=== PATIENT | male | born 1955 | race Two or more races ===

== ENCOUNTER 2017-01-31 09:05 | Day surgery (SDC) | payer MEDICARE ==
[~2017-01-31 09:05] MED LIST: Buffered Lidocaine 1% SYR 3ML* 3 ML/SYR SYRINGE INTRADERM ONE; Midazolam* 1 MG/ML 5 ML VIAL (5 MG) ONE; fentaNYL* 50 MCG/ML 2 ML VIAL (100 MCG VIAL) ONE
[2017-01-31] MEDS ORDERED: ceFAZolin 2 GM PREMIX (*) 2 GM/50 ML BAG IVPB ONE (09:26)
[2017-01-31] MEDS ORDERED: Lidocain 1% EPI 1:100,000 * 30 ML MDV ONE ×2 (09:49→10:20)
[2017-01-31 12:22] VITALS: BP 147/73
== END 2017-01-31 12:03 | disposition home or self-care (01) ==
LOC: OREAST 09:05
PROVIDERS: ATTEND Plastic Surgery
DX: C44.399 Other specified malignant neoplasm of skin of other parts of face (principal); I25.10 Atherosclerotic heart disease of native coronary artery without angina pectoris; Z95.1 Presence of aortocoronary bypass graft; Z79.01 Long term (current) use of anticoagulants; I10 Essential (primary) hypertension; G47.33 Obstructive sleep apnea (adult) (pediatric); Q21.1 Atrial septal defect; E78.5 Hyperlipidemia, unspecified
CPT/HCPCS: 88305; J0690; J2250; J3010

== ENCOUNTER 2018-03-10 12:21 | Inpatient (IN) | payer MEDICARE ==
[2018-03-10] MEDS ORDERED: NS 0.9% 1000 ML* 1,000 ML IV SCH (13:00)
[2018-03-10 13:14] LABS: ABS Basophils 0 10^3/ul (0-0.2); ABS Eosinophils 0.2 10^3/ul (0-0.6); ABS Lymphocytes 1.4 10^3/ul (1.0-4.8); ABS Monocytes 0.5 10^3/ul (0-0.8); ABS Neutrophils 5.3 10^3/ul (1.5-7.7); ABS Nucleated RBC 0 10^3/ul; Eosinophil % 2.6 % (0-6); Hematocrit 32 % (42-52); Hemoglobin 10.8 g/dl (14.0-18.0); Lymphocyte % 18.3 % (25-47); Mean Corpuscular HGB Conc 34 g/dl (31-36); Mean Corpuscular Hemoglobin 29 pg (27-31); Mean Corpuscular Volume 85 fL (80-94); Mean Platelet Volume 9.4 um3 (7.4-10.4); Nucleated Red Blood Cells % 0; Platelet Count 173 10^3/ul (150-450); Red Blood Count 3.71 10^6/ul (4.0-5.4); Red Cell Distribution Width 14 % (10.5-15); White Blood Count 7.4 10^3/ul (3.5-10.8)
[2018-03-10 13:22] LABS: INR 0.86 (0.77-1.02)
[2018-03-10 13:32] LABS: EGFR Non-African American 13.5 (>60)
[2018-03-10 13:32] LABS: Urine Appearance Clear; Urine Blood Negative (Negative); Urine Color Yellow; Urine Ketones Negative (Negative); Urine Protein 2+(100 mg/dL) (Negative); Urine Urobilinogen Negative (Negative)
--- NOTE | 2018-03-10 13:38 | RAD ---
INDICATION: Bradycardia COMPARISON: November 11, 2015 TECHNIQUE: An AP portable view obtained at 1317 hours is submitted. FINDINGS: Bones/Soft Tissues: There are no acute bony findings. There is sternotomy Cardiomediastinal: The cardiac silhouette is enlarged, unchanged. Lungs: There are no infiltrates. Pleura: There are no pleural effusions. Other: None IMPRESSION: ENLARGED CARDIAC SILHOUETTE. LUNGS CLEAR
[2018-03-10] MEDS ORDERED: Atropine SYRINGE* 0.1 MG/ML 10 ML SYRINGE (1 MG) ONE (13:41)
[2018-03-10] MEDS ORDERED: Atropine SYRINGE* 0.1 MG/ML 10 ML SYRINGE (1 MG) IV PUSH ONE (13:44)
[2018-03-10] MEDS ORDERED: Midazolam* 1 MG/ML 5 ML VIAL (5 MG) ONE (13:58)
[2018-03-10] MEDS ORDERED: NS 0.9% 1000 ML* 3,000 ML IV ONE (14:41)
[2018-03-10] MEDS ORDERED: Ondansetron INJ* 2 MG/ML VIAL IV PRN (14:46)
[2018-03-10] MEDS ORDERED: Pantoprazole IV* 40 MG IV ONE (14:46)
[2018-03-10] MEDS ORDERED: Calcium Gluconate INJ* 1 GM in NS 0.9% 100 ML* 100 ML IVPB ONE (14:47)
[2018-03-10] MEDS ORDERED: Dextrose 50% Syringe 50 ML* 25 GM/50 ML SYRINGE IV PUSH ONE (14:50)
[2018-03-10] MEDS ORDERED: Insulin REGULAR(*) 1 UNITS UNIT IV PUSH ONE (14:51)
[2018-03-10] MEDS ORDERED: Sodium Polystyrene ORAL.SOL* 15 GM/60 ML BTL PO ONE (14:52)
[2018-03-10 15:53] LABS: Hematocrit 30 % (42-52); Hemoglobin 10.4 g/dl (14.0-18.0)
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
[2018-03-10 16:24] LABS: EGFR Non-African American 13.6 (>60)
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
[2018-03-10] MEDS: Pantoprazole IV* 80 MG in NS 0.9% 100 ML* 100 ML IVPB SCH (17:04)
[2018-03-10] MEDS ORDERED: Calcium Gluconate INJ* 1 GM in NS 0.9% 50 ML* 50 ML IV ONE (17:15)
[2018-03-10] MEDS ORDERED: hydrALAZINE TAB* 25 MG PO PRN (17:25)
[2018-03-10] MEDS ORDERED: hydrALAZINE IV* 20 MG/ML VIAL IV SLOW PU PRN (18:17)
[2018-03-10] MEDS: Insulin REGULAR(*) 1 UNITS UNIT SUBCUT SCH (18:20)
--- NOTE | 2018-03-10 19:10 | HP ---
CC: Dr. Caban; Pedro Ortega [facility]; Dr. Bauman; Dr. Salvador; Dr. Good * HISTORY AND PHYSICAL: DATE OF ADMISSION: 03/10/18 TIME OF EVALUATION: 2:20 p.m. PRIMARY CARE PROVIDER: Dr. Caban. NEUROLOGIST: Pedro Ortega [facility]. CONSULTING MACHINE GUN MECHANIC: Dr. Bauman. CONSULTING ENGINEERING PROFESSOR: Dr. Salvador. CONSULTING CHIEF CHEMIST: Dr. Good. CHIEF COMPLAINT: "I am weak." HISTORY OF PRESENT ILLNESS: Mr. Watson is a 63-year-old male with a complex past medical history including coronary artery disease, status post CABG in 2002 and multiple stents; hyperlipidemia; hypertension; recurrent TIAs, after which the patient underwent experimental left carotid artery bypass and stenting in [place] in 2009; percutaneous closure of PFO; type 2 diabetes; CKD , stage 3 to 4; obstructive sleep apnea; GERD; BPH; possible seizures, who presented to the emergency room with complaints of weakness. On 03/07/18, the patient had a skin lesion removed by his operations assistant and he was taking ibuprofen for pain. He later on switched ibuprofen to Tylenol, but he started to have multiple episodes of black stools associated with weakness, lightheadedness. Today, his symptoms became worse and he went to his primary care provider for evaluation, but when he arrived to the office, he was told he was too sick and needed to come to the emergency room for further evaluation. He denies chest pain, abdominal pain, nausea, vomiting, palpitations, or shortness of breath. His major complaint is that he feels very weak. He states that he is even too weak to talk and he asked that his give more of his history. PAST MEDICAL HISTORY: 1. CAD, status post CABG in 2002. 2. Status post stent, last stents were placed in 2013. 3. Hyperlipidemia. 4. Hypertension. 5. History of recurrent TIAs after which he underwent experimental left carotid artery bypass and stenting in [place] in 2009. 6. Percutaneous closure of PFO. 7. Type 2 diabetes. 8. CKD, stage 3 to 4. 9. Status post appendectomy. 10. Status post left knee tendon repair. 11. GERD. 12. BPH. 13. History of suspected seizures. 14. Obstructive sleep apnea. MEDICATION LIST: 1. Amlodipine 10 mg p.o. in the morning, 5 mg p.o. in the evening. 2. Vitamin C 1000 mg p.o. in the morning. 3. Aspirin 325 mg p.o. b.i.d. 4. BuSpar 10 mg p.o. b.i.d. 5. Cholecalciferol 2000 units p.o. in the morning. 6. Citalopram 40 mg p.o. in the morning. 7. Clopidogrel 75 mg p.o. in the morning. 8. Finasteride 5 mg p.o. in the evening. 9. Furosemide 40 mg p.o. in the morning. 10. Imdur 240 mg p.o. in the morning. 11. Lisinopril 5 mg p.o. in the morning. 12. Magnesium oxide 400 mg p.o. q.a.m. 13. Metformin 500 mg p.o. b.i.d. 14. Metoprolol tartrate 100 mg p.o. b.i.d. 15. Centrum Silver Men 1 tablet p.o. in the morning. 16. Nitroglycerin 0.4 mg sublingual q.5 minutes p.r.n. chest pain. 17. Fish Oil Triple Strength 1 capsule p.o. t.i.d. 18. Omeprazole 40 mg p.o. q.a.m. 19. Rosuvastatin 20 mg p.o. q.a.m. 20. Spironolactone 25 mg p.o. b.i.d. 21. Tamsulosin 0.4 mg p.o. q.p.m. 22. Vitamin B Complex 1 tablet p.o. q.a.m. ALLERGIES: The patient had rash with BACTRIM. FAMILY HISTORY: Father had a history of CAD. Mother, history of CAD and diabetes. A brother and a sister with hypertension and diabetes. SOCIAL HISTORY: No history of tobacco, alcohol, or drug use. Surrogate decision maker is his , Malka Watson, who is present during our conversation, phone number is [phone]. REVIEW OF SYSTEMS: A 14-point review of systems was performed, and all the pertinent negative and positive findings are in the HPI. PHYSICAL EXAMINATION GENERAL: The patient is an elderly male, lying in the ER stretcher, pale. VITAL SIGNS: Temperature 97.7, heart rate is 28, respiratory rate 16, oxygen saturation 97% on room air, blood pressure is 143/80. HEENT: Pupils are equal, pale mucous membranes. CHEST: Breath sounds are present bilaterally with no added no sounds. CVS: Normal S1, and S2. Regular rate and rhythm. Bradycardic. ABDOMEN: Soft, nontender, nondistended. Bowel sounds are present. EXTREMITIES: No edema. NEURO: He is alert and oriented x3. Able to move all 4 extremities, but states that he feels very weak and would prefer that his answer question. SKIN: Pale and clammy. DIAGNOSTIC STUDIES/LAB DATA: The patient had a CBC that showed a WBC of 7.4, hemoglobin of 10.8, hematocrit of 32, platelets of 173 with 71% neutrophils. INR is 0.86. Chemistry showed sodium 132, potassium 5.9, chloride of 103, bicarb was 22, BUN was 65, creatinine of 4.4, glucose of 122, lactic acid of 0.4 , calcium of 9.1, magnesium 2.7. LFTs are normal. Troponin 0.02. BNP is 878. Urinalysis showed 2+ protein. Stool for occult blood was negative. EKG done on 03/10/18 at 12:32 p.m. showed junctional rhythm at 36 beats per minute and a repeat one done on the same day at 13:48, showed still junctional rhythm with 29 beats per minute and that is new when compared to his prior EKG from January 2016. Chest x-ray showed enlarged cardiac silhouette and lungs are clear. ASSESSMENT AND PLAN: Mr. Watson is a 63-year-old male with a complex past medical history that includes coronary artery disease, status post coronary artery bypass graft and stents; hyperlipidemia; hypertension; recurrent transient ischemic attack, status post experimental left carotid artery bypass and stenting; percutaneous closure of patent foramen ovale; type 2 diabetes; chronic kidney disease, stage 3 to 4; gastroesophageal reflux disease; benign prostatic hyperplasia; sleep apnea, who presents to the emergency room with complaints of weakness, found to have a probable upper gastrointestinal bleed and significant bradycardia. 1. Upper gastrointestinal bleed. The patient is on dual-antiplatelet therapy and he also took ibuprofen over the weekend and it is probably the source of his upper gastrointestinal bleed. His BUN is elevated at 65 from a baseline around 30. He describes black stool, but even though his stool is negative for blood at this time, his history is very convincing. He will be admitted to the intensive care unit. He was already started on a Protonix drip and GI consultation was requested. Regarding his antiplatelet therapy, I discussed his case with Cardiology (Dr. Salvador) and considering the possibility of life- threatening bleed and the fact that his last stent was in 2013, he recommend stopping his antiplatelets for now. We will try to resume those medications as soon as it is safe. The patient and his understand that he will be at risk for thrombotic event, but at this point his bleeding may become life threatening and needs to be treated as a priority. 2. Symptomatic bradycardia. The patient's blood pressure is normal at this point, but he is symptomatic especially considering his gastrointestinal bleed. I am going to hold his antihypertensive. The patient will be admitted to intensive care unit and we are going to monitor him closely. His bradycardia is likely secondary to metoprolol and that medication will also be held. At this point, he has pacer pads on his chest, but as he is maintaining well and his blood pressure is in the normal numbers, he is going to monitored in the intensive care unit. Due to the complexity of his past medical history and presentation, Critical Care consultation was requested with Dr. Good. 3. Hyperkalemia. This is secondary to acute on chronic renal failure. As the patient has a junctional rhythm, we are going to treat his hyperkalemia with calcium gluconate, insulin/glucose, and Kayexalate. 4. Type 2 diabetes. The patient will be n.p.o. We are going to check fingersticks every 6 hours and cover with regular insulin as needed. 5. Anemia. This is secondary to gastrointestinal blood loss. His hemoglobin is 10.8 and does not seem to be far from his baseline of 11, but I believe the patient is hemoconcentrated and as we hydrate him, we will probably see this number drop. We are going to monitor his H and H closely and he will be transfused for hemoglobin below 8 considering his comorbidities. 6. Coronary artery disease. Appears to be stable at this time. The patient has no complaints of chest pain. He will be seen in consultation by Cardiology and at this point his aspirin, clopidogrel, and metoprolol will be held. 7. Benign prostatic hyperplasia. Finasteride and tamsulosin will held for now as the patient is n.p.o., but we will try to resume it as soon as possible. 8. DVT prophylaxis. The patient has a score of 2 on the DVT Prophylaxis Risk Assessment Guide, but pharmacological prophylaxis contraindicated in the setting of gastrointestinal bleed. He will have SCDs. 9. Code status is full. TIME SPENT: Approximately 70 minutes of critical care time was spent to complete the admission. [id number]/[facility] #: [id number] KIKI
[2018-03-10] MEDS: hydrALAZINE TAB* 25 MG PO SCH (19:54)
[2018-03-10] MEDS: Isosorbide Mononitrate ER TAB* 60 MG PO SCH (20:24)
[2018-03-10 21:05] LABS: Hematocrit 34 % (42-52); Hemoglobin 11.6 g/dl (14.0-18.0)
[2018-03-10 21:27] LABS: EGFR Non-African American 15.3 (>60)
--- NOTE | 2018-03-10 21:58 | CONS ---
CONSULTATION REPORT: DATE OF CONSULT: 03/10/18 REQUESTING PHYSICIAN: Dr. Bean. INDICATION: Melena. NARRATIVE: Mr. Watson is a very pleasant 63-year-old gentleman, I had seen him last in August of last year for an EGD and colonoscopy. His EGD revealed a hiatal hernia. The patient was brought in to the emergency room. He has been having melena over the past week. He was recently increased from 325 of aspirin once a day to twice a day. He also was taking some Advil on Saturday and Saturday; however, the melena proceeded the Advil. He has been feeling very weak and lethargic and pretty much just worn out, can barely get out of bed. He is having difficult time mentating and speaking, and his finally brought him to the emergency room today. He was found to be profoundly bradycardic with the heart rate around 27. He has been admitted to the intensive care unit. He has been seen by Cardiology additionally. They feel that his heart rate is due to his metoprolol. They are going to let it wear off. His current hemoglobin is 10.8, BUN is 65, but he does have a creatinine of 4.42. He is also on Plavix. PAST MEDICAL HISTORY: Significant for chronic kidney disease, multiple CVAs, peripheral vascular disease, coronary artery disease, patent foramen ovale, diabetes, hypertension, hyperlipidemia, obstructive sleep apnea. PAST SURGICAL HISTORY: Include carotid artery bypass, coronary artery stenting , recent skin biopsy. MEDICATIONS: Include, 1. Aspirin 325 mg twice a day. 2. BuSpar 5 mg twice a day. 3. Celexa 20 mg a day. 4. Trazodone 50 at night. 5. Flomax. 6. Metoprolol 50 twice a day. 7. Amlodipine 10 mg a day. 8. Plavix 75 mg a day. 9. Proscar 5 mg a day. 10. Protonix 40 mg a day. ALLERGIES: To SULFA and TRIMETHOPRIM. FAMILY HISTORY: Noncontributory. REVIEW OF SYSTEMS: Twelve systems were reviewed and other than that mentioned in the HPI were unremarkable. PHYSICAL EXAM: Temperature is 97.7, pulse is 27 to 51, blood pressure is 147/ 73. General: A weak-looking male, in no apparent distress, alert, he is oriented, pleasant, and fluent. HEENT: Mucous membranes are moist without lesions, ulcers or exudate. Neck is supple. Trachea is midline. Head is normocephalic, atraumatic. Heart: Regular rate and rhythm. Bradycardic. Lungs: Clear to auscultation. No wheezes, rales or rhonchi. Abdomen is obese , positive bowel sounds, soft, nontender, and nondistended. No hepatosplenomegaly, masses, rebound or guarding. Skin is pale and cool to the touch. DIAGNOSTIC STUDIES/LAB DATA: Labs of note, hemoglobin is 10.8 down from 11.1, his baseline is around 10 to 11; white count is 7.4; platelets of 173. BUN is 65, creatinine is 4.42. Sodium is 132, potassium is 5.9, BUN was 32 on December 14. He is heme negative. His INR is 0.86. ASSESSMENT AND PLAN: A very pleasant 63-year-old gentleman admitted with symptomatic bradycardia in addition to melena and then chronic anemia all in the setting of twice a day full strength aspirin use, some additional ibuprofen , and Plavix. It does appear that he is having potentially an upper gastrointestinal bleed. His BUN is much higher than it has been in the past. He is on both aspirin and ibuprofen. It does not appear to be a big bleed at this time. He is being placed in the ICU with IV Protonix. I think that this is a good idea. He has multiple IV access. Cardiologists are managing his bradycardia. He likely will need an EGD over the next few days as soon as his bradycardia has improved. We will continue to follow along very closely. [id number]/[facility] #: [id number] [facility]ITALPrakash
[2018-03-10] MEDS ORDERED: hydrALAZINE TAB* 25 MG PO ONE (22:14)
[2018-03-11] MEDS: Pantoprazole IV* 80 MG in NS 0.9% 100 ML* 100 ML IVPB SCH ×2 (00:32→07:33)
[2018-03-11] MEDS: Insulin REGULAR(*) 1 UNITS UNIT SUBCUT SCH ×2 (00:33→07:38)
[2018-03-11] MEDS: amLODIPine TAB* 5 MG PO SCH ×2 (05:45→10:32)
[2018-03-11 06:28] LABS: Hematocrit 35 % (42-52); Hemoglobin 12.1 g/dl (14.0-18.0); Mean Corpuscular HGB Conc 35 g/dl (31-36); Mean Corpuscular Hemoglobin 29 pg (27-31); Mean Corpuscular Volume 85 fL (80-94); Mean Platelet Volume 9.2 um3 (7.4-10.4); Platelet Count 177 10^3/ul (150-450); Red Blood Count 4.11 10^6/ul (4.0-5.4); Red Cell Distribution Width 14 % (10.5-15); White Blood Count 8.2 10^3/ul (3.5-10.8)
[2018-03-11 06:51] LABS: EGFR Non-African American 16.4 (>60)
[2018-03-11] MEDS: NS 0.9% 1000 ML* 1,000 ML IV SCH ×2 (07:10→21:54)
[2018-03-11] MEDS: hydrALAZINE TAB* 100 MG ** ONE HUNDRED PO SCH ×2 (07:41→16:57)
--- NOTE | 2018-03-11 09:13 | PN ---
Progress Note - Progress Note Date of Service: 03/11/17 Note: Progress Note Critical Care 24 hour events: -admitted to ICU yesterday -chauhan placed for obstruction, has 1+ liter in bladder drained -HR improved to 60s now -BP elevated overnight, had to increase hydralazine PO, added norvasc -no vom/nausea; green stool+ overnight x1, some tarry stool but no blood -no abd pain/fever/chills/cp/sob -awake, alert, no distress, hungry, wants to go home for wifes bday tomorrow. -cardiology at bedside this morning -on clear liquids last night only Tele: NSR Vitals: Vital Signs Temp 98.4 F 03/11/18 08:00 Pulse 60 03/11/18 08:00 Resp 21 03/11/18 08:00 BP 179/87 03/11/18 07:00 Pulse Ox 94 03/11/18 08:00 Intake & Output 03/10/18 03/11/18 03/11/18 18:59 06:59 18:59 Intake Total 200 596.8 0 Output Total 1230 4550 375 Balance -1030 -3953.2 -375 Weight 245 lb 9.519 oz 188 lb 0.869 oz Intake: IV Fluids 200 472 NS (0.9%) 472 Medicated IV 104.8 GEN - Pantoprazole/ 104.8 Protonix Oral 0 20 0 Output: Urine 180 0 Chauhan 1050 2500 375 Other: Date of Last Bowel 03/11/18 Movement # Bowel Movements 1 1 Estimated Stool Amount Large O2/Vent: RA Infusions: NS 75cc/hr Current Medications: Amlodipine Besylate (Norvasc Tab*) 5 mg PO DAILY [facility] Last Admin: 03/11/18 05:45 Dose: 5 mg Buspirone HCl (Buspar Tab*) 10 mg PO BID [facility] Citalopram Hydrobromide (Celexa Tab*) 40 mg PO QAM [facility] Clopidogrel Bisulfate (Plavix Tab*) 75 mg PO QAM [facility] Finasteride (Proscar Tab*) 5 mg PO QPM [facility] Hydralazine HCl (Apresoline Iv*) 10 mg IV SLOW PU Q2H PRN PRN Reason: Systolic Bp Greater Than:180 Last Admin: 03/10/18 18:36 Dose: 10 mg Hydralazine HCl (Apresoline Tab*) 100 mg PO Q8H [facility] Last Admin: 03/11/18 07:41 Dose: 100 mg Pantoprazole Sodium 80 mg/ (Sodium Chloride) 100 mls @ 10 mls/hr IVPB Q10H [facility] Last Admin: 03/11/18 07:33 Dose: Not Given Sodium Chloride (Ns 0.9% 1000 Ml*) 1,000 mls @ 75 mls/hr IV PER RATE [facility] Last Admin: 03/11/18 07:10 Dose: 75 mls/hr Insulin Human Regular (Insulin Regular(*)) 0 units SUBCUT Q6HR [facility] PRN Reason: Protocol Last Admin: 03/11/18 07:38 Dose: Not Given Isosorbide Mononitrate (Imdur Er Tab*) 120 mg PO BID [facility] Last Admin: 03/10/18 20:24 Dose: 120 mg Ondansetron HCl (Zofran Inj*) 4 mg IV Q6H PRN PRN Reason: NAUSEA Tamsulosin HCl (Flomax Cap*) 0.4 mg PO QPM [facility] Physical Exam: General: awake, alert, no distress, no diaphoresis Head: normocephalic, atraumatic HEENT: mild pallor, no icterus, moist mucous membranes Neck: soft, supple, no jvd, no stridor CVS: regular, normal rate, no murmur Resp: bilateral air entry, no rhales, no wheeze, no rhonchi, no acc muscle use; old sternotomy scar+ Abdomen: soft, nontender, nondistended, bowel sounds present Ext: pulses+, warm, no edema Skin: intact, no breakdown; right arm biopsy site intact Neuro: awake, alert, orientedx3, moving all extremities, no gross focal deficit Labs: Laboratory Results - last 24 hr 03/10/18 03/10/18 03/10/18 12:52 12:55 12:55 WBC RBC Hgb Hct MCV MCH MCHC RDW Plt Count MPV Neut % (Auto) Lymph % (Auto) [place] % (Auto) Eos % (Auto) Baso % (Auto) Absolute Neuts (auto) Absolute Lymphs (auto) Absolute Monos (auto) Absolute Eos (auto) Absolute Basos (auto) Absolute Nucleated RBC Nucleated RBC % INR (Anticoag Therapy) 0.86 APTT 28.8 Sodium Potassium Chloride Carbon Dioxide Anion Gap BUN Creatinine Est GFR ( Amer) Est GFR (Non-Af Amer) BUN/Creatinine Ratio Glucose POC Glucose (mg/dL) Lactic Acid Calcium Magnesium Total Bilirubin AST ALT Alkaline Phosphatase Ammonia Total Creatine Kinase CK-MB (CK-2) Troponin I C-Reactive Protein B-Natriuretic Peptide Total Protein Albumin Globulin Albumin/Globulin Ratio Lipase TSH Urine Color Yellow Urine Appearance Clear Urine pH 6.0 Ur Specific [place] 1.010 Urine Protein 2+(100 mg/dl) A Urine Ketones Negative Urine Blood Negative Urine Nitrate Negative Urine Bilirubin Negative Urine Urobilinogen Negative Ur Leukocyte Esterase Negative Urine WBC (Auto) Trace(0-5/hpf) Urine RBC (Auto) Trace(0-2/hpf) Ur Squamous Epith Cells Present A Urine Bacteria Absent Urine Glucose Negative Urine Ascorbic Acid * A Blood Type B Positive Antibody Screen Negative 03/10/18 03/10/18 03/10/18 12:55 12:55 12:55 WBC 7.4 RBC 3.71 L Hgb 10.8 L Hct 32 L MCV 85 MCH 29 MCHC 34 RDW 14 Plt Count 173 MPV 9.4 Neut % (Auto) 71.8 Lymph % (Auto) 18.3 L [place] % (Auto) 6.8 Eos % (Auto) 2.6 Baso % (Auto) 0.5 Absolute Neuts (auto) 5.3 Absolute Lymphs (auto) 1.4 Absolute Monos (auto) 0.5 Absolute Eos (auto) 0.2 Absolute Basos (auto) 0 Absolute Nucleated RBC 0 Nucleated RBC % 0 INR (Anticoag Therapy) APTT Sodium 132 L Potassium 5.9 H Chloride 103 Carbon Dioxide 22 Anion Gap 7 BUN 65 H Creatinine 4.42 H Est GFR ( Amer) 17.4 Est GFR (Non-Af Amer) 13.5 BUN/Creatinine Ratio 14.7 Glucose 122 H POC Glucose (mg/dL) Lactic Acid Calcium 9.1 Magnesium 2.7 Total Bilirubin 0.60 AST 18 ALT 32 Alkaline Phosphatase 74 Ammonia 37 Total Creatine Kinase 54 CK-MB (CK-2) 2.3 Troponin I 0.02 C-Reactive Protein 2.00 B-Natriuretic Peptide 878 H Total Protein 6.6 Albumin 3.9 Globulin 2.7 Albumin/Globulin Ratio 1.4 Lipase 75 TSH 3.24 Urine Color Urine Appearance Urine pH Ur Specific [place] Urine Protein Urine Ketones Urine Blood Urine Nitrate Urine Bilirubin Urine Urobilinogen Ur Leukocyte Esterase Urine WBC (Auto) Urine RBC (Auto) Ur Squamous Epith Cells Urine Bacteria Urine Glucose Urine Ascorbic Acid Blood Type Antibody Screen 03/10/18 03/10/18 03/10/18 12:55 15:45 15:45 WBC RBC Hgb 10.4 L Hct 30 L MCV MCH MCHC RDW Plt Count MPV Neut % (Auto) Lymph % (Auto) [place] % (Auto) Eos % (Auto) Baso % (Auto) Absolute Neuts (auto) Absolute Lymphs (auto) Absolute Monos (auto) Absolute Eos (auto) Absolute Basos (auto) Absolute Nucleated RBC Nucleated RBC % INR (Anticoag Therapy) APTT Sodium 134 L Potassium 5.5 H Chloride 106 Carbon Dioxide 21 L Anion Gap 7 BUN 65 H Creatinine 4.38 H Est GFR ( Amer) 17.5 Est GFR (Non-Af Amer) 13.6 BUN/Creatinine Ratio 14.8 Glucose 92 POC Glucose (mg/dL) Lactic Acid 0.4 L Calcium 8.6 Magnesium Total Bilirubin AST ALT Alkaline Phosphatase Ammonia Total Creatine Kinase CK-MB (CK-2) Troponin I C-Reactive Protein B-Natriuretic Peptide Total Protein Albumin Globulin Albumin/Globulin Ratio Lipase TSH Urine Color Urine Appearance Urine pH Ur Specific [place] Urine Protein Urine Ketones Urine Blood Urine Nitrate Urine Bilirubin Urine Urobilinogen Ur Leukocyte Esterase Urine WBC (Auto) Urine RBC (Auto) Ur Squamous Epith Cells Urine Bacteria Urine Glucose Urine Ascorbic Acid Blood Type Antibody Screen 03/10/18 03/10/18 03/10/18 17:49 20:45 20:45 WBC RBC Hgb 11.6 L Hct 34 L MCV MCH MCHC RDW Plt Count MPV Neut % (Auto) Lymph % (Auto) [place] % (Auto) Eos % (Auto) Baso % (Auto) Absolute Neuts (auto) Absolute Lymphs (auto) Absolute Monos (auto) Absolute Eos (auto) Absolute Basos (auto) Absolute Nucleated RBC Nucleated RBC % INR (Anticoag Therapy) APTT Sodium 136 L Potassium 5.5 H Chloride 107 Carbon Dioxide 20 L Anion Gap 9 BUN 64 H Creatinine 3.96 H Est GFR ( Amer) 19.7 Est GFR (Non-Af Amer) 15.3 BUN/Creatinine Ratio 16.2 Glucose 99 POC Glucose (mg/dL) 95 Lactic Acid Calcium 9.5 Magnesium Total Bilirubin AST ALT Alkaline Phosphatase Ammonia Total Creatine Kinase CK-MB (CK-2) Troponin I C-Reactive Protein B-Natriuretic Peptide Total Protein Albumin Globulin Albumin/Globulin Ratio Lipase TSH Urine Color Urine Appearance Urine pH Ur Specific [place] Urine Protein Urine Ketones Urine Blood Urine Nitrate Urine Bilirubin Urine Urobilinogen Ur Leukocyte Esterase Urine WBC (Auto) Urine RBC (Auto) Ur Squamous Epith Cells Urine Bacteria Urine Glucose Urine Ascorbic Acid Blood Type Antibody Screen 03/11/18 03/11/18 03/11/18 00:27 05:55 05:55 WBC 8.2 RBC 4.11 Hgb 12.1 L Hct 35 L MCV 85 MCH 29 MCHC 35 RDW 14 Plt Count 177 MPV 9.2 Neut % (Auto) Lymph % (Auto) [place] % (Auto) Eos % (Auto) Baso % (Auto) Absolute Neuts (auto) Absolute Lymphs (auto) Absolute Monos (auto) Absolute Eos (auto) Absolute Basos (auto) Absolute Nucleated RBC Nucleated RBC % INR (Anticoag Therapy) APTT Sodium 138 L Potassium 5.4 H Chloride 109 Carbon Dioxide 22 Anion Gap 7 BUN 57 H Creatinine 3.73 H Est GFR ( Amer) 21.1 Est GFR (Non-Af Amer) 16.4 BUN/Creatinine Ratio 15.3 Glucose 109 H POC Glucose (mg/dL) 95 Lactic Acid Calcium 9.5 Magnesium 2.4 Total Bilirubin AST ALT Alkaline Phosphatase Ammonia Total Creatine Kinase CK-MB (CK-2) Troponin I C-Reactive Protein B-Natriuretic Peptide Total Protein Albumin Globulin Albumin/Globulin Ratio Lipase TSH Urine Color Urine Appearance Urine pH Ur Specific [place] Urine Protein Urine Ketones Urine Blood Urine Nitrate Urine Bilirubin Urine Urobilinogen Ur Leukocyte Esterase Urine WBC (Auto) Urine RBC (Auto) Ur Squamous Epith Cells Urine Bacteria Urine Glucose Urine Ascorbic Acid Blood Type Antibody Screen 03/11/18 07:37 WBC RBC Hgb Hct MCV MCH MCHC RDW Plt Count MPV Neut % (Auto) Lymph % (Auto) [place] % (Auto) Eos % (Auto) Baso % (Auto) Absolute Neuts (auto) Absolute Lymphs (auto) Absolute Monos (auto) Absolute Eos (auto) Absolute Basos (auto) Absolute Nucleated RBC Nucleated RBC % INR (Anticoag Therapy) APTT Sodium Potassium Chloride Carbon Dioxide Anion Gap BUN Creatinine Est GFR ( Amer) Est GFR (Non-Af Amer) BUN/Creatinine Ratio Glucose POC Glucose (mg/dL) 118 H Lactic Acid Calcium Magnesium Total Bilirubin AST ALT Alkaline Phosphatase Ammonia Total Creatine Kinase CK-MB (CK-2) Troponin I C-Reactive Protein B-Natriuretic Peptide Total Protein Albumin Globulin Albumin/Globulin Ratio Lipase TSH Urine Color Urine Appearance Urine pH Ur Specific [place] Urine Protein Urine Ketones Urine Blood Urine Nitrate Urine Bilirubin Urine Urobilinogen Ur Leukocyte Esterase Urine WBC (Auto) Urine RBC (Auto) Ur Squamous Epith Cells Urine Bacteria Urine Glucose Urine Ascorbic Acid Blood Type Antibody Screen Imaging: cxr 03/10 - no infiltrate/effusion Assessment: 63y M pmhx of CAD s/p CABG, h/o CVA s/p Carotid/cerebral stent 2013 , DM, HLD, HTN, PVD, Perc Closure of PFO, Sleep Apnea, GERD, Skin Ca; States 1 week ago he was becoming more short of breath on exertion, increasing fatigue and weakness. Noticed stools were more black each day. No nausea/vom/abd pain. Stools more loose and black. Mild chest pressure last week and took NTG SL. Dizziness+, lightheaded+, no syncope/LOC. No change in urine outputs. No fever/ chills. Has been compliant with medications. Skin surgery 3 days back with excision, since then has taken motrin Saturday and Saturday, changed to Tylenol Saturday and today. At home normally on ASA 325 bid and Plavix 75mg daily for stents. -Sinus bradycardia, resolved -Hyperkalemia -TREVER likely from pre-renal azotemia/hypoperfusion/anemia/volume depletion -Suspected Upper GI hemorrhage 2/2 to NSAID/Aspirin -anemia Plan: Neuro- stable, awake, alert. h/o stroke with carotid stent in past. fall prec. will restart plavix po. CVS- BP stable, hypertensive. cont hydralazine 100 tid, norvasc 5, finasterid, imdur 120 bid. Sinus bradycardia improved to 60s now, hold off BB today, re- eval tomorrow. Hg stable, no drop noted, no transfusions given. IVF NS 75cc/ hour continued for now. Good urine output. Transfuse to keep Hg >7. no ACEI for now. Resp- RA, no distress ID- afebrile. wbc okay. no abx indicated. GI- No n/v/abd pain. Loose stools+ but once overnight. c.diff neg, culture pending. Minimal black stools, with stable h/h. Suspect gastritis as etiology. Will change PPI infusion to PPI IV bid. Need to discuss with GI regarding plan for EGD. WIll advance to full liquid diet for now. Holding ASA for now, will restart plavix tomorrow for PVD/stents/CAD/TIA history. No further NSAIDS. Renal- TREVER noted, multifactorial from NSAID + volume depletion from diuretics + poor po intake + GI hemorrhage + diarrhea. Cr coming down, K okay, no acidosis. Keep Chauhan today. K 5.4, no tx for now. WIll keep NS 75cc/hr for now. Hold diuretics. Heme- hg 12. Plt okay. Holding aspirin. Plavix restart tomorrow. Endo- fingersticks q6h. hold metformin 2/2 to TREVER. SSI q6h. Musculsk- oob to chair Wounds- none Nutrition- full liquid diet DVT prophylaxis: SCDs GI prophylaxis: PPI Central Line: no Arterial Line: no Chauhan Cathetor: yes 03/11 Disposition: ICU Code Status: full code Total Critical Care time is 35 minutes, excluding procedures/teaching Michael Good MD [employer] (Electronically Signed)
[2018-03-11] MEDS: Isosorbide Mononitrate ER TAB* 60 MG PO SCH ×2 (09:36→22:02)
--- NOTE | 2018-03-11 09:48 | PN ---
Subjective Date of Service: 03/11/18 Interval History: frustrated that he has a chauhan catheter Feels he has difficulty recalling events after CVA and gets frustrated but is actually doing a very good job Denies N/V, LH, CP SOB Had BM overnight but cannot tell me color/consistency Objective Active Medications: Amlodipine Besylate (Norvasc Tab*) 5 mg PO DAILY [facility] Last Admin: 03/11/18 05:45 Dose: 5 mg Buspirone HCl (Buspar Tab*) 10 mg PO BID [facility] Citalopram Hydrobromide (Celexa Tab*) 40 mg PO QAM [facility] Clopidogrel Bisulfate (Plavix Tab*) 75 mg PO QAM [facility] Finasteride (Proscar Tab*) 5 mg PO QPM [facility] Hydralazine HCl (Apresoline Iv*) 10 mg IV SLOW PU Q2H PRN PRN Reason: Systolic Bp Greater Than:180 Last Admin: 03/10/18 18:36 Dose: 10 mg Hydralazine HCl (Apresoline Tab*) 100 mg PO Q8H [facility] Last Admin: 03/11/18 07:41 Dose: 100 mg Sodium Chloride (Ns 0.9% 1000 Ml*) 1,000 mls @ 75 mls/hr IV PER RATE [facility] Last Admin: 03/11/18 07:10 Dose: 75 mls/hr Insulin Human Regular (Insulin Regular(*)) 0 units SUBCUT Q6HR [facility] PRN Reason: Protocol Last Admin: 03/11/18 07:38 Dose: Not Given Isosorbide Mononitrate (Imdur Er Tab*) 120 mg PO BID [facility] Last Admin: 03/11/18 09:36 Dose: 120 mg Ondansetron HCl (Zofran Inj*) 4 mg IV Q6H PRN PRN Reason: NAUSEA Pantoprazole Sodium (Protonix Iv*) 40 mg IV Q12HR [facility] Tamsulosin HCl (Flomax Cap*) 0.4 mg PO QPM [facility] Vital Signs - 8 hr 03/11/18 03/11/18 03/11/18 02:00 03:00 04:00 Temperature 98.1 F 98.1 F 98.1 F Pulse Rate 57 55 56 Respiratory 20 19 17 Rate Blood Pressure 159/90 153/89 151/86 (mmHg) O2 Sat by Pulse 94 94 94 Oximetry 03/11/18 03/11/18 03/11/18 05:00 05:01 06:00 Temperature 98.1 F 98.1 F 98.1 F Pulse Rate 58 58 60 Respiratory 15 13 26 Rate Blood Pressure 162/84 164/94 (mmHg) O2 Sat by Pulse 95 93 95 Oximetry 03/11/18 03/11/18 03/11/18 07:00 07:52 08:00 Temperature 98.2 F 98.4 F Pulse Rate 59 60 Respiratory 20 22 21 Rate Blood Pressure 179/87 (mmHg) O2 Sat by Pulse 94 94 Oximetry 03/11/18 03/11/18 08:08 09:00 Temperature 98.4 F 98.4 F Pulse Rate 60 64 Respiratory 18 21 Rate Blood Pressure 163/83 150/80 (mmHg) O2 Sat by Pulse 96 96 Oximetry Oxygen Devices in Use Now: None Appearance: sitting up, NAD Eyes: No Scleral Icterus, PERRLA Ears/Nose/Mouth/Throat: NL Teeth, Lips, Gums, Clear Oropharnyx Neck: NL Appearance and Movements; NL JVP, Trachea Midline Respiratory: Symmetrical Chest Expansion and Respiratory Effort, Clear to Auscultation Cardiovascular: NL Sounds; No Murmurs; No JVD, RRR Abdominal: NL Sounds; No Tenderness; No Distention, No Hepatosplenomegaly Lymphatic: No Cervical Adenopathy, No Axillary Adenopathy Extremities: No Edema Skin: No Rash or Ulcers Neurological: Alert and Oriented x 3 Lines/Tubes/Other Access: Clean, Dry and Intact Chauhan - murky, pink tinged fluid Result Diagrams: 03/11/18 05:55 03/11/18 05:55 Additional Lab and Data: Lab Results 03/10/18 03/10/18 03/10/18 Range/Units 12:52 12:55 12:55 WBC (3.5-10.8) 10^3/ul RBC (4.0-5.4) 10^6/ul Hgb (14.0-18.0) g/dl Hct (42-52) % MCV (80-94) fL MCH (27-31) pg MCHC (31-36) g/dl RDW (10.5-15) % Plt Count (150-450) 10^3/ul MPV (7.4-10.4) um3 Neut % (Auto) (38-83) % Lymph % (Auto) (25-47) % [place] % (Auto) (0-7) % Eos % (Auto) (0-6) % Baso % (Auto) (0-2) % Absolute Neuts (auto) (1.5-7.7) 10^3/ul Absolute Lymphs (auto) (1.0-4.8) 10^3/ul Absolute Monos (auto) (0-0.8) 10^3/ul Absolute Eos (auto) (0-0.6) 10^3/ul Absolute Basos (auto) (0-0.2) 10^3/ul Absolute Nucleated RBC 10^3/ul Nucleated RBC % INR (Anticoag Therapy) 0.86 (0.77-1.02) APTT 28.8 (26.0-36.3) seconds Sodium (139-145) mmol/L Potassium (3.5-5.0) mmol/L Chloride (101-111) mmol/L Carbon Dioxide (22-32) mmol/L Anion Gap (2-11) mmol/L BUN (6-24) mg/dL Creatinine (0.67-1.17) mg/dL Est GFR ( Amer) (>60) Est GFR (Non-Af Amer) (>60) BUN/Creatinine Ratio (8-20) Glucose (70-100) mg/dL Lactic Acid (0.5-2.0) mmol/L Calcium (8.6-10.3) mg/dL Magnesium (1.9-2.7) mg/dL Total Bilirubin (0.2-1.0) mg/dL AST (13-39) U/L ALT (7-52) U/L Alkaline Phosphatase (34-104) U/L Ammonia (16-53) mcmol/L Total Creatine Kinase (10-223) U/L CK-MB (CK-2) (0.6-6.3) ng/mL Troponin I (<0.04) ng/mL C-Reactive Protein (< 5.00) mg/L B-Natriuretic Peptide ( - 100) pg/mL Total Protein (6.4-8.9) g/dL Albumin (3.2-5.2) g/dL Globulin (2-4) g/dL Albumin/Globulin Ratio (1-3) Lipase (11.0-82.0) U/L TSH (0.34-5.60) mcIU/mL Urine Color Yellow Urine Appearance Clear Urine pH 6.0 (5-9) Ur Specific [place] 1.010 (1.010-1.030) Urine Protein 2+(100 mg/dl) A (Negative) Urine Ketones Negative (Negative) Urine Blood Negative (Negative) Urine Nitrate Negative (Negative) Urine Bilirubin Negative (Negative) Urine Urobilinogen Negative (Negative) Ur Leukocyte Esterase Negative (Negative) Urine WBC (Auto) Trace(0-5/hpf) (Absent) Urine RBC (Auto) Trace(0-2/hpf) (Absent) Ur Squamous Epith Cells Present A (Absent) Urine Bacteria Absent (Absent) Urine Glucose Negative (Negative) Urine Ascorbic Acid * A (Negative) Blood Type B Positive Antibody Screen Negative 03/10/18 03/10/18 03/10/18 Range/Units 12:55 12:55 12:55 WBC 7.4 (3.5-10.8) 10^3/ul RBC 3.71 L (4.0-5.4) 10^6/ul Hgb 10.8 L (14.0-18.0) g/dl Hct 32 L (42-52) % MCV 85 (80-94) fL MCH 29 (27-31) pg MCHC 34 (31-36) g/dl RDW 14 (10.5-15) % Plt Count 173 (150-450) 10^3/ul MPV 9.4 (7.4-10.4) um3 Neut % (Auto) 71.8 (38-83) % Lymph % (Auto) 18.3 L (25-47) % [place] % (Auto) 6.8 (0-7) % Eos % (Auto) 2.6 (0-6) % Baso % (Auto) 0.5 (0-2) % Absolute Neuts (auto) 5.3 (1.5-7.7) 10^3/ul Absolute Lymphs (auto) 1.4 (1.0-4.8) 10^3/ul Absolute Monos (auto) 0.5 (0-0.8) 10^3/ul Absolute Eos (auto) 0.2 (0-0.6) 10^3/ul Absolute Basos (auto) 0 (0-0.2) 10^3/ul Absolute Nucleated RBC 0 10^3/ul Nucleated RBC % 0 INR (Anticoag Therapy) (0.77-1.02) APTT (26.0-36.3) seconds Sodium 132 L (139-145) mmol/L Potassium 5.9 H (3.5-5.0) mmol/L Chloride 103 (101-111) mmol/L Carbon Dioxide 22 (22-32) mmol/L Anion Gap 7 (2-11) mmol/L BUN 65 H (6-24) mg/dL Creatinine 4.42 H (0.67-1.17) mg/dL Est GFR ( Amer) 17.4 (>60) Est GFR (Non-Af Amer) 13.5 (>60) BUN/Creatinine Ratio 14.7 (8-20) Glucose 122 H (70-100) mg/dL Lactic Acid (0.5-2.0) mmol/L Calcium 9.1 (8.6-10.3) mg/dL Magnesium 2.7 (1.9-2.7) mg/dL Total Bilirubin 0.60 (0.2-1.0) mg/dL AST 18 (13-39) U/L ALT 32 (7-52) U/L Alkaline Phosphatase 74 (34-104) U/L Ammonia 37 (16-53) mcmol/L Total Creatine Kinase 54 (10-223) U/L CK-MB (CK-2) 2.3 (0.6-6.3) ng/mL Troponin I 0.02 (<0.04) ng/mL C-Reactive Protein 2.00 (< 5.00) mg/L B-Natriuretic Peptide 878 H ( - 100) pg/mL Total Protein 6.6 (6.4-8.9) g/dL Albumin 3.9 (3.2-5.2) g/dL Globulin 2.7 (2-4) g/dL Albumin/Globulin Ratio 1.4 (1-3) Lipase 75 (11.0-82.0) U/L TSH 3.24 (0.34-5.60) mcIU/mL Urine Color Urine Appearance Urine pH (5-9) Ur Specific [place] (1.010-1.030) Urine Protein (Negative) Urine Ketones (Negative) Urine Blood (Negative) Urine Nitrate (Negative) Urine Bilirubin (Negative) Urine Urobilinogen (Negative) Ur Leukocyte Esterase (Negative) Urine WBC (Auto) (Absent) Urine RBC (Auto) (Absent) Ur Squamous Epith Cells (Absent) Urine Bacteria (Absent) Urine Glucose (Negative) Urine Ascorbic Acid (Negative) Blood Type Antibody Screen 03/10/18 Range/Units 12:55 WBC (3.5-10.8) 10^3/ul RBC (4.0-5.4) 10^6/ul Hgb (14.0-18.0) g/dl Hct (42-52) % MCV (80-94) fL MCH (27-31) pg MCHC (31-36) g/dl RDW (10.5-15) % Plt Count (150-450) 10^3/ul MPV (7.4-10.4) um3 Neut % (Auto) (38-83) % Lymph % (Auto) (25-47) % [place] % (Auto) (0-7) % Eos % (Auto) (0-6) % Baso % (Auto) (0-2) % Absolute Neuts (auto) (1.5-7.7) 10^3/ul Absolute Lymphs (auto) (1.0-4.8) 10^3/ul Absolute Monos (auto) (0-0.8) 10^3/ul Absolute Eos (auto) (0-0.6) 10^3/ul Absolute Basos (auto) (0-0.2) 10^3/ul Absolute Nucleated RBC 10^3/ul Nucleated RBC % INR (Anticoag Therapy) (0.77-1.02) APTT (26.0-36.3) seconds Sodium (139-145) mmol/L Potassium (3.5-5.0) mmol/L Chloride (101-111) mmol/L Carbon Dioxide (22-32) mmol/L Anion Gap (2-11) mmol/L BUN (6-24) mg/dL Creatinine (0.67-1.17) mg/dL Est GFR ( Amer) (>60) Est GFR (Non-Af Amer) (>60) BUN/Creatinine Ratio (8-20) Glucose (70-100) mg/dL Lactic Acid 0.4 L (0.5-2.0) mmol/L Calcium (8.6-10.3) mg/dL Magnesium (1.9-2.7) mg/dL Total Bilirubin (0.2-1.0) mg/dL AST (13-39) U/L ALT (7-52) U/L Alkaline Phosphatase (34-104) U/L Ammonia (16-53) mcmol/L Total Creatine Kinase (10-223) U/L CK-MB (CK-2) (0.6-6.3) ng/mL Troponin I (<0.04) ng/mL C-Reactive Protein (< 5.00) mg/L B-Natriuretic Peptide ( - 100) pg/mL Total Protein (6.4-8.9) g/dL Albumin (3.2-5.2) g/dL Globulin (2-4) g/dL Albumin/Globulin Ratio (1-3) Lipase (11.0-82.0) U/L TSH (0.34-5.60) mcIU/mL Urine Color Urine Appearance Urine pH (5-9) Ur Specific [place] (1.010-1.030) Urine Protein (Negative) Urine Ketones (Negative) Urine Blood (Negative) Urine Nitrate (Negative) Urine Bilirubin (Negative) Urine Urobilinogen (Negative) Ur Leukocyte Esterase (Negative) Urine WBC (Auto) (Absent) Urine RBC (Auto) (Absent) Ur Squamous Epith Cells (Absent) Urine Bacteria (Absent) Urine Glucose (Negative) Urine Ascorbic Acid (Negative) Blood Type Antibody Screen Microbiology and Other Data: Microbiology 03/11/18 01:00 Stool Gross Appearance - Final Stool C. 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 (2) GIB (gastrointestinal bleeding) Comment: stool occult negative No e/o ongoing bleeding and H/H stable transitioned to PPI IV BID advance diet Will discuss with GI if needs EGD at this time (3) Acute kidney failure Comment: [employer] Reports 1 week diarrhea [employer] NSAID use after skin biopsy Poor forward flow in setting of bradycardia c/w IV normal saline (4) Bradycardia Comment: Suspect in setting of beta kedar with AKF holding metoprolol bradycardia resolved (5) Diabetes Comment: Lispro SS (6) HTN (hypertension) Comment: hydralazine imdur (7) S/P coronary artery stent placement Comment: Hold ASA c/w plavix (8) Hyperkalemia Comment: kayexalate x 1 (9) DVT prophylaxis Comment: SCDs
[2018-03-11] MEDS ORDERED: Sodium Polystyrene ORAL.SOL* 15 GM/60 ML BTL PO ONE (09:50)
[2018-03-11] MEDS ORDERED: Dextrose 50% Syringe 50 ML* 25 GM/50 ML SYRINGE IV PUSH PRN (09:51)
[2018-03-11] MEDS: Pantoprazole IV* 40 MG IV SCH ×2 (10:44→21:59)
--- NOTE | 2018-03-11 10:56 | CONS ---
CC: Dr. Bauman; Dr. Hannon; Dr. Caban CARDIOLOGY CONSULTATION DATE OF CONSULT: 03/10/2018. INDICATION FOR CONSULTATION: Bradycardia. HISTORY OF PRESENT ILLNESS: The patient is a 63-year-old gentleman with a history of coronary artery disease, history of coronary bypass surgery and multiple stents in the past, history of renal insuff iciency, hypertension, and TIA's in the past who came to the emergency room because of feeling poorly . The patient states that he has been having dark stools for the past couple of days. He has been t aking slightly more Motrin than he usually does. He also has been having loose bowel movements. The patient denied any chest pain. He denied any lightheadedness, dizziness, or syncope. On arrival to the emergency room, he was noted to be bradycardic, down to 30 beats per minute with occasional junc tional rhythms. Again, the patient had no anginal-type symptoms. The patient was admitted to the [facility] for evaluation for possible GI bleed and his renal insufficiency and bradycardia. The patient denied any nausea or vomiting. He denied any fevers or chills. PAST MEDICAL HISTORY: Significant for coronary artery disease. He had a bypass surgery in 2002. Hi s last stent implantation was 2013. History of TIA's in the past. History of carotid bypass and thiago nting in 2009. History of a PFO closure in the distant past. OUTPATIENT MEDICATIONS: 1. Amlodipine 10 mg in the morning and 5 mg in the evening. 2. Aspirin 325 a day. 3. Calciferol 2,000 units in the morning. 4. Citalopram 40 mg a day. 5. Plavix 75 mg a day. 6. Finasteride 5 mg in the evening. 7. Lasix 40 mg a day. 8. Imdur 240 mg a day. 9. Lisinopril 5 mg a day. 10. Metformin 500 mg b.i.d. 11. Metoprolol Tartrate 100 mg b.i.d. 12. Fish oil tablets. 13. Omeprazole 40 mg a day. 14. Crestor 20 mg a day. 15. Spironolactone 25 mg b.i.d. 16. Flomax 0.4 mg a day. ALLERGIES: BACTRIM. FAMILY HISTORY: Father had a history of coronary artery disease. Mother had a history of diabetes. SOCIAL HISTORY: He is . He denies tobacco or alcohol use. He is retired. PHYSICAL EXAM: Vital Signs: Height 6 feet, weight 188 pounds. Temperature 98, heart rate 40, blood pressure 142/83, respiratory rate 20, oxygen saturation 96 percent on room air. Sclerae anicteric. Oropharynx is pink without erythema. Neck: Carotids 2+ without bruits. JVD is normal. Thyroid is normal. Cardiac: S1, S2 without any murmurs, rubs, or gallops. Lungs: Clear to auscultation bilate rally. There is no dullness to percussion. Abdomen: Soft, nontender, nondistended with normoactive bowel sounds. Extremities: Minimal edema. Neuro: The patient is awake, alert, and oriented. He m oves all four extremities equally. DIAGNOSTIC STUDIES/LAB DATA: White count 7.4, hemoglobin 10, hematocrit 32, platelet count 175. Lona mistries: Potassium 5.9, BUN 65, creatinine 4.4 which is up from his baseline of 1.8. AST normal. A LT within normal limits. Troponin level was normal. TSH 3.2. EKG shows a junctional rhythm at 30 beats per minute. IMPRESSION: This is a 63-year-old gentleman with a history of coronary artery disease who came to [facility] emergency room feeling poorly for the past couple of days with a history of some dark, tarry stools . The question is whether the patient was having a GI bleed. RECOMMENDATIONS: At this time, stop his aspirin and Plavix. The patient's last cardiac event was mo re than three years ago. The patient is bradycardic. My interpretation is that he is bradycardic because of the Metoprolol an d his dehydration. At this point, I do not think any other work- up is necessary. I would stop his Metoprolol. I would see if his heart rate came up with just rehydration. Further recommendations pending his hospital course. [id number]/[facility] #: [id number]
[2018-03-11 11:39] LABS: Urine Appearance Cloudy; Urine Blood 3+ (Negative); Urine Color Red; Urine Ketones Negative (Negative); Urine Protein 3+(>=500 mg/dL) (Negative); Urine Specific Gravity 1.015 (1.010-1.030); Urine Urobilinogen Negative (Negative)
[2018-03-11] MEDS: Insulin LISPRO* 1 UNITS UNIT SUBCUT SCH ×3 (12:03→22:01)
[2018-03-11] MEDS: hydrALAZINE TAB* 25 MG PO SCH (14:24)
[2018-03-11] MEDS: Finasteride TAB* 5 MG PO SCH (17:57)
[2018-03-11] MEDS: Tamsulosin CAP* 0.4 MG PO SCH (17:57)
[2018-03-11] MEDS: busPIRone TAB* 10 MG PO SCH (22:02)
[2018-03-12] MEDS: hydrALAZINE TAB* 100 MG ** ONE HUNDRED PO SCH ×4 (00:48→23:36)
[2018-03-12 05:25] LABS: Hematocrit 32 % (42-52); Hemoglobin 10.9 g/dl (14.0-18.0); Mean Corpuscular HGB Conc 34 g/dl (31-36); Mean Corpuscular Hemoglobin 29 pg (27-31); Mean Corpuscular Volume 85 fL (80-94); Mean Platelet Volume 8.6 um3 (7.4-10.4); Platelet Count 180 10^3/ul (150-450); Red Blood Count 3.72 10^6/ul (4.0-5.4); Red Cell Distribution Width 14 % (10.5-15); White Blood Count 9.1 10^3/ul (3.5-10.8)
[2018-03-12 05:50] LABS: EGFR Non-African American 16.5 (>60)
[2018-03-12] MEDS: Insulin LISPRO* 1 UNITS UNIT SUBCUT SCH ×4 (08:24→21:32)
[2018-03-12] MEDS: Isosorbide Mononitrate ER TAB* 60 MG PO SCH ×2 (08:49→21:08)
[2018-03-12] MEDS: amLODIPine TAB* 5 MG PO SCH (08:50)
[2018-03-12] MEDS: Clopidogrel TAB* 75 MG PO SCH (08:50)
[2018-03-12] MEDS: Pantoprazole IV* 40 MG IV SCH ×2 (08:50→21:04)
[2018-03-12] MEDS: Citalopram TAB* 40 MG PO SCH (08:50)
[2018-03-12] MEDS: busPIRone TAB* 10 MG PO SCH ×2 (08:50→21:07)
[2018-03-12] MEDS: NS 0.9% 1000 ML* 1,000 ML IV SCH ×3 (11:02→22:08)
--- NOTE | 2018-03-12 14:08 | PN ---
Subjective Date of Service: 03/12/18 Interval History: Seen and examined, discussed care with on telephone while at bedside Pt noted several episodes of stool incontinence while passing flatus which is not uncommon for him He also notes a burning sensation that feels like it is located inside his bladder. He has an urge to urinate despite presence of chauhan catheter. Urine is perla colored, less bloody than yesterday and now without any clots. Objective Active Medications: Amlodipine Besylate (Norvasc Tab*) 5 mg PO DAILY [facility] Last Admin: 03/12/18 08:50 Dose: 5 mg Buspirone HCl (Buspar Tab*) 10 mg PO BID [facility] Last Admin: 03/12/18 08:50 Dose: 10 mg Citalopram Hydrobromide (Celexa Tab*) 40 mg PO QAM [facility] Last Admin: 03/12/18 08:50 Dose: 40 mg Clopidogrel Bisulfate (Plavix Tab*) 75 mg PO QAM [facility] Last Admin: 03/12/18 08:50 Dose: 75 mg Dextrose (D50w Syringe 50 Ml*) 12.5 gm IV PUSH .FOR FS < 60 - SS PRN PRN Reason: FS < 60 Finasteride (Proscar Tab*) 5 mg PO QPM [facility] Last Admin: 03/11/18 17:57 Dose: 5 mg Hydralazine HCl (Apresoline Iv*) 10 mg IV SLOW PU Q2H PRN PRN Reason: Systolic Bp Greater Than:180 Last Admin: 03/10/18 18:36 Dose: 10 mg Hydralazine HCl (Apresoline Tab*) 100 mg PO Q8H [facility] Last Admin: 03/12/18 08:49 Dose: 100 mg Sodium Chloride (Ns 0.9% 1000 Ml*) 1,000 mls @ 100 mls/hr IV PER RATE [facility] Stop: 03/13/18 23:23 Last Admin: 03/12/18 13:36 Dose: 100 mls/hr Insulin Human Lispro (Humalog*) 0 units SUBCUT ACHS [facility] PRN Reason: Protocol Last Admin: 03/12/18 13:33 Dose: 1 units Isosorbide Mononitrate (Imdur Er Tab*) 120 mg PO BID [facility] Last Admin: 03/12/18 08:49 Dose: 120 mg Ondansetron HCl (Zofran Inj*) 4 mg IV Q6H PRN PRN Reason: NAUSEA Pantoprazole Sodium (Protonix Iv*) 40 mg IV Q12HR [facility] Last Admin: 03/12/18 08:50 Dose: 40 mg Tamsulosin HCl (Flomax Cap*) 0.4 mg PO QPM [facility] Last Admin: 03/11/18 17:57 Dose: 0.4 mg Vital Signs - 8 hr 03/12/18 03/12/18 07:26 08:00 Temperature 98.4 F Pulse Rate 90 Respiratory 20 20 Rate Blood Pressure 143/75 (mmHg) O2 Sat by Pulse 97 Oximetry Oxygen Devices in Use Now: None Appearance: NAD Eyes: No Scleral Icterus, PERRLA Ears/Nose/Mouth/Throat: NL Teeth, Lips, Gums, Clear Oropharnyx Neck: NL Appearance and Movements; NL JVP, Trachea Midline Respiratory: Symmetrical Chest Expansion and Respiratory Effort, Clear to Auscultation Cardiovascular: NL Sounds; No Murmurs; No JVD, RRR Abdominal: NL Sounds; No Tenderness; No Distention, No Hepatosplenomegaly Lymphatic: No Cervical Adenopathy Extremities: No Edema Neurological: Alert and Oriented x 3, - - occasional word finding difficulties that are frustrating for patient Result Diagrams: 03/12/18 05:17 03/12/18 05:17 Additional Lab and Data: Lab Results 03/10/18 03/10/18 03/10/18 Range/Units 12:52 12:55 12:55 WBC (3.5-10.8) 10^3/ul RBC (4.0-5.4) 10^6/ul Hgb (14.0-18.0) g/dl Hct (42-52) % MCV (80-94) fL MCH (27-31) pg MCHC (31-36) g/dl RDW (10.5-15) % Plt Count (150-450) 10^3/ul MPV (7.4-10.4) um3 Neut % (Auto) (38-83) % Lymph % (Auto) (25-47) % [place] % (Auto) (0-7) % Eos % (Auto) (0-6) % Baso % (Auto) (0-2) % Absolute Neuts (auto) (1.5-7.7) 10^3/ul Absolute Lymphs (auto) (1.0-4.8) 10^3/ul Absolute Monos (auto) (0-0.8) 10^3/ul Absolute Eos (auto) (0-0.6) 10^3/ul Absolute Basos (auto) (0-0.2) 10^3/ul Absolute Nucleated RBC 10^3/ul Nucleated RBC % INR (Anticoag Therapy) 0.86 (0.77-1.02) APTT 28.8 (26.0-36.3) seconds Sodium (139-145) mmol/L Potassium (3.5-5.0) mmol/L Chloride (101-111) mmol/L Carbon Dioxide (22-32) mmol/L Anion Gap (2-11) mmol/L BUN (6-24) mg/dL Creatinine (0.67-1.17) mg/dL Est GFR ( Amer) (>60) Est GFR (Non-Af Amer) (>60) BUN/Creatinine Ratio (8-20) Glucose (70-100) mg/dL Lactic Acid (0.5-2.0) mmol/L Calcium (8.6-10.3) mg/dL Magnesium (1.9-2.7) mg/dL Total Bilirubin (0.2-1.0) mg/dL AST (13-39) U/L ALT (7-52) U/L Alkaline Phosphatase (34-104) U/L Ammonia (16-53) mcmol/L Total Creatine Kinase (10-223) U/L CK-MB (CK-2) (0.6-6.3) ng/mL Troponin I (<0.04) ng/mL C-Reactive Protein (< 5.00) mg/L B-Natriuretic Peptide ( - 100) pg/mL Total Protein (6.4-8.9) g/dL Albumin (3.2-5.2) g/dL Globulin (2-4) g/dL Albumin/Globulin Ratio (1-3) Lipase (11.0-82.0) U/L TSH (0.34-5.60) mcIU/mL Urine Color Yellow Urine Appearance Clear Urine pH 6.0 (5-9) Ur Specific [place] 1.010 (1.010-1.030) Urine Protein 2+(100 mg/dl) A (Negative) Urine Ketones Negative (Negative) Urine Blood Negative (Negative) Urine Nitrate Negative (Negative) Urine Bilirubin Negative (Negative) Urine Urobilinogen Negative (Negative) Ur Leukocyte Esterase Negative (Negative) Urine WBC (Auto) Trace(0-5/hpf) (Absent) Urine RBC (Auto) Trace(0-2/hpf) (Absent) Ur Squamous Epith Cells Present A (Absent) Urine Bacteria Absent (Absent) Urine Glucose Negative (Negative) Urine Ascorbic Acid * A (Negative) Blood Type B Positive Antibody Screen Negative 03/10/18 03/10/18 03/10/18 Range/Units 12:55 12:55 12:55 WBC 7.4 (3.5-10.8) 10^3/ul RBC 3.71 L (4.0-5.4) 10^6/ul Hgb 10.8 L (14.0-18.0) g/dl Hct 32 L (42-52) % MCV 85 (80-94) fL MCH 29 (27-31) pg MCHC 34 (31-36) g/dl RDW 14 (10.5-15) % Plt Count 173 (150-450) 10^3/ul MPV 9.4 (7.4-10.4) um3 Neut % (Auto) 71.8 (38-83) % Lymph % (Auto) 18.3 L (25-47) % Fallon % (Auto) 6.8 (0-7) % Eos % (Auto) 2.6 (0-6) % Baso % (Auto) 0.5 (0-2) % Absolute Neuts (auto) 5.3 (1.5-7.7) 10^3/ul Absolute Lymphs (auto) 1.4 (1.0-4.8) 10^3/ul Absolute Monos (auto) 0.5 (0-0.8) 10^3/ul Absolute Eos (auto) 0.2 (0-0.6) 10^3/ul Absolute Basos (auto) 0 (0-0.2) 10^3/ul Absolute Nucleated RBC 0 10^3/ul Nucleated RBC % 0 INR (Anticoag Therapy) (0.77-1.02) APTT (26.0-36.3) seconds Sodium 132 L (139-145) mmol/L Potassium 5.9 H (3.5-5.0) mmol/L Chloride 103 (101-111) mmol/L Carbon Dioxide 22 (22-32) mmol/L Anion Gap 7 (2-11) mmol/L BUN 65 H (6-24) mg/dL Creatinine 4.42 H (0.67-1.17) mg/dL Est GFR ( Amer) 17.4 (>60) Est GFR (Non-Af Amer) 13.5 (>60) BUN/Creatinine Ratio 14.7 (8-20) Glucose 122 H (70-100) mg/dL Lactic Acid (0.5-2.0) mmol/L Calcium 9.1 (8.6-10.3) mg/dL Magnesium 2.7 (1.9-2.7) mg/dL Total Bilirubin 0.60 (0.2-1.0) mg/dL AST 18 (13-39) U/L ALT 32 (7-52) U/L Alkaline Phosphatase 74 (34-104) U/L Ammonia 37 (16-53) mcmol/L Total Creatine Kinase 54 (10-223) U/L CK-MB (CK-2) 2.3 (0.6-6.3) ng/mL Troponin I 0.02 (<0.04) ng/mL C-Reactive Protein 2.00 (< 5.00) mg/L B-Natriuretic Peptide 878 H ( - 100) pg/mL Total Protein 6.6 (6.4-8.9) g/dL Albumin 3.9 (3.2-5.2) g/dL Globulin 2.7 (2-4) g/dL Albumin/Globulin Ratio 1.4 (1-3) Lipase 75 (11.0-82.0) U/L TSH 3.24 (0.34-5.60) mcIU/mL Urine Color Urine Appearance Urine pH (5-9) Ur Specific [place] (1.010-1.030) Urine Protein (Negative) Urine Ketones (Negative) Urine Blood (Negative) Urine Nitrate (Negative) Urine Bilirubin (Negative) Urine Urobilinogen (Negative) Ur Leukocyte Esterase (Negative) Urine WBC (Auto) (Absent) Urine RBC (Auto) (Absent) Ur Squamous Epith Cells (Absent) Urine Bacteria (Absent) Urine Glucose (Negative) Urine Ascorbic Acid (Negative) Blood Type Antibody Screen 03/10/18 Range/Units 12:55 WBC (3.5-10.8) 10^3/ul RBC (4.0-5.4) 10^6/ul Hgb (14.0-18.0) g/dl Hct (42-52) % MCV (80-94) fL MCH (27-31) pg MCHC (31-36) g/dl RDW (10.5-15) % Plt Count (150-450) 10^3/ul MPV (7.4-10.4) um3 Neut % (Auto) (38-83) % Lymph % (Auto) (25-47) % Fallon % (Auto) (0-7) % Eos % (Auto) (0-6) % Baso % (Auto) (0-2) % Absolute Neuts (auto) (1.5-7.7) 10^3/ul Absolute Lymphs (auto) (1.0-4.8) 10^3/ul Absolute Monos (auto) (0-0.8) 10^3/ul Absolute Eos (auto) (0-0.6) 10^3/ul Absolute Basos (auto) (0-0.2) 10^3/ul Absolute Nucleated RBC 10^3/ul Nucleated RBC % INR (Anticoag Therapy) (0.77-1.02) APTT (26.0-36.3) seconds Sodium (139-145) mmol/L Potassium (3.5-5.0) mmol/L Chloride (101-111) mmol/L Carbon Dioxide (22-32) mmol/L Anion Gap (2-11) mmol/L BUN (6-24) mg/dL Creatinine (0.67-1.17) mg/dL Est GFR ( Amer) (>60) Est GFR (Non-Af Amer) (>60) BUN/Creatinine Ratio (8-20) Glucose (70-100) mg/dL Lactic Acid 0.4 L (0.5-2.0) mmol/L Calcium (8.6-10.3) mg/dL Magnesium (1.9-2.7) mg/dL Total Bilirubin (0.2-1.0) mg/dL AST (13-39) U/L ALT (7-52) U/L Alkaline Phosphatase (34-104) U/L Ammonia (16-53) mcmol/L Total Creatine Kinase (10-223) U/L CK-MB (CK-2) (0.6-6.3) ng/mL Troponin I (<0.04) ng/mL C-Reactive Protein (< 5.00) mg/L B-Natriuretic Peptide ( - 100) pg/mL Total Protein (6.4-8.9) g/dL Albumin (3.2-5.2) g/dL Globulin (2-4) g/dL Albumin/Globulin Ratio (1-3) Lipase (11.0-82.0) U/L TSH (0.34-5.60) mcIU/mL Urine Color Urine Appearance Urine pH (5-9) Ur Specific [place] (1.010-1.030) Urine Protein (Negative) Urine Ketones (Negative) Urine Blood (Negative) Urine Nitrate (Negative) Urine Bilirubin (Negative) Urine Urobilinogen (Negative) Ur Leukocyte Esterase (Negative) Urine WBC (Auto) (Absent) Urine RBC (Auto) (Absent) Ur Squamous Epith Cells (Absent) Urine Bacteria (Absent) Urine Glucose (Negative) Urine Ascorbic Acid (Negative) Blood Type Antibody Screen Microbiology and Other Data: Microbiology 03/11/18 01:00 Stool Gross Appearance - Final Stool C. difficile DNA Amplification - Final 027 Presumptive NEGATIVE Toxigenic C.diff NEGATIVE 03/11/18 01:00 Stool Gross Appearance - Final Stool 03/10/18 15:50 Nasal Screen MRSA (PCR)(ANA) - Final Nasal Mrsa Not Detected Assess/Plan/Problems-Billing Assessment: 63 yo M h/o CVA/recurrent TIAs, CAD PCI 2013, DM2, CKD, potential seizure disorder p/w weakness and reported melena found with bradycardia and acute on chronic renal failure with stay complicated by hematuria - Patient Problems (1) Hematuria Comment: Suspect related to trauma from chauhan insertion. Presenting UA without blood and follow up with evidence of blood Urine color appears to be clearing. He is not retaining on serial bladder scans. I educated patient and that he may need to go home with the chauhan in place if blood does not clear. 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 (3) GIB (gastrointestinal bleeding) Comment: stool occult negative No e/o ongoing bleeding and H/H stable transitioned to PPI IV BID advanced diet to cardiac 03/12 Holding on EGD after discussion with GI Check H/H in AM (4) Acute kidney failure Comment: Multifactor Reports 1 week diarrhea RN CORONARY CARE UNIT NSAID use after skin biopsy Poor forward flow in setting of bradycardia c/w IV normal saline Holding lasix Check BMP 03/12 (5) Bradycardia Comment: Suspect in setting of beta kedar with AKF holding metoprolol bradycardia resolved (6) Diabetes Comment: Lispro SS (7) HTN (hypertension) Comment: hydralazine imdur holding metoprolol (nolvia), lisinopril (AKF), aldactone (AKF) May need another agent depending on pressures tomorrow (8) S/P coronary artery stent placement Comment: Hold ASA c/w plavix holding ACEi, beta kedar, and aldactone (9) Hyperkalemia Comment: kayexalate x 1 03/11 check again 03/12 holding aldactone (10) DVT prophylaxis Comment: SCDs in setting of hematuria
[2018-03-12] MEDS: Finasteride TAB* 5 MG PO SCH (17:49)
[2018-03-12] MEDS: Tamsulosin CAP* 0.4 MG PO SCH (17:49)
[2018-03-13 06:07] LABS: Hematocrit 27 % (42-52); Hemoglobin 9.7 g/dl (14.0-18.0); Mean Corpuscular HGB Conc 35 g/dl (31-36); Mean Corpuscular Hemoglobin 30 pg (27-31); Mean Corpuscular Volume 85 fL (80-94); Mean Platelet Volume 8.3 um3 (7.4-10.4); Platelet Count 148 10^3/ul (150-450); Red Blood Count 3.21 10^6/ul (4.0-5.4); Red Cell Distribution Width 14 % (10.5-15); White Blood Count 6.1 10^3/ul (3.5-10.8)
--- NOTE | 2018-03-13 08:02 | PN ---
Subjective Date of Service: 03/13/18 Interval History: No c/o. Patient relies on his to answer questions at times. Objective Active Medications: Amlodipine Besylate (Norvasc Tab*) 5 mg PO DAILY [facility], [facility] Last Admin: 03/12/18 08:50 Dose: 5 mg Buspirone HCl (Buspar Tab*) 10 mg PO BID [facility] Last Admin: 03/12/18 21:07 Dose: 10 mg Citalopram Hydrobromide (Celexa Tab*) 40 mg PO QAM [facility] Last Admin: 03/12/18 08:50 Dose: 40 mg Clopidogrel Bisulfate (Plavix Tab*) 75 mg PO QAM [facility] Last Admin: 03/12/18 08:50 Dose: 75 mg Dextrose (D50w Syringe 50 Ml*) 12.5 gm IV PUSH .FOR FS < 60 - SS PRN PRN Reason: FS < 60 Finasteride (Proscar Tab*) 5 mg PO QPM [facility] Last Admin: 03/12/18 17:49 Dose: 5 mg Hydralazine HCl (Apresoline Iv*) 10 mg IV SLOW PU Q2H PRN PRN Reason: Systolic Bp Greater Than:180 Last Admin: 03/10/18 18:36 Dose: 10 mg Hydralazine HCl (Apresoline Tab*) 100 mg PO Q8H [facility] Last Admin: 03/12/18 23:36 Dose: 100 mg Sodium Chloride (Ns 0.9% 1000 Ml*) 1,000 mls @ 100 mls/hr IV PER RATE [facility] Stop: 03/13/18 23:23 Last Admin: 03/12/18 22:08 Dose: 100 mls/hr Insulin Human Lispro (Humalog*) 0 units SUBCUT ACHS [facility] PRN Reason: Protocol Last Admin: 03/12/18 21:32 Dose: Not Given Isosorbide Mononitrate (Imdur Er Tab*) 120 mg PO BID [facility] Last Admin: 03/12/18 21:08 Dose: 120 mg Omeprazole (Prilosec Cap*) 40 mg PO QAM [facility] Ondansetron HCl (Zofran Inj*) 4 mg IV Q6H PRN PRN Reason: NAUSEA Tamsulosin HCl (Flomax Cap*) 0.4 mg PO QPM [facility] Last Admin: 03/12/18 17:49 Dose: 0.4 mg Vital Signs - 8 hr 03/13/18 03:21 Temperature 98.4 F Pulse Rate 80 Respiratory 16 Rate Blood Pressure 125/76 (mmHg) O2 Sat by Pulse 98 Oximetry Oxygen Devices in Use Now: None Appearance: Alert, partly up in bed. In good spirits. Looks comfortable. Eyes: No Scleral Icterus Respiratory: Symmetrical Chest Expansion and Respiratory Effort, Clear to Auscultation, Clear to Percussion Cardiovascular: NL Sounds; No Murmurs; No JVD, RRR, No Edema, - Extremities: No Edema, No Clubbing, Cyanosis, - Skin: No Rash or Ulcers, No Nodules or Sclerosis Neurological: Alert and Oriented x 3, NL Sensation - He seems uncertain about many answers, ? impaired memory. Result Diagrams: 03/13/18 05:56 03/13/18 05:56 Additional Lab and Data: Lab Results 03/10/18 03/10/18 03/10/18 Range/Units 12:52 12:55 12:55 WBC (3.5-10.8) 10^3/ul RBC (4.0-5.4) 10^6/ul Hgb (14.0-18.0) g/dl Hct (42-52) % MCV (80-94) fL MCH (27-31) pg MCHC (31-36) g/dl RDW (10.5-15) % Plt Count (150-450) 10^3/ul MPV (7.4-10.4) um3 Neut % (Auto) (38-83) % Lymph % (Auto) (25-47) % [place] % (Auto) (0-7) % Eos % (Auto) (0-6) % Baso % (Auto) (0-2) % Absolute Neuts (auto) (1.5-7.7) 10^3/ul Absolute Lymphs (auto) (1.0-4.8) 10^3/ul Absolute Monos (auto) (0-0.8) 10^3/ul Absolute Eos (auto) (0-0.6) 10^3/ul Absolute Basos (auto) (0-0.2) 10^3/ul Absolute Nucleated RBC 10^3/ul Nucleated RBC % INR (Anticoag Therapy) 0.86 (0.77-1.02) APTT 28.8 (26.0-36.3) seconds Sodium (139-145) mmol/L Potassium (3.5-5.0) mmol/L Chloride (101-111) mmol/L Carbon Dioxide (22-32) mmol/L Anion Gap (2-11) mmol/L BUN (6-24) mg/dL Creatinine (0.67-1.17) mg/dL Est GFR ( Amer) (>60) Est GFR (Non-Af Amer) (>60) BUN/Creatinine Ratio (8-20) Glucose (70-100) mg/dL Lactic Acid (0.5-2.0) mmol/L Calcium (8.6-10.3) mg/dL Magnesium (1.9-2.7) mg/dL Total Bilirubin (0.2-1.0) mg/dL AST (13-39) U/L ALT (7-52) U/L Alkaline Phosphatase (34-104) U/L Ammonia (16-53) mcmol/L Total Creatine Kinase (10-223) U/L CK-MB (CK-2) (0.6-6.3) ng/mL Troponin I (<0.04) ng/mL C-Reactive Protein (< 5.00) mg/L B-Natriuretic Peptide ( - 100) pg/mL Total Protein (6.4-8.9) g/dL Albumin (3.2-5.2) g/dL Globulin (2-4) g/dL Albumin/Globulin Ratio (1-3) Lipase (11.0-82.0) U/L TSH (0.34-5.60) mcIU/mL Urine Color Yellow Urine Appearance Clear Urine pH 6.0 (5-9) Ur Specific [place] 1.010 (1.010-1.030) Urine Protein 2+(100 mg/dl) A (Negative) Urine Ketones Negative (Negative) Urine Blood Negative (Negative) Urine Nitrate Negative (Negative) Urine Bilirubin Negative (Negative) Urine Urobilinogen Negative (Negative) Ur Leukocyte Esterase Negative (Negative) Urine WBC (Auto) Trace(0-5/hpf) (Absent) Urine RBC (Auto) Trace(0-2/hpf) (Absent) Ur Squamous Epith Cells Present A (Absent) Urine Bacteria Absent (Absent) Urine Glucose Negative (Negative) Urine Ascorbic Acid * A (Negative) Blood Type B Positive Antibody Screen Negative 03/10/18 03/10/18 03/10/18 Range/Units 12:55 12:55 12:55 WBC 7.4 (3.5-10.8) 10^3/ul RBC 3.71 L (4.0-5.4) 10^6/ul Hgb 10.8 L (14.0-18.0) g/dl Hct 32 L (42-52) % MCV 85 (80-94) fL MCH 29 (27-31) pg MCHC 34 (31-36) g/dl RDW 14 (10.5-15) % Plt Count 173 (150-450) 10^3/ul MPV 9.4 (7.4-10.4) um3 Neut % (Auto) 71.8 (38-83) % Lymph % (Auto) 18.3 L (25-47) % Jewell % (Auto) 6.8 (0-7) % Eos % (Auto) 2.6 (0-6) % Baso % (Auto) 0.5 (0-2) % Absolute Neuts (auto) 5.3 (1.5-7.7) 10^3/ul Absolute Lymphs (auto) 1.4 (1.0-4.8) 10^3/ul Absolute Monos (auto) 0.5 (0-0.8) 10^3/ul Absolute Eos (auto) 0.2 (0-0.6) 10^3/ul Absolute Basos (auto) 0 (0-0.2) 10^3/ul Absolute Nucleated RBC 0 10^3/ul Nucleated RBC % 0 INR (Anticoag Therapy) (0.77-1.02) APTT (26.0-36.3) seconds Sodium 132 L (139-145) mmol/L Potassium 5.9 H (3.5-5.0) mmol/L Chloride 103 (101-111) mmol/L Carbon Dioxide 22 (22-32) mmol/L Anion Gap 7 (2-11) mmol/L BUN 65 H (6-24) mg/dL Creatinine 4.42 H (0.67-1.17) mg/dL Est GFR ( Amer) 17.4 (>60) Est GFR (Non-Af Amer) 13.5 (>60) BUN/Creatinine Ratio 14.7 (8-20) Glucose 122 H (70-100) mg/dL Lactic Acid (0.5-2.0) mmol/L Calcium 9.1 (8.6-10.3) mg/dL Magnesium 2.7 (1.9-2.7) mg/dL Total Bilirubin 0.60 (0.2-1.0) mg/dL AST 18 (13-39) U/L ALT 32 (7-52) U/L Alkaline Phosphatase 74 (34-104) U/L Ammonia 37 (16-53) mcmol/L Total Creatine Kinase 54 (10-223) U/L CK-MB (CK-2) 2.3 (0.6-6.3) ng/mL Troponin I 0.02 (<0.04) ng/mL C-Reactive Protein 2.00 (< 5.00) mg/L B-Natriuretic Peptide 878 H ( - 100) pg/mL Total Protein 6.6 (6.4-8.9) g/dL Albumin 3.9 (3.2-5.2) g/dL Globulin 2.7 (2-4) g/dL Albumin/Globulin Ratio 1.4 (1-3) Lipase 75 (11.0-82.0) U/L TSH 3.24 (0.34-5.60) mcIU/mL Urine Color Urine Appearance Urine pH (5-9) Ur Specific [place] (1.010-1.030) Urine Protein (Negative) Urine Ketones (Negative) Urine Blood (Negative) Urine Nitrate (Negative) Urine Bilirubin (Negative) Urine Urobilinogen (Negative) Ur Leukocyte Esterase (Negative) Urine WBC (Auto) (Absent) Urine RBC (Auto) (Absent) Ur Squamous Epith Cells (Absent) Urine Bacteria (Absent) Urine Glucose (Negative) Urine Ascorbic Acid (Negative) Blood Type Antibody Screen 03/10/18 Range/Units 12:55 WBC (3.5-10.8) 10^3/ul RBC (4.0-5.4) 10^6/ul Hgb (14.0-18.0) g/dl Hct (42-52) % MCV (80-94) fL MCH (27-31) pg MCHC (31-36) g/dl RDW (10.5-15) % Plt Count (150-450) 10^3/ul MPV (7.4-10.4) um3 Neut % (Auto) (38-83) % Lymph % (Auto) (25-47) % Jewell % (Auto) (0-7) % Eos % (Auto) (0-6) % Baso % (Auto) (0-2) % Absolute Neuts (auto) (1.5-7.7) 10^3/ul Absolute Lymphs (auto) (1.0-4.8) 10^3/ul Absolute Monos (auto) (0-0.8) 10^3/ul Absolute Eos (auto) (0-0.6) 10^3/ul Absolute Basos (auto) (0-0.2) 10^3/ul Absolute Nucleated RBC 10^3/ul Nucleated RBC % INR (Anticoag Therapy) (0.77-1.02) APTT (26.0-36.3) seconds Sodium (139-145) mmol/L Potassium (3.5-5.0) mmol/L Chloride (101-111) mmol/L Carbon Dioxide (22-32) mmol/L Anion Gap (2-11) mmol/L BUN (6-24) mg/dL Creatinine (0.67-1.17) mg/dL Est GFR ( Amer) (>60) Est GFR (Non-Af Amer) (>60) BUN/Creatinine Ratio (8-20) Glucose (70-100) mg/dL Lactic Acid 0.4 L (0.5-2.0) mmol/L Calcium (8.6-10.3) mg/dL Magnesium (1.9-2.7) mg/dL Total Bilirubin (0.2-1.0) mg/dL AST (13-39) U/L ALT (7-52) U/L Alkaline Phosphatase (34-104) U/L Ammonia (16-53) mcmol/L Total Creatine Kinase (10-223) U/L CK-MB (CK-2) (0.6-6.3) ng/mL Troponin I (<0.04) ng/mL C-Reactive Protein (< 5.00) mg/L B-Natriuretic Peptide ( - 100) pg/mL Total Protein (6.4-8.9) g/dL Albumin (3.2-5.2) g/dL Globulin (2-4) g/dL Albumin/Globulin Ratio (1-3) Lipase (11.0-82.0) U/L TSH (0.34-5.60) mcIU/mL Urine Color Urine Appearance Urine pH (5-9) Ur Specific [place] (1.010-1.030) Urine Protein (Negative) Urine Ketones (Negative) Urine Blood (Negative) Urine Nitrate (Negative) Urine Bilirubin (Negative) Urine Urobilinogen (Negative) Ur Leukocyte Esterase (Negative) Urine WBC (Auto) (Absent) Urine RBC (Auto) (Absent) Ur Squamous Epith Cells (Absent) Urine Bacteria (Absent) Urine Glucose (Negative) Urine Ascorbic Acid (Negative) Blood Type Antibody Screen Microbiology and Other Data: Microbiology 03/11/18 01:00 Stool Gross Appearance - Final Stool C. difficile DNA Amplification - Final 027 Presumptive NEGATIVE Toxigenic C.diff NEGATIVE 03/11/18 01:00 Stool Gross Appearance - Final Stool 03/10/18 15:50 Nasal Screen MRSA (PCR)(ANA) - Final Nasal Mrsa Not Detected Assess/Plan/Problems-Billing Assessment: 63 yo M h/o CVA/recurrent TIAs, CAD PCI 2013, DM2, CKD, potential seizure disorder p/w weakness and reported melena found with bradycardia and acute on chronic renal failure with stay complicated by hematuria - Patient Problems (1) Acute kidney failure Current Visit: Yes Status: Acute Onset Date: 02/23/16 Comment: Due to [place] and other factors. 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 Hold metformin (3) Bradycardia Current Visit: Yes Status: Acute Code(s): R00.1 - BRADYCARDIA, UNSPECIFIED SNOMED Code(s): 92330316 Comment: Resolved, suspect in setting of beta kedar with AKF. Re-start metoprolol at lower than home dose. (4) Urinary retention Current Visit: Yes Status: Acute Code(s): R33.9 - RETENTION OF URINE, UNSPECIFIED SNOMED Code(s): 272302015 Comment: Noted on placement of chauhan (1500 cc retained) Likely contributed to AKF started on flomax and finasteride Fup within [address] Fleming. (5) CAD (coronary artery disease) Current Visit: No Status: Chronic Code(s): I25.10 - ATHSCL HEART DISEASE OF [place] CORONARY ARTERY W/O ANG PCTRS SNOMED Code(s): 69403600 Comment: Hold ASA and clopidogrel. (6) Hematuria Current Visit: Yes Status: Acute Code(s): R31.9 - HEMATURIA, UNSPECIFIED SNOMED Code(s): 62772463 Comment: Suspect related to trauma from chauhan insertion. Presenting UA without blood and follow up with evidence of blood Urine color clear AM 03/13. He is not retaining on serial bladder scans. I educated patient and that he may need to go home with the chauhan in place if blood does not clear. Check CBC 03/14 to follow H/H
[2018-03-13] MEDS: Insulin LISPRO* 1 UNITS UNIT SUBCUT SCH ×4 (08:33→21:03)
[2018-03-13] MEDS: Clopidogrel TAB* 75 MG PO SCH (08:35)
[2018-03-13] MEDS: Citalopram TAB* 40 MG PO SCH (08:35)
[2018-03-13] MEDS: Isosorbide Mononitrate ER TAB* 60 MG PO SCH ×2 (08:35→21:02)
[2018-03-13] MEDS: Metoprolol Tartrate TAB* 25 MG PO SCH ×2 (08:35→21:02)
[2018-03-13] MEDS: amLODIPine TAB* 5 MG PO SCH (08:35)
[2018-03-13] MEDS: Pantoprazole TAB (NF) 40 MG TAB PO SCH (08:35)
[2018-03-13] MEDS: hydrALAZINE TAB* 100 MG ** ONE HUNDRED PO SCH ×2 (08:35→15:48)
[2018-03-13] MEDS: busPIRone TAB* 10 MG PO SCH ×2 (08:35→21:03)
[2018-03-13] MEDS ORDERED: Omeprazole CAP* 20 MG PO SCH (09:00)
[2018-03-13] MEDS ORDERED: Aspirin 81 mg CHEW TAB* 81 MG TAB.CHEW PO SCH (09:00)
[2018-03-13] MEDS: Tamsulosin CAP* 0.4 MG PO SCH (18:16)
[2018-03-13] MEDS: Finasteride TAB* 5 MG PO SCH (18:16)
[2018-03-14] MEDS: hydrALAZINE TAB* 100 MG ** ONE HUNDRED PO SCH ×2 (00:15→11:45)
[2018-03-14 06:13] LABS: ABS Basophils 0 10^3/ul (0-0.2); ABS Eosinophils 0.3 10^3/ul (0-0.6); ABS Lymphocytes 1.1 10^3/ul (1.0-4.8); ABS Monocytes 0.5 10^3/ul (0-0.8); ABS Neutrophils 4.9 10^3/ul (1.5-7.7); ABS Nucleated RBC 0 10^3/ul; Eosinophil % 4.6 % (0-6); Hematocrit 30 % (42-52); Hemoglobin 10.4 g/dl (14.0-18.0); Lymphocyte % 16.4 % (25-47); Mean Corpuscular HGB Conc 34 g/dl (31-36); Mean Corpuscular Hemoglobin 29 pg (27-31); Mean Corpuscular Volume 85 fL (80-94); Mean Platelet Volume 8.7 um3 (7.4-10.4); Nucleated Red Blood Cells % 0; Platelet Count 162 10^3/ul (150-450); Red Blood Count 3.57 10^6/ul (4.0-5.4); Red Cell Distribution Width 14 % (10.5-15); White Blood Count 6.9 10^3/ul (3.5-10.8)
--- NOTE | 2018-03-14 09:30 | PN ---
Progress Note - Progress Note Date of Service: 03/14/18 Note: Time spent on discharge 55 minutes.
[2018-03-14] MEDS ORDERED: Aspirin EC TAB* 325 MG PO SCH (10:00)
--- NOTE | 2018-03-14 11:28 | DS ---
CC: Dr. Caban; Dr. Hannon; Dr. Bauman; Dr. Fleming DISCHARGE SUMMARY: DATE OF ADMISSION: DATE OF DISCHARGE: 03/14/18 HISTORY: This 63-year-old man presented with weakness. There was a history of melena; however, the patient is on iron therapy and really did not think his stool color had changed. He had been taking some ibuprofen for a few days and he recently had his aspirin increased in dosage. The patient was found to have acute on chronic renal failure. He also had bladder outlet obstruction . He had 1500 mL of residual urine in his bladder. He is going home with Joe catheter. He was st arted on tamsulosin and finasteride. Because of a possible GI bleeding, he was given pantoprazole. He had been on omeprazole before and he will continue on this, he was advised not to use ibuprofen. He will continue on aspirin and clopidogrel due to his cardiac disease. The patient did not require any transfusions. His creatinine steadily improved in the hospital. It fell from 4.42 to 3.15 on the day of discharge. He will follow up with Dr. Fleming within a week for p ossible voiding trial, he will follow up with his academic hospitalist in [place], he will follow up with Prakash Hannon and Dr. Caban. DISCHARGE DIAGNOSES: 1. Acute on chronic renal failure, improved. 2. Diabetes. 3. Bradycardia. 4. Urinary retention. 5. Coronary artery disease. 6. Hematuria. DISCHARGE MEDICATIONS: 1. Finasteride 5 mg h.s. 2. Clopidogrel 75 mg daily. 3. Tamsulosin 0.4 mg daily. 4. Nitroglycerin 0.4 mg sublingual every 5 minutes p.r.n. 5. Buspirone 10 mg b.i.d. 6. Amlodipine 10 mg daily. 7. Lisinopril 5 mg daily. 8. Isosorbide mononitrate 240 mg daily. 9. Metoprolol tartrate 25 mg b.i.d. 10. Metformin 500 mg b.i.d. 11. Amlodipine 5 mg h.s. 12. Vitamin D 1 tablet daily. 13. Magnesium oxide 400 mg daily. 14. Fish oil 1 capsule t.i.d. 15. Centrum tablet daily. 16. Vitamin D3 2000 units daily. 17. Aspirin as per Dr. Hannon. 18. Omeprazole 40 mg daily. 19. Citalopram 40 mg daily. 20. Rosuvastatin 20 mg daily. 21. Spironolactone 25 mg b.i.d. [id number]/[facility] #: [id number]
[2018-03-14] MEDS: Insulin LISPRO* 1 UNITS UNIT SUBCUT SCH (11:40)
[2018-03-14] MEDS: Isosorbide Mononitrate ER TAB* 60 MG PO SCH (11:45)
[2018-03-14] MEDS: Clopidogrel TAB* 75 MG PO SCH (11:46)
[2018-03-14] MEDS: Pantoprazole TAB (NF) 40 MG TAB PO SCH (11:46)
[2018-03-14] MEDS: amLODIPine TAB* 5 MG PO SCH (11:46)
[2018-03-14] MEDS: Metoprolol Tartrate TAB* 25 MG PO SCH (11:46)
[2018-03-14] MEDS: busPIRone TAB* 10 MG PO SCH (11:46)
[2018-03-14] MEDS: Citalopram TAB* 40 MG PO SCH (11:46)
[2018-03-14 13:08] VITALS: BP 173/71
== END 2018-03-14 13:37 | disposition home or self-care (01) | DRG 309 ==
LOC: ED 12:21 → ICU 14:36 → MEDTELE 03-11 14:18
PROVIDERS: ADMIT Internal Medicine; ATTEND Internal Medicine
DX: R00.1 Bradycardia, unspecified (principal); N17.9 Acute kidney failure, unspecified; K92.1 Melena; T83.83XA Hemorrhage due to genitourinary prosthetic devices, implants and grafts, initial encounter; N18.4 Chronic kidney disease, stage 4 (severe); I13.10 Hypertensive heart and chronic kidney disease without heart failure, with stage 1 through stage 4 chronic kidney disease, or unspecified chronic kidney disease; E87.5 Hyperkalemia; D64.9 Anemia, unspecified; T44.7X5A Adverse effect of beta-adrenoreceptor antagonists, initial encounter; E11.22 Type 2 diabetes mellitus with diabetic chronic kidney disease; E11.51 Type 2 diabetes mellitus with diabetic peripheral angiopathy without gangrene; E78.5 Hyperlipidemia, unspecified; G47.33 Obstructive sleep apnea (adult) (pediatric); N32.0 Bladder-neck obstruction; I25.10 Atherosclerotic heart disease of native coronary artery without angina pectoris; N40.1 Benign prostatic hyperplasia with lower urinary tract symptoms; R33.8 Other retention of urine; E86.0 Dehydration; K21.9 Gastro-esophageal reflux disease without esophagitis; X58.XXXA Exposure to other specified factors, initial encounter; Y92.009 Unspecified place in unspecified non-institutional (private) residence as the place of occurrence of the external cause; Z95.5 Presence of coronary angioplasty implant and graft; Z86.73 Personal history of transient ischemic attack (TIA), and cerebral infarction without residual deficits; Z88.2 Allergy status to sulfonamides; Z88.8 Allergy status to other drugs, medicaments and biological substances; Z95.1 Presence of aortocoronary bypass graft; Z83.3 Family history of diabetes mellitus; Z82.49 Family history of ischemic heart disease and other diseases of the circulatory system; Z79.84 Long term (current) use of oral hypoglycemic drugs; Z79.1 Long term (current) use of non-steroidal anti-inflammatories (NSAID); Z79.02 Long term (current) use of antithrombotics/antiplatelets; Z79.82 Long term (current) use of aspirin; Z79.899 Other long term (current) drug therapy
CPT/HCPCS: 36415; 71045; 80048; 80053; 81003; 81015; 82140; 82270; 82272; 82550; 82553; 83605; 83690; 83735; 83880; 84443; 84484; 85014; 85018; 85025; 85027; 85610; 85730; 86140; 86850; 86900; 86901; 87045; 87046; 87077; 87086; 87186; 87328; 87329; 87493; 87641; 87899; 93005; 99285; A9270-GY; J0360; J0461; J0610; J2250

== ENCOUNTER 2018-04-14 22:32 | Observation (INO) | payer MEDICARE ==
--- OUTSIDE RECORDS SUMMARY | 2018-04-14 22:44 | XMS REPORT ---
:1955 External Reference #:[id number] Author Organization [facility] Address [address] [address] Phone [phone] Care Team Providers Name Role Phone Benjy Caban MD Primary Care Physician Unavailable Payers Type Date Identification Numbers Payment Provider Subscriber Health Maintenance Policy Number: [employer]hc Medicare Scott Feliz [facility] ([facility] [place], [place]) [id number] Solutions Group Number: [id number] [address] [address] PayID: [id number] [place] [address] Medigap Part B Effective: Policy Number: [employer] [place] J 01/23/2014 [id number] [facility] PayID: [id number] [address] [place] [address] Problems Date Description Provider Status Onset: 08/25/2014 Chronic ischemic heart disease Aj Hannon M.D., [facility], Active [facility] Onset: 08/25/2014 Benign essential hypertension Aj Hannon M.D., [facility], Active [facility] Onset: 08/25/2014 Hyperlipidemia Aj Hannon M.D., [facility], Active [facility] Onset: 03/30/2015 Essential hypertension Aj Hannon M.D., [facility], Active [facility] Onset: 12/02/2015 Obstructive sleep apnea syndrome Kelly Guzman DNP, RN, Active [employer]- Note: hypopneas, elevated RDI Onset: 06/01/2016 Hypersomnia Kelly Guzman DNP, RN, Active [employer]BC Onset: 04/02/2018 Atherosclerosis of CABG, unsp, w Aj Hannon M.D., [place], Active oth angina pectoris [facility] Onset: 04/02/2018 Preoperative cardiovascular Aj Hannon M.D., [facility], Active examination [facility] Onset: 04/10/2017 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., [place], Active coronary artery w/o ang pctrs [facility] Family History Date Family Member(s) Problem(s) Comments General non contributory Father Killed in accident Mother Dementia Siblings 6 Siblings 2 brothers w/heart issues Social History Type Date Description Comments Marital Status Lives With 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, [employer]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 Cigarette Use Never Smoked Cigarettes ETOH Use Occasionally consumes alcohol Smoking Patient has never smoked Recreational Drug Use Denies Drug Use Daily Caffeine Does Not Consume Caffeine Exercise Type/Frequency Exercises rarely Allergies, Adverse Reactions, Alerts Date Description Reaction Status Severity Comments 02/16/2014 Bactrim Rash active Medications Medication Date Status Form Strength Qnty SIG Indications Ordering Provider Spironolactone 04/02/ Active Tablets 25mg 90tab 1 by mouth Aj 2018 s twice daily Sebastian Hannon, [facility], [facility] Furosemide 03/31/ Active Tablets 40mg 1 by mouth Aj 2018 every Stefek, day([facility] MJennifer, ed by Dr. LUO, [facility]) [facility] Metoprolol 03/31/ Active Tablets ER 25mg 1 by mouth Aj Succinate ER 2018 24HR twice daily [facility] [place], (changed in M.D., hospital) [facility], [facility] Isosorbide 10/31/ Active Tablets ER 120mg 60tab 1 by mouth Nora Mononitrate ER 2015 24HR s every day Sebastian Verde Amlodipine 10/10/ Active Tablets 10mg 135ta 1 by mouth I25.9 Aj Besylate 2016 bs every Stefek, morning and M.D., 1/2 tab [facility], every [facility] evening Crestor 10/10/ Active Tablets 20mg 30tab 1 by mouth Aj 2016 s every day Sebastian Hannon, [place], [facility] Aspirin 05/31/ Active Tablets DR 325mg 1 by mouth Unknown 2015 daily Cpap 05/31/ Active at night as Unknown 2015 instructed Lisinopril 05/03/ Active Tablets 5mg 90tab 1 by mouth Aj 2015 s every day Sebastian Hannon, [facility], [facility] Nitrostat 09/09/ Active Tablets 0.4mg 30tab 1 tab Aj 2013 Sub s sublingual Stefek, as needed M.D., every 5 [facility], mins x 3 [facility] Finasteride / Active Tablets 5mg 1 tab po Unknown 0000 daily PM Metformin HCL / Active Tablets 1000mg 1/2 tab by Unknown 0000 mouth twice a day Vitamin B / Active Tablets 1 by mouth Unknown Complex 0000 every day Am Centrum Silver / Active Tablets 1 by mouth Unknown 0000 every day Am Vitamin C / Active Tablets 1000mg 1 by mouth Unknown 0000 every day Am Clopidogrel / Active Tablets 75mg 1 tablet po Unknown Bisulfate 0000 daily Am Tamsulosin HCL / Active Capsules 0.4mg 1 by mouth Unknown 0000 every day(forgets sometimes) Oxygen / Active Misc 2 l nc at Unknown 0000 bedtime Buspirone HCL / Active Tablets 10mg 1 tablet po Unknown 0000 twice daily Jackson 3 / Active one cap Unknown 0000 three times daily Pantoprazole / Active Tablets DR 40mg 1 by mouth Unknown Sodium 0000 every day Iron / Active Tablets 325mg 1 by mouth Unknown High-Potency 0000 once daily Sertraline HCL / Active Tablets 50mg 1 by mouth Unknown 0000 every day Vitamin D3 / Active Tablets 2000Unit 1 by mouth Unknown 0000 every day Magnesium Oxide / Active Tablets 400mg 1 by mouth Unknown 0000 every day (pt taking every other day) Norvasc 12/01/ Hx Tablets 5mg 1 by mouth I25.9 Unknown 2016 - every day 2015 Isosorbide 11/30/ Hx Tablets ER 60mg 150ta 1 1/2 pills Aj Mononitrate ER 2015 - 24HR bs by mouth Riddhi, 10/31/ every day M.D., 2015 [facility], [facility] Lisinopril 04/19/ Hx Tablets 10mg 30tab 1 by mouth Aj 2014 - s every day Johnfewillian, 05/03/ M.DBrandon, 2015 [facility], [facility] Isosorbide 04/15/ Hx Tablets ER 60mg 90tab 1 by mouth Aj Mononitrate ER 2015 - 24HR s every day Stefek, M.D., 2015 [facility], [facility] Lisinopril 04/15/ Hx Tablets 20mg 90tab 1 by mouth Aj 2014 - s every day fek, M.D., 2014 [facility], [facility] Topamax 03/09/ Hx Tablets 25mg 1 by mouth Unknown 2014 - every day (takes 2017 rarely) Isosorbide 10/07/ Hx Tablets ER 120mg 90tab 1/2 tab by Aj Mononitrate ER 2013 - 24HR s mouth every Stefek, M.D., 2014 [facility], [facility] Furosemide 09/10/ Hx Tablets 20mg 30tab 1/2 tab by Aj 2013 - s mouth every Stefek, morning M.D., 2017 [facility], [facility] Isosorbide 08/25/ Hx Tablets ER 30mg 90tab 1 by mouth Aj Mononitrate ER 2014 - 24HR s every day fek, M.D., 2013 [facility], [facility] Citalopram 00/00/ Hx Tablets 20mg Unknown Hydrobromide 0000 - 2013 Citalopram /00/ Hx Tablets 20mg 1 tab po Unknown Hydrobromide 0000 - daily Am 2017 Lovastatin 00/ Hx Tablets 20mg 1 tab po Unknown 0000 - daily 2013 Doxazosin 00/ Hx Tablets 4mg 1 tab po Unknown Mesylate 0000 - qpm 2014 Josemanuel 00/ Hx Tablets 10-40mg 1 tab po Unknown 0000 - daily 2013 Toprol XL / Hx Tablets ER 25mg 90tab 2 tabs Unknown 0000 - 24HR s daily 2013 Ecotrin Low /00/ Hx Tablets DR 81mg 1 by mouth Unknown Strength 0000 - every day 2015 Nexium /00/ Hx Capsules 40mg 90cap 1 by mouth Unknown 0000 - DR s every day 2013 Crestor 00/ Hx Tablets 10mg 30tab 1 by mouth Unknown 0000 - s every day 2013 Lisinopril 00/ Hx Tablets 40mg 90tab 1 by mouth Unknown 0000 - s every day 052014 Amlodipine 00/00/ Hx Tablets 10mg 90tab 1 by mouth Unknown Besylate 0000 - s bid 2014 Crestor 00/ Hx Tablets 10mg 1 by mouth Unknown 0000 - every day 2015 Isosorbide 00/ Hx Tablets ER 60mg 90tab 1 by mouth Unknown Mononitrate ER 0000 - 24HR s every day 2013 Metoprolol /00/ Hx Tablets ER 100mg 1 tablet po Unknown Succinate ER 0000 - 24HR daily 2014 Pantoprazole 00/ Hx Tablets DR 40mg 1 tablet po Unknown Sodium 0000 - daily Am 2015 Metoprolol 00/ Hx Tablets 100mg 180ta 1 by mouth Aj Tartrate 0000 - bs twice a day Riddhi 04/02/ Sebastian, 2018 FACC, [facility] Ventolin HFA / Hx Aerosol 108(90Bas 2 puffs by Unknown 0000 - e) mouth four /Act times a day 2017 as needed (does not use) Amlodipine 00/ Hx Tablets 10mg 1 by mouth Unknown Besylate 0000 - every day 2015 Trazodone HCL 00/ Hx Tablets 50mg 1 tablet at Unknown 0000 - bedtime(tri not to 2017 use) Omeprazole 00/ Hx Capsules 40mg 1 by mouth Unknown 0000 - DR every day 2017 Januvia /00/ Hx Tablets 50mg 1 by mouth Unknown 0000 - every day 2017 Immunizations CPT Code Status Date Vaccine Lot # [id number] Given 08/27/2016 Influenza Virus Vaccine, Quadrivalent, Split, Preservative Free [id number] Given 08/27/2016 Influenza Virus Vaccine, Quadrivalent, Split, Preservative Free Vital Signs Date Vital Result Comment 04/02/2018 Height 72 inches 6'0" Weight 243.00 lb w/shoes Heart Rate 62 /min BP Systolic Sitting 142 mmHg lue lg cuff BP Diastolic Sitting 70 mmHg lue lg cuff BP Systolic Standing 134 mmHg lue lg cuff BP Diastolic Standing 70 mmHg lue lg cuff Respiratory Rate 18 /min BMI (Body Mass Index) 33.0 kg/m2 Ejection Fraction 50-55% echo 02/02/15 04/10/2017 Height 72 inches 6'0" Weight 262.00 lb w/ shoes Heart Rate 60 /min BP Systolic Sitting 136 mmHg Rue, reg cuff BP Diastolic Sitting 90 mmHg Rue, reg cuff BP Systolic Standing 144 mmHg Rue BP Diastolic Standing 96 mmHg Rue Respiratory Rate 16 /min BMI (Body Mass Index) 35.5 kg/m2 Ejection Fraction 50-55% as of 01/2015 echo 11/16/2016 Height 72 inches 6'0" Weight 251.00 lb with shoes Heart Rate 52 /min BP Systolic Sitting 122 mmHg Lue large cuff BP Diastolic Sitting 76 mmHg Lue large cuff BP Systolic Standing 140 mmHg Lue large cuff BP Diastolic Standing 80 mmHg Lue large cuff Respiratory Rate 16 /min BMI (Body Mass Index) 34.0 kg/m2 10/29/2016 Height 72 inches 6'0" Heart Rate 60 /min BP Systolic Sitting 156 mmHg R arm , Large cuff BP Diastolic Sitting 90 mmHg R arm , Large cuff BP Systolic Standing 152 mmHg BP Diastolic Standing 90 mmHg Respiratory Rate 18 /min 10/10/2016 Height 72 inches 6'0" Weight 258.00 lb Heart Rate 60 /min 62 BP Systolic Sitting 160 mmHg right arm, large cuff BP Diastolic Sitting 96 mmHg right arm, large cuff BP Systolic Standing 148 mmHg right arm, large cuff BP Diastolic Standing 90 mmHg right arm, large cuff Respiratory Rate 20 /min BMI (Body Mass Index) 35.0 kg/m2 Ejection Fraction 50-55% 02/02/15 09/07/2016 Height 72 inches 6'0" Weight 240.00 lb Heart Rate 51 /min BP Systolic Sitting 136 mmHg BP Diastolic Sitting 82 mmHg Respiratory Rate 16 /min O2 % BldC Oximetry 98 % BMI (Body Mass Index) 32.5 kg/m2 06/04/2016 Height 72 inches 6'0" Weight 239.38 lb with shoes Heart Rate 40 /min BP Systolic Sitting 120 mmHg LA lg cuff BP Diastolic Sitting 76 mmHg LA lg cuff BP Systolic Standing 122 mmHg LA gl cuff BP Diastolic Standing 80 mmHg LA gl cuff Respiratory Rate 15 /min BMI (Body Mass Index) 32.5 kg/m2 Ejection Fraction 50-55% date 02/02/15 ECHO 06/01/2016 Height 72 inches 6'0" Weight 238.12 lb Heart Rate 63 /min BP Systolic Sitting 132 mmHg BP Diastolic Sitting 80 mmHg Respiratory Rate 18 /min O2 % BldC Oximetry 98 % BMI (Body Mass Index) 32.3 kg/m2 12/15/2015 Height 72 inches 6'0" Heart Rate 56 /min 58 BP Systolic Sitting 128 mmHg left arm, reg cuff BP Diastolic Sitting 82 mmHg left arm, reg cuff BP Systolic Standing 124 mmHg left arm, reg cuff BP Diastolic Standing 80 mmHg left arm, reg cuff 12/02/2015 Height 72 inches 6'0" Weight 230.00 lb Heart Rate 52 /min BP Systolic 132 mmHg BP Diastolic 86 mmHg Respiratory Rate 14 /min O2 % BldC Oximetry 97 % BMI (Body Mass Index) 31.2 kg/m2 11/30/2015 Height 72 inches 6'0" Weight 232.00 lb Heart Rate 56 /min 60 BP Systolic Sitting 150 mmHg left arm, reg cuff BP Diastolic Sitting 98 mmHg left arm, reg cuff BP Systolic Standing 150 mmHg left arm, reg cuff BP Diastolic Standing 98 mmHg left arm, reg cuff Respiratory Rate 16 /min BMI (Body Mass Index) 31.5 kg/m2 Ejection Fraction 50-55% 02/02/15 10/05/2015 Height 72 inches 6'0" Weight 225.00 lb Heart Rate 62 /min 62 BP Systolic Sitting 148 mmHg right arm, reg cuff BP Diastolic Sitting 88 mmHg right arm, reg cuff BP Systolic Standing 146 mmHg right arm, reg cuff BP Diastolic Standing 88 mmHg right arm, reg cuff Respiratory Rate 20 /min BMI (Body Mass Index) 30.5 kg/m2 Ejection Fraction 50-55% 02/02/15 07/08/2015 Height 72 inches 6'0" Weight 220.00 lb Heart Rate 67 /min BP Systolic Sitting 122 mmHg BP Diastolic Sitting 54 mmHg Respiratory Rate 20 /min O2 % BldC Oximetry 98 % BMI (Body Mass Index) 29.8 kg/m2 05/18/2015 Height 72 inches 6'0" Weight 218.00 lb Heart Rate 70 /min BP Systolic Sitting 110 mmHg Ra reg cuff BP Diastolic Sitting 60 mmHg Ra reg cuff BP Systolic Standing 104 mmHg Ra reg cuff BP Diastolic Standing 60 mmHg Ra reg cuff Respiratory Rate 17 /min BMI (Body Mass Index) 29.6 kg/m2 05/04/2015 Height 72 inches 6'0" Weight 218.00 lb Heart Rate 68 /min BP Systolic Sitting 120 mmHg BP Diastolic Sitting 62 mmHg Respiratory Rate 20 /min O2 % BldC Oximetry 97 % BMI (Body Mass Index) 29.6 kg/m2 04/26/2015 Heart Rate 66 /min 72 BP Systolic Sitting 114 mmHg left arm, large cuff BP Diastolic Sitting 74 mmHg left arm, large cuff BP Systolic Standing 110 mmHg left arm, large cuff BP Diastolic Standing 74 mmHg left arm, large cuff Respiratory Rate 16 /min 04/19/2015 Heart Rate 66 /min 74 BP Systolic Sitting 118 mmHg left arm, large cuff BP Diastolic Sitting 72 mmHg left arm, large cuff BP Systolic Standing 100 mmHg left arm, large cuff BP Diastolic Standing 68 mmHg left arm, large cuff Respiratory Rate 20 /min 04/14/2015 Heart Rate 64 /min 72 BP Systolic Sitting 112 mmHg left arm, large cuff BP Diastolic Sitting 70 mmHg left arm, large cuff BP Systolic Standing 110 mmHg left arm, large cuff BP Diastolic Standing 70 mmHg left arm, large cuff Respiratory Rate 16 /min 03/30/2015 Height 70 inches 5'10" Weight 215.00 lb Heart Rate 66 /min 72 BP Systolic Sitting 114 mmHg right arm, reg cuff BP Diastolic Sitting 80 mmHg right arm, reg cuff BP Systolic Standing 112 mmHg right arm, reg cuff BP Diastolic Standing 80 mmHg right arm, reg cuff Respiratory Rate 14 /min BMI (Body Mass Index) 30.8 kg/m2 Ejection Fraction 50-55% 02/02/15 03/10/2015 Height 70 inches 5'10" Weight 220.00 lb Heart Rate 64 /min BP Systolic Sitting 142 mmHg BP Diastolic Sitting 76 mmHg Respiratory Rate 20 /min Body Temperature 97.4 F O2 % BldC Oximetry 98 % BMI (Body Mass Index) 31.6 kg/m2 Neck Circumference in inches 16 11/02/2014 Height 71 inches 5'11" Weight 235.00 lb without shoes Heart Rate 76 /min BP Systolic Sitting 122 mmHg La reg cuff BP Diastolic Sitting 80 mmHg La reg cuff BP Systolic Standing 110 mmHg La reg cuff BP Diastolic Standing 80 mmHg La reg cuff Respiratory Rate 17 /min BMI (Body Mass Index) 32.8 kg/m2 10/13/2014 Heart Rate 68 /min 72 BP Systolic Sitting 150 mmHg left arm, large cuff BP Diastolic Sitting 98 mmHg left arm, large cuff BP Systolic Standing 146 mmHg left arm, large cuff BP Diastolic Standing 98 mmHg left arm, large cuff Respiratory Rate 16 /min 10/07/2014 Height 71.5 inches 5'11.50" Weight 246.00 lb Heart Rate 62 /min 64 BP Systolic Sitting 182 mmHg left arm, large cuff BP Diastolic Sitting 96 mmHg left arm, large cuff BP Systolic Standing 152 mmHg left arm, large cuff BP Diastolic Standing 94 mmHg left arm, large cuff Respiratory Rate 20 /min BMI (Body Mass Index) 33.8 kg/m2 09/15/2014 Height 71.5 inches 5'11.50" Weight 244.00 lb Heart Rate 68 /min 70 BP Systolic Sitting 158 mmHg right arm, reg cuff BP Diastolic Sitting 92 mmHg right arm, reg cuff BP Systolic Standing 152 mmHg right arm, reg cuff BP Diastolic Standing 92 mmHg right arm, reg cuff Respiratory Rate 16 /min BMI (Body Mass Index) 33.6 kg/m2 09/09/2014 Height 71.5 inches 5'11.50" Weight 247.00 lb Heart Rate 64 /min 66 BP Systolic Sitting 176 mmHg left arm, large cuff BP Diastolic Sitting 98 mmHg left arm, large cuff BP Systolic Standing 166 mmHg left arm, large cuff BP Diastolic Standing 98 mmHg left arm, large cuff Respiratory Rate 16 /min BMI (Body Mass Index) 34.0 kg/m2 08/25/2014 Height 71.5 inches 5'11.50" Weight 243.00 lb Heart Rate 66 /min 68 BP Systolic 146 mmHg right arm, large cuff BP Diastolic 88 mmHg right arm, large cuff BP Systolic Sitting 144 mmHg left arm, large cuff BP Diastolic Sitting 92 mmHg left arm, large cuff BP Systolic Standing 142 mmHg left arm, large cuff BP Diastolic Standing 90 mmHg left arm, large cuff BP Systolic Recheck 179 mmHg Home BP Cuff, [place] BP Diastolic Recheck 97 mmHg Home BP Cuff, LA Respiratory Rate 20 /min BMI (Body Mass Index) 33.4 kg/m2 02/16/2014 Heart Rate 64 /min Irregular BP Systolic Sitting 164 mmHg BP Diastolic Sitting 82 mmHg Respiratory Rate 16 /min Results Test Date Test Result H/L Range Note Laboratory test 01/31/2017 Surgical Pathology SEE RESULT BELOW 1 finding Laboratory test 06/04/2016 Alt 14 U/L 7-52 finding Ast 17 U/L 13-39 Lipid Profile (Trig/Chol/HDL) 06/04/2016 Triglycerides 452 mg/dL 2 Cholesterol 195 mg/dL 3 HDL Cholesterol 30.0 mg/dL 4 LDL Cholesterol (SEE NOTE) mg/dL 5 Laboratory test finding 06/04/2016 LDL Cholesterol Direct 66 mg/dL 6 CBC Auto Diff 11/11/2015 White Blood Count 6.0 10^3/uL 3.5-10.8 Red Blood Count 3.79 10^6/uL Low 4.0-5.4 Hemoglobin 10.7 g/dL Low 14.0-18.0 Hematocrit 32 % Low 42-52 Mean Corpuscular Volume 85 fL 80-94 Mean Corpuscular Hemoglobin 28 pg 27-31 Mean Corpuscular HGB Conc 33 g/dL 31-36 Red Cell Distribution Width 13 % 10.5-15 Platelet Count 156 10^3/uL 150-450 Mean Platelet Volume 10 um3 7.4-10.4 Abs Neutrophils 3.9 10^3/uL 1.5-7.7 Abs Lymphocytes 1.5 10^3/uL 1.0-4.8 Abs Monocytes 0.4 10^3/uL 0-0.8 Abs Eosinophils 0.1 10^3/uL 0-0.6 Abs Basophils 0 10^3/uL 0-0.2 Abs Nucleated RBC 0 10^3/uL Granulocyte % 65.0 % 38-83 Lymphocyte % 24.8 % Low 25-47 Monocyte % 7.1 % 1-9 Eosinophil % 2.5 % 0-6 Basophil % 0.6 % 0-2 Nucleated Red Blood Cells % 0.1 Inr/Protime 11/11/2015 Inr 0.97 0.89-1.11 Comp Metabolic Panel 11/11/2015 Sodium 138 mmol/L 133-145 Potassium 3.5 mmol/L 3.5-5.0 Chloride 106 mmol/L 101-111 Co2 Carbon Dioxide 25 mmol/L 22-32 Anion Gap 7 mmol/L 2-11 Glucose 118 mg/dL High 70-100 Blood Urea Nitrogen 28 mg/dL High 6-24 Creatinine 1.89 mg/dL High 0.67-1.17 BUN/Creatinine Ratio 14.8 8-20 Calcium 9.2 mg/dL 8.6-10.3 Total Protein 6.7 g/dL 6.4-8.9 Albumin 4.0 g/dL 3.2-5.2 Globulin 2.7 g/dL 2-4 Albumin/Globulin Ratio 1.5 1-3 Total Bilirubin 0.70 mg/dL 0.2-1.0 Alkaline Phosphatase 91 U/L 34-104 Alt 26 U/L 7-52 Ast 21 U/L 13-39 Egfr Non- 36.3 >60 Egfr 46.7 >60 7 Laboratory test finding 11/11/2015 Creatine Kinase(CK) 59 U/L 10-223 Troponin-I (TnI) 0.02 ng/mL <0.03 8 Laboratory test finding 11/11/2015 B-Type Natriuretic 523 pg/mL High 9 Peptide BNP CKMB 11/11/2015 CKMB ng/mL 1.7 ng/mL 0.6-6.3 Basic Metabolic Panel 10/27/2014 Sodium 138 mmol/L 133-145 Potassium 3.9 mmol/L 3.5-5.0 Chloride 102 mmol/L 101-111 Co2 Carbon Dioxide 29 mmol/L 22-32 Anion Gap 7 mmol/L 2-11 Glucose 152 mg/dL High 70-100 Blood Urea Nitrogen 20 mg/dL 6-24 Creatinine 1.14 mg/dL 0.67-1.17 BUN/Creatinine Ratio 17.5 8-20 Calcium 9.3 mg/dL 8.6-10.3 Egfr Non- 65.3 >60 Egfr 84.0 >60 10 CBC Auto Diff 10/25/2014 White Blood Count 6.8 10^3/uL 4.8-10.8 Red Blood Count 4.29 10^6/uL 4.0-5.4 Hemoglobin 12.1 g/dL Low 14.0-18.0 Hematocrit 35 % Low 42-52 Mean Corpuscular Volume 82 fL 80-94 Mean Corpuscular Hemoglobin 28 pg 27-31 Mean Corpuscular HGB Conc 35 g/dL 31-36 Red Cell Distribution Width 14 % 10.5-15 Platelet Count 179 10^3/uL 150-450 Mean Platelet Volume 10 um3 7.4-10.4 Abs Neutrophils 4.5 10^3/uL 1.5-7.7 Abs Lymphocytes 1.5 10^3/uL 1.0-4.8 Abs Monocytes 0.6 10^3/uL 0-0.8 Abs Eosinophils 0.2 10^3/uL 0-0.6 Abs Basophils 0.1 10^3/uL 0-0.2 Abs Nucleated RBC 0 10^3/uL Granulocyte % 66.5 % 38-83 Lymphocyte % 21.9 % Low 25-47 Monocyte % 8.1 % 1-9 Eosinophil % 2.8 % 0-6 Basophil % 0.7 % 0-2 Nucleated Red Blood Cells % 0 Inr/Protime 10/25/2014 Inr 0.93 0.85-1.06 Comp Metabolic Panel 10/25/2014 Sodium 137 mmol/L 133-145 Potassium 3.5 mmol/L 3.5-5.0 11 Chloride 103 mmol/L 101-111 Co2 Carbon Dioxide 26 mmol/L 22-32 Anion Gap 8 mmol/L 2-11 Glucose 160 mg/dL High 70-100 Blood Urea Nitrogen 26 mg/dL High 6-24 Creatinine 1.35 mg/dL High 0.67-1.17 BUN/Creatinine Ratio 19.3 8-20 Calcium 9.2 mg/dL 8.6-10.3 Total Protein 6.8 g/dL 6.4-8.9 Albumin 4.1 g/dL 3.2-5.2 Globulin 2.7 g/dL 2-4 Albumin/Globulin Ratio 1.5 1-3 Total Bilirubin 0.70 mg/dL 0.2-1.0 Alkaline Phosphatase 153 U/L High 34-104 Alt 149 U/L High 7-52 Ast 120 U/L High 13-39 Egfr Non- 53.7 >60 Egfr 69.1 >60 12 Laboratory test finding 09/15/2014 B Type Natriuretic 100 pg/mL 13 Peptide BMP Basic Metabolic Panel 09/15/2014 Sodium 139 mmol/L 133-145 Potassium 3.9 mmol/L 3.7-5.6 Chloride 103 mmol/L 101-111 Co2 Carbon Dioxide 28 mmol/L 22-32 Anion Gap 8 mmol/L 2-11 Glucose 99 mg/dL 70-100 Blood Urea Nitrogen 25 mg/dL High 6-24 Creatinine 1.36 mg/dL High 0.67-1.17 BUN/Creatinine Ratio 18.4 8-20 Calcium 9.5 mg/dL 8.6-10.3 Egfr Non- 53.3 >60 Egfr 68.5 >60 14 1 SEE RESULT BELOW Name: SCOTT FELIZ : [address]: Eric Guzmán MD Acct: [id number] Unit: [id number] AGE: 61 Location: [facility] Re01/31/17 SEX: M [place] [facility] [place]: [id number] KOMAL: 01/31/[address] [facility] [address]: Eric Guzmán MD REQ: [id number] RECD: 01/31/17-1615 STATUS: NATALIE MAR DR: Shukri Hannon MD _ ORDERED: LEVEL IV FINAL DIAGNOSIS Skin, right inferior lateral forehead, wide excision: -- Porocarcinoma (5 mm). -- Deep, margin clear by 4 mm. Tip and lateral margins clear by greater than 10 mm. PRE-OPERATIVE DIAGNOSIS Porocarcinoma right inferior lateral forehead, suture hernandez 12:00 anterior apex margin GROSS DESCRIPTION The specimen is received in formalin labeled, Wide Excision Porocarcinoma Right Inferior Lateral Forehead, Suture Hernandez 12:00 Anterior [place] Margin, and consists of a 6.1 x 2.4 cm meraz-white hairbearing skin ellipse excised to a depth of 0.5 cm with a central 0.5 x 0.4 cm meraz slightly raised and crusted area. There is a suture attached to one long axis, which designates the 12:00 anterior apex margin. The specimen is inked as follows : 9:00 half black, 3:00 half blue and 12:00 tip green, serially sectioned from 12:00 to 6 :00 and entirely submitted in cassettes A through G to include ellipse ends in cassette A. Signed (signature on file) Bruno Randall MD [id number] END OF REPORT * ML=Testing performed at Main Lab DEPARTMENT OF PATHOLOGY, [address] [place] [address] Bruno Randall M.D. Director [facility] # [id number] 2 Desirable <150 Borderline high 150-199 High 200-499 Very High >500 3 Desirable <200 Borderline high 200-239 High >239 4 Low <40 Desirable: 40-60 High: >60 5 Unable to calculate LDL as triglyceride is > 400 6 Desirable: <100 mg/dL Near Optimal: 100-129 mg/dL Borderline High: 130-159 mg/dL High: 160-189 mg/dL Very High: >189 mg/dL 7 Because ethnic data is not always readily available, this report includes an eGFR for both -Americans and non- Americans. The National Kidney Disease Education Program (NKDEP) does not endorse the use of the MDRD equation for patients that are not between the ages of 18 and 70, are , have extremes of body size, muscle mass, or nutritional status, or are non- or non-. According to the National Kidney Foundation, irrespective of diagnosis, the stage of the disease is based on the level of kidney function: Stage Description GFR(mL/min/1.73 m(2)) 1 Kidney damage with normal or decreased GFR 90 2 Kidney damage with mild decrease in GFR 60-89 3 Moderate decrease in GFR 30-59 4 Severe decrease in GFR 15-29 5 Kidney failure <15 (or dialysis) 8 Reference Range and Interpretation: TnI (ng/mL) Interpretation Less Than 0.03 ng/mL Not supportive of diagnosis of ME 0.03 - 0.50 ng/mL Indeterminate: suggest serial studies if clinically indicated. Greater than 0.5 ng/mL Consistent with diagnosis of ME 9 >100 to <200 pg/mL: likely compensated congestive heart failure (CHF) 200 to 400 pg/mL: likely moderate CHF >400 pg/mL: likely moderate to severe CHF 10 Because ethnic data is not always readily available, this report includes an eGFR for both -Americans and non- Americans. The National Kidney Disease Education Program (NKDEP) does not endorse the use of the MDRD equation for patients that are not between the ages of 18 and 70, are , have extremes of body size, muscle mass, or nutritional status, or are non- or non-. According to the National Kidney Foundation, irrespective of diagnosis, the stage of the disease is based on the level of kidney function: Stage Description GFR(mL/min/1.73 m(2)) 1 Kidney damage with normal or decreased GFR 90 2 Kidney damage with mild decrease in GFR 60-89 3 Moderate decrease in GFR 30-59 4 Severe decrease in GFR 15-29 5 Kidney failure <15 (or dialysis) 11 Potassium reference range changed effective 09/26/14 12 Because ethnic data is not always readily available, this report includes an eGFR for both -Americans and non- Americans. The National Kidney Disease Education Program (NKDEP) does not endorse the use of the MDRD equation for patients that are not between the ages of 18 and 70, are , have extremes of body size, muscle mass, or nutritional status, or are non- or non-. According to the National Kidney Foundation, irrespective of diagnosis, the stage of the disease is based on the level of kidney function: Stage Description GFR(mL/min/1.73 m(2)) 1 Kidney damage with normal or decreased GFR 90 2 Kidney damage with mild decrease in GFR 60-89 3 Moderate decrease in GFR 30-59 4 Severe decrease in GFR 15-29 5 Kidney failure <15 (or dialysis) 13 >100 to <200 pg/mL: likely compensated congestive heart failure (CHF) 200 to 400 pg/mL: likely moderate CHF >400 pg/mL: likely moderate to severe CHF [place] [facility] 14 Because ethnic data is not always readily available, this report includes an eGFR for both -Americans and non- Americans. The National Kidney Disease Education Program (NKDEP) does not endorse the use of the MDRD equation for patients that are not between the ages of 18 and 70, are , have extremes of body size, muscle mass, or nutritional status, or are non- or non-. According to the National Kidney Foundation, irrespective of diagnosis, the stage of the disease is based on the level of kidney function: Stage Description GFR(mL/min/1.73 m(2)) 1 Kidney damage with normal or decreased GFR 90 2 Kidney damage with mild decrease in GFR 60-89 3 Moderate decrease in GFR 30-59 4 Severe decrease in GFR 15-29 5 Kidney failure <15 (or dialysis) Procedures Date CPT Code Description Status 04/02/2018 24145 EKG Tracing & Interpretation Completed 04/10/2017 76261 EKG Tracing & Interpretation Completed 10/10/2016 90626 EKG Tracing & Interpretation Completed 06/04/2016 79936 EKG Tracing & Interpretation Completed 11/12/2015 45058 EKG, Interpretation Only Completed 10/05/2015 23413 EKG Tracing & Interpretation Completed 06/12/2015 29717 Polysomnography Sleep Staging 4+ Parameters W/Cpap Completed 04/17/2015 20671 Polysomnography Sleep Staging 4+ Parameters Completed 03/30/2015 97992 EKG Tracing & Interpretation Completed 02/02/2015 36915 EEG Recording Awake & Asleep Completed 02/02/2015 77577 ECHO Transthorasic Realtime 2D W Doppler & Color Completed [facility] 02/01/2015 79168 Holter Monitor Review (24 hr)dr ybarra & antonio Completed only 11/02/2014 32350 EKG Tracing & Interpretation Completed 10/26/2014 20712 EKG, Interpretation Only Completed 10/25/2014 84047 Cardiac Cath,LT Hrtmincl Intraprocedural Ink LT Completed Ventricul Mammary 10/25/2014 03076 EKG, Interpretation Only Completed 10/25/2014 96075 Revascularization Coronary Artery Bypass Graft Completed 08/27/2014 90424 ECHO Transthorasic Realtime 2D W Doppler & Color Completed [facility] 08/27/2014 78286 Treadmill Interp/Report Only Completed 08/27/2014 24807 Stress Test Supervsn W/Out I/R Completed 08/25/2014 22375 EKG Tracing & Interpretation Completed 02/04/2014 14883 Stress Test Completed Encounters Type Date Location Provider CPT E/M Dx Office Visit 04/02/2018 [facility] Denny Hannon M.D., [address] Z01.810 2:20p [facility] AT [facility], [facility] I25.708 Office Visit 03/13/2018 11:17a [facility], Solomon Ortiz, 67316 R00.1 Hospitalists MJennifer N17.9 R19.7 E87.5 Office Visit 03/12/2018 11:16a [facility], Scott Jon, 70654 R00.1 Hospitalists Sebastian N17.9 R19.7 E87.5 Office Visit 03/11/2018 11:15[place] [address] R00.1 N17.9 R19.7 E87.5 Office Visit 03/11/2018 11:14a [facility], Scott Jon, 34420 R00.1 Hospitalists Sebastian N17.9 R19.7 E87.5 Office Visit 03/10/2018 11:13[place] [address] R00.1 K92.2 E87.5 N17.9 Office Visit 03/10/2018 11:12a [facility], Xenia Zapata, 77827 K92.2 Hospitalists MJennifer R00.1 Office Visit 04/10/2017 9:00a [facility] Aj Hannon M.D., 92676 I10 AT [facility], [facility] E78.5 I25.10 Office Visit 11/16/2016 10:00a [facility] [place] [address] [facility] Office Visit 10/29/2016 4:00p [facility] [place] [address] [facility] Office Visit 10/10/2016 9:00a [facility] Denny Hannon M.D., [address] [facility] AT [facility], [facility] E78.5 I10 Office Visit 09/07/2016 9:15a [facility] Kelly Guzman, [address] [facility] CATES[facility] G47.14 Office Visit 06/04/2016 9:20a [facility] Of Aj Hannon M.D., [address] [facility] AT [facility] E78.5 I10 I25.10 Office Visit 06/01/2016 9:15a [facility] Kelly Guzman, [address] [facility] LATONYA CATES, [facility] G47.14 F32.9 Office Visit 02/24/2016 2:31p [facility], Bernadine Melo, 50316 I63.8 Hospitalists MJennifer H53.2 I10 E11.9 Office Visit 02/23/2016 2:31p [facility], Scott Jon, 48797 I63.8 Hospitalists MJennifer H53.2 I10 E11.9 Office Visit 02/23/2016 3:08p [facility] [address] I63.9 Office Visit 02/22/2016 2:30p [facility], Scott Jon, 74603 I63.8 Hospitalists MJennifer H53.2 I10 E11.9 Office Visit 02/22/2016 3:12p [facility] [address] I63.9 Office Visit 12/15/2015 8:45a [facility] [place] [address] I10 AT [facility] Office Visit 12/02/2015 8:30a [facility] Kelly Guzman, [address] [facility] LATONYA CATES, [facility] Office Visit 11/30/2015 3:00p [facility] Aj Hannon, 76315 I10 AT [facility] Sebastian, [facility], [facility] I25.9 E78.5 Office Visit 11/12/2015 10:41a [facility], Bernadine Melo, 63120 R07.9 Hospitalists MJennifer I25.708 N18.3 I10 Office Visit 11/11/2015 10:40a [facility], Bernadine Modihn, 06977 R07.9 Hospitalists Sebastian I25.708 N18.3 I10 Office Visit 10/05/2015 10:00a [facility] Of Aj Hannon M.D., 25782 I25.9 Hospice Consultant AT [facility], [facility] I10 E78.5 Office Visit 07/08/2015 11:30a [facility] Luc Shine M.D. 60535 327.23 Services Of Hospice Consultant 414.9 401.9 Office Visit 05/18/2015 3:30p [facility] [place] [facility] [place] [place] [address] 401.9 AT [facility] Office Visit 05/04/2015 11:15a [facility] Luc Shine M.D. 21730 327.23 Services Of Hospice Consultant 401.9 Office Visit 04/26/2015 1:30p [facility] [place] [facility] [place] [address] 401.9 AT [facility] Office Visit 04/19/2015 1:30p [facility] [place] [facility] [place] [address] 401.9 AT [facility] Office Visit 04/14/2015 9:30a [facility] [place] [facility] [place] [address] 401.9 AT [facility] Office Visit 03/30/2015 8:40a [facility] Of [facility] Aj Hannon M.D., 27434 414.9 AT [facility] 401.9 272.4 Office Visit 03/10/2015 11:00a [facility] Luc Shine M.D. 12504 401.9 Services Of Hospice Consultant 780.79 786.09 Office Visit 02/05/2015 10:52a [facility], Xenia Zapata, 93044 435.9 Hospitalists Sebastian 427.1 272.4 780.57 Office Visit 02/04/2015 1:39p [facility] Carli Bennett, 57321 435.9 M.D. Office Visit 02/04/2015 10:52a [facility], Xenia Zapata, 57264 435.9 Hospitalists Sebastian 272.4 250.00 401.9 Office Visit 02/03/2015 1:38p [facility] Carli Bennett, 54675 435.9 M.D. Office Visit 02/03/2015 10:52a [facility]pc Xenia Zapata, 70816 435.9 Hospitalists M.D. 272.4 250.00 401.9 Office Visit 02/02/2015 1:36p [facility] [address] 435.9 780.97 Office Visit 02/02/2015 10:51a [facility], Xenia Zapata, 66712 435.9 Hospitalists M.D. 272.4 401.9 250.00 Office Visit 02/01/2015 1:33p [facility] Carli Bennett, 26460 435.9 M.D. Office Visit 02/01/2015 10:51a [facility], Yoshi Knight, 82371 435.9 Hospitalists N.P. 272.4 250.00 401.9 Office Visit 11/02/2014 3:00p [facility] Of Aj Hannon M.D., [address] [facility] AT [facility] 401.1 272.4 Office Visit 10/26/2014 1:51p [facility] M.D., 88874 413.9 [facility] Visit 10/13/2014 1:45p [facility] [place] [address] 401.1 AT [facility] Office Visit 10/07/2014 3:20p [facility] Aj H[facility] M.D., 26360 401.1 [facility] 414.9 272.4 Office Visit 09/15/2014 1:45p [facility] [place] [address] 401.1 AT [facility] Office Visit 09/09/2014 3:00p [facility] Aj Hannon M.D., 22353 414.9 AT [facility] 401.1 272.4 Office Visit 08/25/2014 2:40p [facility] Denny Hannon M.D., [address] [facility] AT [facility] 401.1 272.4 Office Visit 02/16/2014 2:00p [facility] Joe Ordoñez, [address] [facility] Sebastian v70.3 Plan of Care Future Appointment(s):04/23/2018 3:20 pm - Aj Hannon M.D., [facility], [facility] at [facility] AT [facility]04/15/2018 10:30 am - Aj Hannon M.D., [facility], [facility] at [facility] AT [facility]04/02/2018 - Aj Hannon M.D., [facility], UEJFEP78.810 Encounter for preprocedural cardiovascular examinationNew Orders: Stress Test, Pharmacologic Nuclear (Lexiscan)Comments:You are noticing anginal episodes at times with exertionFollow up:after testingRecommendations:We will schedule testing to analyze the heart's status to tolerate surgery.I25.708 Atherosclerosis of CABG, unsp, w oth angina pectorisComments:You notice anginal symptoms with exertion for which you have taken nitroglycerinRecommendations:We will get a stress test to analyze the severity of compromised blood flow to your heart.
[2018-04-14 23:15] LABS: Hematocrit 27 % (42-52); Hemoglobin 9.3 g/dl (14.0-18.0); Mean Corpuscular HGB Conc 35 g/dl (31-36); Mean Corpuscular Hemoglobin 30 pg (27-31); Mean Corpuscular Volume 85 fL (80-94); Mean Platelet Volume 8.8 um3 (7.4-10.4); Platelet Count 168 10^3/ul (150-450); Red Blood Count 3.16 10^6/ul (4.0-5.4); Red Cell Distribution Width 14 % (10.5-15); White Blood Count 8.9 10^3/ul (3.5-10.8)
[2018-04-14 23:30] LABS: EGFR Non-African American 14.6 (>60)
[2018-04-14] MEDS ORDERED: Labetalol IV* 5 MG/ML 20 ML VIAL IV PUSH ONE (23:57)
[2018-04-14] MEDS ORDERED: Nitroglycerin 2% OINT* 1 GM PAK TOPICAL ONE (23:57)
[2018-04-14] MEDS ORDERED: Enoxaparin(*) 100 MG/ML SYR SUBCUT ONE (23:57)
[2018-04-15 00:12] LABS: ABS Basophils 0.1 10^3/ul (0-0.2); ABS Eosinophils 0.3 10^3/ul (0-0.6); ABS Monocytes 0.5 10^3/ul (0-0.8); ABS Nucleated RBC 0 10^3/ul; Eosinophil % 3.9 % (0-6); Lymphocyte % 11.5 % (25-47); Nucleated Red Blood Cells % 0
[2018-04-15] MEDS ORDERED: Acetaminophen TAB* 325 MG PO PRN (00:43)
[2018-04-15] MEDS ORDERED: Al Hydrox/Mg Hydrox/Simet LIQ* 30 ML UDC PO PRN (00:43)
[2018-04-15] MEDS ORDERED: Docusate CAP* 100 MG PO PRN (00:43)
[2018-04-15] MEDS ORDERED: Ondansetron 40 MG VIAL* 2 MG/ML 20 ML VIAL IV PRN (00:43)
[2018-04-15] MEDS ORDERED: Senna TAB PO PRN (00:43)
[2018-04-15] MEDS ORDERED: Dextrose 50% Syringe 50 ML* 25 GM/50 ML SYRINGE IV PUSH PRN ×2 (01:07)
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
--- NOTE | 2018-04-15 04:34 | HP ---
Cc: Dr. Caban; Dr. Hannon HISTORY AND PHYSICAL: DATE OF ADMISSION: 04/15/18 TIME OF EVALUATION: 0030 PRIMARY CARE PROVIDER: Dr. Caban. CHIEF PSYCHOLOGY: Dr. Hannon. CHIEF COMPLAINT: Chest pain. HISTORY OF PRESENT ILLNESS: This is a 63-year-old male with past medical history of coronary artery disease, diabetes, hypertension and stroke who presents to the emergency room with chest pain. He is here with is . He states he was out climbing up the incline to check on his chickens. When he came back, watching TV, began developing chest pain. He took 2 nitro and he did have some relief but the chest pain returned. He took another third nitro and was concerned and came to the emergency room for further evaluation. He is currently chest pain free. He states his last admission was a month ago and prior to that he had another episode of chest pain that resolved after 2 nitro. He is still taking his aspirin and Plavix. He did have associated shortness of breath. No nausea or diaphoresis. He denies any changes in his weight. He wears compression stockings to improve his lower extremity swelling. He has had some seasonal allergies versus a mild URI. No fevers. He states he does get black stools off and on. No lightheadedness now. He did have some lightheadedness and dizziness when the chest pain came on. Otherwise review of systems negative. In the emergency room, the patient had labs and imaging. He was given Lovenox a 100 mg subcu, labetalol 20 mg IV and an inch of nitro paste and referred to the hospitalist service for further evaluation. As mentioned, the patient is currently chest pain free. The patient is scheduled to have an outpatient stress test this morning at 8 a.m. PAST MEDICAL HISTORY: 1. History of coronary artery disease, status post bypass followed by Dr. Hannon. 2. History of PCI in 2013. 3. Hyperlipidemia. 4. Hypertension. 5. History of TIA. 6. History of percutaneous closure of PFO. 7. Diabetes. 8. 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 9. History of appendectomy. 10. History of left tendon knee repair. 11. GERD. 12. BPH, now with indwelling Joe catheter, followed by Dr. Fleming. 13. History of suspected seizures. 14. Obstructive sleep apnea. 15. Concern for an upper GI bleed on his last admission in February with Hemoccult negative stool, not requiring transfusion. 16. History of bradycardia. 17. History of hyperkalemia. MEDICATIONS: 1. There was question of his citalopram that was recently changed but has been confirmed here on his med rec which needs to be double checked. 2. Buspirone 10 mg p.o. b.i.d. 3. Amlodipine 10 mg in the morning, 10 mg in the evening. 4. Vitamin B complex p.o. daily. 5. Flomax 0.4 mg in the evening. 6. Rosuvastatin 20 mg daily. 7. Pantoprazole 40 mg daily. 8. Fowler 3 one cap p.o. t.i.d. 9. Nitro sublingual as needed. 10. Multivitamin. 11. Toprol tartrate 50 mg p.o. b.i.d. I suspect this was lowered on his last admission according to that discharge summary but again needs to be confirmed. 12. Also, states he is on metoprolol succinate, this pharmacy needs to be called. 13. Metformin 500 mg p.o. b.i.d. 14. Magnesium oxide 400 mg p.o. daily. 15. Lisinopril 5 mg daily. 16. Isosorbide mononitrate 240 mg p.o. daily. 17. Lasix 40 mg in the morning. 18. Finasteride 5 mg p.o. daily. 19. Plavix 75 mg daily. 20. Vitamin D3 of 2000 units daily. 21. Aspirin 325 mg p.o. daily b.i.d., but the patient states he only takes it once a day, again med rec needs to be reconciled. 22. Vitamin C 1000 mg daily. ALLERGIES: SULFAMETHOXAZOLE, TRIMETHOPRIM, he develops a rash. FAMILY HISTORY: History of coronary artery disease with both his mother and his father. SOCIAL HISTORY: The patient lives at home with his Malka Watson, who is his healthcare proxy. No history of smoking. Occasional alcohol 1 to 2 times a month. He is on disability. Code states full code. REVIEW OF SYSTEMS: A 14-point review of systems as mentioned in the HPI, otherwise negative. PHYSICAL EXAMINATION GENERAL: No acute distress. Resting comfortably with his at the bedside. VITAL SIGNS: Temp is 98.3, pulse rate is 68, respiratory rate is 17, oxygen saturation is 95% on room air, blood pressure 189/85. HEENT: Head, normocephalic. Pupils equal and reactive, anicteric. Oropharynx : Mucous membranes are moist. NECK: Supple, no lymph adenopathy. RESPIRATORY: Clear to auscultation. No wheezes, rhonchi or rales heard. CARDIAC: Regular rate and rhythm. Soft systolic murmur heard throughout. ABDOMEN: Soft, nontender, nondistended. EXTREMITIES: Trace pretibial edema, +1 DPs. NEUROLOGIC: Alert and oriented x3. No focal neurologic deficits. LABORATORY DATA: White count 8.9, hemoglobin 9.3, hematocrit 27, platelets 168. Sodium 134, potassium 5.6, chloride 107, bicarb 18, BUN 68, creatinine 4.13 , glucose 269, troponin 0.02. RADIOGRAPHIC DATA: Some abnormal ST changes. On repeat EKG with chest pain free, shows improvement of the ST changes with a prolonged MT interval and sinus rhythm. Chest x-ray, no significant finding on wet read, improved from his prior chest x - ray. ASSESSMENT: This is a 63-year-old male with multiple comorbidities and cardiac risk factors including known coronary artery disease, status post bypass and stents who presents with typical chest pain. 1. Chest pain. Assessment: This is concerning for unstable angina or N-STEMI. He was scheduled to get a stress test today with Dr. Hannon; however, with his worsening renal function, he may not be a candidate for catheterization with contrast loading. He is currently chest pain free. Plan: He did get a dose of Lovenox depending on what his troponins are, we will start him on a heparin drip in 12 hours from his Lovenox dosing. Continue him on his aspirin and Plavix and nitro paste and metoprolol and we will contact Cardiology in the morning. We will keep him n.p.o. and for possible stress test versus cardiac catheterization. We will also repeat a Hemoccult although his H and H appears stable. 2. Acute on chronic kidney impairment: Assessment: The patient with significant worsening in his renal function over the past year as compared to 2016. I suspect he has been over diuresed with his elevated potassium and BUN. Plan: We will hold his Lasix, which I presume he is on; hold the lisinopril and spironolactone as well. Unclear what is actual medication list is and repeat his labs in the morning. 3. History of a gastrointestinal bleed. Assessment: Last admission, back in February there was concern for this, but there was a thought that may be melena was due to iron supplements as he had 2 Hemoccults that were negative. He states he has melena or black stools off and on. His H and H has not really changed. Plan: I will repeat a Hemoccult, continue him on his aspirin and Plavix and omeprazole. CHRONIC MEDICAL PROBLEMS: 1. Diabetes, we will hold his oral agents, place him on Lispro sliding scale. 2. Hypertension, continue his amlodipine, his metoprolol and as mentioned holding his lisinopril. 3. Benign prostatic hypertrophy with urinary retention. Continue his indwelling Joe catheter, continue his Flomax and finasteride. 4. Continue his buspirone. 5. FEN: Keep the patient n.p.o., hold off on fluids at this time. 6. DVT prophylaxis: The patient scores high risk. He got a dose of Lovenox. This will need to be addressed either with heparin drip at noon or DVT prophylaxis depending on the course that transpired with his troponins and further input from Cardiology. 7. Code status: Full code. This was confirmed. PATIENT TIME: Greater than 50 minutes was spent doing history and physical, more than half time spent in direct patient contact. [id number]/CPS #: [id number] MTDD
[2018-04-15 05:48] LABS: EGFR Non-African American 15.8 (>60)
[2018-04-15] MEDS ORDERED: Sodium Polystyrene ORAL.SOL* 15 GM/60 ML BTL PO ONE ×2 (05:52→19:08)
--- NOTE | 2018-04-15 07:45 | RAD ---
INDICATION: Chest pain COMPARISON: Chest x-ray January 12, 2015 TECHNIQUE: An AP portable view obtained at 2250 hours is submitted. FINDINGS: Bones/Soft Tissues: There are no acute bony findings. There is sternotomy Cardiomediastinal: The cardiomediastinal silhouette is mildly prominent. Lungs: There are no infiltrates. Pleura: There are no pleural effusions. Other: None IMPRESSION: NO ACTIVE CARDIOPULMONARY DISEASE.
[2018-04-15] MEDS ORDERED: amLODIPine TAB* 5 MG PO SCH (09:00)
[2018-04-15] MEDS: Aspirin TAB* 325 MG PO SCH (09:18)
[2018-04-15] MEDS: Metoprolol Tartrate TAB* 25 MG PO SCH ×2 (09:19→20:03)
[2018-04-15] MEDS: Finasteride TAB* 5 MG PO SCH (09:19)
[2018-04-15] MEDS: CMCS:Pantoprazole TAB (NF) 40 MG TAB PO SCH (09:19)
[2018-04-15] MEDS: Isosorbide Mononitrate ER TAB* 60 MG PO SCH (09:19)
[2018-04-15] MEDS: busPIRone TAB* 10 MG PO SCH ×2 (09:19→20:03)
[2018-04-15] MEDS: Clopidogrel TAB* 75 MG PO SCH (09:19)
[2018-04-15] MEDS: Magnesium Oxide TAB* 400 MG PO SCH (09:19)
[2018-04-15] MEDS: Insulin LISPRO* 1 UNITS UNIT SUBCUT SCH ×6 (09:23→18:34)
--- NOTE | 2018-04-15 14:38 | PN ---
Subjective Date of Service: 04/15/18 Interval History: Pt is feeling ok. He denies any chest pain. No SOB at this time. I explain to Mr Watson that we need to decide how to proceed and that Dr. Hannon wants to speak to his . A meeting is set up for 4:15 this afternoon. Objective Active Medications: Acetaminophen (Tylenol Tab*) 650 mg PO Q4H PRN PRN Reason: FEVER/PAIN Al Hydrox/Mg Hydrox/Simethicone (Maalox Plus*) 30 ml PO Q6H PRN PRN Reason: INDIGESTION Amlodipine Besylate (Norvasc Tab*) 10 mg PO DAILY [facility] Last Admin: 04/15/18 09:18 Dose: 10 mg Aspirin (Aspirin Tab*) 325 mg PO DAILY [facility] Last Admin: 04/15/18 09:18 Dose: 325 mg Buspirone HCl (Buspar Tab*) 10 mg PO BID [facility] Last Admin: 04/15/18 09:19 Dose: 10 mg Clopidogrel Bisulfate (Plavix Tab*) 75 mg PO DAILY [facility] Last Admin: 04/15/18 09:19 Dose: 75 mg Dextrose (D50w Syringe 50 Ml*) 12.5 gm IV PUSH .FOR FS < 60 - SS PRN PRN Reason: FS < 60 Docusate Sodium (Colace Cap*) 100 mg PO BID PRN PRN Reason: CONSTIPATION Finasteride (Proscar Tab*) 5 mg PO DAILY [facility] Last Admin: 04/15/18 09:19 Dose: 5 mg Insulin Human Lispro (Humalog*) 0 units SUBCUT AC [facility] PRN Reason: Protocol Last Admin: 04/15/18 13:15 Dose: Not Given Insulin Human Lispro (Humalog*) 0 units SUBCUT AC [facility] PRN Reason: Protocol Last Admin: 04/15/18 13:15 Dose: Not Given Isosorbide Mononitrate (Imdur Er Tab*) 240 mg PO DAILY [facility] Last Admin: 04/15/18 09:19 Dose: 240 mg Magnesium Oxide (Magox 400 Tab*) 400 mg PO DAILY [facility] Last Admin: 04/15/18 09:19 Dose: 400 mg Metoprolol Tartrate (Lopressor Tab*) 25 mg PO BID [facility] Last Admin: 04/15/18 09:19 Dose: 25 mg Ondansetron HCl (Zofran 40 Mg Vial*) 4 mg IV Q4H PRN PRN Reason: NAUSEA/VOMITING Pantoprazole Sodium (Protonix Tab (Nf)) 40 mg PO DAILY [facility] Last Admin: 04/15/18 09:19 Dose: 40 mg Senna (Senokot Tab*) 1 tab PO BID PRN PRN Reason: CONSTIPATION Tamsulosin HCl (Flomax Cap*) 0.4 mg PO BEDTIME [facility] Vital Signs - 8 hr 04/15/18 04/15/18 07:43 11:22 Temperature 98.0 F 97.8 F Pulse Rate 70 63 Respiratory 18 18 Rate Blood Pressure 165/71 140/75 (mmHg) O2 Sat by Pulse 96 95 Oximetry Oxygen Devices in Use Now: None Appearance: Middle aged male sitting up in bed, NAD Eyes: No Scleral Icterus Ears/Nose/Mouth/Throat: Mucous Membranes Moist Respiratory: Symmetrical Chest Expansion and Respiratory Effort, Clear to Auscultation Cardiovascular: NL Sounds; No Murmurs; No JVD, RRR, No Edema Abdominal: NL Sounds; No Tenderness; No Distention Extremities: No Clubbing, Cyanosis Skin: No Rash or Ulcers, No Nodules or Sclerosis Neurological: Alert and Oriented x 3 Result Diagrams: 04/14/18 23:02 04/15/18 05:12 Additional Lab and Data: Lab Results 04/14/18 04/14/18 Range/Units 23:02 23:02 WBC 8.9 (3.5-10.8) 10^3/ul RBC 3.16 L (4.0-5.4) 10^6/ul Hgb 9.3 L (14.0-18.0) g/dl Hct 27 L (42-52) % MCV 85 (80-94) fL MCH 30 (27-31) pg MCHC 35 (31-36) g/dl RDW 14 (10.5-15) % Plt Count 168 (150-450) 10^3/ul MPV 8.8 (7.4-10.4) um3 Neut % (Auto) Pending Lymph % (Auto) Pending [place] % (Auto) Pending Eos % (Auto) Pending Baso % (Auto) Pending Absolute Neuts (auto) Pending Absolute Lymphs (auto) Pending Absolute Monos (auto) Pending Absolute Eos (auto) Pending Absolute Basos (auto) Pending Absolute Nucleated RBC Pending Nucleated RBC % Pending Sodium 134 L (139-145) mmol/L Potassium 5.6 H (3.5-5.0) mmol/L Chloride 107 (101-111) mmol/L Carbon Dioxide 18 L (22-32) mmol/L Anion Gap 9 (2-11) mmol/L BUN 68 H (6-24) mg/dL Creatinine 4.13 H (0.67-1.17) mg/dL Est GFR ( Amer) 18.8 (>60) Est GFR (Non-Af Amer) 14.6 (>60) BUN/Creatinine Ratio 16.5 (8-20) Glucose 269 H (70-100) mg/dL Calcium 9.1 (8.6-10.3) mg/dL Total Bilirubin 0.30 (0.2-1.0) mg/dL AST 12 L (13-39) U/L ALT 19 (7-52) U/L Alkaline Phosphatase 81 (34-104) U/L Troponin I 0.02 (<0.04) ng/mL Total Protein 6.2 L (6.4-8.9) g/dL Albumin 3.5 (3.2-5.2) g/dL Globulin 2.7 (2-4) g/dL Albumin/Globulin Ratio 1.3 (1-3) Microbiology and Other Data: Microbiology 04/15/18 08:10 Stool Occult Blood (ANA) - Final Stool Assess/Plan/Problems-Billing Mr Watson is a 63yo M who has a h/o significant CAD, past CVA, HTN, HLD, type II DM and stage IV CKD who presented to the ER with c/o chest pain. - Patient Problems (1) Chest pain Current Visit: Yes Status: Acute Code(s): R07.9 - CHEST PAIN, UNSPECIFIED SNOMED Code(s): 62558523 Comment: Troponin mildly elevated. Dr. Hannon to meet with pt and his later this afternoon. ? stress test vs catheterization. No further episodes of chest pain at this time. (2) Type II diabetes mellitus Current Visit: Yes Status: Acute Comment: Blood sugars are under good control. Continue lispro sliding scale. He should not be on metformin any further given his renal function. (3) Chronic kidney disease, stage IV (severe) Current Visit: Yes Status: Acute Code(s): N18.4 - CHRONIC KIDNEY DISEASE, STAGE 4 (SEVERE) SNOMED Code(s): 085996604 Comment: Creatinine continues to worsen from his baseline. Will follow very closely especially if he needs catheterization. (4) HTN (hypertension) Current Visit: Yes Status: Acute Code(s): I10 - ESSENTIAL (PRIMARY) HYPERTENSION SNOMED Code(s): 36635909 Comment: BP moderately elevated on amlodipine, metoprolol and imdur but given his h/o CVAs his BP can not be lowered. (5) BPH (benign prostatic hyperplasia) Current Visit: Yes Status: Acute Code(s): N40.0 - BENIGN PROSTATIC HYPERPLASIA WITHOUT LOWER URINRY TRACT SYMP SNOMED Code(s): 499256063 Comment: Continue chauhan drainage and flomax. (6) Dyslipidemia Current Visit: Yes Status: Chronic Code(s): E78.5 - HYPERLIPIDEMIA, UNSPECIFIED SNOMED Code(s): 577266758 Comment: Resume statin. (7) DVT prophylaxis Current Visit: Yes Status: Acute Onset Date: 02/01/15 Code(s): HYZ1932 - SNOMED Code(s): 181511059 Comment: SQ heparin (8) Full code status Current Visit: Yes Status: Acute Onset Date: 02/01/15 Code(s): Z78.9 - OTHER SPECIFIED HEALTH STATUS SNOMED Code(s): 196438376
--- NOTE | 2018-04-15 14:45 | ECHO ---
Patient: SCOTT FELIZ Rec#: [id number] : 1955 Date: 04/15/2018 Age: 63y Height: 182.88 cm / 72.0 in Weight: 112.49 kg / 247.9 lbs Sex: M BSA: 2.33 Room#: [facility] Admit Date#: 04/15/2018 Type: Inpatient Referring: Aj Hannon MD Reading: Aj Hannon MD Biometrics Technician: Annia RodríguezSCOTTY CC: Benjy Caban MD Transthoracic Echocardiogram Indication: Chest pain BP: 165/71 HR: 57 Rhythm: Bradycardia Findings History: CAD s/p CABG, s/p PCI, HTN, HLD, DM, obesity, HOWARD, TIA, s/p PFO closure, CKD III-IV. Technical Comments: The study quality is fair. Completed at 1245. Left Ventricle: The left ventricular chamber size is normal. Moderate concentric left ventricular hypertrophy is observed. There is normal left ventricular systolic function. The estimated ejection fraction is 55-60%. Ventricular septal wall motion has a post-operative appearance. Paradoxical septal motion is seen. Abnormal left ventricular diastolic function is observed. Abnormal left ventricular diastolic filling is observed, consistent with impaired relaxation. Left Atrium: The left atrium is mildly dilated. Right Ventricle: Moderator Band present. The right ventricle is mildly dilated. The right ventricular global systolic function is normal. Right Atrium: The right atrium is mildly dilated. Aortic Valve: The aortic valve is trileaflet. The aortic valve leaflets are mildly thickened. There is a trace of aortic regurgitation. There is no evidence of aortic stenosis. Mitral Valve: The mitral valve leaflets are mildly thickened. There is mild mitral regurgitation. There is no evidence of mitral stenosis. Tricuspid Valve: The tricuspid valve leaflets are normal. There is trace to mild tricuspid regurgitation. The right ventricular systolic pressure is estimated at 27 mmHg. There is evidence that pulmonary hypertension may be underestimated. There is no tricuspid stenosis. Pulmonic Valve: The pulmonic valve appears normal. There is mild to moderate pulmonic regurgitation. There is no pulmonic stenosis. Pericardium: There is no significant pericardial effusion. A pericardial fat pad is visualized. Aorta: There is mild dilatation of the ascending aorta. There is no dilatation of the aortic arch. There is mild dilatation of the aortic root. Pulmonary Artery: The main pulmonary artery appears normal. Venous: The inferior vena cava is dilated. There is a greater than 50% respiratory change in the inferior vena cava dimension. Conclusions Moderate concentric left ventricular hypertrophy is observed. There is normal left ventricular systolic function. The estimated ejection fraction is 55-60%. Ventricular septal wall motion has a post-operative appearance. Paradoxical septal motion is seen. Abnormal left ventricular diastolic filling is observed, consistent with impaired relaxation. The left atrium is mildly dilated. The right atrium is mildly dilated. There is a trace of aortic regurgitation. There is mild mitral regurgitation. There is trace to mild tricuspid regurgitation. There is mild to moderate pulmonic regurgitation. There is mild dilatation of the ascending aorta. There is mild dilatation of the aortic root.Compared to report of study from 02/02/2015 , if anything the LV systolic function is slightly better (was 50%), the degree of mitral regurgitation is slightly increased,(was trace to mild) , the pulmonic regurgitation is increased (was trace to mild). Measurements Name Value Normal Range RVIDd (AP) 2D 4 cm (0.9 - 2.6) RVDdMajor (2D) 4.2 cm (2.2 - 4.4) RAd ISD 4CH 5.5 cm (3.4 - 4.9) RA (A4C)W 4.2 cm (2.9 - 4.6) IVSd (2D) 1.7 cm (0.6 - 1) LVPWd (2D) 1.6 cm (0.6 - 1) LVIDd (2D) 4.7 cm (3.6 - 5.4) LVIDs (2D) 3.2 cm - LV FS (2D) 31 % (25 - 45) Aortic Annulus 2.4 cm (1.4 - 2.6) Ao root diameter (2D) 3.9 cm (2.1 - 3.5) Ascending Ao 3.7 cm (2.1 - 3.4) Aortic arch 3 cm (1.8 - 3.4) LA dimension (AP) 2D 4.7 cm (2.3 - 3.8) LAd ISD 4CH 5.7 cm (2.9 - 5.3) LA ISD 4CH W 4.9 cm (2.5 - 4.5) Name Value Normal Range LA ESV SP 4CH (A/L) 88 ml - LA ESV SP 2CH (A/L) 69 ml - LA ESV BP (A/L) 83 ml - LA ESV BP (A/L) index 36 ml/m2 - LA ESV SP 4CH (MOD) 82 ml - LA ESV SP 2CH (MOD) 64 ml - Name Value Normal Range MV E-wave Vmax 0.42 m/sec - MV deceleration time 371 msec - MV A-wave Vmax 0.64 m/sec - MV E:A ratio 0.66 ratio - LV septal e' Vmax 0.06 m/sec - LV lateral e' Vmax 0.08 m/sec - LV E:e' septal ratio 7 ratio - LV E:e' lateral ratio 5.25 ratio - Name Value Normal Range AV Vmax 1.24 m/sec - AV VTI 22.82 cm - AV peak gradient 6.19 mmHg - AV mean gradient 2.85 mmHg - LVOT Vmax 0.95 m/sec - LVOT VTI 17.65 cm - LVOT peak gradient 3.67 mmHg - LVOT mean gradient 2 mmHg - LEOBARDO Vmax 0.89 m/sec - Name Value Normal Range TR Vmax 2.2 m/sec - TR peak gradient 19 mmHg - RAP 8 mmHg - RVSP 27 mmHg - IVC diameter 2.1 cm - Name Value Normal Range PV Vmax 0.96 m/sec - PV peak gradient 3.76 mmHg - WV end-diastolic Vmax 1.22 m/sec -
--- NOTE | 2018-04-15 20:58 | CONS ---
CC: Dr. Benjy Caban; Dr. Fleming of [facility] * CARDIOLOGY CONSULT: DATE OF CONSULT: 04/15/18 REASON FOR CONSULT: The patient with abnormal cardiac enzymes with chest discomfort and a history of coronary artery disease, assessed for acute coronary syndrome. HISTORY OF PRESENT ILLNESS: The patient is a 63-year-old gentleman known to me for his coronary artery disease in the past. He now states that he went to feed the chickens at his house in the evening and went up a hill and on the way back down, started developing chest discomfort. He took 2 nitroglycerin and his found his blood pressure was as high as in the 200 range. The 2 nitroglycerin seemed to take it away. He then laid down in bed and developed recurrent chest discomfort that occurred 20 minutes later, he took one nitroglycerin and then summoned an ambulance because of the recurrent chest discomfort. In the emergency room, he originally related his discomfort as a 2/10. He was given nitro paste and the discomfort subsided. Interestingly, he does feed the chickens periodically and he has not had any angina since back prior to my office visit when I saw him on 04/02/18. He does have a history of coronary artery disease dating back to a bypass surgery in 2002 with a MARTINEZ graft to the LAD, left radial graft to the PDA of the right coronary artery. The posterior left ventricular branch and the ramus branch were felt to be too small for bypass by a surgeon. At that point in time , his catheterization on 07/01/03 showed a 90% proximal LAD and 80% mid LAD, a 50% mid circumflex, a 70% proximal stenosis and the ramus intermedius. The right coronary artery with 30% proximal, 50% mid, 80% distal lesion involving the ostium of the PDA and the ostium of the posterior LV branch. LV function was normal with trace MR at that time. He subsequently had a repeat cardiac catheterization in October 2014 for continued angina despite attempts at aggressive medical management. With stress test in August 2010 demonstrating [id number] induced ischemia with an EF of 43%, felt to be an intermediate risk. The cardiac catheterization in 2013 demonstrated a 40% to 45 % distal left main lesion. There was a critical 90% lesion in the left anterior descending artery near to ostium. Past this point, there was some lucency suggesting a possible thrombus. The vessel then tapered with competitive flow that were a very thin first high diagonal branch to caliber, which was not amenable to intervention, it had a significant disease in that as well as the first diagonal branch. The circumflex had a high trifurcation marginal branch, which had a 75% to 80% proximal obstruction which was too small of a vessel for attempted intervention. Past the first trifurcation marginal branch, the circumflex had 45% to 50% followed by 60% mid narrowing in the proximal portion of bifurcating obtuse marginal branch. The right coronary artery with a dominant vessel totally occluded proximally. There was collateral blood flow seen to the distal right via the distal circumflex as well as the MARTINEZ graft to the LAD through septal perforators. The MARTINEZ graft to the LAD was widely patent with good anastomosis and diffuse disease seen in the deering LAD distal to the insertion point as much as 70% in a small caliber vessel. Retrograde filling more proximally provide a blood flow to the posteriorly directed diagonal branch that had as much as the 75% to 80% obstruction. The proximal portion diagonal branch had a 65% obstruction as well. The 3-pedicled radial artery graft to the posterior descending artery had a 65% to 70% proximal lesion followed by a 99% mid lesion. That vessel underwent intervention with balloon angioplasty and placement of a 2.25 x 24 mm long Promus PREMIER drug-eluting stent in the mid segment and a 2.5 x 16 mm long Promus PREMIER drug-eluting stent in the proximal portion post dilated to 2.85 mm. The patient's last echocardiogram was from 02/02/15 showing an EF of approximately 50% with paradoxical septal motion from postop state. There was abnormal diastolic filling consistent with impaired relaxation and the left atrium was mildly dilated. A patent foramen ovale was not demonstrated with color or agitated contrast. There was trace aortic regurgitation and trace-to- mild mitral regurgitation, trace-to- mild tricuspid regurgitation, trace-to- mild pulmonic regurgitation. Compared to the prior study of 08/27/14, the mitral regurgitation was less. The aortic root and ascending aorta dilatation, which were mild, was new. Of note, the patient had been hospitalized for slow heart rates back in February as well as with melena. GI did see him in consultation and recommended him having upper endoscopy performed once the bradycardia improved. It does not appear that he underwent that test. He actually was given pantoprazole and remained on his aspirin and clopidogrel given his history of multiple strokes and being that he was on that medication from his neurologist up at [facility] in [place]. PAST MEDICAL HISTORY: Includes also chronic renal insufficiency. Initially it was felt that this is due to his prostate issue, but he has had an indwelling Joe catheter and with the indwelling Joe catheter looking at all of his kidney function since February, it has all been in the range of a low of 3.1 up to a high of 4.4. Clearly, he has some degree of chronic renal insufficiency with an estimated GFR today of 15.8. Other medical problems include hypertension, hyperlipidemia. The history of peripheral vascular disease involving his head with brain stent placed in 2009. He has a history of a patent foramen ovale that reportedly was closed percutaneously, although I do not have the report of that. He has sleep apnea as well. He has a history of diabetes and history of gastroesophageal reflux. He also has a history of benign prostatic hypertrophy and also has a history of suspected seizures. PAST SURGICAL HISTORY: Includes appendectomy, left tendon knee repair. MEDICATIONS: Include: 1. Buspirone 10 mg twice a day. 2. Amlodipine 10 mg twice a day. 3. Vitamin B complex daily. 4. Flomax 0.4 mg in the evening. 5. Rosuvastatin 20 mg a day. 6. Pantoprazole 40 a day. 7. [place]-3 one capsule 3 times a day. 8. Sublingual nitroglycerin. 9. Metoprolol tartrate 25 mg twice a day when I last saw him in the office. At that time, I had not increased him to 50 mg a day but the hospitalist H and P suggests that he is on 50 now. 10. Metformin 500 twice a day. 11. Mag ox 400 mg daily. 12. Lisinopril 5 mg a day. 13. Isosorbide mononitrate. They have it listed on the hospitalist note of 240 mg a day. I have him listed as 120 mg a day. 14. Lasix 40 mg a day. 15. Finasteride 5 mg a day. 16. Plavix 75 mg a day. 17. Aspirin 325 mg once a day. ALLERGIES: SULFAMETHOXAZOLE/TRIMETHOPRIM, for which he develops a rash. FAMILY HISTORY: Includes coronary artery disease with both mother and his father. SOCIAL HISTORY: He lives with his , Malka who is his healthcare proxy. He currently does not smoke. He occasionally drinks alcohol. He is on disability. REVIEW OF SYSTEMS: As per the H and P with no change. PHYSICAL EXAM: When I see him reveals a pleasant, albeit slightly confused gentleman and that he states he feels confused, in no acute distress. Vital Signs: Reveal blood pressure 165/71, pulse is 70 and regular, respirations 18, O2 saturation 96% on room air, temperature is 98.0. Neck is supple. I do not appreciate bruits on the right. There is questionable slight bruits on the left. Conjunctivae are slightly pale. Sclerae are clear. Lungs reveal no accessory muscle usage. There is no active rales, rhonchi, or wheezes. Heart reveals no visible heaves, no palpable heaves or thrills noted. Normal S1, S2. Question of an S4 gallop is appreciated. I cannot appreciate a significant systolic or diastolic murmur. Question of a soft systolic murmur at the left lower sternal border is raised. Abdomen is obese, soft, nontender. Extremities have no significant clubbing, cyanosis, or steven pitting edema. Pulses are intact. Neuro: The patient seems alert and oriented but states he feels confused at times and has difficult pinning down the questions. Musculoskeletal: He moves all extremities appropriate. Psychological: The patient appears to be slightly distant in nature. DIAGNOSTIC STUDIES/LAB DATA: Laboratory results to date reveal from this morning a sodium 135, potassium 6.2, chloride 111, bicarb 19, BUN and creatinine is 68 and 3.85, sugar is 119. Looking at his cardiac enzymes, he presented with a troponin of 0.06 asking for the total CPK and MB, they were 55 and 2.5 on that sample. Repeat troponin is 0.09 with a total CPK of 55 and MB of 2.7 and the troponin third one was 0.09 with a total CPK of 52 and MB of 3.1. Triglycerides are 457, total cholesterol 176, LDL 67, HDL 33. Hemoglobin and hematocrit were 9.3 and 27 with a platelet count of 168,000 and white count 8900. Electrocardiogram on admission revealed sinus rhythm, heart rate 82, ND interval 0.20, first-degree AV block, QRS is 0.10, QT 0.36, axis is +59 degrees. There was mild ST segment depression in I and slight T-wave inversion in aVL with upsloping ST segments that were minimally depressed in V5 and V6. Repeat EKG done on 04/15/18 at 12:[address] the mild ST segment depression in I noted with the T-wave inversion in aVL noted and there was less scooping in V5 and V6. Repeat EKG from this morning at 5:[address] segment depression in lead I and T-wave is now inverted in aVL and there is slight downsloping in V6. Chest x-ray report showed no active disease. OVERALL ASSESSMENT: Rahul presents now with an episode of angina pectoris that occurred initially after walking, but then came back 20 minutes later at rest. His troponin is mildly abnormal and his CPKs have not risen significantly at all. The MB showed a minimal rise, but not getting out of the normal range. He is known to have severe multivessel disease, small caliber in nature and clearly the risk of proceeding with cardiac catheterization given his renal insufficiency at this point would clearly potentially lead to dialysis. He is too confused to even approach that discussion. We will discuss this with his and in the meantime, we will get an echocardiogram. If his LV function is fairly well preserved, consideration could be made towards trying a Lexiscan stress test to define the amount of myocardial in jeopardy and see if it would warrant proceeding with this. We will discuss more of this with his when she presents. For now, we will continue with medical management as we are doing. Thank you very much for asking us to see him. We will follow him along with you. All of this was discussed with Dr. Perez, the patient's hospitalist. [id number]/[facility] #: [id number] [facility] HOSPITALPrakash
[2018-04-15] MEDS ORDERED: Tamsulosin CAP* 0.4 MG PO SCH (21:00)
[2018-04-15] MEDS: Heparin VIAL(*) 5000 UNITS/ML VIAL (FIVE THOUSAND) SUBCUT SCH (22:14)
[2018-04-16] MEDS: Heparin VIAL(*) 5000 UNITS/ML VIAL (FIVE THOUSAND) SUBCUT SCH ×2 (06:27→14:04)
[2018-04-16 07:09] LABS: EGFR Non-African American 17.8 (>60)
[2018-04-16] MEDS ORDERED: Regadenoson* 0.4 MG/5 ML SYRINGE ONE (07:59)
[2018-04-16] MEDS ORDERED: Aminophylline IV* 25 MG/ML 10 ML VIAL ONE (07:59)
[2018-04-16] MEDS ORDERED: LORazepam INJ* 2 MG/ML 1 ML VIAL ONE (08:22)
[2018-04-16] MEDS: Aspirin TAB* 325 MG PO SCH (08:55)
[2018-04-16] MEDS: CMCS:Pantoprazole TAB (NF) 40 MG TAB PO SCH (08:55)
[2018-04-16] MEDS: Magnesium Oxide TAB* 400 MG PO SCH (08:55)
[2018-04-16] MEDS: Metoprolol Tartrate TAB* 25 MG PO SCH (08:55)
[2018-04-16] MEDS: Isosorbide Mononitrate ER TAB* 60 MG PO SCH (08:55)
[2018-04-16] MEDS: Finasteride TAB* 5 MG PO SCH (08:56)
[2018-04-16] MEDS: Clopidogrel TAB* 75 MG PO SCH (08:56)
[2018-04-16] MEDS: busPIRone TAB* 10 MG PO SCH (08:56)
[2018-04-16] MEDS ORDERED: Atorvastatin* 40 MG TAB PO SCH (09:00)
[2018-04-16] MEDS ORDERED: amLODIPine TAB* 5 MG PO SCH ×3 (09:00→21:00)
[2018-04-16] MEDS: Insulin LISPRO* 1 UNITS UNIT SUBCUT SCH ×6 (09:03→18:19)
--- NOTE | 2018-04-16 10:43 | RAD ---
HISTORY: Chest pain, shortness of breath, hypertension and hyperlipidemia, obesity, diabetes, COMPARISONS: August 27, 2014 TECHNIQUE: A 1 day stress/rest myocardial perfusion study was performed, with pharmacologic stress. The stress portion was monitored by Dr. Hannon. Gated SPECT imaging was performed, with CT-based attenuation correction DOSE: Stress: Technetium 99m tetrofosmin, 25.8 millicuries, injected at 8:29 AM on April 16, 2018 Rest: Technetium 99m tetrofosmin, 10.1 millicuries, injected at 6:55 AM on April 16, 2018 Pharmacologic agent: Lexiscan FINDINGS: CARDIAC MONITORING: Baseline EKG abnormalities preclude accurate assessment for ischemia. EF: 45% TID: 0.87 MOTION: There is septal dyskinesia. PERFUSION: On the polar maps, there is a small fixed defect of the lateral wall. There are no definite reversible defects to suggest ischemia. OTHER: None IMPRESSION: DECREASED EJECTION FRACTION WITH SEPTAL DYSKINESIA. ASSESSMENT: INTERMEDIATE RISK. Based on imaging criteria from ACC/AHA 2002. Guideline Update for the Management of Patient's with Chronic Stable Angina, table 23. Noninvasive Risk Stratification. CPT II Codes: 3570F
[2018-04-16 17:18] VITALS: BP 146/77
--- NOTE | 2018-04-17 11:31 | DS ---
CC: Dr. Caban; Dr. Antelmo Hodgson, [facility] Nephrology Department , phone [phone]; Dr. Hannon * DISCHARGE SUMMARY: DATE OF ADMISSION: 04/15/18 DATE OF DISCHARGE: 04/16/18 PRIMARY CARE PROVIDER: Dr. Caban. DISCHARGE DIAGNOSIS: Chest pain with mild indeterminate troponin at 0.09 at its peak in a patient whose cardiac stress test did not show any reversible ischemia. SECONDARY DIAGNOSES: 1. History of hyperkalemia. 2. History of chronic kidney disease, stage 3, with worsening noted this hospital stay. 3. History of diabetes. 4. History of coronary artery disease, status post bypass followed by stenting into one of the radial artery grafts in 2013. 5. Hyperlipidemia. 6. Hypertension. 7. History of cerebrovascular accidents. The patient has difficulty word finding and that is chronic due to his ischemic strokes in the past. 8. History of percutaneous closure of patent foramen ovale. 9. Appendectomy. 10. Left tendon knee repair. 11. Gastroesophageal reflux disease. 12. Benign prostatic hypertrophy, now with indwelling Joe catheter, followed by Dr. Fleming. In the process of being cleared for TURP. 13. History of suspected seizures. 14. Obstructive sleep apnea. 15. History of bradycardia. MEDICATIONS AT DISCHARGE: Changes in the medications include followin. Lisinopril was discontinued. 2. Norvasc increased from 10 mg in the morning and 5 mg at night to 10 mg b.i.d. 3. The patient's metformin was held due the patient's renal failure. 4. The patient also was started on a new medication patiromer 8.4 g daily. The remaining medications are unchanged and include: 1. Vitamin C 1000 mg daily. 2. Aspirin 325 mg daily. 3. BuSpar 10 mg b.i.d. 4. Vitamin D3 2000 units daily. 5. Celexa 40 mg daily. 6. Plavix 75 mg daily. 7. Proscar 5 mg daily. 8. Lasix 40 mg daily. 9. Imdur 240 mg daily. 10. Mag-Ox 400 mg daily. 11. Metoprolol succinate 25 mg b.i.d. 12. Multivitamin 1 tablet daily. 13. Nitroglycerin 0.4 mg every 5 minutes for chest pain. 14. [place]-3 fatty acids fish oil 1 capsule 3 times a day. 15. Protonix 40 mg daily. 16. Crestor 20 mg daily. 17. Flomax 0.4 mg daily. 18. Vitamin B complex 1 tablet daily. FOLLOWUP LABS: At discharge, the patient recommended to follow up with basic metabolic panel in approximately 3 to 4 days. DISCHARGE FOLLOWUP: The patient is recommended to follow up with Dr. Caban within 4 to 7 days. The patient has a scheduled appointment with Dr. Hodgson at [facility], who is the patient's pilot control operator, on 04/18/18 at 11 a.m. LABORATORY DATA AND STUDIES PERFORMED DURING THE HOSPITAL STAY: Included on , sodium of 136, potassium 5.2, chloride 108, carbon dioxide 21, BUN 65, creatinine 3.47. At admission on 04/15/18, the patient's sodium was 135, potassium was 6.2, chloride 111, carbon dioxide 19, BUN 68, creatinine 3.85. The patient's troponin ranged from 0.06 to 0.09. Nuclear medicine cardiac stress test documented on 04/16/18, impression: "Decreased ejection fraction with septal dyskinesia. On the polar maps, there is a small fixed defect of the lateral wall. There are no definitive reversible defects to suggest ischemia. EF was 45%." The patient's last echocardiogram obtained on 04/15/18 showed EF of 55% to 60% with ventricular septal wall motion with postoperative appearance. Paradoxical septal motion was seen. There was abnormal left ventricular diastolic filling observed consistent with impaired relaxation. There was trace aortic regurgitation and mild mitral regurgitation. There was moderate pulmonic regurgitation and mild dilatation of the ascending aorta. If anything, the LV systolic function is slightly better, was 50% in the past. The degree of mitral regurgitation is slightly increased. It was trace, now mild. The pulmonic regurgitation is increased, it was trace, now mild. CONSULTATIONS DURING THE HOSPITAL STAY: Included Dr. Hannon from Cardiology. HOSPITALIZATION COURSE: Siva Watson is a 63-year-old male with history of chronic kidney disease, diabetic, problems with expressive aphasia due to strokes in the past, who presented to the hospital complaining of chest pain. The patient stated that he was walking on the incline to check on his chickens and he developed a chest pain on the way back. He had prior episodes of chest pain for which he had been followed with Dr. Hannon and had been taking nitro in the past. Dr. Hannon saw the patient in consultation and stated that although the patient's troponin is at 0.09, the patient does have significant increase in creatinine. Cardiac catheterization would likely cause acute renal failure. At this point, Dr. Hannon recommended cardiac stress test, which was obtained on 04/16/18 and showed no new reversible ischemia. The patient's EF was noted to be slightly low at 45%, although according to the echocardiogram, the patient's EF was noted to be 50% to 55%. Please note that the patient was hyperkalemic at admission and at this point he was still on JULIANA inhibitor, which was held as well as metformin that was held. At discharge, I spoke with Dr. Hodgson, the patient's pilot control operator, who will see the patient in a couple of days for followup. Dr. Hodgson recommended for the patient to be prescribed potassium binder patiromer. His lisinopril was also held. The patient is to follow up with Dr. Hodgson as above mentioned on Saturday, . I believe that the patient likely will be able to get lab work at [facility] where he is going to be seen. Otherwise, he does have a requisition for basic metabolic panel to be followed up in 3 to 4 days. At the time of discharge, the patient was ambulating freely without episodes of chest pain when ambulating. He is going to be discharged home and also was requested to follow up with his primary care provider in 4 to 7 days. PHYSICAL EXAMINATION: At the time of discharge, blood pressure of 145/84, heart rate of 54 and regular, respiratory rate 17, oxygen saturation 97% on room air, temperature 97.5. General: The patient is a very pleasant 63-year- old male, who is in no acute distress. The patient is alert and oriented x3. The patient has expressive aphasia occasionally, but is able to make his needs known. HEENT: Head atraumatic, normocephalic. Eyes: Pupils are equal, reactive to light and accommodation. Oropharynx is clear. Mucosa moist. Neck : Supple. No JVD. No bruits bilaterally. Cardiovascular: Regular rate and rhythm. No murmur. Respiratory: Clear to auscultation bilaterally. Abdomen: Soft, nontender. Bowel sounds are present in all 4 quadrants. Extremities: There is no edema. Pulses are 2+ bilaterally. No clubbing or cyanosis. Neuro Evaluation: Speech is clear. Cranial nerves II through XII are grossly intact. Motor strength is 5/5 bilaterally. The patient occasionally has difficulty word finding, which is chronic. Please also note that the patient's Norvasc was increased from previous dose to 10 mg b.i.d. as per Dr. Hannon's recommendation. Please also note that the patient's stool occult blood documented on 03/12/18 and 04/15/18, both of them were negative, despite that the patient complained of melanotic stools prior. This is a short summary of the patient's hospitalization. Please refer to further medical records for details. TIME SPENT: Approximately 45 minutes was spent on the patient's discharge. [id number]/[facility] #: [id number] MTDD
== END 2018-04-16 18:49 | disposition home or self-care (01) ==
LOC: ED 22:32 → MEDTELE 04-15 00:43
PROVIDERS: ADMIT Pediatrics; ATTEND Internal Medicine
DX: R07.9 Chest pain, unspecified (principal); M25.519 Pain in unspecified shoulder; E87.5 Hyperkalemia; I12.9 Hypertensive chronic kidney disease with stage 1 through stage 4 chronic kidney disease, or unspecified chronic kidney disease; E11.22 Type 2 diabetes mellitus with diabetic chronic kidney disease; N18.3 Chronic kidney disease, stage 3 (moderate); I25.10 Atherosclerotic heart disease of native coronary artery without angina pectoris; Z95.5 Presence of coronary angioplasty implant and graft; E78.5 Hyperlipidemia, unspecified; Z86.73 Personal history of transient ischemic attack (TIA), and cerebral infarction without residual deficits; Z87.74 Personal history of (corrected) congenital malformations of heart and circulatory system; K35.2 Acute appendicitis with generalized peritonitis; N40.0 Benign prostatic hyperplasia without lower urinary tract symptoms; G47.33 Obstructive sleep apnea (adult) (pediatric); Z86.79 Personal history of other diseases of the circulatory system; Z79.82 Long term (current) use of aspirin; E66.9 Obesity, unspecified
CPT/HCPCS: 36415; 71045; 78452; 80048; 80051; 80053; 80061; 82272; 82550; 82553; 83036; 83721; 84484; 85025; 93005; 93017; 93306; 96374; 96375; 99282; A9270-GY; A9502; G0378; J0280; J1644; J1650; J2060; J2785

== ENCOUNTER 2018-12-16 12:33 | Emergency (ER) | payer MEDICARE ==
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
[2018-12-16 12:48] VITALS: BP 144/75
== END 2018-12-16 13:08 | disposition home health service (06) ==
LOC: UCEAST 12:33
DX: R04.0 Epistaxis (principal); Z79.01 Long term (current) use of anticoagulants; I25.10 Atherosclerotic heart disease of native coronary artery without angina pectoris; Z95.5 Presence of coronary angioplasty implant and graft; Z95.1 Presence of aortocoronary bypass graft; Z88.2 Allergy status to sulfonamides
CPT/HCPCS: 99212; G0463

== ENCOUNTER 2018-12-16 13:38 | Emergency (ER) | payer MEDICARE ==
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
[2018-12-16 15:06] LABS: ABS Basophils 0 10^3/ul (0-0.2); ABS Eosinophils 0.2 10^3/ul (0-0.6); ABS Lymphocytes 1.2 10^3/ul (1.0-4.8); ABS Monocytes 0.4 10^3/ul (0-0.8); ABS Neutrophils 5.3 10^3/ul (1.5-7.7); ABS Nucleated RBC 0 10^3/ul; Eosinophil % 2.3 %; Hematocrit 29 % (42-52); Hemoglobin 9.8 g/dl (14.0-18.0); Lymphocyte % 16.5 %; Mean Corpuscular HGB Conc 34 g/dl (31-36); Mean Corpuscular Hemoglobin 27 pg (27-31); Mean Corpuscular Volume 81 fL (80-94); Mean Platelet Volume 9.1 fL (7.4-10.4); Nucleated Red Blood Cells % 0; Platelet Count 189 10^3/ul (150-450); Red Blood Count 3.61 10^6/ul (4.00-5.40); Red Cell Distribution Width 16 % (10.5-15); White Blood Count 7.1 10^3/ul (3.5-10.8)
[2018-12-16 15:16] LABS: INR 0.93 (0.77-1.02)
[2018-12-16 15:42] VITALS: BP 148/71
== END 2018-12-16 15:41 | disposition home or self-care (01) ==
LOC: ED 13:38
DX: R04.0 Epistaxis (principal); N18.9 Chronic kidney disease, unspecified; D64.9 Anemia, unspecified; K21.9 Gastro-esophageal reflux disease without esophagitis; G47.30 Sleep apnea, unspecified; F41.9 Anxiety disorder, unspecified; F32.9 Major depressive disorder, single episode, unspecified; Z86.73 Personal history of transient ischemic attack (TIA), and cerebral infarction without residual deficits; Z85.828 Personal history of other malignant neoplasm of skin
CPT/HCPCS: 36415; 85025; 85610; 85730; 86850; 86900; 86901; 99282

== ENCOUNTER 2019-01-27 05:05 | Inpatient (IN) | payer MEDICARE ==
[2019-01-27] MEDS ORDERED: Furosemide IV* 10 MG/ML VIAL (40 MG) IV SLOW PU ONE (05:31)
[2019-01-27] MEDS ORDERED: Albuterol/Ipratropium NEB.SOL* Albuterol 2.5 MG/Ipratropium 0.5 MG 3 ML INH ONE (05:32)
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
[2019-01-27] MEDS ORDERED: Albuterol 2.5 MG/3 ML NEB.SOL* (0.083%) INH ONE (05:57)
[2019-01-27] MEDS: Albuterol 2.5 MG/3 ML NEB.SOL* (0.083%) INH SCH ×3 (06:03→10:20)
[2019-01-27 06:06] LABS: ABS Basophils 0 10^3/ul (0-0.2); ABS Eosinophils 0.2 10^3/ul (0-0.6); ABS Monocytes 0.4 10^3/ul (0-0.8); ABS Neutrophils 6.2 10^3/ul (1.5-7.7); ABS Nucleated RBC 0 10^3/ul; Eosinophil % 3.2 %; Hematocrit 29 % (42-52); Hemoglobin 9.5 g/dl (14.0-18.0); Lymphocyte % 12.4 %; Mean Corpuscular HGB Conc 33 g/dl (31-36); Mean Corpuscular Hemoglobin 27 pg (27-31); Mean Corpuscular Volume 81 fL (80-94); Mean Platelet Volume 8.9 fL (7.4-10.4); Nucleated Red Blood Cells % 0; Platelet Count 165 10^3/ul (150-450); Red Blood Count 3.53 10^6/ul (4.00-5.40); Red Cell Distribution Width 15 % (10.5-15); White Blood Count 7.8 10^3/ul (3.5-10.8)
[2019-01-27 06:16] LABS: Activated Partial Thrombo Time 30.6 seconds (26.0-36.3); INR 0.94 (0.77-1.02)
[2019-01-27 06:24] LABS: ALT 36 U/L (7-52); AST 26 U/L (13-39); Albumin 3.5 g/dL (3.2-5.2); Albumin/Globulin Ratio 1.2 (1-3); Alkaline Phosphatase 163 U/L (34-104); Anion Gap 10 mmol/L (2-11); BUN/Creatinine Ratio 13.1 (8-20); Blood Urea Nitrogen 79 mg/dL (6-24); C Reactive Protein 24.18 mg/L (<8.01); CO2 Carbon Dioxide 19 mmol/L (22-32); Calcium 8.2 mg/dL (8.6-10.3); Chloride 109 mmol/L (101-111); EGFR African American 11.4 (>60); EGFR Non-African American 9.4 (>60); Globulin 2.9 g/dL (2-4); Glucose 128 mg/dL (70-100); Potassium 4.3 mmol/L (3.5-5.0); Sodium 138 mmol/L (135-145); Total Protein 6.4 g/dL (6.4-8.9)
[2019-01-27 06:31] LABS: Troponin I 0.19 ng/mL (<0.04)
[2019-01-27] MEDS ORDERED: Ondansetron INJ* 2 MG/ML VIAL IV ONE (06:32)
[2019-01-27] MEDS ORDERED: Morphine VIAL* 10 MG/ML 1 ML VIAL IV ONE ×2 (06:32→08:26)
[2019-01-27] MEDS ORDERED: Nitro 2% OINT* (Nitroglycerin) 1 INCH/PAK PAK TOPICAL ONE (06:33)
[2019-01-27] MEDS ORDERED: Furosemide IV* 10 MG/ML VIAL (40 MG) IV ONE (06:34)
[2019-01-27] MEDS ORDERED: Aspirin 81 mg CHEW TAB* 81 MG TAB.CHEW PO ONE (08:54)
[2019-01-27] MEDS ORDERED: Nitroglycerin TAB 0.4 MG* 0.4 MG TAB SL PRN (08:56)
[2019-01-27] MEDS ORDERED: cloNIDine 0.3 MG PATCH* 0.3 MG/24 HR 7 DAY PATCH TRANSDERM SCH (09:00)
[2019-01-27] MEDS ORDERED: Heparin VIAL(*) 5000 UNITS/ML VIAL (FIVE THOUSAND) ONE (09:13)
[2019-01-27] MEDS ORDERED: Heparin DRIP 25,000 UNITS(*) 25,000 UNITS/500 ML BAG ONE (09:13)
[2019-01-27] MEDS: Heparin DRIP 25,000 UNITS(*) 25,000 UNITS/500 ML BAG IV SCH (09:19)
[2019-01-27 09:21] LABS: Troponin I 0.16 ng/mL (<0.04)
[2019-01-27] MEDS: Atorvastatin* 40 MG TAB PO SCH (10:23)
[2019-01-27] MEDS: busPIRone TAB* 5 MG PO SCH ×2 (10:23→20:17)
[2019-01-27] MEDS: Magnesium Oxide TAB* 400 MG PO SCH (10:23)
[2019-01-27] MEDS: Metoprolol Succinate XL TAB* 25 MG PO SCH ×2 (10:23→20:17)
[2019-01-27] MEDS: Sertraline* 50 MG TAB PO SCH (10:24)
[2019-01-27] MEDS: Clopidogrel TAB* 75 MG PO SCH (10:24)
[2019-01-27] MEDS: Isosorbide Mononitrate ER TAB* 60 MG PO SCH (10:24)
[2019-01-27] MEDS: amLODIPine TAB* 5 MG PO SCH ×2 (10:24→20:17)
[2019-01-27] MEDS: MinoXIDil TAB* 2.5 MG TAB PO SCH ×2 (10:25→20:57)
[2019-01-27 12:28] LABS: Troponin I 0.22 ng/mL (<0.04)
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
[2019-01-27 16:02] LABS: Troponin I 0.66 ng/mL (<0.04)
[2019-01-27] MEDS: Finasteride TAB* 5 MG PO SCH (17:48)
[2019-01-27] MEDS: Tamsulosin CAP* 0.4 MG PO SCH (17:48)
[2019-01-27 19:07] LABS: Troponin I 1.17 ng/mL (<0.04)
[2019-01-27] MEDS: Terazosin CAP* 5 MG PO SCH (20:17)
--- NOTE | 2019-01-27 21:52 | CONS ---
CC: Dr. Caban; Dr. Lg Beltre; Dr. Byers * INTERVENTIONAL CARDIOLOGY CONSULT NOTE: DATE OF CONSULT: 01/27/19 PRIMARY CARE PHYSICIAN: Dr. Caban. PARTITION SETTER: Dr. Lg Beltre. FOCUS PULLER: Dr. Byers. HISTORY OF PRESENT ILLNESS: A 63-year-old male with CKD stage 5 and known coronary artery disease, admitted with acute onset of shortness of breath and chest pain. He has an extensive past cardiac history. In 2002, he underwent bypass surgery in [place] with MARTINEZ to the LAD and a free left radial artery graft to the RPDA. At that time, apparently the posterolateral and ramus were thought to be too small to graft even though they were diseased. In 2013, he had angina class 3 and inferior ischemia, cath by Dr. Hannon revealed patent MARTINEZ to the LAD, 40% distal left main stenosis, 90% proximal LAD stenosis, 80% stenosis of the not grafted ramus, 40% proximal circumflex stenosis, and occlusion of the RCA. The MARTINEZ supplied the LAD, the left free radial artery bypass graft supplied the RPDA, but had a moderate proximal stenosis with a high -grade mid stenosis which was stented with a 2.25 x 24 drug-eluting stent in the mid portion and a 2.5 x 16 drug-eluting stent proximally. RCA distal to PDA was occluded and filled by L to R collaterals from Cx. LV function was low limit of normal. In retrospect, he has had episodes of class 2 angina since some time in the fall. He was admitted here on 01/20/19 with a non-ST elevation infarct with a peak troponin of 5.65 with a typical rise and fall. His creatinine was 5.49 with GFR of 10.5. He has chronic hypertriglyceridemia precluding measurement of LDL. On 01/20/19, his hemoglobin was 9.7 with hematocrit 29. He has had intermittent thrombocytopenia with platelet counts as low as 121,000 on . He was considered to be a very high risk for contrast-induced nephropathy requiring dialysis, an attempt was made to risk stratify with imaging which revealed by report a moderate inferoapical zone of ischemia, but my review of the images, I think this is a small zone. In reviewing his coronary angiograms , it is consistent with his RPDA distribution which is quite small. He was discharged on 01/24/19 with a weight of 239 pounds. The machine weight had been 243 pounds. 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 Last night, he developed fairly acute onset of shortness of breath with wheezing which he estimates lasted about 2 hours before he started to get precordial chest discomfort with some radiation into his arm. He ultimately presented in the ER and became pain-free. His admission weight today is 236 pounds 9.6 ounces. He has noted some edema lately. PAST MEDICAL HISTORY: 1. Anemia, apparently of chronic disease with history of thrombocytopenia, unknown etiology. 2. Obstructive sleep apnea. 3. Prior CVA with memory impairment. 4. CKD stage 5. 5. Prior PFO closure. 6. Diabetes type 2. 7. Hyperlipidemia. 8. According to the record, GI bleed in February 2018, although he reports that this was due to hemoptysis from chronic recurring nosebleeds. At that time, he also had bladder outlet obstruction with 1500 cc of residual urine and was discharged with a catheter as well as tamsulosin and finasteride. He was started on pantoprazole for possible GI bleeding. PREHOSPITAL MEDICATIONS: Per the MAR: 1. Clonidine 0.3 mg weekly. 2. BuSpar 10 mg b.i.d. 3. Norvasc 10 b.i.d. 4. Hytrin 5 mg at bedtime. 5. Flomax 0.4 q.p.m. 6. Zoloft 50 mg daily. 7. Crestor 20 mg daily. 8. Nitroglycerin 0.4 sublingual p.r.n. 9. Minoxidil 2.5 b.i.d. 10. Toprol-XL 37.5 b.i.d. 11. Magnesium oxide. 12. Imdur 240 mg daily. 13. Proscar 5 mg daily. 14. Pepcid 20 mg every other day. 15. Plavix 75 mg daily. 16. Aspirin 325 daily. 17. Albuterol inhaler. ALLERGIES: TRIMETHOPRIM/SULFA. SOCIAL HISTORY: He is . He is a nonsmoker. REVIEW OF SYSTEMS: General: He is fairly frail, has limited exercise tolerance because of dyspnea and occasional exertional chest pain. 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 GI: No documented GI bleed with an episode of possible melena in the setting of iron therapy at the time when patient describes severe nosebleeds. Malignancy negative. Circulatory: No claudication. Remainder all negative. PHYSICAL EXAM: His BP in the ER was 181/91 and 179/92 with a heart rate in the 60 to 70s. Currently, he is comfortable in bed, has a Ryan-Santana respiration , he is sitting with his bed at about 40 degrees. His lungs revealed decreased breath sounds at both bases with rales. His JVP is elevated at 16 without a clear Kussmaul sign. Carotids are palpable and normal. Cardiac Exam: I cannot feel the apical impulse, he has a stable sternum. Rhythm is regular. He does have a systolic murmur which is difficult to characterize. I do not hear a clear gallop. Abdomen is obese, nontender with bowel sounds, I cannot feel the aorta or the liver edge. Femoral pulses are palpable. Extremities: His left radial is absent post radial artery harvest, right radial is 2+. His pedals are palpable. He has 1+ pitting edema bilaterally. DIAGNOSTIC STUDIES/LAB DATA: His admission BMP, BUN is 79 with a creatinine of 6.03. GFR 9.4. Blood sugar 128. His troponin 0.19 and 0.16, but then re- elevated to 0.22 and 0.66. BNP is high at 816. EKG now shows more inferolateral ST- depression than was present last admission. On the last tracing, this has improved. Chest x-ray from this morning, per my review, shows cardiomegaly, previous bypass wires, and congestive heart failure with vascular redistribution. IMPRESSION: Non-ST elevation infarct. This maybe a type 2 infarct in the setting of decompensated heart failure as evidenced by high BNP, physical exam, and chest x- ray documenting CHF. Per history, he has likely had volume gain for the past 2 months as his renal function has decreased, presumably he has lost muscle mass as his weight has not risen. He is currently not compensated. He has a fairly small zone of ischemia in the PDA distribution, which is supplied by a free radial artery graft which is small, was stented in 2013 with a 2.25 and 2.5 drug- eluting stent. Invasive evaluation would mandate contrast even if limited with significant risk of his progressing to need for dialysis more quickly. Currently, he is apparently still ambivalent about dialysis and is still in conversation with Dr. Byers. In addition, his coronary anatomy showed significant stenosis of a ramus branch which was too small to bypass and is too small for intervention, that is not amenable to revascularization. In addition, his distal left main disease may have progressed, though not suggested by MPI, which obviously would be a high-risk scenario. Until the decision is made regarding dialysis, we will continue to treat medically, he needs to have preload reduced, he does make urine. I will order Lasix. He is at increased risk for PCI with dual antiplatelet therapy by virtue his renal insufficiency, his pre-existing anemia and thrombocytopenia and history of prior possible GI bleed versus hemoptysis. Thanks for the consultation. I will follow with you as needed. [id number]/[facility] #: [id number] KIKI
[2019-01-27 23:01] LABS: Troponin I 1.94 ng/mL (<0.04)
[2019-01-27] MEDS: Heparin VIAL(*) 5000 UNITS/ML VIAL (FIVE THOUSAND) IV SCH (23:07)
--- NOTE | 2019-01-27 23:42 | PN ---
Progress Note - Progress Note Date of Service: 01/27/19 Note: Patient having 2 second pauses and bradycardia. Asymptomatic. Will d/c amlodipine.
[2019-01-28] MEDS: Heparin VIAL(*) 5000 UNITS/ML VIAL (FIVE THOUSAND) IV SCH ×3 (06:35→22:06)
[2019-01-28 08:18] LABS: Troponin I 2.11 ng/mL (<0.04)
[2019-01-28] MEDS ORDERED: Furosemide TAB* 40 MG PO SCH (09:00)
[2019-01-28] MEDS ORDERED: Aspirin EC TAB* 325 MG PO SCH (09:00)
[2019-01-28] MEDS: Isosorbide Mononitrate ER TAB* 60 MG PO SCH (09:14)
[2019-01-28] MEDS: Clopidogrel TAB* 75 MG PO SCH (09:15)
[2019-01-28] MEDS: Aspirin EC TAB* 81 MG TAB.EC PO SCH (09:15)
[2019-01-28] MEDS: Metoprolol Succinate XL TAB* 25 MG PO SCH ×2 (09:15→20:48)
[2019-01-28] MEDS: Furosemide IV* 10 MG/ML 10 ML VIAL (100 MG) IV SCH (09:15)
[2019-01-28] MEDS: busPIRone TAB* 5 MG PO SCH ×2 (09:15→20:48)
[2019-01-28] MEDS: Atorvastatin* 40 MG TAB PO SCH (09:15)
[2019-01-28] MEDS: Sertraline* 50 MG TAB PO SCH (09:15)
[2019-01-28] MEDS: Magnesium Oxide TAB* 400 MG PO SCH (09:15)
[2019-01-28] MEDS: MinoXIDil TAB* 2.5 MG TAB PO SCH ×2 (09:16→20:48)
[2019-01-28 12:20] LABS: BUN/Creatinine Ratio 14.3 (8-20); Calcium 7.9 mg/dL (8.6-10.3); EGFR Non-African American 10.7 (>60); Magnesium 2.3 mg/dL (1.9-2.7); Potassium 4.2 mmol/L (3.5-5.0)
[2019-01-28] MEDS ORDERED: EPOETIN ALFA-EPBX * 10,000 UNIT/ML VIAL SUBCUT ONE (13:26)
[2019-01-28 15:22] LABS: Troponin I 2.02 ng/mL (<0.04)
[2019-01-28] MEDS: Finasteride TAB* 5 MG PO SCH (16:58)
[2019-01-28] MEDS: Tamsulosin CAP* 0.4 MG PO SCH (16:58)
--- NOTE | 2019-01-28 19:27 | PN ---
Subjective Date of Service: 01/28/19 Interval History: Patient seen and examined. Denies chest pain, no SOB but does appear winded and remains on O2. No n/v, no fevers or chills. Objective Active Medications: Aspirin (Aspirin Ec Tab*) 81 mg PO DAILY [facility] Last Admin: 01/28/19 09:15 Dose: 81 mg Atorvastatin Calcium (Lipitor*) 40 mg PO DAILY [facility] Last Admin: 01/28/19 09:15 Dose: 40 mg Buspirone HCl (Buspar Tab*) 10 mg PO BID [facility] Last Admin: 01/28/19 09:15 Dose: 10 mg Clonidine HCl (Nmrlwrfe-Rwc-1 0.3 Mg Patch*) 0.3 mg TRANSDERM WEEKLY [facility] Clopidogrel Bisulfate (Plavix Tab*) 75 mg PO QAM [facility] Last Admin: 01/28/19 09:15 Dose: 75 mg Finasteride (Proscar Tab*) 5 mg PO QPM [facility] Last Admin: 01/28/19 16:58 Dose: 5 mg Furosemide (Lasix Iv*) 60 mg IV DAILY [facility] Last Admin: 01/28/19 09:15 Dose: 60 mg Heparin Sodium (Porcine) (Heparin Vial(*)) 0 units IV .PER PROTOCOL [facility] Last Admin: 01/28/19 13:28 Dose: 2,000 units Heparin Sodium/Dextrose (Heparin Drip 25,000 Units(*)) 25,000 units in 500 mls @ 0 mls/hr IV PER RATE [facility]; Protocol Last Admin: 01/27/19 09:19 Dose: 20 mls/hr Isosorbide Mononitrate (Imdur Er Tab*) 240 mg PO DAILY [facility] Last Admin: 01/28/19 09:14 Dose: 240 mg Magnesium Oxide (Magox 400 Tab*) 400 mg PO QAM [facility] Last Admin: 01/28/19 09:15 Dose: 400 mg Metoprolol Succinate (Toprol Xl Tab*) 25 mg PO BID [facility] Minoxidil (Loniten Tab*) 2.5 mg PO BID [facility] Last Admin: 01/28/19 09:16 Dose: 2.5 mg Nitroglycerin (Nitroglycerin Tab 0.4 Mg*) 0.4 mg SL Q5M PRN PRN Reason: ANGINA Sertraline HCl (Zoloft*) 50 mg PO DAILY [facility] Last Admin: 01/28/19 09:15 Dose: 50 mg Tamsulosin HCl (Flomax Cap*) 0.4 mg PO QPM [facility] Last Admin: 01/28/19 16:58 Dose: 0.4 mg Terazosin HCl (Hytrin Cap*) 5 mg PO BEDTIME [facility] Last Admin: 01/27/19 20:17 Dose: 5 mg Vital Signs - 8 hr 01/28/19 01/28/19 11:25 15:13 Temperature 98.9 F 98.9 F Pulse Rate 64 66 Respiratory 20 18 Rate Blood Pressure 143/71 141/63 (mmHg) O2 Sat by Pulse 96 95 Oximetry Oxygen Devices in Use Now: Nasal Cannula Appearance: alert, fatigued, NAD Eyes: No Scleral Icterus, PERRLA Ears/Nose/Mouth/Throat: NL Teeth, Lips, Gums, Mucous Membranes Moist Neck: NL Appearance and Movements; NL JVP, Trachea Midline Respiratory: Clear to Auscultation Cardiovascular: NL Sounds; No Murmurs; No JVD, RRR Abdominal: NL Sounds; No Tenderness; No Distention Extremities: No Edema, No Clubbing, Cyanosis Skin: No Rash or Ulcers Neurological: Alert and Oriented x 3 Nutrition: Taking PO's Result Diagrams: 01/27/19 05:58 01/28/19 11:49 Microbiology and Other Data: Microbiology 01/27/19 05:58 Aerobic Blood Culture - Preliminary Blood Venous No Growth Day 1 Anaerobic Blood Culture - Preliminary No Growth Day 1 01/27/19 05:58 Aerobic Blood Culture - Preliminary Blood Venous No Growth Day 1 Anaerobic Blood Culture - Preliminary No Growth Day 1 Assess/Plan/Problems-Billing Assessment: This is a 63 year old male with history of CKD, CAD that was just discharged from [facility] that presented with SOB, wheezing and chest tightness, admitted with NSTEMI and worsening volume overload. - Patient Problems (1) Volume overload Code(s): E87.70 - FLUID OVERLOAD, UNSPECIFIED SNOMED Code(s): 82857432 Comment: - Continue lasix IV, daily weights, I&Os and supplemental O2 - Should start dialysis in presence of reinfarction/NSTEMI (2) Anemia Code(s): D64.9 - ANEMIA, UNSPECIFIED SNOMED Code(s): 179355464 Comment: - Chronic 2/2 CKD (3) Chest pain Code(s): R07.9 - CHEST PAIN, UNSPECIFIED SNOMED Code(s): 88616779 Comment: - Recent NSTEMI and with rising trops again - Consult with Dr. Patel given elevated trops again - High risk to cath given renal dysfunction, will need dialysis, will consult Dr. Byers who knows the patient well (4) Chronic kidney disease, stage IV (severe) Code(s): N18.4 - CHRONIC KIDNEY DISEASE, STAGE 4 (SEVERE) SNOMED Code(s): 080258518 Comment: - Accelerated ESRD that will likely require dialysis during this admission - Will defer to recs by Dr. Byers, consider CVC cath insertion for HD (5) HTN (hypertension) Code(s): I10 - ESSENTIAL (PRIMARY) HYPERTENSION SNOMED Code(s): 19157650 Comment: - Mionoxidil, metoprolol and clonidine patch (6) Non-ST elevation UT (NSTEMI) Code(s): I21.4 - NON-ST ELEVATION (NSTEMI) MYOCARDIAL INFARCTION SNOMED Code(s ): 61220632 Comment: - Nuclear stress at last admission revealed decreased EF ~45% and Mild ischemia at inferior wall - High risk for complete renal failure 2/2 contrast induced nephropathy if he elects to have cardiac cath - Continue plavix - Continue Toprol XL 37.5 mg bid, Imdur 240 mg Daily, Lipitor 40 mg HS - Appreciate cardiology recs (7) Type II diabetes mellitus Comment: - Lispro SS with accuchecks ACHS (8) CAD (coronary artery disease) Code(s): I25.10 - ATHSCL HEART DISEASE OF [place] CORONARY ARTERY W/O ANG PCTRS SNOMED Code(s): 23318258 Comment: - Extensive hx of CABG and stents - Cardiology following - Continue home meds and tele, supportive O2 (9) Full code status Code(s): Z78.9 - OTHER SPECIFIED HEALTH STATUS SNOMED Code(s): 859481309 Status and Disposition: Inpatient, critical. Dispo TBD.
[2019-01-28 20:27] LABS: Troponin I 1.76 ng/mL (<0.04)
[2019-01-28] MEDS: Terazosin CAP* 5 MG PO SCH (20:48)
--- NOTE | 2019-01-28 22:59 | PN ---
PROGRESS NOTE: DATE OF SERVICE: 01/28/19 HISTORY: I was asked to come and speak to Mr. Watson again about the issue of dialysis. He was readmitted because of another non-ST segment elevation myocardial infarction. I spent a long time discussing the case with Dr. Patel. Apparently, he has volume dependent episodes of angina pectoris and one of these precipitated another myocardial infarction. There was the question of proceeding on with cardiac catheterization. Of course, there is the issue of contrast-induced nephrotoxicity worsening his renal function, which is already quite impaired. I discussed these issues with Mr. Watson and his . Mr. Watson was concerned about the issue of quality of life after dialysis. I discussed with him and his the issue of hemodialysis and peritoneal dialysis and the role in the quality of life of each. I discussed with him also the volume and management benefit of peritoneal dialysis as compared to hemodialysis. He reiterated his concern about his living arrangement including his pets as well as the fact that he lives in a trailer. I pointed out the problem of high output cardiac failure that will be attended with the fistula for hemodialysis. I discussed the dietary interventions that would be necessary with each different modality. In all, I spent about 45 minutes between the patient and Dr. Patel in discussing the varying options that we had available. I made a recommendation that we proceed along with peritoneal dialysis after an intermittent course of hemodialysis while we got him ready for peritoneal surgery. He is still not able to make a decision. He is going to discuss this with his again and I will revisit the issue again tomorrow. [id number]/[facility] #: [id number] MTDD
[2019-01-29] MEDS: Heparin DRIP 25,000 UNITS(*) 25,000 UNITS/500 ML BAG IV SCH (02:47)
[2019-01-29] MEDS: Heparin VIAL(*) 5000 UNITS/ML VIAL (FIVE THOUSAND) IV SCH (04:51)
[2019-01-29] MEDS: Isosorbide Mononitrate ER TAB* 60 MG PO SCH (08:47)
[2019-01-29] MEDS: Clopidogrel TAB* 75 MG PO SCH (08:48)
[2019-01-29] MEDS: Atorvastatin* 40 MG TAB PO SCH (08:48)
[2019-01-29] MEDS: busPIRone TAB* 5 MG PO SCH ×2 (08:48→21:41)
[2019-01-29] MEDS: Metoprolol Succinate XL TAB* 25 MG PO SCH ×2 (08:48→21:41)
[2019-01-29] MEDS: Magnesium Oxide TAB* 400 MG PO SCH (08:48)
[2019-01-29] MEDS: Aspirin EC TAB* 81 MG TAB.EC PO SCH (08:49)
[2019-01-29] MEDS: Sertraline* 50 MG TAB PO SCH (08:49)
[2019-01-29] MEDS: Furosemide IV* 10 MG/ML 10 ML VIAL (100 MG) IV SCH (08:50)
[2019-01-29] MEDS ORDERED: Furosemide IV* 10 MG/ML 2 ML VIAL (20 MG) IV ONE (11:02)
[2019-01-29] MEDS: MinoXIDil TAB* 2.5 MG TAB PO SCH ×2 (11:56→21:43)
[2019-01-29] MEDS ORDERED: Iron Sucrose* 20 MG/ML 5 ML VIAL IV PUSH ONE (15:00)
[2019-01-29] MEDS: Finasteride TAB* 5 MG PO SCH (16:14)
[2019-01-29] MEDS: Tamsulosin CAP* 0.4 MG PO SCH (16:14)
--- NOTE | 2019-01-29 17:19 | PN ---
Subjective Date of Service: 01/29/19 Interval History: Patient seen and examined. Appears solemn, not very talkative. Does not want to discuss dialysis as an option. We talked about cardiac optimization and volume status. Denies chest pain, no acute SOB at present, diuresing. Objective Active Medications: Aspirin (Aspirin Ec Tab*) 81 mg PO DAILY [facility] Last Admin: 01/29/19 08:49 Dose: 81 mg Atorvastatin Calcium (Lipitor*) 40 mg PO DAILY [facility] Last Admin: 01/29/19 08:48 Dose: 40 mg Buspirone HCl (Buspar Tab*) 10 mg PO BID [facility] Last Admin: 01/29/19 08:48 Dose: 10 mg Clonidine HCl (Qjknagdc-Xqb-3 0.3 Mg Patch*) 0.3 mg TRANSDERM WEEKLY [facility] Clopidogrel Bisulfate (Plavix Tab*) 75 mg PO QAM [facility] Last Admin: 01/29/19 08:48 Dose: 75 mg Finasteride (Proscar Tab*) 5 mg PO QPM [facility] Last Admin: 01/29/19 16:14 Dose: 5 mg Furosemide (Lasix Iv*) 80 mg IV DAILY [facility] Heparin Sodium (Porcine) (Heparin Vial(*)) 0 units IV .PER PROTOCOL [facility] Last Admin: 01/29/19 04:51 Dose: 2,000 units Isosorbide Mononitrate (Imdur Er Tab*) 240 mg PO DAILY [facility] Last Admin: 01/29/19 08:47 Dose: 240 mg Magnesium Oxide (Magox 400 Tab*) 400 mg PO QAM [facility] Last Admin: 01/29/19 08:48 Dose: 400 mg Metoprolol Succinate (Toprol Xl Tab*) 12.5 mg PO BID [facility] Minoxidil (Loniten Tab*) 2.5 mg PO BID [facility] Last Admin: 01/29/19 11:56 Dose: 2.5 mg Nitroglycerin (Nitroglycerin Tab 0.4 Mg*) 0.4 mg SL Q5M PRN PRN Reason: ANGINA Sertraline HCl (Zoloft*) 50 mg PO DAILY [facility] Last Admin: 01/29/19 08:49 Dose: 50 mg Tamsulosin HCl (Flomax Cap*) 0.4 mg PO QPM [facility] Last Admin: 01/29/19 16:14 Dose: 0.4 mg Terazosin HCl (Hytrin Cap*) 5 mg PO BEDTIME [facility] Last Admin: 01/28/19 20:48 Dose: 5 mg Vital Signs - 8 hr 01/29/19 01/29/19 12:15 15:04 Temperature 97.8 F 98.0 F Pulse Rate 61 63 Respiratory 18 16 Rate Blood Pressure 149/71 142/66 (mmHg) O2 Sat by Pulse 98 96 Oximetry Oxygen Devices in Use Now: Nasal Cannula Appearance: alert, flat affect, NAD Eyes: No Scleral Icterus, PERRLA Ears/Nose/Mouth/Throat: NL Teeth, Lips, Gums, Mucous Membranes Moist Neck: NL Appearance and Movements; NL JVP, Trachea Midline Respiratory: Symmetrical Chest Expansion and Respiratory Effort, - - clear apices, rales improved at bases Cardiovascular: NL Sounds; No Murmurs; No JVD, RRR, No Edema Extremities: No Edema, No Clubbing, Cyanosis Skin: No Rash or Ulcers Neurological: Alert and Oriented x 3 Nutrition: Taking PO's Result Diagrams: 01/27/19 05:58 01/28/19 11:49 Microbiology and Other Data: Microbiology 01/27/19 05:58 Aerobic Blood Culture - Preliminary Blood Venous No Growth Day 1 Anaerobic Blood Culture - Preliminary No Growth Day 1 01/27/19 05:58 Aerobic Blood Culture - Preliminary Blood Venous No Growth Day 1 Anaerobic Blood Culture - Preliminary No Growth Day 1 Assess/Plan/Problems-Billing Assessment: This is a 63 year old male with history of CKD, CAD that was just discharged from [facility] that presented with SOB, wheezing and chest tightness, admitted with NSTEMI and worsening volume overload. - Patient Problems (1) Volume overload Code(s): E87.70 - FLUID OVERLOAD, UNSPECIFIED SNOMED Code(s): 06304226 Comment: - Dr. Byers and Dr. Patel following - Appears to be responding ti IV lasix, daily weights, strict I&Os and supplemental O2 - Patient wishes to decline dialysis at this time, please refer to notes by Dr. Byers for follow up - Transition to lasix PO tomorrow (2) Anemia Code(s): D64.9 - ANEMIA, UNSPECIFIED SNOMED Code(s): 094701545 Comment: - Chronic 2/2 CKD - IV venofer - continue epogen (3) Chest pain Code(s): R07.9 - CHEST PAIN, UNSPECIFIED SNOMED Code(s): 14571666 Comment: - Recent NSTEMI and with rising trops again 2/2 persistent volume overload and ESRD - Consult with Dr. Patel appreciated - High risk to cath given renal dysfunction, please see cardiology note and utility of performing cardiac cath at this time - continue medical management (4) Chronic kidney disease, stage IV (severe) Code(s): N18.4 - CHRONIC KIDNEY DISEASE, STAGE 4 (SEVERE) SNOMED Code(s): 928503724 Comment: - Accelerated ESRD, patient declines dialysis - Will need close outpatient follow up with Dr. Byers (5) HTN (hypertension) Code(s): I10 - ESSENTIAL (PRIMARY) HYPERTENSION SNOMED Code(s): 79528053 Comment: - Mionoxidil, metoprolol and clonidine patch (6) Non-ST elevation NC (NSTEMI) Code(s): I21.4 - NON-ST ELEVATION (NSTEMI) MYOCARDIAL INFARCTION SNOMED Code(s ): 70062692 Comment: - Nuclear stress at last admission revealed decreased EF ~45% and Mild ischemia at inferior wall - High risk for complete renal failure 2/2 contrast induced nephropathy - Continue plavix - Continue Toprol XL 37.5 mg bid, Imdur 240 mg Daily, Lipitor 40 mg HS - Transition to lasix PO tomorrow (7) Type II diabetes mellitus Comment: - Lispro SS with accuchecks ACHS (8) CAD (coronary artery disease) Code(s): I25.10 - ATHSCL HEART DISEASE OF [place] CORONARY ARTERY W/O ANG PCTRS SNOMED Code(s): 92335634 Comment: - Extensive hx of CABG and stents - Cardiology following - Continue home meds and tele, supportive O2 (9) Full code status Code(s): Z78.9 - OTHER SPECIFIED HEALTH STATUS SNOMED Code(s): 547013865 Status and Disposition: Inpatient, guarded. May be able to DC on diuretics tomorrow and follow up outpatient with Dr. Byers.
[2019-01-29] MEDS ORDERED: cloNIDine 0.3 MG PATCH* 0.3 MG/24 HR 7 DAY PATCH TRANSDERM SCH (21:00)
[2019-01-29] MEDS: Terazosin CAP* 5 MG PO SCH (21:41)
[2019-01-29] MEDS ORDERED: Acetaminophen TAB* 325 MG PO PRN (23:17)
[2019-01-30] MEDS: busPIRone TAB* 5 MG PO SCH (08:24)
[2019-01-30] MEDS: Aspirin EC TAB* 81 MG TAB.EC PO SCH (08:24)
[2019-01-30] MEDS: Atorvastatin* 40 MG TAB PO SCH (08:24)
[2019-01-30] MEDS: Isosorbide Mononitrate ER TAB* 60 MG PO SCH (08:25)
[2019-01-30] MEDS: Sertraline* 50 MG TAB PO SCH (08:26)
[2019-01-30] MEDS: MinoXIDil TAB* 2.5 MG TAB PO SCH (08:26)
[2019-01-30] MEDS: Clopidogrel TAB* 75 MG PO SCH (08:26)
[2019-01-30] MEDS: Magnesium Oxide TAB* 400 MG PO SCH (08:26)
[2019-01-30] MEDS: Metoprolol Succinate XL TAB* 25 MG PO SCH ×2 (08:29→18:37)
[2019-01-30] MEDS ORDERED: Furosemide IV* 10 MG/ML 10 ML VIAL (100 MG) IV SCH (09:00)
[2019-01-30 16:04] VITALS: BP 149/71
[2019-01-30] MEDS: Finasteride TAB* 5 MG PO SCH (17:36)
[2019-01-30] MEDS: Tamsulosin CAP* 0.4 MG PO SCH (17:36)
[2019-01-30] MEDS ORDERED: Furosemide TAB* 40 MG PO ONE (18:19)
[2019-01-30 19:01] LABS: Calcium 8.5 mg/dL (8.6-10.3); EGFR African American 11.7 (>60); EGFR Non-African American 9.6 (>60)
[2019-01-30 19:02] LABS: Potassium 5.6 mmol/L (3.5-5.0)
--- NOTE | 2019-02-01 07:26 | DS ---
CC: Dr. Caban; Dr. Beltre; Dr. Karen Patel; Dr. Byers of Nephrology * DISCHARGE SUMMARY: DATE OF ADMISSION: 01/28/19 DATE OF DISCHARGE: Evening of 01/30/19 PRIMARY CARE PROVIDER: Dr. Caban. MY ATTENDING PHYSICIAN: Dr. Alexander.* (DICTATED BY MCKENNA HENRY NP) BALLISTICIAN: Dr. Beltre. HOSPITAL COURSE: Please refer to admitting H and P dated 01/27/19, but in short , this is a 63-year-old male patient who was recently admitted and discharged on 01/24/19 after having an acute coronary syndrome and NSTEMI. The patient had a nuclear stress test at that time, which was read as intermediate risk. However, he does have significant chronic kidney disease as well. The patient had declined having cardiac catheterization at that time secondary to his renal function. He was treated medically and discharged and 2 days later, he returned back to the emergency department with a complaint of worsening shortness of breath, also had some diffuse chest pressure radiating into the lateral neck and up into his hindu and some accompanying chest tightness. He had some changes in his labs. He did still have an elevated troponin; however, the troponin did begin to rise after he was admitted and he ruled in for his second NSTEMI in 2 weeks. He was seen by Cardiology as well as by Dr. Byers. Again, the problem with his presentation is because of his severe kidney disease in order to obtain cardiac catheterization, which surely put him into endstage renal disease, requiring hemodialysis secondary to contrast. The patient discussed at length with Dr. Byers and also with Dr. Patel the utility of undergoing a cardiac cath versus initiating hemodialysis during this admission. The patient was very reluctant to initiate hemodialysis. He and his agreed to aggressive IV diuresis for his continued volume overload while he was acutely hospitalized. Cardiology titrated his medications, reducing his beta-kedar. He was having some pauses on telemetry. As such, his beta- kedar was reduced. He responded well to 80 mg of Lasix IV daily, was at a negative fluid balance on the day of discharge. The patient was also having some hypertensive crisis while he was here. Blood pressure medications again were titrated. Blood pressure began to stabilize over the course of that 48 hours, likely in response to the aggressive diuresis he was receiving. I had many discussions with Dr. Patel and Dr. Byers about how to proceed on this patient's case. The patient wished to proceed only with medical management and then meet with Dr. Byers in the office regarding initiation of hemodialysis in the outpatient setting. The patient was ambulating unassisted on room air, did not require oxygen and was feeling back to his baseline. He was cleared by Dr. Patel and Dr. Byesr for discharge to home and was discharged on the evening of 01/30/19. DISCHARGE DIAGNOSES: Includes: 1. Volume overload secondary to endstage kidney disease. 2. Chronic anemia secondary to chronic kidney disease, on IV Venofer and Epogen. 3. Chest pain secondary to acute coronary syndrome, ifk-RX-khyteyjvb myocardial infarction and preexisting coronary heart disease. 4. Chronic kidney disease stage 5, which has accelerated over the course of 2 weeks. 5. Hypertensive urgency, now resolved. 6. Recurrent gfb-OB-vwiivodny myocardial infarction. 7. Coronary artery disease. 8. Diabetes mellitus type 2. DISCHARGE MEDICATIONS: Include: 1. Amlodipine 10 mg p.o. b.i.d. 2. Clonidine patch 0.3 mg weekly. 3. BuSpar 10 mg p.o. b.i.d. 4. B-complex 1 tablet daily. 5. Hytrin 5 mg at bedtime. 6. Flomax 0.4 mg at bedtime. 7. Sertraline 50 mg daily. 8. Crestor 20 mg daily. 9. Nitroglycerin 0.4 mg as needed. 10. Multivitamin 1 tablet daily. 11. Minoxidil 2.5 mg p.o. b.i.d. 12. Mag-Ox 400 mg p.o. daily. 13. Imdur extended release tablet 240 mg p.o. daily. 14. Proscar 5 mg in the evening. 15. Pepcid 20 mg every other day. 16. Plavix 75 mg daily. 17. Vitamin D3 2000 units daily. 18. Aspirin 325 mg p.o. daily. 19. Lac-Hydrin topical 12% externally daily. 20. Alogliptin 12.5 mg p.o. daily. 21. Albuterol 1 puff inhaled q.4 hours as needed. 22. Metoprolol succinate 12.5 mg p.o. b.i.d. 23. Lasix 40 mg p.o. b.i.d. Please note on medications above 2 changes to his medication regimen are the Lasix which is new 40 mg 2 times a day and the adjustment in his metoprolol. REVIEW OF SYSTEMS ON DAY OF DISCHARGE: The patient denies any fever, fatigue, or chills. No acute shortness of breath. No chest pain or other anginal equivalence. No abdominal pain, no nausea, no vomiting, no urinary complaints, no arthralgias or myalgias, and no further constitutional complaints. PHYSICAL EXAMINATION: He is well appearing and in no acute distress. Blood pressure is 149/71, heart rate 58, respiratory rate 18, O2 saturation 93% to 94 % on room air, temperature 97.6. HEENT: The patient is atraumatic, normocephalic. PERRLA. Anicteric sclerae. Oral mucosa is moist. Tongue is midline. Neck is supple. No JVD. No carotid bruit auscultated. Cardiovascular: S1, S2 present. No murmurs, gallops, or rubs noted. Rate and rhythm are currently regular. Lungs are clear at the apices bilaterally, diminished at the bases with good air entry. No wheezing, rhonchi, or rales noted. Abdomen is soft, nontender, and nondistended. Positive bowel sounds in all 4 quadrants. : Deferred. Musculoskeletal: There is no clubbing, no cyanosis. He has bilateral pedal edema, 1+ at the lower extremities which is improved. He has +2 distal pulses palpable. Full range of motion and steady gait. Gross motor and sensation are intact. Neurologic: Grossly intact with no focality. Psychiatric: He is cooperative and appropriate, although he does have a flat affect at times. DIAGNOSTIC STUDIES/LAB DATA: Laboratories: WBCs 7.8, RBCs 3.53, hemoglobin 9.5 , hematocrit 29, platelets 165. Sodium 134, potassium 5.6, chloride 104, CO2 of 20, BUN 89, creatinine 5.92, GFR 9.6, glucose ranged 105 to 158, calcium 8.5. Troponins at admission 0.19, max was 2.11, at discharge was 1.76. Imaging: The patient's chest x-ray dated 01/27/19 reveals chest x-ray findings are most consistent with cardiogenic pulmonary edema with potentially overlying multifocal infiltrate. DISPOSITION: The patient was discharged to home in the care of his in stable condition. All questions were answered. The patient stated his understanding of his followups, medications at time of discharge. FOLLOWUPS: This patient was instructed to follow up with Dr. Byers. He was told to call the office on Saturday after 10 a.m. to arrange an additional family meeting and discuss initiation of dialysis. He was also instructed to follow up with his primary care provider within the next 1 to 2 weeks. DIET: The patient should have a low-sodium, low-potassium diet as tolerated. ACTIVITY: Progress as tolerated. Again, the patient was discharged in stable condition. TIME SPENT: Approximately 45 minutes interfacing with the patient and his , developing discharge plan of care. MCKENNA HENRY NP [id number]/[facility] #: [id number] KIKI
[2019-02-02 10:51] LABS: Albumin 2.5 g/dL (3.4-4.7); Albumin/Globulin Ratio 0.92; Gamma Globulin 0.7 g/dL (0.6-1.6); Total Protein(PEP) 5.2 g/dL (6.3 - 7.9)
== END 2019-01-30 18:30 | disposition home or self-care (01) | DRG 280 ==
LOC: ED 05:05 → MEDTELE 08:46 → OBSVTOIN 01-28 10:00
PROVIDERS: ADMIT Internal Medicine; ATTEND Internal Medicine
DX: I21.A1 Myocardial infarction type 2 (principal); N18.6 End stage renal disease; I13.2 Hypertensive heart and chronic kidney disease with heart failure and with stage 5 chronic kidney disease, or end stage renal disease; N17.9 Acute kidney failure, unspecified; I21.4 Non-ST elevation (NSTEMI) myocardial infarction; I24.9 Acute ischemic heart disease, unspecified; E78.00 Pure hypercholesterolemia, unspecified; K21.9 Gastro-esophageal reflux disease without esophagitis; M19.042 Primary osteoarthritis, left hand; M19.041 Primary osteoarthritis, right hand; M19.012 Primary osteoarthritis, left shoulder; M19.011 Primary osteoarthritis, right shoulder; F41.9 Anxiety disorder, unspecified; F32.9 Major depressive disorder, single episode, unspecified; I44.0 Atrioventricular block, first degree; G47.33 Obstructive sleep apnea (adult) (pediatric); N40.0 Benign prostatic hyperplasia without lower urinary tract symptoms; E11.22 Type 2 diabetes mellitus with diabetic chronic kidney disease; E11.51 Type 2 diabetes mellitus with diabetic peripheral angiopathy without gangrene; D50.9 Iron deficiency anemia, unspecified; D63.1 Anemia in chronic kidney disease; I16.0 Hypertensive urgency; I25.119 Atherosclerotic heart disease of native coronary artery with unspecified angina pectoris; I50.9 Heart failure, unspecified; E78.1 Pure hyperglyceridemia; Z86.73 Personal history of transient ischemic attack (TIA), and cerebral infarction without residual deficits; I25.2 Old myocardial infarction; Z88.1 Allergy status to other antibiotic agents; Z79.82 Long term (current) use of aspirin; Z82.49 Family history of ischemic heart disease and other diseases of the circulatory system; Z85.828 Personal history of other malignant neoplasm of skin; Z95.5 Presence of coronary angioplasty implant and graft; Z95.1 Presence of aortocoronary bypass graft; Z79.02 Long term (current) use of antithrombotics/antiplatelets; Z83.3 Family history of diabetes mellitus; R00.1 Bradycardia, unspecified
CPT/HCPCS: 36415; 71045; 80048; 80053; 82803; 83036; 83605; 83735; 83880; 84155; 84165; 84484; 85025; 85610; 85730; 86140; 87040; 93005; 99285; A9270-GY; G0378; J1644; J1756; J1940; J2270; J2405; Q5106

== ENCOUNTER 2019-02-12 23:47 | Inpatient (IN) | payer MEDICARE ==
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
[2019-02-13] MEDS ORDERED: Metoprolol Tartrate IV* 1 MG/ML 5 ML VIAL IV ONE (01:21)
[2019-02-13] MEDS ORDERED: hydrALAZINE IV* 20 MG/ML VIAL IV SLOW PU ONE (01:21)
[2019-02-13 01:32] LABS: ABS Basophils 0 10^3/ul (0-0.2); ABS Eosinophils 0.2 10^3/ul (0-0.6); ABS Lymphocytes 1.1 10^3/ul (1.0-4.8); ABS Monocytes 0.4 10^3/ul (0-0.8); ABS Nucleated RBC 0 10^3/ul; Eosinophil % 3.5 %; Hematocrit 29 % (36-46); Hemoglobin 9.7 g/dL (14.0-18.0); Lymphocyte % 16.5 %; Mean Corpuscular HGB Conc 34 g/dL (31-36); Mean Corpuscular Hemoglobin 28 pg (27-31); Mean Corpuscular Volume 82 fL (80-94); Mean Platelet Volume 9.2 fL (7.4-10.4); Nucleated Red Blood Cells % 0; Platelet Count 167 10^3/uL (150-450); Red Blood Count 3.51 10^6 /uL (4.18-5.48); Red Cell Distribution Width 14 % (10.5-15); White Blood Count 6.8 10^3/uL (3.5-10.8)
[2019-02-13 01:42] LABS: Activated Partial Thrombo Time 28.3 seconds (26.0-36.3); INR 0.89 (0.77-1.02)
[2019-02-13 01:50] LABS: ALT 14 U/L (7-52); Albumin/Globulin Ratio 1.6 (1-3); Alkaline Phosphatase 86 U/L (34-104); BUN/Creatinine Ratio 16.4 (8-20); Blood Urea Nitrogen 84 mg/dL (6-24); CO2 Carbon Dioxide 22 mmol/L (22-32); Calcium 8.8 mg/dL (8.6-10.3); Chloride 111 mmol/L (101-111); EGFR African American 13.8 (>60); EGFR Non-African American 11.4 (>60); Globulin 2.5 g/dL (2-4); Glucose 136 mg/dL (70-100); Magnesium 2.4 mg/dL (1.9-2.7); Sodium 138 mmol/L (135-145); Total Protein 6.5 g/dL (6.4-8.9)
[2019-02-13 01:54] LABS: Anion Gap 5 mmol/L (2-11); Troponin I 0.04 ng/mL (<0.04)
[2019-02-13] MEDS ORDERED: Furosemide IV* 10 MG/ML VIAL (40 MG) IV ONE (02:17)
[2019-02-13] MEDS ORDERED: Nitro 2% OINT* (Nitroglycerin) 1 INCH/PAK PAK TOPICAL ONE (02:18)
[2019-02-13] MEDS ORDERED: Docusate CAP* 100 MG PO PRN (04:00)
[2019-02-13] MEDS ORDERED: Al Hydrox/Mg Hydrox/Simet LIQ* 30 ML UDC PO PRN (04:00)
[2019-02-13] MEDS ORDERED: Acetaminophen TAB* 325 MG PO PRN (04:00)
[2019-02-13] MEDS ORDERED: Senna TAB PO PRN (04:00)
[2019-02-13] MEDS ORDERED: Ondansetron INJ* 2 MG/ML VIAL IV PRN (04:00)
[2019-02-13] MEDS ORDERED: Albuterol HFA INHALER* 8 gm MDI INH PRN (04:06)
[2019-02-13] MEDS ORDERED: Dextrose 50% Syringe 50 ML* 25 GM/50 ML SYRINGE IV PUSH PRN (04:09)
[2019-02-13] MEDS ORDERED: cloNIDine 0.3 MG PATCH* 0.3 MG/24 HR 7 DAY PATCH TRANSDERM SCH (05:00)
[2019-02-13 05:07] LABS: Potassium Redraw 4.1 mmol/L (3.5-5.0)
[2019-02-13 05:19] LABS: Troponin I 0.05 ng/mL (<0.04)
[2019-02-13] MEDS: Heparin VIAL(*) 5000 UNITS/ML VIAL (FIVE THOUSAND) SUBCUT SCH ×3 (05:22→21:19)
[2019-02-13] MEDS: hydrALAZINE IV* 20 MG/ML VIAL IV SLOW PU PRN (05:23)
--- NOTE | 2019-02-13 07:13 | HP ---
CC: Dr. Benjy Caban; Lg Beltre DO.* HISTORY AND PHYSICAL: DATE OF ADMISSION: 02/13/19 TIME OF EVALUATION: 0400. PRIMARY CARE PHYSICIAN: Dr. Benjy Caban. RESOURCE PROGRAM TEACHER: Lg Beltre DO. CHIEF COMPLAINT: Chest pain. HISTORY OF PRESENT ILLNESS: This is a 63-year-old male with a past medical history of known coronary artery disease who was recently admitted earlier this month for an NSTEMI who presents to the emergency room with chest pain. The patient states around 10:30 this evening as he was walking to his bedroom, he developed substernal chest pa;in radiating down his right arm. He took 2 nitro with no relief and decided because of his history, he came to the emergency room for further evaluation. On his way to the emergency room, his symptoms resolved. He did have some associated shortness of breath. No nausea, no diaphoresis. He was often burping more. For dinner last evening, he had hotdog and cheese sandwiches. He states that his blood pressure has been high for the past few days, yesterday was as high as 195 systolic. He has been having issues with lightheadedness and dizziness and he fell yesterday and he also fell 2 days ago in the bathroom. He states he turned too quick going up very dizzy. He denies any lower extremity swelling. No changes in his weight. His weight ranged around 230. No recent changes in medications since he was recently admitted. He denies any black or bloody stools. Otherwise, review of systems negative. In the emergency room, the patient had labs and imaging. He was given 2 inches of nitro paste, 2.5 mg of Lopressor, 5 mg of hydralazine, Lasix 40 mg and referred to the hospitalist services for further evaluation. PAST MEDICAL HISTORY: 1. Coronary artery disease, status post coronary artery bypass graft in 2003 and he subsequently has had several stents placed. 2. Admission in January 2019 for an NSTEMI. The patient is medically managed. 3. CKD stage 5, followed by Dr. Byers. 4. Anemia of chronic disease. 5. Obstructive sleep apnea. 6. History of stroke with memory impairment. 7. History of PFO closure. 8. Diabetes. 9. Hyperlipidemia. 10. Hypertension. 11. History of GI bleed in 2018. 12. History of bladder outlet obstruction. 13. GERD. MEDICATIONS: 1. Amlodipine 10 mg p.o. b.i.d. 2. Clonidine patch 0.3 mg weekly. 3. BuSpar 10 mg p.o. b.i.d. 4. Vitamin B-complex 1 tab daily. 5. Hytrin 5 mg at bedtime. 6. Flomax 0.4 mg at bedtime. 7. Sertraline 50 mg daily. 8. Crestor 20 mg daily. 9. Nitro as needed. 10. Multivitamin daily. 11. Minoxidil 2.5 mg p.o. b.i.d. 12. Magnesium oxide 400 mg daily. 13. Imdur extended release 240 mg daily. 14. Proscar 5 mg daily. 15. Pepcid 20 mg every other day. 16. Plavix 75 mg daily. 17. Vitamin D3 2000 units daily. 18. Aspirin 325 mg daily. 19. Lac-Hydrin topical 12% external daily. 20. Alogliptin 12.5 mg p.o. daily. 21. Albuterol inhale every 6 hours as needed. 22. Metoprolol succinate 12.5 mg p.o. b.i.d. 23. Lasix 40 mg p.o. b.i.d. ALLERGIES: SULFA and TRIMETHOPRIM. SOCIAL HISTORY: The patient lives at home with his who is his healthcare proxy. He is on disability. No history of tobacco use. Occasional alcohol use. 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 CODE STATUS: Full code. REVIEW OF SYSTEMS: A 14-point review of systems as mentioned in the HPI, otherwise negative. In addition to the patient sleeps with 3 pillows, he has had dyspnea on exertion. FAMILY HISTORY: Mother at age 87 from hypertension, diabetes. Biological father young, unclear of the cause. PHYSICAL EXAMINATION GENERAL: In no acute distress, pale appearing. at the bedside. VITAL SIGNS : Temp 99.4, pulse rate 61, respiratory rate 14, oxygen saturation 93% on room air, and blood pressure 180/90. HEENT: Head: Normocephalic. Pupils equal and reactive. Anicteric. Oropharynx: Mucous membranes moist. NECK: Supple. No lymphadenopathy. CARDIAC: Bradycardic. Systolic murmur heard throughout. RESPIRATORY: Clear to auscultation. No wheezes, rhonchi, or rales. ABDOMEN: Soft, nontender, nondistended. EXTREMITIES: No clubbing, cyanosis, or edema. +1 DPs. Compression socks are in place. NEUROLOGIC: Alert and oriented x3. No gross focal neurologic deficits. DIAGNOSTIC STUDIES/LAB DATA: White count 6.8, hemoglobin 9.7, hematocrit 29, platelets 167. INR 0.89. Sodium 138, potassium is pending, chloride 111, bicarb 22, BUN 84, creatinine 5.13, troponin 0.04. BNP is 521. EKG shows normal sinus rhythm with some flattening of the T waves, nonspecific ST changes. Chest x-ray, some mild prominent interstitial markings. ASSESSMENT: This is a 63-year-old male with past medical history of known coronary artery disease, status post bypass and stents, with chronic kidney disease stage 5 presents to the emergency room with chest pain. 1. Chest pain. The patient's troponin is down since he was here earlier this month when he had his ftk-JI-bwqyhnsrj myocardial infarction. His chest pain could be related to his poorly controlled high blood pressure. He does have known coronary artery disease and there was plans for doing a cardiac cath, though the patient was unsure about initiating dialysis at this time because of his chronic kidney disease stage 5. He has since then met with Dr. Byers and is being worked up and getting initiated for dialysis. Plan: We will [facility]. We will continue to trend his troponin, continue on his medications at home. He appears to be clearly medically optimized with dual-antiplatelet therapy, beta-kedar and Lasix b.i.d. I think he has compensated congestive heart failure and he does not appear to be volume overloaded at this time. In fact, he may be slightly overdiuresed in the setting of his dizziness and lightheadedness. We will check orthostatic vital signs. 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 2. Hypertension. The patient with poorly controlled blood pressure. He clearly does not adhere to a low-salt diet. He is on multiple antihypertensives and he is having episodes of bradycardia during my encounter down to the 30s, would not titrate his beta-kedar any higher. In fact, he may need to be discontinued off of that if he continues to have problems on telemetry. We will get a Doppler of his renal arteries in the setting of multiple antihypertensives and still poorly controlled blood pressure. We will also consult Nutrition to discuss low-salt diet. 3. Chronic medical problems. Diabetes. We will hold his alogliptin and place him on Lispro sliding scale and diabetic diet. If he does resume this, he needs to be on the lower dose for renally dosed for his creatinine clearance. 4. Resume all home medications as prescribed. 5. Dizziness. As mentioned above, could be overdiuresis. He is also on several benign prostate hypertrophy medications, which may be contributing to it as well. Consider eliminated one of them if this does not improve and he is not orthostatic. 6. DVT prophylaxis. The patient scores high risk. We will place him on heparin subcu t.i.d. 7. Code status. Full code. 8. Fluids, electrolytes, nutrition. Diabetic diet. PATIENT TIME: Greater than 45 minutes was spent doing the history and physical , more than half the time spent in direct patient contact. [id number]/[facility] #: [id number] KIKI
[2019-02-13] MEDS: Isosorbide Mononitrate ER TAB* 60 MG PO SCH (08:43)
[2019-02-13] MEDS: Famotidine TAB* 20 MG PO SCH (08:43)
[2019-02-13] MEDS: Clopidogrel TAB* 75 MG PO SCH (08:43)
[2019-02-13] MEDS: Vitamin B Complex TAB PO SCH (08:43)
[2019-02-13] MEDS: MinoXIDil TAB* 2.5 MG TAB PO SCH ×2 (08:43→20:39)
[2019-02-13] MEDS: Atorvastatin* 40 MG TAB PO SCH (08:43)
[2019-02-13] MEDS: amLODIPine TAB* 5 MG PO SCH ×2 (08:43→20:39)
[2019-02-13] MEDS: Furosemide TAB* 40 MG PO SCH ×2 (08:44→20:39)
[2019-02-13] MEDS: Metoprolol Succinate XL TAB* 25 MG PO SCH ×2 (08:44→20:38)
[2019-02-13] MEDS: Sertraline* 50 MG TAB PO SCH (08:44)
[2019-02-13] MEDS: Magnesium Oxide TAB* 400 MG PO SCH (08:44)
[2019-02-13] MEDS: busPIRone TAB* 10 MG PO SCH ×2 (08:44→20:38)
[2019-02-13] MEDS: Aspirin 81 mg CHEW TAB* 81 MG TAB.CHEW PO SCH (08:49)
[2019-02-13] MEDS ORDERED: Aspirin EC TAB* 325 MG PO SCH (09:00)
--- NOTE | 2019-02-13 09:18 | CONS ---
NICHOLE HOFFMAN NP [id number]/[facility] #: [id number]
[2019-02-13 09:20] LABS: Troponin I 0.06 ng/mL (<0.04)
[2019-02-13] MEDS: Insulin LISPRO* 1 UNITS UNIT SUBCUT SCH ×3 (10:07→19:36)
[2019-02-13 10:41] LABS: Troponin I 0.05 ng/mL (<0.04)
--- NOTE | 2019-02-13 11:58 | CONS ---
CONSULTATION REPORT: DATE OF CONSULT: 02/13/19 ATTENDING PHYSICIAN: Dr. Karen Patel. PRIMARY CARE AUTOMOBILE BODY CUSTOMIZER: Dr. Lg Beltre. PRIMARY BRUSH HOLDER ASSEMBLER: Dr. Byers. REASON FOR CONSULT: CCS class III angina with minimal troponin elevation. CHIEF COMPLAINT: Exertional chest pain despite nitroglycerin use. HISTORY OF PRESENT ILLNESS: This is a pleasant 63-year-old male patient who follows with Dr. Lg Beltre of our practice due to known history of coronary artery disease with a bypass in 2002 where he underwent MARTINEZ to LAD, free left radial artery graft to right PDA. Apparently at that time the posterolateral ramus were thought to be too small to graft even though they were diseased. He also has notable history of stage V chronic kidney disease. In the past, he has been offered initiation of dialysis; however, he has been hesitant to initiate dialysis. In 2013, due to CCS class III angina and inferior ischemia, he underwent left heart catheterization by Dr. Aj Hannon, which revealed patent MARTINEZ to LAD, 40% distal left main stenosis, 90% proximal LAD stenosis, 80 % stenosis of the noted grafted ramus, and 40% proximal circumflex and occluded RCA. The MARTINEZ supplied the LAD and the left free radial artery bypass graft supplied the right PDA, but had a moderate proximal stenosis with a high-grade mid stenosis, which was stented with a 2.25 x 24 drug-eluting stent in the mid portion and a 2.5 x 16 drug-eluting stent in the proximal portion. RCA distal to PDA was occluded and filled by left to right collaterals from circumflex. LV function was lower limit of normal. The patient has presented on 3 separate occasions due to CCS class III angina in the past 2 months. He was actually admitted on 01/20/19 with NSTEMI with a peak troponin of 5.65 with typical rise and fall. His renal function at that time was 5.49 with GFR of 10.5. He was volume overloaded and underwent diuresis. Dr. Byers has seen the patient and offered dialysis; however, the patient has been trying to put off dialysis as long as possible. There is a complication involving starting peritoneal dialysis due to the patient's cats that reside with him. The patient reports positional lightheadedness. Denies syncope, palpitation, sensation of heart racing, or increased edema. Does report dyspnea on exertion and exertional chest pain described as an ache. Apparently, he has been doing well since being discharged home. He has not had any recent adjustment of Lasix therapy since being discharged from [facility]. He reports good urinary output. Last evening around 10:30 p.m., while ambulating, he developed exertional chest pain. He states that he took 1 nitroglycerin with minimal relief. After ambulating again to the bathroom, pain intensified and was not relieved with second nitroglycerin. Thus he had his Malka drive him to [facility]. While being evaluated in the emergency department, basic blood work was obtained. Troponin was 0.04. Chest x-ray demonstrated mild pulmonary vascular congestion. ECG revealed normal sinus rhythm, rate 64 with known lateral T wave abnormalities. The patient was admitted to telemetry and we were asked to see the patient in consultation. PAST MEDICAL HISTORY: Includes: 1. Coronary artery disease. 2. Intermittent thrombocytopenia. 3. Chronic kidney disease stage 5. 4. Ojwe-ws-bglibqkm mitral regurgitation. 5. Hypertriglyceridemia. 6. Hypertension. 7. Diastolic heart failure. 8. Moderate pulmonary hypertension. 9. Prior CVA with memory impairment. 10. Prior PFO closure. 11. Type 2 diabetes. 12. Obstructive sleep apnea. 13. Anemia likely of chronic disease. 14. GI bleed, February 2018. PAST SURGICAL HISTORY: Includes: 1. Prior PFO closure. 2. Bypass in 2002 as mentioned above. 3. Stent in brain. 4. Prior left heart catheterization. HOME MEDICATIONS: Includes: 1. Clonidine 0.3 mg transdermal patch applied once a week. 2. BuSpar 10 mg p.o. b.i.d. 3. Norvasc 10 mg b.i.d. 4. Hytrin 5 mg p.o. q.h.s. 5. Flomax 0.4 mg p.o. q.h.s. 6. Zoloft 50 mg p.o. daily. 7. Crestor 20 mg p.o. daily. 8. As needed sublingual nitroglycerin. 9. Multivitamin taken daily. 10. Loniten 2.5 mg p.o. b.i.d. 11. Metoprolol 12.5 mg p.o. b.i.d. 12. Mag-Ox 400 mg p.o. daily. 13. Imdur 240 mg a day. 14. Lasix 40 mg p.o. b.i.d. 15. Proscar 5 mg p.o. daily. 16. Pepcid 20 mg every other day. 17. Plavix 75 mg a day. 18. Aspirin 81 mg p.o. daily. ALLERGIES: Include BACTRIM which causes a rash. Denies allergy to contrast dye or shellfish. FAMILY HISTORY: Noncontributory. SOCIAL HISTORY: The patient is to his , Malka. He is a nonsmoker. Denies tobacco use or drug abuse. He is on disability. He is a full code. REVIEW OF SYSTEMS: All systems have been reviewed and otherwise negative except as mentioned in the HPI. PHYSICAL EXAMINATION: Temperature is 97.8, pulse 63, respirations 17, blood pressure is 158/78. General: The patient was resting in bed upon entering the room, cooperative with exam, does not appear in any distress. He is alert and oriented x3. HEENT: Head is atraumatic, normocephalic. Oral mucosa is moist. Tongue is midline. Neck: Supple. Trachea midline. Positive JVD. No thyromegaly noted. Cardiac: Howard, S1 and S2, regular rate and rhythm. There is a 3/5 holosystolic murmur noted at the left axilla, otherwise no gallop or rub. Lungs: Auscultated posteriorly. Clear throughout. Respirations nonlabored. /GI: Abdomen is soft, nontender, nondistended. Normoactive bowel sounds x4. Extremities: Trace pretibial edema noted bilaterally, slightly worse in left pretibial surface versus right. Skin: Intact. No evidence of jaundice versus ecchymosis appreciated. Psych: Appropriate affect , A and O x3. DIAGNOSTIC STUDIES/LAB DATA: Blood Work: Sodium 138, potassium 4.1, chloride 101, carbon dioxide 22, BUN 5, creatinine 5.13, glucose 136. Troponin #2 was 0.05. INR 0.89. White count 6.8, hemoglobin 9.7, hematocrit 29, platelets 167. ECG from 02/13/19 demonstrates sinus bradycardia rate 64 with known lateral T- wave abnormalities. No ST elevation or depression appreciated. Chest x-ray from 02/13/19, per radiology report, mild pulmonary vascular congestion. Last echocardiogram was 01/20/19. At that time, LVEF was 55% to 60% with moderate LVH. Left atrium was severely dilated. There was no aortic stenosis, trace aortic insufficiency, vcdb-al-jgejebte mitral regurgitation. No mitral stenosis. Moderate pulmonary hypertension. Mild transthoracic ascending aorta dilatation at 3.9 cm. ASSESSMENT AND PLAN: 1. Known CCS class III angina in the setting of recent Non-ST elevation myocardial infarction, 01/20/19. The patient re-presented with exertional chest pain with minimal troponin elevation. We will continue to cycle isoenzymes. No EKG changes to suggest acute coronary syndrome. The patient has been pain free since presenting to the emergency department early this morning at 0100. We will reduce aspirin to 81 mg a day. Continue Plavix, statin, beta-blockade, and Imdur therapy. The patient has been offered left heart catheterization in the past; however, has declined doing so likely due to it accelerating the need for dialysis. Given this is his third presentation with angina and recent non-ST elevation myocardial infarction on 01/20/19, I spoke to his Malka who is advocating for left heart catheterization with initiation of hemodialysis afterwards. Due to need for coordination of care, I spoke to Dr. Byers who is agreeable to initiating dialysis after left heart catheterization. The patient may eat today. Tentative plan is left heart catheterization on Saturday followed by dialysis. Dr. Patel and Dr. Byers will speak with both the patient and his Malka today at noon. 2. History of hypertension. We will continue current medical therapy. Blood pressure currently is 158/78. 3. History of chronic kidney disease stage 5. Dr. Byers is to see the patient today. He appears compensated on physical examination. Renal function is reflective of his baseline. 4. History of xfen-cx-ayoodstx mitral regurgitation. He actually appears compensated on physical examination. We will continue current diuretic regimen. 5. Disposition pending course. The patient is full code. Further recommendations to be made after today's meeting with Dr. Byers and the patient. Dr. Karen Patel has seen and examined the patient and agrees with the above assessment and plan. Thank you for this kind consultation. Please do not hesitate to contact our service with any questions or concerns. NICHOLE HOFFMAN, SALES AGENT [id number]/[facility] #: [id number] KIKI
[2019-02-13] MEDS ORDERED: Iodixanol 320 (CONTRAST) 100 ML SDV IV ONE (13:06)
[2019-02-13] MEDS ORDERED: fentaNYL* 50 MCG/ML 2 ML VIAL (100 MCG VIAL) ONE (13:47)
[2019-02-13] MEDS ORDERED: ceFAZolin 1 GM in Dextrose (*) 1 GM/50 ML BAG IVPB ONE (15:00)
[2019-02-13] MEDS: Finasteride TAB* 5 MG PO SCH (17:14)
[2019-02-13] MEDS: Tamsulosin CAP* 0.4 MG PO SCH (17:14)
--- NOTE | 2019-02-13 17:15 | PN ---
Subjective Date of Service: 02/13/19 Interval History: Seen after tunnel cath placed No pain at the moment Understands plan at the moment CP free no SOB, N/V, LH Objective Active Medications: Acetaminophen (Tylenol Tab*) 650 mg PO Q4H PRN PRN Reason: FEVER/PAIN Acetylcysteine (Acetylcysteine Inh Yarelis*) 600 mg INH BID [facility] Stop: 02/22/19 09:01 Al Hydrox/Mg Hydrox/Simethicone (Maalox Plus*) 30 ml PO Q6H PRN PRN Reason: INDIGESTION Albuterol (Ventolin Hfa Inhaler*) 1 puff INH Q4H PRN PRN Reason: WHEEZING Amlodipine Besylate (Norvasc Tab*) 10 mg PO BID [facility] Last Admin: 02/13/19 08:43 Dose: 10 mg Aspirin (Aspirin 81 Mg Chew Tab*) 81 mg PO DAILY [facility] Last Admin: 02/13/19 08:49 Dose: Not Given Atorvastatin Calcium (Lipitor*) 40 mg PO DAILY [facility] Last Admin: 02/13/19 08:43 Dose: 40 mg Buspirone HCl (Buspar Tab*) 10 mg PO BID [facility] Last Admin: 02/13/19 08:44 Dose: 10 mg Clonidine HCl (Xrqqujzy-Dgj-9 0.3 Mg Patch*) 0.3 mg TRANSDERM WEEKLY [facility] Clopidogrel Bisulfate (Plavix Tab*) 75 mg PO QAM [facility] Last Admin: 02/13/19 08:43 Dose: 75 mg Dextrose (D50w Syringe 50 Ml*) 12.5 gm IV PUSH .FOR FS < 60 - SS PRN PRN Reason: FS < 60 Docusate Sodium (Colace Cap*) 100 mg PO BID PRN PRN Reason: CONSTIPATION Famotidine (Pepcid Tab*) 20 mg PO EVERY OTHER DAY [facility] Last Admin: 02/13/19 08:43 Dose: 20 mg Finasteride (Proscar Tab*) 5 mg PO QPM [facility] Furosemide (Lasix Tab*) 40 mg PO BID [facility] Last Admin: 02/13/19 08:44 Dose: 40 mg Heparin Sodium (Porcine) (Heparin Vial(*)) 5,000 units SUBCUT Q8HR [facility] Stop: 02/15/19 23:59 Last Admin: 02/13/19 05:22 Dose: 5,000 units Hydralazine HCl (Apresoline Iv*) 5 mg IV SLOW PU Q6H PRN PRN Reason: BLOOD PRESSURE Last Admin: 02/13/19 05:23 Dose: 5 mg Sodium Chloride (Ns 0.9% 1000 Ml) 1,000 mls @ 25 mls/hr IV PER RATE [facility] Insulin Human Lispro (Humalog*) 0 units SUBCUT AC [facility]; Protocol Last Admin: 02/13/19 14:53 Dose: Not Given Isosorbide Mononitrate (Imdur Er Tab*) 240 mg PO DAILY [facility] Last Admin: 02/13/19 08:43 Dose: 240 mg Magnesium Oxide (Magox 400 Tab*) 400 mg PO QAM [facility] Last Admin: 02/13/19 08:44 Dose: 400 mg Metoprolol Succinate (Toprol Xl Tab*) 12.5 mg PO BID [facility] Last Admin: 02/13/19 08:44 Dose: 12.5 mg Minoxidil (Loniten Tab*) 2.5 mg PO BID [facility] Last Admin: 02/13/19 08:43 Dose: 2.5 mg Ondansetron HCl (Zofran Inj*) 4 mg IV Q4H PRN PRN Reason: NAUSEA/VOMITING Senna (Senokot Tab*) 1 tab PO BID PRN PRN Reason: CONSTIPATION Sertraline HCl (Zoloft*) 50 mg PO DAILY [facility] Last Admin: 02/13/19 08:44 Dose: 50 mg Tamsulosin HCl (Flomax Cap*) 0.4 mg PO QPM [facility] Terazosin HCl (Hytrin Cap*) 5 mg PO BEDTIME [facility] Vitamin B Complex/Vitamin E (B Complex-50*) 1 tab PO QAM [facility] Last Admin: 02/13/19 08:43 Dose: 1 tab Vital Signs - 8 hr 02/13/19 11:49 Temperature 97.2 F Pulse Rate 55 Respiratory 18 Rate Blood Pressure 154/63 (mmHg) O2 Sat by Pulse 98 Oximetry Oxygen Devices in Use Now: None Appearance: sitting up, NAD Eyes: No Scleral Icterus, PERRLA Ears/Nose/Mouth/Throat: NL Teeth, Lips, Gums, Clear Oropharnyx Neck: NL Appearance and Movements; NL JVP Respiratory: Symmetrical Chest Expansion and Respiratory Effort, Clear to Auscultation Cardiovascular: RRR Abdominal: NL Sounds; No Tenderness; No Distention, No Hepatosplenomegaly Lymphatic: No Cervical Adenopathy Extremities: No Edema Skin: No Rash or Ulcers Neurological: Alert and Oriented x 3 Lines/Tubes/Other Access: Clean, Dry and Intact Other Access - right chest wall tunnel cath Result Diagrams: 02/13/19 01:23 02/13/19 04:15 Assess/Plan/Problems-Billing Assessment: 63 yo M h/o CAD/CABG with recent NSTEMI this month, CKD stage 5, dCHF, DM2, HOWARD pw chest pain - Patient Problems (1) Unstable angina Comment: plan for LHC on Saturday with Dr. Wasserman Tunnel cath placed 02/13 for HD if needed post procedure ASA, plavix, imdur, statin, norvasc tele monitoring (2) CKD (chronic kidney disease) stage 5, GFR less than 15 ml/min Comment: dose med acordingly tunnel cath in place 02/13 no acute need for HD (3) Diabetes Comment: Lispro SS. (4) Hypertension Comment: hydralazine PRN metoprolol, norvasc, imdur, clonidine, lasix (5) DVT prophylaxis Comment: HSQ
[2019-02-13 17:56] LABS: Troponin I 0.04 ng/mL (<0.04)
[2019-02-13] MEDS: oxyCODONE/Acetamin 5/325 MG* TAB PO PRN (20:37)
[2019-02-13] MEDS: Terazosin CAP* 5 MG PO SCH (20:39)
--- NOTE | 2019-02-13 22:25 | PN ---
PROGRESS NOTE: DATE OF SERVICE: 02/13/19 HISTORY OF PRESENT ILLNESS: Mr. Watson is a gentleman I know from previous consultation and outpat ient management. He had recently been in the office for us to discuss the issue of hemodialysis vers us peritoneal dialysis. At that point, he was leaning towards hemodialysis, but had not made a decis ion to go with dialysis at all. He was readmitted with another episode of significant angina. There is the need to proceed onto cardiac catheterization. I was asked to come over and discuss this with him together with Dr. Patel who was present during our discussion. We discussed the fact that the dye load from cardiac catheterization may precipitate the need for initiation of dialysis. We discus sed potential nephroprotection from Mucomyst. We discussed the need for vascular access, including a tunneled hemodialysis catheter. We discussed the bleeding risk considering that he is on Plavix. Shelley ratliff was quite concerned about the financial aspects of dialysis. He does have Medicare and a secondary coinsurance, so that should not be a problem. He was interested in the potential for travel on hemo dialysis, which I assured him is something that we arrange on a regular basis. I discussed the case w ith Dr. Patel at length in addition to discussing the case with Dr. Jon and Dr. Carter. I feel t hat his situation is urgent enough that we should sustain the risk of proceeding along with his sari ter placement even in the face of continuing Plavix. Dr. Patel was in accord with this and will be speaking himself to Dr. Carter in that regard. In all, we spent about 45 minutes in discussion. [id number]/[facility] #: [id number]
[2019-02-14] MEDS: oxyCODONE/Acetamin 5/325 MG* TAB PO PRN ×3 (05:21→19:29)
[2019-02-14] MEDS: Heparin VIAL(*) 5000 UNITS/ML VIAL (FIVE THOUSAND) SUBCUT SCH ×3 (05:22→22:11)
[2019-02-14 06:53] LABS: BUN/Creatinine Ratio 16.9 (8-20); Calcium 8.3 mg/dL (8.6-10.3); EGFR African American 13.6 (>60); EGFR Non-African American 11.3 (>60)
[2019-02-14] MEDS ORDERED: Dextrose 50% Syringe 50 ML* 25 GM/50 ML SYRINGE IV PUSH PRN (08:54)
[2019-02-14] MEDS: Aspirin 81 mg CHEW TAB* 81 MG TAB.CHEW PO SCH (09:18)
[2019-02-14] MEDS: Isosorbide Mononitrate ER TAB* 60 MG PO SCH (09:18)
[2019-02-14] MEDS: busPIRone TAB* 10 MG PO SCH ×2 (09:18→22:09)
[2019-02-14] MEDS: Vitamin B Complex TAB PO SCH (09:18)
[2019-02-14] MEDS: Clopidogrel TAB* 75 MG PO SCH (09:18)
[2019-02-14] MEDS: amLODIPine TAB* 5 MG PO SCH ×2 (09:19→22:09)
[2019-02-14] MEDS: Sertraline* 50 MG TAB PO SCH (09:19)
[2019-02-14] MEDS: Magnesium Oxide TAB* 400 MG PO SCH (09:19)
[2019-02-14] MEDS: Metoprolol Succinate XL TAB* 25 MG PO SCH (09:19)
[2019-02-14] MEDS: Furosemide TAB* 40 MG PO SCH ×2 (09:19→22:10)
[2019-02-14] MEDS: Atorvastatin* 40 MG TAB PO SCH (09:19)
[2019-02-14] MEDS: MinoXIDil TAB* 2.5 MG TAB PO SCH ×2 (09:19→22:11)
[2019-02-14] MEDS: Insulin LISPRO* 1 UNITS UNIT SUBCUT SCH ×6 (09:20→22:12)
[2019-02-14] MEDS: ACETYLCYSTEINE 200 MG/ML INH SCH ×2 (11:24→22:48)
--- NOTE | 2019-02-14 15:49 | PN ---
Subjective Date of Service: 02/14/19 Interval History: Was angered by delay between asking for and receiving medication overnight we discussed and his pain is better controlled now We also discussed the added stress/anxiety inherent in being hospitalized especially with this major intervention and possibility of HD Today is his birthday and his has brought him cheese cake Objective Active Medications: Acetaminophen (Tylenol Tab*) 650 mg PO Q4H PRN PRN Reason: FEVER/PAIN Last Admin: 02/14/19 09:19 Dose: 650 mg Acetylcysteine (Acetylcysteine Inh Yarelis*) 600 mg INH BID [facility] Stop: 02/22/19 09:01 Last Admin: 02/14/19 11:24 Dose: 600 mg Al Hydrox/Mg Hydrox/Simethicone (Maalox Plus*) 30 ml PO Q6H PRN PRN Reason: INDIGESTION Albuterol (Ventolin Hfa Inhaler*) 1 puff INH Q4H PRN PRN Reason: WHEEZING Amlodipine Besylate (Norvasc Tab*) 10 mg PO BID [facility] Last Admin: 02/14/19 09:19 Dose: 10 mg Aspirin (Aspirin 81 Mg Chew Tab*) 81 mg PO DAILY [facility] Last Admin: 02/14/19 09:18 Dose: 81 mg Atorvastatin Calcium (Lipitor*) 40 mg PO DAILY [facility] Last Admin: 02/14/19 09:19 Dose: 40 mg Buspirone HCl (Buspar Tab*) 10 mg PO BID [facility] Last Admin: 02/14/19 09:18 Dose: 10 mg Clonidine HCl (Mlybzaiw-Srq-5 0.3 Mg Patch*) 0.3 mg TRANSDERM WEEKLY [facility] Clopidogrel Bisulfate (Plavix Tab*) 75 mg PO QAM [facility] Last Admin: 02/14/19 09:18 Dose: 75 mg Dextrose (D50w Syringe 50 Ml*) 12.5 gm IV PUSH .FOR FS < 60 - SS PRN PRN Reason: FS < 60 Dextrose (D50w Syringe 50 Ml*) 12.5 gm IV PUSH .FOR FS < 60 - SS PRN PRN Reason: FS < 60 Docusate Sodium (Colace Cap*) 100 mg PO BID PRN PRN Reason: CONSTIPATION Famotidine (Pepcid Tab*) 20 mg PO EVERY OTHER DAY [facility] Last Admin: 02/13/19 08:43 Dose: 20 mg Finasteride (Proscar Tab*) 5 mg PO QPM [facility] Last Admin: 02/13/19 17:14 Dose: 5 mg Furosemide (Lasix Tab*) 40 mg PO BID [facility] Last Admin: 02/14/19 09:19 Dose: 40 mg Heparin Sodium (Porcine) (Heparin Vial(*)) 5,000 units SUBCUT Q8HR [facility] Stop: 02/15/19 23:59 Last Admin: 02/14/19 14:32 Dose: 5,000 units Hydralazine HCl (Apresoline Iv*) 5 mg IV SLOW PU Q6H PRN PRN Reason: BLOOD PRESSURE Last Admin: 02/13/19 05:23 Dose: 5 mg Sodium Chloride (Ns 0.9% 1000 Ml) 1,000 mls @ 25 mls/hr IV PER RATE [facility] Insulin Human Lispro (Humalog*) 0 units SUBCUT AC [facility]; Protocol Last Admin: 02/14/19 14:26 Dose: Not Given Insulin Human Lispro (Humalog*) 0 units SUBCUT ACHS [facility]; Protocol Last Admin: 02/14/19 14:31 Dose: 4 units Isosorbide Mononitrate (Imdur Er Tab*) 240 mg PO DAILY [facility] Last Admin: 02/14/19 09:18 Dose: 240 mg Magnesium Oxide (Magox 400 Tab*) 400 mg PO QAM [facility] Last Admin: 02/14/19 09:19 Dose: 400 mg Metoprolol Succinate (Toprol Xl Tab*) 12.5 mg PO BID [facility] Last Admin: 02/14/19 09:19 Dose: Not Given Minoxidil (Loniten Tab*) 2.5 mg PO BID [facility] Last Admin: 02/14/19 09:19 Dose: 2.5 mg Ondansetron HCl (Zofran Inj*) 4 mg IV Q4H PRN PRN Reason: NAUSEA/VOMITING Oxycodone/Acetaminophen (Percocet 5/325 Tab*) 1 tab PO Q6H PRN PRN Reason: PAIN Last Admin: 02/14/19 11:25 Dose: 1 tab Senna (Senokot Tab*) 1 tab PO BID PRN PRN Reason: CONSTIPATION Sertraline HCl (Zoloft*) 50 mg PO DAILY [facility] Last Admin: 02/14/19 09:19 Dose: 50 mg Tamsulosin HCl (Flomax Cap*) 0.4 mg PO QPM [facility] Last Admin: 02/13/19 17:14 Dose: 0.4 mg Terazosin HCl (Hytrin Cap*) 5 mg PO BEDTIME [facility] Last Admin: 02/13/19 20:39 Dose: 5 mg Vitamin B Complex/Vitamin E (B Complex-50*) 1 tab PO QAM [facility] Last Admin: 02/14/19 09:18 Dose: 1 tab Vital Signs - 8 hr 02/14/19 02/14/19 02/14/19 08:00 08:39 09:21 Temperature 97.9 F Pulse Rate 64 Respiratory 16 16 16 Rate Blood Pressure 175/83 (mmHg) O2 Sat by Pulse 95 Oximetry 02/14/19 02/14/19 02/14/19 11:10 11:25 13:23 Temperature 97.8 F Pulse Rate 62 Respiratory 16 18 16 Rate Blood Pressure 144/75 (mmHg) O2 Sat by Pulse 94 Oximetry Oxygen Devices in Use Now: None Appearance: NAD Eyes: No Scleral Icterus, PERRLA Ears/Nose/Mouth/Throat: NL Teeth, Lips, Gums, Clear Oropharnyx Neck: NL Appearance and Movements; NL JVP, Trachea Midline Respiratory: Symmetrical Chest Expansion and Respiratory Effort, Clear to Auscultation Cardiovascular: RRR Abdominal: NL Sounds; No Tenderness; No Distention, No Hepatosplenomegaly Lymphatic: No Cervical Adenopathy Extremities: No Edema Skin: No Rash or Ulcers Neurological: Alert and Oriented x 3 Result Diagrams: 02/13/19 01:23 02/14/19 05:54 Assess/Plan/Problems-Billing Assessment: 63 yo M h/o CAD/CABG with recent NSTEMI this month, CKD stage 5, dCHF, DM2, HOWARD pw chest pain - Patient Problems (1) Sinus pause Comment: Multiple <2 sec pauses today Will decrease metoprolol to daily Had issues with bradycardia previously (2) Unstable angina Comment: plan for LHC on Saturday with Dr. Wasserman Tunnel cath placed 02/13 for HD if needed post procedure ASA, plavix, imdur, statin, norvasc tele monitoring (3) CKD (chronic kidney disease) stage 5, GFR less than 15 ml/min Comment: dose med accordingly tunnel cath in place 02/13 no acute need for HD (4) Diabetes Comment: Lispro SS. (5) Hypertension Comment: hydralazine PRN metoprolol, norvasc, imdur, clonidine, lasix agree with Dr. Menchaca a renal artery US may be of use to evaluate his HTN Volume may be contributing with CKF and will monitor for improvement after initiation (6) DVT prophylaxis Comment: HSQ
[2019-02-14] MEDS: Tamsulosin CAP* 0.4 MG PO SCH (18:00)
[2019-02-14] MEDS: Finasteride TAB* 5 MG PO SCH (18:00)
[2019-02-14] MEDS: Terazosin CAP* 5 MG PO SCH (22:10)
[2019-02-14] MEDS: Acetylcysteine CAP (RENAL)* 600 MG PO SCH (22:17)
[2019-02-15] MEDS: oxyCODONE/Acetamin 5/325 MG* TAB PO PRN ×3 (02:50→18:06)
[2019-02-15] MEDS: Heparin VIAL(*) 5000 UNITS/ML VIAL (FIVE THOUSAND) SUBCUT SCH ×3 (07:09→21:38)
[2019-02-15] MEDS: Insulin LISPRO* 1 UNITS UNIT SUBCUT SCH ×7 (07:57→21:42)
[2019-02-15] MEDS ORDERED: Metoprolol Succinate XL TAB* 25 MG PO SCH (09:00)
[2019-02-15] MEDS: busPIRone TAB* 10 MG PO SCH ×2 (09:34→21:38)
[2019-02-15] MEDS: Aspirin 81 mg CHEW TAB* 81 MG TAB.CHEW PO SCH (09:34)
[2019-02-15] MEDS: amLODIPine TAB* 5 MG PO SCH ×2 (09:34→21:38)
[2019-02-15] MEDS: Magnesium Oxide TAB* 400 MG PO SCH (09:34)
[2019-02-15] MEDS: Furosemide TAB* 40 MG PO SCH ×2 (09:34→21:37)
[2019-02-15] MEDS: Isosorbide Mononitrate ER TAB* 60 MG PO SCH (09:35)
[2019-02-15] MEDS: Famotidine TAB* 20 MG PO SCH (09:35)
[2019-02-15] MEDS: Atorvastatin* 40 MG TAB PO SCH (09:35)
[2019-02-15] MEDS: Sertraline* 50 MG TAB PO SCH (09:35)
[2019-02-15] MEDS: Vitamin B Complex TAB PO SCH (09:35)
[2019-02-15] MEDS: Clopidogrel TAB* 75 MG PO SCH (09:35)
[2019-02-15] MEDS: Acetylcysteine CAP (RENAL)* 600 MG PO SCH ×2 (09:36→21:38)
[2019-02-15] MEDS: MinoXIDil TAB* 2.5 MG TAB PO SCH ×2 (09:40→21:38)
--- NOTE | 2019-02-15 17:11 | PN ---
Subjective Date of Service: 02/15/19 Interval History: No chest pain Howard overnight to 40s with idioventricular rhythm (wenkebach?) Objective Active Medications: Acetaminophen (Tylenol Tab*) 650 mg PO Q4H PRN PRN Reason: FEVER/PAIN Last Admin: 02/14/19 09:19 Dose: 650 mg Acetylcysteine (Acetylcysteine Cap (Renal)*) 600 mg PO BID [facility] Stop: 02/22/19 09:01 Last Admin: 02/15/19 09:36 Dose: 600 mg Al Hydrox/Mg Hydrox/Simethicone (Maalox Plus*) 30 ml PO Q6H PRN PRN Reason: INDIGESTION Albuterol (Ventolin Hfa Inhaler*) 1 puff INH Q4H PRN PRN Reason: WHEEZING Amlodipine Besylate (Norvasc Tab*) 10 mg PO BID [facility] Last Admin: 02/15/19 09:34 Dose: 10 mg Aspirin (Aspirin 81 Mg Chew Tab*) 81 mg PO DAILY [facility] Last Admin: 02/15/19 09:34 Dose: 81 mg Atorvastatin Calcium (Lipitor*) 40 mg PO DAILY [facility] Last Admin: 02/15/19 09:35 Dose: 40 mg Buspirone HCl (Buspar Tab*) 10 mg PO BID [facility] Last Admin: 02/15/19 09:34 Dose: 10 mg Clonidine HCl (Aqvqwlyf-Wtv-6 0.3 Mg Patch*) 0.3 mg TRANSDERM WEEKLY [facility] Clopidogrel Bisulfate (Plavix Tab*) 75 mg PO QAM [facility] Last Admin: 02/15/19 09:35 Dose: 75 mg Dextrose (D50w Syringe 50 Ml*) 12.5 gm IV PUSH .FOR FS < 60 - SS PRN PRN Reason: FS < 60 Dextrose (D50w Syringe 50 Ml*) 12.5 gm IV PUSH .FOR FS < 60 - SS PRN PRN Reason: FS < 60 Docusate Sodium (Colace Cap*) 100 mg PO BID PRN PRN Reason: CONSTIPATION Famotidine (Pepcid Tab*) 20 mg PO EVERY OTHER DAY [facility] Last Admin: 02/15/19 09:35 Dose: 20 mg Finasteride (Proscar Tab*) 5 mg PO QPM [facility] Last Admin: 02/14/19 18:00 Dose: 5 mg Furosemide (Lasix Tab*) 40 mg PO BID [facility] Last Admin: 02/15/19 09:34 Dose: 40 mg Heparin Sodium (Porcine) (Heparin Vial(*)) 5,000 units SUBCUT Q8HR [facility] Stop: 02/15/19 23:59 Last Admin: 02/15/19 13:32 Dose: 5,000 units Hydralazine HCl (Apresoline Iv*) 5 mg IV SLOW PU Q6H PRN PRN Reason: BLOOD PRESSURE Last Admin: 02/13/19 05:23 Dose: 5 mg Sodium Chloride (Ns 0.9% 1000 Ml) 1,000 mls @ 100 mls/hr IV PER RATE [facility] Insulin Human Lispro (Humalog*) 0 units SUBCUT AC [facility]; Protocol Last Admin: 02/15/19 13:32 Dose: 4 unit Insulin Human Lispro (Humalog*) 0 units SUBCUT ACHS [facility]; Protocol Last Admin: 02/15/19 11:57 Dose: Not Given Isosorbide Mononitrate (Imdur Er Tab*) 240 mg PO DAILY [facility] Last Admin: 02/15/19 09:35 Dose: 240 mg Magnesium Oxide (Magox 400 Tab*) 400 mg PO QAM [facility] Last Admin: 02/15/19 09:34 Dose: 400 mg Minoxidil (Loniten Tab*) 2.5 mg PO BID [facility] Last Admin: 02/15/19 09:40 Dose: 2.5 mg Ondansetron HCl (Zofran Inj*) 4 mg IV Q4H PRN PRN Reason: NAUSEA/VOMITING Oxycodone/Acetaminophen (Percocet 5/325 Tab*) 1 tab PO Q6H PRN PRN Reason: PAIN Last Admin: 02/15/19 11:57 Dose: 1 tab Senna (Senokot Tab*) 1 tab PO BID PRN PRN Reason: CONSTIPATION Sertraline HCl (Zoloft*) 50 mg PO DAILY [facility] Last Admin: 02/15/19 09:35 Dose: 50 mg Tamsulosin HCl (Flomax Cap*) 0.4 mg PO QPM [facility] Last Admin: 02/14/19 18:00 Dose: 0.4 mg Terazosin HCl (Hytrin Cap*) 5 mg PO BEDTIME [facility] Last Admin: 02/14/19 22:10 Dose: 5 mg Vitamin B Complex/Vitamin E (B Complex-50*) 1 tab PO QAM [facility] Last Admin: 02/15/19 09:35 Dose: 1 tab Vital Signs - 8 hr 02/15/19 02/15/19 02/15/19 10:59 11:57 13:34 Temperature 97.4 F Pulse Rate 63 Respiratory 16 16 16 Rate Blood Pressure 159/72 (mmHg) O2 Sat by Pulse 95 Oximetry 02/15/19 15:53 Temperature 97.9 F Pulse Rate 48 Respiratory 16 Rate Blood Pressure 155/59 (mmHg) O2 Sat by Pulse 96 Oximetry Oxygen Devices in Use Now: None Appearance: sitting in chair, NAD Eyes: No Scleral Icterus, PERRLA Ears/Nose/Mouth/Throat: NL Teeth, Lips, Gums, Clear Oropharnyx Neck: NL Appearance and Movements; NL JVP, Trachea Midline Respiratory: Symmetrical Chest Expansion and Respiratory Effort, Clear to Auscultation Cardiovascular: RRR Abdominal: NL Sounds; No Tenderness; No Distention, No Hepatosplenomegaly Lymphatic: No Cervical Adenopathy Extremities: No Edema Skin: No Rash or Ulcers Neurological: Alert and Oriented x 3 Result Diagrams: 02/13/19 01:23 02/14/19 05:54 Assess/Plan/Problems-Billing Assessment: 63 yo M h/o CAD/CABG with recent NSTEMI this month, CKD stage 5, dCHF, DM2, HOWARD pw chest pain - Patient Problems (1) Sinus pause Comment: now bradycardia decreased torpol now stop metoprolol Had issues with bradycardia previously (2) Unstable angina Comment: plan for LHC on Saturday with Dr. Wasserman Tunnel cath placed 02/13 for HD if needed post procedure ASA, plavix, imdur, statin, norvasc metoprolol discontinuned for bradycardia tele monitoring (3) CKD (chronic kidney disease) stage 5, GFR less than 15 ml/min Comment: dose med accordingly tunnel cath in place 02/13 no acute need for HD (4) Diabetes Comment: Lispro SS. (5) Hypertension Comment: hydralazine PRN norvasc, imdur, clonidine, lasix agree with Dr. Menchaca a renal artery US may be of use to evaluate his HTN Volume may be contributing with CKF and will monitor for improvement after initiation (6) DVT prophylaxis Comment: HSQ
[2019-02-15] MEDS: Finasteride TAB* 5 MG PO SCH (18:06)
[2019-02-15] MEDS: Tamsulosin CAP* 0.4 MG PO SCH (18:06)
[2019-02-15] MEDS: Terazosin CAP* 5 MG PO SCH (21:37)
[2019-02-16] MEDS: oxyCODONE/Acetamin 5/325 MG* TAB PO PRN ×2 (00:05→20:56)
[2019-02-16 06:04] LABS: BUN/Creatinine Ratio 15.4 (8-20); Calcium 8.4 mg/dL (8.6-10.3); EGFR African American 12.5 (>60); EGFR Non-African American 10.3 (>60); Potassium 4.4 mmol/L (3.5-5.0)
[2019-02-16] MEDS: Insulin LISPRO* 1 UNITS UNIT SUBCUT SCH ×7 (07:26→20:49)
[2019-02-16] MEDS ORDERED: NS 0.9% 1000 ML** 1,000 ML IV SCH ×2 (08:00)
[2019-02-16] MEDS: MinoXIDil TAB* 2.5 MG TAB PO SCH ×2 (09:42→20:50)
[2019-02-16] MEDS: Furosemide TAB* 40 MG PO SCH ×2 (09:42→19:28)
[2019-02-16] MEDS: busPIRone TAB* 10 MG PO SCH ×2 (09:42→19:27)
[2019-02-16] MEDS: Acetylcysteine CAP (RENAL)* 600 MG PO SCH ×2 (09:42→20:50)
[2019-02-16] MEDS: Atorvastatin* 40 MG TAB PO SCH (09:43)
[2019-02-16] MEDS: Sertraline* 50 MG TAB PO SCH (09:44)
[2019-02-16] MEDS: Clopidogrel TAB* 75 MG PO SCH (09:44)
[2019-02-16] MEDS: amLODIPine TAB* 5 MG PO SCH ×2 (09:44→19:27)
[2019-02-16] MEDS: Magnesium Oxide TAB* 400 MG PO SCH (09:45)
[2019-02-16] MEDS: Isosorbide Mononitrate ER TAB* 60 MG PO SCH (09:45)
[2019-02-16] MEDS: Aspirin 81 mg CHEW TAB* 81 MG TAB.CHEW PO SCH (09:45)
[2019-02-16] MEDS: Vitamin B Complex TAB PO SCH (09:46)
--- NOTE | 2019-02-16 10:35 | PN ---
Subjective Date of Service: 02/16/19 Interval History: Mr. Watson feels "whatever." He denies feeling upset about starting HD today , but is clearly listless and says he feels like a guinea pig. He has had no further chest pain. He denies change in urine output. He has no other complaints. Objective Active Medications: Acetaminophen (Tylenol Tab*) 650 mg PO Q4H PRN PRN Reason: FEVER/PAIN Last Admin: 02/14/19 09:19 Dose: 650 mg Acetylcysteine (Acetylcysteine Cap (Renal)*) 600 mg PO BID [facility] Stop: 02/22/19 09:01 Last Admin: 02/16/19 09:42 Dose: 600 mg Al Hydrox/Mg Hydrox/Simethicone (Maalox Plus*) 30 ml PO Q6H PRN PRN Reason: INDIGESTION Albuterol (Ventolin Hfa Inhaler*) 1 puff INH Q4H PRN PRN Reason: WHEEZING Amlodipine Besylate (Norvasc Tab*) 10 mg PO BID [facility] Last Admin: 02/16/19 09:44 Dose: 10 mg Aspirin (Aspirin 81 Mg Chew Tab*) 81 mg PO DAILY [facility] Last Admin: 02/16/19 09:45 Dose: 81 mg Atorvastatin Calcium (Lipitor*) 40 mg PO DAILY [facility] Last Admin: 02/16/19 09:43 Dose: 40 mg Buspirone HCl (Buspar Tab*) 10 mg PO BID [facility] Last Admin: 02/16/19 09:42 Dose: 10 mg Clonidine HCl (Hnsiwasr-Bmh-3 0.3 Mg Patch*) 0.3 mg TRANSDERM WEEKLY [facility] Clopidogrel Bisulfate (Plavix Tab*) 75 mg PO QAM [facility] Last Admin: 02/16/19 09:44 Dose: 75 mg Dextrose (D50w Syringe 50 Ml*) 12.5 gm IV PUSH .FOR FS < 60 - SS PRN PRN Reason: FS < 60 Dextrose (D50w Syringe 50 Ml*) 12.5 gm IV PUSH .FOR FS < 60 - SS PRN PRN Reason: FS < 60 Docusate Sodium (Colace Cap*) 100 mg PO BID PRN PRN Reason: CONSTIPATION Famotidine (Pepcid Tab*) 20 mg PO EVERY OTHER DAY [facility] Last Admin: 02/15/19 09:35 Dose: 20 mg Finasteride (Proscar Tab*) 5 mg PO QPM [facility] Last Admin: 02/15/19 18:06 Dose: 5 mg Furosemide (Lasix Tab*) 40 mg PO BID [facility] Last Admin: 02/16/19 09:42 Dose: 40 mg Hydralazine HCl (Apresoline Iv*) 5 mg IV SLOW PU Q6H PRN PRN Reason: BLOOD PRESSURE Last Admin: 02/13/19 05:23 Dose: 5 mg Sodium Chloride (Ns 0.9% 1000 Ml) 1,000 mls @ 100 mls/hr IV PER RATE [facility] Insulin Human Lispro (Humalog*) 0 units SUBCUT AC [facility]; Protocol Last Admin: 02/16/19 07:26 Dose: Not Given Insulin Human Lispro (Humalog*) 0 units SUBCUT ACHS [facility]; Protocol Last Admin: 02/16/19 07:28 Dose: Not Given Isosorbide Mononitrate (Imdur Er Tab*) 240 mg PO DAILY [facility] Last Admin: 02/16/19 09:45 Dose: 240 mg Magnesium Oxide (Magox 400 Tab*) 400 mg PO QAM [facility] Last Admin: 02/16/19 09:45 Dose: 400 mg Minoxidil (Loniten Tab*) 2.5 mg PO BID [facility] Last Admin: 02/16/19 09:42 Dose: 2.5 mg Ondansetron HCl (Zofran Inj*) 4 mg IV Q4H PRN PRN Reason: NAUSEA/VOMITING Oxycodone/Acetaminophen (Percocet 5/325 Tab*) 1 tab PO Q6H PRN PRN Reason: PAIN Last Admin: 02/16/19 00:05 Dose: 1 tab Senna (Senokot Tab*) 1 tab PO BID PRN PRN Reason: CONSTIPATION Sertraline HCl (Zoloft*) 50 mg PO DAILY [facility] Last Admin: 02/16/19 09:44 Dose: 50 mg Tamsulosin HCl (Flomax Cap*) 0.4 mg PO QPM [facility] Last Admin: 02/15/19 18:06 Dose: 0.4 mg Terazosin HCl (Hytrin Cap*) 5 mg PO BEDTIME [facility] Last Admin: 02/15/19 21:37 Dose: 5 mg Vitamin B Complex/Vitamin E (B Complex-50*) 1 tab PO QAM [facility] Last Admin: 02/16/19 09:46 Dose: 1 tab Vital Signs - 8 hr 02/16/19 02/16/19 02/16/19 03:33 07:20 07:38 Temperature 97.6 F 97.9 F Pulse Rate 50 54 Respiratory 16 16 20 Rate Blood Pressure 160/72 167/69 (mmHg) O2 Sat by Pulse 93 95 Oximetry Oxygen Devices in Use Now: None Appearance: depressed appearing, comfortable resting in recliner Eyes: No Scleral Icterus Ears/Nose/Mouth/Throat: NL Teeth, Lips, Gums Neck: - - R chest wall permcath Respiratory: Symmetrical Chest Expansion and Respiratory Effort Cardiovascular: NL Sounds; No Murmurs; No JVD, RRR Abdominal: NL Sounds; No Tenderness; No Distention Lymphatic: No Cervical Adenopathy Extremities: - - 1+ edema b/l legs to knees Neurological: Alert and Oriented x 3 Result Diagrams: 02/13/19 01:23 02/16/19 05:15 Assess/Plan/Problems-Billing Assessment: 63 yo M h/o CAD/CABG with recent NSTEMI this month, CKD stage 5, dCHF, DM2, HOWARD pw chest pain - Patient Problems (1) CKD (chronic kidney disease) stage 5, GFR less than 15 ml/min Current Visit: Yes Status: Acute Code(s): N18.5 - CHRONIC KIDNEY DISEASE, STAGE 5 SNOMED Code(s): 747904456 Comment: 1st session of HD planned for today n-acetylcysteine pre-C volume and lytes okay (2) Unstable angina Current Visit: Yes Status: Acute Code(s): I20.0 - UNSTABLE ANGINA SNOMED Code(s): 3103423 Comment: [facility] today ASA, plavix, imdur, statin, norvasc metoprolol discontinuned for bradycardia tele monitoring (3) Diabetes Current Visit: Yes Status: Acute Code(s): E11.9 - TYPE 2 DIABETES MELLITUS WITHOUT COMPLICATIONS SNOMED Code(s): 70215170 Comment: Lispro SS. (4) Hypertension Current Visit: Yes Status: Acute Code(s): I10 - ESSENTIAL (PRIMARY) HYPERTENSION SNOMED Code(s): 76929375 Comment: hydralazine PRN norvasc, imdur, clonidine, lasix Volume may be contributing with CKF and will monitor for improvement after initiation (5) Sinus pause Current Visit: Yes Status: Acute Code(s): I45.5 - OTHER SPECIFIED HEART BLOCK SNOMED Code(s): 35125210 Comment: now bradycardia Had issues with bradycardia previously on BB; now all discontinued
[2019-02-16 12:08] LABS: Hepatitis B Surface Antigen Nonreactive (Nonreactive)
[2019-02-16 12:34] LABS: Hepatitis C Antibody Nonreactive (Nonreactive)
[2019-02-16 12:53] LABS: Hepatitis B Surface AB Not Immune (Immune)
[2019-02-16] MEDS ORDERED: fentaNYL* 50 MCG/ML 2 ML VIAL (100 MCG VIAL) ONE (13:58)
[2019-02-16] MEDS ORDERED: Lidocaine 1% INJ* 10 MG/ML 30 ML SDV ONE (13:58)
[2019-02-16] MEDS ORDERED: Midazolam* 1 MG/ML 5 ML VIAL (5 MG) ONE (13:58)
[2019-02-16] MEDS ORDERED: Iohexol 350 (CONTRAST) 200 ML MDV IV ONE (13:59)
[2019-02-16] MEDS ORDERED: Heparin 2 UNITS/ML IVPREMIX* 2,000 UNIT/1,000 ML BAG IV ONE (14:00)
[2019-02-16] MEDS ORDERED: Ticagrelor* 90 MG TAB PO ONE (14:47)
[2019-02-16] MEDS ORDERED: Iodixanol 320 (CONTRAST) 100 ML SDV ONE (14:47)
[2019-02-16] MEDS ORDERED: Adenosine* 3 MG/ML VIAL ONE (14:48)
[2019-02-16] MEDS ORDERED: Heparin(*) 1000 UNIT/ML 10 ML VIAL CATH LAB IV ONE ×2 (14:49→15:15)
[2019-02-16] MEDS ORDERED: nitroGLYCERIN DRIP* 25,000 MCG/250 ML BTL ONE ×2 (14:51→14:59)
[2019-02-16] MEDS ORDERED: NitroPRUSSide* 25 MG/ML 2 ML VIAL IVPB ONE (14:53)
[2019-02-16] MEDS ORDERED: Bivalirudin(*) 250 MG VIAL ONE (15:59)
[2019-02-16] MEDS ORDERED: Nitroglycerin TAB 0.4 MG* 0.4 MG TAB SL PRN (17:15)
[2019-02-16 18:06] LABS: Creatine Kinase 31 U/L (10-223)
[2019-02-16 18:11] LABS: CKMB ng/mL 1.5 ng/mL (0.6-6.3)
[2019-02-16 18:13] LABS: Troponin I 0.04 ng/mL (<0.04)
[2019-02-16] MEDS: hydrALAZINE IV* 20 MG/ML VIAL IV SLOW PU PRN (19:19)
[2019-02-16] MEDS: Finasteride TAB* 5 MG PO SCH (19:28)
[2019-02-16] MEDS: Terazosin CAP* 5 MG PO SCH (19:28)
[2019-02-16] MEDS: Tamsulosin CAP* 0.4 MG PO SCH (19:28)
[2019-02-16] MEDS ORDERED: nitroGLYCERIN DRIP* 25,000 MCG/250 ML BTL IV SCH (19:30)
--- NOTE | 2019-02-16 21:09 | PN ---
PROGRESS NOTE: DATE OF VISIT: 02/16/19 Hemodialysis Visit The patient was seen and examined at bedside. Discussed dialysis with the patient, participation with Dr. Byers. Dr. Byers has had a detailed discussion about dialysis with the patient before. The patient was a little upset that he is starting dialysis today, but he understands that he needs it. The patient is scheduled for a heart cath later today. The patient was examined at bedside. Please note this will be the patient's first dialysis session. The patient had a catheter placed on Saturday. As this is his first session, we will start off with blood flow rate of 250, dialysate rate of 500 mL per minute, 2.5 calcium, 38 bicarb. We will avoid using heparin during dialysis in light of his scheduled cardiac catheterization. Also, we will not take any fluid off in his first treatment, can tackle fluid removal more aggressively with further treatments. The patient is scheduled for cardiac catheterization for unstable angina symptoms later. [id number]/[facility] #: [id number]
[2019-02-17 00:01] LABS: CKMB ng/mL 4.2 ng/mL (0.6-6.3)
[2019-02-17 00:05] LABS: Troponin I 0.25 ng/mL (<0.04)
[2019-02-17] MEDS: Ticagrelor* 90 MG TAB PO SCH ×2 (05:51→20:54)
[2019-02-17 06:02] LABS: ABS Basophils 0 10^3/ul (0-0.2); ABS Eosinophils 0.2 10^3/ul (0-0.6); ABS Lymphocytes 0.8 10^3/ul (1.0-4.8); ABS Monocytes 0.5 10^3/ul (0-0.8); ABS Neutrophils 3.8 10^3/ul (1.5-7.7); ABS Nucleated RBC 0 10^3/ul; Eosinophil % 3.7 %; Hematocrit 29 % (36-46); Hemoglobin 9.6 g/dL (14.0-18.0); Lymphocyte % 15.5 %; Mean Corpuscular HGB Conc 34 g/dL (31-36); Mean Corpuscular Hemoglobin 27 pg (27-31); Mean Corpuscular Volume 81 fL (80-94); Nucleated Red Blood Cells % 0.1; Platelet Count 146 10^3/uL (150-450); Red Blood Count 3.52 10^6 /uL (4.18-5.48); Red Cell Distribution Width 14 % (10.5-15); White Blood Count 5.3 10^3/uL (3.5-10.8)
[2019-02-17 06:24] LABS: Albumin 3.4 g/dL (3.2-5.2); Albumin/Globulin Ratio 1.5 (1-3); BUN/Creatinine Ratio 12.5 (8-20); Calcium 8.2 mg/dL (8.6-10.3); EGFR African American 17.1 (>60); EGFR Non-African American 14.1 (>60); Globulin 2.3 g/dL (2-4); HDL Cholesterol 35.9 mg/dL; Magnesium 2.1 mg/dL (1.9-2.7); Phosphorus 5.3 mg/dL (2.5-5.0); Potassium 4.1 mmol/L (3.5-5.0); Total Bilirubin 0.8 mg/dL (0.2-1.0); Total Protein 5.7 g/dL (6.4-8.9)
[2019-02-17] MEDS: hydrALAZINE IV* 20 MG/ML VIAL IV SLOW PU PRN (06:41)
[2019-02-17] MEDS: Insulin LISPRO* 1 UNITS UNIT SUBCUT SCH ×7 (07:47→20:56)
[2019-02-17] MEDS: Atorvastatin* 40 MG TAB PO SCH (08:07)
[2019-02-17] MEDS: Famotidine TAB* 20 MG PO SCH (08:07)
[2019-02-17] MEDS: Vitamin B Complex TAB PO SCH (08:07)
[2019-02-17] MEDS: Aspirin 81 mg CHEW TAB* 81 MG TAB.CHEW PO SCH (08:07)
[2019-02-17] MEDS: busPIRone TAB* 10 MG PO SCH ×2 (08:07→20:55)
[2019-02-17] MEDS: Magnesium Oxide TAB* 400 MG PO SCH (08:07)
[2019-02-17] MEDS: Sertraline* 50 MG TAB PO SCH (08:08)
[2019-02-17] MEDS: amLODIPine TAB* 5 MG PO SCH ×2 (08:08→20:54)
[2019-02-17] MEDS: Isosorbide Mononitrate ER TAB* 60 MG PO SCH (08:08)
[2019-02-17] MEDS: Furosemide TAB* 40 MG PO SCH ×2 (08:08→20:55)
[2019-02-17] MEDS: Acetylcysteine CAP (RENAL)* 600 MG PO SCH (08:08)
[2019-02-17] MEDS: MinoXIDil TAB* 2.5 MG TAB PO SCH ×2 (08:09→20:55)
[2019-02-17] MEDS: oxyCODONE/Acetamin 5/325 MG* TAB PO PRN ×2 (08:17→21:43)
--- NOTE | 2019-02-17 08:47 | PN ---
<ZhouAmy - Last Filed: 02/17/19 08:42> Subjective Date of Service: 02/17/19 - s/p DESx2 to free left radial graft to PDA on 2018 Interval History: No events last night. Patient lying in bed upon entering room. States he started to develop dyspnea this morning. denies chest pain, dizziness, palpitations, sensation of heart racing. He has consumed a small portion of coffee that was given to him, he was encouraged to finish it. He is aware Brilinta can cause dyspnea. He has not been OOB to chair since PCI. Medications Active Medications: Acetaminophen (Tylenol Tab*) 650 mg PO Q4H PRN PRN Reason: FEVER/PAIN Last Admin: 02/14/19 09:19 Dose: 650 mg Acetylcysteine (Acetylcysteine Cap (Renal)*) 600 mg PO BID [facility] Stop: 02/22/19 09:01 Last Admin: 02/17/19 08:08 Dose: 600 mg Al Hydrox/Mg Hydrox/Simethicone (Maalox Plus*) 30 ml PO Q6H PRN PRN Reason: INDIGESTION Albuterol (Ventolin Hfa Inhaler*) 1 puff INH Q4H PRN PRN Reason: WHEEZING Amlodipine Besylate (Norvasc Tab*) 10 mg PO BID [facility] Last Admin: 02/17/19 08:08 Dose: 10 mg Aspirin (Aspirin 81 Mg Chew Tab*) 81 mg PO DAILY [facility] Last Admin: 02/17/19 08:07 Dose: 81 mg Atorvastatin Calcium (Lipitor*) 40 mg PO DAILY [facility] Last Admin: 02/17/19 08:07 Dose: 40 mg Buspirone HCl (Buspar Tab*) 10 mg PO BID [facility] Last Admin: 02/17/19 08:07 Dose: 10 mg Clonidine HCl ([id number]-Sod-0 0.3 Mg Patch*) 0.3 mg TRANSDERM WEEKLY [facility] Dextrose (D50w Syringe 50 Ml*) 12.5 gm IV PUSH .FOR FS < 60 - SS PRN PRN Reason: FS < 60 Dextrose (D50w Syringe 50 Ml*) 12.5 gm IV PUSH .FOR FS < 60 - SS PRN PRN Reason: FS < 60 Docusate Sodium (Colace Cap*) 100 mg PO BID PRN PRN Reason: CONSTIPATION Famotidine (Pepcid Tab*) 20 mg PO EVERY OTHER DAY [facility] Last Admin: 02/17/19 08:07 Dose: 20 mg Finasteride (Proscar Tab*) 5 mg PO QPM [facility] Last Admin: 02/16/19 19:28 Dose: 5 mg Furosemide (Lasix Tab*) 40 mg PO BID [facility] Last Admin: 02/17/19 08:08 Dose: 40 mg Hydralazine HCl (Apresoline Iv*) 5 mg IV SLOW PU Q6H PRN PRN Reason: BLOOD PRESSURE Last Admin: 02/17/19 06:41 Dose: 5 mg Sodium Chloride (Ns 0.9% 1000 Ml) 1,000 mls @ 100 mls/hr IV PER RATE [facility] Last Admin: 02/16/19 19:19 Dose: 100 mls/hr Nitroglycerin/Dextrose (Nitroglycerin Drip*) 25,000 mcg in 250 mls @ 3 mls/hr IV .(Initial Rate) [facility]; Protocol Insulin Human Lispro (Humalog*) 0 units SUBCUT AC [facility]; Protocol Last Admin: 02/16/19 18:32 Dose: Not Given Insulin Human Lispro (Humalog*) 0 units SUBCUT ACHS [facility]; Protocol Last Admin: 02/17/19 07:47 Dose: Not Given Isosorbide Mononitrate (Imdur Er Tab*) 240 mg PO DAILY [facility] Last Admin: 02/17/19 08:08 Dose: 240 mg Magnesium Oxide (Magox 400 Tab*) 400 mg PO QAM [facility] Last Admin: 02/17/19 08:07 Dose: 400 mg Metoprolol Tartrate (Lopressor Tab*) 12.5 mg PO Q12HR [facility] Minoxidil (Loniten Tab*) 2.5 mg PO BID [facility] Last Admin: 02/17/19 08:09 Dose: 2.5 mg Ondansetron HCl (Zofran Inj*) 4 mg IV Q4H PRN PRN Reason: NAUSEA/VOMITING Last Admin: 02/16/19 20:56 Dose: 4 mg Oxycodone/Acetaminophen (Percocet 5/325 Tab*) 1 tab PO Q6H PRN PRN Reason: PAIN Last Admin: 02/17/19 08:17 Dose: 1 tab Senna (Senokot Tab*) 1 tab PO BID PRN PRN Reason: CONSTIPATION Sertraline HCl (Zoloft*) 50 mg PO DAILY [facility] Last Admin: 02/17/19 08:08 Dose: 50 mg Tamsulosin HCl (Flomax Cap*) 0.4 mg PO QPM [facility] Last Admin: 02/16/19 19:28 Dose: 0.4 mg Terazosin HCl (Hytrin Cap*) 5 mg PO BEDTIME [facility] Last Admin: 02/16/19 19:28 Dose: 5 mg Ticagrelor (Brilinta*) 90 mg PO BID [facility] Last Admin: 02/17/19 05:51 Dose: 90 mg Vitamin B Complex/Vitamin E (B Complex-50*) 1 tab PO QAM [facility] Last Admin: 02/17/19 08:07 Dose: 1 tab Objective Vital Signs: Temp Pulse Resp BP Pulse Ox 98.6 F 65 16 160/81 93 02/16/19 23:00 02/17/19 08:01 02/17/19 08:18 02/17/19 08:01 02/17/19 08:01 Oxygen Devices in Use Now: None Appearance: well nourished, A+O x3, cooperative with exam , NAD Ears/Nose/Mouth/Throat: NL Teeth, Lips, Gums, Mucous Membranes Moist Neck: NL Appearance and Movements; NL JVP, Trachea Midline, No Thyroid Enlargement, Masses Respiratory: Symmetrical Chest Expansion and Respiratory Effort, Clear to Auscultation Cardiovascular: No Edema, - - Normal S1, S2 RRR, + holosystolic mitral murmur noted under left axilla. no gallop or rub. Abdominal: NL Sounds; No Tenderness; No Distention, No Hepatosplenomegaly Extremities: No Edema Skin: - - Right groin access site is intact, non tender to palpation, no evidence of hematoma with strong distal pulses noted Neurological: Alert and Oriented x 3 Lines/Tubes/Other Access: Clean, Dry and Intact Peripheral IV Laboratory Results: 02/17/19 05:43 02/17/19 05:43 INR (Anticoag Therapy) 0.89 (0.77-1.02) 02/13/19 01:23 APTT 28.3 seconds (26.0-36.3) 02/13/19 01:23 Total Bilirubin 0.80 mg/dL (0.2-1.0) 02/17/19 05:43 AST 17 U/L (13-39) 02/17/19 05:43 ALT 7 U/L (7-52) 02/17/19 05:43 Alkaline Phosphatase 75 U/L (34-104) 02/17/19 05:43 CK-MB (CK-2) 4.2 ng/mL (0.6-6.3) 02/16/19 23:10 B-Natriuretic Peptide 521 pg/mL (<=100) H 02/13/19 01:23 Total Protein 5.7 g/dL (6.4-8.9) L 02/17/19 05:43 Albumin 3.4 g/dL (3.2-5.2) 02/17/19 05:43 Globulin 2.3 g/dL (2-4) 02/17/19 05:43 Albumin/Globulin Ratio 1.5 (1-3) 02/17/19 05:43 Triglycerides 116 mg/dL 02/17/19 05:43 Cholesterol 126 mg/dL 02/17/19 05:43 LDL Cholesterol 67 mg/dL 02/17/19 05:43 HDL Cholesterol 35.9 mg/dL 02/17/19 05:43 02/13/19 02/13/19 02/13/19 01:23 04:15 08:27 Troponin I 0.04 H* 0.05 H* 0.06 H* 02/13/19 02/13/19 02/16/19 09:57 17:18 17:27 Troponin I 0.05 H* 0.04 H* 0.04 H* 02/16/19 23:10 Troponin I 0.25 H* Laboratory Results - last 24 hr 02/16/19 02/16/19 02/16/19 10:04 15:53 17:27 WBC RBC Hgb Hct MCV MCH MCHC RDW Plt Count MPV Neut % (Auto) Lymph % (Auto) [place] % (Auto) Eos % (Auto) Baso % (Auto) Absolute Neuts (auto) Absolute Lymphs (auto) Absolute Monos (auto) Absolute Eos (auto) Absolute Basos (auto) Absolute Nucleated RBC Nucleated RBC % POC Activ Clotting Time 209 Sodium Potassium Chloride Carbon Dioxide Anion Gap BUN Creatinine Est GFR ( Amer) Est GFR (Non-Af Amer) BUN/Creatinine Ratio Glucose POC Glucose (mg/dL) Calcium Phosphorus Magnesium Total Bilirubin AST ALT Alkaline Phosphatase Total Creatine Kinase 31 CK-MB (CK-2) 1.5 Troponin I 0.04 H* Total Protein Albumin Globulin Albumin/Globulin Ratio Triglycerides Cholesterol LDL Cholesterol HDL Cholesterol Hepatitis B Antibody Not immune A Hep Bs Antigen Nonreactive Hep Bs Antibody, Quant < 3.10 Hepatitis C Antibody Nonreactive Hepatitis C Ab Index < 0.0 02/16/19 02/16/19 02/16/19 17:58 18:31 19:44 WBC RBC Hgb Hct MCV MCH MCHC RDW Plt Count MPV Neut % (Auto) Lymph % (Auto) [place] % (Auto) Eos % (Auto) Baso % (Auto) Absolute Neuts (auto) Absolute Lymphs (auto) Absolute Monos (auto) Absolute Eos (auto) Absolute Basos (auto) Absolute Nucleated RBC Nucleated RBC % POC Activ Clotting Time Cancelled 176 Sodium Potassium Chloride Carbon Dioxide Anion Gap BUN Creatinine Est GFR ( Amer) Est GFR (Non-Af Amer) BUN/Creatinine Ratio Glucose POC Glucose (mg/dL) 122 H Calcium Phosphorus Magnesium Total Bilirubin AST ALT Alkaline Phosphatase Total Creatine Kinase CK-MB (CK-2) Troponin I Total Protein Albumin Globulin Albumin/Globulin Ratio Triglycerides Cholesterol LDL Cholesterol HDL Cholesterol Hepatitis B Antibody Hep Bs Antigen Hep Bs Antibody, Quant Hepatitis C Antibody Hepatitis C Ab Index 02/16/19 02/16/19 02/16/19 20:13 20:27 23:10 WBC RBC Hgb Hct MCV MCH MCHC RDW Plt Count MPV Neut % (Auto) Lymph % (Auto) [place] % (Auto) Eos % (Auto) Baso % (Auto) Absolute Neuts (auto) Absolute Lymphs (auto) Absolute Monos (auto) Absolute Eos (auto) Absolute Basos (auto) Absolute Nucleated RBC Nucleated RBC % POC Activ Clotting Time 164 Sodium Potassium Chloride Carbon Dioxide Anion Gap BUN Creatinine Est GFR ( Amer) Est GFR (Non-Af Amer) BUN/Creatinine Ratio Glucose POC Glucose (mg/dL) 135 H Calcium Phosphorus Magnesium Total Bilirubin AST ALT Alkaline Phosphatase Total Creatine Kinase CK-MB (CK-2) 4.2 Troponin I 0.25 H* Total Protein Albumin Globulin Albumin/Globulin Ratio Triglycerides Cholesterol LDL Cholesterol HDL Cholesterol Hepatitis B Antibody Hep Bs Antigen Hep Bs Antibody, Quant Hepatitis C Antibody Hepatitis C Ab Index 02/17/19 02/17/19 05:43 05:43 WBC 5.3 RBC 3.52 L Hgb 9.6 L Hct 29 L MCV 81 MCH 27 MCHC 34 RDW 14 Plt Count 146 L MPV 9.0 Neut % (Auto) 71.4 Lymph % (Auto) 15.5 [place] % (Auto) 8.9 Eos % (Auto) 3.7 Baso % (Auto) 0.5 Absolute Neuts (auto) 3.8 Absolute Lymphs (auto) 0.8 L Absolute Monos (auto) 0.5 Absolute Eos (auto) 0.2 Absolute Basos (auto) 0 Absolute Nucleated RBC 0 Nucleated RBC % 0.1 POC Activ Clotting Time Sodium 136 Potassium 4.1 Chloride 103 Carbon Dioxide 24 Anion Gap 9 BUN 53 H Creatinine 4.24 H Est GFR ( Amer) 17.1 Est GFR (Non-Af Amer) 14.1 BUN/Creatinine Ratio 12.5 Glucose 118 H POC Glucose (mg/dL) Calcium 8.2 L Phosphorus 5.3 H Magnesium 2.1 Total Bilirubin 0.80 AST 17 ALT 7 Alkaline Phosphatase 75 Total Creatine Kinase CK-MB (CK-2) Troponin I Total Protein 5.7 L Albumin 3.4 Globulin 2.3 Albumin/Globulin Ratio 1.5 Triglycerides 116 Cholesterol 126 LDL Cholesterol 67 HDL Cholesterol 35.9 Hepatitis B Antibody Hep Bs Antigen Hep Bs Antibody, Quant Hepatitis C Antibody Hepatitis C Ab Index Diagnostic Imaging: [facility] report has yet to be transcribed please refer to chart EKG Data: 02/17/2019; NSR rate 74 with known lateral TW abnormalities. Telemetry was reviewed. Sinus rhythm rates 55-70. No VT. Assessment/Plan #1 CCS class 3 angina with minimal troponin elevation. S/p C 02/16/2019 which resulted in MARGARET x2 to left free radial graft to PDA. He denies chest pain, does report dyspnea which appears to be consistent with Brilinta. He was given caffeine and we will re address. He historically tolerated Plavix. Will restart Lopressor at 12.5mg Po BID and monitor closely given known h/o sinus arrhythmias with < 3 second pauses last admission. Continue statin, ASA 81/day and Imdur therapy. Will update Troponin and re evaluate. ECG illustrates known lateral TW abnormalities. Will D/C NTG gtt. Right groin access site is intact no evidence of hematoma noted on exam. #2 ESRD on HD; Dr. Byers following and managing. Will speak to him about starting ACEI given uncontrolled HTN. #3 Uncontrolled HTN; SBP 160's. Will restart Lopressor 12.5mg Po BID and monitor closely. Continue imdur 240mg /day, Clonidine 0.3mg transdermal weekly, Norvasc 10mg PO BID. He is on Loniten, however given he is now on HD we would perfer ACEI if okay with nephrology. #4 h/o Mild to moderate MR; Compensated on exam. Goal is to start ACEI. #5 Disposition pending course. Patient full code. I spoke with RN and he is aware that patient may get out of bed to chair with assistance. From cardiac standpoint okay to advance diet. I called Dr. Byers and I am waiting from him to contact me back about discontinuing Loniten and starting Lisinopril therapy. <Aj Hannon - Last Filed: 02/17/19 11:45> Medications Active Medications: Acetaminophen (Tylenol Tab*) 650 mg PO Q4H PRN PRN Reason: FEVER/PAIN Last Admin: 02/14/19 09:19 Dose: 650 mg Acetylcysteine (Mucomyst Oral Yarelis*) 600 mg PO BID [facility] Stop: 02/22/19 09:01 Al Hydrox/Mg Hydrox/Simethicone (Maalox Plus*) 30 ml PO Q6H PRN PRN Reason: INDIGESTION Albuterol (Ventolin Hfa Inhaler*) 1 puff INH Q4H PRN PRN Reason: WHEEZING Amlodipine Besylate (Norvasc Tab*) 10 mg PO BID [facility] Last Admin: 02/17/19 08:08 Dose: 10 mg Aspirin (Aspirin 81 Mg Chew Tab*) 81 mg PO DAILY [facility] Last Admin: 02/17/19 08:07 Dose: 81 mg Atorvastatin Calcium (Lipitor*) 40 mg PO DAILY [facility] Last Admin: 02/17/19 08:07 Dose: 40 mg Buspirone HCl (Buspar Tab*) 10 mg PO BID [facility] Last Admin: 02/17/19 08:07 Dose: 10 mg Clonidine HCl (Puokjrdt-Kji-5 0.3 Mg Patch*) 0.3 mg TRANSDERM WEEKLY [facility] Dextrose (D50w Syringe 50 Ml*) 12.5 gm IV PUSH .FOR FS < 60 - SS PRN PRN Reason: FS < 60 Dextrose (D50w Syringe 50 Ml*) 12.5 gm IV PUSH .FOR FS < 60 - SS PRN PRN Reason: FS < 60 Docusate Sodium (Colace Cap*) 100 mg PO BID PRN PRN Reason: CONSTIPATION Famotidine (Pepcid Tab*) 20 mg PO EVERY OTHER DAY [facility] Last Admin: 02/17/19 08:07 Dose: 20 mg Finasteride (Proscar Tab*) 5 mg PO QPM [facility] Last Admin: 02/16/19 19:28 Dose: 5 mg Furosemide (Lasix Tab*) 40 mg PO BID [facility] Last Admin: 02/17/19 08:08 Dose: 40 mg Hydralazine HCl (Apresoline Iv*) 5 mg IV SLOW PU Q6H PRN PRN Reason: BLOOD PRESSURE Last Admin: 02/17/19 06:41 Dose: 5 mg Sodium Chloride (Ns 0.9% 1000 Ml) 1,000 mls @ 100 mls/hr IV PER RATE [facility] Last Admin: 02/16/19 19:19 Dose: 100 mls/hr Insulin Human Lispro (Humalog*) 0 units SUBCUT AC [facility]; Protocol Last Admin: 02/17/19 09:20 Dose: 3 unit Insulin Human Lispro (Humalog*) 0 units SUBCUT ACHS [facility]; Protocol Last Admin: 02/17/19 07:47 Dose: Not Given Isosorbide Mononitrate (Imdur Er Tab*) 240 mg PO DAILY [facility] Last Admin: 02/17/19 08:08 Dose: 240 mg Magnesium Oxide (Magox 400 Tab*) 400 mg PO QAM [facility] Last Admin: 02/17/19 08:07 Dose: 400 mg Metoprolol Tartrate (Lopressor Tab*) 12.5 mg PO Q12HR [facility] Last Admin: 02/17/19 09:14 Dose: 12.5 mg Minoxidil (Loniten Tab*) 2.5 mg PO BID [facility] Last Admin: 02/17/19 08:09 Dose: 2.5 mg Ondansetron HCl (Zofran Inj*) 4 mg IV Q4H PRN PRN Reason: NAUSEA/VOMITING Last Admin: 02/16/19 20:56 Dose: 4 mg Oxycodone/Acetaminophen (Percocet 5/325 Tab*) 1 tab PO Q6H PRN PRN Reason: PAIN Last Admin: 02/17/19 08:17 Dose: 1 tab Senna (Senokot Tab*) 1 tab PO BID PRN PRN Reason: CONSTIPATION Sertraline HCl (Zoloft*) 50 mg PO DAILY [facility] Last Admin: 02/17/19 08:08 Dose: 50 mg Tamsulosin HCl (Flomax Cap*) 0.4 mg PO QPM [facility] Last Admin: 02/16/19 19:28 Dose: 0.4 mg Terazosin HCl (Hytrin Cap*) 5 mg PO BEDTIME [facility] Last Admin: 02/16/19 19:28 Dose: 5 mg Ticagrelor (Brilinta*) 90 mg PO BID [facility] Last Admin: 02/17/19 05:51 Dose: 90 mg Vitamin B Complex/Vitamin E (B Complex-50*) 1 tab PO QAM [facility] Last Admin: 02/17/19 08:07 Dose: 1 tab Objective Vital Signs: Temp Pulse Resp BP Pulse Ox 97.5 F 50 18 149/73 97 02/17/19 10:36 02/17/19 10:36 02/17/19 10:36 02/17/19 10:36 02/17/19 10:36 Laboratory Results: 02/17/19 05:43 02/17/19 05:43 INR (Anticoag Therapy) 0.89 (0.77-1.02) 02/13/19 01:23 APTT 28.3 seconds (26.0-36.3) 02/13/19 01:23 Total Bilirubin 0.80 mg/dL (0.2-1.0) 02/17/19 05:43 AST 17 U/L (13-39) 02/17/19 05:43 ALT 7 U/L (7-52) 02/17/19 05:43 Alkaline Phosphatase 75 U/L (34-104) 02/17/19 05:43 CK-MB (CK-2) 4.2 ng/mL (0.6-6.3) 02/16/19 23:10 B-Natriuretic Peptide 521 pg/mL (<=100) H 02/13/19 01:23 Total Protein 5.7 g/dL (6.4-8.9) L 02/17/19 05:43 Albumin 3.4 g/dL (3.2-5.2) 02/17/19 05:43 Globulin 2.3 g/dL (2-4) 02/17/19 05:43 Albumin/Globulin Ratio 1.5 (1-3) 02/17/19 05:43 Triglycerides 116 mg/dL 02/17/19 05:43 Cholesterol 126 mg/dL 02/17/19 05:43 LDL Cholesterol 67 mg/dL 02/17/19 05:43 HDL Cholesterol 35.9 mg/dL 02/17/19 05:43 02/13/19 02/13/19 02/13/19 01:23 04:15 08:27 Troponin I 0.04 H* 0.05 H* 0.06 H* 02/13/19 02/13/19 02/16/19 09:57 17:18 17:27 Troponin I 0.05 H* 0.04 H* 0.04 H* 02/16/19 02/17/19 23:10 09:14 Troponin I 0.25 H* 0.78 H* Assessment/Plan I have seen and examined the patient and discussed with WONG Epperson the above and agree. For now we will watch BP and consider increasing meds as needed.
--- NOTE | 2019-02-17 09:08 | ECHO ---
Patient: SCOTT FELIZ Rec#: [id number] : 1955 Date: 02/17/2019 Age: 64y Height: 183 cm / 72.0 in Weight: 105 kg / 231.4 lbs Sex: M BSA: 2.27 Room#: ICU-2 Admit Date#: 02/13/2019 Type: Inpatient Referring: Aj Hannon MD Reading: Micheal Salvador MD Anchorer: Annia Rodríguez RDCS CC: Benjy Caban MD Transthoracic Echocardiogram Indication: Shortness of breath, s/p PCI BP: 166/86 HR: 75 Rhythm: NSR with PACs Findings History: CAD, s/p CABG, s/p PCI, s/p PFO closure, HOWARD, DM, HLD. Technical Comments: The study quality is good. Completed at 0815. Left Ventricle: The left ventricular chamber size is normal. Mild concentric left ventricular hypertrophy is observed. There is normal left ventricular systolic function. The estimated ejection fraction is 55-60%. Post surgical hypokinesis of the interventricular septum is observed consistent with coronary artery bypass. Abnormal left ventricular diastolic function is observed. Abnormal left ventricular diastolic filling is observed, consistent with impaired relaxation. Left Atrium: The left atrium is severely dilated. Right Ventricle: Moderator Band present. The right ventricle is mildly dilated. The right ventricular global systolic function is mildly reduced. Right Atrium: The right atrium is moderately dilated. Septal occlusion device noted Aortic Valve: The aortic valve is trileaflet. The aortic valve leaflets are mildly thickened. There is a trace of aortic regurgitation. There is no evidence of aortic stenosis. Mitral Valve: The mitral valve leaflets are mildly thickened. There is mild to moderate mitral regurgitation. There is no evidence of mitral stenosis. Tricuspid Valve: The tricuspid valve leaflets are normal. There is mild tricuspid regurgitation. The right ventricular systolic pressure is estimated at 35 mmHg. No pulmonary hypertension is noted. There is no tricuspid stenosis. Pulmonic Valve: The pulmonic valve appears normal. There is trace to mild pulmonic regurgitation. There is no pulmonic stenosis. Pericardium: There is no significant pericardial effusion. A pericardial fat pad is visualized. Aorta: There is mild dilatation of the ascending aorta. There is no dilatation of the aortic arch. There is mild dilatation of the aortic root. Pulmonary Artery: The main pulmonary artery appears normal. Venous: The inferior vena cava is dilated. There is a greater than 50% respiratory change in the inferior vena cava dimension. Summary: There are no significant changes when compared to the previous study done on 01/20/19 Conclusions There is normal left ventricular systolic function. The estimated ejection fraction is 55-60%. Post surgical hypokinesis of the interventricular septum is observed consistent with coronary artery bypass. Mild concentric left ventricular hypertrophy is observed. The left atrium is severely dilated. The right atrium is moderately dilated. Septal occlusion device noted There is a trace of aortic regurgitation. There is mild to moderate mitral regurgitation. There is mild tricuspid regurgitation. No pulmonary hypertension is noted. There is no significant pericardial effusion. Measurements Name Value Normal Range RVIDd (AP) 2D 3.9 cm (0.9 - 2.6) RVDdMajor (2D) 4.9 cm (2.2 - 4.4) RAd ISD 4CH 6.5 cm (3.4 - 4.9) RA (A4C)W 5.1 cm (2.9 - 4.6) IVSd (2D) 1.1 cm (0.6 - 1) LVPWd (2D) 1.1 cm (0.6 - 1) LVIDd (2D) 5.2 cm (3.6 - 5.4) LVIDs (2D) 4.1 cm - LV FS (2D) 21 % (25 - 45) Aortic Annulus 2.3 cm (1.4 - 2.6) Ao root diameter (2D) 3.7 cm (2.1 - 3.5) Ascending Ao 4 cm (2.1 - 3.4) Aortic arch 3.1 cm (1.8 - 3.4) LA dimension (AP) 2D 5 cm (2.3 - 3.8) LAd ISD 4CH 6.6 cm (2.9 - 5.3) LA ISD 4CH W 4.7 cm (2.5 - 4.5) Name Value Normal Range LA ESV BP (A/L) index 52 ml/m2 - Name Value Normal Range MV E-wave Vmax 0.7 m/sec - MV deceleration time 246 msec - MV A-wave Vmax 1 m/sec - MV E:A ratio 0.7 ratio - LV septal e' Vmax 0.04 m/sec - LV lateral e' Vmax 0.1 m/sec - LV E:e' septal ratio 17.5 ratio - LV E:e' lateral ratio 7 ratio - Name Value Normal Range AV Vmax 1.4 m/sec - AV VTI 27 cm - AV peak gradient 8 mmHg - AV mean gradient 5 mmHg - LVOT Vmax 1.1 m/sec - LVOT VTI 21 cm - LVOT peak gradient 5 mmHg - LVOT mean gradient 2 mmHg - LEOBARDO Vmax 0.7 m/sec - Name Value Normal Range TR Vmax 2.6 m/sec - TR peak gradient 27 mmHg - RAP 8 mmHg - RVSP 35 mmHg - IVC diameter 2.3 cm - Name Value Normal Range PV Vmax 1 m/sec - PV peak gradient 4 mmHg -
[2019-02-17] MEDS: Metoprolol Tartrate TAB* 25 MG PO SCH ×2 (09:14→20:55)
[2019-02-17 09:43] LABS: Troponin I 0.78 ng/mL (<0.04)
--- NOTE | 2019-02-17 11:09 | PN ---
Subjective Date of Service: 02/17/19 Interval History: Uneventful night in ICU s/p C. Transferred back to . He continues to appear depressed but denies it. He has no pain at the groin, no chest pain. Says appetite is good but hasn't eaten yet. Doesn't notice any difference in his energy since first session of HD yesterday. Objective Active Medications: Acetaminophen (Tylenol Tab*) 650 mg PO Q4H PRN PRN Reason: FEVER/PAIN Last Admin: 02/14/19 09:19 Dose: 650 mg Acetylcysteine (Mucomyst Oral Yarelis*) 600 mg PO BID [facility] Stop: 02/22/19 09:01 Al Hydrox/Mg Hydrox/Simethicone (Maalox Plus*) 30 ml PO Q6H PRN PRN Reason: INDIGESTION Albuterol (Ventolin Hfa Inhaler*) 1 puff INH Q4H PRN PRN Reason: WHEEZING Amlodipine Besylate (Norvasc Tab*) 10 mg PO BID [facility] Last Admin: 02/17/19 08:08 Dose: 10 mg Aspirin (Aspirin 81 Mg Chew Tab*) 81 mg PO DAILY [facility] Last Admin: 02/17/19 08:07 Dose: 81 mg Atorvastatin Calcium (Lipitor*) 40 mg PO DAILY [facility] Last Admin: 02/17/19 08:07 Dose: 40 mg Buspirone HCl (Buspar Tab*) 10 mg PO BID [facility] Last Admin: 02/17/19 08:07 Dose: 10 mg Clonidine HCl (Bnplosxr-Dpd-1 0.3 Mg Patch*) 0.3 mg TRANSDERM WEEKLY [facility] Dextrose (D50w Syringe 50 Ml*) 12.5 gm IV PUSH .FOR FS < 60 - SS PRN PRN Reason: FS < 60 Dextrose (D50w Syringe 50 Ml*) 12.5 gm IV PUSH .FOR FS < 60 - SS PRN PRN Reason: FS < 60 Docusate Sodium (Colace Cap*) 100 mg PO BID PRN PRN Reason: CONSTIPATION Famotidine (Pepcid Tab*) 20 mg PO EVERY OTHER DAY [facility] Last Admin: 02/17/19 08:07 Dose: 20 mg Finasteride (Proscar Tab*) 5 mg PO QPM [facility] Last Admin: 02/16/19 19:28 Dose: 5 mg Furosemide (Lasix Tab*) 40 mg PO BID [facility] Last Admin: 02/17/19 08:08 Dose: 40 mg Hydralazine HCl (Apresoline Iv*) 5 mg IV SLOW PU Q6H PRN PRN Reason: BLOOD PRESSURE Last Admin: 02/17/19 06:41 Dose: 5 mg Sodium Chloride (Ns 0.9% 1000 Ml) 1,000 mls @ 100 mls/hr IV PER RATE [facility] Last Admin: 02/16/19 19:19 Dose: 100 mls/hr Insulin Human Lispro (Humalog*) 0 units SUBCUT AC [facility]; Protocol Last Admin: 02/17/19 09:20 Dose: 3 unit Insulin Human Lispro (Humalog*) 0 units SUBCUT ACHS [facility]; Protocol Last Admin: 02/17/19 07:47 Dose: Not Given Isosorbide Mononitrate (Imdur Er Tab*) 240 mg PO DAILY [facility] Last Admin: 02/17/19 08:08 Dose: 240 mg Magnesium Oxide (Magox 400 Tab*) 400 mg PO QAM [facility] Last Admin: 02/17/19 08:07 Dose: 400 mg Metoprolol Tartrate (Lopressor Tab*) 12.5 mg PO Q12HR [facility] Last Admin: 02/17/19 09:14 Dose: 12.5 mg Minoxidil (Loniten Tab*) 2.5 mg PO BID [facility] Last Admin: 02/17/19 08:09 Dose: 2.5 mg Ondansetron HCl (Zofran Inj*) 4 mg IV Q4H PRN PRN Reason: NAUSEA/VOMITING Last Admin: 02/16/19 20:56 Dose: 4 mg Oxycodone/Acetaminophen (Percocet 5/325 Tab*) 1 tab PO Q6H PRN PRN Reason: PAIN Last Admin: 02/17/19 08:17 Dose: 1 tab Senna (Senokot Tab*) 1 tab PO BID PRN PRN Reason: CONSTIPATION Sertraline HCl (Zoloft*) 50 mg PO DAILY [facility] Last Admin: 02/17/19 08:08 Dose: 50 mg Tamsulosin HCl (Flomax Cap*) 0.4 mg PO QPM [facility] Last Admin: 02/16/19 19:28 Dose: 0.4 mg Terazosin HCl (Hytrin Cap*) 5 mg PO BEDTIME [facility] Last Admin: 02/16/19 19:28 Dose: 5 mg Ticagrelor (Brilinta*) 90 mg PO BID [facility] Last Admin: 02/17/19 05:51 Dose: 90 mg Vitamin B Complex/Vitamin E (B Complex-50*) 1 tab PO QAM [facility] Last Admin: 02/17/19 08:07 Dose: 1 tab Vital Signs - 8 hr 02/17/19 02/17/19 02/17/19 03:15 03:30 03:45 Temperature Pulse Rate 63 59 57 Respiratory 13 14 8 Rate Blood Pressure 142/80 138/70 138/68 (mmHg) O2 Sat by Pulse 96 95 94 Oximetry 02/17/19 02/17/19 02/17/19 04:00 04:15 04:30 Temperature Pulse Rate 55 63 71 Respiratory 12 18 8 Rate Blood Pressure 145/75 135/71 138/79 (mmHg) O2 Sat by Pulse 95 91 93 Oximetry 02/17/19 02/17/19 02/17/19 04:45 05:00 05:15 Temperature Pulse Rate 67 57 58 Respiratory 12 17 18 Rate Blood Pressure 125/74 139/71 147/70 (mmHg) O2 Sat by Pulse 90 92 92 Oximetry 02/17/19 02/17/19 02/17/19 06:00 06:01 07:00 Temperature Pulse Rate 61 63 64 Respiratory 14 16 9 Rate Blood Pressure 166/86 157/91 (mmHg) O2 Sat by Pulse 94 95 95 Oximetry 02/17/19 02/17/19 02/17/19 07:01 08:01 08:17 Temperature Pulse Rate 66 65 Respiratory 10 11 14 Rate Blood Pressure 160/81 (mmHg) O2 Sat by Pulse 96 93 Oximetry 02/17/19 02/17/19 02/17/19 08:18 09:00 09:01 Temperature Pulse Rate 62 59 Respiratory 16 17 19 Rate Blood Pressure 170/82 (mmHg) O2 Sat by Pulse 96 95 Oximetry 02/17/19 02/17/19 02/17/19 09:10 09:11 09:50 Temperature 98.1 F Pulse Rate 76 Respiratory 12 17 Rate Blood Pressure 128/62 (mmHg) O2 Sat by Pulse 96 Oximetry 02/17/19 02/17/19 10:00 10:01 Temperature Pulse Rate 53 54 Respiratory 15 12 Rate Blood Pressure 136/71 (mmHg) O2 Sat by Pulse 96 94 Oximetry Oxygen Devices in Use Now: None Appearance: alert, walking around room, no distress but depressed Eyes: No Scleral Icterus Ears/Nose/Mouth/Throat: NL Teeth, Lips, Gums Neck: NL Appearance and Movements; NL JVP, - - right chest wall permcath, site clean Respiratory: Symmetrical Chest Expansion and Respiratory Effort, Clear to Auscultation Cardiovascular: NL Sounds; No Murmurs; No JVD, No Edema Abdominal: NL Sounds; No Tenderness; No Distention Lymphatic: No Cervical Adenopathy Extremities: - - right groin site clean, no hematoma Skin: No Rash or Ulcers Neurological: Alert and Oriented x 3 Result Diagrams: 02/17/19 05:43 02/17/19 05:43 Assess/Plan/Problems-Billing Assessment: 63 yo M h/o CAD/CABG with recent NSTEMI this month, CKD stage 5, dCHF, DM2, HOWARD pw chest pain - Patient Problems (1) CKD (chronic kidney disease) stage 5, GFR less than 15 ml/min Current Visit: Yes Status: Acute Code(s): N18.5 - CHRONIC KIDNEY DISEASE, STAGE 5 SNOMED Code(s): 296128508 Comment: now ESRD 1st session of HD completed yesterday uneventfully volume and lytes okay (2) Unstable angina Current Visit: Yes Status: Acute Code(s): I20.0 - UNSTABLE ANGINA SNOMED Code(s): 0201807 Comment: [facility] yesterday--2 stents to PDA graft ASA, plavix, imdur, statin, norvasc metoprolol re-introduced this morning by cardiology tele monitoring (3) Diabetes Current Visit: Yes Status: Acute Code(s): E11.9 - TYPE 2 DIABETES MELLITUS WITHOUT COMPLICATIONS SNOMED Code(s): 31493725 Comment: Lispro SS. (4) Hypertension Current Visit: Yes Status: Acute Code(s): I10 - ESSENTIAL (PRIMARY) HYPERTENSION SNOMED Code(s): 86274939 Comment: hydralazine PRN norvasc, imdur, clonidine, lasix (5) Sinus pause Current Visit: Yes Status: Acute Code(s): I45.5 - OTHER SPECIFIED HEART BLOCK SNOMED Code(s): 84453091 Comment: now bradycardia monitor on tele with initiaion of BB
[2019-02-17] MEDS: Tamsulosin CAP* 0.4 MG PO SCH (18:15)
[2019-02-17] MEDS: Finasteride TAB* 5 MG PO SCH (18:15)
--- NOTE | 2019-02-17 18:53 | CATH ---
CC: Dr. Benjy Caban; Dr. Lg Beltre, [facility]; Dr. Aly Byers, Nephrology CARDIAC CATHETERIZATION REPORT AND INTERVENTION REPORT: DATE OF PROCEDURE: 02/16/19 INDICATION FOR PROCEDURE: The patient presents with severe angina pectoris, Miller Heart Class IV with history of bypass surgery and prior stents placed in the free pedicle radial artery graft to the right coronary artery with an abnormal nuclear stress test raising question of ischemia to the inferior low interventricular septal area. PROCEDURES: Coronary arteriography, MARTINEZ graft arteriography, intervention into the free pedicle radial artery graft to the right coronary artery with placement of a 2.75 x 38 mm Synergy drug-eluting stent in the distal portion of the free pedicle radial artery graft to the right coronary artery and placement of a 2.75 x 24 mm long Synergy drug- eluting stent in the proximal portion of the free pedicle radial artery graft to the right coronary artery. CONSENT: The patient was interviewed and examined on the floor of the hospital , where the risks and benefits were explained. He understood them and wished to proceed. PRE-CARDIAC CATHETERIZATION LABORATORY RESULTS: Hemoglobin and hematocrit of 9.7 and 29 with a platelet count of 167,000. BUN and creatinine of 86 and 5.57. Sodium 138, potassium 4.4, chloride 107, bicarb 21. EQUIPMENT UTILIZED: 1. Right femoral artery sheath with initially an 11 cm 5-Pakistani Jennifer sheath. 2. Diagnostic left coronary catheter - a 5-Pakistani FL4 curved left coronary catheter. 3. Free pedicle radial artery arteriography catheter - a 5-Pakistani multipurpose 1 catheter. 4. MARTINEZ graft catheter - a 5-Pakistani IM diagnostic catheter. 5. Right femoral artery sheath for intervention - a 6.5-Pakistani Merit Prelude sheath. 6. Guiding catheter utilized was a 6-Pakistani multipurpose guide catheter. The interventional wire was initially a 300 length 2.25 to 3.5 mm FilterWire EZ as well as a 2.5 x 3.5 mm regular length Filter EZ wire (the wire tip became significantly bent in, as such this catheter cannot be utilized). 7. The distal stent in free pedicle radial artery graft - a 2.75 x 38 mm long Synergy drug-eluting stent. 8. The proximal stent in the free pedicle radial artery graft to the PDA - was a 2.75 x 24 mm long Synergy drug-eluting stent. 9. A guidewire utilized at the end of the case after stents placed for post- stent deployment balloon inflation to proximal stent was a BMW 190 cm length wire. 10. The post-deployment balloon inflation catheter - is a 2.75 x 20 mm long NC Emerge balloon. MEDICATIONS GIVEN: The patient had received aspirin and was on daily Plavix prior to coming to the catheterization laboratory. In the catheterization laboratory, the patient received 180 mg of Brilinta. Heparin boluses were given with a total of 10,500 units of heparin with an ACT that was still subtherapeutic at 205 and as such Angiomax bolus and a renal-adjusted Angiomax drip for hemodialysis patient was utilized. A nitroglycerin drip was also started for hypertension. DESCRIPTION OF PROCEDURE: The patient was brought to the cardiovascular laboratory, where a formal time-out was performed. He was prepped and draped in a sterile fashion. The right groin area was anesthetized with 1% lidocaine, the right femoral artery was cannulated and a 5-Pakistani sheath introducer was placed. Left coronary arteriography was performed utilizing the diagnostic catheter followed by the free pedicle radial arteriography to the posterior descending artery. The MARTINEZ graft was then visualized with MARTINEZ catheter. Following this, decision was made to intervene into the free pedicle radial artery graft to the right coronary artery. The assisting 5-Pakistani was changed for a 6-Pakistani sheath. Guiding views were obtained utilizing the 6-Pakistani multipurpose catheter. Of note, the patient received multiple boluses of heparin therapy with multiple ACTs performed. Of note, despite 10,000 units of heparin, his ACT was not in a therapeutic range to proceed for an intervention, especially in a graft. As such, Angiomax bolus and an Angiomax rate-adjusted drip was started for hemodialysis patient. Following this, the FilterWire was advanced down the bypass graft. Primary stenting was performed to both the distal and proximal areas. Following this, the FilterWire was removed. Of note , high pressure inflations were then made utilizing a BMW wire only advanced to the proximal area of the graft and only into the mid portion of the graft, none to the distal portion, and balloon angioplasty with a noncompliant balloon was carried out. At the end of the case, the result was assessed. Of note, the decision was made to have the sheath manually pulled in the intensive care unit after an appropriate amount of time to allow all of the anticoagulation effect to be reversed and as such, sheath was sutured in place and placed on a pressure bag for hemodynamic monitoring until sheath removal. The portal contrast used was 145 cc of Omnipaque dye. The radiation exposure included 19 minutes of fluoro time. The air kerma radiation was 2181 mGy. The DAP radiation was 19,511 microgray/m2. RESULTS: CORONARY ARTERIOGRAPHY: A. Left coronary artery: 1. Left main - the left main had minimal narrowing with calcification seen in its distal portion. 2. Left anterior descending artery - the left anterior descending artery was totally occluded at its origin. Of note, retrograde filling to a thin diagonal branch was seen. 3. Circumflex artery - a trifurcation marginal branch was noted diffusely diseased in its proximal segment and small in caliber. The continuation of circumflex revealed a proximal to ostial narrowing of 50% and a proximal to mid narrowing of 55% to 60%. Past this point, the circumflex artery bifurcated into 2 low-lying posterior left ventricular branches. Of note , collateral blood flow was seen to the distal portion of the right coronary artery from the circumflex just prior to the 55% to 60% lesion. B. Right coronary artery - not injected as it was already known to be totally occluded from prior studies. FREE PEDICLE RADIAL ARTERY GRAFT TO THE POSTERIOR DESCENDING ARTERY: There is a critical 85% to 90% stenosis in the proximal portion of the vein graft appearing just after the prior stent placement. Past this point, there is in- stent restenosis in the mid to distal vein graft with tapering of the vessels and a significant 75 to 80% obstruction seen at the distal end of the stent. The insertion point into the PDA showed no significant obstruction. Of note, the PDA does not fill well back into the [place] right coronary artery. The PDA was a bifurcating vessel. MARTINEZ GRAFT ARTERIOGRAPHY TO THE LEFT ANTERIOR DESCENDING ARTERY: Widely patent with good anastomosis. The left anterior descending artery was a small-caliber vessel, in general barely 1.7 to 2 mm in diameter. There was retrograde filling up the LAD to a more proximal diagonal branch and back up to multiple septal perforators. Just prior to the uppermost first septal building tech, there was a narrowing of 80%. INTERVENTION INTO FREE PEDICLE RADIAL ARTERY GRAFT TO RIGHT CORONARY ARTERY POSTERIOR DESCENDING ARTERY: A. Proximal vein graft lesion - successful reduction of a 85% to 90% proximal lesion with primary stenting utilizing a 2.75 x 24 mm long Synergy drug -eluting stent postdilated to 2.85 mm with 0% stenosis JAE-3 flow, no dissection seen. B. Distal lesion - successful reduction of diffusely diseased area treated with primary stenting to high pressures with a 2.75 x 38 mm long Synergy drug- eluting stent obtaining 2.8 mm with JAE-3 flow, 10% narrowing noted, no dissection seen. OVERALL ASSESSMENT: Significant coronary artery disease as described above with totally occluded right coronary artery with distal portion being filled by collateral from the circumflex as well as with the free pedicle radial artery graft to the PDA. New findings are the totally occluded LAD proximally with retrograde filling of the small diagonal branch and the progressive disease in the free pedicle radial artery graft to the RPDA. Successful intervention into this vessel as this seemed to be the area that was documented with ischemia on the prior nuclear study. The patient will be switched to Brilinta from clopidogrel and be maintained on aggressive blood pressure management, diabetes management, and hyperlipidemic management. Dr. Lg Beltre will be managing his primary cardiac issues and will be seeing him in followup in the near future. [id number]/[facility] #: [id number] [facility]
[2019-02-17] MEDS: Terazosin CAP* 5 MG PO SCH (21:44)
[2019-02-17] MEDS: Acetylcysteine ORAL SOL* 200 MG/ML VIAL PO SCH (21:47)
[2019-02-18] MEDS: Insulin LISPRO* 1 UNITS UNIT SUBCUT SCH ×6 (07:07→18:20)
[2019-02-18] MEDS ORDERED: Lisinopril TAB* 5 MG PO SCH (09:00)
[2019-02-18] MEDS: Furosemide TAB* 40 MG PO SCH ×2 (09:24→20:21)
[2019-02-18] MEDS: Ticagrelor* 90 MG TAB PO SCH ×2 (09:24→20:21)
[2019-02-18] MEDS: Metoprolol Tartrate TAB* 25 MG PO SCH ×2 (09:24→20:21)
[2019-02-18] MEDS: busPIRone TAB* 10 MG PO SCH ×2 (09:24→20:21)
[2019-02-18] MEDS: Magnesium Oxide TAB* 400 MG PO SCH (09:25)
[2019-02-18] MEDS: Atorvastatin* 40 MG TAB PO SCH (09:25)
[2019-02-18] MEDS: amLODIPine TAB* 5 MG PO SCH ×2 (09:25→20:21)
[2019-02-18] MEDS: Aspirin 81 mg CHEW TAB* 81 MG TAB.CHEW PO SCH (09:26)
[2019-02-18] MEDS: MinoXIDil TAB* 2.5 MG TAB PO SCH ×2 (09:26→20:22)
[2019-02-18] MEDS: Isosorbide Mononitrate ER TAB* 60 MG PO SCH (09:26)
[2019-02-18] MEDS: Sertraline* 50 MG TAB PO SCH (09:26)
[2019-02-18 09:34] LABS: Calcium 8.5 mg/dL (8.6-10.3); Potassium 4.6 mmol/L (3.5-5.0)
[2019-02-18 09:39] LABS: BUN/Creatinine Ratio 12.2 (8-20); EGFR African American 12.9 (>60); EGFR Non-African American 10.7 (>60)
[2019-02-18] MEDS: Acetylcysteine ORAL SOL* 200 MG/ML VIAL PO SCH (10:14)
[2019-02-18] MEDS: Vitamin B Complex TAB PO SCH (10:16)
[2019-02-18] MEDS ORDERED: Heparin DIALYSIS ONLY(*) 1,000 UNITS/ML VIAL DIALYSIS ONE (18:00)
[2019-02-18] MEDS: Tamsulosin CAP* 0.4 MG PO SCH (18:21)
[2019-02-18] MEDS: Finasteride TAB* 5 MG PO SCH (18:21)
[2019-02-18 20:05] VITALS: BP 150/66
[2019-02-18 20:05] LABS: TB Nil Result 0.04 IU/mL; TB1 Ag minus Nil Result -0.01 IU/mL; TB2 Ag minus Nil Result 0 IU/mL
[2019-02-18] MEDS: Terazosin CAP* 5 MG PO SCH (20:22)
--- NOTE | 2019-02-18 22:55 | DS ---
CC: Dr. Pereira; Dr. Lg Beltre; Dr. Caban* DISCHARGE SUMMARY: DATE OF ADMISSION: 02/13/19 DATE OF DISCHARGE: 02/18/19 PRINCIPAL DISCHARGE DIAGNOSES: 1. Acute coronary syndrome. 2. End-stage renal disease. 3. Hypertension. SECONDARY DISCHARGE DIAGNOSES: 1. Type 2 diabetes. 2. Sinus bradycardia. MEDICATIONS AT DISCHARGE: Include: 1. Finasteride 5 mg daily. 2. Flomax 0.4 mg daily. 3. Nitroglycerin 0.4 mg sublingual q.5 minutes p.r.n. chest pain. 4. BuSpar 10 mg b.i.d. 5. Norvasc 10 mg b.i.d. 6. Imdur 240 mg daily. 7. Vitamin B complex 1 tab daily. 8. Magnesium oxide 400 mg daily. 9. Centrum silver 1 tab daily. 10. Vitamin D3 of 2000 units daily. 11. Rosuvastatin 20 mg daily. 12. Ventolin 1 puff q.4 p.r.n. wheezing. 13. Terazosin 5 mg q.h.s. 14. Clonidine 0.3 mg patch weekly. 15. Sertraline 50 mg daily. 16. Alogliptin 12.5 mg daily. 17. Pepcid 20 mg every other day. 18. Minoxidil 2.5 mg b.i.d. 19. Metoprolol succinate 12.5 mg daily. 20. Lasix 40 mg b.i.d. 21. Aspirin 81 mg daily. 22. Lisinopril 5 mg daily. 23. Brilinta 90 mg b.i.d. PHYSICAL EXAMINATION AT THE TIME OF DISCHARGE: Vital Signs: Temperature 98.4, heart rate 48, respiratory rate 14, pulse ox 96% on room air, blood pressure 132 /70. General: Alert, well-appearing man, in no distress. He is depressed. HEENT: Pupils equal, round, and reactive to light. Oral mucosa is moist. Neck : No JVP. No cervical adenopathy. Chest: He has a PermCath on his right chest wall. He is bradycardic. His lungs are clear bilaterally. Abdomen is soft, nontender, nondistended. The right groin cath site is clean and dry with no hematoma. Extremities: No edema. Pulses are 1+ bilaterally. Neurologic: Strength is 5/5 and gait is normal. HOSPITAL COURSE BY PROBLEM: 1. Acute coronary syndrome. He presented to the hospital with unstable angina. This was the third presentation of chest pain and elevated troponins; however, in prior episodes, a left heart cath had been deferred due to the risk of requiring hemodialysis after dye. However, since the chest pain has recurred , both Interventional Cardiology and Nephrology agreed to pursue a left heart catheterization with the plan to start hemodialysis concurrently, so on 02/16/19 , he underwent his first session of hemodialysis and after that underwent a left heart catheterization with Dr. Hannon, during which 2 drug-eluting stents were placed radial artery graft to the RPDA. His course was uncomplicated and his groin site is clean. He was switched from Plavix to Brilinta, which he will continue along with aspirin. He was also continued on atorvastatin and metoprolol was added back. 2. End-stage renal disease. Mr. Watson has a long history of chronic kidney disease and has been following with Dr. Byers for some time with the consideration for dialysis down the road; however, given his recurrent chest pain, the decision to proceed with dye was made and hemodialysis was started on this admission. He has had 2 sessions of hemodialysis during this admission and has tolerated them quite well. He has a PermCath in place currently and more permanent access will be discussed as an outpatient with Nephrology. Lisinopril was added on this admission. 3. Hypertension. His blood pressure was better controlled since he started hemodialysis. He was continued on his home doses of antihypertensive with the addition of lisinopril. 4. Disposition. Mr. Watson is being discharged to home on 02/18/19 with his . He is to report to dialysis early Saturday morning and he and his know of this. He was instructed on the strict nature of his current medications , especially Brilinta and aspirin, and he is to follow up with Dr. Beltre as well as his primary care provider. CONDITION AT THE TIME OF DISCHARGE: Stable. TIME SPENT: Forty five minutes were spent on this discharge. [id number]/[facility] #: [id number] MTDPrakash
--- NOTE | 2019-02-18 23:55 | PN ---
DIALYSIS NOTE: DATE OF DIALYSIS: 02/18/19 The patient was seen and examined at bedside during dialysis. The patient is tolerating the procedure well. Dialysis orders discussed with HD nurse. This is his second dialysis session. We will attempt UF today of 1.5 liters as tolerated. The patient has a hemodialysis chair at the outpatient [facility] for Saturday, Saturday and Saturday. The patient when discharged can follow up as an outpatient on Saturday morning. This has been discussed with the patient. Please contact the renal service if there are any questions. [id number]/[facility] #: [id number] MTDD
== END 2019-02-18 20:40 | disposition home or self-care (01) | DRG 246 ==
LOC: ED 23:47 → MEDTELE 02-13 04:00 → ICU 02-16 16:56 → MEDTELE 02-17 09:33
PROVIDERS: ADMIT Pediatrics; ATTEND Internal Medicine
PROC: 0JH63XZ Insertion of Tunneled Vascular Access Device into Chest Subcutaneous Tissue and Fascia, Percutaneous Approach (ICD-10-PCS; principal; 2019-02-13)
PROC: 02HV33Z Insertion of Infusion Device into Superior Vena Cava, Percutaneous Approach (ICD-10-PCS; 2019-02-13)
PROC: 027035Z Dilation of Coronary Artery, One Artery with Two Drug-eluting Intraluminal Devices, Percutaneous Approach (ICD-10-PCS; 2019-02-16)
PROC: B2111ZZ Fluoroscopy of Multiple Coronary Arteries using Low Osmolar Contrast (ICD-10-PCS; 2019-02-16)
PROC: 5A1D70Z Performance of Urinary Filtration, Intermittent, Less than 6 Hours Per Day (ICD-10-PCS; 2019-02-16)
PROC: B2181ZZ Fluoroscopy of Left Internal Mammary Bypass Graft using Low Osmolar Contrast (ICD-10-PCS; 2019-02-16)
PROC: B2121ZZ Fluoroscopy of Single Coronary Artery Bypass Graft using Low Osmolar Contrast (ICD-10-PCS; 2019-02-16)
DX: I25.110 Atherosclerotic heart disease of native coronary artery with unstable angina pectoris (principal); N18.6 End stage renal disease; I13.2 Hypertensive heart and chronic kidney disease with heart failure and with stage 5 chronic kidney disease, or end stage renal disease; I50.32 Chronic diastolic (congestive) heart failure; T82.855A Stenosis of coronary artery stent, initial encounter; N40.0 Benign prostatic hyperplasia without lower urinary tract symptoms; I45.5 Other specified heart block; E11.22 Type 2 diabetes mellitus with diabetic chronic kidney disease; R00.1 Bradycardia, unspecified; J44.9 Chronic obstructive pulmonary disease, unspecified; F41.9 Anxiety disorder, unspecified; F32.9 Major depressive disorder, single episode, unspecified; I27.20 Pulmonary hypertension, unspecified; D63.1 Anemia in chronic kidney disease; I08.0 Rheumatic disorders of both mitral and aortic valves; E78.00 Pure hypercholesterolemia, unspecified; E11.51 Type 2 diabetes mellitus with diabetic peripheral angiopathy without gangrene; K21.9 Gastro-esophageal reflux disease without esophagitis; I44.0 Atrioventricular block, first degree; G47.33 Obstructive sleep apnea (adult) (pediatric); I25.82 Chronic total occlusion of coronary artery; M19.042 Primary osteoarthritis, left hand; M19.041 Primary osteoarthritis, right hand; M19.012 Primary osteoarthritis, left shoulder; M19.011 Primary osteoarthritis, right shoulder; E78.5 Hyperlipidemia, unspecified; I69.311 Memory deficit following cerebral infarction; Z95.5 Presence of coronary angioplasty implant and graft; I25.2 Old myocardial infarction; Z88.1 Allergy status to other antibiotic agents; Z88.2 Allergy status to sulfonamides; Z86.74 Personal history of sudden cardiac arrest; Z95.828 Presence of other vascular implants and grafts; Z95.810 Presence of automatic (implantable) cardiac defibrillator; Z86.718 Personal history of other venous thrombosis and embolism; Z85.118 Personal history of other malignant neoplasm of bronchus and lung; Z87.01 Personal history of pneumonia (recurrent); Z86.711 Personal history of pulmonary embolism; Z87.19 Personal history of other diseases of the digestive system; Z85.828 Personal history of other malignant neoplasm of skin; Z72.89 Other problems related to lifestyle; Z95.1 Presence of aortocoronary bypass graft; Z82.49 Family history of ischemic heart disease and other diseases of the circulatory system; Z83.3 Family history of diabetes mellitus; Z79.82 Long term (current) use of aspirin; Z79.84 Long term (current) use of oral hypoglycemic drugs; Z79.02 Long term (current) use of antithrombotics/antiplatelets; Y92.9 Unspecified place or not applicable; Y71.3 Surgical instruments, materials and cardiovascular devices (including sutures) associated with adverse incidents
CPT/HCPCS: 36415; 36558; 71045; 76937; 77001; 80048; 80053; 80061; 82550; 82553; 82947; 83735; 83880; 84100; 84484; 85025; 85347; 85610; 85730; 86480; 86706; 86803; 87340; 90935; 93005; 93306; 93455; 93970; 94660; 99156; 99157; 99284; A9270-GY; C1725; C1769; C1876; C1884; C1887; C9604-RC; G0257; J0153; J0360; J0583; J0690; J1642; J1644; J1940; J2250; J2405; J3010; J3490; J7608

== ENCOUNTER 2019-06-18 01:58 | Inpatient (IN) | payer BC, MEDICARE ==
[2019-06-18] MEDS ORDERED: Morphine 4 MG/ML VIAL (1 ml) 4 MG/ML VIAL IV ONE (02:40)
[2019-06-18] MEDS ORDERED: Ondansetron INJ* 2 MG/ML VIAL IV ONE (02:40)
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
[2019-06-18 03:06] LABS: ABS Eosinophils 0.2 10^3/ul (0-0.6); ABS Lymphocytes 0.9 10^3/ul (1.0-4.8); ABS Monocytes 0.6 10^3/ul (0-0.8); ABS Neutrophils 5.6 10^3/ul (1.5-7.7); Eosinophil % 2.2 %; Hematocrit 27 % (42-52); Hemoglobin 9.7 g/dL (14.0-18.0); Lymphocyte % 12.5 %; Mean Corpuscular HGB Conc 35 g/dL (31-36); Mean Corpuscular Hemoglobin 30 pg (27-31); Mean Corpuscular Volume 85 fL (80-94); Mean Platelet Volume 8.1 fL (7.4-10.4); Platelet Count 159 10^3/uL (150-450); Red Blood Count 3.22 10^6 /uL (4.18-5.48); Red Cell Distribution Width 15 % (10-15); White Blood Count 7.3 10^3/uL (3.5-10.8)
[2019-06-18 03:21] LABS: Activated Partial Thrombo Time 32.6 seconds (26.0-38.0); INR 0.91 (0.82-1.09)
[2019-06-18 03:22] LABS: ALT 12 U/L (7-52); AST 16 U/L (13-39); Albumin/Globulin Ratio 1.7 (1-3); Alkaline Phosphatase 67 U/L (34-104); Anion Gap 11 mmol/L (2-11); BUN/Creatinine Ratio 10.7 (8-20); Blood Urea Nitrogen 46 mg/dL (6-24); CO2 Carbon Dioxide 26 mmol/L (22-32); Calcium 8.5 mg/dL (8.6-10.3); Chloride 100 mmol/L (101-111); EGFR African American 16.9 (>60); Globulin 2.4 g/dL (2-4); Glucose 228 mg/dL (70-100); Potassium 3.5 mmol/L (3.5-5.0); Sodium 137 mmol/L (135-145); Total Protein 6.4 g/dL (6.4-8.9)
[2019-06-18 03:29] LABS: Troponin I 0.09 ng/mL (<0.04)
[2019-06-18] MEDS ORDERED: Iodixanol* (CONTRAST) 320 MG/ML 100 ML SDV IV ONE (04:25)
[2019-06-18] MEDS ORDERED: Acetaminophen TAB* 325 MG PO PRN (06:28)
[2019-06-18] MEDS ORDERED: Aspirin TAB* 325 MG PO SCH (09:00)
[2019-06-18] MEDS ORDERED: Metoprolol Succinate XL TAB* 25 MG PO SCH ×2 (09:30→21:00)
--- NOTE | 2019-06-18 09:52 | HP ---
CC: Dr. Caban; Dr. Byers; Dr. Perez; Dr. Beltre from Cardiology * HISTORY AND PHYSICAL: DATE OF ADMISSION: 06/18/19 PRIMARY CARE PROVIDER: Dr. Caban. CHIEF COMPLAINT: Right-sided arm pain and chest pain. HISTORY OF PRESENT ILLNESS: Siva Watson is a 64-year-old male with a history of ESRD and CAD presents with chest pain and right shoulder pain.Patient stated that he had his R arm dialysis fistula placed in February 2019 and ever since than he had been having right shoulder pain that is worse every day. Today in addition to right shoulder pain he had substernal chest pain PAST MEDICAL HISTORY: 1. 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 2. History of coronary artery disease, status post two stents placed during cardiac catheterization and admission for [id number] in January of 2019. 3. Status post right-sided dialysis fistula placed by Dr. Perez in February of 2019. 4. History of anemia of chronic disease. 5. Obstructive sleep apnea. 6. History of stroke with memory impairment. 7. History of PFO, status post closure. 8. Diabetes. MEDICATIONS: The patient does not remember what medications he takes. Unfortunately, his is now en route to home, the pharmacy is closed and the patient's primary care provider's office is closed. That will be reconciled later on today. ALLERGIES: BACTRIM. FAMILY HISTORY: Mother with history of hypertension and diabetes. SOCIAL HISTORY: The patient lives at home with his , who his healthcare proxy. He is on disability. He has no history of tobacco use. He uses alcohol rarely. 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 REVIEW OF SYSTEMS: Please see history of present illness. The patient stated that his right shoulder pain developed postoperatively in February 2019 after his right- sided fistula placement. He complains of shoulder pain when he moves the shoulder, especially when he tries to rise it above his head or abduct. The pain is getting gradually worse for the past 3 months, and yesterday the pain radiated to the middle of his chest from the right shoulder and he was concerned because of his history of heart disease. All the remaining 12 systems were reviewed with the patient and were otherwise negative. PHYSICAL EXAMINATION GENERAL: The patient is a pleasant 64-year-old male who is in no acute distress. The patient is alert and oriented x2. He is rather forgetful. VITAL SIGNS: Blood pressure of 156/60, heart rate of 81 and regular, respiratory rate 20, oxygen saturation 98% on room air, temperature 98.8. HEENT: Head: Atraumatic, normocephalic. Eyes: Pupils equal and reactive to light and accommodation. Oropharynx is clear. Mucosa moist. NECK: Supple. No JVD. No bruits bilaterally. RESPIRATORY: Clear to auscultation bilaterally. CARDIOVASCULAR: Regular rate and rhythm. No murmur. ABDOMEN: Soft, nontender. Bowel sounds present in all 4 quadrants. EXTREMITIES: There is no edema. +2 pulses bilaterally. No clubbing or cyanosis. MUSCULOSKELETAL: Evaluation of the right shoulder and right arm, the patient has problems with mobility of the right shoulder with abduction and straight arm raise. His shoulder is tender to palpation, especially anteriorly. He also has a dialysis fistula present in the right forearm that had been accessed for dialysis. There is positive thrill. There is no evidence of skin abnormality. He has a couple of stitches from his right-sided chest port that was removed recently. There is no evidence of dehiscence in the area on his right upper chest and no skin infection. NEURO EVALUATION: Cranial nerves II through XII are grossly intact. Motor strength is 5/5 bilaterally. DIAGNOSTIC STUDIES/LAB DATA: Laboratory data showed white blood cell count of 7.3, hemoglobin of 9.7, hematocrit of 27, and platelets of 159. Sodium 137, potassium 3.5, chloride 100, carbon dioxide 26, BUN 46, creatinine 4.28. Liver function tests are basically unremarkable. The patient's brain natriuretic peptide was 413. The patient's EKG showed old changes which are minimal ST depressions in inferior leads and ST depressions in V4 and V6. The patient otherwise was in normal sinus rhythm with a heart rate of 71. The patient had a CT angiogram of the chest performed which showed "no acute findings and no filling defects suspicious for pulmonary emboli seen. No CT evidence of aortic dissection or leakage. No aortic aneurysm appreciated." ASSESSMENT AND PLAN: 1. In regards to the patient's right shoulder pain. It appears to may be related to tendonitis that could have started perioperatively around the time when the patient's right-sided dialysis fistula was operated on . Patient stated that the pain had been ongoing ever since, but getting worse. At this point, x-rays of the shoulders were obtained and the patient is going to be seen by Dr. Cano's service from orthopedics for further management. 2. In regards to the patient's right-sided chest pain. His CTA was negative, but his troponin continues to climb. He does have end-stage renal disease which may explain the elevated troponins somewhat. His EKG is so far unchanged from prior. At this point, we will continue observing, but the patient does have 2 cardiac stents placed in January of 2019 and he may require further cardiac evaluation if his troponins continue to climb. 3. In regards to the patient's end-stage renal disease and dialysis need. I spoke with Dr. Byers in regards to need of dialysis in the patient who just had a CT angiogram of the chest obtained today. Dr. Byers reassured that it is okay for the patient to have dialysis at his scheduled time tomorrow. 4. In regards to the patient's chronic medications; once again, I was unable address it due to not being able to have the patient's medication list. That will be addressed later on during the daytime. 5. The patient's code status is full and his surrogate is his . TIME SPENT: Approximately 72 minutes was spent on the admission of this patient , more than half the time was spent [id number] with the patient during the interview and physical exam. [id number]/CPS #: [id number] MTDD
[2019-06-18] MEDS: Ticagrelor* 90 MG TAB PO SCH ×2 (11:04→22:10)
[2019-06-18] MEDS: Aspirin EC TAB* 81 MG TAB.EC PO SCH (11:04)
--- NOTE | 2019-06-18 13:44 | PN ---
Progress Note - Progress Note Date of Service: 06/18/19 Note: Brief f/u note Patient seen and examined. RT shoulder pain is positional. No chest pain at this time. Selected Entries 06/18/19 06/18/19 06/18/19 08:30 09:22 11:15 Pulse Rate 58 59 57 Blood Pressure 178/72 164/68 159/69 (mmHg) Exam: Alert, eating lunch Lungs: clear Heart; RRR Suture present RT subclavian area fistula w/ thrill RT wrist Laboratory Tests 06/18/19 06/18/19 06/18/19 02:59 06:10 12:36 Troponin I 0.09 H* 0.30 H* 0.90 H* A/P: Shoulder pain: under evaluation w/ Dr. Cano, discussed rotator cuff injury non-Q wave VA, recurrent: Dr. Oshea to see patient Will increase metoprolol and add Norvasc or nitrates to lower BP further.
[2019-06-18] MEDS ORDERED: Metoprolol Succinate XL TAB* 25 MG PO ONE (14:00)
--- NOTE | 2019-06-18 14:26 | CONS ---
CONSULTATION REPORT: DATE OF CONSULT: 06/18/19 LOCATION: Seen in room 416. HISTORY OF PRESENT ILLNESS: Siva is a 64-year-old pleasant male who has had some complicated medical history including stents, sternotomy, chronic renal failure, an emergency port and then now a shunt in his right arm. The port was placed in his right clavicular area in late January, and according to the and Siva, somewhere thereabouts, he began to have increasing right shoulder pain. 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 As the pain increased and actually migrated more into the chest area, he was admitted within the last 24 hours for workup of possible pulmonary embolism, cardiac sources for this pain. He had a little bit of morphine sometime during the admission and his pain is much improved and the shoulder currently is not particularly painful to Siva. He does notice some weakness and pinching feeling when he ranges, particularly abduction and elevation. His medical issues and medications are outlined in the chart and well described. PHYSICAL EXAM: On examination, he is sitting up in bed comfortably, eating his lunch. He is conversant but does have some short-term memory loss from a TIA, which he claims did not leave him with any peripheral weakness or loss of function, only mainly short-term memory. The right shoulder itself is non- erythematous, non- puffy. He has free nonpainful passive range of motion of the shoulder including abduction, forward flexion, internal and external rotation. When I have him abduct to 90 degrees, he is able to resist downward pressure from my hand without pain. He is also able to externally rotate against my hand without pain. He has a bit of tenderness subacromial which suggests some impingement. There is no trace of biceps tendinitis. The port access site which is now healed is 5 to 6 cm more medial than the shoulder girdle itself. DIAGNOSTIC STUDIES/LAB DATA: Siva has plain radiographs of the shoulder which are non-remarkable. No significant elevation or depression of the head. No significant end-stage arthritic changes. No erosive changes. He does have some cuts to the shoulder girdle as well on his CTA and these also are unremarkable. IMPRESSION AND PLAN: My suspicion is that he has some rotator cuff tendinopathy and this may have been exacerbated during the procedure for the port, possibly by some passive positioning or manipulation of the shoulder during the procedure, but going forward I would recommend some outpatient physiotherapy for the shoulder, which is usually very helpful for rotator cuff problems. I also suspect that the chest problem is separate issue and is only temporarily related to the shoulder. We are happy to follow this problem if he stays in house or should there be increasing shoulder pain. [id number]/CPS #: [id number] KIKI
[2019-06-18] MEDS: amLODIPine TAB* 5 MG PO SCH (14:35)
[2019-06-18] MEDS ORDERED: Potassium Chlor TAB* 10 MEQ TAB.ER PO ONE (15:04)
--- NOTE | 2019-06-18 15:06 | PN ---
Progress Note - Progress Note Date of Service: 06/18/19 Note: Dr. Perez's office called, sutures ready to be removed RT subclavian area, port had been removed. Removed 2 sutures w/o incident. No bleeding, no dehiscence.
[2019-06-18 15:31] LABS: ABS Eosinophils 0.2 10^3/ul (0-0.6); ABS Lymphocytes 0.7 10^3/ul (1.0-4.8); ABS Monocytes 0.7 10^3/ul (0-0.8); ABS Neutrophils 5.3 10^3/ul (1.5-7.7); Eosinophil % 3.5 %; Hematocrit 29 % (42-52); Lymphocyte % 10.3 %; Mean Corpuscular HGB Conc 35 g/dL (31-36); Mean Corpuscular Hemoglobin 30 pg (27-31); Mean Corpuscular Volume 84 fL (80-94); Mean Platelet Volume 8.2 fL (7.4-10.4); Platelet Count 153 10^3/uL (150-450); Red Blood Count 3.38 10^6 /uL (4.18-5.48); Red Cell Distribution Width 15 % (10-15)
[2019-06-18 15:42] LABS: Anion Gap 10 mmol/L (2-11); BUN/Creatinine Ratio 10.6 (8-20); Blood Urea Nitrogen 52 mg/dL (6-24); CO2 Carbon Dioxide 27 mmol/L (22-32); Calcium 8.6 mg/dL (8.6-10.3); Chloride 101 mmol/L (101-111); EGFR African American 14.5 (>60); EGFR Non-African American 11.9 (>60); Glucose 141 mg/dL (70-100); Magnesium 2.1 mg/dL (1.9-2.7); Potassium 3.9 mmol/L (3.5-5.0); Sodium 138 mmol/L (135-145)
[2019-06-18 15:54] LABS: Troponin I 0.95 ng/mL (<0.04)
[2019-06-18] MEDS: Finasteride TAB* 5 MG PO SCH (17:57)
--- NOTE | 2019-06-18 21:41 | CONS ---
CC: Dr. Caban; Dr. Beltre; Dr. Byers.* INTERVENTIONAL CARDIOLOGY CONSULT NOTE: DATE OF CONSULTATION: 06/18/19 PRIMARY CARE PHYSICIAN: Dr. Caban. BARREL LEVELER: Dr. Beltre. IMPORT SPECIALIST: Dr. Byers. HISTORY OF PRESENT ILLNESS: A 64-year-old male well known to me from prior evaluations earlier this year admitted with right shoulder and chest pain. Interventional cardiology consulted because of abnormal troponin. He has a complex past medical history with bypass grafting in 2002 with MARTINEZ to the LAD, a free left radial artery graft to the RPDA. At the time of surgery, apparently the distal right posterolateral and ramus were too small for grafting. In 2013, he had inferior wall ischemia on imaging, cath by Dr. Hannon demonstrated a patent MARTINEZ to the LAD, 80% ramus stenosis, the left radial artery free graft to the RPDA had 2 stenoses which were stented with a 2.5 x 16 mm drug-eluting stent proximally, 2.5 x 24 drug-eluting stent in the mid portion. The distal RCA at that time filled by left to right collaterals. Nuclear imaging in December of this year showed inferior wall and inferior septal ischemia. On 02/17/19, echo showed EF of 55% to 60% with mild to moderate MR. He had several admissions with non ST elevation infarct versus type 2 infarcts; some in the setting of volume overload as he was developing progressively worsening renal failure, but was not yet being dialyzed. He underwent catheterization on 02/17/[address] Hannon with a finding of restenosis in two areas of the free left radial artery graft to the RPDA, which were stented with 2.75 x 38 drug-eluting stent distally and a 2.75 x 24 drug- eluting stent more proximally. On this cath his LAD was now occluded at the ostium isolating a bifurcated diagonal branch as an additional zone of potential ischemia in addition to the ramus as well as the distal RPL, which fills by left to right collaterals. He subsequently has been on hemodialysis , and has had generally good experience with good quality of life especially on his dialysis days. I cannot elicit any fluid gain or retention recently, he tells me blood pressure at dialysis has been excellent. He has not had any recent illnesses. He, however, has been bothered by progressively worsening right shoulder rotator cuff pain for the past 4 months to the point where he has had great difficulty using his right arm. Last night, for the first time, he had associated precordial chest pain similar to what he had a week or so ago in terms of quality, although that episode was much briefer and apparently resolved with nitroglycerin. He has not had any effort related chest discomfort or dyspnea. Previously, dyspnea was a major component of his ischemic presentations. Last night, he had this chest discomfort with severe arm pain for many hours, it improved partially before he got to the ER and resolved after medical treatment. His chest pain has not recurred. One atypical feature to his chest pain is that it hurt along the right side of his chest all the way down to his waist, which of course is an atypical distribution. He had no radiation of pain to his jaw, teeth, shoulders or back. There was no pleuritic component, his chest wall was tender somewhat , but not exquisitely so, and his chest pain was not worsened by any movement or turning involved in getting from his bed to their car to the ER. PAST MEDICAL HISTORY: 1. Intermittent thrombocytopenia. 2. Endstage renal disease, on hemodialysis. 3. Mild to moderate MR with preserved ejection fraction. 4. Hyperlipidemia. 5. Hypertension. 6. Diastolic heart failure. 7. Moderate pulmonary hypertension. 8. Prior CVA with some memory impairment. 9. Remote PFO closure. 10. Type 2 diabetes. 11. Obstructive sleep apnea. 12. Anemia of chronic disease. 13. Prior GI bleed February 2018 without recurrence. PREHOSPITAL MEDICATIONS: Detailed in the MAR. PHYSICAL EXAM: Currently he has discomfort with certain motions of his right arm, but his chest does not hurt. His blood pressure here has been elevated ranging from 152/79 to 178/72. He is not tachypneic or dyspneic, he is frustrated by his limitation from his left shoulder pain. His lungs are entirely clear to auscultation and percussion. JVP is upper limits of normal at 8 to 10 cm of water. His carotids are palpable without bruits. HEENT: Is unremarkable without xanthelasma, scleral injection, or jaundice. EOMs are grossly normal. Cranial nerves intact. Cardiac Exam: I can't feel the apical impulse or RV. He has an early to mid systolic mitral regurge and a murmur grade 2 over the apex radiating to the left axilla, I don't hear any diastolic murmur. He has no audible rub or gallop. The abdomen is soft, nontender, normal bowel sounds. No bruits. Radial pulses normal, he has no cyanosis, clubbing or edema. Pedal pulses are palpable. DIAGNOSTIC STUDIES/LAB DATA: Hemoglobin 10, hematocrit 29, BUN 52, creatinine 4.9, his troponin 0.09, 0.3, 0.9, 0.95. BNP is elevated at 413. Chest x-ray shows somewhat globular heart on a portable film without overt heart failure. EKG shows inferolateral nonspecific ST-T wave changes, more noticeable since his last EKG of 02/18/19, but similar to other EKGs from earlier in January. His last LDL in our records was 67 on 04/15/18. IMPRESSION: 1. Chest pain with rising troponin. I cannot elicit any clinical event causing a type 2 infarct, although that does not rule that out. It does raise the possibility of ACS with plaque rupture. He does have at least 3 zones of potential ischemia that are not revascularized, namely the high diagonal, the ramus, and the distal right. Only the ramus would be amenable to revascularization and he has not had ramus distribution ischemia on imaging as recent as December of this year. Another possibility is very early restenosis of the stents placed 4 months ago in his free radial artery graft; however, that would be very early and unusual. His previous graft stenosis adjacent to his prior stents developed after 3 years. After discussion of options including proceeding directly to cath, repeating nuclear imaging, which will be especially helpful if the inferior wall area is now normal versus just empirical continued medical management, we have decided to pursue a Lexiscan study tomorrow. 2. Hypertension. He tells me his blood pressures have been excellent in dialysis. He is certainly hypertensive here, which could pose increased afterload, cause supply demand mismatch and cause a troponin leak, although that would not explain his presentation. Thanks for the consult. I will follow with you. [id number]/[facility] #: [id number] IKKI
[2019-06-18] MEDS ORDERED: Morphine INJ* 2 MG/ML 1 ML SYRINGE (TWO MG - NEW SYRINGE VERSION) IV PRN (21:56)
[2019-06-18] MEDS: oxyCODONE/Acetamin 5/325 MG* TAB PO PRN (22:10)
[2019-06-18] MEDS: Metoprolol Succinate XL TAB* 25 MG PO SCH (22:11)
[2019-06-19] MEDS ORDERED: Ondansetron INJ* 2 MG/ML VIAL IV PRN (00:21)
[2019-06-19] MEDS: Morphine INJ* 2 MG/ML 1 ML SYRINGE (TWO MG - NEW SYRINGE VERSION) IV PRN ×3 (00:31→18:10)
[2019-06-19] MEDS: oxyCODONE/Acetamin 5/325 MG* TAB PO PRN (01:51)
[2019-06-19 06:57] LABS: Anion Gap 11 mmol/L (2-11); BUN/Creatinine Ratio 10.9 (8-20); Blood Urea Nitrogen 60 mg/dL (6-24); CO2 Carbon Dioxide 26 mmol/L (22-32); Calcium 8.9 mg/dL (8.6-10.3); Chloride 100 mmol/L (101-111); EGFR African American 12.6 (>60); EGFR Non-African American 10.4 (>60); Glucose 127 mg/dL (70-100); Potassium 4.1 mmol/L (3.5-5.0); Sodium 137 mmol/L (135-145)
[2019-06-19] MEDS: Metoprolol Succinate XL TAB* 25 MG PO SCH (08:11)
[2019-06-19] MEDS: amLODIPine TAB* 5 MG PO SCH ×2 (08:11→21:15)
[2019-06-19 08:20] LABS: Troponin I 0.79 ng/mL (<0.04)
[2019-06-19] MEDS ORDERED: EPOETIN ALFA-EPBX * 3,000 UNIT/ML VIAL IV ONE (10:00)
[2019-06-19] MEDS ORDERED: Heparin DIALYSIS ONLY(*) 1,000 UNITS/ML VIAL DIALYSIS ONE (10:00)
[2019-06-19] MEDS ORDERED: EPOETIN ALFA-EPBX * 2,000 UNIT/ML VIAL IV ONE (10:00)
--- NOTE | 2019-06-19 12:14 | PN ---
Subjective Date of Service: 06/19/19 Interval History: No chest pain currently just finished dialysis Objective Active Medications: Acetaminophen (Tylenol Tab*) 650 mg PO Q4H PRN PRN Reason: FEVER/PAIN Amlodipine Besylate (Norvasc Tab*) 5 mg PO DAILY [facility] Last Admin: 06/19/19 08:11 Dose: 5 mg Aspirin (Aspirin Ec Tab*) 81 mg PO DAILY [facility] Last Admin: 06/18/19 11:04 Dose: 81 mg Finasteride (Proscar Tab*) 5 mg PO QPM [facility] Last Admin: 06/18/19 17:57 Dose: 5 mg Metoprolol Succinate (Toprol Xl Tab*) 12.5 mg PO Q12H [facility] Last Admin: 06/19/19 08:11 Dose: 12.5 mg Morphine Sulfate (Morphine Inj (Syringe))*) 2 mg IV Q1H PRN PRN Reason: PAIN Last Admin: 06/19/19 08:11 Dose: 2 mg Ondansetron HCl (Zofran Inj*) 4 mg IV Q6H PRN PRN Reason: NAUSEA Oxycodone/Acetaminophen (Percocet 5/325 Tab*) 1 tab PO Q4H PRN PRN Reason: PAIN Last Admin: 06/19/19 01:51 Dose: 1 tab Ticagrelor (Brilinta*) 90 mg PO BID [facility] Last Admin: 06/18/19 22:10 Dose: 90 mg Vital Signs - 8 hr 06/19/19 06/19/19 06/19/19 07:22 08:11 09:15 Temperature 98.0 F Pulse Rate 63 Respiratory 22 18 18 Rate Blood Pressure 170/70 (mmHg) O2 Sat by Pulse 98 Oximetry Oxygen Devices in Use Now: None Appearance: sitting on chair, not in distress Respiratory: Clear to Auscultation Cardiovascular: RRR Abdominal: NL Sounds; No Tenderness; No Distention Extremities: No Edema Neurological: Alert and Oriented x 3 Result Diagrams: 06/18/19 15:12 06/19/19 06:12 Assess/Plan/Problems-Billing Assessment: - Patient Problems (1) NSTEMI (non-ST elevated myocardial infarction) Current Visit: Yes Status: Acute Code(s): I21.4 - NON-ST ELEVATION (NSTEMI) MYOCARDIAL INFARCTION SNOMED Code(s): 67222760 Comment: for stress test cardio consulted hx of CAD- on brilinta (2) ESRD (end stage renal disease) Current Visit: Yes Status: Acute Code(s): N18.6 - END STAGE RENAL DISEASE SNOMED Code(s): 42564786 Comment: on HD- MWF (3) Shoulder pain Current Visit: Yes Status: Acute Code(s): M25.519 - PAIN IN UNSPECIFIED SHOULDER SNOMED Code(s): 03475784 Comment: seen by ortho- likely tendon issue, recommend PT
[2019-06-19] MEDS ORDERED: hydrALAZINE IV* 20 MG/ML VIAL IV SLOW PU ONE (12:51)
[2019-06-19] MEDS: Aspirin EC TAB* 81 MG TAB.EC PO SCH (12:51)
[2019-06-19] MEDS: Ticagrelor* 90 MG TAB PO SCH ×2 (12:51→21:15)
[2019-06-19] MEDS ORDERED: hydrALAZINE IV* 20 MG/ML VIAL ONE (12:53)
[2019-06-19 13:10] LABS: Hepatitis B Surface Ab Not Immune (Immune)
[2019-06-19] MEDS ORDERED: Aminophylline IV* 25 MG/ML 10 ML VIAL ONE (13:22)
[2019-06-19] MEDS ORDERED: Regadenoson* 0.4 MG/5 ML SYRINGE ONE (13:22)
[2019-06-19 14:43] LABS: Hepatitis B Surface Antigen Negative (Negative)
[2019-06-19] MEDS ORDERED: cloNIDine 0.2 MG PATCH* 0.2 MG/24 HR 7 DAY PATCH TRANSDERM SCH (16:00)
[2019-06-19] MEDS ORDERED: Morphine INJ* 2 MG/ML 1 ML SYRINGE (TWO MG - NEW SYRINGE VERSION) IV PRN (16:41)
[2019-06-19] MEDS: Finasteride TAB* 5 MG PO SCH (18:03)
[2019-06-19] MEDS ORDERED: Metoprolol Succinate XL TAB* 25 MG PO SCH (18:16)
--- NOTE | 2019-06-19 18:17 | PN ---
Hospitalist Progress Note Date of Service: 06/19/19 Patient's home medications were not restarted. Restarted statin, nitrate, clonidine patch. Additionally reports that patient takes amlodipine 10mg BID, and metoprolol 37.5mg daily- I have updated the medication list.
[2019-06-19] MEDS ORDERED: Terazosin CAP* 5 MG PO SCH (18:29)
[2019-06-19] MEDS: Furosemide TAB* 40 MG PO SCH (21:15)
[2019-06-19] MEDS: Isosorbide Mononitrate ER TAB* 60 MG PO SCH (21:15)
[2019-06-19] MEDS: MinoXIDil TAB* 2.5 MG TAB PO SCH (21:16)
[2019-06-19] MEDS: Terazosin CAP* 5 MG PO SCH (21:16)
[2019-06-19] MEDS: Acetaminophen / Codeine* #3 (300 MG/30 MG) TAB PO PRN (21:37)
[2019-06-20] MEDS: Metoprolol Succinate XL TAB* 25 MG PO SCH (08:43)
[2019-06-20] MEDS: Sertraline* 50 MG TAB PO SCH (08:45)
[2019-06-20] MEDS: Atorvastatin* 40 MG TAB PO SCH (08:45)
[2019-06-20] MEDS: MinoXIDil TAB* 2.5 MG TAB PO SCH ×2 (08:45→21:59)
[2019-06-20] MEDS: Magnesium Oxide TAB* 400 MG PO SCH (08:46)
[2019-06-20] MEDS: Pantoprazole TAB * 40 MG TAB PO SCH (08:46)
[2019-06-20] MEDS: Vitamin B Complex TAB PO SCH (08:46)
[2019-06-20] MEDS: Lisinopril TAB* 5 MG PO SCH (08:46)
[2019-06-20] MEDS: Isosorbide Mononitrate ER TAB* 60 MG PO SCH ×2 (08:46→22:00)
[2019-06-20] MEDS: Aspirin EC TAB* 81 MG TAB.EC PO SCH (08:46)
[2019-06-20] MEDS: amLODIPine TAB* 5 MG PO SCH ×2 (08:46→22:01)
[2019-06-20] MEDS: Ticagrelor* 90 MG TAB PO SCH ×2 (08:46→22:00)
[2019-06-20] MEDS: Furosemide TAB* 40 MG PO SCH ×2 (08:46→22:02)
[2019-06-20] MEDS ORDERED: Terazosin CAP* 5 MG PO SCH (09:00)
[2019-06-20] MEDS: RENA VITE PO SCH (11:30)
--- NOTE | 2019-06-20 11:46 | PN ---
Subjective Date of Service: 06/20/19 Interval History: Patient reports feeling better, had a shower. His right shoulder pain is improved after shower. Objective Active Medications: Acetaminophen (Tylenol Tab*) 650 mg PO Q4H PRN PRN Reason: FEVER/PAIN Acetaminophen/Codeine Phosphate (Tylenol/Codeine 30 Mg Tab*) 1 tab PO Q4H PRN PRN Reason: PAIN - MODERATE Last Admin: 06/19/19 21:37 Dose: 1 tab Amlodipine Besylate (Norvasc Tab*) 10 mg PO BID [facility] Last Admin: 06/20/19 08:46 Dose: 10 mg Aspirin (Aspirin Ec Tab*) 81 mg PO DAILY [facility] Last Admin: 06/20/19 08:46 Dose: 81 mg Atorvastatin Calcium (Lipitor*) 40 mg PO QAM [facility] Last Admin: 06/20/19 08:45 Dose: 40 mg Clonidine HCl (Lqetwejl-Why-3 0.2 Mg Patch*) 0.2 mg TRANSDERM WEEKLY [facility] Finasteride (Proscar Tab*) 5 mg PO QPM [facility] Last Admin: 06/19/19 18:03 Dose: 5 mg Furosemide (Lasix Tab*) 40 mg PO BID [facility] Last Admin: 06/20/19 08:46 Dose: 40 mg Sodium Chloride (Ns 0.9% 1000 Ml) 1,000 mls @ 75 mls/hr IV .per rate [facility] Isosorbide Mononitrate (Imdur Er Tab*) 120 mg PO BID [facility] Last Admin: 06/20/19 08:46 Dose: 120 mg Lisinopril (Prinivil Tab*) 5 mg PO QAM [facility] Last Admin: 06/20/19 08:46 Dose: 5 mg Magnesium Oxide (Magox 400 Tab*) 400 mg PO QAM [facility] Last Admin: 06/20/19 08:46 Dose: 400 mg Metoprolol Succinate (Toprol Xl Tab*) 37.5 mg PO DAILY [facility] Last Admin: 06/20/19 08:43 Dose: 37.5 mg Minoxidil (Loniten Tab*) 2.5 mg PO BID [facility] Last Admin: 06/20/19 08:45 Dose: 2.5 mg Pto:Denisha-Jenny 1 dose PO DAILY [facility] Ondansetron HCl (Zofran Inj*) 4 mg IV Q6H PRN PRN Reason: NAUSEA Pantoprazole Sodium (Protonix Tab*) 40 mg PO DAILY [facility] Last Admin: 06/20/19 08:46 Dose: 40 mg Sertraline HCl (Zoloft*) 50 mg PO QAM [facility] Last Admin: 06/20/19 08:45 Dose: 50 mg Terazosin HCl (Hytrin Cap*) 5 mg PO 2100 [facility] Last Admin: 06/19/19 21:16 Dose: 5 mg Ticagrelor (Brilinta*) 90 mg PO BID [facility] Last Admin: 06/20/19 08:46 Dose: 90 mg Vitamin B Complex/Vitamin E (B Complex-50*) 1 tab PO QAM [facility] Last Admin: 06/20/19 08:46 Dose: 1 tab Vital Signs - 8 hr 06/20/19 06/20/19 07:26 08:00 Temperature 98.0 F Pulse Rate 69 Respiratory 20 20 Rate Blood Pressure 142/64 (mmHg) O2 Sat by Pulse 97 Oximetry Oxygen Devices in Use Now: None Appearance: Sitting on bed, not in distress Eyes: PERRLA Respiratory: Symmetrical Chest Expansion and Respiratory Effort, Clear to Auscultation Cardiovascular: RRR, No Edema Abdominal: NL Sounds; No Tenderness; No Distention, No Hepatosplenomegaly Extremities: No Edema Neurological: Alert and Oriented x 3 Result Diagrams: 06/18/19 15:12 06/19/19 06:12 Assess/Plan/Problems-Billing Assessment: - Patient Problems (1) NSTEMI (non-ST elevated myocardial infarction) Current Visit: Yes Status: Acute Code(s): I21.4 - NON-ST ELEVATION (NSTEMI) MYOCARDIAL INFARCTION SNOMED Code(s): 63175487 Comment: hx of CAD: on brilinta, lipitor, aspirin, BB, Raymundo. Abnormal stress test, now pending CATH on 06/22 (2) ESRD (end stage renal disease) Current Visit: Yes Status: Acute Code(s): N18.6 - END STAGE RENAL DISEASE SNOMED Code(s): 40759594 Comment: on HD- MWF (3) Shoulder pain Current Visit: Yes Status: Acute Code(s): M25.519 - PAIN IN UNSPECIFIED SHOULDER SNOMED Code(s): 59771075 Comment: seen by ortho- likely tendon issue, recommend PT hot shower seemed to help, ordered hot compress and one dose of flexeril (4) DVT prophylaxis Current Visit: No Status: Acute Code(s): QDT8192 - SNOMED Code(s): 935567519 Comment: ambulate. (5) HTN (hypertension) Current Visit: No Status: Acute Code(s): I10 - ESSENTIAL (PRIMARY) HYPERTENSION SNOMED Code(s): 19579352 Comment: - Mionoxidil, metoprolol, nitrate, lisinopril, and clonidine patch
[2019-06-20] MEDS ORDERED: oxyCODONE/Acetamin 5/325 MG* TAB PO ONE (12:37)
[2019-06-20] MEDS: Finasteride TAB* 5 MG PO SCH (17:03)
[2019-06-20] MEDS ORDERED: Cyclobenzaprine TAB* 10 MG PO ONE (21:00)
[2019-06-20] MEDS: Terazosin CAP* 5 MG PO SCH (21:59)
[2019-06-21] MEDS: Metoprolol Succinate XL TAB* 25 MG PO SCH (09:44)
[2019-06-21] MEDS: Isosorbide Mononitrate ER TAB* 60 MG PO SCH ×2 (09:45→22:17)
[2019-06-21] MEDS: Aspirin EC TAB* 81 MG TAB.EC PO SCH (09:45)
[2019-06-21] MEDS: MinoXIDil TAB* 2.5 MG TAB PO SCH ×2 (09:45→22:18)
[2019-06-21] MEDS: Ticagrelor* 90 MG TAB PO SCH ×2 (09:45→22:19)
[2019-06-21] MEDS: Furosemide TAB* 40 MG PO SCH ×2 (09:45→22:19)
[2019-06-21] MEDS: Pantoprazole TAB * 40 MG TAB PO SCH (09:45)
[2019-06-21] MEDS: Atorvastatin* 40 MG TAB PO SCH (09:45)
[2019-06-21] MEDS: amLODIPine TAB* 5 MG PO SCH ×2 (09:46→22:19)
[2019-06-21] MEDS: Magnesium Oxide TAB* 400 MG PO SCH (09:46)
[2019-06-21] MEDS: Lisinopril TAB* 5 MG PO SCH (09:46)
[2019-06-21] MEDS: Sertraline* 50 MG TAB PO SCH (09:47)
--- NOTE | 2019-06-21 10:44 | PN ---
Subjective Date of Service: 06/21/19 Interval History: Reports he slept nicely last night. This morning- states his shoulder is not hurting as it was last few days. No chest pain, no shortness of breath, no palpitations. Objective Active Medications: Acetaminophen (Tylenol Tab*) 650 mg PO Q4H PRN PRN Reason: FEVER/PAIN Acetaminophen/Codeine Phosphate (Tylenol/Codeine 30 Mg Tab*) 1 tab PO Q4H PRN PRN Reason: PAIN - MODERATE Last Admin: 06/19/19 21:37 Dose: 1 tab Amlodipine Besylate (Norvasc Tab*) 10 mg PO BID [facility] Last Admin: 06/21/19 09:46 Dose: 10 mg Aspirin (Aspirin Ec Tab*) 81 mg PO DAILY [facility] Last Admin: 06/21/19 09:45 Dose: 81 mg Atorvastatin Calcium (Lipitor*) 40 mg PO QAM [facility] Last Admin: 06/21/19 09:45 Dose: 40 mg Clonidine HCl (Meotxwvz-Cog-7 0.2 Mg Patch*) 0.2 mg TRANSDERM WEEKLY [facility] Finasteride (Proscar Tab*) 5 mg PO QPM [facility] Last Admin: 06/20/19 17:03 Dose: 5 mg Furosemide (Lasix Tab*) 40 mg PO BID [facility] Last Admin: 06/21/19 09:45 Dose: 40 mg Sodium Chloride (Ns 0.9% 1000 Ml) 1,000 mls @ 75 mls/hr IV .per rate [facility] Isosorbide Mononitrate (Imdur Er Tab*) 120 mg PO BID [facility] Last Admin: 06/21/19 09:45 Dose: 120 mg Lisinopril (Prinivil Tab*) 10 mg PO QAM [facility] Magnesium Oxide (Magox 400 Tab*) 400 mg PO QAM [facility] Last Admin: 06/21/19 09:46 Dose: 400 mg Metoprolol Succinate (Toprol Xl Tab*) 37.5 mg PO DAILY [facility] Last Admin: 06/21/19 09:44 Dose: 37.5 mg Minoxidil (Loniten Tab*) 2.5 mg PO BID [facility] Last Admin: 06/21/19 09:45 Dose: 2.5 mg Pto:Denisha-Jenny 1 dose PO DAILY [facility] Last Admin: 06/20/19 11:30 Dose: 1 dose Ondansetron HCl (Zofran Inj*) 4 mg IV Q6H PRN PRN Reason: NAUSEA Pantoprazole Sodium (Protonix Tab*) 40 mg PO DAILY [facility] Last Admin: 06/21/19 09:45 Dose: 40 mg Sertraline HCl (Zoloft*) 50 mg PO QAM [facility] Last Admin: 06/21/19 09:47 Dose: 50 mg Terazosin HCl (Hytrin Cap*) 5 mg PO 2100 [facility] Last Admin: 06/20/19 21:59 Dose: 5 mg Ticagrelor (Brilinta*) 90 mg PO BID [facility] Last Admin: 06/21/19 09:45 Dose: 90 mg Vitamin B Complex/Vitamin E (B Complex-50*) [facility] Last Admin: 06/20/19 08:46 Dose: 1 tab Vital Signs - 8 hr 06/21/19 03:15 Temperature 97.6 F Pulse Rate 67 Respiratory 16 Rate Blood Pressure 155/79 (mmHg) O2 Sat by Pulse 96 Oximetry Oxygen Devices in Use Now: None Appearance: Sitting on bed, not in distress Eyes: PERRLA Respiratory: Symmetrical Chest Expansion and Respiratory Effort, Clear to Auscultation Cardiovascular: NL Sounds; No Murmurs; No JVD, RRR Extremities: No Edema Neurological: Alert and Oriented x 3 Result Diagrams: 06/18/19 15:12 06/19/19 06:12 Assess/Plan/Problems-Billing Assessment: - Patient Problems (1) NSTEMI (non-ST elevated myocardial infarction) Current Visit: Yes Status: Acute Code(s): I21.4 - NON-ST ELEVATION (NSTEMI) MYOCARDIAL INFARCTION SNOMED Code(s): 39825055 Comment: hx of CAD: on brilinta, lipitor, aspirin, BB, Raymundo. Abnormal stress test, now pending CATH on 06/22 (2) ESRD (end stage renal disease) Current Visit: Yes Status: Acute Code(s): N18.6 - END STAGE RENAL DISEASE SNOMED Code(s): 24249118 Comment: on HD- MWF (3) Shoulder pain Current Visit: Yes Status: Acute Code(s): M25.519 - PAIN IN UNSPECIFIED SHOULDER SNOMED Code(s): 45171006 Comment: seen by ortho- likely tendon issue, recommend PT hot shower seemed to help, ordered hot compress and one dose of flexeril-seemed to help, currently is not in pain. will monitor. (4) DVT prophylaxis Current Visit: No Status: Acute Code(s): WNY9567 - SNOMED Code(s): 789084767 Comment: ambulate. (5) HTN (hypertension) Current Visit: No Status: Acute Code(s): I10 - ESSENTIAL (PRIMARY) HYPERTENSION SNOMED Code(s): 51914854 Comment: - Mionoxidil, metoprolol, nitrate, lisinopril dose increased to 10mg , and clonidine patch
[2019-06-21] MEDS: RENA VITE PO SCH (14:21)
[2019-06-21] MEDS: Vitamin B Complex TAB PO SCH (15:28)
[2019-06-21] MEDS: Finasteride TAB* 5 MG PO SCH (17:40)
[2019-06-21] MEDS ORDERED: Cyclobenzaprine TAB* 10 MG PO ONE (20:18)
[2019-06-21] MEDS: Terazosin CAP* 5 MG PO SCH (22:18)
[2019-06-22 06:30] LABS: ABS Eosinophils 0.3 10^3/ul (0-0.6); ABS Lymphocytes 1.2 10^3/ul (1.0-4.8); ABS Monocytes 0.7 10^3/ul (0-0.8); ABS Neutrophils 4.8 10^3/ul (1.5-7.7); Eosinophil % 3.7 %; Hematocrit 27 % (42-52); Hemoglobin 9.3 g/dL (14.0-18.0); Lymphocyte % 16.8 %; Mean Corpuscular HGB Conc 35 g/dL (31-36); Mean Corpuscular Hemoglobin 29 pg (27-31); Mean Corpuscular Volume 84 fL (80-94); Mean Platelet Volume 8.6 fL (7.4-10.4); Platelet Count 172 10^3/uL (150-450); Red Blood Count 3.15 10^6 /uL (4.18-5.48); Red Cell Distribution Width 15 % (10-15)
[2019-06-22 06:48] LABS: BUN/Creatinine Ratio 12.5 (8-20); Calcium 8.6 mg/dL (8.6-10.3); EGFR African American 10.1 (>60); EGFR Non-African American 8.3 (>60); Potassium 4.2 mmol/L (3.5-5.0)
[2019-06-22] MEDS ORDERED: NS 0.9% 1000 ML** 1,000 ML IV SCH (08:00)
[2019-06-22] MEDS: Magnesium Oxide TAB* 400 MG PO SCH (08:29)
[2019-06-22] MEDS: amLODIPine TAB* 5 MG PO SCH ×2 (08:29→20:08)
[2019-06-22] MEDS: Lisinopril TAB* 5 MG PO SCH (08:29)
[2019-06-22] MEDS: MinoXIDil TAB* 2.5 MG TAB PO SCH ×2 (08:29→22:08)
[2019-06-22] MEDS: Pantoprazole TAB * 40 MG TAB PO SCH (08:29)
[2019-06-22] MEDS: Isosorbide Mononitrate ER TAB* 60 MG PO SCH ×2 (08:29→20:09)
[2019-06-22] MEDS: Metoprolol Succinate XL TAB* 25 MG PO SCH (08:29)
[2019-06-22] MEDS: Atorvastatin* 40 MG TAB PO SCH (08:29)
[2019-06-22] MEDS: Aspirin EC TAB* 81 MG TAB.EC PO SCH (08:30)
[2019-06-22] MEDS: Furosemide TAB* 40 MG PO SCH ×2 (08:30→20:09)
[2019-06-22] MEDS: Ticagrelor* 90 MG TAB PO SCH ×2 (08:30→20:09)
[2019-06-22] MEDS: Sertraline* 50 MG TAB PO SCH (08:30)
[2019-06-22] MEDS: RENA VITE PO SCH (08:30)
[2019-06-22] MEDS ORDERED: Lidocaine 1% INJ* 10 MG/ML 30 ML SDV ONE (09:04)
[2019-06-22] MEDS ORDERED: Heparin 2 UNITS/ML IVPREMIX* 2,000 UNIT/1,000 ML BAG IV ONE (09:04)
[2019-06-22] MEDS ORDERED: Iodixanol 320 (CONTRAST) 100 ML SDV ONE ×2 (09:04→09:45)
[2019-06-22] MEDS ORDERED: fentaNYL* 50 MCG/ML 2 ML VIAL (100 MCG VIAL) ONE (09:13)
[2019-06-22] MEDS ORDERED: Midazolam* 1 MG/ML 5 ML VIAL (5 MG) ONE (09:14)
[2019-06-22] MEDS ORDERED: Bivalirudin(*) 250 MG VIAL ONE (09:42)
[2019-06-22] MEDS ORDERED: nitroGLYCERIN DRIP* 25,000 MCG/250 ML BTL ONE (09:51)
[2019-06-22] MEDS ORDERED: Nitroglycerin TAB 0.4 MG* 0.4 MG TAB SL PRN (10:49)
[2019-06-22] MEDS: Vitamin B Complex TAB PO SCH (11:20)
--- NOTE | 2019-06-22 12:05 | PN ---
Subjective Date of Service: 06/22/19 Interval History: status post CATH today Pending dialysis No acute issues overnight. at bedside in the ICU, currently no chest pain, no palpitations, no shortness of breath. Objective Active Medications: Acetaminophen (Tylenol Tab*) 650 mg PO Q4H PRN PRN Reason: FEVER/PAIN Acetaminophen/Codeine Phosphate (Tylenol/Codeine 30 Mg Tab*) 1 tab PO Q4H PRN PRN Reason: PAIN - MODERATE Last Admin: 06/19/19 21:37 Dose: 1 tab Amlodipine Besylate (Norvasc Tab*) 10 mg PO BID [facility] Last Admin: 06/22/19 08:29 Dose: 10 mg Aspirin (Aspirin Ec Tab*) 81 mg PO DAILY [facility] Last Admin: 06/22/19 08:30 Dose: 81 mg Clonidine HCl (Znidyncq-Pko-4 0.2 Mg Patch*) 0.2 mg TRANSDERM WEEKLY [facility] Finasteride (Proscar Tab*) 5 mg PO QPM [facility] Last Admin: 06/21/19 17:40 Dose: 5 mg Furosemide (Lasix Tab*) 40 mg PO BID [facility] Last Admin: 06/22/19 08:30 Dose: 40 mg Sodium Chloride (Ns 0.9% 1000 Ml) 1,000 mls @ 75 mls/hr IV .per rate [facility] Stop: 06/22/19 12:59 Isosorbide Mononitrate (Imdur Er Tab*) 120 mg PO BID [facility] Last Admin: 06/22/19 08:29 Dose: 120 mg Lisinopril (Prinivil Tab*) 10 mg PO QAM [facility] Last Admin: 06/22/19 08:29 Dose: 10 mg Magnesium Oxide (Magox 400 Tab*) 400 mg PO QAM [facility] Last Admin: 06/22/19 08:29 Dose: 400 mg Metoprolol Succinate (Toprol Xl Tab*) 37.5 mg PO DAILY [facility] Last Admin: 06/22/19 08:29 Dose: 37.5 mg Minoxidil (Loniten Tab*) 2.5 mg PO BID [facility] Last Admin: 06/22/19 08:29 Dose: 2.5 mg Nitroglycerin (Nitroglycerin Tab 0.4 Mg*) 0.4 mg SL Q5M PRN PRN Reason: ANGINA Pto:Denisha-Jenny 1 dose PO DAILY [facility] Last Admin: 06/22/19 08:30 Dose: Not Given Ondansetron HCl (Zofran Inj*) 4 mg IV Q6H PRN PRN Reason: NAUSEA Pantoprazole Sodium (Protonix Tab*) 40 mg PO DAILY [facility] Last Admin: 06/22/19 08:29 Dose: 40 mg Rosuvastatin Calcium (Crestor (Nf)) 40 mg PO 1700 [facility] Sertraline HCl (Zoloft*) 50 mg PO QAM [facility] Last Admin: 06/22/19 08:30 Dose: 50 mg Terazosin HCl (Hytrin Cap*) 5 mg PO 2100 [facility] Last Admin: 06/21/19 22:18 Dose: 5 mg Ticagrelor (Brilinta*) 90 mg PO BID [facility] Last Admin: 06/22/19 08:30 Dose: 90 mg Vitamin B Complex/Vitamin E (B Complex-50*) 1 tab PO QAM [facility] Last Admin: 06/22/19 11:20 Dose: Not Given Vital Signs - 8 hr 06/22/19 06/22/19 07:44 07:50 Temperature 97.9 F Pulse Rate 67 Respiratory 20 20 Rate Blood Pressure 138/65 (mmHg) O2 Sat by Pulse 97 Oximetry Oxygen Devices in Use Now: None Appearance: Lying in bed, not in distress Eyes: PERRLA Ears/Nose/Mouth/Throat: Mucous Membranes Moist Respiratory: Symmetrical Chest Expansion and Respiratory Effort, Clear to Auscultation Cardiovascular: NL Sounds; No Murmurs; No JVD, RRR Abdominal: NL Sounds; No Tenderness; No Distention, No Hepatosplenomegaly Skin: - - cath site: right groin- dressing intact, non tender, no swelling. Neurological: Alert and Oriented x 3 Result Diagrams: 06/22/19 05:47 06/22/19 05:47 Assess/Plan/Problems-Billing Assessment: - Patient Problems (1) NSTEMI (non-ST elevated myocardial infarction) Current Visit: Yes Status: Acute Code(s): I21.4 - NON-ST ELEVATION (NSTEMI) MYOCARDIAL INFARCTION SNOMED Code(s): 95729646 Comment: hx of CAD: on brilinta, aspirin, BB, Raymundo. Abnormal stress test, CATH: in stent stenosis: s/p stent- full CATH report pending- d/w pathology laboratory aide post cath. at home takes crestor 20mg here we gave him lipitor, Dr. Lakhani recommends increasing crestor 40mg ( to bring the bottle here) (2) ESRD (end stage renal disease) Current Visit: Yes Status: Acute Code(s): N18.6 - END STAGE RENAL DISEASE SNOMED Code(s): 91987460 Comment: on HD- MWF (3) Shoulder pain Current Visit: Yes Status: Acute Code(s): M25.519 - PAIN IN UNSPECIFIED SHOULDER SNOMED Code(s): 41804546 Comment: seen by ortho- likely tendon issue, recommend PT hot shower seemed to help, ordered hot compress and one dose of flexeril-seemed to help, currently is not in pain. will monitor. (4) DVT prophylaxis Current Visit: No Status: Acute Code(s): RCS8404 - SNOMED Code(s): 704025575 Comment: ambulate. (5) HTN (hypertension) Current Visit: No Status: Acute Code(s): I10 - ESSENTIAL (PRIMARY) HYPERTENSION SNOMED Code(s): 63530870 Comment: - Mionoxidil, metoprolol, nitrate, lisinopril dose increased to 10mg , and clonidine patch
[2019-06-22] MEDS ORDERED: EPOETIN ALFA-EPBX * 2,000 UNIT/ML VIAL IV ONE (16:30)
[2019-06-22] MEDS ORDERED: EPOETIN ALFA-EPBX * 3,000 UNIT/ML VIAL IV ONE (16:30)
[2019-06-22] MEDS ORDERED: Cyclobenzaprine TAB* 10 MG PO ONE (17:49)
[2019-06-22] MEDS: Finasteride TAB* 5 MG PO SCH (17:59)
[2019-06-22] MEDS: CMCS: Rosuvastatin (NF) 20 MG TAB PO SCH (18:02)
[2019-06-22] MEDS: Terazosin CAP* 5 MG PO SCH (20:09)
--- NOTE | 2019-06-22 21:01 | PN ---
DIALYSIS NOTE: DATE OF DIALYSIS: 06/22/19 SUBJECTIVE: The patient seen and examined during dialysis. The patient tolerating the procedure well. The patient is status post heart cath. Vitals and labs have been reviewed. PHYSICAL EXAMINATION: HEENT: NC/AT. Heart: S1, S2 present, regular at the time of exam. Lungs: Clear to auscultation. Abdomen: Soft. Extremities: No edema. Neuro: Alert, oriented. ASSESSMENT AND PLAN: 1. End-stage renal disease, on hemodialysis, Saturday, Saturday, and Saturday. We will continue his routine hemodialysis treatment. Today, the patient has not gained weight compared to his dry weight and we will dialyze him to his dry weight with minimal volume removal. 2. We will follow with the medical team. [id number]/[facility] #: [id number] KIKI
[2019-06-23 05:45] LABS: Albumin 3.9 g/dL (3.2-5.2); Albumin/Globulin Ratio 1.7 (1-3); BUN/Creatinine Ratio 10.4 (8-20); Calcium 8.9 mg/dL (8.6-10.3); EGFR African American 13.8 (>60); EGFR Non-African American 11.4 (>60); Globulin 2.3 g/dL (2-4); Potassium 4.1 mmol/L (3.5-5.0); Total Bilirubin 0.9 mg/dL (0.2-1.0); Total Protein 6.2 g/dL (6.4-8.9)
[2019-06-23] MEDS: Aspirin EC TAB* 81 MG TAB.EC PO SCH (08:44)
[2019-06-23] MEDS: amLODIPine TAB* 5 MG PO SCH ×2 (08:44→21:11)
[2019-06-23] MEDS: Lisinopril TAB* 5 MG PO SCH (08:45)
[2019-06-23] MEDS: Metoprolol Succinate XL TAB* 25 MG PO SCH (08:45)
[2019-06-23] MEDS: Magnesium Oxide TAB* 400 MG PO SCH (08:45)
[2019-06-23] MEDS: Furosemide TAB* 40 MG PO SCH ×2 (08:45→21:11)
[2019-06-23] MEDS: Isosorbide Mononitrate ER TAB* 60 MG PO SCH ×2 (08:45→21:11)
[2019-06-23] MEDS: RENA VITE PO SCH (08:47)
[2019-06-23] MEDS: MinoXIDil TAB* 2.5 MG TAB PO SCH ×2 (08:47→21:11)
[2019-06-23] MEDS: Sertraline* 50 MG TAB PO SCH (08:48)
[2019-06-23] MEDS: Ticagrelor* 90 MG TAB PO SCH ×2 (08:48→21:11)
[2019-06-23] MEDS: Pantoprazole TAB * 40 MG TAB PO SCH (08:48)
[2019-06-23] MEDS: Vitamin B Complex TAB PO SCH (08:49)
--- NOTE | 2019-06-23 09:06 | CATH ---
CC: Dr. Benjy Caban; Dr. Lg Beltre, [facility] * CARDIAC CATHETERIZATION REPORT: DATE OF PROCEDURE: 06/22/19 INDICATION FOR PROCEDURE: The patient with recurrent chest discomfort, abnormal cardiac enzymes suggesting acute coronary syndrome with abnormal nuclear stress test suggesting reversible ischemia to the inferior wall of the right coronary artery raising the question of possible compromise of free pedicle radial artery graft to the posterior descending artery of the right coronary artery, which was stented in the past. Now for reassessment and possible intervention. The procedure was coronary arteriography, MARTINEZ graft arteriography, free pedicle radial artery graft to posterior descending artery, balloon angioplasty, and placement of a 3.0 x 20 mm long Synergy drug-eluting stent in the proximal portion of the free pedicle radial artery graft to the posterior descending artery. CONSENT: The patient was interviewed and examined on the floor of the hospital where the risks and benefits were explained. He understood them and wished to proceed. PRECARDIAC CATHETERIZATION LABORATORY RESULTS: Hemoglobin and hematocrit of 9.3 and 27 with a BUN and creatinine of 84 and 67 (the patient on hemodialysis) . Sodium 135, potassium 4.2, chloride 100, bicarb 20. APPROACH UTILIZED: In light of the patient having a MARTINEZ graft, the right femoral artery approach was utilized. EQUIPMENT UTILIZED: 1. Right femoral artery sheath was initially a 5 Indian 11-cm Jennifer sheath followed by a 6.5 Indian Merit Prelude sheath for the intervention. 2. Diagnostic catheters were a 5 Indian FL4 curved guide catheter for the left coronary artery, a 5 Indian LUIS catheter for the MARTINEZ graft catheter to the LAD , and a 5 Indian multipurpose 1 catheter for the radial artery graft to the posterior descending artery. The right coronary artery was not injected as it was known to be totally occluded from prior cardiac catheterizations. 3. Balloon angioplasty catheters 3.25 x 8 mm long NC Emerge balloon, a 2.75 x 12 mm long NC Emerge balloon, and a 3.0 x 8 mm long NC Emerge balloon. 4. Protection device utilized was a 300 length FilterWire EZ by [employer]. 5. Diagnostic guidewire was a regular length J-tipped curved guidewire. 6. The closure device utilized was a Mynx closure device 6/7 Indian. MEDICATIONS GIVEN: 1% lidocaine as well as an Angiomax bolus and Angiomax drip. Of note, the patient had already received his 81 mg of aspirin and 90 mg of Brilinta prior to coming to the cardiovascular laboratory. DESCRIPTION OF PROCEDURE: The patient was brought to the cardiovascular laboratory where formal time-out was performed. He was prepped and draped in sterile fashion. The right groin area was anesthetized with 1% lidocaine. The right femoral artery was cannulated and a 5-Indian sheath was placed and diagnostic coronary arteriography as well as MARTINEZ graft arteriography and free pedicle radial artery graft arteriography were performed. Following this, the decision was made to intervene into the free pedicle radial artery graft. The existing 5-Indian sheath was changed for a 6-Indian sheath. The patient received a bolus of Angiomax and an Angiomax drip was started. The guide catheter (a 6-Indian multipurpose guide catheter) was placed and the FilterWire EZ was deployed. Balloon angioplasty was carried out starting with a 2.75 x 12 mm long NC Emerge balloon followed then by a 3.0 x 8 mm long NC Emerge balloon. Following this, the 3.0 x 20 mm long Synergy drug-eluting stent was deployed with post deployment balloon inflations made with both the 3.0 x 8 mm long NC Emerge balloon and a 3.25 x 8 mm long NC Emerge balloon. Following this, the result was assessed and the FilterWire was recaptured and the diagnostic catheter was removed. Hemostasis was obtained with the Mynx closure device. The total contrast used was 135 cc of Visipaque dye. The radiation exposure included 19.7 minutes of fluoro time. The air kerma radiation was 2613 mGy. The DAP radiation was 16,178 microgray/m2. RESULTS: CORONARY ARTERIOGRAPHY: A. Left coronary artery: 1. Left main - widely patent. 2. Left anterior descending artery - totally occluded for a short distance from its ostium. There was a posteriorly directed first diagonal branch, small in caliber, with diffuse disease with an area of 80% in the proximal portion of the diagonal branch and a 75% to 80% ostial narrowing. 3. Circumflex artery - a nondominant vessel supplying a thin first obtuse marginal branch followed by a second thin obtuse marginal branch. The artery then had a third obtuse marginal branch, which bifurcated. There was diffuse disease noted in the proximal portion with a stenosis of 65% seen followed by an area of 65% to 70%. Of note, there was collateralization seen to the distal right coronary artery, posterior left ventricular branches and body of the right coronary artery. B. Right coronary artery - known to be totally occluded from prior cardiac catheterizations. MARTINEZ GRAFT ARTERIOGRAPHY: - the MARTINEZ graft was widely patent with good anastomosis to a very thin left anterior descending artery with retrograde filling to a more proximal posteriorly directed diagonal branch. In general, the ak chin vessels were extremely small in caliber. FREE PEDICLE RADIAL ARTERIOGRAPHY TO POSTERIOR DESCENDING ARTERY: The bypass was noted to have significant in-stent restenosis in the proximal portion with a stenosis as much as 85% to 90% seen in the main body of the prior stented area. Of note, there were 2 stents within this area already placed. More proximally, there was a narrowing of 65% within the stent area. The rest of the bypass showed no significant in-stent restenosis into the area of prior stent placement in the mid- to-distal portion. It attached to the posterior descending artery, which bifurcated. There was a 50% lesion seen within the posterior descending artery in its [id number] portion. INTERVENTION INTO PROXIMAL PORTION OF FREE PEDICLE RADIAL ARTERY GRAFT TO POSTERIOR DESCENDING ARTERY: Successful reduction of critical 90% to 95% stenosis and 65% stenosis using balloon angioplasty and placement of a 3.0 x 20 mm long Synergy drug- eluting stent post dilated to its highest 3.25 mm with JAE-3 flow and 10% residual stenosis. OVERALL ASSESSMENT: Successful intervention to critically stenosed proximal portion of free pedicle radial artery graft to posterior descending artery, which had been stented multiple times in the past. Aggressive risk factor management and dual antiplatelet therapy for a minimum of 1 year's time should be pursued. We will increase his Crestor to 40 mg a day and continue his other medications. Aggressive risk factor management needs to be maintained given the presence of his progressive coronary artery disease. [id number]/[facility] #: [id number] [facility] CENTERPrakash
[2019-06-23 09:43] LABS: ABS Eosinophils 0.1 10^3/ul (0-0.6); ABS Lymphocytes 0.6 10^3/ul (1.0-4.8); ABS Monocytes 0.5 10^3/ul (0-0.8); ABS Neutrophils 5.3 10^3/ul (1.5-7.7); Hematocrit 27 % (42-52); Hemoglobin 9.5 g/dL (14.0-18.0); Lymphocyte % 9.3 %; Mean Corpuscular HGB Conc 35 g/dL (31-36); Mean Corpuscular Hemoglobin 30 pg (27-31); Mean Corpuscular Volume 85 fL (80-94); Mean Platelet Volume 7.7 fL (7.4-10.4); Platelet Count 179 10^3/uL (150-450); Red Blood Count 3.22 10^6 /uL (4.18-5.48); Red Cell Distribution Width 15 % (10-15); White Blood Count 6.6 10^3/uL (3.5-10.8)
--- NOTE | 2019-06-23 13:10 | PN ---
Subjective Date of Service: 06/23/19 Interval History: Patient seen this morning, post cardiac cath yesterday 06/22/19. no acute events earlier this morning. However, around 11:40 am he did develop sinus pause of 3 secs few times at least 4 times with 1 degree AV block. I explained to patient that I would like him to stay and continue tele monitor. He was not pleased but agreed reluctantly. Discussed the above with Dr. Hannon and recommended to hold on his am Toprol-XL (He received his 37.5 mg this morning) and decrease his catapress to 0.1 mg weekly. Patient only complains now is still his right shoulder pain. Past Medical History: Unchanged from Admission Objective Active Medications: Acetaminophen (Tylenol Tab*) 650 mg PO Q4H PRN PRN Reason: FEVER/PAIN Acetaminophen/Codeine Phosphate (Tylenol/Codeine 30 Mg Tab*) 1 tab PO Q4H PRN PRN Reason: PAIN - MODERATE Last Admin: 06/19/19 21:37 Dose: 1 tab Amlodipine Besylate (Norvasc Tab*) 10 mg PO BID [facility] Last Admin: 06/23/19 08:44 Dose: 10 mg Aspirin (Aspirin Ec Tab*) 81 mg PO DAILY [facility] Last Admin: 06/23/19 08:44 Dose: 81 mg Clonidine HCl (Bqazxzkn-Rvr-0 0.2 Mg Patch*) 0.1 mg TRANSDERM WEEKLY [facility] Finasteride (Proscar Tab*) 5 mg PO QPM [facility] Last Admin: 06/22/19 17:59 Dose: 5 mg Furosemide (Lasix Tab*) 40 mg PO BID [facility] Last Admin: 06/23/19 08:45 Dose: 40 mg Isosorbide Mononitrate (Imdur Er Tab*) 120 mg PO BID [facility] Last Admin: 06/23/19 08:45 Dose: 120 mg Lisinopril (Prinivil Tab*) 10 mg PO QAM [facility] Last Admin: 06/23/19 08:45 Dose: 10 mg Magnesium Oxide (Magox 400 Tab*) 400 mg PO QAM [facility] Last Admin: 06/23/19 08:45 Dose: 400 mg Minoxidil (Loniten Tab*) 2.5 mg PO BID [facility] Last Admin: 06/23/19 08:47 Dose: 2.5 mg Nitroglycerin (Nitroglycerin Tab 0.4 Mg*) 0.4 mg SL Q5M PRN PRN Reason: ANGINA Pto:Denisha-Jenny 1 dose PO DAILY [facility] Last Admin: 06/23/19 08:47 Dose: 1 dose Ondansetron HCl (Zofran Inj*) 4 mg IV Q6H PRN PRN Reason: NAUSEA Pantoprazole Sodium (Protonix Tab*) 40 mg PO DAILY [facility] Last Admin: 06/23/19 08:48 Dose: 40 mg Rosuvastatin Calcium (Crestor (Nf)) 40 mg PO 1700 [facility] Last Admin: 06/22/19 18:02 Dose: 40 mg Sertraline HCl (Zoloft*) 50 mg PO QAM [facility] Last Admin: 06/23/19 08:48 Dose: 50 mg Terazosin HCl (Hytrin Cap*) 5 mg PO 2100 [facility] Last Admin: 06/22/19 20:09 Dose: 5 mg Ticagrelor (Brilinta*) 90 mg PO BID [facility] Last Admin: 06/23/19 08:48 Dose: 90 mg Vitamin B Complex/Vitamin E (B Complex-50*) 1 tab PO QAM [facility] Last Admin: 06/23/19 08:49 Dose: 1 tab Vital Signs - 8 hr 06/23/19 06/23/19 06/23/19 06:00 06:02 07:00 Pulse Rate 75 61 72 Respiratory 20 22 20 Rate Blood Pressure 133/67 133/64 (mmHg) O2 Sat by Pulse 92 92 94 Oximetry 06/23/19 06/23/19 06/23/19 07:01 08:00 08:01 Pulse Rate 56 67 Respiratory 22 21 9 Rate Blood Pressure 115/68 (mmHg) O2 Sat by Pulse 92 92 Oximetry 06/23/19 06/23/19 06/23/19 08:54 09:00 10:00 Pulse Rate 89 86 58 Respiratory 21 20 23 Rate Blood Pressure 134/69 139/76 123/55 (mmHg) O2 Sat by Pulse 94 95 94 Oximetry Oxygen Devices in Use Now: None Appearance: Awake, Alert. no distress Eyes: No Scleral Icterus Ears/Nose/Mouth/Throat: NL Teeth, Lips, Gums, Mucous Membranes Moist Neck: NL Appearance and Movements; NL JVP, Trachea Midline Respiratory: Symmetrical Chest Expansion and Respiratory Effort, Clear to Auscultation Cardiovascular: - - bradycardia Abdominal: NL Sounds; No Tenderness; No Distention Result Diagrams: 06/23/19 09:33 06/23/19 05:21 Assess/Plan/Problems-Billing Assessment: - Patient Problems (1) Bradycardia Current Visit: No Status: Acute Code(s): R00.1 - BRADYCARDIA, UNSPECIFIED SNOMED Code(s): 44997832 Comment: - Reccurent now with sinus pauses. - Will hold his am toprol (he recieved it today). Decrease catapress to 0.1 mg. - Discssed with Dr. Hannon and will readress his beta blokcer in am - Patient agreed to stay and monitor on tele. Recheck electrolytes in am and TSH (2) NSTEMI (non-ST elevated myocardial infarction) Current Visit: Yes Status: Acute Code(s): I21.4 - NON-ST ELEVATION (NSTEMI) MYOCARDIAL INFARCTION SNOMED Code(s): 71926010 Comment: - hx of CAD: on brilinta, aspirin, BB, Raymundo. - Abnormal stress test, s/p CATH: in stent stenosis: s/p stent- - at home takes crestor 20mg Dr. Lakhani recommends increasing crestor 40mg (3) ESRD (end stage renal disease) Current Visit: Yes Status: Acute Code(s): N18.6 - END STAGE RENAL DISEASE SNOMED Code(s): 61146905 Comment: on HD- MWF (4) Shoulder pain Current Visit: Yes Status: Acute Code(s): M25.519 - PAIN IN UNSPECIFIED SHOULDER SNOMED Code(s): 99372260 Comment: - seen by ortho- likely tendon issue, recommend PT - hot shower seemed to help, ordered hot compress - s/p one dose of flexeril previoulsy seemed to have help, currently is still in pain. Will need ortho referral outpatient and continue PT (5) DVT prophylaxis Current Visit: No Status: Acute Onset Date: 02/01/15 Code(s): JPA9948 - SNOMED Code(s): 961419468 Comment: heparin drip for now
[2019-06-23] MEDS ORDERED: cloNIDine 0.1 MG PATCH* 0.1 MG/24 HR 7 DAY PATCH TRANSDERM SCH (13:30)
[2019-06-23] MEDS ORDERED: Cyclobenzaprine TAB* 10 MG PO ONE (16:11)
[2019-06-23] MEDS: Finasteride TAB* 5 MG PO SCH (17:37)
[2019-06-23] MEDS: Docusate CAP* 100 MG PO PRN ×2 (17:37→21:11)
[2019-06-23] MEDS: CMCS: Rosuvastatin (NF) 20 MG TAB PO SCH (17:37)
[2019-06-23] MEDS: Terazosin CAP* 5 MG PO SCH (21:12)
[2019-06-24 06:14] LABS: ABS Eosinophils 0.3 10^3/ul (0-0.6); ABS Lymphocytes 1.1 10^3/ul (1.0-4.8); ABS Monocytes 0.7 10^3/ul (0-0.8); ABS Neutrophils 4.9 10^3/ul (1.5-7.7); Eosinophil % 3.9 %; Hematocrit 25 % (42-52); Hemoglobin 8.7 g/dL (14.0-18.0); Mean Corpuscular HGB Conc 35 g/dL (31-36); Mean Corpuscular Hemoglobin 30 pg (27-31); Mean Corpuscular Volume 84 fL (80-94); Mean Platelet Volume 8.3 fL (7.4-10.4); Platelet Count 174 10^3/uL (150-450); Red Blood Count 2.97 10^6 /uL (4.18-5.48); Red Cell Distribution Width 15 % (10-15); White Blood Count 7.1 10^3/uL (3.5-10.8)
[2019-06-24] MEDS: Acetaminophen / Codeine* #3 (300 MG/30 MG) TAB PO PRN (06:14)
[2019-06-24 06:30] LABS: Anion Gap 12 mmol/L (2-11); BUN/Creatinine Ratio 10.6 (8-20); Blood Urea Nitrogen 71 mg/dL (6-24); CO2 Carbon Dioxide 23 mmol/L (22-32); Calcium 8.7 mg/dL (8.6-10.3); Chloride 99 mmol/L (101-111); Cholesterol 124 mg/dL; EGFR African American 10.1 (>60); EGFR Non-African American 8.3 (>60); Glucose 132 mg/dL (70-100); HDL Cholesterol 34.5 mg/dL; LDL Cholesterol 72 mg/dL; Magnesium 2.1 mg/dL (1.9-2.7); Phosphorus 4.9 mg/dL (2.5-5.0); Potassium 4.2 mmol/L (3.5-5.0); Sodium 134 mmol/L (135-145); Triglycerides 90 mg/dL
[2019-06-24 06:54] LABS: TSH (Thyroid Stimulating Horm) 3.01 mcIU/mL (0.34-5.60)
[2019-06-24] MEDS ORDERED: Heparin DIALYSIS ONLY(*) 1,000 UNITS/ML VIAL ONE (11:00)
[2019-06-24] MEDS ORDERED: EPOETIN ALFA-EPBX * 2,000 UNIT/ML VIAL IV ONE (11:00)
[2019-06-24] MEDS ORDERED: EPOETIN ALFA-EPBX * 3,000 UNIT/ML VIAL IV ONE (11:00)
[2019-06-24] MEDS ORDERED: Clopidogrel TAB* 300 MG PO ONE (12:15)
[2019-06-24] MEDS: Lisinopril TAB* 5 MG PO SCH (13:49)
[2019-06-24] MEDS: Sertraline* 50 MG TAB PO SCH (13:49)
[2019-06-24] MEDS: Pantoprazole TAB * 40 MG TAB PO SCH (13:49)
[2019-06-24] MEDS: Magnesium Oxide TAB* 400 MG PO SCH (13:49)
[2019-06-24] MEDS: Aspirin EC TAB* 81 MG TAB.EC PO SCH (13:49)
[2019-06-24] MEDS: Vitamin B Complex TAB PO SCH (13:50)
[2019-06-24] MEDS: MinoXIDil TAB* 2.5 MG TAB PO SCH ×2 (13:50→20:24)
[2019-06-24] MEDS: RENA VITE PO SCH (13:50)
[2019-06-24] MEDS: Furosemide TAB* 40 MG PO SCH ×2 (13:54→20:25)
[2019-06-24] MEDS: Isosorbide Mononitrate ER TAB* 60 MG PO SCH ×2 (13:54→20:25)
[2019-06-24] MEDS: amLODIPine TAB* 5 MG PO SCH ×2 (13:55→20:25)
[2019-06-24] MEDS: Ticagrelor* 90 MG TAB PO SCH (13:56)
--- NOTE | 2019-06-24 16:37 | PN ---
Subjective Date of Service: 06/24/19 Interval History: Patient seen today during dialysis and later on in his room. He was noted to have frequent sinus pause on tele today, majority were while he was in dialysis , and at times while attempting to urinate. I reviewed the course of his sinus pause with Dr. Hannon and his Brilinta was changed to Plavix. We kept him off his metoprolol. I reassess him this afternoon again before I resume low dose beta kedar he was still having sinuses pause. He refused chauhan catheter ( thinking it is causing vasovagal and bradycardia). I will hold off on lopressor and will discontinue his catapress patch and will treat his BP for now with hydralazine Past Medical History: Unchanged from Admission Objective Active Medications: Acetaminophen (Tylenol Tab*) 650 mg PO Q4H PRN PRN Reason: FEVER/PAIN Acetaminophen/Codeine Phosphate (Tylenol/Codeine 30 Mg Tab*) 1 tab PO Q4H PRN PRN Reason: PAIN - MODERATE Last Admin: 06/24/19 06:14 Dose: 1 tab Amlodipine Besylate (Norvasc Tab*) 10 mg PO BID [facility] Last Admin: 06/24/19 13:55 Dose: 10 mg Aspirin (Aspirin Ec Tab*) 81 mg PO DAILY [facility] Last Admin: 06/24/19 13:49 Dose: 81 mg Clonidine HCl (Djubwmoi-Qpf-7 0.1 Mg Patch*) 0.1 mg TRANSDERM WEEKLY [facility] Clopidogrel Bisulfate (Plavix Tab*) 75 mg PO DAILY [facility] Docusate Sodium (Colace Cap*) 100 mg PO BID PRN PRN Reason: CONSTIPATION Last Admin: 06/23/19 21:11 Dose: 100 mg Finasteride (Proscar Tab*) 5 mg PO QPM [facility] Last Admin: 06/23/19 17:37 Dose: 5 mg Furosemide (Lasix Tab*) 40 mg PO BID [facility] Last Admin: 06/24/19 13:54 Dose: 40 mg Isosorbide Mononitrate (Imdur Er Tab*) 120 mg PO BID [facility] Last Admin: 06/24/19 13:54 Dose: 120 mg Lisinopril (Prinivil Tab*) 10 mg PO QAM [facility] Last Admin: 06/24/19 13:49 Dose: 10 mg Magnesium Oxide (Magox 400 Tab*) 400 mg PO QAM [facility] Last Admin: 06/24/19 13:49 Dose: 400 mg Minoxidil (Loniten Tab*) 2.5 mg PO BID [facility] Last Admin: 06/24/19 13:50 Dose: 2.5 mg Nitroglycerin (Nitroglycerin Tab 0.4 Mg*) 0.4 mg SL Q5M PRN PRN Reason: ANGINA Pto:Denisha-Jenny 1 dose PO DAILY [facility] Last Admin: 06/24/19 13:50 Dose: 1 dose Ondansetron HCl (Zofran Inj*) 4 mg IV Q6H PRN PRN Reason: NAUSEA Pantoprazole Sodium (Protonix Tab*) 40 mg PO DAILY [facility] Last Admin: 06/24/19 13:49 Dose: 40 mg Rosuvastatin Calcium (Crestor (Nf)) 40 mg PO 1700 [facility] Last Admin: 06/23/19 17:37 Dose: 40 mg Sertraline HCl (Zoloft*) 50 mg PO QAM [facility] Last Admin: 06/24/19 13:49 Dose: 50 mg Terazosin HCl (Hytrin Cap*) 5 mg PO 2100 [facility] Last Admin: 06/23/19 21:12 Dose: 5 mg Vitamin B Complex/Vitamin E (B Complex-50*) 1 tab PO QAM [facility] Last Admin: 06/24/19 13:50 Dose: 1 tab Vital Signs - 8 hr 06/24/19 06/24/19 06/24/19 13:53 15:47 16:02 Temperature 97.2 F 98.1 F Pulse Rate 66 56 Respiratory 19 16 14 Rate Blood Pressure 156/64 142/68 (mmHg) O2 Sat by Pulse 100 98 Oximetry Oxygen Devices in Use Now: None Appearance: awake, alert. no distress Ears/Nose/Mouth/Throat: NL Teeth, Lips, Gums Neck: NL Appearance and Movements; NL JVP, Trachea Midline Respiratory: Symmetrical Chest Expansion and Respiratory Effort, Clear to Auscultation Cardiovascular: - - regularly regular, bracycardic Abdominal: NL Sounds; No Tenderness; No Distention Neurological: Alert and Oriented x 3 Result Diagrams: 06/24/19 05:48 06/24/19 05:48 Assess/Plan/Problems-Billing Assessment: 64 y/o male admitted for atypical chest pain and right shoulder pain found to have elevated troponin peaked at 0.95 went for cardiac cath on 06/22/19 with stent placement of critical 90-95% stenosis of his proximal portion of free pedicle radial artery graft to his posterior descending artery (which was previously stented)! now he has been develloping sinuses pause and bradyacardia up to 3 seconds pause. - Patient Problems (1) Bradycardia Current Visit: No Status: Acute Code(s): R00.1 - BRADYCARDIA, UNSPECIFIED SNOMED Code(s): 95829914 Comment: - Reccurent now with sinus pauses. - He has been off toprol today. I will stop his catapress to 0.1 mg ( previoulsy was on 0.2 mg) - Patient agreed to stay and monitor on tele. Recheck electrolytes in am. Add troponin to his labs from this morning. - Brilinta switched to Plavix as it was shown to cause bradycardia (I appreciate Dr. Hannon's input) (2) NSTEMI (non-ST elevated myocardial infarction) Current Visit: Yes Status: Acute Code(s): I21.4 - NON-ST ELEVATION (NSTEMI) MYOCARDIAL INFARCTION SNOMED Code(s): 69466834 Comment: - hx of CAD: switch brilinta to plavix due to bradycardia, aspirin, BB, Raymundo. - Abnormal stress test, s/p CATH: in stent stenosis: s/p stent- placement of critical 90-95% stenosis of his proximal portion of free pedicle radial artery graft to his posterior descending artery - at home takes crestor 20mg Dr. Lakhani recommends increasing crestor 40mg (3) ESRD (end stage renal disease) Current Visit: Yes Status: Acute Code(s): N18.6 - END STAGE RENAL DISEASE SNOMED Code(s): 24290654 Comment: on HD- MWF (4) Shoulder pain Current Visit: Yes Status: Acute Code(s): M25.519 - PAIN IN UNSPECIFIED SHOULDER SNOMED Code(s): 44640423 Comment: - seen by ortho- likely tendon issue, recommend PT - hot shower seemed to help, ordered hot compress - s/p one dose of flexeril previoulsy seemed to have help, currently is still in pain. Will need ortho referral outpatient and continue PT - Flexeril given (5) BPH (benign prostatic hyperplasia) Current Visit: No Status: Acute Code(s): N40.0 - BENIGN PROSTATIC HYPERPLASIA WITHOUT LOWER URINRY TRACT SYMP SNOMED Code(s): 242044113 Comment: - Continue terazosin 5 mg, finasteride 5 mg daily - Given his urinary retention on 06/23/19 and bradycardia everytime he tried to void. he was offered chauhan catheter but he declined (6) Hypertension Current Visit: No Status: Acute Code(s): I10 - ESSENTIAL (PRIMARY) HYPERTENSION SNOMED Code(s): 44372915 Comment: - hydralazine 10 mg tid added. Continue norvasc, imdur, - clonidine, and lopressor stopped due to bradycardia (7) Urinary retention Current Visit: No Status: Acute Code(s): R33.9 - RETENTION OF URINE, UNSPECIFIED SNOMED Code(s): 836937605 Comment: - refused chauhan catheter (8) DVT prophylaxis Current Visit: No Status: Acute Code(s): EVB1250 - SNOMED Code(s): 227858640 Comment: ambulate.
[2019-06-24 17:02] LABS: Creatine Kinase 58 U/L (10-223)
[2019-06-24 17:07] LABS: CKMB ng/mL 1.8 ng/mL (0.6-6.3)
[2019-06-24] MEDS: Finasteride TAB* 5 MG PO SCH (17:09)
[2019-06-24] MEDS: hydrALAZINE TAB* 10 MG PO SCH ×2 (17:09→20:25)
[2019-06-24] MEDS: CMCS: Rosuvastatin (NF) 20 MG TAB PO SCH (17:09)
[2019-06-24 17:11] LABS: Troponin I 0.15 ng/mL (<0.04)
[2019-06-24 19:15] LABS: Urine Appearance Turbid; Urine Bacteria 2+ (Absent); Urine Bilirubin Negative (Negative); Urine Blood 1+ (Negative); Urine Color Yellow; Urine Glucose Negative (Negative); Urine Ketones Negative (Negative); Urine Nitrite Positive (Negative); Urine Protein 2+(100 mg/dL) (Negative); Urine Red Blood Cell 3+(>10/hpf) (Absent); Urine Specific Gravity 1.006 (1.010-1.030); Urine Squamous Epithelial Cell Present (Absent); Urine Transitional Epithelial Present (Absent); Urine Urobilinogen Negative (Negative); Urine White Blood Cell 3+(>20/hpf) (Absent)
[2019-06-24] MEDS: Terazosin CAP* 5 MG PO SCH (20:24)
[2019-06-24] MEDS ORDERED: Magnesium Hydroxide LIQ* 30 ML UDC PO PRN (21:54)
[2019-06-24] MEDS ORDERED: Polyethylene Glycol 3350* 17 GM PACKET PO SCH (22:00)
--- NOTE | 2019-06-24 23:42 | PN ---
DIALYSIS NOTE: DATE OF DIALYSIS: 06/24/19 SUBJECTIVE: The patient was seen and examined during dialysis, tolerating the procedure well. Vitals and labs have been reviewed. PHYSICAL EXAMINATION: HEENT: NC/AT. Heart: S1 and S2 present. Regular at the time of exam. Lungs: Decreased breath sounds bilaterally. Abdomen: Soft. Extremities: No edema. Neuro: Alert and oriented. ASSESSMENT AND PLAN: 1. End-stage renal disease, on hemodialysis on Saturday, Saturday, and Saturday. The patient is being dialyzed on his usual prescription. Dialysis orders discussed with the nurse. 2. Ultrafiltration to the patient's dry weight. 3. The patient is tolerating the procedure well. [id number]/[facility] #: [id number] MTDPrakash
[2019-06-25] MEDS: RENA VITE PO SCH (08:54)
[2019-06-25] MEDS: MinoXIDil TAB* 2.5 MG TAB PO SCH (08:55)
[2019-06-25] MEDS: amLODIPine TAB* 5 MG PO SCH (08:55)
[2019-06-25] MEDS: Magnesium Oxide TAB* 400 MG PO SCH (08:57)
[2019-06-25] MEDS: Furosemide TAB* 40 MG PO SCH (08:57)
[2019-06-25] MEDS: Isosorbide Mononitrate ER TAB* 60 MG PO SCH (08:57)
[2019-06-25] MEDS: hydrALAZINE TAB* 10 MG PO SCH (08:58)
[2019-06-25] MEDS: Vitamin B Complex TAB PO SCH (08:59)
[2019-06-25] MEDS: Pantoprazole TAB * 40 MG TAB PO SCH (08:59)
[2019-06-25] MEDS: Sertraline* 50 MG TAB PO SCH (09:00)
[2019-06-25] MEDS ORDERED: Clopidogrel TAB* 75 MG PO SCH (09:00)
[2019-06-25] MEDS: Lisinopril TAB* 5 MG PO SCH (09:00)
[2019-06-25] MEDS: Aspirin EC TAB* 81 MG TAB.EC PO SCH (09:00)
[2019-06-25] MEDS ORDERED: Metoprolol Tartrate TAB* 25 MG PO ONE (10:33)
--- NOTE | 2019-06-25 13:07 | PN ---
Subjective Date of Service: 06/25/19 Interval History: f/u NSTEMI/PCI paitent denies any cp or dyspnea no lightheadedness 12.5 mg po metoprolol tartrate received today tolerating well nsvt last pm no further asymptomatic sinus pauses Medications Active Medications: Acetaminophen (Tylenol Tab*) 650 mg PO Q4H PRN PRN Reason: FEVER/PAIN Acetaminophen/Codeine Phosphate (Tylenol/Codeine 30 Mg Tab*) 1 tab PO Q4H PRN PRN Reason: PAIN - MODERATE Last Admin: 06/24/19 06:14 Dose: 1 tab Amlodipine Besylate (Norvasc Tab*) 10 mg PO BID [facility] Last Admin: 06/25/19 08:55 Dose: 10 mg Aspirin (Aspirin Ec Tab*) 81 mg PO DAILY [facility] Last Admin: 06/25/19 09:00 Dose: 81 mg Clopidogrel Bisulfate (Plavix Tab*) 75 mg PO DAILY [facility] Last Admin: 06/25/19 08:56 Dose: 75 mg Docusate Sodium (Colace Cap*) 100 mg PO BID PRN PRN Reason: CONSTIPATION Last Admin: 06/23/19 21:11 Dose: 100 mg Finasteride (Proscar Tab*) 5 mg PO QPM [facility] Last Admin: 06/24/19 17:09 Dose: 5 mg Furosemide (Lasix Tab*) 40 mg PO BID [facility] Last Admin: 06/25/19 08:57 Dose: 40 mg Hydralazine HCl (Apresoline Tab*) 25 mg PO TID [facility] Isosorbide Mononitrate (Imdur Er Tab*) 120 mg PO BID [facility] Last Admin: 06/25/19 08:57 Dose: 120 mg Lisinopril (Prinivil Tab*) 10 mg PO QAM [facility] Last Admin: 06/25/19 09:00 Dose: 10 mg Magnesium Hydroxide (Milk Of Magnesia Liq*) 30 ml PO Q4H PRN PRN Reason: CONSTIPATION Magnesium Oxide (Magox 400 Tab*) 400 mg PO QAM [facility] Last Admin: 06/25/19 08:57 Dose: 400 mg Metoprolol Succinate (Toprol Xl Tab*) 25 mg PO DAILY [facility] Minoxidil (Loniten Tab*) 2.5 mg PO BID [facility] Last Admin: 06/25/19 08:55 Dose: 2.5 mg Nitroglycerin (Nitroglycerin Tab 0.4 Mg*) 0.4 mg SL Q5M PRN PRN Reason: ANGINA Pto:Denisha-Jenny 1 dose PO DAILY [facility] Last Admin: 06/25/19 08:54 Dose: 1 dose Ondansetron HCl (Zofran Inj*) 4 mg IV Q6H PRN PRN Reason: NAUSEA Pantoprazole Sodium (Protonix Tab*) 40 mg PO DAILY [facility] Last Admin: 06/25/19 08:59 Dose: 40 mg Polyethylene Glycol/Electrolytes (Miralax*) 17 gm PO BEDTIME [facility] Last Admin: 06/24/19 22:28 Dose: 17 gm Rosuvastatin Calcium (Crestor (Nf)) 40 mg PO 1700 [facility] Last Admin: 06/24/19 17:09 Dose: 40 mg Sertraline HCl (Zoloft*) 50 mg PO QAM [facility] Last Admin: 06/25/19 09:00 Dose: 50 mg Terazosin HCl (Hytrin Cap*) 5 mg PO 2100 [facility] Last Admin: 06/24/19 20:24 Dose: 5 mg Vitamin B Complex/Vitamin E (B Complex-50*) 1 tab PO QAM [facility] Last Admin: 06/25/19 08:59 Dose: 1 tab Objective Vital Signs: Temp Pulse Resp BP Pulse Ox 98.4 F 78 16 156/64 94 06/25/19 07:30 06/25/19 07:30 06/25/19 08:00 06/25/19 07:30 06/25/19 07:30 Oxygen Devices in Use Now: None Appearance: chronically ill, not toxic appearing Ears/Nose/Mouth/Throat: Clear Oropharnyx, Mucous Membranes Moist Neck: Trachea Midline Respiratory: Symmetrical Chest Expansion and Respiratory Effort, Clear to Auscultation Cardiovascular: RRR, - - 1/6 systolic murmur Extremities: No Clubbing, Cyanosis Skin: No Rash or Ulcers Neurological: Alert and Oriented x 3 Laboratory Results: 06/24/19 05:48 06/24/19 05:48 INR (Anticoag Therapy) 0.91 (0.82-1.09) 06/18/19 03:00 APTT 32.6 seconds (26.0-38.0) 06/18/19 03:00 Total Bilirubin 0.90 mg/dL (0.2-1.0) 06/23/19 05:21 AST 10 U/L (13-39) L 06/23/19 05:21 ALT 9 U/L (7-52) 06/23/19 05:21 Alkaline Phosphatase 66 U/L (34-104) 06/23/19 05:21 CK-MB (CK-2) 1.8 ng/mL (0.6-6.3) 06/24/19 05:48 B-Natriuretic Peptide 413 pg/mL (<=100) H 06/18/19 03:00 Total Protein 6.2 g/dL (6.4-8.9) L 06/23/19 05:21 Albumin 3.9 g/dL (3.2-5.2) 06/23/19 05:21 Globulin 2.3 g/dL (2-4) 06/23/19 05:21 Albumin/Globulin Ratio 1.7 (1-3) 06/23/19 05:21 Triglycerides 90 mg/dL 06/24/19 05:48 Cholesterol 124 mg/dL 06/24/19 05:48 LDL Cholesterol 72 mg/dL 06/24/19 05:48 HDL Cholesterol 34.5 mg/dL 06/24/19 05:48 TSH 3.01 mcIU/mL (0.34-5.60) 06/24/19 05:48 06/18/19 06/18/19 06/18/19 02:59 06:10 12:36 Troponin I 0.09 H* 0.30 H* 0.90 H* 06/18/19 06/19/19 06/24/19 15:12 06:12 05:48 Troponin I 0.95 H* 0.79 H* 0.15 H* Assessment/Plan Patient known to me, also have discussed with Dr. Hannon. If graft restenosis again ? brachytherapy. Has asymptomatic sinus node disease now resolved since stopped clonidine (? also vagal contribution from ongong bladder issues as well) . He has no syncope/presyncope prior to admission. Given NSVT last PM 14 beats will restart beta-kedar at toprol 25 mg po daily (he received roughly equivalent of tartrate 12.5 mg po this AM and will monitor today). BP elevated will also increase hydralazine. Both ordered.
[2019-06-25] MEDS: Acetaminophen / Codeine* #3 (300 MG/30 MG) TAB PO PRN (13:51)
[2019-06-25] MEDS ORDERED: hydrALAZINE TAB* 25 MG PO SCH (14:00)
--- NOTE | 2019-06-25 14:02 | PN ---
Subjective Date of Service: 06/25/19 Interval History: patient seen this morning. he has no complains. NO chest pain or shortness of breath. He had 16 beats of NSVT last pm. He also did have urinary retention again last night at least 500 cc required straight cath. again he refused his chauhan catheter and he wants to discuss with his urologist before deciding. His UA is positive. Possible UTI / cystitis from his urinary retention will start him on cefazolin Past Medical History: Unchanged from Admission Objective Active Medications: Acetaminophen (Tylenol Tab*) 650 mg PO Q4H PRN PRN Reason: FEVER/PAIN Acetaminophen/Codeine Phosphate (Tylenol/Codeine 30 Mg Tab*) 1 tab PO Q4H PRN PRN Reason: PAIN - MODERATE Last Admin: 06/25/19 13:51 Dose: 1 tab Amlodipine Besylate (Norvasc Tab*) 10 mg PO BID [facility] Last Admin: 06/25/19 08:55 Dose: 10 mg Aspirin (Aspirin Ec Tab*) 81 mg PO DAILY [facility] Last Admin: 06/25/19 09:00 Dose: 81 mg Clopidogrel Bisulfate (Plavix Tab*) 75 mg PO DAILY [facility] Last Admin: 06/25/19 08:56 Dose: 75 mg Docusate Sodium (Colace Cap*) 100 mg PO BID PRN PRN Reason: CONSTIPATION Last Admin: 06/23/19 21:11 Dose: 100 mg Finasteride (Proscar Tab*) 5 mg PO QPM [facility] Last Admin: 06/24/19 17:09 Dose: 5 mg Furosemide (Lasix Tab*) 40 mg PO BID [facility] Last Admin: 06/25/19 08:57 Dose: 40 mg Hydralazine HCl (Apresoline Tab*) 25 mg PO TID [facility] Last Admin: 06/25/19 13:43 Dose: 25 mg Isosorbide Mononitrate (Imdur Er Tab*) 120 mg PO BID [facility] Last Admin: 06/25/19 08:57 Dose: 120 mg Lisinopril (Prinivil Tab*) 10 mg PO QAM [facility] Last Admin: 06/25/19 09:00 Dose: 10 mg Magnesium Hydroxide (Milk Of Magnesia Liq*) 30 ml PO Q4H PRN PRN Reason: CONSTIPATION Magnesium Oxide (Magox 400 Tab*) 400 mg PO QAM [facility] Last Admin: 06/25/19 08:57 Dose: 400 mg Metoprolol Succinate (Toprol Xl Tab*) 25 mg PO DAILY [facility] Minoxidil (Loniten Tab*) 2.5 mg PO BID [facility] Last Admin: 06/25/19 08:55 Dose: 2.5 mg Nitroglycerin (Nitroglycerin Tab 0.4 Mg*) 0.4 mg SL Q5M PRN PRN Reason: ANGINA Pto:Denisha-Jenny 1 dose PO DAILY [facility] Last Admin: 06/25/19 08:54 Dose: 1 dose Ondansetron HCl (Zofran Inj*) 4 mg IV Q6H PRN PRN Reason: NAUSEA Pantoprazole Sodium (Protonix Tab*) 40 mg PO DAILY [facility] Last Admin: 06/25/19 08:59 Dose: 40 mg Polyethylene Glycol/Electrolytes (Miralax*) 17 gm PO BEDTIME [facility] Last Admin: 06/24/19 22:28 Dose: 17 gm Rosuvastatin Calcium (Crestor (Nf)) 40 mg PO 1700 [facility] Last Admin: 06/24/19 17:09 Dose: 40 mg Sertraline HCl (Zoloft*) 50 mg PO QAM [facility] Last Admin: 06/25/19 09:00 Dose: 50 mg Terazosin HCl (Hytrin Cap*) 5 mg PO 2100 [facility] Last Admin: 06/24/19 20:24 Dose: 5 mg Vitamin B Complex/Vitamin E (B Complex-50*) 1 tab PO QAM [facility] Last Admin: 06/25/19 08:59 Dose: 1 tab Vital Signs - 8 hr 06/25/19 06/25/19 06/25/19 07:30 08:00 10:59 Temperature 98.4 F 97.9 F Pulse Rate 78 65 Respiratory 16 16 16 Rate Blood Pressure 156/64 127/60 (mmHg) O2 Sat by Pulse 94 96 Oximetry 06/25/19 13:51 Temperature Pulse Rate Respiratory 16 Rate Blood Pressure (mmHg) O2 Sat by Pulse Oximetry Oxygen Devices in Use Now: None Appearance: awake, flat affect. no distress Eyes: No Scleral Icterus Ears/Nose/Mouth/Throat: NL Teeth, Lips, Gums, Mucous Membranes Moist Neck: Trachea Midline Respiratory: Symmetrical Chest Expansion and Respiratory Effort, Clear to Auscultation Cardiovascular: NL Sounds; No Murmurs; No JVD, No Edema Abdominal: NL Sounds; No Tenderness; No Distention Neurological: Alert and Oriented x 3, NL Gait Result Diagrams: 06/24/19 05:48 06/24/19 05:48 Assess/Plan/Problems-Billing Assessment: 64 y/o male admitted for atypical chest pain and right shoulder pain found to have elevated troponin peaked at 0.95 went for cardiac cath on 06/22/19 with stent placement of critical 90-95% stenosis of his proximal portion of free pedicle radial artery graft to his posterior descending artery (which was previously stented)! now he has been develloping sinuses pause and bradyacardia up to 3 seconds pause. - Patient Problems (1) Bradycardia Current Visit: No Status: Acute Code(s): R00.1 - BRADYCARDIA, UNSPECIFIED SNOMED Code(s): 51032762 Comment: - Reccurent now with sinus pauses. - He has been off toprol today. I did stop his catapress to 0.1 mg (previoulsy was on 0.2 mg) - Brilinta switched to Plavix as it was shown to cause bradycardia (I appreciate Dr. Hannon's input) - I spoke to Dr. Beltre and recommended resuming his toprol XL 25 mg daily and follow up oupatient. No further recommendaitons. - I did recommend to patient to follow up with Urology to discuss his Urinary retention discuss chronic chauhan catheter. (2) NSTEMI (non-ST elevated myocardial infarction) Current Visit: Yes Status: Acute Code(s): I21.4 - NON-ST ELEVATION (NSTEMI) MYOCARDIAL INFARCTION SNOMED Code(s): 52507543 Comment: - hx of CAD: switch brilinta to plavix due to bradycardia, aspirin, BB, Raymundo. - Abnormal stress test, s/p CATH: in stent stenosis: s/p stent- placement of critical 90-95% stenosis of his proximal portion of free pedicle radial artery graft to his posterior descending artery - at home takes crestor 20mg Dr. Lakhani recommends increasing crestor 40mg (3) ESRD (end stage renal disease) Current Visit: Yes Status: Acute Code(s): N18.6 - END STAGE RENAL DISEASE SNOMED Code(s): 00990246 Comment: on HD- MWF (4) Shoulder pain Current Visit: Yes Status: Acute Code(s): M25.519 - PAIN IN UNSPECIFIED SHOULDER SNOMED Code(s): 78938952 Comment: - seen by ortho- likely tendon issue, recommend PT - hot shower seemed to help, ordered hot compress - s/p one dose of flexeril previoulsy seemed to have help, currently is still in pain. Will need ortho referral outpatient and continue PT - Flexeril given (5) BPH (benign prostatic hyperplasia) Current Visit: No Status: Acute Code(s): N40.0 - BENIGN PROSTATIC HYPERPLASIA WITHOUT LOWER URINRY TRACT SYMP SNOMED Code(s): 656746853 Comment: - Continue terazosin 5 mg, finasteride 5 mg daily - Given his urinary retention on 06/23/19 and bradycardia everytime he tried to void. he was offered chauhan catheter but he declined - Recommernded to follow up with Dr. Fleming (6) Hypertension Current Visit: No Status: Acute Code(s): I10 - ESSENTIAL (PRIMARY) HYPERTENSION SNOMED Code(s): 96133349 Comment: - hydralazine incrased to 25 mg tid added. Continue norvasc, imdur , - clonidine, and lopressor stopped due to bradycardia, but recommended to resume given his SVT off lopressor (7) Urinary retention Current Visit: No Status: Acute Code(s): R33.9 - RETENTION OF URINE, UNSPECIFIED SNOMED Code(s): 749954311 Comment: - refused chauhan catheter (8) UTI (urinary tract infection) Current Visit: No Status: Acute Priority: Medium Onset Date: 02/01/15 Comment: - UA positive. Given his ESRD could be colonizations - however, due to urinary retention it also could be true UTI. I will place him on keflex and will defer to PCP to follow final urine culture (9) DVT prophylaxis Current Visit: No Status: Acute Code(s): XKT3816 - SNOMED Code(s): 171620060 Comment: ambulate.
[2019-06-25] MEDS ORDERED: Cephalexin CAP* 500 MG PO SCH (15:00)
[2019-06-25 16:38] VITALS: BP 136/62
--- NOTE | 2019-06-25 16:59 | PN ---
Cardiology Progress Note Date of Service: 06/25/19 Patient continues with what appears to be atrial bradycardia at rest occasionally rates briefly high 30's then to 40's and back to normal. He is watching television and entirely asymptomatic Will decrease toprol to 12.5 mg po daily (ordered) We discussed atrial lead pacemaker for indication of restarting clonidine and increasing beta-kedar dose Given infection risk with hemodialysis, lack of symptoms and lack of any significant AV node dysfunction, lack of conclusive mortality benefit with pacing for sinus node disease, will continue to monitor although a pacemaker may eventually be required. Patient can be discharged from a cardiac standpoint
[2019-06-25] MEDS: Finasteride TAB* 5 MG PO SCH (17:07)
[2019-06-25] MEDS: CMCS: Rosuvastatin (NF) 20 MG TAB PO SCH (17:07)
--- NOTE | 2019-06-25 21:48 | DS ---
DISCHARGE SUMMARY: DATE OF ADMISSION: 06/18/19 DATE OF DISCHARGE: 06/25/19 FINAL DISCHARGE DIAGNOSES: 1. Sinus bradycardia with sinus pause, etiology multifactorial, probably sick sinus disease, iatrogenic due to metoprolol and Catapres versus autonomic dysfunction due to urinary retention. 2. Non-ST elevation status post cardiac cath with stent placement to his proximal of his free pedicle radial artery graft status post stenting of 90-95% stenosis. 3. End-stage renal disease, on dialysis. 4. Right shoulder pain, most likely rotator cuff and tendinitis. 5. Benign prostate hypertrophy with urinary retention. 6. Hypertension. 7. Urinary tract infection, final cultures pending. 8. History of diabetes. 9. Obstructive sleep apnea. HOSPITAL COURSE: The patient was seen on 06/19/19 in the emergency room and was admitted to the medical service after he presented for the right-sided arm pain and chest pain. The chest pain was described as substernal. In the emergency room, his EKG showed some minimal ST depression in the inferior leads V4 to V6 and he had a CT angiogram, which was negative for PE or dissection. No aortic aneurysm was noted. He was admitted to the medical service, and given his shoulder pain he was seen by Dr. Cano from Orthopedics who recommended physical therapy and was treated empirically with some Flexeril p.r.n. and some Tylenol with Codeine. During also his hospital course and his initial diagnostic workup, he did have troponin. When he presented, it was 0.09 and this has trended upwards and it peaked up to 0.95 on 06/18/19. He underwent cardiology evaluation. He was seen by Dr. Karen Patel on 06/18/19 and recommended to proceed with further cardiac workup with nuclear stress testing. He had a nuclear stress test on 06/19/19, which revealed a small area of ischemia in the inferior wall. This was followed by a cardiac cath on and he was found to have a stenosis 90-95% of his free pedicle of the radial artery graft by Dr. Hannon. However, during the hospital stay and he was seen by me as initial visit on 06/23/19, it was brought to my attention that he has been having sinus pause ranging from 2 to 3 seconds very frequently and this was correlated with his attempt to urinate. He had a bladder scan and was noted to have urinary retention greater than 500 cc and he was straight cath'd. Discussed the case with Dr. Hannon and reviewed his medication and it was determined to adjust his medication as follows: Switching his Brilinta to Plavix as it is known to cause some bradycardia; his metoprolol 37.5 mg at that time was held and his Catapres patch was tapered from 0.2 down to 0.1 and then finally discontinued because of persistent bradycardia. He remained additional 2 days on the tele floor with telemetry strip, and on 06/24/19, he finally had minimal to no sinus pauses off his cardiac meds, which included the metoprolol and Catapres, but he did develop SVT about 16 beats on the night of 06/24/19. When he was seen today by me, I did discuss the case with Cardiology, Dr. Beltre and in light of his SVT he recommended to resume his Toprol XL 25 mg daily, which I would do. I reviewed that with the patient. Again, I attempted to discuss with him the potential of having the Joe catheter until he sees his urologist; he declined. He opted to wait and to see Dr. Fleming because he consented for the Joe and the reasoning that he has been having urinary retention given his end-stage renal disease and on Lasix already, he still makes urine and he is retaining more than 500 cc documented twice that was resolved with a straight cath. Therefore, he again declined the chronic Joe catheter and his UA was tested. It came back positive for pyuria on his urine. His urine culture is pending. I elected to start him on cefazolin once a day given renal disease and final culture to be followed as an outpatient. With above findings at this time, I deemed the patient stable from my point of view until he is further risk stratified by Cardiology in regard to his tachybrady and whether or not he requires any further intervention. I will proceed with the recommendation from Cardiology and initiate his Toprol-XL 25. Titrate his blood pressure medication for tighter blood pressure control and will be released back home with the outpatient followup as outlined below. PHYSICAL EXAM: Vital Signs: Temperature 97.9, his pulse is ranging between 78 and 39, blood pressure 127/60, saturating 90%, respiratory rate 16. General: He is awake, alert, flat affect, no distress. Head and Neck: Normocephalic, atraumatic. Lungs: Good air flow bilaterally with no rhonchi and no rales. Extremities: He does have slight diminished abduction on the right shoulder below 90 degrees, no tenderness. No pedal edema. INPATIENT DIAGNOSTIC STUDIES/LAB DATA: Multiple CBC and chemistry, significant for chronic anemia. Chemistry: Troponin peaked at 0.95. It is 0.15 on . Urinalysis: 3+ leuk esterase, 3+ wbc's, multiple squamous and transitional epithelial cells along with 2+ bacteria. Imaging: CTA of the thorax on 06/18/19. Impression: No acute finding. No filling defect to suggest pulmonary embolism and no aortic aneurysm appreciated. Chest x-ray 06/18/19, no evidence of acute cardiopulmonary disease. Shoulder x-ray 06/18/19, osteoarthritic change of the glenohumeral and the acromioclavicular joint. Nuclear medicine on 06/19/19 shows small area of ischemia in the inferior wall, the left ventricular ejection fraction is calculated at 37%. Cardiovascular: Cardiac catheterization on 06/23/19, which revealed in-stent stenosis of the free pedicle radial artery graft posterior descending artery, which was stented. Microbiology: UA positive. Urine culture is pending, revealed Enterococcus faecalis. Sensitivity is pending as of 06/25/19 at 3 p.m. DISCHARGE MEDICATIONS: 1. Tylenol p.r.n. for pain. 2. Keflex 500 mg daily. 3. Amlodipine 10 mg in the morning and 5 mg at night as per home regimen. 4. Plavix 75 mg daily. 5. Colace 100 mg b.i.d. 6. Resume Proscar 5 mg at bedtime. 7. Lasix 40 mg b.i.d. 8. Hydralazine 25 mg t.i.d., continue. 9. Isosorbide 120 mg daily, continue. 10. Lisinopril 5 mg daily. 11. Magnesium 400 mg daily. 12. Minoxidil 2.5 b.i.d. 13. Pantoprazole 40 mg daily. 14. Zoloft 50 mg daily, continue. 15. Vitamin B complex daily. 16. Aspirin 81 mg daily. 17. Cephalexin 500 mg daily for 7 more days. 18. Vitamin D 2000 units daily. 19. Toprol-XL 25 mg daily. 20. Nitroglycerin p.r.n. 21. Crestor 40 mg at bedtime. 22. Terazosin 5 mg at bedtime. DISCHARGE INSTRUCTIONS: 1. Follow up with primary care Dr. Benjy Caban in 1 to 2 weeks. 2. Follow up with Dr. Karen Patel as scheduled on 06/30/19 at 2:40 p.m. 3. Follow up with Dr. Lg Beltre in 1 to 2 weeks. 4. Follow up with his urologist Dr. Jax Fleming in 1 to 2 weeks. 5. Referral for outpatient physical therapy was provided in his discharge for slight shoulder pain. Take all medications as prescribed. DISCHARGE CONDITION: Stable. DISCHARGE DISPOSITION: Home. [id number]/[facility] #: [id number]
[2019-06-26] MEDS ORDERED: Cephalexin CAP* 500 MG PO SCH (09:00)
[2019-06-26] MEDS ORDERED: Metoprolol Succinate XL TAB* 25 MG PO SCH ×2 (09:00)
== END 2019-06-25 20:00 | disposition home or self-care (01) | DRG 246 ==
LOC: ED 01:58 → MED 09:09 → OBSVTOIN 06-19 11:00 → MEDTELE 06-20 11:58 → ICU 06-22 10:49 → MEDTELE 06-23 13:50
PROVIDERS: ADMIT Internal Medicine; ATTEND Internal Medicine
PROC: 5A1D70Z Performance of Urinary Filtration, Intermittent, Less than 6 Hours Per Day (ICD-10-PCS; 2019-06-19)
PROC: B211YZZ Fluoroscopy of Multiple Coronary Arteries using Other Contrast (ICD-10-PCS; 2019-06-22)
PROC: B213YZZ Fluoroscopy of Multiple Coronary Artery Bypass Grafts using Other Contrast (ICD-10-PCS; 2019-06-22)
PROC: B218YZZ Fluoroscopy of Left Internal Mammary Bypass Graft using Other Contrast (ICD-10-PCS; 2019-06-22)
PROC: 027034Z Dilation of Coronary Artery, One Artery with Drug-eluting Intraluminal Device, Percutaneous Approach (ICD-10-PCS; principal; 2019-06-22 09:00)
DX: I21.4 Non-ST elevation (NSTEMI) myocardial infarction (principal); N18.6 End stage renal disease; I13.2 Hypertensive heart and chronic kidney disease with heart failure and with stage 5 chronic kidney disease, or end stage renal disease; N39.0 Urinary tract infection, site not specified; I47.1 Supraventricular tachycardia; I49.5 Sick sinus syndrome; I25.10 Atherosclerotic heart disease of native coronary artery without angina pectoris; N14.1 Nephropathy induced by other drugs, medicaments and biological substances; T50.8X5A Adverse effect of diagnostic agents, initial encounter; D63.1 Anemia in chronic kidney disease; G47.33 Obstructive sleep apnea (adult) (pediatric); E11.22 Type 2 diabetes mellitus with diabetic chronic kidney disease; I50.9 Heart failure, unspecified; E78.00 Pure hypercholesterolemia, unspecified; E11.51 Type 2 diabetes mellitus with diabetic peripheral angiopathy without gangrene; K21.9 Gastro-esophageal reflux disease without esophagitis; M19.042 Primary osteoarthritis, left hand; M19.041 Primary osteoarthritis, right hand; M19.012 Primary osteoarthritis, left shoulder; M19.011 Primary osteoarthritis, right shoulder; F41.9 Anxiety disorder, unspecified; F32.9 Major depressive disorder, single episode, unspecified; R94.39 Abnormal result of other cardiovascular function study; I44.0 Atrioventricular block, first degree; M75.101 Unspecified rotator cuff tear or rupture of right shoulder, not specified as traumatic; N40.1 Benign prostatic hyperplasia with lower urinary tract symptoms; R33.9 Retention of urine, unspecified; Y92.9 Unspecified place or not applicable; Z99.2 Dependence on renal dialysis; Z95.5 Presence of coronary angioplasty implant and graft; I25.2 Old myocardial infarction; I69.311 Memory deficit following cerebral infarction; Z88.1 Allergy status to other antibiotic agents; Z82.49 Family history of ischemic heart disease and other diseases of the circulatory system; Z83.3 Family history of diabetes mellitus; Z86.73 Personal history of transient ischemic attack (TIA), and cerebral infarction without residual deficits; Z85.828 Personal history of other malignant neoplasm of skin; Z72.89 Other problems related to lifestyle; Z95.1 Presence of aortocoronary bypass graft; Z79.02 Long term (current) use of antithrombotics/antiplatelets; Z79.82 Long term (current) use of aspirin
CPT/HCPCS: 36415; 71045; 71275; 78452; 80048; 80053; 80061; 81003; 81015; 82550; 82553; 83735; 83880; 84100; 84443; 84484; 85025; 85610; 85730; 86706; 87077; 87086; 87186; 87340; 90935; 93005; 93017; 93455; 99283; A9270-GY; A9502; C1725; C1760; C1876; C1884; C1887; C9600-RC; G0257; G0378; G8978-GP-CH; G8979-GP-CH; G8980-GP-CH; J0280; J0360; J0583; J1644; J2250; J2270; J2405; J2785; J3010; Q5106; Q9967

== ENCOUNTER 2019-06-28 23:18 | Inpatient (IN) | payer MEDICARE ==
[~2019-06-28 23:18] MED LIST changes: -Buffered Lidocaine 1% SYR 3ML* 3 ML/SYR SYRINGE INTRADERM ONE; +Heparin VIAL(*) 5000 UNITS/ML VIAL (FIVE THOUSAND) IV SCH; -Midazolam* 1 MG/ML 5 ML VIAL (5 MG) ONE; -fentaNYL* 50 MCG/ML 2 ML VIAL (100 MCG VIAL) ONE
[2019-06-28] MEDS ORDERED: Heparin DRIP 25,000 UNITS(*) 25,000 UNITS/500 ML BAG IV SCH (23:45)
[2019-06-28] MEDS ORDERED: Nitro 2% OINT* (Nitroglycerin) 1 INCH/PAK PAK TOPICAL ONE (23:46)
[2019-06-29] MEDS ORDERED: Ondansetron INJ* 2 MG/ML VIAL ONE (00:20)
[2019-06-29] MEDS: Morphine 4 MG/ML VIAL (1 ml) 4 MG/ML VIAL IV PRN ×2 (00:22→22:14)
[2019-06-29 00:26] LABS: ABS Basophils 0.1 10^3/ul (0-0.2); ABS Eosinophils 0.2 10^3/ul (0-0.6); ABS Monocytes 0.6 10^3/ul (0-0.8); ABS Neutrophils 7.2 10^3/ul (1.5-7.7); Eosinophil % 2.6 %; Hematocrit 29 % (42-52); Hemoglobin 10.1 g/dL (14.0-18.0); INR 0.95 (0.82-1.09); Lymphocyte % 11.4 %; Mean Corpuscular HGB Conc 34 g/dL (31-36); Mean Corpuscular Hemoglobin 29 pg (27-31); Mean Corpuscular Volume 85 fL (80-94); Mean Platelet Volume 7.5 fL (7.4-10.4); Nucleated Red Blood Cells % 0.1; Platelet Count 233 10^3/uL (150-450); Red Blood Count 3.48 10^6 /uL (4.18-5.48); Red Cell Distribution Width 15 % (10-15); White Blood Count 9.2 10^3/uL (3.5-10.8)
[2019-06-29 00:37] LABS: ALT 21 U/L (7-52); AST 19 U/L (13-39); Albumin 4.4 g/dL (3.2-5.2); Albumin/Globulin Ratio 1.5 (1-3); Alkaline Phosphatase 101 U/L (34-104); Anion Gap 14 mmol/L (2-11); BUN/Creatinine Ratio 9.1 (8-20); Blood Urea Nitrogen 55 mg/dL (6-24); CO2 Carbon Dioxide 22 mmol/L (22-32); Calcium 9.3 mg/dL (8.6-10.3); Chloride 98 mmol/L (101-111); EGFR African American 11.3 (>60); EGFR Non-African American 9.3 (>60); Globulin 2.9 g/dL (2-4); Glucose 143 mg/dL (70-100); Sodium 134 mmol/L (135-145); Total Protein 7.3 g/dL (6.4-8.9)
[2019-06-29 00:40] LABS: Troponin I 0.06 ng/mL (<0.04)
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
[2019-06-29 03:09] LABS: Troponin I 0.39 ng/mL (<0.04)
[2019-06-29] MEDS ORDERED: Nitroglycerin TAB 0.4 MG* 0.4 MG TAB SL PRN (05:39)
[2019-06-29] MEDS ORDERED: Albuterol HFA INHALER* 8 gm MDI INH PRN (05:39)
--- NOTE | 2019-06-29 07:49 | CONSULT ---
Subjective Date of Service: 06/29/19 Interval History: date of admission and consult 06/29/[address] Caban Service: Hospitalist CC: R sided chest, shoulder and arm pain Reason for consult: Acute [place] HPI "Harris" Walter is a 64 year old man with a Pmhx has below. He recently presented with a NSTEMI and had recurrent PCI to radial-graft PDA recurrent restenosis that was felt to be the culprit at the time. Due to asymptomatic bradycardia, brilinta was changed to plavix, was weaned off clonidine and beta- kedar dose was decreased. When he left the hospital Tuesday 06/26 he was feeling well and ambulating without symptoms. Patient tells me last night he had severe right sided chest discomfort like he was trying to "burp a baby" associated with right upper arm pain. This was in addition to his chronic musculoskeletal right shoulder pain. He ruled in for ACS with EKG changes and a rise in troponin. He has received medical therapy which included IV morphine and is currently asymptomatic. He is clearly under the effect of narcotics but is otherwise close to his baseline cognitive status. Pmhx/pshx - Urinary retention, chauhan currently in place. 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 Byers through AV fistula - GIB 02/2018 while taking NSAIDS, plavix and asa 325 mg po bid.. No transfusion , no endoscopy. Had significant bradycardia in setting of K 6.2" - HTN - Dyslipidemia - sleep apnea - CAD s/p CABG 2002, [place], PCI - Patent foramen Ovale noted and closed percutaneously - Carotid Disease - Carotid stent 2009 Allergies: Bactrim 02/16/14 Latex 08/11/18 allergy list reviewed on 03/04/2019 FH: non contributory. Father: Killed in accident. Mother: Dementia. Siblings:6, 2 brothers w/heart issues. SH: Marital: .Lives With: .Occupation: Smoking: Patient has never smoked.Cigarette Use: Never Smoked Cigarettes.Alcohol: Occasionally consumes alcohol.Drug Use: Denies Drug Use. Medications Active Medications: Albuterol (Ventolin Hfa Inhaler*) 1 puff INH BID PRN PRN Reason: WHEEZING Amlodipine Besylate (Norvasc Tab*) 5 mg PO BID CHON Aspirin (Aspirin Tab*) 81 mg PO DAILY [facility] Atorvastatin Calcium (Lipitor*) 80 mg PO BEDTIME [facility] Buspirone HCl (Buspar Tab*) 10 mg PO BID [facility] Cholecalciferol (Vitamin D Tab*) 2,000 units PO QAM [facility] Clopidogrel Bisulfate (Plavix Tab*) 75 mg PO DAILY [facility] Docusate Sodium (Colace Cap*) 100 mg PO BID PRN PRN Reason: CONSTIPATION Famotidine (Pepcid Tab*) 20 mg PO EVERY OTHER DAY [facility] Finasteride (Proscar Tab*) 5 mg PO QPM [facility] Fish Oil (Fish Oil (Nf)) 1,000 mg PO TID [facility] Furosemide (Lasix Tab*) 40 mg PO BID [facility] Heparin Sodium (Porcine) (Heparin Vial(*)) 0 units IV .PER PROTOCOL [facility] Last Admin: 06/29/19 05:22 Dose: 5,000 units Hydralazine HCl (Apresoline Tab*) 25 mg PO TID [facility] Heparin Sodium/Dextrose (Heparin Drip 25,000 Units(*)) 25,000 units in 500 mls @ 0 mls/hr IV PER RATE [facility]; Protocol Last Admin: 06/29/19 05:23 Dose: 1,000 mls/hr Isosorbide Mononitrate (Imdur Er Tab*) 120 mg PO BID [facility] Lisinopril (Prinivil Tab*) 5 mg PO QAM [facility] Magnesium Oxide (Magox 400 Tab*) 400 mg PO QAM [facility] Metoprolol Succinate (Toprol Xl Tab*) 12.5 mg PO DAILY [facility] Minoxidil (Loniten Tab*) 2.5 mg PO BID [facility] Morphine Sulfate (Morphine 4 Mg/Ml Vial (1 Ml)) 4 mg IV Q1H PRN PRN Reason: PAIN Stop: 06/30/19 00:10 Last Admin: 06/29/19 00:22 Dose: 4 mg Nitroglycerin (Nitroglycerin Tab 0.4 Mg*) 0.4 mg SL Q5M PRN PRN Reason: ANGINA Non-Formulary Medication (Vit B Complx C/Folic Acid/Zinc [Dialyvite 800-Zinc 50 Mg Tab]) 1 tab PO QAM [facility] Non-Formulary Medication (Vitamin C Tab*) 1,000 mg PO DAILY [facility] Sertraline HCl (Zoloft*) 50 mg PO QAM [facility] Terazosin HCl (Hytrin Cap*) 5 mg PO BEDTIME [facility] Vitamin B Complex/Vitamin E (B Complex-50*) [facility] [place] Medications: Finasteride TAB* [Proscar TAB*] 5 mg PO QPM 08/26/14 [History Confirmed 06/29/19 ] Nitroglycerin TAB 0.4 MG* 0.4 mg SL Q5M PRN 11/11/15 [History Confirmed 06/29/19 ] amLODIPine TAB* [Norvasc 5 mg TAB*] 5 mg PO BID 02/22/16 [History Confirmed 04/12] Isosorbide Mononitrate ER TAB* [Imdur ER TAB*] 120 mg PO BID 01/25/17 [History Confirmed 06/29/19] Vitamin B Complex TAB* [B Complex-50*] 1 tab PO QAM 09/02/17 [History Confirmed 06/29/19] Cholecalciferol (Vitamin D3) [Vitamin D3] 2,000 unit PO QAM 03/10/18 [History Confirmed 06/29/19] Magnesium Oxide TAB* [MagOx 400 TAB*] 400 mg PO QAM 03/10/18 [History Confirmed 06/29/19] Sertraline HCl [Zoloft] 50 mg PO QAM 12/16/18 [History Confirmed 06/29/19] Terazosin CAP* [Hytrin CAP 5 MG*] 5 mg PO BEDTIME 12/16/18 [History Confirmed ] MinoXIDil TAB* [Loniten TAB*] 2.5 mg PO BID 30 Days #60 tab 01/24/19 [Rx Confirmed 06/29/19] Furosemide TAB* [Lasix TAB*] 40 mg PO BID 30 Days #60 tab 01/30/19 [Rx Confirmed 06/29/19] Lisinopril TAB* [Prinivil TAB 5 MG*] 5 mg PO QAM 02/27/19 [History Confirmed 04/12] Vit B Complx C/Folic Acid/Zinc [Dialyvite 800-Zinc 50 mg Tab] 1 tab PO QAM 02/27 [History Confirmed 06/29/19] Acetaminophen TAB* [Tylenol TAB*] 650 mg PO Q4H PRN tab 06/25/19 [Rx Confirmed 06/29/19] Clopidogrel TAB* [Plavix TAB*] 75 mg PO DAILY 30 Days #30 tab 06/25/19 [Rx Confirmed 06/29/19] Docusate CAP* [Colace Cap*] 100 mg PO BID PRN cap 06/25/19 [Rx Confirmed ] Rosuvastatin Calcium [Crestor] 40 mg PO BEDTIME 30 Days #30 tablet 06/25/19 [Rx Confirmed 06/29/19] hydrALAZINE TAB* [Apresoline TAB*] 25 mg PO TID 30 Days #90 tab 06/25/19 [Rx Confirmed 06/29/19] Ammonium Lactate 12% 12 % TRANSDERM DAILY PRN 06/29/19 [History Confirmed ] Buspirone HCl 10 mg PO BID 06/29/19 [History Confirmed 06/29/19] Metoprolol Succinate 12.5 mg PO DAILY 06/29/19 [History Confirmed 06/29/19] P[place]bury 3 1,000 mg Softgel 1,080 mg PO TID 06/29/19 [History Confirmed 06/29/19] Pepcid 20 MG TAB* 20 mg PO EVERY OTHER DAY 06/29/19 [History Confirmed 06/29/19] Ventolin HFA Inhaler* 90 - 108 mcg INH BID PRN 06/29/19 [History Confirmed 06/29] Vitamin C TAB* 1,000 mg PO DAILY 06/29/19 [History Confirmed 06/29/19] aspirin Review of Systems - Measurements Intake and Output: Intake and Output Last 24 Hours 06/27/19 06/28/19 06/29/19 06/30/19 06:59 06:59 06:59 06:59 Weight 221 lb - Review of Systems Constitutional Symptoms: Positive: Weakness, Fatigue Negative: Weight Gain, Weight Loss, Fever, Night Sweats Dermatology: Negative: Rash, Skin Lesions HEENT: Negative: Change in Hearing, Vertigo Eyes: Negative: Change in Vision, Double Vision Thyroid: Negative: Weight Loss, Weight Gain Pulmonary: Positive: Exercise Intolerance Negative: Respiratory Distress Cardiology: Positive: Chest Pain Negative: Faintness, Syncope, Paroxysmal Nocturnal Dyspnea, Orthopnea Gastroenterology: Negative: Blood in Stools, Change in Bowel Habits, Haematemesis Genital - Urinary: Negative: Dysuria, Hematuria Musculoskeletal: Positive: Joint Pain Negative: Joint Stiffness Endocrinology: Positive: Obesity Negative: Polydipsia, Polyuria Hematologic/Lymphatic: Positive: Use of Antiplatelet Drugs Negative: Use of Anticoagulant Neurology: Negative: Hx of Stroke\\TIA, Hx Seizures Psychiatry: Negative: Unusual Anxiety, Suicidal Ideation Allergic/Immunologic: Negative: Hx HIV, Immunocompromise Review of Systems Statement: All other review of systems negative, unless stated above. Objective Vital Signs: Temp Pulse Resp BP Pulse Ox 98 F 71 18 176/78 93 06/28/19 23:40 06/29/19 07:05 06/29/19 07:05 06/29/19 07:05 06/29/19 07:05 Appearance: chronically ill appearing but not toxic Ears/Nose/Mouth/Throat: Clear Oropharnyx, Mucous Membranes Moist Neck: NL Appearance and Movements; NL JVP, Trachea Midline Respiratory: Symmetrical Chest Expansion and Respiratory Effort, Clear to Auscultation Cardiovascular: RRR, - - no significant muirmur Abdominal: NL Sounds; No Tenderness; No Distention Extremities: No Clubbing, Cyanosis, - - right AV fistula Skin: No Rash or Ulcers Neurological: Alert and Oriented x 3 Laboratory Results: 06/29/19 00:14 06/29/19 00:14 INR (Anticoag Therapy) 0.95 (0.82-1.09) 06/29/19 00:14 Total Bilirubin 0.50 mg/dL (0.2-1.0) 06/29/19 00:14 AST 19 U/L (13-39) 06/29/19 00:14 ALT 21 U/L (7-52) 06/29/19 00:14 Alkaline Phosphatase 101 U/L (34-104) 06/29/19 00:14 Total Protein 7.3 g/dL (6.4-8.9) 06/29/19 00:14 Albumin 4.4 g/dL (3.2-5.2) 06/29/19 00:14 Globulin 2.9 g/dL (2-4) 06/29/19 00:14 Albumin/Globulin Ratio 1.5 (1-3) 06/29/19 00:14 06/29/19 06/29/19 06/29/19 00:14 02:39 05:45 Troponin I 0.06 H* 0.39 H* 1.60 H* Diagnostic Imaging: CTA head and neck 01/2016: Chronic occlusion of L vertebral artery Moderate to high grade R MCA stenosis Patent stents in L common and internal carotid arteries and within L MCA Moderate proximal R TRAPEZE ARTIST stenosis Mild-moderate distal basilar artery narrowing MRI brain 01/2016: Small areas of acute ischemia within R lentiform nucleus and R periventricular white maller Acute small area of posterior lilia 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 Septal occlusion device noted. Mild/mod mitral regurgitation.Mild tricuspid regurgitation. No pulmonary hypertension. Holter Monitor - (02/01/2015) Underlying rhythm NSR with average HR 58bpm, min HR 43bpm, max HR 100bpm. Ventricular ectopic activity mild to moderate, PVC' s with bigeminal rhythm noted, no V-Tach. Supraventricular ectopic activity mild to moderate. Dc - (03/31/2010) Transesophageal - LV function normal EF- 65%. PFO + ASA with predominantly right to left flow Atheroma noted in ascending and descending aorta. Cardiac Procedures: Cardiac Catheterization - (02/16/2019) TANKMAN of pLAD with regrograde filling of patent martinez to a small diagonal and obstructive LAD proximal, Lcx lesion up to 60% and collaterals to RCA. RCA known occluded from prior angiogram, free pedicle radial artery graft to PDA critical 90% lesion prior to previous stent placement and also 80% ISR of prior graft stent s/p PCI/MARGARET x 2 to both graft lesions Cardiac Catheterization - (10/25/2014) 40-45% distal left main lesion. 90% ostial LAD pass this point, there was some lucency suggesting possible thrombus. The vessel then tapered with competitive flow seen. Thin D1 to small for intervention. The MARTINEZ graft to the left anterior descending artery was widely patent with a good anastomosis with diffuse disease seen in the [place] LAD distal to the insertion point with narrowing as much as 70%. Retrograde filling back to a more proximal posteriorly directed diagonal branch was noted with as much as a 75-80% obstruction seen Lcx high trifurcation marginal branch which had 75-80% proximal obstruction too small for intervention. Past the first trifurcation marginal branch, the circumflex had an area of narrowing that appeared to be 45-50% followed by a 60% mid lesion in the proximal portion of a bifurcating obtuse marginal branch. TANKMAN of pRCA collateralized via Lcx and septal perforators. Radial artery graft to the posterior descending artery had a proximal 65-70% lesion followed by a 99% lesion seen in the mid-portion. This vessel underwent intervention with balloon angioplasty and placement of a 2.25 x 24 millimeter long Promus Premier drug eluting stent in the midportion and the placement of a 2.5 x 16 millimeter long Promus Premier drug eluting stent in the proximal portion post-dilated to 2.85 millimeters in the proximal portion. Coronary Bypass Grafting - (07/05/2003) MARTINEZ to LAD, Left radial to PDA of RCA. The PLVB and Ramus was felt to be too small for bypass by the surgeon. Cardiac Catheterization - (07/01/2003) 90%proximal LAD, 80 % mid LAD, 50 % mid circ, 70% proximal stenosis in moderate sized Ramus Intermedius. RCA with 30 % proximal, 50 % mid, and 80% distal invovling ostium of PDA and ostium of PLVB. LVEF 66 % with trace MR on Vgram. 06/29/[address] Hannon RFA RESULTS: CORONARY ARTERIOGRAPHY: A. Left coronary artery: 1. Left main - widely patent. 2. Left anterior descending artery - totally occluded for a short distance from its ostium. There was a posteriorly directed first diagonal branch, small in caliber, with diffuse disease with an area of 80% in the proximal portion of the diagonal branch and a 75% to 80% ostial narrowing. 3. Circumflex artery - a nondominant vessel supplying a thin first obtuse marginal branch followed by a second thin obtuse marginal branch. The artery then had a third obtuse marginal branch, which bifurcated. There was diffuse disease noted in the proximal portion with a stenosis of 65% seen followed by an area of 65% to 70%. Of note, there was collateralization seen to the distal right coronary artery, posterior left ventricular branches and body of the right coronary artery. B. Right coronary artery - known to be totally occluded from prior cardiac catheterizations. MARTINEZ GRAFT ARTERIOGRAPHY: - the MARTINEZ graft was widely patent with good anastomosis to a very thin left anterior descending artery with retrograde filling to a more proximal posteriorly directed diagonal branch. In general, the [place] vessels were extremely small in caliber. FREE PEDICLE RADIAL ARTERIOGRAPHY TO POSTERIOR DESCENDING ARTERY: The bypass was noted to have significant in-stent restenosis in the proximal portion with a stenosis as much as 85% to 90% seen in the main body of the prior stented area. Of note, there were 2 stents within this area already placed. More proximally, there was a narrowing of 65% within the stent area. The rest of the bypass showed no significant in-stent restenosis into the area of prior stent placement in the mid- to-distal portion. It attached to the posterior descending artery, which bifurcated. There was a 50% lesion seen within the posterior descending artery in its [id number] portion. INTERVENTION INTO PROXIMAL PORTION OF FREE PEDICLE RADIAL ARTERY GRAFT TO POSTERIOR DESCENDING ARTERY:Successful reduction of critical 90% to 95% stenosis and 65% stenosis using balloon angioplasty and placement of a 3.0 x 20 mm long Synergy drug- eluting stent post dilated to its highest 3.25 mm with JAE-3 flow and 10% residual stenosis. EKG Data: ekg 06/28/2019 1: NSR, ivcd, ischemic ST depression inferior and leads v4-v6 ekg 2: similar except ST cahnges are more downsloping and prominent ekg 3 06/29/2019: NSR, improvement of ST depression but has not returned to baseline from 06/25/2019 Assessment/Plan Patient admitted with NTEMI, now pain free after IV narcotics - continue medical management as ordered except increase norvasc to 10 mg po bid which he had been on previously without issue. - given prior asymptomatic sinus node disease would not increase beta-kedar for now - Ok for HD today as long as asymptomatic - Discussed with Dr. Patel and tentative plan for cardiac catheterization at some point this admission, leave NPO after breakfast today
--- NOTE | 2019-06-29 08:35 | HP ---
CC: Dr. Caban; Dr. Aly Byers; Dr. Jovanny Perez; Dr. Lg Beltre from Cardiology; Dr. Janette goetz, Urology HISTORY AND PHYSICAL: DATE OF ADMISSION: 06/29/19 PROVIDER: Liu Meraz MD CHIEF COMPLAINT: Right arm pain and chest pain. HISTORY OF PRESENT ILLNESS: This is 64-year-old male with past medical history of end-stage renal di sease; coronary artery disease, status post bypass grafting and 2 stens placed this January of 2019 and another stent placed last week, was discharged home, came back in with right-sided chest pain with s imilar in nature to about a week ago, which triggered him to come to the ER. He also had some minima l shortness of breath accompanying by his chest pain and initially he thought it was just gas pain an d he needed to burp, but given the fact that it did not improve and was worsening, he decided to come to the ER for further evaluation. He again denies any other nausea, vomiting, or any abdominal pain . PAST MEDICAL HISTORY: 1. End-stage renal disease related to a contrast nephropathy, on dialysis, Saturday, Saturday, Saturday , but he does generate urine and had urinary retention, for which he has a chronic Joe catheter fawn racquel during last admission about a week ago. 2. Coronary disease, status post coronary artery bypass graft and 2 stents in January 2019 with in-thiago nt stenosis with another stent placed last week. 3. History of hypertension. 4. History of stroke with some memory impairment, states that his short-term memory is very bad. 5. History of PFO, status post closure. 6. History of diabetes. 7. History of dyslipidemia. 8. History of hypertension with multiple medications. PAST SURGICAL HISTORY: 1. AV fistula placement on the right arm for dialysis. 2. Coronary artery bypass grafting, multiple stents. 3. PFO closure. ALLERGIES: The patient is documented allergic to BACTRIM. FAMILY HISTORY: Mother with a history of hypertension and diabetes. SOCIAL HISTORY: He lives at home with his , who is his healthcare proxy. He is on disability. He has no history of smoking, rarely uses alcohol. Denies any drug use. 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 REVIEW OF SYSTEMS: A 14-point review of systems did not reveal any new information other than what i s stated in the HPI. PHYSICAL EXAMINATION GENERAL: The patient is alert and oriented x3, did not appear to be in any acute respiratory distres s. VITAL SIGNS: In the ER, temperature was 98 degree Fahrenheit, BP was noted to be 157/77, heart rate 73, respirations 17, saturating 97% on 2 L nasal cannula. HEAD AND NECK: Atraumatic, normocephalic. Pupils bilaterally reactive to light and accommodation. Neck supple. No jugular venous distention. HEART: S1 and S2. Regular rate and rhythm. LUNGS: Clear to auscultation bilaterally. No wheezes, rhonchi, or rales. ABDOMEN: Soft, nontender, nondistended. EXTREMITIES: The patient had fistula noted on the right forearm, but otherwise no cyanosis or clubbi ng. A Joe was present on him with over a liter of clear yellow urine. DIAGNOSTIC STUDIES/LAB DATA: CBC was unremarkable except for mild anemia with hemoglobin of 10.1, h ematocrit of 29. Coagulation profile unremarkable. Comprehensive metabolic panel was showing mild hy ponatremia. Creatinine elevated from his baseline at 6.04, troponin initially was elevated at 0.06, which further increased to 0.39. EKG did not reveal any ST elevation. There was some ST segment depression in V5 and V6. IMPRESSION: This is a 64-year-old male with coronary artery disease with multiple interventions in t he past and most recent stent placed about a week ago comes in again with chest pain and noted to hav e minimally elevated troponin. ASSESSMENT AND PLAN: 1. Chest pain likely secondary to a [id number] myocardial infarction. We will start the patie nt on the home dose of aspirin and Plavix along with statin and the patient is already started on hep mouna, which we will continue and monitor the patient on telemetry. We will consult Cardiology to david suttonate the patient and manage the patient further. 2. End-stage renal disease, on hemodialysis. We will consult Dr. Byers regarding dialysis during h ospital stay. 3. History of urinary retention with chronic Joe. We will consult Dr. Fleming as the patient codi kraft was requesting that he had an appointment with him and he wanted to see him and thinks that the Joe he currently has is the wrong Joe.. 4. History of hypertension, restart home medications. 5. History of dyslipidemia, restart home statins. 6. DVT prophylaxis. The patient already on heparin drip. [id number]/[facility] [place] #: [id number]
[2019-06-29] MEDS: amLODIPine TAB* 5 MG PO SCH ×2 (08:58→21:10)
[2019-06-29] MEDS: CMC: OMEGA-3 FATTY ACIDS (NF) 1,000 MG CAP PO SCH ×3 (08:58→21:11)
[2019-06-29] MEDS: Aspirin 81 mg CHEW TAB* 81 MG TAB.CHEW PO SCH (08:59)
[2019-06-29] MEDS: Ascorbic Acid TAB* 500 MG PO SCH (08:59)
[2019-06-29] MEDS: Vitamin B Complex TAB PO SCH (08:59)
[2019-06-29] MEDS ORDERED: Aspirin TAB* 325 MG PO SCH (09:00)
[2019-06-29] MEDS: Metoprolol Succinate XL TAB* 25 MG PO SCH (09:00)
[2019-06-29] MEDS ORDERED: [UNRECOGNIZED DRUG - OTHER] PO SCH (09:00)
[2019-06-29] MEDS ORDERED: FOLIC ACID PO SCH (09:00)
[2019-06-29] MEDS ORDERED: ZINC PO SCH (09:00)
[2019-06-29] MEDS ORDERED: VIT B COMPLX C PO SCH (09:00)
[2019-06-29] MEDS ORDERED: amLODIPine TAB* 5 MG PO SCH (09:00)
[2019-06-29] MEDS: Clopidogrel TAB* 75 MG PO SCH (09:00)
[2019-06-29] MEDS ORDERED: Lisinopril TAB* 5 MG PO SCH (09:00)
[2019-06-29] MEDS: Docusate CAP* 100 MG PO PRN (09:00)
[2019-06-29] MEDS: Cholecalciferol TAB* 1000 UNITS PO SCH (09:00)
[2019-06-29] MEDS: busPIRone TAB* 10 MG PO SCH ×2 (09:01→21:10)
[2019-06-29] MEDS: Magnesium Oxide TAB* 400 MG PO SCH (09:01)
[2019-06-29] MEDS: Isosorbide Mononitrate ER TAB* 60 MG PO SCH ×2 (09:01→21:10)
[2019-06-29] MEDS: Famotidine TAB* 20 MG PO SCH (09:02)
[2019-06-29] MEDS: Furosemide TAB* 40 MG PO SCH ×2 (09:02→21:11)
[2019-06-29] MEDS: hydrALAZINE TAB* 25 MG PO SCH ×3 (09:02→21:10)
[2019-06-29] MEDS: Sertraline* 50 MG TAB PO SCH (09:02)
[2019-06-29] MEDS: MinoXIDil TAB* 2.5 MG TAB PO SCH ×2 (09:03→21:11)
[2019-06-29 10:13] LABS: Calcium 9.2 mg/dL (8.6-10.3); EGFR African American 10.9 (>60); Potassium 4.2 mmol/L (3.5-5.0)
[2019-06-29 10:17] LABS: Troponin I 2.23 ng/mL (<0.04)
[2019-06-29] MEDS ORDERED: NS 0.9% 1000 ML** 1,000 ML IV SCH ×2 (11:45→15:30)
[2019-06-29 11:47] LABS: ABS Basophils 0.1 10^3/ul (0-0.2); ABS Eosinophils 0.2 10^3/ul (0-0.6); ABS Lymphocytes 1.4 10^3/ul (1.0-4.8); ABS Monocytes 0.6 10^3/ul (0-0.8); ABS Neutrophils 6.2 10^3/ul (1.5-7.7); Eosinophil % 2.7 %; Hematocrit 30 % (42-52); Hemoglobin 10.1 g/dL (14.0-18.0); Lymphocyte % 16.6 %; Mean Corpuscular HGB Conc 34 g/dL (31-36); Mean Corpuscular Hemoglobin 29 pg (27-31); Mean Corpuscular Volume 86 fL (80-94); Mean Platelet Volume 7.2 fL (7.4-10.4); Nucleated Red Blood Cells % 0.1; Platelet Count 227 10^3/uL (150-450); Red Blood Count 3.45 10^6 /uL (4.18-5.48); Red Cell Distribution Width 15 % (10-15); White Blood Count 8.4 10^3/uL (3.5-10.8)
[2019-06-29 12:03] LABS: Troponin I 2.92 ng/mL (<0.04)
[2019-06-29] MEDS ORDERED: Lidocaine 1% INJ* 10 MG/ML 30 ML SDV ONE (12:30)
[2019-06-29] MEDS ORDERED: Heparin 2 UNITS/ML IVPREMIX* 3,000 UNIT/1,500 ML BAG IV ONE (12:30)
[2019-06-29] MEDS ORDERED: Iodixanol 320 (CONTRAST) 100 ML SDV ONE ×3 (12:30→13:53)
[2019-06-29] MEDS ORDERED: Midazolam* 1 MG/ML 5 ML VIAL (5 MG) ONE (12:32)
[2019-06-29] MEDS ORDERED: fentaNYL* 50 MCG/ML 2 ML VIAL (100 MCG VIAL) ONE ×2 (12:32→14:52)
[2019-06-29] MEDS ORDERED: Heparin(*) 1000 UNIT/ML 10 ML VIAL CATH LAB IV ONE ×2 (12:56→13:24)
[2019-06-29] MEDS ORDERED: nitroGLYCERIN DRIP* 25,000 MCG/250 ML BTL ONE (12:59)
[2019-06-29] MEDS ORDERED: niCARdipine 0.1MG/ML 200 ML IVPREMIX IV ONE (13:33)
--- NOTE | 2019-06-29 15:31 | PN ---
<Lilly Sheriff - Last Filed: 06/29/19 15:25> Subjective Date of Service: 06/29/19 Interval History: Patient transferred up from ED this morning. He had no more chest pain. Noted Lab trop uptrending 0.39->1.60->2.92, ECG ST 06/29/2019 ST depression in V4- 6 improving Objective Active Medications: Albuterol (Ventolin Hfa Inhaler*) 1 puff INH BID PRN PRN Reason: WHEEZING Amlodipine Besylate (Norvasc Tab*) 10 mg PO BID [facility] Last Admin: 06/29/19 08:58 Dose: 10 mg Ascorbic Acid (Vitamin C Tab*) 1,000 mg PO DAILY [facility] Last Admin: 06/29/19 08:59 Dose: 1,000 mg Aspirin (Aspirin 81 Mg Chew Tab*) 81 mg PO DAILY [facility] Last Admin: 06/29/19 08:59 Dose: 81 mg Atorvastatin Calcium (Lipitor*) 80 mg PO BEDTIME [facility] Buspirone HCl (Buspar Tab*) 10 mg PO BID [facility] Last Admin: 06/29/19 09:01 Dose: 10 mg Cholecalciferol (Vitamin D Tab*) 2,000 units PO QAM [facility] Last Admin: 06/29/19 09:00 Dose: 2,000 units Clopidogrel Bisulfate (Plavix Tab*) 75 mg PO DAILY [facility] Last Admin: 06/29/19 09:00 Dose: 75 mg Docusate Sodium (Colace Cap*) 100 mg PO BID PRN PRN Reason: CONSTIPATION Last Admin: 06/29/19 09:00 Dose: 100 mg Famotidine (Pepcid Tab*) 20 mg PO EVERY OTHER DAY [facility] Last Admin: 06/29/19 09:02 Dose: 20 mg Finasteride (Proscar Tab*) 5 mg PO QPM [facility] Fish Oil (Fish Oil (Nf)) 1,000 mg PO TID [facility] Last Admin: 06/29/19 08:58 Dose: 1,000 mg Furosemide (Lasix Tab*) 40 mg PO BID [facility] Last Admin: 06/29/19 09:02 Dose: 40 mg Heparin Sodium (Porcine) (Heparin Vial(*)) 0 units IV .PER PROTOCOL [facility] Last Admin: 06/29/19 05:22 Dose: 4,000 units Hydralazine HCl (Apresoline Tab*) 25 mg PO TID [facility] Last Admin: 06/29/19 09:02 Dose: 25 mg Sodium Chloride (Ns 0.9% 1000 Ml) 1,000 mls @ 25 mls/hr IV PER RATE [facility] Sodium Chloride (Ns 0.9% 1000 Ml) 1,000 mls @ 25 mls/hr IV .per rate [facility] Stop: 06/29/19 19:29 Nicardipine/Sodium Chloride (Cardene 0.1mg/Ml Ivpremix*) 20 mg in 200 mls @ 80 mls/hr IV .(as Initial Rate) [facility] Isosorbide Mononitrate (Imdur Er Tab*) 120 mg PO BID [facility] Last Admin: 06/29/19 09:01 Dose: 120 mg Lisinopril (Prinivil Tab*) 10 mg PO QAM [facility] Magnesium Oxide (Magox 400 Tab*) 400 mg PO QAM [facility] Last Admin: 06/29/19 09:01 Dose: 400 mg Metoprolol Succinate (Toprol Xl Tab*) 12.5 mg PO DAILY [facility] Last Admin: 06/29/19 09:00 Dose: 12.5 mg Minoxidil (Loniten Tab*) 2.5 mg PO BID [facility] Last Admin: 06/29/19 09:03 Dose: 2.5 mg Morphine Sulfate (Morphine 4 Mg/Ml Vial (1 Ml)) 4 mg IV Q1H PRN PRN Reason: PAIN Stop: 06/30/19 00:10 Last Admin: 06/29/19 00:22 Dose: 4 mg Nitroglycerin (Nitroglycerin Tab 0.4 Mg*) 0.4 mg SL Q5M PRN PRN Reason: ANGINA Sertraline HCl (Zoloft*) 50 mg PO QAM [facility] Last Admin: 06/29/19 09:02 Dose: 50 mg Terazosin HCl (Hytrin Cap*) 5 mg PO BEDTIME [facility] Vitamin B Complex/Vitamin E (B Complex-50*) 1 tab PO QAM [facility] Last Admin: 06/29/19 08:59 Dose: 1 tab Vital Signs - 8 hr 06/29/19 06/29/19 08:07 11:15 Temperature 98.2 F 97.4 F Pulse Rate 94 62 Respiratory 16 16 Rate Blood Pressure 176/101 157/62 (mmHg) O2 Sat by Pulse 95 90 Oximetry Oxygen Devices in Use Now: None Exam: Sleeping soundly Unable to perform physical exam Result Diagrams: 06/29/19 11:28 06/29/19 08:54 Additional Lab and Data: Lab Results 06/29/19 06/29/19 06/29/19 Range/Units 00:14 00:14 00:14 WBC 9.2 (3.5-10.8) 10^3/uL RBC 3.48 L (4.18-5.48) 10^6 /uL Hgb 10.1 L (14.0-18.0) g/dL Hct 29 L (42-52) % MCV 85 (80-94) fL MCH 29 (27-31) pg MCHC 34 (31-36) g/dL RDW 15 (10-15) % Plt Count 233 (150-450) 10^3/uL MPV 7.5 (7.4-10.4) fL Neut % (Auto) 78.6 % Lymph % (Auto) 11.4 % Cocke % (Auto) 6.7 % Eos % (Auto) 2.6 % Baso % (Auto) 0.7 % Absolute Neuts (auto) 7.2 (1.5-7.7) 10^3/ul Absolute Lymphs (auto) 1.0 (1.0-4.8) 10^3/ul Absolute Monos (auto) 0.6 (0-0.8) 10^3/ul Absolute Eos (auto) 0.2 (0-0.6) 10^3/ul Absolute Basos (auto) 0.1 (0-0.2) 10^3/ul Absolute Nucleated RBC 0.0 10^3/ul Nucleated RBC % 0.1 INR (Anticoag Therapy) 0.95 (0.82-1.09) Sodium 134 L (135-145) mmol/L Potassium 4.0 (3.5-5.0) mmol/L Chloride 98 L (101-111) mmol/L Carbon Dioxide 22 (22-32) mmol/L Anion Gap 14 H (2-11) mmol/L BUN 55 H (6-24) mg/dL Creatinine 6.06 H (0.67-1.17) mg/dL Est GFR ( Amer) 11.3 (>60) Est GFR (Non-Af Amer) 9.3 (>60) BUN/Creatinine Ratio 9.1 (8-20) Glucose 143 H (70-100) mg/dL Calcium 9.3 (8.6-10.3) mg/dL Total Bilirubin 0.50 (0.2-1.0) mg/dL AST 19 (13-39) U/L ALT 21 (7-52) U/L Alkaline Phosphatase 101 (34-104) U/L Troponin I 0.06 H* (<0.04) ng/mL Total Protein 7.3 (6.4-8.9) g/dL Albumin 4.4 (3.2-5.2) g/dL Globulin 2.9 (2-4) g/dL Albumin/Globulin Ratio 1.5 (1-3) Assess/Plan/Problems-Billing Assessment: - Patient Problems (1) ACS (acute coronary syndrome) Current Visit: Yes Status: Acute Code(s): I24.9 - ACUTE ISCHEMIC HEART DISEASE, UNSPECIFIED SNOMED Code(s): 450690545 Comment: concern of ACS in view of elevating Trop and ECG ST-T changes cardiology consulted, waiting 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 swim coach opinion continue aspirin and palvix (2) Diabetes Current Visit: No Status: Acute Code(s): E11.9 - TYPE 2 DIABETES MELLITUS WITHOUT COMPLICATIONS SNOMED Code(s): 29730519 Comment: Lispro started (3) ESRD (end stage renal disease) Current Visit: No Status: Acute Code(s): N18.6 - END STAGE RENAL DISEASE SNOMED Code(s): 55481798 Comment: on HD- MWF dialysis today after cath (4) Full code status Current Visit: No Status: Acute Onset Date: 02/01/15 Code(s): Z78.9 - OTHER SPECIFIED HEALTH STATUS SNOMED Code(s): 598543116 (5) HTN (hypertension) Current Visit: No Status: Acute Code(s): I10 - ESSENTIAL (PRIMARY) HYPERTENSION SNOMED Code(s): 06353775 Comment: - Mionoxidil, metoprolol, nitrate, lisinopril dose increased to 10mg , and clonidine patch (6) Dyslipidemia Current Visit: No Status: Chronic Code(s): E78.5 - HYPERLIPIDEMIA, UNSPECIFIED SNOMED Code(s): 866332580 Comment: - Continue lipitor 40 mg HS (7) PFO (patent foramen ovale) Current Visit: No Status: Chronic Code(s): Q21.1 - ATRIAL SEPTAL DEFECT SNOMED Code(s): 917303175 (8) DVT prophylaxis Current Visit: Yes Status: Acute Onset Date: 02/01/15 Code(s): TQL3800 - SNOMED Code(s): 838542570 Comment: heparin drip for now Status and Disposition: Still inpatient. trace intervential caridologist. Attestation Documenting Resident: Lilly Sheriff Supervising Physician: Ashley Bunn Attestation: This service has been performed in part by a resident under the direction of a teaching physician.I, Ashley Bunn, performed the service, or was physically present during the critical, or cameron portions of the service, furnished by the resident. I participated in the management of the patient. <Ashley Bunn - Last Filed: 06/29/19 17:42> Objective Active Medications: Albuterol (Ventolin Hfa Inhaler*) 1 puff INH BID PRN PRN Reason: WHEEZING Amlodipine Besylate (Norvasc Tab*) 10 mg PO BID [facility] Last Admin: 06/29/19 08:58 Dose: 10 mg Ascorbic Acid (Vitamin C Tab*) 1,000 mg PO DAILY [facility] Last Admin: 06/29/19 08:59 Dose: 1,000 mg Aspirin (Aspirin 81 Mg Chew Tab*) 81 mg PO DAILY [facility] Last Admin: 06/29/19 08:59 Dose: 81 mg Atorvastatin Calcium (Lipitor*) 80 mg PO BEDTIME [facility] Buspirone HCl (Buspar Tab*) 10 mg PO BID [facility] Last Admin: 06/29/19 09:01 Dose: 10 mg Cholecalciferol (Vitamin D Tab*) 2,000 units PO QAM [facility] Last Admin: 06/29/19 09:00 Dose: 2,000 units Clopidogrel Bisulfate (Plavix Tab*) 75 mg PO DAILY [facility] Last Admin: 06/29/19 09:00 Dose: 75 mg Docusate Sodium (Colace Cap*) 100 mg PO BID PRN PRN Reason: CONSTIPATION Last Admin: 06/29/19 09:00 Dose: 100 mg Famotidine (Pepcid Tab*) 20 mg PO EVERY OTHER DAY [facility] Last Admin: 06/29/19 09:02 Dose: 20 mg Finasteride (Proscar Tab*) 5 mg PO QPM [facility] Fish Oil (Fish Oil (Nf)) 1,000 mg PO TID [facility] Last Admin: 06/29/19 08:58 Dose: 1,000 mg Furosemide (Lasix Tab*) 40 mg PO BID [facility] Last Admin: 06/29/19 09:02 Dose: 40 mg Heparin Sodium (Porcine) (Heparin Vial(*)) 0 units IV .PER PROTOCOL [facility] Last Admin: 06/29/19 05:22 Dose: 4,000 units Hydralazine HCl (Apresoline Tab*) 50 mg PO TID [facility] Sodium Chloride (Ns 0.9% 1000 Ml) 1,000 mls @ 25 mls/hr IV PER RATE [facility] Sodium Chloride (Ns 0.9% 1000 Ml) 1,000 mls @ 25 mls/hr IV .per rate [facility] Stop: 06/29/19 19:29 Nicardipine/Sodium Chloride (Cardene 0.1mg/Ml Ivpremix*) 20 mg in 200 mls @ 80 mls/hr IV .(as Initial Rate) [facility] Isosorbide Mononitrate (Imdur Er Tab*) 120 mg PO BID [facility] Last Admin: 06/29/19 09:01 Dose: 120 mg Lisinopril (Prinivil Tab*) 10 mg PO QAM [facility] Magnesium Oxide (Magox 400 Tab*) 400 mg PO QAM [facility] Last Admin: 06/29/19 09:01 Dose: 400 mg Metoprolol Succinate (Toprol Xl Tab*) 12.5 mg PO DAILY [facility] Last Admin: 06/29/19 09:00 Dose: 12.5 mg Minoxidil (Loniten Tab*) 2.5 mg PO BID [facility] Last Admin: 06/29/19 09:03 Dose: 2.5 mg Morphine Sulfate (Morphine 4 Mg/Ml Vial (1 Ml)) 4 mg IV Q1H PRN PRN Reason: PAIN Stop: 06/30/19 00:10 Last Admin: 06/29/19 00:22 Dose: 4 mg Nitroglycerin (Nitroglycerin Tab 0.4 Mg*) 0.4 mg SL Q5M PRN PRN Reason: ANGINA Sertraline HCl (Zoloft*) 50 mg PO QAM [facility] Last Admin: 06/29/19 09:02 Dose: 50 mg Terazosin HCl (Hytrin Cap*) 5 mg PO BEDTIME [facility] Vitamin B Complex/Vitamin E (B Complex-50*) 1 tab PO QAM [facility] Last Admin: 06/29/19 08:59 Dose: 1 tab Vital Signs - 8 hr 06/29/19 06/29/19 06/29/19 11:15 15:25 15:26 Temperature 97.4 F 97.5 F Pulse Rate 62 72 Respiratory 16 16 16 Rate Blood Pressure 157/62 148/68 (mmHg) O2 Sat by Pulse 90 97 Oximetry 06/29/19 06/29/19 06/29/19 15:27 15:30 15:45 Temperature Pulse Rate 73 73 Respiratory 17 9 18 Rate Blood Pressure 147/71 148/68 156/69 (mmHg) O2 Sat by Pulse 92 96 Oximetry 06/29/19 06/29/19 06/29/19 16:00 16:15 16:30 Temperature Pulse Rate 74 72 79 Respiratory 14 19 18 Rate Blood Pressure 149/66 153/70 153/67 (mmHg) O2 Sat by Pulse 95 96 96 Oximetry 06/29/19 06/29/19 06/29/19 16:45 17:00 17:15 Temperature Pulse Rate 78 70 70 Respiratory 19 11 20 Rate Blood Pressure 143/73 151/68 151/66 (mmHg) O2 Sat by Pulse 98 96 94 Oximetry 06/29/19 17:30 Temperature Pulse Rate 71 Respiratory 21 Rate Blood Pressure 159/66 (mmHg) O2 Sat by Pulse 95 Oximetry Result Diagrams: 06/29/19 11:28 06/29/19 08:54 Assess/Plan/Problems-Billing Assessment: Attestation Attending/Supervising Physician Comment: Mr. Watson is a 64 year old man well known to me who has extensive history of coronary disease who was admitted early this morning with recurrent chest pain and elevated troponin. He was started on a heparin drip and evaluated by Dr. Patel, who took him to the laborer laboratory and stented a ramus artery this afternoon. I saw him afterwards in the ICU, and he is resting comfortably in no distress. His groin site is clean and without hematoma. He is chest pain free. Will continue medical management with dual antiplatelet therapy, metoprolol, statin, lisinopril, imdur. ESRD on HD. was at the bedside and she was updated.
[2019-06-29] MEDS ORDERED: niCARdipine 0.1MG/ML IVPREMIX* 20 MG/200 ML BAG IV SCH (16:00)
[2019-06-29 16:46] LABS: Troponin I 2.91 ng/mL (<0.04)
[2019-06-29] MEDS: Finasteride TAB* 5 MG PO SCH (17:39)
[2019-06-29] MEDS: Atorvastatin* 80 MG TAB PO SCH (21:11)
[2019-06-29] MEDS: Terazosin CAP* 5 MG PO SCH (21:11)
[2019-06-29 22:20] LABS: Troponin I 3.62 ng/mL (<0.04)
[2019-06-30 06:08] LABS: ABS Eosinophils 0.2 10^3/ul (0-0.6); ABS Lymphocytes 1.1 10^3/ul (1.0-4.8); ABS Monocytes 0.6 10^3/ul (0-0.8); ABS Neutrophils 6.6 10^3/ul (1.5-7.7); Eosinophil % 2.9 %; Hematocrit 26 % (42-52); Hemoglobin 9.2 g/dL (14.0-18.0); Lymphocyte % 12.3 %; Mean Corpuscular HGB Conc 35 g/dL (31-36); Mean Corpuscular Hemoglobin 30 pg (27-31); Mean Corpuscular Volume 85 fL (80-94); Mean Platelet Volume 7.5 fL (7.4-10.4); Platelet Count 217 10^3/uL (150-450); Red Blood Count 3.11 10^6 /uL (4.18-5.48); Red Cell Distribution Width 15 % (10-15); White Blood Count 8.6 10^3/uL (3.5-10.8)
[2019-06-30 06:26] LABS: BUN/Creatinine Ratio 10.4 (8-20); Calcium 8.5 mg/dL (8.6-10.3); EGFR African American 10.9 (>60)
[2019-06-30] MEDS: Metoprolol Succinate XL TAB* 25 MG PO SCH (08:02)
[2019-06-30] MEDS: CMC: OMEGA-3 FATTY ACIDS (NF) 1,000 MG CAP PO SCH ×3 (08:02→21:16)
[2019-06-30] MEDS: Cholecalciferol TAB* 1000 UNITS PO SCH (08:03)
[2019-06-30] MEDS: Ascorbic Acid TAB* 500 MG PO SCH (08:03)
[2019-06-30] MEDS: MinoXIDil TAB* 2.5 MG TAB PO SCH ×2 (08:03→21:16)
[2019-06-30] MEDS: Clopidogrel TAB* 75 MG PO SCH (08:04)
[2019-06-30] MEDS: Vitamin B Complex TAB PO SCH (08:04)
[2019-06-30] MEDS: hydrALAZINE TAB* 25 MG PO SCH ×3 (08:04→21:15)
[2019-06-30] MEDS: Isosorbide Mononitrate ER TAB* 60 MG PO SCH ×2 (08:04→21:15)
[2019-06-30] MEDS: Famotidine TAB* 20 MG PO SCH (08:04)
[2019-06-30] MEDS: Magnesium Oxide TAB* 400 MG PO SCH (08:04)
[2019-06-30] MEDS: Aspirin 81 mg CHEW TAB* 81 MG TAB.CHEW PO SCH (08:04)
[2019-06-30] MEDS: Sertraline* 50 MG TAB PO SCH (08:04)
[2019-06-30] MEDS: Docusate CAP* 100 MG PO PRN ×2 (08:04→21:16)
[2019-06-30] MEDS: busPIRone TAB* 10 MG PO SCH ×2 (08:04→21:14)
[2019-06-30] MEDS: Lisinopril TAB* 5 MG PO SCH (08:04)
[2019-06-30] MEDS: Furosemide TAB* 40 MG PO SCH ×2 (08:05→21:15)
[2019-06-30] MEDS: amLODIPine TAB* 5 MG PO SCH ×2 (08:05→21:14)
--- NOTE | 2019-06-30 08:09 | PN ---
Subjective Date of Service: 06/30/19 Interval History: Mr. Watson had an uneventful night. When asked how he is feeling this morning , he replies "I'm alive." He is depressed to be back in the hospital. He has had no further chest pain. His only complaint is pain at the chauhan catheter insertion. No tele events reported. He was out of bed to chair last night. He does note some shortness of breath on review of systems. Objective Active Medications: Albuterol (Ventolin Hfa Inhaler*) 1 puff INH BID PRN PRN Reason: WHEEZING Amlodipine Besylate (Norvasc Tab*) 10 mg PO BID [facility] Last Admin: 06/29/19 21:10 Dose: 10 mg Ascorbic Acid (Vitamin C Tab*) 1,000 mg PO DAILY [facility] Last Admin: 06/29/19 08:59 Dose: 1,000 mg Aspirin (Aspirin 81 Mg Chew Tab*) 81 mg PO DAILY [facility] Last Admin: 06/29/19 08:59 Dose: 81 mg Atorvastatin Calcium (Lipitor*) 80 mg PO BEDTIME [facility] Last Admin: 06/29/19 21:11 Dose: 80 mg Buspirone HCl (Buspar Tab*) 10 mg PO BID [facility] Last Admin: 06/29/19 21:10 Dose: 10 mg Cholecalciferol (Vitamin D Tab*) 2,000 units PO QAM [facility] Last Admin: 06/29/19 09:00 Dose: 2,000 units Clopidogrel Bisulfate (Plavix Tab*) 75 mg PO DAILY [facility] Last Admin: 06/29/19 09:00 Dose: 75 mg Docusate Sodium (Colace Cap*) 100 mg PO BID PRN PRN Reason: CONSTIPATION Last Admin: 06/29/19 09:00 Dose: 100 mg Famotidine (Pepcid Tab*) 20 mg PO EVERY OTHER DAY [facility] Last Admin: 06/29/19 09:02 Dose: 20 mg Finasteride (Proscar Tab*) 5 mg PO QPM [facility] Last Admin: 06/29/19 17:39 Dose: 5 mg Fish Oil (Fish Oil (Nf)) 1,000 mg PO TID [facility] Last Admin: 06/29/19 21:11 Dose: 1,000 mg Furosemide (Lasix Tab*) 40 mg PO BID [facility] Last Admin: 06/29/19 21:11 Dose: 40 mg Heparin Sodium (Porcine) (Heparin Vial(*)) 0 units IV .PER PROTOCOL [facility] Last Admin: 06/29/19 05:22 Dose: 4,000 units Hydralazine HCl (Apresoline Tab*) 50 mg PO TID [facility] Last Admin: 06/29/19 21:10 Dose: 50 mg Sodium Chloride (Ns 0.9% 1000 Ml) 1,000 mls @ 25 mls/hr IV PER RATE [facility] Nicardipine/Sodium Chloride (Cardene 0.1mg/Ml Ivpremix*) 20 mg in 200 mls @ 80 mls/hr IV .(as Initial Rate) [facility] Isosorbide Mononitrate (Imdur Er Tab*) 120 mg PO BID [facility] Last Admin: 06/29/19 21:10 Dose: 120 mg Lisinopril (Prinivil Tab*) 10 mg PO QAM [facility] Magnesium Oxide (Magox 400 Tab*) 400 mg PO QAM [facility] Last Admin: 06/29/19 09:01 Dose: 400 mg Metoprolol Succinate (Toprol Xl Tab*) 12.5 mg PO DAILY [facility] Last Admin: 06/29/19 09:00 Dose: 12.5 mg Minoxidil (Loniten Tab*) 2.5 mg PO BID [facility] Last Admin: 06/29/19 21:11 Dose: 2.5 mg Nitroglycerin (Nitroglycerin Tab 0.4 Mg*) 0.4 mg SL Q5M PRN PRN Reason: ANGINA Sertraline HCl (Zoloft*) 50 mg PO QAM [facility] Last Admin: 06/29/19 09:02 Dose: 50 mg Terazosin HCl (Hytrin Cap*) 5 mg PO BEDTIME [facility] Last Admin: 06/29/19 21:11 Dose: 5 mg Vitamin B Complex/Vitamin E (B Complex-50*) 1 tab PO QAM [facility] Last Admin: 06/29/19 08:59 Dose: 1 tab Vital Signs - 8 hr 06/30/19 06/30/19 06/30/19 00:15 00:30 00:45 Temperature Pulse Rate 85 86 82 Respiratory 20 29 19 Rate Blood Pressure 116/61 124/61 129/63 (mmHg) O2 Sat by Pulse 93 93 93 Oximetry 06/30/19 06/30/19 06/30/19 01:00 01:15 01:30 Temperature Pulse Rate 79 85 88 Respiratory 20 12 35 Rate Blood Pressure 128/66 111/53 110/66 (mmHg) O2 Sat by Pulse 93 92 93 Oximetry 06/30/19 06/30/19 06/30/19 01:45 02:00 02:02 Temperature Pulse Rate 86 87 92 Respiratory 16 19 20 Rate Blood Pressure 99/58 114/55 (mmHg) O2 Sat by Pulse 92 93 93 Oximetry 06/30/19 06/30/19 06/30/19 02:15 02:30 02:45 Temperature Pulse Rate 86 84 83 Respiratory 15 27 19 Rate Blood Pressure 134/61 126/61 125/61 (mmHg) O2 Sat by Pulse 94 92 92 Oximetry 06/30/19 06/30/19 06/30/19 03:00 03:01 03:15 Temperature Pulse Rate 84 87 83 Respiratory 18 20 20 Rate Blood Pressure 120/62 136/66 (mmHg) O2 Sat by Pulse 89 91 94 Oximetry 06/30/19 06/30/19 06/30/19 03:30 03:37 03:45 Temperature 98.3 F Pulse Rate 85 88 Respiratory 23 14 Rate Blood Pressure 124/66 127/62 (mmHg) O2 Sat by Pulse 90 93 Oximetry 06/30/19 06/30/19 06/30/19 04:00 04:01 04:15 Temperature Pulse Rate 84 85 85 Respiratory 16 16 16 Rate Blood Pressure 125/64 119/56 (mmHg) O2 Sat by Pulse 91 92 92 Oximetry 06/30/19 06/30/19 06/30/19 04:30 04:45 05:00 Temperature Pulse Rate 85 85 91 Respiratory 17 19 22 Rate Blood Pressure 126/58 118/62 151/71 (mmHg) O2 Sat by Pulse 91 92 94 Oximetry 06/30/19 06/30/19 06/30/19 05:15 05:30 05:45 Temperature Pulse Rate 84 86 88 Respiratory 15 19 20 Rate Blood Pressure 113/59 133/64 121/60 (mmHg) O2 Sat by Pulse 96 91 95 Oximetry 06/30/19 06/30/19 06/30/19 06:00 06:15 06:30 Temperature Pulse Rate 86 80 82 Respiratory 15 8 18 Rate Blood Pressure 117/56 126/55 132/59 (mmHg) O2 Sat by Pulse 94 95 92 Oximetry 06/30/19 06/30/19 06/30/19 06:45 07:00 07:46 Temperature 98.2 F Pulse Rate 84 83 Respiratory 31 12 Rate Blood Pressure 114/60 123/59 (mmHg) O2 Sat by Pulse 92 91 Oximetry 06/30/19 07:49 Temperature Pulse Rate Respiratory 21 Rate Blood Pressure (mmHg) O2 Sat by Pulse Oximetry Oxygen Devices in Use Now: None Appearance: alert, depressed, comfortable Eyes: No Scleral Icterus Ears/Nose/Mouth/Throat: NL Teeth, Lips, Gums Neck: - - JVP 16cm Respiratory: Symmetrical Chest Expansion and Respiratory Effort Cardiovascular: RRR, - - hyperdynamic PMI Abdominal: NL Sounds; No Tenderness; No Distention, - - left groin site clean and dry, no hematoma, no bruit Lymphatic: No Cervical Adenopathy Extremities: No Edema, - - RUE fistula Neurological: Alert and Oriented x 3 Result Diagrams: 06/30/19 05:43 06/30/19 05:43 Additional Lab and Data: Lab Results 06/29/19 06/29/19 06/29/19 Range/Units 00:14 00:14 00:14 WBC 9.2 (3.5-10.8) 10^3/uL RBC 3.48 L (4.18-5.48) 10^6 /uL Hgb 10.1 L (14.0-18.0) g/dL Hct 29 L (42-52) % MCV 85 (80-94) fL MCH 29 (27-31) pg MCHC 34 (31-36) g/dL RDW 15 (10-15) % Plt Count 233 (150-450) 10^3/uL MPV 7.5 (7.4-10.4) fL Neut % (Auto) 78.6 % Lymph % (Auto) 11.4 % [place] % (Auto) 6.7 % Eos % (Auto) 2.6 % Baso % (Auto) 0.7 % Absolute Neuts (auto) 7.2 (1.5-7.7) 10^3/ul Absolute Lymphs (auto) 1.0 (1.0-4.8) 10^3/ul Absolute Monos (auto) 0.6 (0-0.8) 10^3/ul Absolute Eos (auto) 0.2 (0-0.6) 10^3/ul Absolute Basos (auto) 0.1 (0-0.2) 10^3/ul Absolute Nucleated RBC 0.0 10^3/ul Nucleated RBC % 0.1 INR (Anticoag Therapy) 0.95 (0.82-1.09) Sodium 134 L (135-145) mmol/L Potassium 4.0 (3.5-5.0) mmol/L Chloride 98 L (101-111) mmol/L Carbon Dioxide 22 (22-32) mmol/L Anion Gap 14 H (2-11) mmol/L BUN 55 H (6-24) mg/dL Creatinine 6.06 H (0.67-1.17) mg/dL Est GFR ( Amer) 11.3 (>60) Est GFR (Non-Af Amer) 9.3 (>60) BUN/Creatinine Ratio 9.1 (8-20) Glucose 143 H (70-100) mg/dL Calcium 9.3 (8.6-10.3) mg/dL Total Bilirubin 0.50 (0.2-1.0) mg/dL AST 19 (13-39) U/L ALT 21 (7-52) U/L Alkaline Phosphatase 101 (34-104) U/L Troponin I 0.06 H* (<0.04) ng/mL Total Protein 7.3 (6.4-8.9) g/dL Albumin 4.4 (3.2-5.2) g/dL Globulin 2.9 (2-4) g/dL Albumin/Globulin Ratio 1.5 (1-3) Microbiology and Other Data: Microbiology 06/29/19 16:07 Nasal Screen MRSA (PCR) - Final Nasal Mrsa Not Detected Assess/Plan/Problems-Billing Assessment: This is a 64 year old man with history of extensive CAD and ESRD who presented on 06/29 with chest pain and was found have elevated troponin and was taken to the labor contractor with Dr. Patel where a stent was placed to the ramus artery - Patient Problems (1) ACS (acute coronary syndrome) Current Visit: Yes Status: Acute Code(s): I24.9 - ACUTE ISCHEMIC HEART DISEASE, UNSPECIFIED SNOMED Code(s): 621992939 Comment: NSTEMI PCI 06/29 now chest pain free continue dual antiplatelet, metoprolol, statin, imdur, lisinopril (2) BPH (benign prostatic hyperplasia) Current Visit: No Status: Acute Code(s): N40.0 - BENIGN PROSTATIC HYPERPLASIA WITHOUT LOWER URINRY TRACT SYMP SNOMED Code(s): 910461337 Comment: With chauhan catheter as of last week; now with pain Was due to have chauhan changed in urology office yesterday; Dr. Fleming consulted this morning Continue terazosin 5 mg, finasteride 5 mg daily (3) ESRD (end stage renal disease) Current Visit: No Status: Acute Code(s): N18.6 - END STAGE RENAL DISEASE SNOMED Code(s): 65231775 Comment: on HD- MWF needs HD today (4) HTN (hypertension) Current Visit: No Status: Acute Code(s): I10 - ESSENTIAL (PRIMARY) HYPERTENSION SNOMED Code(s): 81556909 Comment: continue minoxidil, metoprolol, nitrate, lisinopril (5) Volume overload Current Visit: No Status: Acute Code(s): E87.70 - FLUID OVERLOAD, UNSPECIFIED SNOMED Code(s): 65751356 Comment: missed a session of HD yesterday; will arrange for today stable, no O2 requirement (6) DVT prophylaxis Current Visit: Yes Status: Acute Onset Date: 02/01/15 Code(s): TSC9073 - SNOMED Code(s): 767071567 Comment: add SC heparin now that drip is off Status and Disposition: .
--- NOTE | 2019-06-30 08:52 | PN ---
<Amy Epperson - Last Filed: 06/30/19 08:46> Subjective Date of Service: 06/30/19 - NSTEMI s/p PCI/Ramus Interval History: HPI "Harris" Walter is a 64 year old man with a Pmhx has below. He recently presented with a NSTEMI and had recurrent PCI to radial-graft PDA recurrent restenosis that was felt to be the culprit at the time. Due to asymptomatic bradycardia, brilinta was changed to plavix, was weaned off clonidine and beta- lalito dose was decreased. When he left the hospital Tuesday 06/26 he was feeling well and ambulating without symptoms. 06/29/2019 he had severe right sided chest discomfort like he was trying to "burp a baby" associated with right upper arm pain. This was in addition to his chronic musculoskeletal right shoulder pain. He ruled in for ACS with EKG changes and a rise in troponin. He underwent PCI to ramus 06/29/2019. No events last night. He offers no complaints except for some mild SOB. Medications Active Medications: Albuterol (Ventolin Hfa Inhaler*) 1 puff INH BID PRN PRN Reason: WHEEZING Amlodipine Besylate (Norvasc Tab*) 10 mg PO BID PENDING SALE TO [facility] Last Admin: 06/30/19 08:05 Dose: 10 mg Ascorbic Acid (Vitamin C Tab*) 1,000 mg PO DAILY PENDING SALE TO [facility] Last Admin: 06/30/19 08:03 Dose: 1,000 mg Aspirin (Aspirin 81 Mg Chew Tab*) 81 mg PO DAILY PENDING SALE TO [facility] Last Admin: 06/30/19 08:04 Dose: 81 mg Atorvastatin Calcium (Lipitor*) 80 mg PO BEDTIME PENDING SALE TO [facility] Last Admin: 06/29/19 21:11 Dose: 80 mg Buspirone HCl (Buspar Tab*) 10 mg PO BID PENDING SALE TO [facility] Last Admin: 06/30/19 08:04 Dose: 10 mg Cholecalciferol (Vitamin D Tab*) 2,000 units PO QAM PENDING SALE TO [facility] Last Admin: 06/30/19 08:03 Dose: 2,000 units Clopidogrel Bisulfate (Plavix Tab*) 75 mg PO DAILY PENDING SALE TO [facility] Last Admin: 06/30/19 08:04 Dose: 75 mg Docusate Sodium (Colace Cap*) 100 mg PO BID PRN PRN Reason: CONSTIPATION Last Admin: 06/30/19 08:04 Dose: 100 mg Famotidine (Pepcid Tab*) 20 mg PO EVERY OTHER DAY PENDING SALE TO [facility] Last Admin: 06/30/19 08:04 Dose: 20 mg Finasteride (Proscar Tab*) 5 mg PO QPM PENDING SALE TO [facility] Last Admin: 06/29/19 17:39 Dose: 5 mg Fish Oil (Fish Oil (Nf)) 1,000 mg PO TID PENDING SALE TO [facility] Last Admin: 06/30/19 08:02 Dose: 1,000 mg Furosemide (Lasix Tab*) 40 mg PO BID PENDING SALE TO [facility] Last Admin: 06/30/19 08:05 Dose: 40 mg Heparin Sodium (Porcine) (Heparin Vial(*)) 0 units IV .PER PROTOCOL PENDING SALE TO [facility] Last Admin: 06/29/19 05:22 Dose: 4,000 units Hydralazine HCl (Apresoline Tab*) 50 mg PO TID PENDING SALE TO [facility] Last Admin: 06/30/19 08:04 Dose: 50 mg Sodium Chloride (Ns 0.9% 1000 Ml) 1,000 mls @ 25 mls/hr IV PER RATE PENDING SALE TO [facility] Nicardipine/Sodium Chloride (Cardene 0.1mg/Ml Ivpremix*) 20 mg in 200 mls @ 80 mls/hr IV .(as Initial Rate) PENDING SALE TO [facility] Isosorbide Mononitrate (Imdur Er Tab*) 120 mg PO BID PENDING SALE TO [facility] Last Admin: 06/30/19 08:04 Dose: 120 mg Lisinopril (Prinivil Tab*) 10 mg PO QAM PENDING SALE TO [facility] Last Admin: 06/30/19 08:04 Dose: 10 mg Magnesium Oxide (Magox 400 Tab*) 400 mg PO QAM PENDING SALE TO [facility] Last Admin: 06/30/19 08:04 Dose: 400 mg Metoprolol Succinate (Toprol Xl Tab*) 12.5 mg PO DAILY PENDING SALE TO [facility] Last Admin: 06/30/19 08:02 Dose: 12.5 mg Minoxidil (Loniten Tab*) 2.5 mg PO BID PENDING SALE TO [facility] Last Admin: 06/30/19 08:03 Dose: 2.5 mg Nitroglycerin (Nitroglycerin Tab 0.4 Mg*) 0.4 mg SL Q5M PRN PRN Reason: ANGINA Sertraline HCl (Zoloft*) 50 mg PO QAM PENDING SALE TO [facility] Last Admin: 06/30/19 08:04 Dose: 50 mg Terazosin HCl (Hytrin Cap*) 5 mg PO BEDTIME PENDING SALE TO [facility] Last Admin: 06/29/19 21:11 Dose: 5 mg Vitamin B Complex/Vitamin E (B Complex-50*) 1 tab PO QAM PENDING SALE TO [facility] Last Admin: 06/30/19 08:04 Dose: 1 tab Objective Vital Signs: Temp Pulse Resp BP Pulse Ox 98.2 F 83 19 139/64 95 06/30/19 07:46 06/30/19 07:00 06/30/19 08:15 06/30/19 08:15 06/30/19 08:15 Oxygen Devices in Use Now: None Appearance: chronically ill appearing but not toxic Ears/Nose/Mouth/Throat: Clear Oropharnyx, Mucous Membranes Moist Neck: NL Appearance and Movements; NL JVP, Trachea Midline Respiratory: Symmetrical Chest Expansion and Respiratory Effort, Clear to Auscultation Cardiovascular: RRR, - - + diastolic murmur. Left and right femoral access sites are intact, no hematoma. strong dorsalis pedis pulses palpated bilaterally and symmetrically. Abdominal: NL Sounds; No Tenderness; No Distention Extremities: No Clubbing, Cyanosis, - - right AV fistula Skin: No Rash or Ulcers Neurological: Alert and Oriented x 3 Lines/Tubes/Other Access: Clean, Dry and Intact Peripheral IV Laboratory Results: 06/30/19 05:43 06/30/19 05:43 INR (Anticoag Therapy) 0.95 (0.82-1.09) 06/29/19 00:14 APTT 42.9 seconds (26.0-38.0) H 06/29/19 11:28 Total Bilirubin 0.50 mg/dL (0.2-1.0) 06/29/19 00:14 AST 19 U/L (13-39) 06/29/19 00:14 ALT 21 U/L (7-52) 06/29/19 00:14 Alkaline Phosphatase 101 U/L (34-104) 06/29/19 00:14 Total Protein 7.3 g/dL (6.4-8.9) 06/29/19 00:14 Albumin 4.4 g/dL (3.2-5.2) 06/29/19 00:14 Globulin 2.9 g/dL (2-4) 06/29/19 00:14 Albumin/Globulin Ratio 1.5 (1-3) 06/29/19 00:14 06/29/19 06/29/19 06/29/19 00:14 02:39 05:45 Troponin I 0.06 H* 0.39 H* 1.60 H* 06/29/19 06/29/19 06/29/19 08:54 11:28 16:07 Troponin I 2.23 H* 2.92 H* 2.91 H* 06/29/19 21:50 Troponin I 3.62 H* Laboratory Results - last 24 hr 06/29/19 06/29/19 06/29/19 08:54 08:54 11:28 WBC RBC Hgb Hct MCV MCH MCHC RDW Plt Count MPV Neut % (Auto) Lymph % (Auto) [place] % (Auto) Eos % (Auto) Baso % (Auto) Absolute Neuts (auto) Absolute Lymphs (auto) Absolute Monos (auto) Absolute Eos (auto) Absolute Basos (auto) Absolute Nucleated RBC Nucleated RBC % APTT 54.4 H 42.9 H POC Activ Clotting Time Sodium 139 Potassium 4.2 Chloride 104 Carbon Dioxide 23 Anion Gap 12 H BUN 56 H Creatinine 6.24 H Est GFR ( Amer) 10.9 Est GFR (Non-Af Amer) 9.0 BUN/Creatinine Ratio 9.0 Glucose 123 H Calcium 9.2 Troponin I 2.23 H* 06/29/19 06/29/19 06/29/19 11:28 11:28 11:28 WBC 8.4 RBC 3.45 L Hgb 10.1 L Hct 30 L MCV 86 MCH 29 MCHC 34 RDW 15 Plt Count 227 MPV 7.2 L Neut % (Auto) 73.3 Lymph % (Auto) 16.6 [place] % (Auto) 6.7 Eos % (Auto) 2.7 Baso % (Auto) 0.7 Absolute Neuts (auto) 6.2 Absolute Lymphs (auto) 1.4 Absolute Monos (auto) 0.6 Absolute Eos (auto) 0.2 Absolute Basos (auto) 0.1 Absolute Nucleated RBC 0.0 Nucleated RBC % 0.1 APTT 41.7 H POC Activ Clotting Time Sodium Potassium Chloride Carbon Dioxide Anion Gap BUN Creatinine Est GFR ( Amer) Est GFR (Non-Af Amer) BUN/Creatinine Ratio Glucose Calcium Troponin I 2.92 H* 06/29/19 06/29/19 06/29/19 12:53 13:08 13:20 WBC RBC Hgb Hct MCV MCH MCHC RDW Plt Count MPV Neut % (Auto) Lymph % (Auto) [place] % (Auto) Eos % (Auto) Baso % (Auto) Absolute Neuts (auto) Absolute Lymphs (auto) Absolute Monos (auto) Absolute Eos (auto) Absolute Basos (auto) Absolute Nucleated RBC Nucleated RBC % APTT POC Activ Clotting Time 150 191 207 Sodium Potassium Chloride Carbon Dioxide Anion Gap BUN Creatinine Est GFR ( Amer) Est GFR (Non-Af Amer) BUN/Creatinine Ratio Glucose Calcium Troponin I 06/29/19 06/29/19 06/29/19 13:35 13:48 14:10 WBC RBC Hgb Hct MCV MCH MCHC RDW Plt Count MPV Neut % (Auto) Lymph % (Auto) [place] % (Auto) Eos % (Auto) Baso % (Auto) Absolute Neuts (auto) Absolute Lymphs (auto) Absolute Monos (auto) Absolute Eos (auto) Absolute Basos (auto) Absolute Nucleated RBC Nucleated RBC % APTT POC Activ Clotting Time 227 219 231 Sodium Potassium Chloride Carbon Dioxide Anion Gap BUN Creatinine Est GFR ( Amer) Est GFR (Non-Af Amer) BUN/Creatinine Ratio Glucose Calcium Troponin I 06/29/19 06/29/19 06/29/19 14:31 16:07 21:50 WBC RBC Hgb Hct MCV MCH MCHC RDW Plt Count MPV Neut % (Auto) Lymph % (Auto) [place] % (Auto) Eos % (Auto) Baso % (Auto) Absolute Neuts (auto) Absolute Lymphs (auto) Absolute Monos (auto) Absolute Eos (auto) Absolute Basos (auto) Absolute Nucleated RBC Nucleated RBC % APTT POC Activ Clotting Time 263 Sodium Potassium Chloride Carbon Dioxide Anion Gap BUN Creatinine Est GFR ( Amer) Est GFR (Non-Af Amer) BUN/Creatinine Ratio Glucose Calcium Troponin I 2.91 H* 3.62 H* 06/30/19 06/30/19 05:43 05:43 WBC 8.6 RBC 3.11 L Hgb 9.2 L Hct 26 L MCV 85 MCH 30 MCHC 35 RDW 15 Plt Count 217 MPV 7.5 Neut % (Auto) 77.1 Lymph % (Auto) 12.3 [place] % (Auto) 7.2 Eos % (Auto) 2.9 Baso % (Auto) 0.5 Absolute Neuts (auto) 6.6 Absolute Lymphs (auto) 1.1 Absolute Monos (auto) 0.6 Absolute Eos (auto) 0.2 Absolute Basos (auto) 0.0 Absolute Nucleated RBC 0.0 Nucleated RBC % 0.0 APTT POC Activ Clotting Time Sodium 135 Potassium 4.0 Chloride 104 Carbon Dioxide 21 L Anion Gap 10 BUN 65 H Creatinine 6.25 H Est GFR ( Amer) 10.9 Est GFR (Non-Af Amer) 9.0 BUN/Creatinine Ratio 10.4 Glucose 117 H Calcium 8.5 L Troponin I Diagnostic Imaging: CTA head and neck 01/2016: Chronic occlusion of L vertebral artery Moderate to high grade R MCA stenosis Patent stents in L common and internal carotid arteries and within L MCA Moderate proximal R [employer]ING [employer]IST stenosis Mild-moderate distal basilar artery narrowing MRI brain 01/2016: Small areas of acute ischemia within R lentiform nucleus and R periventricular white maller Acute small area of posterior lilia 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 Septal occlusion device noted. Mild/mod mitral regurgitation.Mild tricuspid regurgitation. No pulmonary hypertension. Holter Monitor - (02/01/2015) Underlying rhythm NSR with average HR 58bpm, min HR 43bpm, max HR 100bpm. Ventricular ectopic activity mild to moderate, PVC' s with bigeminal rhythm noted, no V-Tach. Supraventricular ectopic activity mild to moderate. Dc - (03/31/2010) Transesophageal - LV function normal EF- 65%. PFO + ASA with predominantly right to left flow Atheroma noted in ascending and descending aorta. Cardiac Procedures: Cardiac Catheterization - (02/16/2019) FIELD SALES TRAINER of pLAD with regrograde filling of patent martinez to a small diagonal and obstructive LAD proximal, Lcx lesion up to 60% and collaterals to RCA. RCA known occluded from prior angiogram, free pedicle radial artery graft to PDA critical 90% lesion prior to previous stent placement and also 80% ISR of prior graft stent s/p PCI/MARGARET x 2 to both graft lesions Cardiac Catheterization - (10/25/2014) 40-45% distal left main lesion. 90% ostial LAD pass this point, there was some lucency suggesting possible thrombus. The vessel then tapered with competitive flow seen. Thin D1 to small for intervention. The MARTINEZ graft to the left anterior descending artery was widely patent with a good anastomosis with diffuse disease seen in the modoc LAD distal to the insertion point with narrowing as much as 70%. Retrograde filling back to a more proximal posteriorly directed diagonal branch was noted with as much as a 75-80% obstruction seen Lcx high trifurcation marginal branch which had 75-80% proximal obstruction too small for intervention. Past the first trifurcation marginal branch, the circumflex had an area of narrowing that appeared to be 45-50% followed by a 60% mid lesion in the proximal portion of a bifurcating obtuse marginal branch. FIELD SALES TRAINER of pRCA collateralized via Lcx and septal perforators. Radial artery graft to the posterior descending artery had a proximal 65-70% lesion followed by a 99% lesion seen in the mid-portion. This vessel underwent intervention with balloon angioplasty and placement of a 2.25 x 24 millimeter long Promus Premier drug eluting stent in the midportion and the placement of a 2.5 x 16 millimeter long Promus Premier drug eluting stent in the proximal portion post-dilated to 2.85 millimeters in the proximal portion. Coronary Bypass Grafting - (07/05/2003) MARTINEZ to LAD, Left radial to PDA of RCA. The PLVB and Ramus was felt to be too small for bypass by the surgeon. Cardiac Catheterization - (07/01/2003) 90%proximal LAD, 80 % mid LAD, 50 % mid circ, 70% proximal stenosis in moderate sized Ramus Intermedius. RCA with 30 % proximal, 50 % mid, and 80% distal invovling ostium of PDA and ostium of PLVB. LVEF 66 % with trace MR on Vgram. 06/29/[address] Hannon RFA RESULTS: CORONARY ARTERIOGRAPHY: A. Left coronary artery: 1. Left main - widely patent. 2. Left anterior descending artery - totally occluded for a short distance from its ostium. There was a posteriorly directed first diagonal branch, small in caliber, with diffuse disease with an area of 80% in the proximal portion of the diagonal branch and a 75% to 80% ostial narrowing. 3. Circumflex artery - a nondominant vessel supplying a thin first obtuse marginal branch followed by a second thin obtuse marginal branch. The artery then had a third obtuse marginal branch, which bifurcated. There was diffuse disease noted in the proximal portion with a stenosis of 65% seen followed by an area of 65% to 70%. Of note, there was collateralization seen to the distal right coronary artery, posterior left ventricular branches and body of the right coronary artery. B. Right coronary artery - known to be totally occluded from prior cardiac catheterizations. MARTINEZ GRAFT ARTERIOGRAPHY: - the MARTINEZ graft was widely patent with good anastomosis to a very thin left anterior descending artery with retrograde filling to a more proximal posteriorly directed diagonal branch. In general, the modoc vessels were extremely small in caliber. FREE PEDICLE RADIAL ARTERIOGRAPHY TO POSTERIOR DESCENDING ARTERY: The bypass was noted to have significant in-stent restenosis in the proximal portion with a stenosis as much as 85% to 90% seen in the main body of the prior stented area. Of note, there were 2 stents within this area already placed. More proximally, there was a narrowing of 65% within the stent area. The rest of the bypass showed no significant in-stent restenosis into the area of prior stent placement in the mid- to-distal portion. It attached to the posterior descending artery, which bifurcated. There was a 50% lesion seen within the posterior descending artery in its [id number] portion. INTERVENTION INTO PROXIMAL PORTION OF FREE PEDICLE RADIAL ARTERY GRAFT TO POSTERIOR DESCENDING ARTERY:Successful reduction of critical 90% to 95% stenosis and 65% stenosis using balloon angioplasty and placement of a 3.0 x 20 mm long Synergy drug- eluting stent post dilated to its highest 3.25 mm with JAE-3 flow and 10% residual stenosis. EKG Data: ekg 06/28/2019 1: NSR, ivcd, ischemic ST depression inferior and leads v4-v6 ekg 2: similar except ST cahnges are more downsloping and prominent ekg 3 06/29/2019: NSR, improvement of ST depression but has not returned to baseline from 06/25/2019 06/29/2019 ECG; Sinus rhythm rate [address] minor [address] depression in lateral leads. Assessment/Plan #1 NSTEMI; Patient is s/p PCI/Ramus 06/29/2019. No recurrent c/o chest pain, indigestion. No events last night. left and right femoral access sites are intact, no hematoma. strong femoral and dorsalis pedis pulses palpated bilaterally and symmetrically. On ASA 81/day, Lipitor 80 QHS, Plavix 75/day, Imdur 120 BID, Toprol 12.5/day and Norvasc therapy. #2 ESRD on HD followed by Dr. Byers. Due for dialysis today. #3 h/o HLD; goal LDL < 70 due to h/o CAD. On Lipitor 80QHS #4 H/o HTN; BP at goal on current therapy. #5 Disposition pending course. Continue current therapy. No medication changes at this time. bilateral femoral access sites are intact. will d/w Dr. Patel. Attending: Karen Patel <Karen Patel - Last Filed: 06/30/19 18:03> Medications Active Medications: Acetaminophen (Tylenol Tab*) 650 mg PO Q4H PRN PRN Reason: PAIN - MILD Last Admin: 06/30/19 14:44 Dose: 650 mg Albuterol (Ventolin Hfa Inhaler*) 1 puff INH BID PRN PRN Reason: WHEEZING Amlodipine Besylate (Norvasc Tab*) 10 mg PO BID PENDING SALE TO [facility] Last Admin: 06/30/19 08:05 Dose: 10 mg Ascorbic Acid (Vitamin C Tab*) 1,000 mg PO DAILY PENDING SALE TO [facility] Last Admin: 06/30/19 08:03 Dose: 1,000 mg Aspirin (Aspirin 81 Mg Chew Tab*) 81 mg PO DAILY PENDING SALE TO [facility] Last Admin: 06/30/19 08:04 Dose: 81 mg Atorvastatin Calcium (Lipitor*) 80 mg PO BEDTIME PENDING SALE TO [facility] Last Admin: 06/29/19 21:11 Dose: 80 mg Buspirone HCl (Buspar Tab*) 10 mg PO BID PENDING SALE TO [facility] Last Admin: 06/30/19 08:04 Dose: 10 mg Cholecalciferol (Vitamin D Tab*) 2,000 units PO QAM PENDING SALE TO [facility] Last Admin: 06/30/19 08:03 Dose: 2,000 units Clopidogrel Bisulfate (Plavix Tab*) 75 mg PO DAILY PENDING SALE TO [facility] Last Admin: 06/30/19 08:04 Dose: 75 mg Docusate Sodium (Colace Cap*) 100 mg PO BID PRN PRN Reason: CONSTIPATION Last Admin: 06/30/19 08:04 Dose: 100 mg Famotidine (Pepcid Tab*) 20 mg PO EVERY OTHER DAY PENDING SALE TO [facility] Last Admin: 06/30/19 08:04 Dose: 20 mg Finasteride (Proscar Tab*) 5 mg PO QPM PENDING SALE TO [facility] Last Admin: 06/30/19 16:52 Dose: 5 mg Fish Oil (Fish Oil (Nf)) 1,000 mg PO TID PENDING SALE TO [facility] Last Admin: 06/30/19 14:37 Dose: 1,000 mg Furosemide (Lasix Tab*) 40 mg PO BID PENDING SALE TO [facility] Last Admin: 06/30/19 08:05 Dose: 40 mg Hydralazine HCl (Apresoline Tab*) 50 mg PO TID PENDING SALE TO [facility] Last Admin: 06/30/19 14:37 Dose: 50 mg Isosorbide Mononitrate (Imdur Er Tab*) 120 mg PO BID PENDING SALE TO [facility] Last Admin: 06/30/19 08:04 Dose: 120 mg Lisinopril (Prinivil Tab*) 10 mg PO QAM PENDING SALE TO [facility] Last Admin: 06/30/19 08:04 Dose: 10 mg Magnesium Oxide (Magox 400 Tab*) 400 mg PO QAM PENDING SALE TO [facility] Last Admin: 06/30/19 08:04 Dose: 400 mg Metoprolol Succinate (Toprol Xl Tab*) 12.5 mg PO DAILY PENDING SALE TO [facility] Last Admin: 06/30/19 08:02 Dose: 12.5 mg Minoxidil (Loniten Tab*) 2.5 mg PO BID PENDING SALE TO [facility] Last Admin: 06/30/19 08:03 Dose: 2.5 mg Nitroglycerin (Nitroglycerin Tab 0.4 Mg*) 0.4 mg SL Q5M PRN PRN Reason: ANGINA Sertraline HCl (Zoloft*) 50 mg PO QAM PENDING SALE TO [facility] Last Admin: 06/30/19 08:04 Dose: 50 mg Terazosin HCl (Hytrin Cap*) 5 mg PO BEDTIME PENDING SALE TO [facility] Last Admin: 06/29/19 21:11 Dose: 5 mg Vitamin B Complex/Vitamin E (B Complex-50*) 1 tab PO QAM PENDING SALE TO [facility] Last Admin: 06/30/19 08:04 Dose: 1 tab Objective Vital Signs: Temp Pulse Resp BP Pulse Ox 97.4 F 57 20 113/57 97 06/30/19 15:26 06/30/19 15:26 06/30/19 15:26 06/30/19 15:26 06/30/19 15:26 Laboratory Results: 06/30/19 05:43 06/30/19 05:43 INR (Anticoag Therapy) 0.95 (0.82-1.09) 06/29/19 00:14 APTT 42.9 seconds (26.0-38.0) H 06/29/19 11:28 Total Bilirubin 0.50 mg/dL (0.2-1.0) 06/29/19 00:14 AST 19 U/L (13-39) 06/29/19 00:14 ALT 21 U/L (7-52) 06/29/19 00:14 Alkaline Phosphatase 101 U/L (34-104) 06/29/19 00:14 Total Protein 7.3 g/dL (6.4-8.9) 06/29/19 00:14 Albumin 4.4 g/dL (3.2-5.2) 06/29/19 00:14 Globulin 2.9 g/dL (2-4) 06/29/19 00:14 Albumin/Globulin Ratio 1.5 (1-3) 06/29/19 00:14 06/29/19 06/29/19 06/29/19 00:14 02:39 05:45 Troponin I 0.06 H* 0.39 H* 1.60 H* 06/29/19 06/29/19 06/29/19 08:54 11:28 16:07 Troponin I 2.23 H* 2.92 H* 2.91 H* 06/29/19 06/30/19 21:50 09:31 Troponin I 3.62 H* 5.76 H* Assessment/Plan Seen and reviewed; I agree w above. R groin as well as l groin sites normal wo hematoma, bruit. Bp improved w raised ACEI and Hydralazine. Avoiding Brilinta , higher dose B Lalito due to prior nolvia.
[2019-06-30 10:30] LABS: Troponin I 5.76 ng/mL (<0.04)
[2019-06-30] MEDS ORDERED: Heparin DIALYSIS ONLY(*) 1,000 UNITS/ML VIAL DIALYSIS ONE (11:00)
[2019-06-30] MEDS ORDERED: EPOETIN ALFA-EPBX * 2,000 UNIT/ML VIAL IV ONE (11:00)
[2019-06-30] MEDS ORDERED: EPOETIN ALFA-EPBX * 3,000 UNIT/ML VIAL IV ONE (11:00)
[2019-06-30] MEDS ORDERED: Acetaminophen TAB* 325 MG PO PRN (12:34)
[2019-06-30] MEDS: Finasteride TAB* 5 MG PO SCH (16:52)
[2019-06-30 18:06] LABS: Troponin I 6.07 ng/mL (<0.04)
[2019-06-30 20:29] LABS: Troponin I 6.22 ng/mL (<0.04)
[2019-06-30] MEDS ORDERED: Lidocaine 2% JELLY* 6 ML JELLY TOPICAL ONE (20:29)
[2019-06-30] MEDS: Atorvastatin* 80 MG TAB PO SCH (21:14)
[2019-06-30] MEDS: Terazosin CAP* 5 MG PO SCH (21:16)
[2019-06-30] MEDS ORDERED: Morphine INJ* 2 MG/ML 1 ML SYRINGE (TWO MG - NEW SYRINGE VERSION) IV ONE (23:00)
[2019-07-01 07:28] LABS: Calcium 8.6 mg/dL (8.6-10.3); Magnesium 2.1 mg/dL (1.9-2.7); Potassium 4.1 mmol/L (3.5-5.0)
[2019-07-01 07:33] LABS: BUN/Creatinine Ratio 7.9 (8-20); EGFR African American 13.1 (>60); EGFR Non-African American 10.8 (>60)
[2019-07-01 07:46] LABS: Troponin I 6.35 ng/mL (<0.04)
--- NOTE | 2019-07-01 08:25 | PN ---
<Amy Eppersno - Last Filed: 07/01/19 08:31> Subjective Date of Service: 07/01/19 - NSTEMI s/p PCI/Ramus Interval History: "Harris" Walter is a 64 year old man with a Pmhx has below. He recently presented with a NSTEMI and had recurrent PCI to radial-graft PDA recurrent restenosis that was felt to be the culprit at the time. Due to asymptomatic bradycardia, brilinta was changed to plavix, was weaned off clonidine and beta- kedar dose was decreased. When he left the hospital Tuesday 06/26 he was feeling well and ambulating without symptoms. 06/29/2019 he had severe right sided chest discomfort like he was trying to "burp a baby" associated with right upper arm pain. This was in addition to his chronic musculoskeletal right shoulder pain. He ruled in for ACS with EKG changes and a rise in troponin. He underwent PCI to ramus 06/29/2019. No events last night. He offers no complaints except for some mild SOB he is to have have dialysis again this morning. He has been ambulating the halls without difficulty. Medications Active Medications: Acetaminophen (Tylenol Tab*) 650 mg PO Q4H PRN PRN Reason: PAIN - MILD Last Admin: 06/30/19 14:44 Dose: 650 mg Albuterol (Ventolin Hfa Inhaler*) 1 puff INH BID PRN PRN Reason: WHEEZING Amlodipine Besylate (Norvasc Tab*) 10 mg PO BID [facility] Last Admin: 06/30/19 21:14 Dose: 10 mg Ascorbic Acid (Vitamin C Tab*) 1,000 mg PO DAILY [facility] Last Admin: 06/30/19 08:03 Dose: 1,000 mg Aspirin (Aspirin 81 Mg Chew Tab*) 81 mg PO DAILY [facility] Last Admin: 06/30/19 08:04 Dose: 81 mg Atorvastatin Calcium (Lipitor*) 80 mg PO BEDTIME [facility] Last Admin: 06/30/19 21:14 Dose: 80 mg Buspirone HCl (Buspar Tab*) 10 mg PO BID [facility] Last Admin: 06/30/19 21:14 Dose: 10 mg Cholecalciferol (Vitamin D Tab*) 2,000 units PO QAM [facility] Last Admin: 06/30/19 08:03 Dose: 2,000 units Clopidogrel Bisulfate (Plavix Tab*) 75 mg PO DAILY [facility] Last Admin: 06/30/19 08:04 Dose: 75 mg Docusate Sodium (Colace Cap*) 100 mg PO BID PRN PRN Reason: CONSTIPATION Last Admin: 06/30/19 21:16 Dose: 100 mg Famotidine (Pepcid Tab*) 20 mg PO EVERY OTHER DAY [facility] Last Admin: 06/30/19 08:04 Dose: 20 mg Finasteride (Proscar Tab*) 5 mg PO QPM [facility] Last Admin: 06/30/19 16:52 Dose: 5 mg Fish Oil (Fish Oil (Nf)) 1,000 mg PO TID [facility] Last Admin: 06/30/19 21:16 Dose: 1,000 mg Furosemide (Lasix Tab*) 40 mg PO BID [facility] Last Admin: 06/30/19 21:15 Dose: 40 mg Hydralazine HCl (Apresoline Tab*) 50 mg PO TID [facility] Last Admin: 06/30/19 21:15 Dose: 50 mg Isosorbide Mononitrate (Imdur Er Tab*) 120 mg PO BID [facility] Last Admin: 06/30/19 21:15 Dose: 120 mg Lidocaine HCl (Lidocaine 2% Jelly*) 1 applic TOPICAL TID [facility] Lisinopril (Prinivil Tab*) 10 mg PO QAM [facility] Last Admin: 06/30/19 08:04 Dose: 10 mg Magnesium Oxide (Magox 400 Tab*) 400 mg PO QAM [facility] Last Admin: 06/30/19 08:04 Dose: 400 mg Metoprolol Succinate (Toprol Xl Tab*) 12.5 mg PO DAILY [facility] Last Admin: 06/30/19 08:02 Dose: 12.5 mg Minoxidil (Loniten Tab*) 2.5 mg PO BID [facility] Last Admin: 06/30/19 21:16 Dose: 2.5 mg Nitroglycerin (Nitroglycerin Tab 0.4 Mg*) 0.4 mg SL Q5M PRN PRN Reason: ANGINA Sertraline HCl (Zoloft*) 50 mg PO QAM [facility] Last Admin: 06/30/19 08:04 Dose: 50 mg Terazosin HCl (Hytrin Cap*) 5 mg PO BEDTIME [facility] Last Admin: 06/30/19 21:16 Dose: 5 mg Vitamin B Complex/Vitamin E (B Complex-50*) 1 tab PO QAM CHON Last Admin: 06/30/19 08:04 Dose: 1 tab Objective Vital Signs: Temp Pulse Resp BP Pulse Ox 97.2 F 90 19 120/64 95 07/01/19 07:22 07/01/19 07:22 07/01/19 07:22 07/01/19 07:22 07/01/19 07:22 Oxygen Devices in Use Now: None Appearance: chronically ill appearing but not toxic Ears/Nose/Mouth/Throat: Clear Oropharnyx, Mucous Membranes Moist Neck: NL Appearance and Movements; NL JVP, Trachea Midline Respiratory: Symmetrical Chest Expansion and Respiratory Effort, Clear to Auscultation Cardiovascular: RRR, - - + diastolic murmur. Left and right femoral access sites are intact, no hematoma. strong dorsalis pedis pulses palpated bilaterally and symmetrically. Abdominal: NL Sounds; No Tenderness; No Distention Extremities: No Clubbing, Cyanosis, - - right AV fistula Skin: No Rash or Ulcers Neurological: Alert and Oriented x 3 Lines/Tubes/Other Access: Clean, Dry and Intact Peripheral IV Laboratory Results: 06/30/19 05:43 07/01/19 06:18 INR (Anticoag Therapy) 0.95 (0.82-1.09) 06/29/19 00:14 APTT 42.9 seconds (26.0-38.0) H 06/29/19 11:28 Total Bilirubin 0.50 mg/dL (0.2-1.0) 06/29/19 00:14 AST 19 U/L (13-39) 06/29/19 00:14 ALT 21 U/L (7-52) 06/29/19 00:14 Alkaline Phosphatase 101 U/L (34-104) 06/29/19 00:14 Total Protein 7.3 g/dL (6.4-8.9) 06/29/19 00:14 Albumin 4.4 g/dL (3.2-5.2) 06/29/19 00:14 Globulin 2.9 g/dL (2-4) 06/29/19 00:14 Albumin/Globulin Ratio 1.5 (1-3) 06/29/19 00:14 06/29/19 06/29/19 06/29/19 00:14 02:39 05:45 Troponin I 0.06 H* 0.39 H* 1.60 H* 06/29/19 06/29/19 06/29/19 08:54 11:28 16:07 Troponin I 2.23 H* 2.92 H* 2.91 H* 06/29/19 06/30/19 06/30/19 21:50 09:31 17:30 Troponin I 3.62 H* 5.76 H* 6.07 H* 06/30/19 07/01/19 19:55 06:18 Troponin I 6.22 H* 6.35 H* Laboratory Results - last 24 hr 06/30/19 06/30/19 06/30/19 09:31 17:30 19:55 Sodium Potassium Chloride Carbon Dioxide Anion Gap BUN Creatinine Est GFR ( Amer) Est GFR (Non-Af Amer) BUN/Creatinine Ratio Glucose Calcium Magnesium Troponin I 5.76 H* 6.07 H* 6.22 H* 07/01/19 06:18 Sodium 135 Potassium 4.1 Chloride 100 L Carbon Dioxide 25 Anion Gap 10 BUN 42 H Creatinine 5.34 H Est GFR ( Amer) 13.1 Est GFR (Non-Af Amer) 10.8 BUN/Creatinine Ratio 7.9 L Glucose 123 H Calcium 8.6 Magnesium 2.1 Troponin I 6.35 H* Diagnostic Imaging: CTA head and neck 01/2016: Chronic occlusion of L vertebral artery Moderate to high grade R MCA stenosis Patent stents in L common and internal carotid arteries and within L MCA Moderate proximal R COVERAGE ANALYST stenosis Mild-moderate distal basilar artery narrowing MRI brain 01/2016: Small areas of acute ischemia within R lentiform nucleus and R periventricular white maller Acute small area of posterior lilia 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 Septal occlusion device noted. Mild/mod mitral regurgitation.Mild tricuspid regurgitation. No pulmonary hypertension. Holter Monitor - (02/01/2015) Underlying rhythm NSR with average HR 58bpm, min HR 43bpm, max HR 100bpm. Ventricular ectopic activity mild to moderate, PVC' s with bigeminal rhythm noted, no V-Tach. Supraventricular ectopic activity mild to moderate. Dc - (03/31/2010) Transesophageal - LV function normal EF- 65%. PFO + ASA with predominantly right to left flow Atheroma noted in ascending and descending aorta. Cardiac Procedures: Cardiac Catheterization - (02/16/2019) TEST DEVELOPER of pLAD with regrograde filling of patent martinez to a small diagonal and obstructive LAD proximal, Lcx lesion up to 60% and collaterals to RCA. RCA known occluded from prior angiogram, free pedicle radial artery graft to PDA critical 90% lesion prior to previous stent placement and also 80% ISR of prior graft stent s/p PCI/MARGARET x 2 to both graft lesions Cardiac Catheterization - (10/25/2014) 40-45% distal left main lesion. 90% ostial LAD pass this point, there was some lucency suggesting possible thrombus. The vessel then tapered with competitive flow seen. Thin D1 to small for intervention. The MARTINEZ graft to the left anterior descending artery was widely patent with a good anastomosis with diffuse disease seen in the [place] LAD distal to the insertion point with narrowing as much as 70%. Retrograde filling back to a more proximal posteriorly directed diagonal branch was noted with as much as a 75-80% obstruction seen Lcx high trifurcation marginal branch which had 75-80% proximal obstruction too small for intervention. Past the first trifurcation marginal branch, the circumflex had an area of narrowing that appeared to be 45-50% followed by a 60% mid lesion in the proximal portion of a bifurcating obtuse marginal branch. TEST DEVELOPER of pRCA collateralized via Lcx and septal perforators. Radial artery graft to the posterior descending artery had a proximal 65-70% lesion followed by a 99% lesion seen in the mid-portion. This vessel underwent intervention with balloon angioplasty and placement of a 2.25 x 24 millimeter long Promus Premier drug eluting stent in the midportion and the placement of a 2.5 x 16 millimeter long Promus Premier drug eluting stent in the proximal portion post-dilated to 2.85 millimeters in the proximal portion. Coronary Bypass Grafting - (07/05/2003) MARTINEZ to LAD, Left radial to PDA of RCA. The PLVB and Ramus was felt to be too small for bypass by the surgeon. Cardiac Catheterization - (07/01/2003) 90%proximal LAD, 80 % mid LAD, 50 % mid circ, 70% proximal stenosis in moderate sized Ramus Intermedius. RCA with 30 % proximal, 50 % mid, and 80% distal invovling ostium of PDA and ostium of PLVB. LVEF 66 % with trace MR on Vgram. 06/29/[address] Hannon RFA RESULTS: CORONARY ARTERIOGRAPHY: A. Left coronary artery: 1. Left main - widely patent. 2. Left anterior descending artery - totally occluded for a short distance from its ostium. There was a posteriorly directed first diagonal branch, small in caliber, with diffuse disease with an area of 80% in the proximal portion of the diagonal branch and a 75% to 80% ostial narrowing. 3. Circumflex artery - a nondominant vessel supplying a thin first obtuse marginal branch followed by a second thin obtuse marginal branch. The artery then had a third obtuse marginal branch, which bifurcated. There was diffuse disease noted in the proximal portion with a stenosis of 65% seen followed by an area of 65% to 70%. Of note, there was collateralization seen to the distal right coronary artery, posterior left ventricular branches and body of the right coronary artery. B. Right coronary artery - known to be totally occluded from prior cardiac catheterizations. MARTINEZ GRAFT ARTERIOGRAPHY: - the MARTINEZ graft was widely patent with good anastomosis to a very thin left anterior descending artery with retrograde filling to a more proximal posteriorly directed diagonal branch. In general, the [place] vessels were extremely small in caliber. FREE PEDICLE RADIAL ARTERIOGRAPHY TO POSTERIOR DESCENDING ARTERY: The bypass was noted to have significant in-stent restenosis in the proximal portion with a stenosis as much as 85% to 90% seen in the main body of the prior stented area. Of note, there were 2 stents within this area already placed. More proximally, there was a narrowing of 65% within the stent area. The rest of the bypass showed no significant in-stent restenosis into the area of prior stent placement in the mid- to-distal portion. It attached to the posterior descending artery, which bifurcated. There was a 50% lesion seen within the posterior descending artery in its [id number] portion. INTERVENTION INTO PROXIMAL PORTION OF FREE PEDICLE RADIAL ARTERY GRAFT TO POSTERIOR DESCENDING ARTERY:Successful reduction of critical 90% to 95% stenosis and 65% stenosis using balloon angioplasty and placement of a 3.0 x 20 mm long Synergy drug- eluting stent post dilated to its highest 3.25 mm with JAE-3 flow and 10% residual stenosis. EKG Data: ekg 06/28/2019 1: NSR, ivcd, ischemic ST depression inferior and leads v4-v6 ekg 2: similar except ST cahnges are more downsloping and prominent ekg 3 06/29/2019: NSR, improvement of ST depression but has not returned to baseline from 06/25/2019 06/29/2019 ECG; Sinus rhythm rate [address] depression in lateral leads. ekg 07/01/2019; Sinus rhythm rate [address] depression comparable to prior ECG. Assessment/Plan #1 NSTEMI 06/29/2019 s/p PCI/Ramus. On 06/23/2019he underwent PTCA//MARGARET to radial artery graft to PDA. Troponin appears to be plateauing will repeat at noon today. Bilateral femoral access sites are intact, no hematoma. no thrill. Will continue medical therapy ASA 81/day, Plavix 75/day in addition to BBlocker, statin and imdur therapy. He is to follow up as previously directed on [address] Hannon. #2 h/o ESRD on H. he is to get dialysis this morning. He follows Dr. Byers #3 h/o HTN; now normotensive after medication changes. In the future avoid optimizing AV luc agents due to h/o relative bradycardia #4 h/o HLD; Goal LDL < 70 due to above #1. On statin therapy #5 Dispositon pending course. Will repeat troponin however, I clinically suspect it will start to trend down. Will follow however, I anticipate signing off case later today. Will d/w Dr. Patel. Attending: Karen Patel <Karen Patel - Last Filed: 07/01/19 10:12> Medications Active Medications: Acetaminophen (Tylenol Tab*) 650 mg PO Q4H PRN PRN Reason: PAIN - MILD Last Admin: 06/30/19 14:44 Dose: 650 mg Albuterol (Ventolin Hfa Inhaler*) 1 puff INH BID PRN PRN Reason: WHEEZING Amlodipine Besylate (Norvasc Tab*) 10 mg PO BID [facility] Last Admin: 07/01/19 09:11 Dose: 10 mg Ascorbic Acid (Vitamin C Tab*) 1,000 mg PO DAILY [facility] Last Admin: 07/01/19 09:09 Dose: 1,000 mg Aspirin (Aspirin 81 Mg Chew Tab*) 81 mg PO DAILY [facility] Last Admin: 07/01/19 09:09 Dose: 81 mg Atorvastatin Calcium (Lipitor*) 80 mg PO BEDTIME [facility] Last Admin: 06/30/19 21:14 Dose: 80 mg Buspirone HCl (Buspar Tab*) 10 mg PO BID [facility] Last Admin: 07/01/19 09:09 Dose: 10 mg Cholecalciferol (Vitamin D Tab*) 2,000 units PO QAM [facility] Last Admin: 07/01/19 09:10 Dose: 2,000 units Clopidogrel Bisulfate (Plavix Tab*) 75 mg PO DAILY [facility] Last Admin: 07/01/19 09:09 Dose: 75 mg Docusate Sodium (Colace Cap*) 100 mg PO BID PRN PRN Reason: CONSTIPATION Last Admin: 06/30/19 21:16 Dose: 100 mg Famotidine (Pepcid Tab*) 20 mg PO EVERY OTHER DAY [facility] Last Admin: 07/01/19 09:09 Dose: 20 mg Finasteride (Proscar Tab*) 5 mg PO QPM [facility] Last Admin: 06/30/19 16:52 Dose: 5 mg Fish Oil (Fish Oil (Nf)) 1,000 mg PO TID [facility] Last Admin: 07/01/19 09:11 Dose: 1,000 mg Furosemide (Lasix Tab*) 40 mg PO BID [facility] Last Admin: 07/01/19 09:09 Dose: 40 mg Hydralazine HCl (Apresoline Tab*) 50 mg PO TID [facility] Last Admin: 07/01/19 09:10 Dose: 50 mg Isosorbide Mononitrate (Imdur Er Tab*) 120 mg PO BID [facility] Last Admin: 07/01/19 09:08 Dose: 120 mg Lidocaine HCl (Lidocaine 2% Jelly*) 1 applic TOPICAL TID [facility] Last Admin: 07/01/19 09:08 Dose: 1 applic Lisinopril (Prinivil Tab*) 10 mg PO QAM [facility] Last Admin: 07/01/19 09:10 Dose: 10 mg Magnesium Oxide (Magox 400 Tab*) 400 mg PO QAM [facility] Last Admin: 07/01/19 09:09 Dose: 400 mg Metoprolol Succinate (Toprol Xl Tab*) 12.5 mg PO DAILY [facility] Last Admin: 07/01/19 09:12 Dose: 12.5 mg Minoxidil (Loniten Tab*) 2.5 mg PO BID [facility] Last Admin: 07/01/19 09:09 Dose: 2.5 mg Nitroglycerin (Nitroglycerin Tab 0.4 Mg*) 0.4 mg SL Q5M PRN PRN Reason: ANGINA Sertraline HCl (Zoloft*) 50 mg PO QAM [facility] Last Admin: 07/01/19 09:09 Dose: 50 mg Terazosin HCl (Hytrin Cap*) 5 mg PO BEDTIME [facility] Last Admin: 06/30/19 21:16 Dose: 5 mg Vitamin B Complex/Vitamin E (B Complex-50*) 1 tab PO QAM [facility] Last Admin: 07/01/19 09:11 Dose: 1 tab Objective Vital Signs: Temp Pulse Resp BP Pulse Ox 97.2 F 90 19 120/64 95 07/01/19 07:22 07/01/19 07:22 07/01/19 07:22 07/01/19 07:22 07/01/19 07:22 Laboratory Results: 06/30/19 05:43 07/01/19 06:18 INR (Anticoag Therapy) 0.95 (0.82-1.09) 06/29/19 00:14 APTT 42.9 seconds (26.0-38.0) H 06/29/19 11:28 Total Bilirubin 0.50 mg/dL (0.2-1.0) 06/29/19 00:14 AST 19 U/L (13-39) 06/29/19 00:14 ALT 21 U/L (7-52) 06/29/19 00:14 Alkaline Phosphatase 101 U/L (34-104) 06/29/19 00:14 Total Protein 7.3 g/dL (6.4-8.9) 06/29/19 00:14 Albumin 4.4 g/dL (3.2-5.2) 06/29/19 00:14 Globulin 2.9 g/dL (2-4) 06/29/19 00:14 Albumin/Globulin Ratio 1.5 (1-3) 06/29/19 00:14 06/29/19 06/29/19 06/29/19 00:14 02:39 05:45 Troponin I 0.06 H* 0.39 H* 1.60 H* 06/29/19 06/29/19 06/29/19 08:54 11:28 16:07 Troponin I 2.23 H* 2.92 H* 2.91 H* 06/29/19 06/30/19 06/30/19 21:50 09:31 17:30 Troponin I 3.62 H* 5.76 H* 6.07 H* 06/30/19 07/01/19 19:55 06:18 Troponin I 6.22 H* 6.35 H* Assessment/Plan Agree with above assessment and plan.
[2019-07-01] MEDS: Lidocaine 2% JELLY* 6 ML JELLY TOPICAL SCH ×2 (09:08→15:40)
[2019-07-01] MEDS: Isosorbide Mononitrate ER TAB* 60 MG PO SCH (09:08)
[2019-07-01] MEDS: Furosemide TAB* 40 MG PO SCH (09:09)
[2019-07-01] MEDS: Clopidogrel TAB* 75 MG PO SCH (09:09)
[2019-07-01] MEDS: MinoXIDil TAB* 2.5 MG TAB PO SCH (09:09)
[2019-07-01] MEDS: Ascorbic Acid TAB* 500 MG PO SCH (09:09)
[2019-07-01] MEDS: Sertraline* 50 MG TAB PO SCH (09:09)
[2019-07-01] MEDS: busPIRone TAB* 10 MG PO SCH (09:09)
[2019-07-01] MEDS: Famotidine TAB* 20 MG PO SCH (09:09)
[2019-07-01] MEDS: Magnesium Oxide TAB* 400 MG PO SCH (09:09)
[2019-07-01] MEDS: Aspirin 81 mg CHEW TAB* 81 MG TAB.CHEW PO SCH (09:09)
[2019-07-01] MEDS: Cholecalciferol TAB* 1000 UNITS PO SCH (09:10)
[2019-07-01] MEDS: Lisinopril TAB* 5 MG PO SCH (09:10)
[2019-07-01] MEDS: hydrALAZINE TAB* 25 MG PO SCH ×2 (09:10→15:40)
[2019-07-01] MEDS: CMC: OMEGA-3 FATTY ACIDS (NF) 1,000 MG CAP PO SCH ×2 (09:11→15:40)
[2019-07-01] MEDS: Vitamin B Complex TAB PO SCH (09:11)
[2019-07-01] MEDS: amLODIPine TAB* 5 MG PO SCH (09:11)
[2019-07-01] MEDS: Metoprolol Succinate XL TAB* 25 MG PO SCH (09:12)
[2019-07-01 12:59] LABS: Troponin I 5.87 ng/mL (<0.04)
[2019-07-01] MEDS ORDERED: Heparin DIALYSIS ONLY(*) 1,000 UNITS/ML VIAL DIALYSIS ONE (13:00)
[2019-07-01] MEDS ORDERED: EPOETIN ALFA-EPBX * 2,000 UNIT/ML VIAL IV ONE (13:00)
[2019-07-01] MEDS ORDERED: EPOETIN ALFA-EPBX * 3,000 UNIT/ML VIAL IV ONE (13:00)
[2019-07-01 15:47] VITALS: BP 110/60
--- NOTE | 2019-07-01 21:11 | DS ---
CC: Dr. Caban * DISCHARGE SUMMARY: DATE OF ADMISSION: 06/29/19 DATE OF DISCHARGE: 07/01/19 PRINCIPAL DISCHARGE DIAGNOSES: 1. Acute coronary syndrome. 2. Diffuse coronary artery disease. 3. Recent radial graft posterior descending artery restenosis percutaneous coronary intervention. SECONDARY DISCHARGE DIAGNOSES: 1. End-stage renal disease. 2. Hypertension. 3. Depression. 4. Chronic urinary retention. 5. History of stroke with some memory impairment. 6. History of patent foramen ovale closure. PHYSICAL EXAM AT THE TIME OF DISCHARGE: Temperature 98.5, heart rate 102, respiratory rate 12, pulse ox 97% on room air, blood pressure 110/60. General: Alert, well-appearing man who is comfortably ambulating in the hallways, in no distress. HEENT: Pupils equal, round, and reactive to light. Oral mucosa is moist. Neck: JVP to 10 cm. Chest: He is in a regular rate and rhythm. He has an old sternotomy incision. His lungs are clear bilaterally. Abdomen: Soft, nontender, nondistended. He has a Joe catheter in place. Extremities: His left groin site is clean with no hematoma. His distal pulses are 2+ bilaterally. He has a fistula in his right upper extremity. HOSPITAL COURSE BY PROBLEM: 1. Acute coronary syndrome with an NSTEMI. Mr. Watson was started on a heparin drip at the time of admission and went back to the clinical laboratory medical director on 06/29/[address] Patel. A drug-eluting stent was placed to the ramus via a left groin site. He tolerated the procedure well and was transferred to the ICU where his postop course was uneventful. He had no arrhythmias or further chest pain. His troponin peaked at 6.35. He was continued on his optimal medical management including dual antiplatelet therapy with aspirin and Plavix, metoprolol, rosuvastatin, Imdur, and lisinopril. He will follow up with Cardiology. 2. End-stage renal disease. He was continued on his Saturday, Saturday, Saturday schedule. He is euvolemic at the time of discharge and underwent his last session of hemodialysis this morning. 3. Hypertension. His home antihypertensives were not adjusted on this admission. 4. Chronic urinary retention. He presented with a Joe catheter in place. He was having pain at the insertion site. Dr. Fleming was consulted and recommended not discontinuing the Joe catheter, but keeping it in for another 3 weeks and applying lidocaine jelly to the insertion site. This provided some relief. He will follow up with Dr. Fleming at the time of discharge and he knows to call his office. CONDITION AT THE TIME OF DISCHARGE: Stable. DISPOSITION: He is being discharged to home in the care of his . MEDICATIONS AT DISCHARGE: 1. Finasteride 5 mg q.h.s. 2. Nitroglycerin 0.4 mg sublingual q.5 minutes p.r.n. chest pain. 3. Amlodipine 5 mg b.i.d. 4. Imdur 120 mg b.i.d. 5. Vitamin B 1 tab daily. 6. Mag-Ox 400 mg daily. 7. Cholecalciferol 2000 units daily. 8. Terazosin 5 mg q.h.s. 9. Sertraline 50 mg daily. 10. Minoxidil 2.5 mg b.i.d. 11. Furosemide 40 mg b.i.d. 12. Vitamin B, folic acid, and zinc daily. 13. Lisinopril 5 mg daily. 14. Plavix 75 mg daily. 15. Docusate 100 mg b.i.d. p.r.n. constipation. 16. Hydralazine 25 mg t.i.d. 17. Rosuvastatin 40 mg q.h.s. 18. Metoprolol 12.5 mg daily. 19. Vitamin C 1000 mg daily. 20. Ventolin 1 puff inhaled b.i.d. p.r.n. wheezing. 21. Pepcid 20 mg every other day. 22. [place]-3 1080 mg t.i.d. 23. BuSpar 10 mg b.i.d. 24. Tylenol with Codeine 1 tab q.8 p.r.n. pain. 25. Lidocaine gel 4% to the penis tip t.i.d. p.r.n. pain. 26. Aspirin 81mg daily [id number] #: [id number] [facility]
--- NOTE | 2019-07-02 15:00 | CATH ---
CC: Dr. Caban; Dr. Beltre; Dr. Byers STENT REPORT: DATE OF PROCEDURE: 06/29/19 PRIMARY CARE PHYSICIAN: Dr. Caban. WINDOWS ADMIN: Dr. Beltre. FOOD AND NUTRITION SUPERVISOR: Dr. Byers. PROCEDURES: Left common femoral artery access; free radial graft to RPDA angiogram; stent placement ramus, 2.75 x 30 drug-eluting stent; stent placement proximal circumflex, 3 x 12 Synergy drug-eluting stent; Angio-Seal left common femoral artery. HISTORY: A 64-year-old male with end-stage renal disease, remote bypass grafting. He has had recurri ng restenosis of stents in the free radial graft to the RPDA, most recently a week prior to the [facility] admission. He was readmitted with troponin-positive ACS. He underwent repeat angiography to rule out thrombotic occlusion of the recently placed stent, and if absent, for revascularization of the r amus as by exclusion this is the only other re-vascularizable territory. Recent nuclear imaging did not show ramus distribution ischemia but may be false negative. PROCEDURE ACCESS: Left common femoral artery sheath 6.5 [place]. DIAGNOSTIC CATHETERS: 6F MP for radial graft, 6F VL 3.5 guide for ramus intervention. The ramus was crossed with a PT Graphix wire, stented with an Orsiro 2.75 x 30 drug- eluting stent af ter predilatation with a 2.5 mm balloon. This stent was postdilated with 2.75 x 30 NC balloon to 18 atmospheres 44 seconds. There was plaque shift into the circumflex just beyond the ramus, which requ ired stenting using a second wire to deploy a 3 x 12 Synergy drug-eluting stent, followed by kissing balloon inflations in the ramus and circumflex stents. Because of incomplete expansion of the ramus stent, a 2.75 x 8 NC balloon inflated to 20 atmospheres for 30 seconds. PROCEDURAL MEDICATIONS: 1. IC nitroglycerin total 700 mcg. 2. Subcu lidocaine. 3. IV Versed. 4. IV fentanyl. 5. Cardene 100 mcg IV followed by an IV Cardene drip for hypertension. 6. Heparin total 17,000 units. HEMODYNAMICS: FA 180/66, final AO 134/72. ANGIOGRAPHY: Left common femoral sheath entry is in segment 2, there is no stenosis. Free radial graft to RPDA: It was injected selectively, the recently placed proximal stent is widely patent without any evidence of thrombus or stenosis, flow is JAE 3, the PDA is graft dependent. Di stal RCA is known to be occluded and fills by [id number] collaterals. Left main: The left main has distal mild irregularity, but no significant stenosis. LAD: The LAD is occluded proximally as before, there is collateral filling of a diagonal. Circumflex: The circumflex is large, not dominant with a moderate-sized ramus which has heavy calcif ication, proximal tubular 90% stenosis followed by a relatively long less severe stenosis before michael nstitution. The circumflex just beyond the ramus has a 40% stenosis, reconstitutes, supplies a large bifurcated marginal as well as a distal transatrial collateral to the distal RCA. After stent deployment in ramus, proximal circumflex just beyond the ramus, kissing balloon inflation and followed by high pressure postdilatation of the ramus stent, flow is JAE 3 in the ramus and cir cumflex, the origin of the ramus has mild irregularity but has no significant stenosis. The circumfl ex continuation has 20% stenosis with normal flow. CONCLUSION: 1. Successful complex bifurcation revascularization of ramus and proximal circumflex. 2. No angiographic evidence for mechanical or thrombotic issue, recently placed stent, free radial g raft to RPDA. 3. Successful Angio-Seal, left common femoral artery. 4. Hypertension, controlled with IV Cardene. [id number]/[facility] #: [id number]
== END 2019-07-01 17:28 | disposition home or self-care (01) | DRG 246 ==
LOC: ED 23:18 → MEDTELE 06-29 05:32 → ICU 06-29 15:38 → MEDTELE 06-30 09:19
PROVIDERS: ADMIT Internal Medicine; ATTEND Internal Medicine
PROC: B2111ZZ Fluoroscopy of Multiple Coronary Arteries using Low Osmolar Contrast (ICD-10-PCS; 2019-06-29)
PROC: B2131ZZ Fluoroscopy of Multiple Coronary Artery Bypass Grafts using Low Osmolar Contrast (ICD-10-PCS; 2019-06-29)
PROC: 027135Z Dilation of Coronary Artery, Two Arteries with Two Drug-eluting Intraluminal Devices, Percutaneous Approach (ICD-10-PCS; principal; 2019-06-29 12:15)
PROC: 5A1D70Z Performance of Urinary Filtration, Intermittent, Less than 6 Hours Per Day (ICD-10-PCS; 2019-06-30)
DX: I21.4 Non-ST elevation (NSTEMI) myocardial infarction (principal); N18.6 End stage renal disease; T82.858A Stenosis of other vascular prosthetic devices, implants and grafts, initial encounter; I12.0 Hypertensive chronic kidney disease with stage 5 chronic kidney disease or end stage renal disease; I13.2 Hypertensive heart and chronic kidney disease with heart failure and with stage 5 chronic kidney disease, or end stage renal disease; I10 Essential (primary) hypertension; R33.9 Retention of urine, unspecified; E78.5 Hyperlipidemia, unspecified; G47.30 Sleep apnea, unspecified; I25.10 Atherosclerotic heart disease of native coronary artery without angina pectoris; E11.22 Type 2 diabetes mellitus with diabetic chronic kidney disease; F32.9 Major depressive disorder, single episode, unspecified; N40.1 Benign prostatic hyperplasia with lower urinary tract symptoms; E87.70 Fluid overload, unspecified; E78.00 Pure hypercholesterolemia, unspecified; F41.9 Anxiety disorder, unspecified; M19.042 Primary osteoarthritis, left hand; M19.041 Primary osteoarthritis, right hand; M19.012 Primary osteoarthritis, left shoulder; M19.011 Primary osteoarthritis, right shoulder; K21.9 Gastro-esophageal reflux disease without esophagitis; J42 Unspecified chronic bronchitis; Z95.5 Presence of coronary angioplasty implant and graft; I69.311 Memory deficit following cerebral infarction; Z99.2 Dependence on renal dialysis; Z88.1 Allergy status to other antibiotic agents; Z91.040 Latex allergy status; Z82.49 Family history of ischemic heart disease and other diseases of the circulatory system; Z82.0 Family history of epilepsy and other diseases of the nervous system; Z72.89 Other problems related to lifestyle; Z88.2 Allergy status to sulfonamides; I25.2 Old myocardial infarction; Z86.73 Personal history of transient ischemic attack (TIA), and cerebral infarction without residual deficits; Z85.828 Personal history of other malignant neoplasm of skin; Z83.3 Family history of diabetes mellitus; Z79.02 Long term (current) use of antithrombotics/antiplatelets
CPT/HCPCS: 36415; 80048; 80053; 83735; 84484; 85025; 85347; 85610; 85730; 87641; 90935; 93005; 93455; 99156; 99157; 99285; A9270-GY; C1725; C1760; C1769; C1874; C1876; C1887; C9600-RI; C9601-LC; G0257; J1644; J2250; J2270; J2405; J3010; Q5106

== ENCOUNTER 2019-08-09 23:38 | Emergency (ER) | payer MEDICARE ==
--- OUTSIDE RECORDS SUMMARY | 2019-08-09 23:48 | XMS REPORT | Continuity of Care Document ---
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 Medicine Problems Active Problems Provider Date Chronic ischemic heart disease Aj Hannon M.D., [facility] Onset: 2013 Benign essential hypertension Aj Hannon M.D., [facility] Onset: 2013 Hyperlipidemia Aj Hannon M.D., [facility] Onset: 08/25/2014 Essential hypertension Aj Hannon M.D., [facility] Onset: 03/30/2015 Obstructive sleep apnea syndrome Kelly Guzman DNP, RN, [facility] Onset: 06/2016 Note: hypopneas, elevated RDI Hypersomnia Kelly Guzman DNP, RN, Onset: 06/01/2016 [facility] Atherosclerotic heart disease of Aj Hannon M.D., FAC [facility] Onset: 2016 ute coronary artery without angina pectoris Preoperative cardiovascular Aj Hannon M.D., PUJA [facility] Onset: 04/02/2018 examination Atherosclerosis of coronary artery Aj Hannon M.D., [facility] Onset: 07/2018 bypass graft(s), unspecified, with other forms of angina pectoris 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.D., [facility]A, FSCAI Onset: coronary artery bypass graft(s) with unspecified angina pectoris Social History Type Date Description Comments Sex Unknown Tobacco Use Start: Unknown Never Smoked Cigarettes Smoking Status Reviewed: 07/20/19 Never Smoked Cigarettes ETOH Use Occasionally consumes alcohol Tobacco Use Start: Unknown Patient has never smoked Recreational Drug Use Denies Drug Use Exercise Type/Frequency Exercises rarely Allergies, Adverse Reactions, Alerts Active Allergies Reaction Severity Comments Date Bactrim Rash 02/16/2014 Latex Urticaria 08/11/2018 Medications Active Medications SIG Qnty Indications Ordering Date Provider Rosuvastatin Calcium 1 by mouth every 90tabs Lg S. 07/20/2019 day Beltre, DO FACC 40mg Tablets Clopidogrel Bisulfate 1 by mouth every 90tabs Lg S. 07/20/2019 day Beltre, DO FACC 75mg Tablets Metoprolol Succinate 1 by mouth every 90tabs Lg S. 07/20/2019 ER day Beltre, DO FACC 25mg Tablets ER 24HR Hydralazine HCL Take one tablet by 270tabs I25.2 Lg SBrandon 07/20/2019 50mg mouth three times Beltre, DO FACC Tablets Minoxidil Take one by mouth Lg S. 07/13/2019 2.5mg Tablets twice daily Beltre, DO FACC Amlodipine Besylate 1 by mouth every Lg S. 07/13/2019 Am and 1/2 in the [facility], DO FACC 10mg Tablets evening Furosemide 1 by mouth every Aj Riddhi, 03/31/2018 40mg Tablets day Am /PM M.D., FACC, FSCAI Isosorbide 2 by mouth every 180tabs Lg SBrandon 10/31/2016 Mononitrate ER day ( taken in the [facility], DO FACC 120mg am) Tablets ER 24HR Nitrostat 1 tab sublingual 30tabs Aj Hannon, 09/09/2014 0.4mg Tablets as needed every 5 M.D., FACC, Sub mins x 3 FSCAI Lidocaine applied to poly Unknown Hydrochloride catheter as needed Gel Fish Oil 1 cap po three Unknown 1080mg times daily Eq Aspirin Adult Low Unknown Dose 81mg Tablets DR Lisinopril take 1 tablet by 90tabs Lg SBrandon 5mg Tablets mouth once daily Beltre, DO FACC Terazosin HCL 1 by mouth every Unknown 5mg day Capsules Famotidine 1 tab by mouth Unknown 20mg Tablets every other day Dialyvite 800-Zinc 15 1 by mouth every Unknown day 0.8mg Tablets Proair HFA as needed Narendra, 108(90Base) Grant N.P. mcg/Act Aerosol Ammonium Lactate apply once daily Unknown 12% Lotion Magnesium Oxide 1 by mouth every Unknown 400mg day Am Tablets Vitamin D3 1 by mouth every Unknown 2000Unit day Am Tablets Sertraline HCL 1 by mouth evening 90tabs Lg Michael 50mg with meal Alexsander, DO DANUTAC Tablets Pantoprazole Sodium 1 by mouth every Unknown day Am 40mg Tablets DR Buspirone HCL 1 tablet po twice Unknown 10mg daily Tablets Oxygen 2 l nc at bedtime Unknown Misc Vitamin C With Tabby 1 by mouth every Unknown Hips day Am 1000mg Tablets Super Vitamin B 1 by mouth every Unknown Complex day Am Tablets Finasteride 1 tab po daily PM Unknown 5mg Tablets History Medications Atorvastatin Calcium 1 by mouth every day 90tabs Lg Michael 07/20/2019 - Alexsander DO FACC 07/19/2019 40mg Tablets Colace 1 tab every 12 hours 90caps Lg Michael 07/20/2019 - 100mg Capsules as needed for Alexsander DO FACC 07/19/2019 constipation Amlodipine Besylate 1 by mouth am 1 by 30tabs Lg Michael 07/13/2019 - mouth pm Alexsander DO FACC 07/13/2019 5mg Tablets Hydralazine HCL 1 by mouth three I25.2 Lg Michael 07/13/2019 - 25mg times a day DO Alexsander FACC 07/20/2019 Tablets Immunizations CPT Code Status Date Vaccine Lot # [id number] Given 08/27/2016 Influenza Virus Vaccine, Quadrivalent, Split, Preservative Free 53756 Given 08/27/2016 Influenza Virus Vaccine, Quadrivalent, Split, Preservative Free Vital Signs Date Vital Result Comment 07/20/2019 4:06pm Height 72 inches 6'0" Weight 218.00 lb without shoes Heart Rate 84 /min left radial BP Systolic Sitting 170 mmHg Lue reg cuff BP Diastolic Sitting 72 mmHg Lue reg cuff BP Systolic Standing 162 mmHg Lue reg cuff asymptomatic BP Diastolic Standing 70 mmHg Lue reg cuff asymptomatic BMI (Body Mass Index) 29.6 kg/m2 Ejection Fraction 55-60% ECHO 02/17/19 03/04/2019 4:10pm Height 72 inches 6'0" Weight 229.50 lb w/o shoes Heart Rate 70 /min BP Systolic Sitting 160 mmHg Lue lg cuff BP Diastolic Sitting 70 mmHg Lue lg cuff Respiratory Rate 18 /min BMI (Body Mass Index) 31.1 kg/m2 Ejection Fraction 55-60% 02/17/19 echo [facility] Results Test Date Facility Test Result H/L Range Note Laboratory test 01/27/2019 [facility] Troponin-I 0.22 ng/mL Critical high <0.04 [address] (TnI) [place] [address] [phone] Laboratory test 01/27/2019 [facility] Troponin-I 0.16 ng/mL Critical high <0.04 [address] (TnI) [place] [address] [phone] 1 Result TnIDx:0.22 Called to [id number] at: 12:24:42 by:[id number] Read back by: [id number] Troponin-I testing on Plasma Separator Tubes (PST) has a known false positive rate of 0.20-0.40%. All positive troponins reflex immediate secondary confirmatory testing. 2 Result TnIDx:0.16 Called to [id number] at: 09:17:36 by:[id number] Read back by: [id number] Troponin-I testing on Plasma Separator Tubes (PST) has a known false positive rate of 0.20-0.40%. All positive troponins reflex immediate secondary confirmatory testing. Procedures Date Code Description Status 07/20/2019 50699 EKG Tracing & Interpretation Completed 06/29/2019 51159 Coronary Angiography With Catheter Placement In [facility] Completed Grafts 06/29/2019 78104 Revascularization Acute Total/Subtotal Occlusion Completed 06/29/2019 78074 Percutaneous Transcatheter Placement Of Intracoronary Completed Stent 06/22/2019 53854 Coronary Angiography With Catheter Placement In [place] Completed Grafts 06/22/2019 66817 Revascularization Coronary Artery Bypass Graft Completed 06/19/2019 91021 Treadmill Interp/Report Only Completed 06/19/2019 31263 Stress Test Supervsn W/Out I/R Completed 03/04/2019 56004 EKG Tracing & Interpretation Completed 02/18/2019 83811 EKG, Interpretation Only Completed 02/18/2019 08815 Hemodialysis, Repeated Evaluation Completed 02/17/2019 27119 EKG, Interpretation Only Completed 02/17/2019 68837 ECHO Transthorasic Realtime 2D W Doppler & Color Flow Hosp Completed 02/16/2019 08279 Coronary Angiography With Catheter Placement In [place] Completed Grafts 02/16/2019 46267 EKG, Interpretation Only Completed 02/16/2019 74931 Revascularization Coronary Artery Bypass Graft Completed 02/16/2019 40960 Hemodialysis, One Evaluation Completed 02/13/2019 70218 Fluoroscopic Guidance For Cent Completed 02/13/2019 45593 Ultrasound Guidance For Vascular Access Completed 02/13/2019 81497 Insertion Tunneled Cent Venous Cathr W/O Subcut Port/Pump Completed 5Yrs> 01/28/2019 63884 EKG, Interpretation Only Completed 01/27/2019 12445 EKG, Interpretation Only Completed 01/21/2019 34220 Treadmill Interp/Report Only Completed 01/21/2019 81902 Stress Test Supervsn W/Out I/R Completed Medical Devices Description No Information Available Encounters Type Date Location Provider Dx Diagnosis Office Visit 07/01/2019 [facility] Amy Epperson, I21.4 Non-St elevation 4:58p [place] [facility] [place] (Nstemi) myocardial infarction I12.0 Hyp chr kidney disease w stage 5 chr kidney disease or Esrd N18.6 End stage renal disease E78.5 Hyperlipidemia, unspecified Office Visit 06/30/2019 4:56p [facility] Amy Epperson, I21.4 Non- St elevation Of Handle Turner [place] [facility] [place] [place] (Nstemi) myocardial infarction I12.0 Hyp chr kidney disease w stage 5 chr kidney disease or Esrd N18.6 End stage renal disease E78.5 Hyperlipidemia, unspecified Office Visit 06/30/2019 2:37p [facility] Ashley I24.9 Acute ischemic Assoc,jere Bunn, DO heart disease, Hospitalists unspecified N40.0 Benign prostatic hyperplasia without lower urinry tract symp N18.6 End stage renal disease I10 Essential (primary) hypertension E87.70 Fluid overload, unspecified Office Visit 06/29/2019 [facility] Lg Michael I21.4 Non-St elevation 4:54p Of Handle Turner Alexsander, DO FACC (Nstemi) myocardial infarction Office Visit 06/29/2019 [facility] Bernadine Melo, R07.9 Chest pain, 2:37p Assocjere M.D. unspecified Hospitalists N18.6 End stage renal disease Z87.448 Personal history of other diseases of urinary system Z86.79 Personal history of other diseases of the circulatory system Office Visit 06/25/2019 4:52p [facility] Lg Michael R00.1 Bradycardia, Of Charley Beltre, DO unspecified FACC Office Visit 06/25/2019 11:07a [facility] R00.1 Bradycardia, Assoc,melani Palaciosified Hospitalists Sebastian I21.4 Non-St elevation (Nstemi) myocardial infarction N18.6 End stage renal disease M25.511 Pain in right shoulder N40.1 Benign prostatic hyperplasia with lower urinary tract symp R33.9 Retention of urine, unspecified I10 Essential (primary) hypertension Z86.31 Personal history of diabetic foot ulcer G47.33 Obstructive sleep apnea (adult) (pediatric) Office Visit 06/24/2019 [facility] R00.1 Bradycardia, 11:07a Assjere gurrola M.D. 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 unspecified Hospitalists I21.4 Non-St elevation (Nstemi) myocardial infarction N18.6 End stage renal disease M25.519 Pain in unspecified shoulder Office Visit 06/22/2019 11:06a [facility] I21.4 Non-St elevation Assjere gurrola MD (Nstemi) Hospitalists myocardial infarction N18.6 End stage renal disease M25.519 Pain in unspecified shoulder I10 Essential (primary) hypertension Office Visit 06/21/2019 11:06a [facility] I21.4 Non-St elevation jere Wood MD (Nstemi) Hospitalists myocardial infarction N18.6 End stage renal disease M25.519 Pain in unspecified shoulder I10 Essential (primary) hypertension Office Visit 06/20/2019 11:05a [facility] I21.4 Non-St elevation jere Wood MD (Nstemi) Hospitalists myocardial infarction N18.6 End stage renal disease M25.519 Pain in unspecified shoulder I10 Essential (primary) hypertension Office Visit 06/19/2019 11:05a [facility] I21.4 Non-St elevation jere Wood MD (Nstemi) Hospitalists myocardial infarction N18.6 End stage renal disease M25.519 Pain in unspecified shoulder Office Visit 06/18/2019 1:49p [facility] Karen Dc R07.9 Chest pain, Of Handle [place] [facility] [place] Jorge, unspecified FACC, FSCAI R79.89 Other specified abnormal findings of blood chemistry I12.9 Hypertensive chronic kidney disease w stg 1-4/unsp chr kdny N18.9 Chronic kidney disease, unspecified Office Visit 06/18/2019 1:31p Orthopedic Siva Cano M25.511 Pain in right Services Of Chintan Cortes shoulder Office Visit 06/18/2019 11:04a [facility] Bernadine Melo, M25.511 Pain in right Assoc,jere Cortes shoulder Hospitalists R07.9 Chest pain, unspecified N18.6 End stage renal disease Office Visit 03/04/2019 4:20p [facility] Lg Michael I25.2 Old myocardial Of [facility] Beltre, DO infarction [facility] I25.119 Athscl heart disease of ute cor art w unsp ang pctrs Z95.1 Presence of aortocoronary bypass graft N18.6 End stage renal disease E11.69 Type 2 diabetes mellitus with other specified complication E78.5 Hyperlipidemia, unspecified I10 Essential (primary) hypertension Office Visit 02/18/2019 9:45a [facility] Ashley I24.9 Acute ischemic Assoc,pc Oni, DO heart disease, Hospitalists unspecified N18.6 End stage renal disease I10 Essential (primary) hypertension E11.69 Type 2 diabetes mellitus with other specified complication R00.1 Bradycardia, unspecified Office Visit 02/18/2019 [facility] Aj Hannon, I25.700 Atherosclerosis of 4:00p Cardiology Sebastian, FAC, CABG, unsp, w Handle Turner [place] [facility] [place] [place] FSCAI unstable angina pectoris Z95.1 Presence of aortocoronary bypass graft N28.9 Disorder of kidney and ureter, unspecified Office Visit 02/17/2019 9:44a [facility] Ashley N18.5 Chronic kidney Assoc,jere Bunn, disease, stage Hospitalists 5 I20.0 Unstable angina E11.22 Type 2 diabetes mellitus w diabetic chronic kidney disease I10 Essential (primary) hypertension I45.5 Other specified heart block [facility] of 1:10p Cardiology Of Zhou, PACKING CHECKER CABG, unsp, w Handle [place] [facility] unstable angina pectoris I34.0 Nonrheumatic mitral (valve) insufficiency Z95.1 Presence of aortocoronary bypass graft I12.0 Hyp chr kidney disease w stage 5 chr kidney disease or Esrd N18.6 End stage renal disease Office Visit 02/16/2019 9:44a [facility] Ashley N18.5 Chronic kidney Assoc,pc Oni, DO disease, stage Hospitalists 5 I20.0 Unstable angina E11.22 Type 2 diabetes mellitus w diabetic chronic kidney disease I10 Essential (primary) hypertension I45.5 Other specified heart block Office Visit 02/16/2019 4:02p [facility] Aj Hannon, I21.4 Non- St elevation Of Handle [place] [facility] [place] Sebastian, FAC, (Nstemi) [facility] myocardial infarction Office Visit 02/15/2019 9:44a [facility] Siva I49.5 Sick sinus Assoc,jere Jon M.D. syndrome Hospitalists I20.0 Unstable angina N18.5 Chronic kidney disease, stage 5 E11.22 Type 2 diabetes mellitus w diabetic chronic kidney disease I10 Essential (primary) hypertension Office Visit 02/15/2019 3:57p [facility] Karen Dc I21.4 Non-St elevation Of Handle Turner [place] [facility] [place] Jorge, (Nstemi) [facility], [facility] myocardial infarction Office Visit 2019 9:43a [facility] Siva I49.5 Sick sinus Assoc,pc Sebastian Jon syndrome Hospitalists I20.0 Unstable angina N18.5 Chronic kidney disease, stage 5 E11.22 Type 2 diabetes mellitus w diabetic chronic kidney disease I10 Essential (primary) hypertension Office Visit 02/13/2019 9:43a [facility] Joann R07.9 Chest pain, Assoc,pc [facility], DO unspecified Hospitalists I10 Essential (primary) hypertension E11.9 Type 2 diabetes mellitus without complications R42 Dizziness and giddiness Office Visit 01/30/2019 11:14a [facility] Karen Dc I21.4 Non-St elevation Of Handle Turner [place] [facility] [place] Jorge, (Nstemi) [facility], [facility] myocardial infarction I50.9 Heart failure, unspecified Office Visit 01/30/2019 10:07a [facility] Danielle N18.6 End stage Assoc,pc Radha Pérez, renal disease Hospitalists [employer]ING CHECKER E87.70 Fluid overload, unspecified N18.4 Chronic kidney disease, stage 4 (severe) G89.4 Chronic pain syndrome I21.4 Non-St elevation (Nstemi) myocardial infarction R07.9 Chest pain, unspecified I25.10 Athscl heart disease of ute coronary artery w/o ang pctrs E11.22 Type 2 diabetes mellitus w diabetic chronic kidney disease Office Visit 01/29/2019 11:13a [facility] Karen Dc I21.4 Non-St elevation Of Handle Turner [place] [facility] [place] Jorge, (Nstemi) [facility] myocardial infarction I50.9 Heart failure, unspecified Office Visit 01/29/2019 [facility] E87.70 Fluid overload, 10:07a Assoc,jere Pérez, unspecified Hospitalists PACKING CHECKER D64.9 Anemia, unspecified R07.9 Chest pain, unspecified N18.4 Chronic kidney disease, stage 4 (severe) I10 Essential (primary) hypertension I21.4 Non-St elevation (Nstemi) myocardial infarction E11.22 Type 2 diabetes mellitus w diabetic chronic kidney disease I25.10 Athscl heart disease of ute coronary artery w/o ang pctrs Office Visit 01/28/2019 11:12a [facility] Karen Dc I21.4 Non-St elevation Of Handle Turner [place] [facility] [place] Jorge, (Nstemi) FACC, FSCAI myocardial infarction I50.9 Heart failure, unspecified Office Visit 01/28/2019 [facility] E87.70 Fluid overload, 10:06a Assoc,jere Pérez, unspecified Hospitalists PACKING CHECKER D64.9 Anemia, unspecified R07.9 Chest pain, unspecified N18.4 Chronic kidney disease, stage 4 (severe) I10 Essential (primary) hypertension I21.4 Non-St elevation (Nstemi) myocardial infarction E11.22 Type 2 diabetes mellitus w diabetic chronic kidney disease I25.10 Athscl heart disease of ute coronary artery w/o ang pctrs Office Visit 01/27/2019 2:38p [facility] Karen Dc I21.4 Non-St elevation Of Handle Turner [place] [facility] [place] [place] Jorge, (Nstemi) FAC, FSCAI myocardial infarction I50.9 Heart failure, unspecified Office Visit 01/27/2019 10:05a [facility] Toñito Palafox MD N18.6 End stage renal Assoc,pc disease Hospitalists I25.10 Athscl heart disease of ute coronary artery w/o ang pctrs I21.4 Non-St elevation (Nstemi) myocardial infarction R79.89 Other specified abnormal findings of blood chemistry Office Visit 01/24/2019 3:20p [facility] Aj Hannon, I21.4 Non- St elevation Of Handle [place] [facility] [place] M.Sg, FAC, (Nstemi) FSCAI myocardial infarction Office Visit 01/24/2019 10:31a [facility] Gab I21.4 Non-St elevation Assoc,jere Holder, (Nstemi) Hospitalists MJennifer myocardial infarction D64.9 Anemia, unspecified N40.0 Benign prostatic hyperplasia without lower urinry tract symp N18.4 Chronic kidney disease, stage 4 (severe) E11.22 Type 2 diabetes mellitus w diabetic chronic kidney disease I10 Essential (primary) hypertension I25.10 Athscl heart disease of ute coronary artery w/o ang pctrs E78.5 Hyperlipidemia, unspecified Office Visit 01/23/2019 3:06p [facility] Aj Hannon, I21.4 Non- St elevation Of Handle Turner AT [facility].D, [facility], (Nstemi) [facility] myocardial infarction Office Visit 01/23/2019 10:31a [facility] D64.9 Anemia, Assjere gurrola unspecified Hospitalists MJennifer I21.4 Non-St elevation (Nstemi) myocardial infarction N18.4 Chronic kidney disease, stage 4 (severe) I10 Essential (primary) hypertension E11.22 Type 2 diabetes mellitus w diabetic chronic kidney disease N40.0 Benign prostatic hyperplasia without lower urinry tract symp I63.9 Cerebral infarction, unspecified E78.5 Hyperlipidemia, unspecified Office Visit 01/22/2019 [facility] I21.4 Non-St elevation 10:30a jere Wood M.D. (Nstemi) Hospitalists myocardial infarction N18.4 Chronic kidney disease, stage 4 (severe) I10 Essential (primary) hypertension E11.22 Type 2 diabetes mellitus w diabetic chronic kidney disease N40.0 Benign prostatic hyperplasia without lower urinry tract symp I63.9 Cerebral infarction, unspecified E78.5 Hyperlipidemia, unspecified Office Visit 01/22/2019 4:42p [facility] Aj Hannon, I21.4 Non- St elevation Of Handle Turner AT [facility].D, [facility], (Nstemi) [facility] Office Visit 01/21/2019 10:30a [facility] I21.4 Non-St elevation Assjere gurrola (Nstemi) Hospitalists MJennifer myocardial infarction N18.4 Chronic kidney disease, stage 4 (severe) I10 Essential (primary) hypertension E11.9 Type 2 diabetes mellitus without complications Office Visit 01/21/2019 2:17p [facility] Aj Hannon, R07.9 Chest pain, Of Handle Turner [place] [facility] [place] Sebastian, FACC, unspecified FSCAI I21.4 Non-St elevation (Nstemi) myocardial infarction Assessments Date Code Description Provider 07/20/2019 I25.2 Old myocardial infarction Lg Beltre, DO FACC 07/01/2019 I21.4 Non-St elevation (Nstemi) myocardial Amy Thuman, PACKING CHECKER infarction 07/01/2019 I12.0 Hypertensive chronic kidney disease Amy Thuman, PACKING CHECKER with stage 5 chronic kidney disease or end stage renal disease 07/01/2019 N18.6 End stage renal disease Amy Thuman, PACKING CHECKER 07/01/2019 E78.5 Hyperlipidemia, unspecified Amy Thuman, PACKING CHECKER 06/30/2019 I21.4 Non-St elevation (Nstemi) myocardial Amy Thuman, PACKING CHECKER infarction 06/30/2019 I12.0 Hypertensive chronic kidney disease Amy Thuman, PACKING CHECKER with stage 5 chronic kidney disease or end stage renal disease 06/30/2019 N18.6 End stage renal disease Amy Thuman, PACKING CHECKER 06/30/2019 E78.5 Hyperlipidemia, unspecified Amy Thuman, PACKING CHECKER 06/30/2019 I24.9 Acute ischemic heart disease, Ashley Bunn, DO unspecified 06/30/2019 N40.0 Benign prostatic hyperplasia without Ashley Oni, DO lower urinary tract symptoms 06/30/2019 N18.6 End stage renal disease Ashley Bunn, DO 06/30/2019 I10 Essential (primary) hypertension Ashley Bunn, DO 06/30/2019 E87.70 Fluid overload, unspecified Ashley Senner, DO 06/29/2019 I25.10 Atherosclerotic heart disease of Karen Patel MD, PUJA, ute coronary artery without angina FSCAI pectoris 06/29/2019 I21.4 Non-St elevation (Nstemi) myocardial Karen Patel MD, PUJA, infarction FSCAI 06/29/2019 Z95.1 Presence of aortocoronary bypass Karen Patel MD, PUJA , graft FSCAI 06/29/2019 I21.4 Non-St elevation (Nstemi) myocardial Lg Beltre, DO FACC infarction 06/29/2019 R07.9 Chest pain, unspecified Bernadine Melo M.D. 06/29/2019 N18.6 End stage renal disease Bernadine Melo M.D. 06/29/2019 Z87.448 Personal history of other diseases of Bernadine Melo M.D. urinary system 06/29/2019 Z86.79 Personal history of other diseases of Bernadine Melo M.D. the circulatory system 06/25/2019 R00.1 Bradycardia, unspecified Lg Beltre, DO [facility] 06/25/2019 R00.1 Bradycardia, unspecified Gab Holder M.D. 06/25/2019 I21.4 Non-St elevation (Nstemi) myocardial Gab Holder M.D. infarction 06/25/2019 N18.6 End stage renal disease Gab Holder M.D. 06/25/2019 M25.511 Pain in right shoulder Gab Holder M.D. 06/25/2019 N40.1 Benign prostatic hyperplasia with Gab Holder M.D. lower urinary tract symptoms 06/25/2019 R33.9 Retention of urine, unspecmalini Holder M.D. 06/25/2019 I10 Essential (primary) hypertension Gab Holder M.D. 06/25/2019 Z86.31 Personal history of diabetic foot Gab Holder M.D. ulcer 06/25/2019 G47.33 Obstructive sleep apnea (adult) Gab Holder M.D. (pediatric) 06/24/2019 R00.1 Bradycardia, unspecified Gab Holder M.D. 06/24/2019 I21.4 Non-St elevation (Nstemi) myocardial Gab Holder M.D. infarction 06/24/2019 N18.6 End stage renal disease Gab Holder M.D. 06/24/2019 M25.519 Pain in unspecified shoulder Gab Holder M.D. 06/24/2019 N40.0 Benign prostatic hyperplasia without Gab Moussallem, M.D. lower urinary tract symptoms 06/24/2019 I10 Essential (primary) hypertension Gab Holder M.D. 06/24/2019 R33.9 Retention of urine, unspecified Gab Holder M.D. 06/23/2019 I21.4 Non-St elevation (Nstemi) myocardial Aj Hannon M.D., [facility], infarction [facility] 06/23/2019 I25.810 Atherosclerosis of coronary artery Aj Hannon M.D., [facility], bypass graft(s) without angina [facility] pectoris 06/23/2019 Z95.1 Presence of aortocoronary bypass [facility] 06/23/2019 R00.1 Bradycardia, unspecified Gab Holder M.D. 06/23/2019 I21.4 Non-St elevation (Nstemi) myocardial Gab Holder M.D. infarction 06/23/2019 N18.6 End stage renal disease Gab Holder M.D. 06/23/2019 M25.519 Pain in unspecified shoulder Gab Holder M.D. 06/22/2019 I25.810 Atherosclerosis of coronary artery [facility]., [facility] graft(s) without angina [facility] pectoris 06/22/2019 Z95.1 Presence of aortocoronary bypass Aj Hannon M.D., [facility], graft [facility] 06/22/2019 I21.4 Non-St elevation (Nstemi) myocardial Dominique Meraz MD infarction 06/22/2019 N18.6 End stage renal disease Dominique Meraz MD 06/22/2019 M25.519 Pain in unspecified shoulder Dominique Meraz MD 06/22/2019 I10 Essential (primary) hypertension Dominique Meraz MD 06/21/2019 I21.4 Non-St elevation (Nstemi) myocardial Dominique Meraz MD infarction 06/21/2019 N18.6 End stage renal disease Dominique Meraz MD 06/21/2019 M25.519 Pain in unspecified shoulder Dominique Meraz MD 06/21/2019 I10 Essential (primary) hypertension Dominique Meraz MD 06/20/2019 I21.4 Non-St elevation (Nstemi) myocardial Dominique Meraz MD infarction 06/20/2019 N18.6 End stage renal disease Dominique Meraz MD 06/20/2019 M25.519 Pain in unspecified shoulder Dominique Meraz MD 06/20/2019 I10 Essential (primary) hypertension Dominique Meraz MD 06/19/2019 R07.9 Chest pain, unspecified Karen Patel MD, [facility], [facility] 06/19/2019 I21.4 Non-St elevation (Nstemi) myocardial Dominique Meraz MD infarction 06/19/2019 N18.6 End stage renal disease Dominique Meraz MD 06/19/2019 M25.519 Pain in unspecified shoulder Dominique Meraz MD 06/18/2019 M25.511 Pain in right shoulder Siva Cano M.D. 06/18/2019 R07.9 Chest pain, unspecified Karen Patel MD, [facility], [facility] 06/18/2019 R79.89 Other specified abnormal findings of Karen Patel MD , FAC, blood chemistry [facility] 06/18/2019 I12.9 Hypertensive chronic kidney disease Karen Patel MD, [facility], with stage 1 through stage 4 chronic [facility] kidney disease, or unspecified chronic kidney disease 06/18/2019 N18.9 Chronic kidney disease, unspecified Karen Patel MD, [facility], [facility] 06/18/2019 M25.511 Pain in right shoulder Bernadine Melo M.D. 06/18/2019 R07.9 Chest pain, unspecified Bernadine Melo M.D. 06/18/2019 N18.6 End stage renal disease Bernadine Melo M.D. 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, unsp, w Aj Hannon M.D., [facility], unstable angina pectoris [facility] 02/18/2019 I10 Essential (primary) hypertension Ashley Senner, DO 02/18/2019 Z95.1 Presence of aortocoronary bypass Aj Hannon M.D., [facility], graft [facility] 02/18/2019 E11.69 Type 2 diabetes mellitus with other Ashley Senpeterson, DO specified complication 02/18/2019 N28.9 Disorder of kidney and ureter, Aj Hannon M.D., [facility], unspecified [facility] 02/18/2019 R00.1 Bradycardia, unspecified Ashley Senner, DO 02/17/2019 R94.31 Abnormal electrocardiogram [ECG] Golden Oshea M.D. 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 02/15/2019 I21.4 Non-St elevation (Nstemi) myocardial Karen Patel MD, [facility], infarction [facility] 02/15/2019 I20.0 Unstable angina Siva Jon M.D. 02/15/2019 N18.5 Chronic kidney disease, stage 5 Siva Jon M.D. 02/15/2019 E11.22 Type 2 diabetes mellitus w diabetic Siva Jon M.D. chronic kidney disease 02/15/2019 I10 Essential (primary) hypertension Siva Jon M.D. 2019 I49.5 Sick sinus syndrome Siva Jon M.D. 2019 I20.0 Unstable angina Siva Jon M.D. 2019 N18.5 Chronic kidney disease, stage 5 Siva Jon M.D. 2019 E11.22 Type 2 diabetes mellitus w diabetic Siva Jon M.D. chronic kidney disease 2019 I10 Essential (primary) hypertension Siva Jon M.D. 02/13/2019 R07.9 Chest pain, unspecified Joann Menchaca, DO 02/13/2019 N17.8 Other acute kidney failure Rd Carter M.D. 02/13/2019 I10 Essential (primary) hypertension Joann Menchaca, DO 02/13/2019 E11.9 Type 2 diabetes mellitus without Joann Menchaca, DO complications 02/13/2019 R42 Dizziness and giddiness Joann Menchaca, DO 01/30/2019 N18.6 End stage renal disease Danielle Pérez, [employer] 01/30/2019 I21.4 Non-St elevation (Nstemi) myocardial Karen Patel MD, [facility], infarction [facility] 01/30/2019 E87.70 Fluid overload, unspecified Danielle Pérez, [employer] 01/30/2019 I50.9 Heart failure, unspecified Karen Patel MD, FACC, [facility] 01/30/2019 N18.4 Chronic kidney disease, stage 4 Danielle Pérez NP (severe) 01/30/2019 G89.4 Chronic pain syndrome Danielle Pérez, [employer] 01/30/2019 I21.4 Non-St elevation (Nstemi) myocardial Danielle Pérez NP infarction 01/30/2019 R07.9 Chest pain, unspecified Danielle Pérez, [employer] 01/30/2019 I25.10 Athscl heart disease of ute Danielle Pérez NP coronary artery w/o ang pctrs 01/30/2019 E11.22 Type 2 diabetes mellitus w diabetic Danielle Pérez , [employer] chronic kidney disease 01/29/2019 I21.4 Non-St elevation (Nstemi) myocardial Karen Patel MD, [facility], infarction [facility] 01/29/2019 I50.9 Heart failure, unspecified Karen Patel MD, PUJA, [facility] 01/29/2019 E87.70 Fluid overload, unspecified Danielle Wuo, [employer] 01/29/2019 D64.9 Anemia, unspecified Danielle Wuo, [employer] 01/29/2019 R07.9 Chest pain, unspecified Danielle Wuo, [employer] 01/29/2019 N18.4 Chronic kidney disease, stage 4 Danielle Pérez, [employer] (severe) 01/29/2019 I10 Essential (primary) hypertension Danielle Wuo, [employer] 01/29/2019 I21.4 Non-St elevation (Nstemi) myocardial Danielle Pérez , [employer] infarction 01/29/2019 E11.22 Type 2 diabetes mellitus w diabetic Danielle Pérez , [employer] chronic kidney disease 01/29/2019 I25.10 Athscl heart disease of ute Danielle Pérez, [employer] coronary artery w/o ang pctrs 01/28/2019 R94.31 Abnormal electrocardiogram [ECG] Micheal Salvador M.D. [EKG] 01/28/2019 I21.4 Non-St elevation (Nstemi) myocardial Karen Patel MD, [facility], infarction [facility] 01/28/2019 I50.9 Heart failure, unspecified Karen Patel MD, FACC, [facility] 01/28/2019 E87.70 Fluid overload, unspecified Danielle Wuo, [employer] 01/28/2019 D64.9 Anemia, unspecified Danielle Garcia Doto, [employer] 01/28/2019 R07.9 Chest pain, unspecified Danielle Wuo, [employer] 01/28/2019 N18.4 Chronic kidney disease, stage 4 Danielle Pérez, [employer] (severe) 01/28/2019 I10 Essential (primary) hypertension Danielle Garcia Doto, [employer] 01/28/2019 I21.4 Non-St elevation (Nstemi) myocardial Danielle Pérez NP infarction 01/28/2019 E11.22 Type 2 diabetes mellitus w diabetic Danielle Pérez NP chronic kidney disease 01/28/2019 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 [EKG] 01/27/2019 I21.4 Non-St elevation (Nstemi) myocardial Karen Patel MD, [facility], infarction [facility] 01/27/2019 I50.9 Heart failure, unspecified Karen Patel MD, [facility], [facility] 01/27/2019 N18.6 End stage renal disease Toñito Palafox MD 01/27/2019 I25.10 Athscl heart disease of ute Toñito Palafox MD coronary artery w/o ang pctrs 01/27/2019 I21.4 Non-St elevation (Nstemi) myocardial Toñito Palafox MD infarction 01/27/2019 R79.89 Other specified abnormal findings of Toñito Palafox MD blood chemistry 01/24/2019 I21.4 Non-St elevation (Nstemi) myocardial Aj Hannon M.D., [facility], infarction [facility] 01/24/2019 I21.4 Non-St elevation (Nstemi) myocardial Gab Holder M.D. infarction 01/24/2019 D64.9 Anemia, unspecified Gab Holder M.D. 01/24/2019 N40.0 Benign prostatic hyperplasia without Gab Holder M.D. lower urinry tract symp 01/24/2019 N18.4 Chronic kidney disease, stage 4 Gab Holder M.D. (severe) 01/24/2019 E11.22 Type 2 diabetes mellitus w diabetic Gab Holder M.D. chronic kidney disease 01/24/2019 I10 Essential (primary) hypertension Gab Holder M.D. 01/24/2019 I25.10 Athscl heart disease of ute Gab Holder M.D. coronary artery w/o ang pctrs 01/24/2019 E78.5 Hyperlipidemia, unspecified Gab Holder M.D. 01/23/2019 I21.4 Non-St elevation (Nstemi) myocardial Aj Hannon M.D., [facility], infarction [facility] 01/23/2019 D64.9 Anemia, unspecified Gab Holder M.D. 01/23/2019 I21.4 Non-St elevation (Nstemi) myocardial Gab Holder M.D. infarction 01/23/2019 N18.4 Chronic kidney disease, stage 4 Gab Holder M.D. (severe) 01/23/2019 I10 Essential (primary) hypertension Gab Holder M.D. 01/23/2019 E11.22 Type 2 diabetes mellitus w diabetic Gab Holder M.D. chronic kidney disease 01/23/2019 N40.0 Benign prostatic hyperplasia without Gab Sebastian Holder lower urinry tract symp 01/23/2019 I63.9 Cerebral infarction, unspecified Gab Glory M.DBrandon 01/23/2019 E78.5 Hyperlipidemia, unspecified Gab Holder M.D. 01/22/2019 I21.4 Non-St elevation (Nstemi) myocardial Aj Hannon M.D., [facility], infarction [facility] 01/22/2019 I21.4 Non-St elevation (Nstemi) myocardial Gab Holder M.D. infarction 01/22/2019 N18.4 Chronic kidney disease, stage 4 Gab Holder M.D. (severe) 01/22/2019 I10 Essential (primary) hypertension Gab Holder M.D. 01/22/2019 E11.22 Type 2 diabetes mellitus w diabetic Gab Holder M.D. chronic kidney disease 01/22/2019 N40.0 Benign prostatic hyperplasia without Gab Glory MJennifer lower urinry tract symp 01/22/2019 I63.9 Cerebral infarction, unspecified Gab Holder M.D. 01/22/2019 E78.5 Hyperlipidemia, unspecified Gab Sebastian Holder 01/21/2019 R07.9 Chest pain, unspecified Aj Hannon M.D., [facility], [facility] 01/21/2019 I21.4 Non-St elevation (Nstemi) myocardial Aj Hannon M.D., [facility], infarction [facility] 01/21/2019 I21.4 Non-St elevation (Nstemi) myocardial Gab Holder M.D. infarction 01/21/2019 N18.4 Chronic kidney disease, stage 4 Gab Holder M.D. (severe) 01/21/2019 I10 Essential (primary) hypertension Gab Holder M.D. 01/21/2019 E11.9 Type 2 diabetes mellitus without Gab Holder M.D. complications Plan of Treatment Future Appointment(s):07/23/2019 3:00 pm - Rere Salazar MD at [facility]07/20/2019 - Lg Beltre DO FACCI25.2 Old myocardial infarctionNew Medication:Hydralazine HCL 50 mg - Take one tablet by mouth three timesComments:Blood pressure still remains elevatedIncrease hydralazine from 25 to 50 mg three times a day.Follow up:f/u 6 months Functional Status Description No Information Available Mental Status Description No Information Available Referrals Description No Information Available
--- OUTSIDE RECORDS SUMMARY | 2019-08-09 23:48 | XMS REPORT | Continuity of Care Document ---
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 Medicine Problems Active Problems Provider Date Chronic ischemic heart disease Aj Hannon M.D., PUJA [facility] Onset: 2013 Benign essential hypertension Aj Hannon M.D., DANUTA [facility] Onset: 2013 Hyperlipidemia Aj Hannon M.D., FACGIOVANA Onset: 08/25/2014 Essential hypertension Aj Hannon M.D., [facility] Onset: 03/30/2015 Obstructive sleep apnea syndrome Kelly Guzman DNP, RN, [facility] Onset: 06/2016 Note: hypopneas, elevated RDI Hypersomnia Kelly Guzman DNP RN, Onset: 06/01/2016 [facility] Atherosclerotic heart disease of Aj Hannon M.D., GIOVANA LUO Onset: 2016 [place] coronary artery without angina pectoris Preoperative cardiovascular Aj Hannon M.D., FACC, FSCAI Onset: 04/02/2018 examination Atherosclerosis of coronary artery Aj Hannon M.D., FACC, FSCAI Onset: 07/2018 bypass graft(s), unspecified, with other forms of angina pectoris 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.D., GIOVANA LUO Onset: coronary artery bypass graft(s) with unspecified angina pectoris Social History Type Date Description Comments Sex Unknown Tobacco Use Start: Unknown Never Smoked Cigarettes Smoking Status Reviewed: 07/23/19 Never Smoked Cigarettes ETOH Use Occasionally consumes alcohol Tobacco Use Start: Unknown Patient has never smoked Recreational Drug Use Denies Drug Use Exercise Type/Frequency Exercises rarely Allergies, Adverse Reactions, Alerts Active Allergies Reaction Severity Comments Date Bactrim Rash 02/16/2014 Latex Urticaria 08/11/2018 Medications Active Medications SIG Qnty Indications Ordering Date Provider Diclofenac Sodium apply 1 gram 3-4 200gm M75.41 Rere Salazar, 07/23/2019 1% times a day to MD Leyva painful area Rosuvastatin Calcium 1 by mouth every 90tabs Lg S. 07/20/2019 day Beltre, DO FACC 40mg Tablets Clopidogrel Bisulfate 1 by mouth every 90tabs Lg S. 07/20/2019 day Beltre, DO FACC 75mg Tablets Metoprolol Succinate 1 by mouth every 90tabs Lg S. 07/20/2019 ER day Beltre, DO FACC 25mg Tablets ER 24HR Hydralazine HCL Take one tablet by 270tabs I25.2 Lg S. 07/20/2019 50mg mouth three times Beltre, DO FACC Tablets Minoxidil Take one by mouth Lg S. 07/13/2019 2.5mg Tablets twice daily [facility], DO FACC Amlodipine Besylate 1 by mouth every Lg S. 07/13/2019 Am and 1/2 in the [facility], DO FACC 10mg Tablets evening Furosemide 1 by mouth every Aj Hannon, 03/31/2018 40mg Tablets day Am /PM M.D., FACC, FSCAI Isosorbide 2 by mouth every 180tabs Lg S. 10/31/2016 Mononitrate ER day ( taken in the [facility], DO FACC 120mg am) Tablets ER 24HR Nitrostat 1 tab sublingual 30tabs Aj Hannon, 09/09/2014 0.4mg Tablets as needed every 5 M.D., FACC, Sub mins x 3 FSCAI Ammonium Lactate apply once daily Unknown 12% Lotion Proair HFA as needed Narendra, 108(90Base) Malachi Burns.Sandra. mcg/Act Aerosol Dialyvite 800-Zinc 15 1 by mouth every Unknown day 0.8mg Tablets Famotidine 1 tab by mouth Unknown 20mg Tablets every other day Terazosin HCL 1 by mouth every Unknown 5mg day Capsules Lisinopril take 1 tablet by 90tabs Lg SBrandon 5mg Tablets mouth once daily Alexsander DO DANUTAC Eq Aspirin Adult Low Unknown Dose 81mg Tablets DR Fish Oil 1 cap po three Unknown 1080mg times daily Lidocaine applied to poly Unknown Hydrochloride catheter as needed Gel Magnesium Oxide 1 by mouth every Unknown 400mg day Am Tablets Vitamin D3 1 by mouth every Unknown 2000Unit day Am Tablets Sertraline HCL 1 by mouth evening 90tabs Lg SBrandon 50mg with meal Alexsander DO DANUTAC Tablets Pantoprazole Sodium 1 by mouth every Unknown day Am 40mg Tablets Buspirone HCL 1 tablet po twice Unknown 10mg daily Tablets Oxygen 2 l nc at bedtime Unknown Mis Vitamin C With Tabby 1 by mouth every Unknown Hips day Am 1000mg Tablets Super Vitamin B 1 by mouth every Unknown Complex day Am Tablets Finasteride 1 tab po daily PM Unknown 5mg Tablets History Medications Atorvastatin Calcium 1 by mouth every day 90tabs Lg SBrandon 07/20/2019 - Alexsander DO [facility] 07/19/2019 40mg Tablets Colace 1 tab every 12 hours 90caps Lg SBrandon 07/20/2019 - 100mg Capsules as needed for Alexsander DO FAC 07/19/2019 constipation Amlodipine Besylate 1 by mouth am 1 by 30tabs Lg S. 07/13/2019 - mouth pm Alexsander DO FAC 07/13/2019 5mg Tablets Hydralazine HCL 1 by mouth three I25.2 Lg SBrandon 07/13/2019 - 25mg times a day Alexsander DO FAC 07/20/2019 Tablets Immunizations CPT Code Status Date Vaccine Lot # [id number] Given 08/27/2016 Influenza Virus Vaccine, Quadrivalent, Split, Preservative Free 19457 Given 08/27/2016 Influenza Virus Vaccine, Quadrivalent, Split, Preservative Free Vital Signs Date Vital Result Comment 07/23/2019 3:30pm Height 72 inches 6'0" Weight 218.00 lb Heart Rate 74 /min BP Systolic 138 mmHg BP Diastolic 70 mmHg Body Temperature 98.6 F Pain Level 8 BMI (Body Mass Index) 29.6 kg/m2 07/20/2019 4:06pm Height 72 inches 6'0" Weight 218.00 lb without shoes Heart Rate 84 /min left radial BP Systolic Sitting 170 mmHg Lue reg cuff BP Diastolic Sitting 72 mmHg Lue reg cuff BP Systolic Standing 162 mmHg Lue reg cuff asymptomatic BP Diastolic Standing 70 mmHg Lue reg cuff asymptomatic BMI (Body Mass Index) 29.6 kg/m2 Ejection Fraction 55-60% ECHO 02/17/19 Results Test Date Facility Test Result H/L Range Note Laboratory test 01/27/2019 [facility] Troponin-I 0.22 ng/mL Critical high <0.04 [address] (TnI) [place] [address] [phone] Laboratory test 01/27/2019 [facility] Troponin-I 0.16 ng/mL Critical high <0.[address] (TnI) [place] [address] [phone] 1 Result TnIDx:0.22 Called to [id number] at: 12:24:42 by:[id number] Read back by: [id number] Troponin-I testing on Plasma Separator Tubes (PST) has a known false positive rate of 0.20-0.40%. All positive troponins reflex immediate secondary confirmatory testing. 2 Result TnIDx:0.16 Called to [id number] at: 09:17:36 by:[id number] Read back by: [id number] Troponin-I testing on Plasma Separator Tubes (PST) has a known false positive rate of 0.20-0.40%. All positive troponins reflex immediate secondary confirmatory testing. Procedures Date Code Description Status 07/23/2019 95839 Inject/Drain Joint/Bursa Major W/O US Completed 07/20/2019 06571 EKG Tracing & Interpretation Completed 06/29/2019 87006 Coronary Angiography With Catheter Placement In [facility] Completed Grafts 06/29/2019 22857 Revascularization Acute Total/Subtotal Occlusion Completed 06/29/2019 87569 Percutaneous Transcatheter Placement Of Intracoronary Completed Stent 06/24/2019 12364 Hemodialysis, One Evaluation Completed 06/22/2019 20142 Hemodialysis, One Evaluation Completed 06/22/2019 33177 Coronary Angiography With Catheter Placement In [facility] Completed Grafts 06/22/2019 78793 Revascularization Coronary Artery Bypass Graft Completed 06/19/2019 77140 Treadmill Interp/Report Only Completed 06/19/2019 39291 Stress Test Supervsn W/Out I/R Completed 03/04/2019 86611 EKG Tracing & Interpretation Completed 02/18/2019 49627 Hemodialysis, Repeated Evaluation Completed 02/18/2019 16639 EKG, Interpretation Only Completed 02/17/2019 88146 ECHO Transthorasic Realtime 2D W Doppler & Color Flow Hosp Completed 02/17/2019 87563 EKG, Interpretation Only Completed 02/16/2019 65549 Coronary Angiography With Catheter Placement In [facility] Completed Grafts 02/16/2019 10397 EKG, Interpretation Only Completed 02/16/2019 26969 Revascularization Coronary Artery Bypass Graft Completed 02/16/2019 93720 Hemodialysis, One Evaluation Completed 02/13/2019 94076 Fluoroscopic Guidance For Cent Completed 02/13/2019 46170 Ultrasound Guidance For Vascular Access Completed 02/13/2019 70814 Insertion Tunneled Cent Venous Cathr W/O Subcut Port/Pump Completed 5Yrs> 01/28/2019 43183 EKG, Interpretation Only Completed 01/27/2019 31353 EKG, Interpretation Only Completed Medical Devices Description No Information Available Encounters Type Date Location Provider Dx Diagnosis Office Visit 07/20/2019 [facility] Lg Beltre, I25.2 Old myocardial 3:40p Of Classification Case Manager DO FACC infarction N18.6 End stage renal disease E78.5 Hyperlipidemia, unspecified I10 Essential (primary) hypertension I25.10 Athscl heart disease of [place] coronary artery w/o ang pctrs Z95.1 Presence of aortocoronary bypass graft G47.33 Obstructive sleep apnea (adult) (pediatric) I63.9 Cerebral infarction, unspecified Office Visit 07/01/2019 4:58p [facility] Amy Epperson, I21.4 Non- St elevation Of Classification Case Manager AT [facility] [employer] (Nstemi) myocardial infarction I12.0 Hyp chr kidney disease w stage 5 chr kidney disease or Esrd N18.6 End stage renal disease E78.5 Hyperlipidemia, unspecified Office Visit 06/30/2019 4:56p [facility] Amy Epperson, I21.4 Non- St elevation Of Classification Case Manager AT [facility] [employer] (Nstemi) myocardial infarction I12.0 Hyp chr kidney disease w stage 5 chr kidney disease or Esrd N18.6 End stage renal disease E78.5 Hyperlipidemia, unspecified Office Visit 06/30/2019 2:37p [facility] Ashley I24.9 Acute ischemic Assocjere DO heart disease, Hospitalists unspecified N40.0 Benign prostatic hyperplasia without lower urinry tract symp N18.6 End stage renal disease I10 Essential (primary) hypertension E87.70 Fluid overload, unspecified Office Visit 06/29/2019 [facility] Lg Michael I21.4 Non-St elevation 4:54p Of [facility] Beltre, DO FACC (Nstemi) myocardial infarction Office Visit 06/29/2019 [facility] Bernadine Melo, R07.9 Chest pain, 2:37p Assjere gurrola M.D. unspecified Hospitalists N18.6 End stage renal disease Z87.448 Personal history of other diseases of urinary system Z86.79 Personal history of other diseases of the circulatory system Office Visit 06/25/2019 [facility] Gab R00.1 Bradycardia, 11:07a jere Wood M.D. unspecified Hospitalists I21.4 Non-St elevation (Nstemi) myocardial infarction N18.6 End stage renal disease M25.511 Pain in right shoulder N40.1 Benign prostatic hyperplasia with lower urinary tract symp R33.9 Retention of urine, unspecified I10 Essential (primary) hypertension Z86.31 Personal history of diabetic foot ulcer G47.33 Obstructive sleep apnea (adult) (pediatric) Office Visit 06/25/2019 4:52p [facility] Lg Michael R00.1 Bradycardia, Of Classification Case Manager Beltre, DO unspecified FACC Office Visit 06/24/2019 11:07a [facility] Gab R00.1 Bradycardia, Assocjere unspecified Hospitalists MJennifer I21.4 Non-St elevation (Nstemi) myocardial infarction N18.6 End stage renal disease M25.519 Pain in unspecified shoulder N40.0 Benign prostatic hyperplasia without lower urinry tract symp I10 Essential (primary) hypertension R33.9 Retention of urine, unspecified Office Visit 06/23/2019 11:49a [facility] Aj Hannon, I21.4 Non- St elevation Of Classification Case Manager AT [facility] M.Sg, FACC, (Nstemi) FSCAI myocardial infarction I25.810 Atherosclerosis of CABG w/o angina pectoris Z95.1 Presence of aortocoronary bypass graft Office Visit 06/23/2019 [facility] R00.1 Bradycardia, 11:06a jere Wood M.D. unspecified Hospitalists I21.4 Non-St elevation (Nstemi) myocardial infarction N18.6 End stage renal disease M25.519 Pain in unspecified shoulder Office Visit 06/22/2019 11:06a [facility] I21.4 Non-St elevation jere Wood MD (Nstemi) Hospitalists myocardial infarction N18.6 End stage renal disease M25.519 Pain in unspecified shoulder I10 Essential (primary) hypertension Office Visit 06/21/2019 11:06a [facility] I21.4 Non-St elevation jere Wood MD (Nstemi) Hospitalists myocardial infarction N18.6 End stage renal disease M25.519 Pain in unspecified shoulder I10 Essential (primary) hypertension Office Visit 06/20/2019 11:05a [facility] I21.4 Non-St elevation jere Wood MD (Nstemi) Hospitalists myocardial infarction N18.6 End stage renal disease M25.519 Pain in unspecified shoulder I10 Essential (primary) hypertension Office Visit 06/19/2019 11:05a [facility] I21.4 Non-St elevation Assjere gurrola MD (Nstemi) Hospitalists myocardial infarction N18.6 End stage renal disease M25.519 Pain in unspecified shoulder Office Visit 06/18/2019 1:31p [facility] M25.511 Pain in right Services Of Sebastian Cano shoulder C.M.A. Office Visit 06/18/2019 1:49p [facility] Karen Dc R07.9 Chest pain, Of Classification Case Manager AT [facility] MD Jorge, unspecified FAC, [facility] R79.89 Other specified abnormal findings of blood chemistry I12.9 Hypertensive chronic kidney disease w stg 1-4/unsp chr kdny N18.9 Chronic kidney disease, unspecified Office Visit 06/18/2019 11:04a [facility] Bernadine Kameron, M25.511 Pain in right Assoc,jere Cortes shoulder Hospitalists R07.9 Chest pain, unspecified N18.6 End stage renal disease Office Visit 03/04/2019 4:20p [facility] Lg Michael I25.2 Old myocardial Of [facility] Beltre, DO infarction FACC I25.119 Athscl heart disease of [place] cor art w unsp ang pctrs Z95.1 Presence of aortocoronary bypass graft N18.6 End stage renal disease E11.69 Type 2 diabetes mellitus with other specified complication E78.5 Hyperlipidemia, unspecified I10 Essential (primary) hypertension Office Visit 02/18/2019 [facility] Aj Hannon I25.700 Atherosclerosis of 4:00p Cardiology Eric Cortes, FACPoncho, CABG, unsp, w [facility] AT [facility] unstable angina pectoris Z95.1 Presence of aortocoronary bypass graft N28.9 Disorder of kidney and ureter, unspecified Office Visit 02/18/2019 9:45a [facility] Ashley I24.9 Acute ischemic Assoc,jere Bunn, DO heart disease, Hospitalists unspecified N18.6 End stage renal disease I10 Essential (primary) hypertension E11.69 Type 2 diabetes mellitus with other specified complication R00.1 Bradycardia, unspecified Office Visit 02/17/2019 9:44a [facility] Ashley N18.5 Chronic kidney Assoc,jere Bunn, DO disease, stage Hospitalists 5 I20.0 Unstable angina E11.22 Type 2 diabetes mellitus w diabetic chronic kidney disease I10 Essential (primary) hypertension I45.5 Other specified heart block Office Visit 02/17/2019 [facility] Amy I25.700 Atherosclerosis of 1:10p Cardiology Of WONG Epperson CABG, unsp, w [facility] AT [facility] unstable angina pectoris I34.0 Nonrheumatic mitral (valve) insufficiency Z95.1 Presence of aortocoronary bypass graft I12.0 Hyp chr kidney disease w stage 5 chr kidney disease or Esrd N18.6 End stage renal disease Office Visit 02/16/2019 9:44a [facility] Ashley N18.5 Chronic kidney Assoc,jere Bunn DO disease, stage Hospitalists 5 I20.0 Unstable angina E11.22 Type 2 diabetes mellitus w diabetic chronic kidney disease I10 Essential (primary) hypertension I45.5 Other specified heart block Office Visit 02/16/2019 4:02p [facility] Aj Hannon I21.4 Non- St elevation Of Classification Case Manager AT [facility] Sebastian, [facility], (Nstemi) [facility] myocardial infarction Office Visit 02/15/2019 9:44a [facility] Siva I49.5 Sick sinus Assoc,jere Jon M.D. syndrome Hospitalists I20.0 Unstable angina N18.5 Chronic kidney disease, stage 5 E11.22 Type 2 diabetes mellitus w diabetic chronic kidney disease I10 Essential (primary) hypertension Office Visit 02/15/2019 3:57p [facility] Karen Dc I21.4 Non-St elevation Of Classification Case Manager AT [facility] MD Jorge, (Nstemi) [facility], [facility] myocardial infarction Office Visit 2019 9:43a [facility] Siva I49.5 Sick sinus Assoc,jere Jon M.D. syndrome Hospitalists I20.0 Unstable angina N18.5 Chronic kidney disease, stage 5 E11.22 Type 2 diabetes mellitus w diabetic chronic kidney disease I10 Essential (primary) hypertension Office Visit 02/13/2019 9:43a [facility] Joann R07.9 Chest pain, Assoc,pc DO Bernarda unspecified Hospitalists I10 Essential (primary) hypertension E11.9 Type 2 diabetes mellitus without complications R42 Dizziness and giddiness Office Visit 01/30/2019 10:07a [facility] Danielle N18.6 End stage Assoc,pc Radha Pérez, renal disease Hospitalists [employer] E87.70 Fluid overload, unspecified N18.4 Chronic kidney disease, stage 4 (severe) G89.4 Chronic pain syndrome I21.4 Non-St elevation (Nstemi) myocardial infarction R07.9 Chest pain, unspecified I25.10 Athscl heart disease of [place] coronary artery w/o ang pctrs E11.22 Type 2 diabetes mellitus w diabetic chronic kidney disease Office Visit 01/30/2019 11:14a [facility] Karen Dc I21.4 Non-St elevation Of Classification Case Manager AT [facility] MD Jorge, (Nstemi) FACC, [facility] myocardial infarction I50.9 Heart failure, unspecified Office Visit 01/29/2019 11:13a [facility] Karen Dc I21.4 Non-St elevation Of Classification Case Manager AT [facility] MD Jorge, (Nstemi) FACC, FSCAI myocardial infarction I50.9 Heart failure, unspecified Office Visit 01/29/2019 [facility] E87.70 Fluid overload, 10:07a Assoc,[facility], unspecified Hospitalists [employer] D64.9 Anemia, unspecified R07.9 Chest pain, unspecified N18.4 Chronic kidney disease, stage 4 (severe) I10 Essential (primary) hypertension I21.4 Non-St elevation (Nstemi) myocardial infarction E11.22 Type 2 diabetes mellitus w diabetic chronic kidney disease I25.10 Athscl heart disease of [place] coronary artery w/o ang pctrs Office Visit 01/28/2019 11:12a [facility] Karen Dc I21.4 Non-St elevation Of Classification Case Manager AT [facility] MD Jorge, (Nstemi) FAC, [facility] myocardial infarction I50.9 Heart failure, unspecified Office Visit 01/28/2019 [facility] E87.70 Fluid overload, 10:06a Assoc,[facility] Beto, unspecified Hospitalists [employer] D64.9 Anemia, unspecified R07.9 Chest pain, unspecified N18.4 Chronic kidney disease, stage 4 (severe) I10 Essential (primary) hypertension I21.4 Non-St elevation (Nstemi) myocardial infarction E11.22 Type 2 diabetes mellitus w diabetic chronic kidney disease I25.10 Athscl heart disease of [place] coronary artery w/o ang pctrs Office Visit 01/27/2019 10:05a [facility] Toñito Palafox MD N18.6 End stage renal Assoc, disease Hospitalists I25.10 Athscl heart disease of [place] coronary artery w/o ang pctrs I21.4 Non-St elevation (Nstemi) myocardial infarction R79.89 Other specified abnormal findings of blood chemistry Office Visit 01/27/2019 2:38p [facility] Karen Dc I21.4 Non-St elevation Of Classification Case Manager AT [facility] MD Jorge, (Nstemi) [facility], [facility] myocardial infarction I50.9 Heart failure, unspecified Office Visit 01/24/2019 3:20p [facility] Aj Hannon, I21.4 Non- St elevation Of Classification Case Manager AT [facility] M.gS, [facility], (Nstemi) [facility] myocardial infarction Office Visit 01/24/2019 10:31a [facility] Gab I21.4 Non-St elevation Assoc,pc Glory, (Nstemi) Hospitalists MJennifer myocardial infarction D64.9 Anemia, unspecified N40.0 Benign prostatic hyperplasia without lower urinry tract symp N18.4 Chronic kidney disease, stage 4 (severe) E11.22 Type 2 diabetes mellitus w diabetic chronic kidney disease I10 Essential (primary) hypertension I25.10 Athscl heart disease of [place] coronary artery w/o ang pctrs E78.5 Hyperlipidemia, unspecified Assessments Date Code Description Provider 07/23/2019 M25.511 Pain in right shoulder Rere Salazar MD 07/23/2019 M75.41 Impingement syndrome of right Rere Salazar MD shoulder 07/20/2019 I25.2 Old myocardial infarction Lg Beltre DO [facility] 07/20/2019 N18.6 End stage renal disease Lg Beltre DO [facility] 07/20/2019 E78.5 Hyperlipidemia, unspecified Lg Beltre DO [facility] 07/20/2019 I10 Essential (primary) hypertension Lg Beltre DO [facility] 07/20/2019 I25.10 Atherosclerotic heart disease of Lg Beltre DO [facility] [place] coronary artery without angina pectoris 07/20/2019 Z95.1 Presence of aortocoronary bypass Lg Beltre DO [facility] graft 07/20/2019 G47.33 Obstructive sleep apnea (adult) Lg Beltre DO [facility] (pediatric) 07/20/2019 I63.9 Cerebral infarction, unspecified Lg Beltre DO FAC 07/01/2019 I21.4 Non-St elevation (Nstemi) myocardial Amy Thuman, [employer] infarction 07/01/2019 I12.0 Hypertensive chronic kidney disease Amy Thuman, [employer] with stage 5 chronic kidney disease or end stage renal disease 07/01/2019 N18.6 End stage renal disease Amy Thuman, [employer] 07/01/2019 E78.5 Hyperlipidemia, unspecified Amy Thuman, [employer] 06/30/2019 I21.4 Non-St elevation (Nstemi) myocardial Amy Epperson, [employer] infarction 06/30/2019 I12.0 Hypertensive chronic kidney disease Amy Amadoruman, [employer] with stage 5 chronic kidney disease or end stage renal disease 06/30/2019 N18.6 End stage renal disease Amy Thuman, [employer] 06/30/2019 E78.5 Hyperlipidemia, unspecified Amy Thuman, [employer] 06/30/2019 I24.9 Acute ischemic heart disease, Ashley Senner, DO unspecified 06/30/2019 N40.0 Benign prostatic hyperplasia without Ashley Senner, DO lower urinary tract symptoms 06/30/2019 N18.6 End stage renal disease Ashley Senner, DO 06/30/2019 I10 Essential (primary) hypertension Ashley Senner, DO 06/30/2019 E87.70 Fluid overload, unspecified Ashley Senner, DO 06/29/2019 I25.10 Atherosclerotic heart disease of Karen Patel MD, [facility], [place] coronary artery without angina FSCAI pectoris 06/29/2019 I21.4 Non-St elevation (Nstemi) myocardial Karen Patel MD, FAC, infarction [facility]SCAI 06/29/2019 Z95.1 Presence of aortocoronary bypass Karen Patel MD, FACC , graft FSCAI 06/29/2019 I21.4 Non-St elevation [...] 06/25/2019 R00.1 Bradycardia, unspecified Lg Beltre, DO [facility] 06/25/2019 R00.1 Bradycardia, unspecified Gab Holder M.D. 06/25/2019 I21.4 Non-St elevation (Nstemi) myocardial Gab Holder M.D. infarction 06/25/2019 N18.6 End stage renal disease Gab Holder M.D. 06/25/2019 M25.511 Pain in right shoulder Gab Holder M.D. 06/25/2019 N40.1 Benign prostatic hyperplasia with Gab Holder M.D. lower urinary tract symptoms 06/25/2019 R33.9 Retention of urine, camille Holder M.D. 06/25/2019 I10 Essential (primary) hypertension Gab Holder M.D. 06/25/2019 Z86.31 Personal history of diabetic foot Gab Holder M.D. ulcer 06/25/2019 G47.33 Obstructive sleep apnea (adult) Gab Holder M.D. (pediatric) 06/24/2019 N18.6 End stage renal disease Jennifer Pereira MD 06/24/2019 R00.1 Bradycardia, unspecified Gab Holder M.D. 06/24/2019 I21.4 Non-St elevation (Nstemi) myocardial Gab Holder M.D. infarction 06/24/2019 N18.6 End stage renal disease Gab Holder M.D. 06/24/2019 M25.519 Pain in unspecified shoulder Gab Holder M.D. 06/24/2019 N40.0 Benign prostatic hyperplasia without Gab Holder M.D. lower urinary tract symptoms 06/24/2019 I10 Essential (primary) hypertension Gab Holder M.D. 06/24/2019 R33.9 Retention of urine, camille Holder M.D. 06/23/2019 I21.4 Non-St elevation (Nstemi) myocardial Aj Hannon M.D., [facility], infarction [facility] 06/23/2019 I25.810 Atherosclerosis of coronary artery Aj Hannon M.D., FAC, bypass graft(s) without angina [facility] pectoris 06/23/2019 Z95.1 Presence of aortocoronary bypass Aj Hannon M.D., [facility], graft [facility] 06/23/2019 R00.1 Bradycardia, unspecified Gab Holder M.D. 06/23/2019 I21.4 Non-St elevation (Nstemi) myocardial Gab Holder M.D. infarction 06/23/2019 N18.6 End stage renal disease Gab Holder M.D. 06/23/2019 M25.519 Pain in unspecified shoulder Gab Holder M.D. 06/22/2019 N18.6 End stage renal disease Jennifer Pereira MD 06/22/2019 I25.810 Atherosclerosis of coronary artery Aj Hannon M.D., [facility], bypass graft(s) without angina [facility] pectoris 06/22/2019 Z95.1 Presence of aortocoronary bypass Aj Hannon M.D., [facility], graft [facility] 06/22/2019 I21.4 Non-St elevation (Nstemi) [...] 06/20/2019 M25.519 Pain in unspecified shoulder Dominique Movva, MD 06/20/2019 I10 Essential (primary) hypertension Dominique Meraz MD 06/19/2019 R07.9 Chest pain, unspecified Karen Patel MD, [facility], [facility] 06/19/2019 I21.4 Non-St elevation (Nstemi) myocardial Dominique Meraz MD infarction 06/19/2019 N18.6 End stage renal disease Dominique Meraz MD 06/19/2019 M25.519 Pain in unspecified shoulder Dominique Meraz MD 06/18/2019 M25.511 Pain in right shoulder Siva Cano M.D. 06/18/2019 R07.9 Chest pain, unspecified Karen Patel MD, [facility], [facility] 06/18/2019 R79.89 Other specified abnormal findings of Karen Patel MD , [facility], blood chemistry [facility] 06/18/2019 I12.9 Hypertensive chronic kidney disease Karen Patel MD, [facility], with stage 1 through stage 4 chronic [facility] kidney disease, or unspecified chronic kidney disease 06/18/2019 N18.9 Chronic kidney disease, unspecified Karen Patel MD, [facility], [facility] 06/18/2019 M25.511 Pain in right shoulder Bernadine Melo M.D. 06/18/2019 R07.9 Chest pain, unspecified Bernadine Melo M.D. 06/18/2019 N18.6 End stage renal disease Bernadine Melo M.D. 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, unsp, w Aj Hannon M.D., [facility], unstable angina pectoris [facility] 02/18/2019 I10 Essential (primary) hypertension Ashley Senpeterson, DO 02/18/2019 Z95.1 Presence of aortocoronary bypass Aj Hannon M.D., [facility], graft [facility] 02/18/2019 E11.69 Type 2 diabetes mellitus with other Ashley Oni, DO specified complication 02/18/2019 N28.9 Disorder of kidney and ureter, Aj Hannon M.D., [facility], unspecified [facility] 02/18/2019 R00.1 Bradycardia, unspecified Ashley Senner, DO [...] kidney disease w stage 5 chr Amy Epperson NP kidney disease or Esrd 02/17/2019 R06.02 Shortness of breath Micheal Salvador M.D. 02/17/2019 E11.22 Type 2 diabetes mellitus w diabetic Ashley Bunn, DO chronic kidney disease 02/17/2019 N18.6 End stage renal disease Amy Zhou, WONG 02/17/2019 I10 Essential (primary) hypertension Ashley Bunn, DO 02/17/2019 I45.5 Other specified heart block Ashley Bunn, DO 02/16/2019 R94.31 Abnormal electrocardiogram [ECG] Golden Oshea M.D. 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 02/15/2019 I21.4 Non-St elevation (Nstemi) myocardial Karen Patel MD, [facility], infarction [facility] 02/15/2019 I20.0 Unstable angina Siva Jon M.D. [...] N18.6 End stage renal disease Danielle Pérez, [employer] 01/30/2019 I21.4 Non-St elevation (Nstemi) myocardial Karen Patel MD, [facility], infarction [facility] 01/30/2019 E87.70 Fluid overload, unspecified Danielle Pérez, [employer] 01/30/2019 I50.9 Heart failure, unspecified Karen Patel MD, FACC, [facility] 01/30/2019 N18.4 Chronic kidney disease, stage 4 Danielle Pérez, [employer] (severe) 01/30/2019 G89.4 Chronic pain syndrome Danielle Pérez, [employer] 01/30/2019 I21.4 Non-St elevation (Nstemi) myocardial Danielle Pérez , [employer] infarction 01/30/2019 R07.9 Chest pain, unspecified Danielle Pérez, [employer] 01/30/2019 I25.10 Athscl heart disease of [place] Danielle PérezWONG coronary artery w/o ang pctrs 01/30/2019 E11.22 Type 2 diabetes mellitus w diabetic Danielle Pérez , [employer] chronic kidney disease 01/29/2019 I21.4 Non-St elevation (Nstemi) myocardial Karen Patel MD, [facility], infarction [facility] 01/29/2019 I50.9 Heart failure, unspecified Karen Patel MD, FACC, [facility] 01/29/2019 E87.70 Fluid overload, unspecified Danielle Garcia Doto, [employer] 01/29/2019 D64.9 Anemia, unspecified Danielle Radha Doto, [employer] 01/29/2019 R07.9 Chest pain, unspecified Danielle Garcia Doto, [employer] 01/29/2019 N18.4 Chronic kidney disease, stage 4 Danielle Wuo, [employer] (severe) 01/29/2019 I10 Essential (primary) hypertension Danielle Wuo, [employer] 01/29/2019 I21.4 Non-St elevation (Nstemi) myocardial Danielle Pérez , [employer] infarction 01/29/2019 E11.22 Type 2 diabetes mellitus w diabetic Danielle Pérez , [employer] chronic kidney disease 01/29/2019 I25.10 Athscl heart disease of [place] Danielle Pérez, [employer] coronary artery w/o ang pctrs 01/28/2019 R94.31 Abnormal electrocardiogram [ECG] Micheal Salvador M.D. [EKG] 01/28/2019 I21.4 Non-St elevation (Nstemi) myocardial Karen Patel MD, [facility], infarction [facility] 01/28/2019 I50.9 Heart failure, unspecified Karen Patel MD, [facility], [facility] 01/28/2019 E87.70 Fluid overload, unspecified Danielle Garcia Doto, [employer] 01/28/2019 D64.9 Anemia, unspecified Danielle Garcia Doto, [employer] 01/28/2019 R07.9 Chest pain, unspecified Danielle Garcia Doto, [employer] 01/28/2019 N18.4 Chronic kidney disease, stage 4 Danielle Wuo, [employer] (severe) 01/28/2019 I10 Essential (primary) hypertension Danielle Wuo, [employer] 01/28/2019 I21.4 Non-St elevation (Nstemi) myocardial Dainelle Pérez , [employer] infarction 01/28/2019 E11.22 Type 2 diabetes mellitus w diabetic Danielle Pérez , [employer] chronic kidney disease 01/28/2019 I25.10 Athscl heart disease of [place] Danielle Radha Doto, [employer] coronary artery w/o ang pctrs 01/27/2019 R94.31 Abnormal electrocardiogram [ECG] Golden Oshea M.D. [EKG] 01/27/2019 I21.4 Non-St elevation (Nstemi) myocardial Karen Patel MD, [facility], infarction [facility] 01/27/2019 I50.9 Heart failure, unspecified Karen Patel MD, [facility], [facility] 01/27/2019 N18.6 End stage renal disease Toñito Palafox MD 01/27/2019 I25.10 Athscl heart disease of [place] Toñito Palafox MD coronary artery w/o ang pctrs 01/27/2019 I21.4 Non-St elevation (Nstemi) myocardial Toñito Palafox MD infarction 01/27/2019 R79.89 Other specified abnormal findings of Toñito Palafox MD blood chemistry 01/24/2019 I21.4 Non-St elevation (Nstemi) myocardial Aj Hannon M.D., [facility], infarction [facility] 01/24/2019 I21.4 Non-St elevation (Nstemi) myocardial Gab [...] M.D. 01/24/2019 I25.10 Athscl heart disease of [place] Gab Holder M.D. coronary artery w/o ang pctrs 01/24/2019 E78.5 Hyperlipidemia, unspecified Gab Holder M.D. Plan of Treatment Future Appointment(s):09/10/2019 3:30 pm - Rere Slaazar MD at [facility]07/23/2019 - Rere Salazar MDM25.511 Pain in right shoulderNew Xrays:Shoulder Right 2+ VWS, Ordered: 07/23/19M75.41 Impingement syndrome of right shoulderNew Medication:Diclofenac Sodium 1 % - apply 1 gram 3- 4 times a day to painful areaNew Therapy:Physical TherapyFollow up:Follow up: 6 weeks Functional Status Description No Information Available Mental Status Description No Information Available Referrals Description No Information Available
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
[2019-08-10 00:23] LABS: ABS Eosinophils 0.2 10^3/ul (0-0.6); ABS Lymphocytes 0.9 10^3/ul (1.0-4.8); ABS Monocytes 0.5 10^3/ul (0-0.8); Eosinophil % 2.3 %; Hematocrit 30 % (42-52); Hemoglobin 10.1 g/dL (14.0-18.0); Lymphocyte % 12.3 %; Mean Corpuscular HGB Conc 34 g/dL (31-36); Mean Corpuscular Hemoglobin 31 pg (27-31); Mean Corpuscular Volume 91 fL (80-94); Mean Platelet Volume 7.7 fL (7.4-10.4); Platelet Count 173 10^3/uL (150-450); Red Blood Count 3.27 10^6 /uL (4.18-5.48); Red Cell Distribution Width 16 % (10-15); White Blood Count 7.7 10^3/uL (3.5-10.8)
[2019-08-10 00:42] LABS: ALT 30 U/L (7-52); AST 26 U/L (13-39); Albumin/Globulin Ratio 1.9 (1-3); Alkaline Phosphatase 65 U/L (34-104); Anion Gap 9 mmol/L (2-11); BUN/Creatinine Ratio 11.9 (8-20); Blood Urea Nitrogen 64 mg/dL (6-24); CO2 Carbon Dioxide 24 mmol/L (22-32); Calcium 8.6 mg/dL (8.6-10.3); Chloride 106 mmol/L (101-111); EGFR Non-African American 10.7 (>60); Globulin 2.1 g/dL (2-4); Glucose 152 mg/dL (70-100); Potassium 4.2 mmol/L (3.5-5.0); Sodium 139 mmol/L (135-145); Total Protein 6.1 g/dL (6.4-8.9)
[2019-08-10 00:45] LABS: Troponin I 0.06 ng/mL (<0.04)
[2019-08-10 04:03] LABS: Troponin I 0.09 ng/mL (<0.04)
[2019-08-10 04:20] VITALS: BP 183/91
== END 2019-08-10 04:04 | disposition home or self-care (01) ==
LOC: ED 23:38
DX: R07.89 Other chest pain (principal); R11.0 Nausea; I13.2 Hypertensive heart and chronic kidney disease with heart failure and with stage 5 chronic kidney disease, or end stage renal disease; N18.6 End stage renal disease; Z99.2 Dependence on renal dialysis; K21.9 Gastro-esophageal reflux disease without esophagitis; Z86.73 Personal history of transient ischemic attack (TIA), and cerebral infarction without residual deficits; E11.22 Type 2 diabetes mellitus with diabetic chronic kidney disease; I25.2 Old myocardial infarction; Z79.01 Long term (current) use of anticoagulants; Z79.82 Long term (current) use of aspirin; Z95.1 Presence of aortocoronary bypass graft; Z95.5 Presence of coronary angioplasty implant and graft; Z88.2 Allergy status to sulfonamides
CPT/HCPCS: 36415; 80053; 84484; 85025; 93005; 99283

== ENCOUNTER 2020-01-26 02:22 | Inpatient (IN) | payer MEDICARE ==
[2020-01-26] MEDS ORDERED: Aspirin 81 mg CHEW TAB* 81 MG TAB.CHEW ONE (02:33)
[2020-01-26] MEDS ORDERED: Nitroglycerin TAB 0.4 MG* 0.4 MG TAB ONE (02:33)
[2020-01-26] MEDS ORDERED: Ticagrelor* 90 MG TAB PO ONE (02:34)
[2020-01-26] MEDS ORDERED: nitroGLYCERIN DRIP* 0 MCG/0 ML BTL ONE (02:34)
[2020-01-26] MEDS ORDERED: Heparin for STEMI(*) 5,000 UNITS/ML 1 ML VIAL IV ONE (02:34)
[2020-01-26] MEDS ORDERED: Aspirin 81 mg CHEW TAB* 81 MG TAB.CHEW PO ONE (02:36)
[2020-01-26 02:40] LABS: ABS Eosinophils 0.2 10^3/ul (0-0.6); ABS Lymphocytes 1.3 10^3/ul (1.0-4.8); ABS Monocytes 0.6 10^3/ul (0-0.8); ABS Neutrophils 3.7 10^3/ul (1.5-7.7); Eosinophil % 3.1 %; Hematocrit 30 % (42-52); Lymphocyte % 22.8 %; Mean Corpuscular HGB Conc 34 g/dL (31-36); Mean Corpuscular Hemoglobin 31 pg (27-31); Mean Corpuscular Volume 92 fL (80-94); Mean Platelet Volume 8.5 fL (7.4-10.4); Platelet Count 192 10^3/uL (150-450); Red Blood Count 3.26 10^6 /uL (4.18-5.48); Red Cell Distribution Width 14 % (10-15); White Blood Count 5.8 10^3/uL (3.5-10.8)
[2020-01-26] MEDS ORDERED: Metoprolol Tartrate IV* 1 MG/ML 5 ML VIAL IV ONE (02:43)
[2020-01-26] MEDS ORDERED: Nitroglycerin TAB 0.4 MG* 0.4 MG TAB SL ONE (02:44)
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
[2020-01-26 02:55] LABS: Activated Partial Thrombo Time 32.9 seconds (26.0-38.0); INR 0.97 (0.82-1.09)
[2020-01-26 02:57] LABS: ALT 36 U/L (7-52); AST 39 U/L (13-39); Albumin 4.2 g/dL (3.2-5.2); Albumin/Globulin Ratio 1.8 (1-3); Alkaline Phosphatase 80 U/L (34-104); Anion Gap 13 mmol/L (2-11); BUN/Creatinine Ratio 7.9 (8-20); Blood Urea Nitrogen 43 mg/dL (6-24); CO2 Carbon Dioxide 27 mmol/L (22-32); Calcium 8.6 mg/dL (8.6-10.3); Chloride 96 mmol/L (101-111); EGFR African American 12.8 (>60); EGFR Non-African American 10.6 (>60); Globulin 2.3 g/dL (2-4); Glucose 132 mg/dL (70-100); Potassium 3.5 mmol/L (3.5-5.0); Sodium 136 mmol/L (135-145); Total Protein 6.5 g/dL (6.4-8.9)
[2020-01-26] MEDS ORDERED: Lidocaine 1% INJ* 10 MG/ML 30 ML SDV ONE (02:57)
[2020-01-26] MEDS ORDERED: Iodixanol 320 (CONTRAST) 100 ML SDV ONE (02:57)
[2020-01-26] MEDS ORDERED: Heparin 2 UNITS/ML IVPREMIX* 1,000 ML IV ONE (02:57)
[2020-01-26] MEDS ORDERED: Heparin(*) 1000 UNIT/ML 10 ML VIAL CATH LAB IV ONE (02:57)
[2020-01-26] MEDS ORDERED: VERAPAMIL 2.5 MG/ML 2 ML VIAL ** 5 mg/2 ml ONE (02:57)
[2020-01-26] MEDS ORDERED: nitroGLYCERIN DRIP* 25,000 MCG/250 ML BTL ONE (02:57)
[2020-01-26 03:04] LABS: Troponin I 0.76 ng/mL (<0.03)
[2020-01-26 03:11] LABS: Cholesterol 125 mg/dL; Creatine Kinase 165 U/L (10-223); HDL Cholesterol 37.4 mg/dL; LDL Cholesterol 54 mg/dL; Triglycerides 170 mg/dL
[2020-01-26 03:16] LABS: Myoglobin 236.5 ng/mL (17.4-105.7)
[2020-01-26 03:17] LABS: CKMB ng/mL 3.6 ng/mL (0.6-6.3)
[2020-01-26] MEDS ORDERED: Al Hydrox/Mg Hydrox/Simet LIQ* 30 ML UDC PO PRN (03:43)
[2020-01-26] MEDS: Heparin DRIP 25,000 UNITS(*) 25,000 UNITS/500 ML BAG IV SCH (03:58)
[2020-01-26] MEDS: Heparin VIAL(*) 5000 UNITS/ML VIAL (FIVE THOUSAND) IV PRN ×2 (04:00→23:04)
[2020-01-26] MEDS ORDERED: Acetaminophen / Codeine* #3 (300 MG/30 MG) TAB PO PRN (04:02)
[2020-01-26 05:30] LABS: Influenza A Molecular Negative (Negative); Influenza B Molecular Negative (Negative)
[2020-01-26 05:47] LABS: ABS Eosinophils 0.1 10^3/ul (0-0.6); ABS Lymphocytes 0.9 10^3/ul (1.0-4.8); ABS Monocytes 0.5 10^3/ul (0-0.8); ABS Neutrophils 5.9 10^3/ul (1.5-7.7); Eosinophil % 0.8 %; Hematocrit 29 % (42-52); Hemoglobin 9.9 g/dL (14.0-18.0); Lymphocyte % 12.5 %; Mean Corpuscular HGB Conc 35 g/dL (31-36); Mean Corpuscular Hemoglobin 32 pg (27-31); Mean Corpuscular Volume 92 fL (80-94); Mean Platelet Volume 8.9 fL (7.4-10.4); Platelet Count 176 10^3/uL (150-450); Red Blood Count 3.13 10^6 /uL (4.18-5.48); Red Cell Distribution Width 14 % (10-15); White Blood Count 7.4 10^3/uL (3.5-10.8)
[2020-01-26 07:40] LABS: Blood Urea Nitrogen 46 mg/dL (6-24); EGFR African American 12.6 (>60); EGFR Non-African American 10.4 (>60)
[2020-01-26 07:46] LABS: Troponin I 1.02 ng/mL (<0.03)
--- NOTE | 2020-01-26 08:25 | HP ---
CC: Dr. Caban * HISTORY AND PHYSICAL: DATE OF ADMISSION: 01/26/20 TIME OF ADMISSION: 4:30 a.m. PRIMARY CARE PHYSICIAN: Dr. Caban. CHIEF COMPLAINT: Chest pain. HISTORY OF PRESENT ILLNESS: This is a 64-year-old man with history of coronary artery disease and end-stage renal disease, who presented to the emergency department early this morning with right arm and chest pain that woke him from sleep. He had gone to bed around 8:30 p.m., fell asleep, and woke up at 1 a.m. with sweats and what he described as excruciating right arm pain. The pain then radiated to the right side of his chest. He tried to take nitroglycerin sublingual, but it was and it did not help the pain. He became dizzy and asked his to bring him to the emergency department. On further questioning, he says that since Saturday he has "felt like crap." He has been lethargic and has had poor sleep and poor balance. In the emergency department, STEMI was called and Dr. Patel reviewed his EKG. He felt that this was related to chronic obstruction and likely represented an NSTEMI. He received IV metoprolol and after that the ST depression across the precordium and the ST elevations in aVR nearly resolved. His pain is resolved. Dr. Patel, per the ED provider, recommended admission for an NSTEMI with a heparin drip and did not pursue a catheterization. PAST MEDICAL HISTORY: Coronary artery disease, status post CABG and then PCI to a graft in June of 2019; end-stage renal disease, on hemodialysis; anemia of chronic disease; obstructive sleep apnea; history of CVA with memory impairment; history of PFO closure, diabetes, hyperlipidemia, and hypertension. ALLERGIES: BACTRIM. FAMILY HISTORY: Mom with hypertension and diabetes. SOCIAL HISTORY: He lives at home with his who is also his healthcare proxy. He has no smoking history and uses no drugs. REVIEW OF SYSTEMS: As per the HPI. PHYSICAL EXAMINATION GENERAL: Alert, tired-appearing man, in no distress. VITAL SIGNS: Temperature 98 degrees, heart rate 84, respiratory rate 22, pulse ox 97% on room air, blood pressure 160/88. HEENT: Pupils are equal, round, and reactive to light. Oral mucosa is moist. NECK: No JVP or adenopathy. LUNG: His lungs are clear bilaterally. CHEST: He is in irregularly irregular rhythm with no murmurs. ABDOMEN: Soft, nontender, nondistended with no guarding or rebound. EXTREMITIES: No edema. He has chronic venous stasis changes in both lower extremities. He has a fistula in the right upper extremity. DIAGNOSTIC STUDIES/LAB DATA: EKG initially showed atrial flutter at [address] depressions in V3 through V6 and ST elevation in aVR; ST depressions in II, III, and aVF as well. A subsequent EKG showed atrial flutter with normal axis, normal intervals, no ST or T-wave changes with upright T waves in V1 through V6 and slight ST depression in V4 through V6, T-wave inversions in II, III, and aVF. Chest x-ray shows cardiomegaly, hyperinflated lungs, no effusions or consolidations. ASSESSMENT AND PLAN: This is a 64-year-old man with history of end-stage renal disease, coronary artery disease, who presented to the emergency department with chest and arm pain. STEMI was called in the emergency department but Dr. Patel felt this was more support representative of an non-ST segment elevation myocardial infarction. 1. Acute coronary syndrome with a non-ST segment elevation myocardial infarction. He has received aspirin, a heparin drip, and a beta-kedar in the emergency department. He is currently chest pain free. His troponin is 0.76. We will trend his troponins, admit him to the intensive care unit, place him on a heparin drip, and consult with Cardiology again in the morning. He is already medically optimized at home on aspirin, Plavix, beta-kedar, statin, and Imdur. I will defer further workup and imaging to Cardiology in regards to a stress test versus echo versus repeat catheterization. 2. End-stage renal disease. He underwent his normally scheduled dialysis this morning and it was uneventful. He appears euvolemic at this time. I will continue him on his usual schedule. 3. Hypertension. Continue home antihypertensives. 4. Feeling ill. I suspect his prodrome of not feeling well over the past few days was related to the coronary event; however, I will also check a flu swab given season and his vague symptoms. 5. Dizziness. I will check a CT brain despite a normal neurologic exam since we are starting a heparin drip to rule out a stroke or a bleed. He is a high risk given his vascular history. 6. Anemia of chronic disease. 7. DVT prophylaxis: Contraindicated in heparin. 8. Full code. [id number] #: [id number] MTDD
[2020-01-26 09:07] LABS: Troponin I 2.01 ng/mL (<0.03)
[2020-01-26] MEDS: Magnesium Oxide TAB* 400 MG PO SCH (09:18)
[2020-01-26] MEDS: busPIRone TAB* 10 MG PO SCH ×2 (09:18→20:35)
[2020-01-26] MEDS: Furosemide TAB* 40 MG PO SCH ×2 (09:18→20:35)
[2020-01-26] MEDS: Aspirin EC TAB* 81 MG TAB.EC PO SCH (09:18)
[2020-01-26] MEDS: Sertraline* 50 MG TAB PO SCH (09:18)
[2020-01-26] MEDS: hydrALAZINE TAB* 100 MG ** ONE HUNDRED PO SCH ×3 (09:31→21:02)
[2020-01-26] MEDS: Lisinopril TAB* 5 MG PO SCH (09:32)
[2020-01-26] MEDS: MinoXIDil TAB* 2.5 MG TAB PO SCH ×2 (09:32→21:02)
[2020-01-26] MEDS: Metoprolol Succinate XL TAB* 25 MG PO SCH (09:32)
[2020-01-26] MEDS: Isosorbide Mononitrate ER TAB* 60 MG PO SCH ×2 (09:33→20:35)
[2020-01-26] MEDS ORDERED: Potassium Chlor TAB* 10 MEQ TAB.ER PO ONE (09:33)
[2020-01-26] MEDS: Clopidogrel TAB* 75 MG PO SCH (09:56)
[2020-01-26 10:45] LABS: TSH (Thyroid Stimulating Horm) 1.71 mcIU/mL (0.34-5.60)
[2020-01-26 10:47] LABS: Free T3 2.6 pg/mL (2.5-3.9)
[2020-01-26 10:54] LABS: Free T4 0.87 ng/dL (0.61-1.12)
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
--- NOTE | 2020-01-26 12:56 | CONS ---
CC: Dr. Lg Beltre; Dr. Caban * CONSULTATION REPORT: DATE OF CONSULT: 01/26/20 PRIMARY TABLE WORKER: Dr. Lg Beltre. PRIMARY PHYSICIAN: Dr. Caban. ATTENDING PHYSICIAN: Dr. Micheal Salvador.* (DICTATED BY NICHOLE HOFFMAN NP) REASON FOR CONSULTATION: A-flutter, troponin elevation, EKG changes. CHIEF COMPLAINT: Right shoulder pain radiating into chest with lightheadedness and dyspnea. HISTORY OF PRESENT ILLNESS: This is a pleasant 64-year-old male patient who follows Dr. Lg Beltre of our practice due to a notable history of coronary artery disease with remote bypass in 2002 that resulted in MARTINEZ to LAD, free radial graft to right PDA (with subsequent intervention in May of 2019 that resulted in PTCA/MARGARET to the proximal portion of the free right artery graft to PDA); subsequent complex stenting to ramus and proximal left circumflex in June of 2019; prior CVA, prior left MCA stent; prior PFO closure; prior GI bleed while on NSAID, aspirin 325, and clopidogrel therapy in February 2018; end- stage renal disease, on hemodialysis every Saturday, Saturday, Saturday; carotid artery disease; intermittent thrombocytopenia. The patient presented to [facility] early this morning around 0243 due to complaints of right shoulder discomfort radiating into his right upper extremity and right anterior chest with associated dyspnea. The patient states it woke him up some sleeping around 0100. He took 1 nitroglycerin that he states was with no improvement, thus he opted to be evaluated in the emergency room. He states that since Saturday he has been noticing intermittent dizziness specifically while bending down. Yesterday while at hemodialysis, they discontinued his amlodipine therapy. He denies any other recent medication changes and states he is compliant with medications. Denies syncope, palpitations, sensation of heart racing, irregular heart rate, pedal edema. In the past, he has had a hard time differentiating angina from his known right rotator cuff injury. He offers no other complaints at this time. He states otherwise he has been doing clinically well; denies any recent illness , infection, or recent hospitalization. Last echocardiogram 02/17/19; per report, LVEF 55% to 60% mild LVH, severe left atrial dilatation, moderate right ventricle dilatation, no evidence of aortic stenosis, trace aortic insufficiency, [id number] mitral insufficiency, mild tricuspid regurgitation, mild pulmonary hypertension. Last ischemic evaluation via left heart catheterization 07/02/19 due to NSTEMI; per report, the patient underwent successful complex bifurcation revascularization of the ramus and proximal left circumflex. Drug-eluting stent to ramus was 2.75 x 30 mm drug-eluting stent. Drug-eluting stent to proximal left circumflex was 3 x 12 mm drug-eluting stent. His previously placed stent to proximal free graft of right PDA was patent at that time. His left main had distal mild irregularity, no significant stenosis. LAD was occluded proximally as it was prior, there was collateral filling of the diagonal. The circumflex just beyond the ramus had 40% stenosis. PAST MEDICAL HISTORY: 1. Coronary artery disease. 2. Prior bypass in 2002. 3. Hypertension. 4. Hyperlipidemia. 5. Diastolic heart failure. 6. CVA. 7. PFO closure. 8. End-stage renal disease, on hemodialysis every Saturday, Saturday, Saturday. 9. Known sinus luc disease, intolerant to Brilinta therapy. 10. Intermittent thrombocytopenia. 11. Melanoma. 12. Nxas-qe-kkhytjwv mitral insufficiency. 13. Pulmonary hypertension. 14. Type 2 diabetes. 15. Obstructive sleep apnea. 16. Anemia of chronic disease. 17. Prior GI bleed, February 2018 while on aspirin 325, clopidogrel 75 and NSAID therapy. 18. Carotid artery disease. PAST SURGICAL HISTORY: Includes: 1. Prior PFO closure. 2. Bypass 2002, MARTINEZ to LAD, free radial artery graft to right PDA. 3. Left MCA stent. 4. Prior cardiac catheterization, most recent June 2019. 5. Right fistula graft for dialysis. HOME MEDICATIONS: Per admission med rec includes: 1. Hydralazine 100 mg p.o. t.i.d. 2. Vitamin C 1000 mg p.o. daily. 3. Tylenol with codeine 1 tab q.8h. p.r.n. 4. Aspirin 81 mg a day. 5. Buspirone 10 mg p.o. b.i.d. 6. Vitamin D3 2000 units p.o. daily. 7. Clopidogrel 75 mg a day. 8. Finasteride 5 mg a day. 9. Lasix 40 mg p.o. b.i.d. 10. Imdur 120 mg p.o. b.i.d. 11. Lisinopril 5 mg a day. 12. Mag oxide 400 mg a day. 13. Toprol 12.5 mg a day. 14. Minoxidil 2.5 mg p.o. b.i.d. 15. Nitroglycerin 0.4 mg p.o. q.5-minute p.r.n. 16. Vauxhall-3 1000 mg p.o. t.i.d. 17. Pepcid 20 mg p.o. every other day. 18. Rosuvastatin 40 mg a day. 19. Sertraline 50 mg a day. 20. Hytrin 5 mg a day. 21. Vitamin B complex daily. FAMILY HISTORY: Noncontributory. SOCIAL HISTORY: The patient is disabled, , lives at home with his Malka, is listed as a full code. Former tobacco user, drinks alcohol socially, denies illegal drug use. Lives a fairly sedentary lifestyle. REVIEW OF SYSTEMS: All systems have been reviewed and otherwise negative except as mentioned in the HPI. PHYSICAL EXAMINATION: Pulse 64, respirations 12, oxygenation 95% on room air, blood pressure 154/76. The patient is lying upright in bed talking to his on his phone, appears in no apparent distress. He is cooperative, well nourished, A and O x3. HEENT: Head is atraumatic, normocephalic. Oral mucosa is moist. Tongue is midline. Neck: Supple. Trachea midline. Unable to assess for JVD. No carotid bruit. No thyromegaly. Cardiac: Normal S1, S2. Irregular rate and rhythm. No murmur, gallop, or rub noted. Lungs: Auscultated posteriorly. No evidence of adventitious breath sounds. Respirations are nonlabored. /GI: Abdomen is protuberant, nontender, nondistended. Normoactive bowel sounds x4. No hepatomegaly to palpation. Extremities: No pedal edema, no clubbing, no cyanosis. Positive varicose veins noted in right lower extremity. Peripheral vascular: 3+ radial pulse palpated bilaterally symmetrically. Right fistula positive thrill. Skin: Intact. No evidence of jaundice appreciated. DIAGNOSTIC STUDIES/LAB DATA: Blood work; reviewed. White count is 7.4, hemoglobin 9.9, hematocrit 29, platelets 176. INR 0.97. Sodium 136, potassium 3.5, chloride 96, carbon dioxide 27, BUN 46, creatinine 5.5, glucose 132. Troponin #3 is 2.01. BNP 947. LDL 54. Influenza A and B are negative. ECG 01/26/20 at 0226; reviewed. A-flutter, rate [address]- segment depression appreciated most noticeable in lateral leads up to 2 mm. ECG 01/25/19 at 0731; A-flutter, rate [address]-segment depression in lateral leads, the lowest 1 mm. Echocardiogram pending. Brain CT 01/25/19; no acute intracranial abnormality. Prior vascular stent was noted in the left medial cerebral artery. ASSESSMENT AND PLAN: 1. Non-ST elevation myocardial infarction; likely type 2 given the patient presented with atrial flutter with rapid ventricular response. The patient had rate-related ST-segment depression noted in inferolateral leads that did improve once ventricular rates were controlled. He has not had recurrent right shoulder pain radiating into his chest since presentation. In the past, anginal equivalent was right shoulder pain radiating into the chest although he has a known right rotator cuff injury, which makes it difficult to discern. The patient has a known residual diagonal lesion that was treated medically. He is status post complex bifurcation revascularization of ramus and proximal left circumflex June of 2019 with previously placed drug-eluting stent to free radial artery graft to right PDA May of 2019. Subsequently, we recommend resuming Plavix 75 mg a day in combination with aspirin 81 mg a day. Troponin has not peaked. We would recommend continuing to cycle isoenzymes. The patient has not had recurrent discomfort since presentation early this morning. We will update nuclear stress test tomorrow 01/27/20 and make further recommendations. We will update echocardiogram to rule out focal wall motion abnormality. Continue Imdur and metoprolol therapy. Unfortunately due to previously known sinus node disease, he is intolerant to higher doses of AV luc agents and was intolerant to Brilinta due to bradycardia. We will follow closely. 2. Newly found atrial flutter; presented with rapid ventricular rate response. The patient currently has controlled ventricular rate. Has had lightheadedness and dizziness since Saturday. Duration of time in atrial flutter is unknown given the patient is currently asymptomatic; however, I did personally serially trend his previous ECGs and telemetry and did not see any prior medical documentation of atrial flutter or atrial fibrillation. CHADS-VASc is greater than 7 given history of hypertension, vascular disease, prior cerebrovascular accident, diabetes. Thus, the patient will need to be on Coumadin therapy with a goal INR of 2 to 3. However, currently he is on IV heparin therapy, which we would recommend continuing at this time until ischemic evaluation is completed. The patient had non-ST elevation myocardial infarction in May and June of 2019 with a known history of recurrent in-stent stenosis involving his free right radial PDA graft. As a result, we would recommend clopidogrel 75 mg a day in combination with Coumadin prior to discharge and discontinuing aspirin; however, we will follow isoenzymes and make formal recommendations post ischemic evaluation. Ventricular rates are currently controlled on current metoprolol dose. In the past, he has not tolerated higher doses of metoprolol or Brilinta due to bradycardia. It is possible he may need an eventual permanent pacemaker due to previously known SA luc disease. In addition, he has had intermittent nonsustained ventricular tachycardia that requires metoprolol. Again, we will make final recommendations post ischemic evaluation on 01/27/20. We will update TFTs. 3. Nonsustained ventricular tachycardia; the patient is asymptomatic. We will replace potassium, recommend keeping K greater than 4, mag greater than 2 on metoprolol 12.5 mg a day; in the past, did not tolerate higher doses due to SA luc disease. 4. End-stage renal disease, on hemodialysis every Saturday, Saturday, Saturday. Defer to primary team. Last hemodialysis was 01/25/20. 5. History of coronary artery disease with remote bypass in 2002, MARTINEZ to LAD, free right radial to right PDA with subsequent intervention due to in-stent restenosis to right radial graft to PDA most recent May of 2019 in addition to complex bifurcating stenting to proximal left circumflex and ramus June of 2019. Historically an aspirin and clopidogrel therapy given newly found atrial flutter. The patient will require oral anticoagulation. For this current time, we will continue Plavix, aspirin, and IV heparin; however; prior to discharge, the patient will likely go home on clopidogrel in combination with Coumadin therapy. Continue statin and metoprolol therapy. We will follow post ischemic evaluation 01/27/20. 6. Disposition pending course. The patient is full code. Dr. Micheal Salvador has personally seen and examined the patient and agrees with the above assessment and plan. Any future questions or concerns, please do not hesitate to contact our practice. NICHOLE HOFFMAN NP [id number]/GUANAKITO #: [id number] KIKI
[2020-01-26 14:29] LABS: Troponin I 3.55 ng/mL (<0.03)
--- NOTE | 2020-01-26 15:06 | PN ---
Date of Service: 01/26/20 Critical Care Services: Patient seen and examined. He is currently chest pain free. Denies any SOB, although he is currently on 2L NC oxygen. He denies palpitations, but remians in an aflutter rhythm on telemetry. Rate is controlled. He does not have any further complaints today. He does seem frustrated that he had chest pain again and is concerned about his clinical course. Vital Signs: Temp Pulse Resp BP SpO2 FiO2 98 F 61 19 147/80 93 01/26/20 12:00 01/26/20 14:00 01/26/20 14:00 01/26/20 14:01/26/20 14:00 Physical Exam: General: Alert, NAD HEENT: Normocephalic, atraumatic, non-icteric sclera, moist oral mucosa Neck: soft, supple, no JVD CV: Regular rate and rhythm, no murmurs or rubs Pulm/Chest: Good bilateral air entry, diminished bases with mild rales, no rhonchi, no wheeze Abdomen/GI: soft, nontender, nondistended, +BS noted MSK/Skin: warm, dry, intact, +2 pulses+, no edema or cyanosis Neuro: A&Ox3, no gross focal deficits Psych: Appropriate affect Fluid Balance (Past 24 Hours): Intake & Output 01/24/20 01/25/20 01/26/20 01/27/20 06:59 06:59 06:59 06:59 Intake Total 0 846 Output Total 750 Balance 0 96 Weight 224 lb 13.944 oz 224 lb Intake: Medicated IV 186 heparin 186 Oral 0 660 Output: Chauhan 750 Other: # Bowel Movements 0 Labs: Laboratory Results - last 24 hr 01/26/20 01/26/20 01/26/20 02:29 02:29 02:29 WBC 5.8 RBC 3.26 L Hgb 10.0 L Hct 30 L MCV 92 MCH 31 MCHC 34 RDW 14 Plt Count 192 MPV 8.5 Neut % (Auto) 63.9 Lymph % (Auto) 22.8 Jefferson % (Auto) 9.6 Eos % (Auto) 3.1 Baso % (Auto) 0.6 Absolute Neuts (auto) 3.7 Absolute Lymphs (auto) 1.3 Absolute Monos (auto) 0.6 Absolute Eos (auto) 0.2 Absolute Basos (auto) 0.0 Absolute Nucleated RBC 0.0 Nucleated RBC % 0.0 INR (Anticoag Therapy) 0.97 APTT 32.9 Sodium 136 Potassium 3.5 Chloride 96 L Carbon Dioxide 27 Anion Gap 13 H BUN 43 H Creatinine 5.43 H Est GFR ( Amer) 12.8 Est GFR (Non-Af Amer) 10.6 BUN/Creatinine Ratio 7.9 L Glucose 132 H Calcium 8.6 Total Bilirubin 0.70 AST 39 ALT 36 Alkaline Phosphatase 80 Total Creatine Kinase 165 CK-MB (CK-2) 3.6 Myoglobin 236.5 H Troponin I 0.76 H* B-Natriuretic Peptide Total Protein 6.5 Albumin 4.2 Globulin 2.3 Albumin/Globulin Ratio 1.8 Triglycerides 170 Cholesterol 125 LDL Cholesterol 54 HDL Cholesterol 37.4 TSH Free T4 Free T3 Influenza A (Rapid) Influenza B (Rapid) 01/26/20 01/26/20 01/26/20 02:29 05:05 05:30 WBC RBC Hgb Hct MCV MCH MCHC RDW Plt Count MPV Neut % (Auto) Lymph % (Auto) Jefferson % (Auto) Eos % (Auto) Baso % (Auto) Absolute Neuts (auto) Absolute Lymphs (auto) Absolute Monos (auto) Absolute Eos (auto) Absolute Basos (auto) Absolute Nucleated RBC Nucleated RBC % INR (Anticoag Therapy) APTT 78.5 H Sodium Potassium Chloride Carbon Dioxide Anion Gap BUN Creatinine Est GFR ( Amer) Est GFR (Non-Af Amer) BUN/Creatinine Ratio Glucose Calcium Total Bilirubin AST ALT Alkaline Phosphatase Total Creatine Kinase CK-MB (CK-2) Myoglobin Troponin I B-Natriuretic Peptide 947 H Total Protein Albumin Globulin Albumin/Globulin Ratio Triglycerides Cholesterol LDL Cholesterol HDL Cholesterol TSH Free T4 Free T3 Influenza A (Rapid) Negative Influenza B (Rapid) Negative 01/26/20 01/26/20 01/26/20 05:30 05:30 08:35 WBC 7.4 RBC 3.13 L Hgb 9.9 L Hct 29 L MCV 92 MCH 32 H MCHC 35 RDW 14 Plt Count 176 MPV 8.9 Neut % (Auto) 80.1 Lymph % (Auto) 12.5 Jefferson % (Auto) 6.2 Eos % (Auto) 0.8 Baso % (Auto) 0.4 Absolute Neuts (auto) 5.9 Absolute Lymphs (auto) 0.9 L Absolute Monos (auto) 0.5 Absolute Eos (auto) 0.1 Absolute Basos (auto) 0.0 Absolute Nucleated RBC 0.0 Nucleated RBC % 0.0 INR (Anticoag Therapy) APTT Sodium Potassium Chloride Carbon Dioxide Anion Gap BUN 46 H Creatinine 5.52 H Est GFR ( Amer) 12.6 Est GFR (Non-Af Amer) 10.4 BUN/Creatinine Ratio Glucose Calcium Total Bilirubin AST ALT Alkaline Phosphatase Total Creatine Kinase CK-MB (CK-2) Myoglobin Troponin I 1.02 H* 2.01 H* B-Natriuretic Peptide Total Protein Albumin Globulin Albumin/Globulin Ratio Triglycerides Cholesterol LDL Cholesterol HDL Cholesterol TSH Free T4 Free T3 Influenza A (Rapid) Influenza B (Rapid) 01/26/20 01/26/20 01/26/20 09:40 09:40 13:55 WBC RBC Hgb Hct MCV MCH MCHC RDW Plt Count MPV Neut % (Auto) Lymph % (Auto) Jefferson % (Auto) Eos % (Auto) Baso % (Auto) Absolute Neuts (auto) Absolute Lymphs (auto) Absolute Monos (auto) Absolute Eos (auto) Absolute Basos (auto) Absolute Nucleated RBC Nucleated RBC % INR (Anticoag Therapy) APTT 47.6 H Sodium Potassium Chloride Carbon Dioxide Anion Gap BUN Creatinine Est GFR ( Amer) Est GFR (Non-Af Amer) BUN/Creatinine Ratio Glucose Calcium Total Bilirubin AST ALT Alkaline Phosphatase Total Creatine Kinase CK-MB (CK-2) Myoglobin Troponin I 3.55 H* B-Natriuretic Peptide Total Protein Albumin Globulin Albumin/Globulin Ratio Triglycerides Cholesterol LDL Cholesterol HDL Cholesterol TSH 1.71 Free T4 0.87 Free T3 2.60 Influenza A (Rapid) Influenza B (Rapid) Studies: Patient Name: SCOTT FELIZ Medical Record#: [id number] Ordering Physician: Carie Piedra MD Acct.#: [id number] : 1955 Age: 64 Sex: M Location: [facility] Exam Date: 01/26/20227 ADM Status: ADM IN Order Information: CHEST AP/PORT Accession Number: [id number] CPT: 27752 HISTORY: chest pain COMPARISONS: June 18, 2019 VIEWS: 1: frontal AP view of the chest at 2:33 AM FINDINGS: LINES AND TUBES: None. CARDIOMEDIASTINAL SILHOUETTE: The cardiac silhouette is mildly enlarged. The cardiomediastinal silhouette is otherwise normal for portable technique. PLEURA: The costophrenic angles are sharp. No pleural abnormalities are noted. LUNG PARENCHYMA: There is prominence of the central pulmonary vasculature. ABDOMEN: The upper abdomen is clear. There is no subphrenic gas. BONES AND SOFT TISSUES: The patient is status post median sternotomy. IMPRESSION: MILD CARDIOMEGALY WITH PULMONARY VASCULAR CONGESTION. R2 Preliminary Imaging Read R2 Patient Name: SCOTT FELIZ Medical Record#: [id number] Ordering Physician: Ashley Bunn DO Acct.#: [id number] : 1955 Age: 64 Sex: M Location: [facility] Exam Date: 01/26/20518 ADM Status: ADM IN Order Information: CT BRAIN WO Accession Number: [id number] CPT: 42707 PROCEDURE INFORMATION: Exam: CT Head Without Contrast Exam date and time: 01/26/2020 5:57 AM Age: 64 years old Clinical indication: Weakness, facial TECHNIQUE: Imaging protocol: Computed tomography of the head without contrast. Radiation optimization: All CT scans at this facility use at least one of these dose optimization techniques: automated exposure control; mA and/or kV adjustment per patient size (includes targeted exams where dose is matched to clinical indication); or iterative reconstruction. COMPARISON: BRAIN WO CT BRAIN WO 02/22/2016 12:04 PM FINDINGS: Brain: There is mild diffuse cerebral atrophy present, consistent with this patient's age. No hemorrhage. There is mild diffuse heterogeneity of the white matter attenuation, consistent with chronic white matter ischemic changes. No mass effect. There is a vascular stent noted within the left middle cerebral artery. Ventricles: Normal. No ventriculomegaly. Bones/joints: Unremarkable. No acute fracture. Sinuses: Visualized sinuses are unremarkable. No fluid levels. Mastoid air cells: Visualized mastoid air cells are well aerated. Soft tissues: Unremarkable. IMPRESSION: No acute intracranial abnormality. Dictated and Authenticated by: Dejan Benedict MD 01/26/2020 6:46 AM Eastern Time ([place] and [place]) To contact [facility] with a general question: Operations Center - [phone] For direct physician to physician contact: Physician Hotline - [phone] [facility] ([facility] Facility ID #[id number]) Nutrition: Heart healthy diet Impression: This is a 64 year old male with complex history of CAD, CABG, HTN, diastolic HF , PFO with closure, ESRD on HD, DMII, GIB, HOWARD and anemia that presented to the ED with complaints of shoulder pain, right chest pain and dyspnea. Diagnoses: 1. ACS/NSTEMI 2. New onset aflutter 3. ESRD on HD Plan: Neuro - No active issues, dizziness at admission likely 2/2 arrhythmia and cardiac ischemia - CT head as above with no acute pathology CV - POC as per cardiology - Plan for saira tomorrow - Trops continue to rise, 3.55 at last check, but pain free - Continue asa, plavix and heparin gtt, bridge to coumadin, expect to DC off asa at discharge but will defer to cardiology - May need device given sinus node dysfunction - Cardiology may consider BERRY cardioversion for aflutter, will defer to their plan post lexiscan, currently rate controlled Pulm - Maintain sats >92%, no active issues ID - No active issues GI - HH diet - Will start PPI given DAPT and history of GIB in the past - Daily weights Renal - strict I/O, replete to keep K>4, Mg>2 - Continue HD MWF - Continue chauhan as indicated Heme - Goal H&H >07/21, maintaining Endo - Maintain BG<200, insulin protocol if needed Musculsk/SKIN - pressure ulcer prophylaxis - Bedrest until clear by cardio DVT prophylaxis: heparin gtt GI prophylaxis: PPI Central Line: none Disposition: Patient requires Critical Care/ICU for evolving ACS/NSTEMI with potential intervention Patient clinical status: Fair Code Status: Full code Total Critical Care time is 45 minutes
[2020-01-26] MEDS: Pantoprazole TAB * 40 MG TAB PO SCH (17:25)
--- NOTE | 2020-01-26 17:48 | PN ---
Progress Note - Progress Note Date of Service: 01/26/20 Note: Cc: ESRD Interval history: I saw Mr. Watson today in the ICU. He was in no acute distress at the time of my visit. He was up in the chair pleasant and conversant. He came to the emergency room last night because of sudden onset of severe right shoulder pain which woke him up from sleep. He does have a history of Right rotator cuff syndrome with the chronic pain. He also felt that he had chest pain and he asked his to take him to the emergency room. He ruled in for an NSTEMI. He feels well at the time of my visit. He denies any chest pain. Currently on heparin drip. Plan is for either stress test or cardiac cath tomorrow. I spoke with the [facility] cardiology BUSINESS INTELLIGENCE DEVELOPER. The plan is for possible anticoagulation because of rapid A. flutter on admission. He has paroxysmal A. flutter. Decided that we will add Eliquis 2.5 mg by mouth twice a day. He is already on clopidogrel. Plan is for dialysis probably around noontime after his cardiology investigations will be completed. Patient tells me he got potassium supplement today. Review of systems: No fevers, chills, loss of appetite No chest pain at the time of my exam. No shortness of breath, no cough or sputum production. No abdominal pain nausea vomiting or diarrhea. Todays labs show her hemoglobin to 9.9, however blood cell count of 7.4, platelets 176, sodium of 135, potassium of 3.5. Troponin I was trended and has been continuous increased from 0.76 on admission to 3.55 at 2 PM today. On physical exam: Blood pressure is 154/79, heart rate 60 bpm, respiratory rate 16/min, oxygen saturation 93% on room air. He is in no acute distress at the time of my exam, pleasant and conversant. He has trace to +1 lower extremities edema. He is alert and oriented 3, mood is normal judgment and insight appropriate. He is grossly nonfocal speech is fluent and he has no tremor. meds: Acetaminophen/Codeine Phosphate (Tylenol/Codeine 30 Mg Tab*) 1 tab PO Q8H PRN PRN Reason: PAIN - MODERATE Al Hydrox/Mg Hydrox/Simethicone (Maalox Plus*) 30 ml PO Q6H PRN PRN Reason: INDIGESTION Aspirin (Aspirin Ec Tab*) 81 mg PO DAILY [facility] Last Admin: 01/26/20 09:18 Dose: 81 mg Atorvastatin Calcium (Lipitor*) 80 mg PO BEDTIME [facility] Buspirone HCl (Buspar Tab*) 10 mg PO BID [facility] Last Admin: 01/26/20 09:18 Dose: 10 mg Clopidogrel Bisulfate (Plavix Tab*) 75 mg PO DAILY [facility] Last Admin: 01/26/20 09:56 Dose: 75 mg Finasteride (Proscar Tab*) 5 mg PO BEDTIME [facility] Furosemide (Lasix Tab*) 40 mg PO BID [facility] Last Admin: 01/26/20 09:18 Dose: 40 mg Heparin Sodium (Porcine) (Heparin Vial(*)) 0 units IV .BOLUS PRN PRN Reason: HEPARIN DRIP PROTOCOL Last Admin: 01/26/20 04:00 Dose: 4,000 units Hydralazine HCl (Apresoline Tab*) 100 mg PO TID [facility] Last Admin: 01/26/20 17:26 Dose: 100 mg Heparin Sodium/Dextrose (Heparin Drip 25,000 Units(*)) 25,000 units in 500 mls @ 0 mls/hr IV PER RATE [facility]; Protocol Last Admin: 01/26/20 03:58 Dose: 20 mls/hr Isosorbide Mononitrate (Imdur Er Tab*) 120 mg PO BID [facility] Last Admin: 01/26/20 09:33 Dose: 120 mg Lisinopril (Prinivil Tab*) 5 mg PO QAM [facility] Last Admin: 01/26/20 09:32 Dose: 5 mg Magnesium Oxide (Magox 400 Tab*) 400 mg PO QAM [facility] Last Admin: 01/26/20 09:18 Dose: 400 mg Metoprolol Succinate (Toprol Xl Tab*) 12.5 mg PO DAILY [facility] Last Admin: 01/26/20 09:32 Dose: 12.5 mg Minoxidil (Loniten Tab*) 2.5 mg PO BID [facility] Last Admin: 01/26/20 09:32 Dose: 2.5 mg Nitroglycerin (Nitroglycerin Tab 0.4 Mg*) 0.4 mg SL Q5M PRN PRN Reason: ANGINA Pantoprazole Sodium (Protonix Tab*) 40 mg PO DAILY [facility] Last Admin: 01/26/20 17:25 Dose: 40 mg Sertraline HCl (Zoloft*) 50 mg PO QAM [facility] Last Admin: 01/26/20 09:18 Dose: 50 mg Terazosin HCl (Hytrin Cap*) 5 mg PO BEDTIME [facility] Assessment and plan: 1. End-stage kidney disease on hemodialysis Saturday. We will do hemodialysis tomorrow. Please do not supplement potassium postdialysis. 2. Hypertension seems to be reasonable control. I will leave it up to cardiology if they want to decrease his blood pressure. 3. Non-ST elevation [place]. Probably cardiac cath tomorrow 4. Atrial flutter. Prefer anticoagulation with Eliquis 2.5 mg by mouth twice a day. Brenda Sotelo MD Nephrology
[2020-01-26] MEDS: Terazosin CAP* 5 MG PO SCH (20:35)
[2020-01-26] MEDS: Atorvastatin* 80 MG TAB PO SCH (20:35)
[2020-01-26] MEDS: Finasteride TAB* 5 MG PO SCH (20:35)
[2020-01-26 21:13] LABS: Troponin I 3.33 ng/mL (<0.03)
[2020-01-27] MEDS: Heparin DRIP 25,000 UNITS(*) 25,000 UNITS/500 ML BAG IV SCH ×2 (01:28→17:24)
[2020-01-27 05:15] LABS: ABS Eosinophils 0.2 10^3/ul (0-0.6); ABS Lymphocytes 0.7 10^3/ul (1.0-4.8); ABS Monocytes 0.7 10^3/ul (0-0.8); ABS Neutrophils 7.3 10^3/ul (1.5-7.7); Eosinophil % 1.8 %; Hematocrit 27 % (42-52); Hemoglobin 9.3 g/dL (14.0-18.0); Lymphocyte % 7.7 %; Mean Corpuscular HGB Conc 34 g/dL (31-36); Mean Corpuscular Hemoglobin 31 pg (27-31); Mean Corpuscular Volume 92 fL (80-94); Mean Platelet Volume 8.4 fL (7.4-10.4); Platelet Count 157 10^3/uL (150-450); Red Blood Count 2.98 10^6 /uL (4.18-5.48); Red Cell Distribution Width 14 % (10-15); White Blood Count 8.8 10^3/uL (3.5-10.8)
--- NOTE | 2020-01-27 09:29 | PN ---
Progress Note - Progress Note Date of Service: 01/27/20 Note: Chief Complaint: End-stage kidney disease on hemodialysis Saturday Interval history: Mr. Watson had an uneventful night. He slept well. Denies any chest pain or shoulder pain this morning. No nausea, vomiting, constipation or diarrhea. His troponin levels kept increasing throughout the day yesterday and stabilized around 3. He will get further cardiac investigations today. He is on heparin drip. Today is his regular dialysis day. He is receiving maintenance hemodialysis at the time of my visit. I saw the patient during maintenance hemodialysis today. He started the treatment without any problems. Running well with a blood flow rate of 300 mL/ min. We decrease the blood flow because of his current cardiac status. I discussed the dialysis prescription with his dialysis nurse today. We will try to remove at least 1.5 L of volume. Hopefully he will tolerate this well without hemodynamic instability. Acitve meds : Acetaminophen/Codeine Phosphate (Tylenol/Codeine 30 Mg Tab*) 1 tab PO Q8H PRN PRN Reason: PAIN - MODERATE Al Hydrox/Mg Hydrox/Simethicone (Maalox Plus*) 30 ml PO Q6H PRN PRN Reason: INDIGESTION Aspirin (Aspirin Ec Tab*) 81 mg PO DAILY [facility] Last Admin: 01/26/20 09:18 Dose: 81 mg Atorvastatin Calcium (Lipitor*) 80 mg PO BEDTIME [facility] Last Admin: 01/26/20 20:35 Dose: 80 mg Buspirone HCl (Buspar Tab*) 10 mg PO BID [facility] Last Admin: 01/26/20 20:35 Dose: 10 mg Clopidogrel Bisulfate (Plavix Tab*) 75 mg PO DAILY [facility] Last Admin: 01/26/20 09:56 Dose: 75 mg Finasteride (Proscar Tab*) 5 mg PO BEDTIME [facility] Last Admin: 01/26/20 20:35 Dose: 5 mg Furosemide (Lasix Tab*) 40 mg PO BID [facility] Last Admin: 01/26/20 20:35 Dose: 40 mg Heparin Sodium (Porcine) (Heparin Vial(*)) 0 units IV .BOLUS PRN PRN Reason: HEPARIN DRIP PROTOCOL Last Admin: 01/26/20 23:04 Dose: 4,000 units Hydralazine HCl (Apresoline Tab*) 100 mg PO TID [facility] Last Admin: 01/26/20 21:02 Dose: 100 mg Heparin Sodium/Dextrose (Heparin Drip 25,000 Units(*)) 25,000 units in 500 mls @ 0 mls/hr IV PER RATE [facility]; Protocol Last Admin: 01/27/20 01:28 Dose: 36 mls/hr Isosorbide Mononitrate (Imdur Er Tab*) 120 mg PO BID [facility] Last Admin: 01/26/20 20:35 Dose: 120 mg Lisinopril (Prinivil Tab*) 5 mg PO QAM [facility] Last Admin: 01/26/20 09:32 Dose: 5 mg Magnesium Oxide (Magox 400 Tab*) 400 mg PO QAM [facility] Last Admin: 01/26/20 09:18 Dose: 400 mg Metoprolol Succinate (Toprol Xl Tab*) 12.5 mg PO DAILY [facility] Last Admin: 01/26/20 09:32 Dose: 12.5 mg Minoxidil (Loniten Tab*) 2.5 mg PO BID [facility] Last Admin: 01/26/20 21:02 Dose: 2.5 mg Nitroglycerin (Nitroglycerin Tab 0.4 Mg*) 0.4 mg SL Q5M PRN PRN Reason: ANGINA Pantoprazole Sodium (Protonix Tab*) 40 mg PO DAILY [facility] Last Admin: 01/26/20 17:25 Dose: 40 mg Sertraline HCl (Zoloft*) 50 mg PO QAM [facility] Last Admin: 01/26/20 09:18 Dose: 50 mg Terazosin HCl (Hytrin Cap*) 5 mg PO BEDTIME [facility] Last Admin: 01/26/20 20:35 Dose: 5 mg Labs: Hemoglobin is 9.3 g/dL, white blood cell count 8.8, platelets 157, last troponin from last night at 8 PM was 3.33. Physical exam: Blood pressure 145/72, respiration rate is 20/min, oxygen saturations 96% on room air, temperature 99.8 F No acute distress, pleasant and conversant. He has trace lower extremities edema. Alert and oriented 3, judgment and insight appropriate, mood is normal. Grossly nonfocal. Assessment and plan: 1. End-stage kidney disease on maintenance hemodialysis Saturday was a Saturday - Hemodialysis today. I saw the patient during hemodialysis today. 2. Non-ST elevation WA. No chest pain currently. On Heparin drip. 3. Hypertension: Well controlled. No changes
[2020-01-27] MEDS: Aspirin EC TAB* 81 MG TAB.EC PO SCH (09:46)
[2020-01-27] MEDS: Sertraline* 50 MG TAB PO SCH (09:46)
[2020-01-27] MEDS: Magnesium Oxide TAB* 400 MG PO SCH (09:46)
[2020-01-27] MEDS: Clopidogrel TAB* 75 MG PO SCH (09:46)
[2020-01-27] MEDS: Pantoprazole TAB * 40 MG TAB PO SCH (09:46)
[2020-01-27] MEDS: busPIRone TAB* 10 MG PO SCH ×2 (09:46→20:16)
--- NOTE | 2020-01-27 10:05 | PN ---
Subjective Date of Service: 01/27/20 - CC: right shoulder pain. In afib/flutter Interval History: The patient's right shoulder pain has resolved. Denies SOB, palpitations. He can't remember what his symptoms were pre CABG and stents. Medications Active Medications: Acetaminophen/Codeine Phosphate (Tylenol/Codeine 30 Mg Tab*) 1 tab PO Q8H PRN PRN Reason: PAIN - MODERATE Al Hydrox/Mg Hydrox/Simethicone (Maalox Plus*) 30 ml PO Q6H PRN PRN Reason: INDIGESTION Aspirin (Aspirin Ec Tab*) 81 mg PO DAILY [facility] Last Admin: 01/27/20 09:46 Dose: 81 mg Atorvastatin Calcium (Lipitor*) 80 mg PO BEDTIME [facility] Last Admin: 01/26/20 20:35 Dose: 80 mg Buspirone HCl (Buspar Tab*) 10 mg PO BID [facility] Last Admin: 01/27/20 09:46 Dose: 10 mg Clopidogrel Bisulfate (Plavix Tab*) 75 mg PO DAILY [facility] Last Admin: 01/27/20 09:46 Dose: 75 mg Finasteride (Proscar Tab*) 5 mg PO BEDTIME [facility] Last Admin: 01/26/20 20:35 Dose: 5 mg Furosemide (Lasix Tab*) 40 mg PO BID [facility] Last Admin: 01/26/20 20:35 Dose: 40 mg Heparin Sodium (Porcine) (Heparin Vial(*)) 0 units IV .BOLUS PRN PRN Reason: HEPARIN DRIP PROTOCOL Last Admin: 01/26/20 23:04 Dose: 4,000 units Hydralazine HCl (Apresoline Tab*) 100 mg PO TID [facility] Last Admin: 01/26/20 21:02 Dose: 100 mg Heparin Sodium/Dextrose (Heparin Drip 25,000 Units(*)) 25,000 units in 500 mls @ 0 mls/hr IV PER RATE [facility]; Protocol Last Admin: 01/27/20 01:28 Dose: 36 mls/hr Isosorbide Mononitrate (Imdur Er Tab*) 120 mg PO BID [facility] Last Admin: 01/26/20 20:35 Dose: 120 mg Lisinopril (Prinivil Tab*) 5 mg PO QAM [facility] Last Admin: 01/26/20 09:32 Dose: 5 mg Magnesium Oxide (Magox 400 Tab*) 400 mg PO QAM [facility] Last Admin: 01/27/20 09:46 Dose: 400 mg Metoprolol Succinate (Toprol Xl Tab*) 12.5 mg PO DAILY [facility] Last Admin: 01/26/20 09:32 Dose: 12.5 mg Minoxidil (Loniten Tab*) 2.5 mg PO BID [facility] Last Admin: 01/26/20 21:02 Dose: 2.5 mg Nitroglycerin (Nitroglycerin Tab 0.4 Mg*) 0.4 mg SL Q5M PRN PRN Reason: ANGINA Pantoprazole Sodium (Protonix Tab*) 40 mg PO DAILY [facility] Last Admin: 01/27/20 09:46 Dose: 40 mg Sertraline HCl (Zoloft*) 50 mg PO QAM [facility] Last Admin: 01/27/20 09:46 Dose: 50 mg Terazosin HCl (Hytrin Cap*) 5 mg PO BEDTIME [facility] Last Admin: 01/26/20 20:35 Dose: 5 mg Objective Vital Signs: Temp Pulse Resp BP Pulse Ox 99.8 F 93 20 145/72 96 01/27/20 07:57 01/27/20 06:00 01/27/20 06:00 01/27/20 06:00 01/27/20 06:00 Above vitals on HD, no BP meds today. Vital Signs - 12 hr Temp Pulse Resp BP Pulse Ox 01/27/20 07:57 99.8 F 01/27/20 06:00 93 20 145/72 96 01/27/20 05:01 112 27 121/71 96 01/27/20 05:00 98 21 93 01/27/20 04:01 106 28 129/82 96 01/27/20 04:00 99 23 94 01/27/20 03:34 98.7 F 01/27/20 03:01 93 25 131/82 94 01/27/20 03:00 98 20 94 01/27/20 02:00 102 22 126/79 93 01/27/20 01:00 87 24 129/80 95 01/27/20 00:09 93 24 96 01/27/20 00:01 87 27 157/70 97 01/27/20 00:00 98.5 F 100 22 97 01/26/20 23:52 27 01/26/20 23:01 94 20 131/77 94 01/26/20 23:00 85 15 95 Oxygen Devices in Use Now: Nasal Cannula Appearance: Ill appearing somewhat older gentleman getting dialysis, no acute distress. Eyes: No Scleral Icterus, PERRLA Ears/Nose/Mouth/Throat: Mucous Membranes Moist Neck: Trachea Midline, No Thyroid Enlargement, Masses Respiratory: Symmetrical Chest Expansion and Respiratory Effort, Clear to Auscultation Cardiovascular: NL Sounds; No Murmurs; No JVD - irregularly irregular. Abdominal: NL Sounds; No Tenderness; No Distention Extremities: No Edema - bounding PT pulses. Skin: No Rash or Ulcers Neurological: - - vague historian, states he has memory problems. speech articulate, follows commands in bed. Lines/Tubes/Other Access: Clean, Dry and Intact Peripheral IV, Clean, Dry and Intact Other Access - fistular RUE Laboratory Results: 01/27/20 05:03 01/26/20 05:30 INR (Anticoag Therapy) 0.97 (0.82-1.09) 01/26/20 02:29 APTT 83.4 seconds (26.0-38.0) H 01/27/20 05:03 Total Bilirubin 0.70 mg/dL (0.2-1.0) 01/26/20 02:29 AST 39 U/L (13-39) 01/26/20 02:29 ALT 36 U/L (7-52) 01/26/20 02:29 Alkaline Phosphatase 80 U/L (34-104) 01/26/20 02:29 CK-MB (CK-2) 3.6 ng/mL (0.6-6.3) 01/26/20 02:29 B-Natriuretic Peptide 947 pg/mL (<=100) H 01/26/20 02:29 Total Protein 6.5 g/dL (6.4-8.9) 01/26/20 02:29 Albumin 4.2 g/dL (3.2-5.2) 01/26/20 02:29 Globulin 2.3 g/dL (2-4) 01/26/20 02:29 Albumin/Globulin Ratio 1.8 (1-3) 01/26/20 02:29 Triglycerides 170 mg/dL 01/26/20 02:29 Cholesterol 125 mg/dL 01/26/20 02:29 LDL Cholesterol 54 mg/dL 01/26/20 02:29 HDL Cholesterol 37.4 mg/dL 01/26/20 02:29 TSH 1.71 mcIU/mL (0.34-5.60) 01/26/20 09:40 01/26/20 01/26/20 01/26/20 02:29 05:30 08:35 Troponin I 0.76 H* 1.02 H* 2.01 H* 01/26/20 01/26/20 13:55 20:00 Troponin I 3.55 H* 3.33 H* Diagnostic Imaging: *[facility]* [place] [address] Fax #: [phone] Transthoracic Echocardiogram Patient: Siva Feliz : 1955 Study Date: 01/26/2020 Age: 64 Gender: M HR: 60 bpm Height: 72 in /182.9 cm BSA: 2.24 m^2 Weight: 223.5 lb /101.6 kg BMI: 30.4 kg/m^2 *Baby Doctor: Kirsten Charlton [facility] *Referring Physician: * Amy Epperson *Reading Physician: * Micheal Salvador MD Indications: Myocardial Infarction (new). History: Patent foramen ovale, repaired. Coronary artery disease. Chronic renal disease. Risk factors: Hypertension. Dyslipidemia. Labs, prior tests, procedures, and surgery: Catheterization. There was a stenosis which was treated with a stent. Coronary artery bypass grafting. Conclusions Summary: - Left ventricle: The cavity size is at the upper limits of normal. Wall thickness is mildly to moderately increased. Systolic function is normal. The estimated ejection fraction is 55-60%. Wall motion is normal; there are no regional wall motion abnormalities. - Right ventricle: Systolic function is normal. - Left atrium: The atrium is severely dilated. - Atrial septum: A closure device is present. - Mitral valve: There is mild to moderate regurgitation. - Aortic valve: There is no evidence of stenosis. This report is only to be considered final once signed by the Provider(s) as displayed in the "<Electronically Signed by >" field (s). Absence of a signature indicates the report is in a draft status and still needs to be finalized. In the event this document was created by someone other than the signing Provider, the individual initiating the document will be listed in the "Entered by:" or "Dictated by:" ortiz. Patient Name: SIVA FELIZ Medical Record#: [id number] Ordering Physician: Carie Piedra MD Acct.#: [id number] : 1955 Age: 64 Sex: M Location: [facility] Exam Date: 01/26/20227 ADM Status: ADM IN Order Information: CHEST AP/PORT Accession Number: [id number] CPT: 56781 HISTORY: chest pain COMPARISONS: June 18, 2019 VIEWS: 1: frontal AP view of the chest at 2:33 AM FINDINGS: LINES AND TUBES: None. CARDIOMEDIASTINAL SILHOUETTE: The cardiac silhouette is mildly enlarged. The cardiomediastinal silhouette is otherwise normal for portable technique. PLEURA: The costophrenic angles are sharp. No pleural abnormalities are noted. LUNG PARENCHYMA: There is prominence of the central pulmonary vasculature. ABDOMEN: The upper abdomen is clear. There is no subphrenic gas. BONES AND SOFT TISSUES: The patient is status post median sternotomy. IMPRESSION: MILD CARDIOMEGALY WITH PULMONARY VASCULAR CONGESTION. R2 Preliminary Imaging Read R2 <Electronically signed by Julian Escalante MD in OV> 01/26/20745 Dictated By: Julian Escalante MD Dictated Date/Time: 01/26/20745 Transcribed Date/Time: 01/26/20745 Copy to: CC:Carie Piedra MD; Eric Gibson MD; Ashley Bunn DO; Micheal Salvador MD; Benjy Caban MD Imaging - [facility] Imaging - [facility] [address] [place] [address] ph ([phone]) ph ([phone]) ph ([phone]) This report is only to be considered final once signed by the Provider(s) as displayed in the "<Electronically Signed by >" field (s). Absence of a signature indicates the report is in a draft status and still needs to be finalized. In the event this document was created by someone other than the signing Provider, the individual initiating the document will be listed in the "Entered by:" or "Dictated by:" ortiz. 1 of 2 EKG Data: Addmission ECG 01/26/2020, Aflutter, RVR 115 bpm, LVH and sig. ST depression diffusely ECG 01/27/2020: Atrial flutter, variable block, V rate 103 bpm, LVH and repolarization changes, marked improvement in ST depression. Assessment/Plan Complex 64 yo who presented with R shoulder pain, mild progressive rise in troponins, new A. flutter unknown duration with RVR. Extensive PMHx including ESRD on HD, CAD with CABG,, carotid disease, PFO s/p closure, prior CVA, HTN, HFpEF, MR, DM, CHOL, HOWARD, hx GI bleed. CAD+ elevated troponins: -Back on plavix -LDL 54 on Lipitor. -Rate control is better with low dose Toprol and CP free. BB held this AM, I would increase to 25 mg/day. Determine intervention vs MM based on stress test, this could be demand ischemia from A.flutter with RVR and embolic event in the differential as well -computer terminal operator might be an ablation candidate as it is flutter, there are no good options for antiarrhythmic with RI and SSS combination. A. flutter -Newly heparinized. -I recommend BERRY guided CV as this is his first event and flutter will likely worsen pulmonary edema, but significant risk for recurrence. -Can only CV if can stay on coumodin at least a month after, aware of hx GI bleed in the past and current anemia noted. -Keep KCl 4-4.5, check Mag level post HD, ensure not high or low. Afternoon addendum: Stress test does not show any inducible ischemia, raw images show fixed apical defect, no reversable ischemia, EF 45%. I reviewed with interventional cardiology, looked at cath films, in agreement No cath planned at this point. for Atrial flutter I discussed with the patient's primary teller Dr Beltre who will be in tomorrow. No CV planned at this point, will increase rate control, will need chronic anticoagulation, Coumadin fine or could discuss OAC options with renal (Elibaylee ok?).
[2020-01-27] MEDS: hydrALAZINE TAB* 100 MG ** ONE HUNDRED PO SCH ×3 (11:39→22:51)
[2020-01-27] MEDS: Furosemide TAB* 40 MG PO SCH ×2 (11:39→20:16)
[2020-01-27] MEDS: Isosorbide Mononitrate ER TAB* 60 MG PO SCH ×2 (11:39→20:16)
[2020-01-27] MEDS: Metoprolol Succinate XL TAB* 25 MG PO SCH ×2 (11:39→17:32)
[2020-01-27] MEDS: MinoXIDil TAB* 2.5 MG TAB PO SCH ×2 (12:04→22:51)
[2020-01-27] MEDS: Lisinopril TAB* 5 MG PO SCH (12:04)
[2020-01-27] MEDS ORDERED: Regadenoson* 0.4 MG/5 ML SYRINGE ONE (12:50)
[2020-01-27] MEDS ORDERED: Aminophylline IV* 25 MG/ML 10 ML VIAL ONE (12:51)
--- NOTE | 2020-01-27 14:24 | PN ---
Date of Service: 01/27/20 Critical Care Services: Patient seen and examined. Having hemodialysis this AM without issue. Tolerating treatment well. Denies chest pain, no shoulder pain, denies SOB. No acute overnight events. Feeling at baseline. Pending lexiscan stress part two this afternoon. Vital Signs: Temp Pulse Resp BP SpO2 FiO2 98.3 F 82 19 130/62 94 01/27/20 11:19 01/27/20 12:15 01/27/20 12:15 01/27/20 12:15 01/27/20 12:15 Physical Exam: General: Alert, NAD HEENT: Normocephalic, atraumatic, non-icteric sclera, moist oral mucosa Neck: soft, supple, no JVD CV: Irregular rate and rhythm, flutter on tele, no murmurs or rubs Pulm/Chest: Good bilateral air entry, mild rales, no ronchi Abdomen/GI: soft, nontender, nondistended, +BS noted MSK/Skin: warm, dry, intact, +2 pulses+, no edema or cyanosis Neuro: A&Ox3, no gross focal deficits Fluid Balance (Past 24 Hours): Intake & Output 01/25/20 01/26/20 01/27/20 01/28/20 06:59 06:59 06:59 06:59 Intake Total 0 1782 Output Total 2049 350 Balance 0 -268 -350 Weight 224 lb 13.944 oz 227 lb 8.273 oz Intake: Medicated IV 597 heparin 597 Oral 0 1110 Chauhan Irrigate Amount 75 Output: Chauhan 2049 350 Other: Date of Last Bowel 01/26/2020 Movement # Bowel Movements 0 Labs: Laboratory Results - last 24 hr 01/26/20 01/26/20 01/26/20 13:55 15:34 20:00 WBC RBC Hgb Hct MCV MCH MCHC RDW Plt Count MPV Neut % (Auto) Lymph % (Auto) Kershaw % (Auto) Eos % (Auto) Baso % (Auto) Absolute Neuts (auto) Absolute Lymphs (auto) Absolute Monos (auto) Absolute Eos (auto) Absolute Basos (auto) Absolute Nucleated RBC Nucleated RBC % APTT 45.9 H Troponin I 3.55 H* 3.33 H* 01/26/20 01/27/20 01/27/20 22:06 05:03 05:03 WBC 8.8 RBC 2.98 L Hgb 9.3 L Hct 27 L MCV 92 MCH 31 MCHC 34 RDW 14 Plt Count 157 MPV 8.4 Neut % (Auto) 82.1 Lymph % (Auto) 7.7 Kershaw % (Auto) 8.1 Eos % (Auto) 1.8 Baso % (Auto) 0.3 Absolute Neuts (auto) 7.3 Absolute Lymphs (auto) 0.7 L Absolute Monos (auto) 0.7 Absolute Eos (auto) 0.2 Absolute Basos (auto) 0.0 Absolute Nucleated RBC 0.0 Nucleated RBC % 0.0 APTT 37.4 83.4 H Troponin I 01/27/20 01/27/20 12:10 12:10 WBC RBC Hgb Hct MCV MCH MCHC RDW Plt Count MPV Neut % (Auto) Lymph % (Auto) Kershaw % (Auto) Eos % (Auto) Baso % (Auto) Absolute Neuts (auto) Absolute Lymphs (auto) Absolute Monos (auto) Absolute Eos (auto) Absolute Basos (auto) Absolute Nucleated RBC Nucleated RBC % APTT 68.6 H Troponin I 1.80 H* Studies: Patient Name: SCOTT FELIZ Medical Record#: [id number] Ordering Physician: Carie Piedra MD Acct.#: [id number] : 1955 Age: 64 Sex: M Location: [facility] Exam Date: 01/26/20227 ADM Status: ADM IN Order Information: CHEST AP/PORT Accession Number: [id number] CPT: 41794 HISTORY: chest pain COMPARISONS: June 18, 2019 VIEWS: 1: frontal AP view of the chest at 2:33 AM FINDINGS: LINES AND TUBES: None. CARDIOMEDIASTINAL SILHOUETTE: The cardiac silhouette is mildly enlarged. The cardiomediastinal silhouette is otherwise normal for portable technique. PLEURA: The costophrenic angles are sharp. No pleural abnormalities are noted. LUNG PARENCHYMA: There is prominence of the central pulmonary vasculature. ABDOMEN: The upper abdomen is clear. There is no subphrenic gas. BONES AND SOFT TISSUES: The patient is status post median sternotomy. IMPRESSION: MILD CARDIOMEGALY WITH PULMONARY VASCULAR CONGESTION. R2 Preliminary Imaging Read R2 Patient Name: SCOTT FELIZ Medical Record#: [id number] Ordering Physician: Ashley Bunn DO Acct.#: [id number] : 1955 Age: 64 Sex: M Location: [facility] Exam Date: 01/26/20518 ADM Status: ADM IN Order Information: CT BRAIN WO Accession Number: [id number] CPT: 48598 PROCEDURE INFORMATION: Exam: CT Head Without Contrast Exam date and time: 01/26/2020 5:57 AM Age: 64 years old Clinical indication: Weakness, facial TECHNIQUE: Imaging protocol: Computed tomography of the head without contrast. Radiation optimization: All CT scans at this facility use at least one of these dose optimization techniques: automated exposure control; mA and/or kV adjustment per patient size (includes targeted exams where dose is matched to clinical indication); or iterative reconstruction. COMPARISON: BRAIN WO CT BRAIN WO 02/22/2016 12:04 PM FINDINGS: Brain: There is mild diffuse cerebral atrophy present, consistent with this patient's age. No hemorrhage. There is mild diffuse heterogeneity of the white matter attenuation, consistent with chronic white matter ischemic changes. No mass effect. There is a vascular stent noted within the left middle cerebral artery. Ventricles: Normal. No ventriculomegaly. Bones/joints: Unremarkable. No acute fracture. Sinuses: Visualized sinuses are unremarkable. No fluid levels. Mastoid air cells: Visualized mastoid air cells are well aerated. Soft tissues: Unremarkable. IMPRESSION: No acute intracranial abnormality. Dictated and Authenticated by: Dejan Benedict MD 01/26/2020 6:46 AM Eastern Time ([place] and [place]) To contact [facility] with a general question: [facility] - [phone] For direct physician to physician contact: Physician Hotline - [phone] [facility] ([facility] Facility ID #[id number]) Nutrition: HH diet Impression: This is a 64 year old male with complex history of CAD, CABG, HTN, diastolic HF , PFO with closure, ESRD on HD, DMII, GIB, HOWARD and anemia that presented to the ED with complaints of shoulder pain, right chest pain and dyspnea. Diagnoses: 1. ACS/NSTEMI 2. New onset aflutter 3. ESRD on HD Plan: Neuro - No active issues, dizziness at admission likely 2/2 arrhythmia and cardiac ischemia - CT head as above with no acute pathology CV - POC as per cardiology - Pending completion of lexiscan today - Trops trending down - Continue asa, plavix and heparin gtt, bridge to coumadin, expect to DC off asa at discharge but will defer to cardiology - May need device given sinus node dysfunction - Cardiology may consider BERRY cardioversion for aflutter at some point this week, will defer to their plan post lexiscan, currently rate controlled but high risk for further failure if he stays in [facility] - Maintain sats >92%, no active issues ID - No active issues GI - HH diet - Continue PPI given DAPT and history of GIB in the past - Daily weights Renal - strict I/O, replete to keep K>4, Mg>2 - Continue HD MWF - Continue chauhan as indicated Heme - Goal H&H >07/21, maintaining Endo - Maintain BG<200, insulin protocol if needed Musculsk/SKIN - pressure ulcer prophylaxis - Bedrest until clear by cardio/completion of lexiscan, then OOB to chair with assist DVT prophylaxis: heparin gtt GI prophylaxis: PPI Central Line: none Disposition: Patient requires Critical Care/ICU for evolving ACS/NSTEMI with potential intervention. Plan for downgrade to tele if no intervention planned after lexiscan. Patient clinical status: Fair/Progressing Code Status: Full code Total Critical Care time is 35 minutes
[2020-01-27] MEDS: Heparin VIAL(*) 5000 UNITS/ML VIAL (FIVE THOUSAND) IV PRN (19:10)
[2020-01-27] MEDS: Terazosin CAP* 5 MG PO SCH (20:16)
[2020-01-27] MEDS: Atorvastatin* 80 MG TAB PO SCH (20:16)
[2020-01-27] MEDS: Finasteride TAB* 5 MG PO SCH (20:16)
[2020-01-28 06:53] LABS: ABS Eosinophils 0.2 10^3/ul (0-0.6); ABS Lymphocytes 1.2 10^3/ul (1.0-4.8); ABS Monocytes 0.6 10^3/ul (0-0.8); ABS Neutrophils 3.2 10^3/ul (1.5-7.7); Eosinophil % 3.5 %; Hematocrit 23 % (42-52); Hemoglobin 7.9 g/dL (14.0-18.0); Lymphocyte % 22.5 %; Mean Corpuscular HGB Conc 35 g/dL (31-36); Mean Corpuscular Hemoglobin 32 pg (27-31); Mean Corpuscular Volume 91 fL (80-94); Mean Platelet Volume 8.7 fL (7.4-10.4); Platelet Count 150 10^3/uL (150-450); Red Blood Count 2.51 10^6 /uL (4.18-5.48); Red Cell Distribution Width 14 % (10-15); White Blood Count 5.1 10^3/uL (3.5-10.8)
[2020-01-28 07:08] LABS: Albumin 3.5 g/dL (3.2-5.2); Albumin/Globulin Ratio 1.7 (1-3); BUN/Creatinine Ratio 7.9 (8-20); EGFR African American 13.5 (>60); EGFR Non-African American 11.1 (>60); Globulin 2.1 g/dL (2-4); Total Protein 5.6 g/dL (6.4-8.9)
[2020-01-28] MEDS: Magnesium Oxide TAB* 400 MG PO SCH (08:52)
[2020-01-28] MEDS: Sertraline* 50 MG TAB PO SCH (08:53)
[2020-01-28] MEDS: Metoprolol Succinate XL TAB* 25 MG PO SCH (08:53)
[2020-01-28] MEDS: Pantoprazole TAB * 40 MG TAB PO SCH (08:53)
[2020-01-28] MEDS: Furosemide TAB* 40 MG PO SCH ×2 (08:53→21:01)
[2020-01-28] MEDS: Clopidogrel TAB* 75 MG PO SCH (08:53)
[2020-01-28] MEDS: Isosorbide Mononitrate ER TAB* 60 MG PO SCH ×2 (08:53→21:00)
[2020-01-28] MEDS: Lisinopril TAB* 5 MG PO SCH (08:53)
[2020-01-28] MEDS: busPIRone TAB* 10 MG PO SCH ×2 (08:53→21:01)
--- NOTE | 2020-01-28 09:22 | PN ---
Subjective Date of Service: 01/28/20 Interval History: f/u aflutter, NSTEMI patient has no right shoulder or arm pain (angina symptom) Breathing is ok at rest BP low overnight and hgb lower today tele rate controlled atrial flutter Medications Active Medications: Acetaminophen/Codeine Phosphate (Tylenol/Codeine 30 Mg Tab*) 1 tab PO Q8H PRN PRN Reason: PAIN - MODERATE Al Hydrox/Mg Hydrox/Simethicone (Maalox Plus*) 30 ml PO Q6H PRN PRN Reason: INDIGESTION Atorvastatin Calcium (Lipitor*) 80 mg PO BEDTIME [facility] Last Admin: 01/27/20 20:16 Dose: 80 mg Buspirone HCl (Buspar Tab*) 10 mg PO BID [facility] Last Admin: 01/28/20 08:53 Dose: 10 mg Clopidogrel Bisulfate (Plavix Tab*) 75 mg PO DAILY [facility] Last Admin: 01/28/20 08:53 Dose: 75 mg Finasteride (Proscar Tab*) 5 mg PO BEDTIME [facility] Last Admin: 01/27/20 20:16 Dose: 5 mg Furosemide (Lasix Tab*) 40 mg PO BID [facility] Last Admin: 01/28/20 08:53 Dose: 40 mg Heparin Sodium (Porcine) (Heparin Vial(*)) 0 units IV .BOLUS PRN PRN Reason: HEPARIN DRIP PROTOCOL Last Admin: 01/27/20 19:10 Dose: 2,000 units Heparin Sodium/Dextrose (Heparin Drip 25,000 Units(*)) 25,000 units in 500 mls @ 0 mls/hr IV PER RATE [facility]; Protocol Last Admin: 01/27/20 17:24 Dose: 32 mls/hr Isosorbide Mononitrate (Imdur Er Tab*) 120 mg PO BID [facility] Last Admin: 01/28/20 08:53 Dose: 120 mg Lisinopril (Prinivil Tab*) 5 mg PO QAM [facility] Last Admin: 01/28/20 08:53 Dose: 5 mg Magnesium Oxide (Magox 400 Tab*) 400 mg PO QAM [facility] Last Admin: 01/28/20 08:52 Dose: 400 mg Metoprolol Succinate (Toprol Xl Tab*) 25 mg PO DAILY [facility] Last Admin: 01/28/20 08:53 Dose: 25 mg Minoxidil (Loniten Tab*) 2.5 mg PO BID [facility] Last Admin: 01/27/20 22:51 Dose: 2.5 mg Nitroglycerin (Nitroglycerin Tab 0.4 Mg*) 0.4 mg SL Q5M PRN PRN Reason: ANGINA Pantoprazole Sodium (Protonix Tab*) 40 mg PO DAILY [facility] Last Admin: 01/28/20 08:53 Dose: 40 mg Sertraline HCl (Zoloft*) 50 mg PO QAM [facility] Last Admin: 01/28/20 08:53 Dose: 50 mg Terazosin HCl (Hytrin Cap*) 5 mg PO BEDTIME [facility] Last Admin: 01/27/20 20:16 Dose: 5 mg Objective Vital Signs: Temp Pulse Resp BP Pulse Ox 98.3 F 60 16 111/55 96 01/28/20 03:56 01/28/20 09:00 01/28/20 09:00 01/28/20 08:00 01/28/20 09:00 Oxygen Devices in Use Now: Nasal Cannula Appearance: chronically ill, nad Eyes: No Scleral Icterus, PERRLA Neck: Trachea Midline, No Thyroid Enlargement, Masses Respiratory: Symmetrical Chest Expansion and Respiratory Effort, Clear to Auscultation Cardiovascular: - - cabg scar noted, regular currently with 1/6 systolic murmur Abdominal: NL Sounds; No Tenderness; No Distention Extremities: No Edema - bounding PT pulses. Skin: No Rash or Ulcers Neurological: Alert and Oriented x 3, - Lines/Tubes/Other Access: Clean, Dry and Intact Peripheral IV, Clean, Dry and Intact Other Access - fistular RUE Laboratory Results: 01/28/20 06:44 01/28/20 06:44 INR (Anticoag Therapy) 0.97 (0.82-1.09) 01/26/20 02:29 APTT 87.2 seconds (26.0-38.0) H 01/28/20 07:34 Total Bilirubin 1.00 mg/dL (0.2-1.0) 01/28/20 06:44 AST 14 U/L (13-39) 01/28/20 06:44 ALT 20 U/L (7-52) 01/28/20 06:44 Alkaline Phosphatase 60 U/L (34-104) 01/28/20 06:44 CK-MB (CK-2) 3.6 ng/mL (0.6-6.3) 01/26/20 02:29 B-Natriuretic Peptide 947 pg/mL (<=100) H 01/26/20 02:29 Total Protein 5.6 g/dL (6.4-8.9) L 01/28/20 06:44 Albumin 3.5 g/dL (3.2-5.2) 01/28/20 06:44 Globulin 2.1 g/dL (2-4) 01/28/20 06:44 Albumin/Globulin Ratio 1.7 (1-3) 01/28/20 06:44 Triglycerides 170 mg/dL 01/26/20 02:29 Cholesterol 125 mg/dL 01/26/20 02:29 LDL Cholesterol 54 mg/dL 01/26/20 02:29 HDL Cholesterol 37.4 mg/dL 01/26/20 02: TSH 1.71 mcIU/mL (0.34-5.60) 01/26/20 09:40 01/26/20 01/26/20 01/26/20 02:29 05:30 08:35 Troponin I 0.76 H* 1.02 H* 2.01 H* 01/26/20 01/26/20 01/27/20 13:55 20:00 12:10 Troponin I 3.55 H* 3.33 H* 1.80 H* Diagnostic Imaging: Transthoracic Echocardiogram Study Date: 01/26/2020 Summary: - Left ventricle: The cavity size is at the upper limits of normal. Wall thickness is mildly to moderately increased. Systolic function is normal. The estimated ejection fraction is 55-60%. Wall motion is normal; there are no regional wall motion abnormalities. - Right ventricle: Systolic function is normal. - Left atrium: The atrium is severely dilated. - Atrial septum: A closure device is present. - Mitral valve: There is mild to moderate regurgitation. - Aortic valve: There is no evidence of stenosis. CXR Exam Date: 01/26/20 FINDINGS: LINES AND TUBES: None. CARDIOMEDIASTINAL SILHOUETTE: The cardiac silhouette is mildly enlarged. The cardiomediastinal silhouette is otherwise normal for portable technique. PLEURA: The costophrenic angles are sharp. No pleural abnormalities are noted. LUNG PARENCHYMA: There is prominence of the central pulmonary vasculature. ABDOMEN: The upper abdomen is clear. There is no subphrenic gas. BONES AND SOFT TISSUES: The patient is status post median sternotomy. IMPRESSION: MILD CARDIOMEGALY WITH PULMONARY VASCULAR CONGESTION. EKG Data: Telemetry: rate controlled atrial flutter overnight Assessment/Plan 1. NSTEMI - suspect type 1 given history that is known (can refer to outpatient medent notes or cardiac catheterization reports for details) - Asymptomatic currently - Stress MPI no symptoms reproduced with lexiscan, images reviewed and grossly unremarkable without any medium or severe intensity defects - Continue medical management. 2 Atrial flutter - Rate controlled, currently asymptomatic, LVEF normal - Known asymptomatic sinus node dysfunction - Rhythm control approach in this situation is known to substantially increase the risk of requiring atrial pacing pacemaker which we are trying to avoid given his infection risk with dialysis. 3. ESRD on HD 4. Anemia 5. HTN Plan for today: - Continue rate control. Currently on toprol 25 mg po daily in place of home tartrate 12.5 mg - Stop aspirin (ordered). Continue plavix. If bleeding is excluded would change heparin gtt to eliquis 2.5 mg po bid which was ok'd by his Test Cell Technician from an ESRD standpoint. After 06/2020 at 1 year since last PCI, will change plavix to aspirin. This strategy is based on the NORIS trial - Above discussed extensively with patient and Miryam who was on speaker phone - Hold hydralazine (ordered) given low BP. May need to restart at a lower dose. )
[2020-01-28] MEDS: MinoXIDil TAB* 2.5 MG TAB PO SCH ×2 (10:48→21:01)
[2020-01-28] MEDS ORDERED: Dextrose 50% Syringe 50 ML* 25 GM/50 ML SYRINGE IV PUSH PRN (17:26)
--- NOTE | 2020-01-28 17:28 | PN ---
Subjective Date of Service: 01/28/20 Interval History: Patient denies RT shoulder pain, chest pain. Denies SOB. States he could ambulate to BR, if he needed. Has chauhan cath (chronic.) Denies melena. Family History: Unchanged from Admission Social History: Unchanged from Admission Past Medical History: Unchanged from Admission Objective Active Medications: Acetaminophen/Codeine Phosphate (Tylenol/Codeine 30 Mg Tab*) 1 tab PO Q8H PRN PRN Reason: PAIN - MODERATE Al Hydrox/Mg Hydrox/Simethicone (Maalox Plus*) 30 ml PO Q6H PRN PRN Reason: INDIGESTION Atorvastatin Calcium (Lipitor*) 80 mg PO BEDTIME [facility] Last Admin: 01/27/20 20:16 Dose: 80 mg Buspirone HCl (Buspar Tab*) 10 mg PO BID [facility] Last Admin: 01/28/20 08:53 Dose: 10 mg Clopidogrel Bisulfate (Plavix Tab*) 75 mg PO DAILY [facility] Last Admin: 01/28/20 08:53 Dose: 75 mg Finasteride (Proscar Tab*) 5 mg PO BEDTIME [facility] Last Admin: 01/27/20 20:16 Dose: 5 mg Furosemide (Lasix Tab*) 40 mg PO BID [facility] Last Admin: 01/28/20 08:53 Dose: 40 mg Heparin Sodium (Porcine) (Heparin Vial(*)) 0 units IV .BOLUS PRN PRN Reason: HEPARIN DRIP PROTOCOL Last Admin: 01/27/20 19:10 Dose: 2,000 units Heparin Sodium/Dextrose (Heparin Drip 25,000 Units(*)) 25,000 units in 500 mls @ 0 mls/hr IV PER RATE [facility]; Protocol Last Admin: 01/27/20 17:24 Dose: 32 mls/hr Isosorbide Mononitrate (Imdur Er Tab*) 120 mg PO BID [facility] Last Admin: 01/28/20 08:53 Dose: 120 mg Lisinopril (Prinivil Tab*) 5 mg PO QAM [facility] Last Admin: 01/28/20 08:53 Dose: 5 mg Magnesium Oxide (Magox 400 Tab*) 400 mg PO QAM [facility] Last Admin: 01/28/20 08:52 Dose: 400 mg Metoprolol Succinate (Toprol Xl Tab*) 25 mg PO DAILY [facility] Last Admin: 01/28/20 08:53 Dose: 25 mg Minoxidil (Loniten Tab*) 2.5 mg PO BID [facility] Last Admin: 01/28/20 10:48 Dose: 2.5 mg Nitroglycerin (Nitroglycerin Tab 0.4 Mg*) 0.4 mg SL Q5M PRN PRN Reason: ANGINA Pantoprazole Sodium (Protonix Tab*) 40 mg PO DAILY [facility] Last Admin: 01/28/20 08:53 Dose: 40 mg Sertraline HCl (Zoloft*) 50 mg PO QAM [facility] Last Admin: 01/28/20 08:53 Dose: 50 mg Terazosin HCl (Hytrin Cap*) 5 mg PO BEDTIME [facility] Last Admin: 01/27/20 20:16 Dose: 5 mg Vital Signs - 8 hr 01/28/20 01/28/20 01/28/20 10:00 11:00 12:00 Temperature 36.9 C Pulse Rate 59 Respiratory 15 17 16 Rate Blood Pressure 109/55 (mmHg) O2 Sat by Pulse 93 Oximetry 01/28/20 01/28/20 01/28/20 13:00 14:12 16:00 Temperature 36.4 C 36.7 C Pulse Rate 60 96 Respiratory 20 18 16 Rate Blood Pressure 118/50 116/55 (mmHg) O2 Sat by Pulse 94 95 Oximetry Oxygen Devices in Use Now: None Appearance: alert, no distress Eyes: No Scleral Icterus Ears/Nose/Mouth/Throat: Clear Oropharnyx Neck: NL Appearance and Movements; NL JVP Respiratory: Symmetrical Chest Expansion and Respiratory Effort, Clear to Auscultation Cardiovascular: NL Sounds; No Murmurs; No JVD, RRR Abdominal: NL Sounds; No Tenderness; No Distention Neurological: Alert and Oriented x 3 Lines/Tubes/Other Access: Clean, Dry and Intact Peripheral IV Nutrition: Taking PO's Result Diagrams: 01/28/20 06:44 01/28/20 06:44 Additional Lab and Data: Laboratory Tests 01/27/20 01/28/20 01/28/20 12:10 00:47 06:44 APTT 80.9 H Glucose 232 H Troponin I 1.80 H* 01/28/20 01/28/20 07:34 15:39 APTT 87.2 H 57.2 H Glucose Troponin I Microbiology and Other Data: Microbiology 01/26/20 05:05 Nasal Screen MRSA (PCR) - Final Nasal Mrsa Not Detected EKG Data: telemetry; a-flutter, V-rate 60 Assess/Plan/Problems-Billing Assessment: 64 yo man w/ ESRD, CAD, here with nonSTEMI, new atrial flutter - Patient Problems (1) Atrial flutter with controlled response Current Visit: Yes Status: Acute Priority: High Code(s): I48.92 - UNSPECIFIED ATRIAL FLUTTER SNOMED Code(s): 6627909 Comment: -Rate control is adequate, not pursuing rhythm correction -Discussed w/ Dr. Beltre -Will switch to Eliquis 2.5 BID once bleeding ruled out. (2) Anemia Current Visit: Yes Status: Acute Priority: Medium Code(s): D64.9 - ANEMIA , UNSPECIFIED SNOMED Code(s): 801849190 Comment: - Appears due to ESRD, will check FOBT to r/o GI hemorrhage - nephrology to manage IV venofer, epogen (3) NSTEMI (non-ST elevated myocardial infarction) Current Visit: Yes Status: Acute Priority: High Code(s): I21.4 - NON-ST ELEVATION (NSTEMI) MYOCARDIAL INFARCTION SNOMED Code(s): 40314266 Comment: - Stress test negative for active ischemia, appears to be type 2 LA - Will be on plavix for now, switch to ASA 1 year after stent placed (4) ESRD (end stage renal disease) Current Visit: No Status: Acute Code(s): N18.6 - END STAGE RENAL DISEASE SNOMED Code(s): 35120718 Comment: -on HD- [facility] -needs HD tomorrow (5) DVT prophylaxis Current Visit: No Status: Acute Priority: Low Onset Date: 02/01/15 Code( s): KQS1976 - SNOMED Code(s): 504653598 Comment: - on IV heparin Status and Disposition: inpatient
--- NOTE | 2020-01-28 17:41 | PN ---
Progress Note - Progress Note Date of Service: 01/28/20 Note: Chief complaint: End-stage kidney disease on hemodialysis Saturday History of present illness: Patient is doing well. Stress test did not show any new worrisome findings. It is believed that his symptoms were secondary to a flutter with rapid ventricular response. Rate is well controlled now. He is not short of breath. He feels a lot improved. Denies chest pain or palpitations. Appetite is good. blood pressure is well controlled. There are no acid base or electrolyte abnormalities today. Review of systems Constitutional: No fevers, chills, night sweats, loss of appetite Cardiovascular: No chest pain, shortness of breath, palpitations, or leg swelling : Still makes urine about 3-4 times a day. No dysuria or gross hematuria. Laboratory Last Values WBC 5.1 10^3/uL (3.5-10.8) 01/28/20 06:44 RBC 2.51 10^6 /uL (4.18-5.48) L 01/28/20 06:44 Hgb 7.9 g/dL (14.0-18.0) L 01/28/20 06:44 Hct 23 % (42-52) L 01/28/20 06:44 MCV 91 fL (80-94) 01/28/20 06:44 MCH 32 pg (27-31) H 01/28/20 06:44 MCHC 35 g/dL (31-36) 01/28/20 06:44 RDW 14 % (10-15) 01/28/20 06:44 Plt Count 150 10^3/uL (150-450) 01/28/20 06:44 MPV 8.7 fL (7.4-10.4) 01/28/20 06:44 Neut % (Auto) 62.4 % 01/28/20 06:44 Lymph % (Auto) 22.5 % 01/28/20 06:44 Howell % (Auto) 11.1 % 01/28/20 06:44 Eos % (Auto) 3.5 % 01/28/20 06:44 Baso % (Auto) 0.5 % 01/28/20 06:44 Absolute Neuts (auto) 3.2 10^3/ul (1.5-7.7) 01/28/20 06:44 Absolute Lymphs (auto) 1.2 10^3/ul (1.0-4.8) 01/28/20 06:44 Absolute Monos (auto) 0.6 10^3/ul (0-0.8) 01/28/20 06:44 Absolute Eos (auto) 0.2 10^3/ul (0-0.6) 01/28/20 06:44 Absolute Basos (auto) 0.0 10^3/ul (0-0.2) 01/28/20 06:44 Absolute Nucleated RBC 0.0 10^3/ul 01/28/20 06:44 Nucleated RBC % 0.0 01/28/20 06:44 INR (Anticoag Therapy) 0.97 (0.82-1.09) 01/26/20 02:29 APTT 57.2 seconds (26.0-38.0) H 01/28/20 15:39 Sodium 130 mmol/L (135-145) L 01/28/20 06:44 Potassium 4.0 mmol/L (3.5-5.0) 01/28/20 06:44 Chloride 94 mmol/L (101-111) L 01/28/20 06:44 Carbon Dioxide 27 mmol/L (22-32) 01/28/20 06:44 Anion Gap 9 mmol/L (2-11) 01/28/20 06:44 BUN 41 mg/dL (6-24) H 01/28/20 06:44 Creatinine 5.21 mg/dL (0.67-1.17) H 01/28/20 06:44 Est GFR ( Amer) 13.5 (>60) 01/28/20 06:44 Est GFR (Non-Af Amer) 11.1 (>60) 01/28/20 06:44 BUN/Creatinine Ratio 7.9 (8-20) L 01/28/20 06:44 Glucose 232 mg/dL (70-100) H 01/28/20 06:44 Calcium 8.0 mg/dL (8.6-10.3) L 01/28/20 06:44 Total Bilirubin 1.00 mg/dL (0.2-1.0) 01/28/20 06:44 AST 14 U/L (13-39) 01/28/20 06:44 ALT 20 U/L (7-52) 01/28/20 06:44 Alkaline Phosphatase 60 U/L (34-104) 01/28/20 06:44 Total Creatine Kinase 165 U/L (10-223) 01/26/20 02:29 CK-MB (CK-2) 3.6 ng/mL (0.6-6.3) 01/26/20 02:29 Myoglobin 236.5 ng/mL (17.4-105.7) H 01/26/20 02:29 Troponin I 1.80 ng/mL (<0.03) H* 01/27/20 12:10 B-Natriuretic Peptide 947 pg/mL (<=100) H 01/26/20 02:29 Total Protein 5.6 g/dL (6.4-8.9) L 01/28/20 06:44 Albumin 3.5 g/dL (3.2-5.2) 01/28/20 06:44 Globulin 2.1 g/dL (2-4) 01/28/20 06:44 Albumin/Globulin Ratio 1.7 (1-3) 01/28/20 06:44 Triglycerides 170 mg/dL 01/26/20 02:29 Cholesterol 125 mg/dL 01/26/20 02:29 LDL Cholesterol 54 mg/dL 01/26/20 02:29 HDL Cholesterol 37.4 mg/dL 01/26/20 02:29 TSH 1.71 mcIU/mL (0.34-5.60) 01/26/20 09:40 Free T4 0.87 ng/dL (0.61-1.12) 01/26/20 09:40 Free T3 2.60 pg/mL (2.5-3.9) 01/26/20 09:40 Influenza A (Rapid) Negative (Negative) 01/26/20 05:05 Influenza B (Rapid) Negative (Negative) 01/26/20 05:05 active meds Acetaminophen/Codeine Phosphate (Tylenol/Codeine 30 Mg Tab*) 1 tab PO Q8H PRN PRN Reason: PAIN - MODERATE Al Hydrox/Mg Hydrox/Simethicone (Maalox Plus*) 30 ml PO Q6H PRN PRN Reason: INDIGESTION Atorvastatin Calcium (Lipitor*) 80 mg PO BEDTIME [facility] Last Admin: 01/27/20 20:16 Dose: 80 mg Buspirone HCl (Buspar Tab*) 10 mg PO BID [facility] Last Admin: 01/28/20 08:53 Dose: 10 mg Clopidogrel Bisulfate (Plavix Tab*) 75 mg PO DAILY [facility] Last Admin: 01/28/20 08:53 Dose: 75 mg Dextrose (D50w Syringe 50 Ml*) 12.5 gm IV PUSH .FOR FS < 60 - SS PRN PRN Reason: FS < 60 Finasteride (Proscar Tab*) 5 mg PO BEDTIME [facility] Last Admin: 01/27/20 20:16 Dose: 5 mg Furosemide (Lasix Tab*) 40 mg PO BID [facility] Last Admin: 01/28/20 08:53 Dose: 40 mg Heparin Sodium (Porcine) (Heparin Vial(*)) 0 units IV .BOLUS PRN PRN Reason: HEPARIN DRIP PROTOCOL Last Admin: 01/27/20 19:10 Dose: 2,000 units Heparin Sodium/Dextrose (Heparin Drip 25,000 Units(*)) 25,000 units in 500 mls @ 0 mls/hr IV PER RATE [facility]; Protocol Last Admin: 01/27/20 17:24 Dose: 32 mls/hr Insulin Human Lispro (Humalog*) 0 units SUBCUT ACHS [facility]; Protocol Isosorbide Mononitrate (Imdur Er Tab*) 120 mg PO BID [facility] Last Admin: 01/28/20 08:53 Dose: 120 mg Lisinopril (Prinivil Tab*) 5 mg PO QAM [facility] Last Admin: 01/28/20 08:53 Dose: 5 mg Magnesium Oxide (Magox 400 Tab*) 400 mg PO QAM [facility] Last Admin: 01/28/20 08:52 Dose: 400 mg Metoprolol Succinate (Toprol Xl Tab*) 25 mg PO DAILY [facility] Last Admin: 01/28/20 08:53 Dose: 25 mg Minoxidil (Loniten Tab*) 2.5 mg PO BID [facility] Last Admin: 01/28/20 10:48 Dose: 2.5 mg Nitroglycerin (Nitroglycerin Tab 0.4 Mg*) 0.4 mg SL Q5M PRN PRN Reason: ANGINA Pantoprazole Sodium (Protonix Tab*) 40 mg PO DAILY [facility] Last Admin: 01/28/20 08:53 Dose: 40 mg Sertraline HCl (Zoloft*) 50 mg PO QAM [facility] Last Admin: 01/28/20 08:53 Dose: 50 mg Terazosin HCl (Hytrin Cap*) 5 mg PO BEDTIME [facility] Last Admin: 01/27/20 20:16 Dose: 5 mg Physical exam: Temp Pulse Resp BP SpO2 FiO2 98.1 F 96 16 116/55 95 01/28/20 16:00 01/28/20 16:00 01/28/20 16:00 01/28/20 16:00 01/28/20 16:00 No acute distress, lying almost flat in bed without shortness of breath chest is clear to auscultation bilaterally Heart exam shows S1, S2, regular rate and rhythm, no murmurs rubs or gallops. No significant lower extremities edema. Psychiatric: Alert nsight appropriate, mood normal. Assessment and plan: 1. End-stage kidney disease on hemodialysis Saturday. No need for additional hemodialysis treatment today. He will get tomorrow. 2. Anemia while on heparin. He also has a component of anemia of chronic kidney disease. Will receive erythropoietin with dialysis tomorrow. 3. A flutter. I recommend the agulation with Eliquis 2.5 mg by mouth twice a day. He is already on. Grell and aspirin. 4. Coronary artery disease seems His earlier event was due to increased demand secondary to rapid a flutter. 5. 5. Hypertension well controlled, no changes.
[2020-01-28] MEDS: Insulin LISPRO* 1 UNITS UNIT SUBCUT SCH (20:38)
[2020-01-28] MEDS: Finasteride TAB* 5 MG PO SCH (21:01)
[2020-01-28] MEDS: Terazosin CAP* 5 MG PO SCH (21:01)
[2020-01-28] MEDS: Atorvastatin* 80 MG TAB PO SCH (21:01)
[2020-01-28] MEDS: Heparin DRIP 25,000 UNITS(*) 25,000 UNITS/500 ML BAG IV SCH (23:04)
[2020-01-29 06:15] LABS: ABS Eosinophils 0.2 10^3/ul (0-0.6); ABS Lymphocytes 1.1 10^3/ul (1.0-4.8); ABS Monocytes 0.6 10^3/ul (0-0.8); ABS Neutrophils 3.4 10^3/ul (1.5-7.7); Eosinophil % 4.2 %; Hematocrit 25 % (42-52); Hemoglobin 8.6 g/dL (14.0-18.0); Mean Corpuscular HGB Conc 35 g/dL (31-36); Mean Corpuscular Hemoglobin 32 pg (27-31); Mean Corpuscular Volume 91 fL (80-94); Mean Platelet Volume 8.4 fL (7.4-10.4); Platelet Count 133 10^3/uL (150-450); Red Blood Count 2.69 10^6 /uL (4.18-5.48); Red Cell Distribution Width 15 % (10-15); White Blood Count 5.3 10^3/uL (3.5-10.8)
[2020-01-29 06:37] LABS: BUN/Creatinine Ratio 8.7 (8-20); EGFR Non-African American 9.1 (>60); Potassium 4.1 mmol/L (3.5-5.0)
[2020-01-29 06:38] LABS: Albumin 3.5 g/dL (3.2-5.2); Albumin/Globulin Ratio 1.7 (1-3); Calcium 8.2 mg/dL (8.6-10.3); Globulin 2.1 g/dL (2-4); Total Bilirubin 0.7 mg/dL (0.2-1.0); Total Protein 5.6 g/dL (6.4-8.9)
[2020-01-29] MEDS: Insulin LISPRO* 1 UNITS UNIT SUBCUT SCH ×4 (07:46→21:47)
--- NOTE | 2020-01-29 08:45 | PN ---
Subjective Date of Service: 01/29/20 Interval History: f/u aflutter, NSTEMI patient has no right shoulder or arm pain (angina symptom) feels well no dyspnea wants to go home tele rate controlled atrial flutter Medications Active Medications: Acetaminophen/Codeine Phosphate (Tylenol/Codeine 30 Mg Tab*) 1 tab PO Q8H PRN PRN Reason: PAIN - MODERATE Al Hydrox/Mg Hydrox/Simethicone (Maalox Plus*) 30 ml PO Q6H PRN PRN Reason: INDIGESTION Atorvastatin Calcium (Lipitor*) 80 mg PO BEDTIME [facility] Last Admin: 01/28/20 21:01 Dose: 80 mg Buspirone HCl (Buspar Tab*) 10 mg PO BID [facility] Last Admin: 01/28/20 21:01 Dose: 10 mg Clopidogrel Bisulfate (Plavix Tab*) 75 mg PO DAILY [facility] Last Admin: 01/28/20 08:53 Dose: 75 mg Dextrose (D50w Syringe 50 Ml*) 12.5 gm IV PUSH .FOR FS < 60 - SS PRN PRN Reason: FS < 60 Finasteride (Proscar Tab*) 5 mg PO BEDTIME [facility] Last Admin: 01/28/20 21:01 Dose: 5 mg Furosemide (Lasix Tab*) 40 mg PO BID [facility] Last Admin: 01/28/20 21:01 Dose: 40 mg Heparin Sodium (Porcine) (Heparin Vial(*)) 0 units IV .BOLUS PRN PRN Reason: HEPARIN DRIP PROTOCOL Last Admin: 01/27/20 19:10 Dose: 2,000 units Insulin Human Lispro (Humalog*) 0 units SUBCUT [facility]; Protocol Last Admin: 01/29/20 07:46 Dose: Not Given Isosorbide Mononitrate (Imdur Er Tab*) 120 mg PO BID [facility] Last Admin: 01/28/20 21:00 Dose: 120 mg Lisinopril (Prinivil Tab*) 5 mg PO QAM [facility] Last Admin: 01/28/20 08:53 Dose: 5 mg Magnesium Oxide (Magox 400 Tab*) 400 mg PO QAM [facility] Last Admin: 01/28/20 08:52 Dose: 400 mg Metoprolol Succinate (Toprol Xl Tab*) 25 mg PO DAILY [facility] Last Admin: 01/28/20 08:53 Dose: 25 mg Minoxidil (Loniten Tab*) 2.5 mg PO BID [facility] Last Admin: 01/28/20 21:01 Dose: 2.5 mg Nitroglycerin (Nitroglycerin Tab 0.4 Mg*) 0.4 mg SL Q5M PRN PRN Reason: ANGINA Pantoprazole Sodium (Protonix Tab*) 40 mg PO DAILY [facility] Last Admin: 01/28/20 08:53 Dose: 40 mg Sertraline HCl (Zoloft*) 50 mg PO QAM [facility] Last Admin: 01/28/20 08:53 Dose: 50 mg Terazosin HCl (Hytrin Cap*) 5 mg PO BEDTIME [facility] Last Admin: 01/28/20 21:01 Dose: 5 mg Objective Vital Signs: Temp Pulse Resp BP Pulse Ox 98.2 F 59 18 129/53 97 01/29/20 07:35 01/29/20 07:35 01/29/20 07:35 01/29/20 07:35 01/29/20 07:35 Oxygen Devices in Use Now: None Appearance: chronically ill, nad Eyes: No Scleral Icterus, PERRLA Ears/Nose/Mouth/Throat: Mucous Membranes Moist Neck: Trachea Midline, No Thyroid Enlargement, Masses Respiratory: Symmetrical Chest Expansion and Respiratory Effort, Clear to Auscultation Cardiovascular: - - cabg scar noted, regular currently with 1/6 systolic murmur Abdominal: NL Sounds; No Tenderness; No Distention Extremities: No Edema - bounding PT pulses. Skin: No Rash or Ulcers Neurological: Alert and Oriented x 3, - Lines/Tubes/Other Access: Clean, Dry and Intact Peripheral IV, Clean, Dry and Intact Other Access - fistular RUE Laboratory Results: 01/29/20 06:01 01/29/20 06:01 INR (Anticoag Therapy) 0.97 (0.82-1.09) 01/26/20 02:29 APTT 72.0 seconds (26.0-38.0) H 01/29/20 06:01 Total Bilirubin 0.70 mg/dL (0.2-1.0) 01/29/20 06:01 AST 22 U/L (13-39) 01/29/20 06:01 ALT 27 U/L (7-52) 01/29/20 06:01 Alkaline Phosphatase 78 U/L (34-104) 01/29/20 06:01 CK-MB (CK-2) 3.6 ng/mL (0.6-6.3) 01/26/20 02:29 B-Natriuretic Peptide 947 pg/mL (<=100) H 01/26/20 02:29 Total Protein 5.6 g/dL (6.4-8.9) L 01/29/20 06:01 Albumin 3.5 g/dL (3.2-5.2) 01/29/20 06:01 Globulin 2.1 g/dL (2-4) 01/29/20 06:01 Albumin/Globulin Ratio 1.7 (1-3) 01/29/20 06:01 Triglycerides 170 mg/dL 01/26/20 02:29 Cholesterol 125 mg/dL 01/26/20 02:29 LDL Cholesterol 54 mg/dL 01/26/20 02:29 HDL Cholesterol 37.4 mg/dL 01/26/20 02:29 TSH 1.71 mcIU/mL (0.34-5.60) 01/26/20 09:40 01/26/20 01/26/20 01/26/20 02:29 05:30 08:35 Troponin I 0.76 H* 1.02 H* 2.01 H* 01/26/20 01/26/20 01/27/20 13:55 20:00 12:10 Troponin I 3.55 H* 3.33 H* 1.80 H* Diagnostic Imaging: Transthoracic Echocardiogram Study Date: 01/26/2020 Summary: - Left ventricle: The cavity size is at the upper limits of normal. Wall thickness is mildly to moderately increased. Systolic function is normal. The estimated ejection fraction is 55-60%. Wall motion is normal; there are no regional wall motion abnormalities. - Right ventricle: Systolic function is normal. - Left atrium: The atrium is severely dilated. - Atrial septum: A closure device is present. - Mitral valve: There is mild to moderate regurgitation. - Aortic valve: There is no evidence of stenosis. CXR Exam Date: 01/26/20 FINDINGS: LINES AND TUBES: None. CARDIOMEDIASTINAL SILHOUETTE: The cardiac silhouette is mildly enlarged. The cardiomediastinal silhouette is otherwise normal for portable technique. PLEURA: The costophrenic angles are sharp. No pleural abnormalities are noted. LUNG PARENCHYMA: There is prominence of the central pulmonary vasculature. ABDOMEN: The upper abdomen is clear. There is no subphrenic gas. BONES AND SOFT TISSUES: The patient is status post median sternotomy. IMPRESSION: MILD CARDIOMEGALY WITH PULMONARY VASCULAR CONGESTION. EKG Data: Telemetry: rate controlled atrial flutter overnight Assessment/Plan 1. NSTEMI - suspect type 1 given history that is known (can refer to outpatient medent notes or cardiac catheterization reports for details) - Asymptomatic currently - Stress MPI no symptoms reproduced with lexiscan, images reviewed and grossly unremarkable without any medium or severe intensity defects - Continue medical management. 2 Atrial flutter - Rate controlled, currently asymptomatic, LVEF normal - Known asymptomatic sinus node dysfunction - Rhythm control approach in this situation is known to substantially increase the risk of requiring atrial pacing pacemaker which we are trying to avoid given his infection risk with dialysis. 3. ESRD on HD 4. Anemia 5. HTN 6. 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 - Change heparin gtt to eliquis 2.5 mg po bid (ordered). After 06/2020 at 1 year since last PCI, will change plavix to aspirin. This strategy is based on the NORIS trial - Continue to hold home hydralazine - Can be discharged later today from a cardiac standpoint - Discussed with patient and Miryam (on speaker phone)
[2020-01-29] MEDS ORDERED: Apixaban* 2.5 MG TAB PO SCH (09:00)
--- NOTE | 2020-01-29 09:41 | PN ---
Progress Note - Progress Note Date of Service: 01/29/20 Note: Mr. Watson is a very nice 64-year-old gentleman who we are following in the hospital for the chief complaint of end-stage kidney disease, on maintenance hemodialysis Saturday and Saturday. Interval history: He was admitted for rapid a flutter and and NSTEMI. Cardiac nuclear scan did not show any new areas of reversible ischemia. His a flutter was uncontrolled to begin with but now is rate controlled and he feels a lot better. I saw the patient during maintenance hemodialysis today. His treatment was going well without any complications. I discussed his dialysis prescription with his nurse. Review of systems: No fevers, chills, loss of appetite No chest pain, no palpitations No cough or sputum production. Medications: Acetaminophen/Codeine Phosphate (Tylenol/Codeine 30 Mg Tab*) 1 tab PO Q8H PRN PRN Reason: PAIN - MODERATE Al Hydrox/Mg Hydrox/Simethicone (Maalox Plus*) 30 ml PO Q6H PRN PRN Reason: INDIGESTION Apixaban (Eliquis*) 2.5 mg PO BID [facility] Atorvastatin Calcium (Lipitor*) 80 mg PO BEDTIME [facility] Last Admin: 01/28/20 21:01 Dose: 80 mg Buspirone HCl (Buspar Tab*) 10 mg PO BID [facility] Last Admin: 01/28/20 21:01 Dose: 10 mg Clopidogrel Bisulfate (Plavix Tab*) 75 mg PO DAILY [facility] Last Admin: 01/28/20 08:53 Dose: 75 mg Dextrose (D50w Syringe 50 Ml*) 12.5 gm IV PUSH .FOR FS < 60 - SS PRN PRN Reason: FS < 60 Finasteride (Proscar Tab*) 5 mg PO BEDTIME [facility] Last Admin: 01/28/20 21:01 Dose: 5 mg Furosemide (Lasix Tab*) 40 mg PO BID [facility] Last Admin: 01/28/20 21:01 Dose: 40 mg Insulin Human Lispro (Humalog*) 0 units SUBCUT ACHS [facility]; Protocol Last Admin: 01/29/20 07:46 Dose: Not Given Isosorbide Mononitrate (Imdur Er Tab*) 120 mg PO BID [facility] Last Admin: 01/28/20 21:00 Dose: 120 mg Lisinopril (Prinivil Tab*) 5 mg PO QAM [facility] Last Admin: 01/28/20 08:53 Dose: 5 mg Magnesium Oxide (Magox 400 Tab*) 400 mg PO QAM [facility] Last Admin: 01/28/20 08:52 Dose: 400 mg Metoprolol Succinate (Toprol Xl Tab*) 25 mg PO DAILY [facility] Last Admin: 01/28/20 08:53 Dose: 25 mg Minoxidil (Loniten Tab*) 2.5 mg PO BID [facility] Last Admin: 01/28/20 21:01 Dose: 2.5 mg Nitroglycerin (Nitroglycerin Tab 0.4 Mg*) 0.4 mg SL Q5M PRN PRN Reason: ANGINA Pantoprazole Sodium (Protonix Tab*) 40 mg PO DAILY [facility] Last Admin: 01/28/20 08:53 Dose: 40 mg Sertraline HCl (Zoloft*) 50 mg PO QAM [facility] Last Admin: 01/28/20 08:53 Dose: 50 mg Terazosin HCl (Hytrin Cap*) 5 mg PO BEDTIME [facility] Last Admin: 01/28/20 21:01 Dose: 5 mg Labs: Abnormal Lab Results 01/29/20 01/29/20 01/29/20 06:01 06:01 06:01 WBC 5.3 RBC 2.69 L Hgb 8.6 L Hct 25 L MCV 91 MCH 32 H MCHC 35 RDW 15 Plt Count 133 L MPV 8.4 Neut % (Auto) 63.9 Lymph % (Auto) 21.0 Rains % (Auto) 10.5 Eos % (Auto) 4.2 Baso % (Auto) 0.4 Absolute Neuts (auto) 3.4 Absolute Lymphs (auto) 1.1 Absolute Monos (auto) 0.6 Absolute Eos (auto) 0.2 Absolute Basos (auto) 0.0 Absolute Nucleated RBC 0.0 Nucleated RBC % 0.0 APTT Sodium 129 L Potassium 4.1 Chloride 96 L Carbon Dioxide 24 Anion Gap 9 BUN 54 H Creatinine 6.21 H Est GFR ( Amer) 11.0 Est GFR (Non-Af Amer) 9.1 BUN/Creatinine Ratio 8.7 Glucose 118 H POC Glucose (mg/dL) Hemoglobin A1c 6.0 H Calcium 8.2 L Total Bilirubin 0.70 AST 22 ALT 27 Alkaline Phosphatase 78 Total Protein 5.6 L Albumin 3.5 Globulin 2.1 Albumin/Globulin Ratio 1.7 Physical exam: Temp Pulse Resp BP SpO2 FiO2 98.2 F 59 18 129/53 97 01/29/20 07:35 01/29/20 07:35 01/29/20 07:35 01/29/20 07:35 01/29/20 07:35 No acute distress Chest is Clear to auscultation with good respiratory effort. Heart exam shows S1, S2, regular rate and rhythm, no murmurs rubs or gallops appreciated. Trace lower extremities edema. Abdomen: Soft Psychiatric: Alert and oriented 3. Assessment and plan: 1. End-stage kidney disease on hemodialysis Saturday. Hemodialysis today. I saw the patient during maintenance hemodialysis and he was tolerating treatment well. 2. Anemia of chronic kidney disease. I ordered erythropoietin 10,000 units with dialysis today. 3. Anticoagulation for a flutter. Eliquis 2.5 mg by mouth twice a day: this is a decreased dose because of hemodialysis status. 4. A flutter is rate controlled now. 5. NSTEMI due to a flutter with rapid ventricular rate. Goal is to maintain control of the ventricular rate. 6. Hypertension well controlled, no changes. 7. Hyponatremia, mild , will be corrected with hemodialysis. 8. Hypocalcemia will be corrected with hemodialysis as well.
[2020-01-29] MEDS ORDERED: EPOETIN ALFA-EPBX * 10,000 UNIT/ML VIAL IV ONE (10:00)
[2020-01-29] MEDS: Pantoprazole TAB * 40 MG TAB PO SCH (12:55)
[2020-01-29] MEDS: Metoprolol Succinate XL TAB* 25 MG PO SCH (12:55)
[2020-01-29] MEDS: Magnesium Oxide TAB* 400 MG PO SCH (12:55)
[2020-01-29] MEDS: Clopidogrel TAB* 75 MG PO SCH (12:56)
[2020-01-29] MEDS: Furosemide TAB* 40 MG PO SCH ×2 (12:56→21:46)
[2020-01-29] MEDS: Isosorbide Mononitrate ER TAB* 60 MG PO SCH (12:56)
[2020-01-29] MEDS: Lisinopril TAB* 5 MG PO SCH (12:56)
[2020-01-29] MEDS: MinoXIDil TAB* 2.5 MG TAB PO SCH ×2 (12:56→21:46)
[2020-01-29] MEDS: busPIRone TAB* 10 MG PO SCH ×2 (12:56→21:46)
[2020-01-29] MEDS: Sertraline* 50 MG TAB PO SCH (12:56)
[2020-01-29] MEDS: Nitroglycerin TAB 0.4 MG* 0.4 MG TAB SL PRN ×2 (13:44→13:51)
--- NOTE | 2020-01-29 14:01 | PN ---
Cardiology Progress Note Date of Service: 01/29/20 01/29/2020 Patient had HD today Developed severe angina with anterolateral ischemic ST/T changes after going to bathroom Now pain free after SL NTG x 2 Given recurrent relatively spontaneous angina post-NSTEMI appropriately medically treated, cardiac catheterization with intent for revascularization indicated and recommended. Risks, benefits, alternatives discussed and patient wishes to proceed. Discussed with Miryam Discussed case with Dr. Patel
--- NOTE | 2020-01-29 14:37 | PN ---
Subjective Date of Service: 01/29/20 Interval History: Patient seen earlier in day, while in dialysis. No chest pain, doing well. Plan was for discharge. Later afternoon, had chest pain w/ exertion, radiating to RT arm. Dr. Beltre evaluated, discharge canceled. Family History: Unchanged from Admission Social History: Unchanged from Admission Past Medical History: Unchanged from Admission Objective Active Medications: Acetaminophen/Codeine Phosphate (Tylenol/Codeine 30 Mg Tab*) 1 tab PO Q8H PRN PRN Reason: PAIN - MODERATE Al Hydrox/Mg Hydrox/Simethicone (Maalox Plus*) 30 ml PO Q6H PRN PRN Reason: INDIGESTION Atorvastatin Calcium (Lipitor*) 80 mg PO BEDTIME [facility] Last Admin: 01/28/20 21:01 Dose: 80 mg Buspirone HCl (Buspar Tab*) 10 mg PO BID [facility] Last Admin: 01/29/20 12:56 Dose: 10 mg Clopidogrel Bisulfate (Plavix Tab*) 75 mg PO DAILY [facility] Last Admin: 01/29/20 12:56 Dose: 75 mg Dextrose (D50w Syringe 50 Ml*) 12.5 gm IV PUSH .FOR FS < 60 - SS PRN PRN Reason: FS < 60 Finasteride (Proscar Tab*) 5 mg PO BEDTIME [facility] Last Admin: 01/28/20 21:01 Dose: 5 mg Furosemide (Lasix Tab*) 40 mg PO BID [facility] Last Admin: 01/29/20 12:56 Dose: 40 mg Insulin Human Lispro (Humalog*) [address] [facility]; Protocol Last Admin: 01/29/20 11:53 Dose: Not Given Isosorbide Mononitrate (Imdur Er Tab*) 120 mg PO BID [facility] Last Admin: 01/29/20 12:56 Dose: 120 mg Lisinopril (Prinivil Tab*) 5 mg PO QAM [facility] Last Admin: 01/29/20 12:56 Dose: 5 mg Magnesium Oxide (Magox 400 Tab*) 400 mg PO QAM [facility] Last Admin: 01/29/20 12:55 Dose: 400 mg Metoprolol Succinate (Toprol Xl Tab*) 25 mg PO DAILY [facility] Last Admin: 01/29/20 12:55 Dose: 25 mg Minoxidil (Loniten Tab*) 2.5 mg PO BID [facility] Last Admin: 01/29/20 12:56 Dose: 2.5 mg Nitroglycerin (Nitroglycerin Tab 0.4 Mg*) 0.4 mg SL Q5M PRN PRN Reason: ANGINA Last Admin: 01/29/20 13:51 Dose: 0.4 mg Pantoprazole Sodium (Protonix Tab*) 40 mg PO DAILY [facility] Last Admin: 01/29/20 12:55 Dose: 40 mg Sertraline HCl (Zoloft*) 50 mg PO QAM [facility] Last Admin: 01/29/20 12:56 Dose: 50 mg Terazosin HCl (Hytrin Cap*) 5 mg PO BEDTIME [facility] Last Admin: 01/28/20 21:01 Dose: 5 mg Vital Signs - 8 hr 01/29/20 01/29/20 01/29/20 07:35 08:00 12:59 Temperature 36.8 C 36.6 C Pulse Rate 59 53 Respiratory 18 16 17 Rate Blood Pressure 129/53 157/55 (mmHg) O2 Sat by Pulse 97 95 Oximetry 01/29/20 01/29/20 01/29/20 13:34 13:47 13:51 Temperature 36.6 C Pulse Rate 119 60 60 Respiratory 21 Rate Blood Pressure 156/102 145/56 153/57 (mmHg) O2 Sat by Pulse 98 100 98 Oximetry 01/29/20 14:01 Temperature Pulse Rate 62 Respiratory Rate Blood Pressure 142/61 (mmHg) O2 Sat by Pulse Oximetry Oxygen Devices in Use Now: None Appearance: alert, no distress Ears/Nose/Mouth/Throat: NL Teeth, Lips, Gums Neck: NL Appearance and Movements; NL JVP Respiratory: Symmetrical Chest Expansion and Respiratory Effort, Clear to Auscultation Cardiovascular: NL Sounds; No Murmurs; No JVD, RRR Abdominal: NL Sounds; No Tenderness; No Distention Neurological: Alert and Oriented x 3 Lines/Tubes/Other Access: Clean, Dry and Intact Peripheral IV Nutrition: Taking PO's Result Diagrams: 01/29/20 06:01 01/29/20 06:01 Additional Lab and Data: Laboratory Tests 01/29/20 01/29/20 01/29/20 06:01 06:01 07:31 APTT 72.0 H POC Glucose (mg/dL) 139 H Hemoglobin A1c 6.0 H 01/29/20 11:43 APTT POC Glucose (mg/dL) 110 H Hemoglobin A1c Microbiology and Other Data: FOBT not collected Assess/Plan/Problems-Billing Assessment: 64 yo man w/ ESRD, CAD, here with nonSTEMI, new atrial flutter - Patient Problems (1) Atrial flutter with controlled response Current Visit: Yes Status: Acute Priority: High Code(s): I48.92 - UNSPECIFIED ATRIAL FLUTTER SNOMED Code(s): 0582673 Comment: -Rate control is adequate, not pursuing rhythm correction -This AM switched Eliquis 2.5 BID (2) Anemia Current Visit: Yes Status: Acute Priority: Medium Code(s): D64.9 - ANEMIA , UNSPECIFIED SNOMED Code(s): 770230482 Comment: - Improved - Appears due to ESRD, will check FOBT to r/o GI hemorrhage - nephrology to manage IV venofer, epogen (3) NSTEMI (non-ST elevated myocardial infarction) Current Visit: Yes Status: Acute Priority: High Code(s): I21.4 - NON-ST ELEVATION (NSTEMI) MYOCARDIAL INFARCTION SNOMED Code(s): 34433439 Comment: - Stress test negative for active ischemia, appears to be type 2 IN - Will be on plavix for now, switch to ASA in 07/14, 1 yr after stent placed - Going to label press operator today due to recurrent angina, EKG changes. (4) ESRD (end stage renal disease) Current Visit: Yes Status: Acute Priority: Medium Code(s): N18.6 - END STAGE RENAL DISEASE SNOMED Code(s): 76298761 Comment: -on HD- MWF -tolerated dialysis today (5) DVT prophylaxis Current Visit: Yes Status: Acute Priority: Low Onset Date: 02/01/15 Code (s): [id number] - SNOMED Code(s): 553418129 Comment: - on Eliquis Status and Disposition: inpatient
[2020-01-29] MEDS ORDERED: Midazolam* 1 MG/ML 5 ML VIAL (5 MG) ONE (15:01)
[2020-01-29] MEDS ORDERED: Lidocaine 1% INJ* 10 MG/ML 30 ML SDV ONE (15:01)
[2020-01-29] MEDS ORDERED: Heparin 2 UNITS/ML IVPREMIX* 3,000 ML IV ONE (15:01)
[2020-01-29] MEDS ORDERED: fentaNYL* 50 MCG/ML 2 ML VIAL (100 MCG VIAL) ONE ×2 (15:01→16:43)
[2020-01-29] MEDS ORDERED: Iodixanol 320 (CONTRAST) 100 ML SDV ONE ×2 (15:02→16:48)
[2020-01-29] MEDS ORDERED: Heparin(*) 1000 UNIT/ML 10 ML VIAL CATH LAB IV ONE ×2 (15:06→16:37)
[2020-01-29] MEDS ORDERED: nitroGLYCERIN DRIP* 25,000 MCG/250 ML BTL ONE (15:54)
[2020-01-29] MEDS ORDERED: Nitroglycerin TAB 0.4 MG* 0.4 MG TAB SL PRN (18:33)
[2020-01-29 18:45] LABS: INR 1.14 (0.82-1.09)
[2020-01-29] MEDS ORDERED: NS 0.9% 1000 ML** 1,000 ML IV SCH (18:45)
[2020-01-29 18:57] LABS: Activated Partial Thrombo Time >240.0 seconds (26.0-38.0)
[2020-01-29] MEDS: Atorvastatin* 80 MG TAB PO SCH (21:46)
[2020-01-29] MEDS: Terazosin CAP* 5 MG PO SCH (21:46)
[2020-01-29] MEDS: Finasteride TAB* 5 MG PO SCH (21:46)
[2020-01-29] MEDS ORDERED: traMADol TAB* 50 MG PO ONE (22:00)
[2020-01-30 04:42] LABS: ABS Eosinophils 0.2 10^3/ul (0-0.6); ABS Lymphocytes 0.7 10^3/ul (1.0-4.8); ABS Monocytes 0.5 10^3/ul (0-0.8); ABS Neutrophils 4.1 10^3/ul (1.5-7.7); Eosinophil % 2.8 %; Hematocrit 25 % (42-52); Hemoglobin 8.3 g/dL (14.0-18.0); Lymphocyte % 13.2 %; Mean Corpuscular HGB Conc 34 g/dL (31-36); Mean Corpuscular Hemoglobin 31 pg (27-31); Mean Corpuscular Volume 92 fL (80-94); Mean Platelet Volume 8.4 fL (7.4-10.4); Nucleated Red Blood Cells % 0.1; Platelet Count 148 10^3/uL (150-450); Red Blood Count 2.69 10^6 /uL (4.18-5.48); Red Cell Distribution Width 15 % (10-15); White Blood Count 5.6 10^3/uL (3.5-10.8)
[2020-01-30 05:05] LABS: Anion Gap 7 mmol/L (2-11); BUN/Creatinine Ratio 7.5 (8-20); Blood Urea Nitrogen 34 mg/dL (6-24); CO2 Carbon Dioxide 24 mmol/L (22-32); Calcium 8.4 mg/dL (8.6-10.3); Chloride 103 mmol/L (101-111); EGFR African American 15.9 (>60); EGFR Non-African American 13.1 (>60); Glucose 97 mg/dL (70-100); Potassium 4.3 mmol/L (3.5-5.0); Sodium 134 mmol/L (135-145)
[2020-01-30] MEDS: Insulin LISPRO* 1 UNITS UNIT SUBCUT SCH ×4 (07:28→20:49)
[2020-01-30] MEDS: Sertraline* 50 MG TAB PO SCH (07:50)
[2020-01-30] MEDS: MinoXIDil TAB* 2.5 MG TAB PO SCH ×2 (07:50→20:47)
[2020-01-30] MEDS: Clopidogrel TAB* 75 MG PO SCH (07:50)
[2020-01-30] MEDS: Magnesium Oxide TAB* 400 MG PO SCH (07:50)
[2020-01-30] MEDS: Lisinopril TAB* 5 MG PO SCH (07:50)
[2020-01-30] MEDS: Furosemide TAB* 40 MG PO SCH ×2 (07:50→20:47)
[2020-01-30] MEDS: busPIRone TAB* 10 MG PO SCH ×2 (07:50→20:46)
[2020-01-30] MEDS: Pantoprazole TAB * 40 MG TAB PO SCH (07:50)
[2020-01-30] MEDS: Metoprolol Succinate XL TAB* 25 MG PO SCH (07:50)
--- NOTE | 2020-01-30 11:17 | PN ---
Subjective Date of Service: 01/30/20 Interval History: f/u aflutter, NSTEMI s/p pci Patient feels good this AM no right shoulder or arm pain (angina symptom) No dyspnea No groin pain tele rate controlled atrial flutter, 11 beat nsvt at or less than 150 bpm Medications Active Medications: Acetaminophen/Codeine Phosphate (Tylenol/Codeine 30 Mg Tab*) 1 tab PO Q8H PRN PRN Reason: PAIN - MODERATE Last Admin: 01/29/20 19:42 Dose: 1 tab Al Hydrox/Mg Hydrox/Simethicone (Maalox Plus*) 30 ml PO Q6H PRN PRN Reason: INDIGESTION Apixaban (Eliquis*) 2.5 mg PO BID [facility] Atorvastatin Calcium (Lipitor*) 80 mg PO BEDTIME [facility] Last Admin: 01/29/20 21:46 Dose: 80 mg Buspirone HCl (Buspar Tab*) 10 mg PO BID [facility] Last Admin: 01/30/20 07:50 Dose: 10 mg Clopidogrel Bisulfate (Plavix Tab*) 75 mg PO DAILY [facility] Last Admin: 01/30/20 07:50 Dose: 75 mg Dextrose (D50w Syringe 50 Ml*) 12.5 gm IV PUSH .FOR FS < 60 - SS PRN PRN Reason: FS < 60 Finasteride (Proscar Tab*) 5 mg PO BEDTIME [facility] Last Admin: 01/29/20 21:46 Dose: 5 mg Furosemide (Lasix Tab*) 40 mg PO BID [facility] Last Admin: 01/30/20 07:50 Dose: 40 mg Insulin Human Lispro (Humalog*) 0 units SUBCUT [facility]; Protocol Last Admin: 01/30/20 07:28 Dose: Not Given Lisinopril (Prinivil Tab*) 5 mg PO QAM [facility] Last Admin: 01/30/20 07:50 Dose: 5 mg Magnesium Oxide (Magox 400 Tab*) 400 mg PO QAM [facility] Last Admin: 01/30/20 07:50 Dose: 400 mg Metoprolol Succinate (Toprol Xl Tab*) 25 mg PO DAILY [facility] Last Admin: 01/30/20 07:50 Dose: 25 mg Minoxidil (Loniten Tab*) 2.5 mg PO BID [facility] Last Admin: 01/30/20 07:50 Dose: 2.5 mg Nitroglycerin (Nitroglycerin Tab 0.4 Mg*) 0.4 mg SL Q5M PRN PRN Reason: ANGINA Pantoprazole Sodium (Protonix Tab*) 40 mg PO DAILY [facility] Last Admin: 01/30/20 07:50 Dose: 40 mg Sertraline HCl (Zoloft*) 50 mg PO QAM [facility] Last Admin: 01/30/20 07:50 Dose: 50 mg Terazosin HCl (Hytrin Cap*) 5 mg PO BEDTIME [facility] Last Admin: 01/29/20 21:46 Dose: 5 mg Objective Vital Signs: Temp Pulse Resp BP Pulse Ox 99.8 F 59 23 124/65 97 01/30/20 07:22 01/30/20 10:00 01/30/20 10:00 01/30/20 10:00 01/30/20 10:00 Oxygen Devices in Use Now: Nasal Cannula Appearance: chronically ill, nad Eyes: No Scleral Icterus, PERRLA Ears/Nose/Mouth/Throat: Mucous Membranes Moist Neck: Trachea Midline, No Thyroid Enlargement, Masses Respiratory: Symmetrical Chest Expansion and Respiratory Effort, Clear to Auscultation Cardiovascular: - - cabg scar noted, regular currently with 1/6 systolic murmur Abdominal: NL Sounds; No Tenderness; No Distention Extremities: No Edema - bounding PT pulses., - - right groin intact. no ecchymosis, pain or swelling Skin: No Rash or Ulcers Neurological: Alert and Oriented x 3, - Lines/Tubes/Other Access: Clean, Dry and Intact Peripheral IV, Clean, Dry and Intact Other Access - fistular RUE Laboratory Results: 01/30/20 04:30 01/30/20 04:30 INR (Anticoag Therapy) 1.14 (0.82-1.09) H 01/29/20 18:05 APTT 35.4 seconds (26.0-38.0) 01/30/20 04:30 Total Bilirubin 0.70 mg/dL (0.2-1.0) 01/29/20 06:01 AST 22 U/L (13-39) 01/29/20 06:01 ALT 27 U/L (7-52) 01/29/20 06:01 Alkaline Phosphatase 78 U/L (34-104) 01/29/20 06:01 CK-MB (CK-2) 3.6 ng/mL (0.6-6.3) 01/26/20 02:29 B-Natriuretic Peptide 947 pg/mL (<=100) H 01/26/20 02:29 Total Protein 5.6 g/dL (6.4-8.9) L 01/29/20 06:01 Albumin 3.5 g/dL (3.2-5.2) 01/29/20 06:01 Globulin 2.1 g/dL (2-4) 01/29/20 06:01 Albumin/Globulin Ratio 1.7 (1-3) 01/29/20 06:01 Triglycerides 170 mg/dL 01/26/20 02:29 Cholesterol 125 mg/dL 01/26/20 02:29 LDL Cholesterol 54 mg/dL 01/26/20 02:29 HDL Cholesterol 37.4 mg/dL 01/26/20 02:29 TSH 1.71 mcIU/mL (0.34-5.60) 01/26/20 09:40 01/26/20 01/26/20 01/26/20 02:29 05:30 08:35 Troponin I 0.76 H* 1.02 H* 2.01 H* 01/26/20 01/26/20 01/27/20 13:55 20:00 12:10 Troponin I 3.55 H* 3.33 H* 1.80 H* 01/30/20 04:30 Troponin I 1.30 H* Diagnostic Imaging: Transthoracic Echocardiogram Study Date: 01/26/2020 Summary: - Left ventricle: The cavity size is at the upper limits of normal. Wall thickness is mildly to moderately increased. Systolic function is normal. The estimated ejection fraction is 55-60%. Wall motion is normal; there are no regional wall motion abnormalities. - Right ventricle: Systolic function is normal. - Left atrium: The atrium is severely dilated. - Atrial septum: A closure device is present. - Mitral valve: There is mild to moderate regurgitation. - Aortic valve: There is no evidence of stenosis. CXR Exam Date: 01/26/20 FINDINGS: LINES AND TUBES: None. CARDIOMEDIASTINAL SILHOUETTE: The cardiac silhouette is mildly enlarged. The cardiomediastinal silhouette is otherwise normal for portable technique. PLEURA: The costophrenic angles are sharp. No pleural abnormalities are noted. LUNG PARENCHYMA: There is prominence of the central pulmonary vasculature. ABDOMEN: The upper abdomen is clear. There is no subphrenic gas. BONES AND SOFT TISSUES: The patient is status post median sternotomy. IMPRESSION: MILD CARDIOMEGALY WITH PULMONARY VASCULAR CONGESTION. Assessment/Plan 1. NSTEMI - Recurrent angina s/p medical treatment - Now s/p culprit ramus/Lcx PCI 2 Atrial flutter - Rate controlled, currently asymptomatic, LVEF normal - Known asymptomatic sinus node dysfunction - Rhythm control approach in this situation is known to substantially increase the risk of requiring atrial pacing pacemaker which we are trying to avoid given his infection risk with dialysis. 3. ESRD on HD 4. Anemia 5. HTN 6. 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 - Currently on toprol 25 mg po daily in place of home tartrate 12.5 mg - Continue plavix 75 mg po daily - Restart eliquis 2.5 mg po bid (ordered) - After 1 year, will change plavix to aspirin. This strategy is based on the [facility]IS trial - Patient can be transferred to telemetry - Would not discharge today
--- NOTE | 2020-01-30 11:41 | PN ---
Addendum entered and electronically signed by Radha Greene NP 01/30/20 14: 09: Progress Note - Progress Note Date of Service: 01/30/20 Note: Patient has a history of urinary retention, requiring a chronic chauhan. Original Note: <Radha Greene - Last Filed: 01/30/20 14:08> Progress Note - Progress Note Date of Service: 01/30/20 Note: Progress Note -- Critical Care 24 hour events/significant events: - Patient doing well, denies any further episodes of chest pain - Went to lab technician yesterday and is s/p PCI - Patient offers no complaints ROS: negative except for pertinent positives mentioned above Tele: aflutter, rate controlled Vitals: Vital Signs 01/29/20 01/29/20 01/29/20 12:59 13:34 13:47 Temperature 97.9 F 97.9 F Pulse Rate 53 119 60 Respiratory 17 21 Rate Blood Pressure 157/55 156/102 145/56 (mmHg) O2 Sat by Pulse 95 98 100 Oximetry 01/29/20 01/29/20 01/29/20 13:51 14:01 18:29 Temperature Pulse Rate 60 62 Respiratory 18 Rate Blood Pressure 153/57 142/61 (mmHg) O2 Sat by Pulse 98 Oximetry 01/29/20 01/29/20 01/29/20 18:31 18:45 19:00 Temperature Pulse Rate 87 80 Respiratory 17 28 14 Rate Blood Pressure 153/73 149/90 147/72 (mmHg) O2 Sat by Pulse 84 97 Oximetry 01/29/20 01/29/20 01/29/20 19:09 19:15 19:19 Temperature 99.3 F Pulse Rate Respiratory 14 21 Rate Blood Pressure 147/72 150/81 (mmHg) O2 Sat by Pulse Oximetry 01/29/20 01/29/20 01/29/20 19:27 19:30 19:45 Temperature 99.3 F Pulse Rate 77 80 Respiratory 18 31 Rate Blood Pressure 142/81 149/73 (mmHg) O2 Sat by Pulse 97 97 Oximetry 01/29/20 01/29/20 01/29/20 20:00 20:01 20:16 Temperature Pulse Rate 73 76 83 Respiratory 20 16 24 Rate Blood Pressure 147/72 142/76 (mmHg) O2 Sat by Pulse 97 98 98 Oximetry 01/29/20 01/29/2020 20:30 20:46 21:00 Temperature Pulse Rate 69 74 72 Respiratory 20 17 22 Rate Blood Pressure 154/84 135/73 144/95 (mmHg) O2 Sat by Pulse 99 97 98 Oximetry 01/29/20 01/29/20 01/29/20 22:00 22:22 23:00 Temperature 97.3 F Pulse Rate 66 75 61 Respiratory 22 15 18 Rate Blood Pressure 135/65 153/73 116/57 (mmHg) O2 Sat by Pulse 96 95 95 Oximetry 01/29/20 01/29/20 01/30/20 23:19 23:55 00:00 Temperature 98.9 F 98.9 F Pulse Rate 60 Respiratory 18 17 Rate Blood Pressure 137/65 (mmHg) O2 Sat by Pulse 93 Oximetry 01/30/20 01/30/20 01/30/20 00:22 01:00 02:00 Temperature Pulse Rate 60 60 75 Respiratory 20 19 19 Rate Blood Pressure 128/65 130/67 (mmHg) O2 Sat by Pulse 97 99 97 Oximetry 01/30/20 01/30/20 01/30/20 03:00 03:35 03:57 Temperature 98.7 F Pulse Rate 70 Respiratory 21 17 Rate Blood Pressure 135/73 (mmHg) O2 Sat by Pulse 99 Oximetry 01/30/20 01/30/20 01/30/20 04:00 05:00 06:00 Temperature Pulse Rate 61 61 59 Respiratory 20 21 18 Rate Blood Pressure 120/59 138/64 122/62 (mmHg) O2 Sat by Pulse 98 97 97 Oximetry 01/30/20 01/30/20 01/30/20 07:00 07:22 07:45 Temperature 99.8 F Pulse Rate Respiratory 15 14 Rate Blood Pressure 130/61 (mmHg) O2 Sat by Pulse Oximetry 01/30/20 01/30/20 01/30/20 08:00 09:00 10:00 Temperature Pulse Rate 60 60 59 Respiratory 23 14 23 Rate Blood Pressure 139/65 128/68 124/65 (mmHg) O2 Sat by Pulse 97 96 97 Oximetry Intake and Output Last 24 Hours 01/28/20 01/29/20 01/30/20 01/31/20 06:59 06:59 06:59 07:59 Intake Total 1050 4428 1920 1040 Output Total 730 2050 1100 Balance 320 2378 820 1040 Weight 229 lb 12 oz Intake: IV Fluids 300 Medicated IV 810 heparin 810 Heparin 548 Oral 240 3880 1620 1040 Output: Urine 0 Chauhan 730 2050 1100 Other: Date of Last Bowel 01/26/2020 01/26/2020 Movement O2: 2LNC Infusions: None Medications: Acetaminophen/Codeine Phosphate (Tylenol/Codeine 30 Mg Tab*) 1 tab PO Q8H PRN PRN Reason: PAIN - MODERATE Last Admin: 01/29/20 19:42 Dose: 1 tab Al Hydrox/Mg Hydrox/Simethicone (Maalox Plus*) 30 ml PO Q6H PRN PRN Reason: INDIGESTION Apixaban (Eliquis*) 2.5 mg PO BID [facility] Atorvastatin Calcium (Lipitor*) 80 mg PO BEDTIME [facility] Last Admin: 01/29/20 21:46 Dose: 80 mg Buspirone HCl (Buspar Tab*) 10 mg PO BID [facility] Last Admin: 01/30/20 07:50 Dose: 10 mg Clopidogrel Bisulfate (Plavix Tab*) 75 mg PO DAILY [facility] Last Admin: 01/30/20 07:50 Dose: 75 mg Dextrose (D50w Syringe 50 Ml*) 12.5 gm IV PUSH .FOR FS < 60 - SS PRN PRN Reason: FS < 60 Finasteride (Proscar Tab*) 5 mg PO BEDTIME [facility] Last Admin: 01/29/20 21:46 Dose: 5 mg Furosemide (Lasix Tab*) 40 mg PO BID [facility] Last Admin: 01/30/20 07:50 Dose: 40 mg Insulin Human Lispro (Humalog*) 0 units SUBCUT [facility]; Protocol Last Admin: 01/30/20 07:28 Dose: Not Given Lisinopril (Prinivil Tab*) 5 mg PO QAM [facility] Last Admin: 01/30/20 07:50 Dose: 5 mg Magnesium Oxide (Magox 400 Tab*) 400 mg PO QAM [facility] Last Admin: 01/30/20 07:50 Dose: 400 mg Metoprolol Succinate (Toprol Xl Tab*) 25 mg PO DAILY [facility] Last Admin: 01/30/20 07:50 Dose: 25 mg Minoxidil (Loniten Tab*) 2.5 mg PO BID [facility] Last Admin: 01/30/20 07:50 Dose: 2.5 mg Nitroglycerin (Nitroglycerin Tab 0.4 Mg*) 0.4 mg SL Q5M PRN PRN Reason: ANGINA Pantoprazole Sodium (Protonix Tab*) 40 mg PO DAILY [facility] Last Admin: 01/30/20 07:50 Dose: 40 mg Sertraline HCl (Zoloft*) 50 mg PO QAM [facility] Last Admin: 01/30/20 07:50 Dose: 50 mg Terazosin HCl (Hytrin Cap*) 5 mg PO BEDTIME [facility] Last Admin: 01/29/20 21:46 Dose: 5 mg Physical Exam: Constitutional: awake, alert, no distress, no diaphoresis Head: normocephalic, atraumatic Eyes: no pallor, no icterus ENT: moist mucous membranes Neck: soft, supple CVS: normal rate, regular, no obvious murmur Chest/Resp: bilateral air entry, no rhales, no wheeze, no rhonchi, no acc muscle use Abdomen/GI: soft, nontender, nondistended, BS+ Ext/Msk: warm, pulses+, no edema Skin: intact, warm, right groin puncture site CDI Neuro: awake, alert, orientedx3, moving all extremities, no gross focal deficit. Poor historian however Psych: normal affect Labs: Laboratory Results - last 24 hr 01/29/20 01/29/20 01/29/20 11:43 17:19 17:42 WBC RBC Hgb Hct MCV MCH MCHC RDW Plt Count MPV Neut % (Auto) Lymph % (Auto) [place] % (Auto) Eos % (Auto) Baso % (Auto) Absolute Neuts (auto) Absolute Lymphs (auto) Absolute Monos (auto) Absolute Eos (auto) Absolute Basos (auto) Absolute Nucleated RBC Nucleated RBC % INR (Anticoag Therapy) APTT POC Activ Clotting Time 187 199 Sodium Potassium Chloride Carbon Dioxide Anion Gap BUN Creatinine Est GFR ( Amer) Est GFR (Non-Af Amer) BUN/Creatinine Ratio Glucose POC Glucose (mg/dL) 110 H Calcium Magnesium Troponin I 01/29/20 01/29/20 01/30/20 18:05 21:37 04:30 WBC 5.6 RBC 2.69 L Hgb 8.3 L Hct 25 L MCV 92 MCH 31 MCHC 34 RDW 15 Plt Count 148 L MPV 8.4 Neut % (Auto) 73.6 Lymph % (Auto) 13.2 [place] % (Auto) 9.7 Eos % (Auto) 2.8 Baso % (Auto) 0.7 Absolute Neuts (auto) 4.1 Absolute Lymphs (auto) 0.7 L Absolute Monos (auto) 0.5 Absolute Eos (auto) 0.2 Absolute Basos (auto) 0.0 Absolute Nucleated RBC 0.0 Nucleated RBC % 0.1 INR (Anticoag Therapy) 1.14 H APTT >240.0 H* POC Activ Clotting Time Sodium Potassium Chloride Carbon Dioxide Anion Gap BUN Creatinine Est GFR ( Amer) Est GFR (Non-Af Amer) BUN/Creatinine Ratio Glucose POC Glucose (mg/dL) 190 H Calcium Magnesium Troponin I 01/30/20 01/30/20 04:30 04:30 WBC RBC Hgb Hct MCV MCH MCHC RDW Plt Count MPV Neut % (Auto) Lymph % (Auto) [place] % (Auto) Eos % (Auto) Baso % (Auto) Absolute Neuts (auto) Absolute Lymphs (auto) Absolute Monos (auto) Absolute Eos (auto) Absolute Basos (auto) Absolute Nucleated RBC Nucleated RBC % INR (Anticoag Therapy) APTT 35.4 POC Activ Clotting Time Sodium 134 L Potassium 4.3 Chloride 103 Carbon Dioxide 24 Anion Gap 7 BUN 34 H Creatinine 4.52 H Est GFR ( Amer) 15.9 Est GFR (Non-Af Amer) 13.1 BUN/Creatinine Ratio 7.5 L Glucose 97 POC Glucose (mg/dL) Calcium 8.4 L Magnesium 2.0 Troponin I 1.30 H* Imaging: Echo 01/25: LV wall size moderately increased. EF 55-60%. Left atrium severely dilated, atrial septum has closure device in place, mitral valve mild to moderate regurgitation. 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 Had been feeling unwell for a few days prior. Had persistent chest pain with activity on 01/28 and was taken to lab technician. - NSTEMI - Atrial flutter - HTN Plan: Neuro- - No active issues -Delirium prec; avoid BDZ CVS- - HTN: chronic. Controlled with current regimen -Maintain MAP>65 as long as SBP<160 - Aflutter: chronic. - Continue eliquis 2.5mgBID and metoprolol - NSTEMI: acute, s/p PCI Resp- - No active issues -Wean Fio2 to keep sat>92% -Aspiration prec, Pulmonary Toilet ID- - No active issues - Goal temp<101 GI- -Nutrition: Heart healthy diet -GI prophylaxis: PPI Renal- - ESRD: chronic, on HD. -strict I/O, replete to keep K>4, Mg>2 -Discontinue chauhan Heme- - Anemia: chronic. Appears to be at his baseline Endo- - DM: chronic - Maintain BG<200, insulin protocol Musculsk- pressure ulcer prophylaxis. OOB Wounds- right groin puncture site CDI Nutrition- heart healthy DVT prophylaxis: eliquis GI prophylaxis: PPI Chauhan Catheter: discontinue Disposition: Patient can be transferred to floor. Ok with cardiology. Patient clinical status: stable. Code Status: FULL <Jazmin Akbar - Last Filed: 01/30/20 16:34> Progress Note - Progress Note Note: Attending physician attestation: Pt seen and examined at bedside. Plan of care was discussed with bedside RN and Rupal Greene [employer]. Agree with above assessment and plan. 64 y o m with ESRD on HD, s/p cardiac cath last night. Pt has been doing well this morning. He had short run of V tach in the morning. He was seen by cardiology and was cleared for transfer to telemetry. C/w Eliquis and metoprolol
--- NOTE | 2020-01-30 12:41 | PN ---
Progress Note - Progress Note Date of Service: 01/30/20 Note: Chief complaint: End-stage kidney disease on hemodialysis Saturday. nstemi History of present illness: Mr. Watson had right sided shoulder and chest pain yesterday and he had a cardiac cath with 3 stents placements.no recurrent chest /right arm pain over night. he is resting comfortably in bed at the time of my exam. appetite is great. Review of systems Constitutional: No fevers, chills, night sweats, loss of appetite Cardiovascular: No chest pain, shortness of breath, palpitations, or leg swelling : Still makes urine without LUTS Laboratory Last Values Abnormal Lab Results 01/29/20 01/30/20 01/30/20 21:37 04:30 04:30 WBC 5.6 RBC 2.69 L Hgb 8.3 L Hct 25 L MCV 92 MCH 31 MCHC 34 RDW 15 Plt Count 148 L MPV 8.4 Neut % (Auto) 73.6 Lymph % (Auto) 13.2 [place] % (Auto) 9.7 Eos % (Auto) 2.8 Baso % (Auto) 0.7 Absolute Neuts (auto) 4.1 Absolute Lymphs (auto) 0.7 L Absolute Monos (auto) 0.5 Absolute Eos (auto) 0.2 Absolute Basos (auto) 0.0 Absolute Nucleated RBC 0.0 Nucleated RBC % 0.1 INR (Anticoag Therapy) APTT POC Activ Clotting Time Sodium 134 L Potassium 4.3 Chloride 103 Carbon Dioxide 24 Anion Gap 7 BUN 34 H Creatinine 4.52 H Est GFR ( Amer) 15.9 Est GFR (Non-Af Amer) 13.1 BUN/Creatinine Ratio 7.5 L Glucose 97 POC Glucose (mg/dL) 190 H Calcium 8.4 L Magnesium 2.0 Troponin I 1.30 H* active meds Acetaminophen/Codeine Phosphate (Tylenol/Codeine 30 Mg Tab*) 1 tab PO Q8H PRN PRN Reason: PAIN - MODERATE Last Admin: 01/29/20 19:42 Dose: 1 tab Al Hydrox/Mg Hydrox/Simethicone (Maalox Plus*) 30 ml PO Q6H PRN PRN Reason: INDIGESTION Apixaban (Eliquis*) 2.5 mg PO BID [facility] Atorvastatin Calcium (Lipitor*) 80 mg PO BEDTIME [facility] Last Admin: 01/29/20 21:46 Dose: 80 mg Buspirone HCl (Buspar Tab*) 10 mg PO BID [facility] Last Admin: 01/30/20 07:50 Dose: 10 mg Clopidogrel Bisulfate (Plavix Tab*) 75 mg PO DAILY [facility] Last Admin: 01/30/20 07:50 Dose: 75 mg Dextrose (D50w Syringe 50 Ml*) 12.5 gm IV PUSH .FOR FS < 60 - SS PRN PRN Reason: FS < 60 Finasteride (Proscar Tab*) 5 mg PO BEDTIME [facility] Last Admin: 01/29/20 21:46 Dose: 5 mg Furosemide (Lasix Tab*) 40 mg PO BID [facility] Last Admin: 01/30/20 07:50 Dose: 40 mg Insulin Human Lispro (Humalog*) 0 units SUBCUT [facility]; Protocol Last Admin: 01/30/20 07:28 Dose: Not Given Lisinopril (Prinivil Tab*) 5 mg PO QAM [facility] Last Admin: 01/30/20 07:50 Dose: 5 mg Magnesium Oxide (Magox 400 Tab*) 400 mg PO QAM [facility] Last Admin: 01/30/20 07:50 Dose: 400 mg Metoprolol Succinate (Toprol Xl Tab*) 25 mg PO DAILY [facility] Last Admin: 01/30/20 07:50 Dose: 25 mg Minoxidil (Loniten Tab*) 2.5 mg PO BID [facility] Last Admin: 01/30/20 07:50 Dose: 2.5 mg Nitroglycerin (Nitroglycerin Tab 0.4 Mg*) 0.4 mg SL Q5M PRN PRN Reason: ANGINA Pantoprazole Sodium (Protonix Tab*) 40 mg PO DAILY [facility] Last Admin: 01/30/20 07:50 Dose: 40 mg Sertraline HCl (Zoloft*) 50 mg PO QAM [facility] Last Admin: 01/30/20 07:50 Dose: 50 mg Terazosin HCl (Hytrin Cap*) 5 mg PO BEDTIME [facility] Last Admin: 01/29/20 21:46 Dose: 5 mg Intake & Output 01/28/20 01/29/20 01/30/20 01/31/20 06:59 06:59 06:59 07:59 Intake Total 1050 4428 1920 1040 Output Total 730 2050 1100 Balance 320 2378 820 1040 Weight 104.213 kg Intake: IV Fluids 300 Medicated IV 810 heparin 810 Heparin 548 Oral 240 3880 1620 1040 Output: Urine 0 Joe 730 2049 1100 Other: Date of Last Bowel 01/26/2020 01/26/2020 Movement Physical exam: Temp Pulse Resp BP SpO2 FiO2 99.8 F 59 14 125/62 95 01/30/20 11:37 01/30/20 12:00 01/30/20 12:00 01/30/20 12:00 01/30/20 12:00 No acute distress, lying flat in bed without shortness of breath chest is clear to auscultation bilaterally Heart exam shows S1, S2, regular rate and rhythm, no murmurs rubs or gallops. No significant lower extremities edema. Psychiatric: aao x3 insight appropriate, mood normal. Assessment and plan: 1. End-stage kidney disease on hemodialysis Saturday. No need for additional hemodialysis treatment today. 2. Anemia of esrd . on david with hd. 3. A flutter. rate controlled. 4. Coronary artery disease. s/p PCTA WITH STENTS yest. 5. Hypertension well controlled, no changes.
[2020-01-30] MEDS: Apixaban* 2.5 MG TAB PO SCH ×2 (12:56→20:46)
[2020-01-30] MEDS: Terazosin CAP* 5 MG PO SCH (20:46)
[2020-01-30] MEDS: Atorvastatin* 80 MG TAB PO SCH (20:46)
[2020-01-30] MEDS: Finasteride TAB* 5 MG PO SCH (20:46)
--- NOTE | 2020-01-30 23:47 | CATH ---
CC: Dr. Caban; Dr. Beltre * STENT REPORT: DATE OF PROCEDURE: 01/29/20 - ROOM #431 PRIMARY CARE PHYSICIAN: Dr. Caban. COCONUT CANDY MAKER: Dr. Beltre. PROCEDURES: Right common femoral artery access; MARTINEZ angiography; bilateral selective coronary cineangiography; left heart catheterization; iFR evaluation circumflex and ramus; stent placement, ramus and circumflex, 3.0 x 12 Synergy drug-eluting stents in a kissing fashion. More distal circumflex, 3 x 16 Synergy drug- eluting stent; Angio-Seal, right common femoral artery. HISTORY: A 64-year-old male with prior bypass grafting. Last year, he had re- stenting of the free radial artery pedicle graft to the RPDA for recurring restenosis. Shortly thereafter, he had bifurcation stenting of the ramus as well as proximal circumflex. He now returns with a non-ST elevation infarct, on imaging he has a small inferolateral reversible defect, actually improved from last year. He failed medical management with recurrence of angina with minimal effort, therefore underwent catheterization. PROCEDURE ACCESS: Right common femoral artery sheath 5-Khmer. DIAGNOSTIC CATHETERS: 5F LUIS, 5F MP, subsequently upsized to 6.5-Khmer sheath for left coronary intervention. GUIDING CATHETER: 6FL 3.5. INTERVENTIONAL WIRES: 14 BMW, ChoICE PT Floppy, run through 14 PT Graphix, a 2.5 over the wire balloon was used for wire exchanges. iFR evaluation with Comet pressure wire. STENTS: Synergy drug-eluting stents 3.0 x 12 at the origin of ramus and circumflex extending back into the left main in a kissing fashion, mid circumflex 3.0 x 16 Synergy drug-eluting stent. MEDICATIONS: 1. Subcu lidocaine. 2. IV Versed. 3. IV fentanyl. 4. Heparin 17,000 units total with still persistently relatively low ACT. DESCRIPTION OF PROCEDURE: After diagnostic angiography, iFR of the proximal ramus and the two lesions in the circumflex was performed. An end-hole balloon catheter was used to facilitate access of the circumflex with the iFR wire. He subsequently had percutaneous revascularization of the ramus origin as well as circumflex origin extending back into the left main in the kissing fashion with deployment of 3 x 12 Synergy drug-eluting stent post dilated to 16 atmospheres with simultaneous inflation. The somewhat more distal circumflex stenosis was then stented with a 3 x 16 Synergy drug-eluting stent post dilated with an NC balloon. Blood was sent to lab for independent coag evaluation. There were no thrombotic complications. I was reluctant to give him additional heparin blindly as he had received a NOAC this morning and is already at increased breathing risk by virtue of his renal insufficiency. HEMODYNAMICS: Initial BP 145/82, LV 130/20, no aortic valve gradient on pullback. iFR in the ramus preintervention 0.85, iFR within the circumflex across both lesions 0.62, iFR across the ostium of the circumflex 0.55. ANGIOGRAPHY: Right common femoral entry sheath entry is in segment 2, there is no stenosis. LUIS: The LUIS is large, patent, inserts into the mid LAD, fills at antegrade to the apex as well as retrograde to its proximal occlusion. The LAD is fairly diffusely diseased without any critical stenosis. The retrograde filling portion of the LAD supplies a relatively small caliber diagonal that has moderate stenosis. The proximal LAD is occluded. Free radial graft to RPDA, it arises from the right side of the aorta below circular ring marker. It has numerous proximal stents as well as mid stents, there is no significant stenosis. It supplies to PDA, the robinson RCA fills retrograde from the PDA, it is small and diffusely diseased. Incidentally noted is an ASD closure device. Left main: The left main is calcified, moderate, has no significant stenosis. LAD: The LAD is occluded few millimeters from the origin. Circumflex: The circumflex is moderate, not dominant with a large first marginal or ramus branch which was previously stented, has ostial 50% to 60% stenosis. The circumflex continuation has been stented, has 60% stenosis. Few centimeters more distally, there is a 60% to 70% stenosis. These were all iFR positive and were stented. After bifurcation kissing stent deployment of the ramus and circumflex extending back into the left main and high pressure postdilatation, there is no residual stenosis, JAE-3 flow. There is no dissection. CONCLUSION: 1. Relatively early in-stent restenosis of the ramus and proximal circumflex with progression of mid circumflex stenosis, excellent angiographic result with drug-eluting stent placement with iFR guidance. 2. Patent MARTINEZ to the LAD, patent free radial graft to the RPDA without restenosis. 3. Successful Angio-Seal right common femoral artery. 4. No aortic stenosis, mildly elevated LVDP. [id number]/[facility] #: [id number] KIKI
[2020-01-31] MEDS: Acetaminophen TAB* 325 MG PO PRN ×2 (04:35→19:48)
[2020-01-31] MEDS: Insulin LISPRO* 1 UNITS UNIT SUBCUT SCH ×4 (07:39→19:20)
[2020-01-31] MEDS: Pantoprazole TAB * 40 MG TAB PO SCH (08:10)
[2020-01-31] MEDS: Furosemide TAB* 40 MG PO SCH ×2 (08:10→20:08)
[2020-01-31] MEDS: Metoprolol Succinate XL TAB* 25 MG PO SCH (08:10)
[2020-01-31] MEDS: Clopidogrel TAB* 75 MG PO SCH (08:11)
[2020-01-31] MEDS: Apixaban* 2.5 MG TAB PO SCH ×2 (08:11→20:07)
[2020-01-31] MEDS: MinoXIDil TAB* 2.5 MG TAB PO SCH ×2 (08:11→20:06)
[2020-01-31] MEDS: Sertraline* 50 MG TAB PO SCH (08:11)
[2020-01-31] MEDS: Lisinopril TAB* 5 MG PO SCH (08:11)
[2020-01-31] MEDS: busPIRone TAB* 10 MG PO SCH ×2 (08:11→20:07)
[2020-01-31] MEDS: Magnesium Oxide TAB* 400 MG PO SCH (08:17)
--- NOTE | 2020-01-31 10:14 | PN ---
Subjective Date of Service: 01/31/20 Interval History: Pt felt his r arm "sore" last night. tired today. Has not walked further than to bathroom since his cath. On 02 at night for HOWARD Telem shows frequent PVC-uniform Family History: Unchanged from Admission Social History: Unchanged from Admission Past Medical History: Unchanged from Admission Objective Active Medications: Acetaminophen (Tylenol Tab*) 650 mg PO Q6H PRN PRN Reason: PAIN-MILD/TEMP >/= 100.4 Last Admin: 01/31/20 04:35 Dose: 650 mg Acetaminophen/Codeine Phosphate (Tylenol/Codeine 30 Mg Tab*) 1 tab PO Q8H PRN PRN Reason: PAIN - MODERATE Last Admin: 01/29/20 19:42 Dose: 1 tab Al Hydrox/Mg Hydrox/Simethicone (Maalox Plus*) 30 ml PO Q6H PRN PRN Reason: INDIGESTION Apixaban (Eliquis*) 2.5 mg PO BID [facility] Last Admin: 01/31/20 08:11 Dose: 2.5 mg Atorvastatin Calcium (Lipitor*) 80 mg PO BEDTIME [facility] Last Admin: 01/30/20 20:46 Dose: 80 mg Buspirone HCl (Buspar Tab*) 10 mg PO BID [facility] Last Admin: 01/31/20 08:11 Dose: 10 mg Clopidogrel Bisulfate (Plavix Tab*) 75 mg PO DAILY [facility] Last Admin: 01/31/20 08:11 Dose: 75 mg Dextrose (D50w Syringe 50 Ml*) 12.5 gm IV PUSH .FOR FS < 60 - SS PRN PRN Reason: FS < 60 Finasteride (Proscar Tab*) 5 mg PO BEDTIME [facility] Last Admin: 01/30/20 20:46 Dose: 5 mg Furosemide (Lasix Tab*) 40 mg PO BID [facility] Last Admin: 01/31/20 08:10 Dose: 40 mg Insulin Human Lispro (Humalog*) 0 units SUBCUT [facility]; Protocol Last Admin: 01/31/20 07:39 Dose: Not Given Lisinopril (Prinivil Tab*) 5 mg PO QAM [facility] Last Admin: 01/31/20 08:11 Dose: 5 mg Magnesium Oxide (Magox 400 Tab*) 400 mg PO QAM [facility] Last Admin: 01/31/20 08:17 Dose: 400 mg Metoprolol Succinate (Toprol Xl Tab*) 25 mg PO DAILY [facility] Last Admin: 01/31/20 08:10 Dose: 25 mg Minoxidil (Loniten Tab*) 2.5 mg PO BID [facility] Last Admin: 01/31/20 08:11 Dose: 2.5 mg Nitroglycerin (Nitroglycerin Tab 0.4 Mg*) 0.4 mg SL Q5M PRN PRN Reason: ANGINA Pantoprazole Sodium (Protonix Tab*) 40 mg PO DAILY [facility] Last Admin: 01/31/20 08:10 Dose: 40 mg Sertraline HCl (Zoloft*) 50 mg PO QAM [facility] Last Admin: 01/31/20 08:11 Dose: 50 mg Terazosin HCl (Hytrin Cap*) 5 mg PO BEDTIME [facility] Last Admin: 01/30/20 20:46 Dose: 5 mg Vital Signs - 8 hr 01/31/20 01/31/20 01/31/20 03:15 07:15 08:00 Temperature 99.2 F 97.9 F Pulse Rate 75 86 Respiratory 17 20 201 Rate Blood Pressure 155/70 140/51 (mmHg) O2 Sat by Pulse 95 96 Oximetry Oxygen Devices in Use Now: None Appearance: 64 yo M in nAD, aAOx3 Eyes: No Scleral Icterus, PERRLA Ears/Nose/Mouth/Throat: NL Teeth, Lips, Gums, Mucous Membranes Moist Neck: NL Appearance and Movements; NL JVP, Trachea Midline Respiratory: Symmetrical Chest Expansion and Respiratory Effort, - - fine bibasiliar crackles Cardiovascular: RRR, - - irregular Abdominal: NL Sounds; No Tenderness; No Distention, No Hepatosplenomegaly Lymphatic: No Cervical Adenopathy Extremities: No Edema, - - R forearm fistula with +thrill Skin: No Rash or Ulcers Neurological: Alert and Oriented x 3, NL Muscle Strength and Tone Result Diagrams: 01/30/20 04:30 01/30/20 04:30 Additional Lab and Data: Laboratory Tests 01/29/20 01/29/20 01/29/20 06:01 06:01 07:31 APTT 72.0 H POC Glucose (mg/dL) 139 H Hemoglobin A1c 6.0 H 01/29/20 11:43 APTT POC Glucose (mg/dL) 110 H Hemoglobin A1c Microbiology and Other Data: FOBT not collected EKG Data: telemetry; a-flutter, V-rate 60 Assess/Plan/Problems-Billing Assessment: 64 yo man w/ ESRD, CAD, here with nonSTEMI, new atrial flutter - Patient Problems (1) NSTEMI (non-ST elevated myocardial infarction) Comment: - Recurrent angina s/p medical treatment -pt's angina deonstrated by r arm pain, R arm "sore last night" - Now s/p culprit ramus/Lcx PCI-2 stents on 01/29/20 -cont Plavix -unifocal PVC's noted, NSVT on 01/30/20 at 11 beats (2) HOWARD (obstructive sleep apnea) Comment: on at night will check overnight pulse ox to possibly qualify for at night at home (3) Anemia Comment: - Appears due to ESRD - nephrology to manage IV venofer, epogen (4) Atrial flutter with controlled response Comment: -Rate control is adequate, not pursuing rhythm correction -cont Eliquis 2.5 BID (5) ESRD (end stage renal disease) Comment: -on HD- MWF -still makes urine, has Joe in place (6) CVA (cerebral vascular accident) Comment: - h/o with very mild occasional residual expressive aphasia - On plavix for now and statins (7) Type II diabetes mellitus Comment: - Lispro SS with accuchecks [place] (8) DVT prophylaxis Comment: - on Eliquis Status and Disposition: inpatient
--- NOTE | 2020-01-31 19:06 | PN ---
Progress Note - Progress Note Date of Service: 01/31/20 Note: Pt walked several "loops "around the unit and after last one he had R shoulder pain when getting back to bed. He also c/o of SOB at the end of the last loop. Tx with Nitro SL and pain resolved. Now comfortable, on exam lungs clear. EKG shows no acute changes. Troponin is pending Reassured pt and . Will await troponin.
[2020-01-31 19:23] LABS: Troponin I 0.91 ng/mL (<0.03)
[2020-01-31] MEDS: Finasteride TAB* 5 MG PO SCH (20:07)
[2020-01-31] MEDS: Atorvastatin* 80 MG TAB PO SCH (20:07)
[2020-01-31] MEDS: Terazosin CAP* 5 MG PO SCH (20:07)
--- NOTE | 2020-01-31 21:29 | PN ---
Progress Note - Progress Note Date of Service: 01/31/20 Note: cc: ESRD , cp HPI: Mr. Watson had right shoulder pain last night , relieved by ntg. he was resting in chair at the time of my visit. c/o he had a bad night, being awaken often after c/o CP. he is due to HD tomorrow. has no shou;delvin pain at the time of my visit. ROS: NAD at the time of my exam gi: no abd pain, nausea , vomiting or diarrhea PE:nad, chest cta, heart s1, s2 rrr, no mrg, no le edema , aao x3 Temp Pulse Resp BP SpO2 FiO2 97.6 F 70 18 168/64 94 01/31/20 18:17 01/31/20 18:17 01/31/20 18:30 01/31/20 18:17 01/31/20 18:17 a/p . 1 ESRD - HD tomorrow , no need for it today . 2. recurrent anginal pain... per primary and cards. 3. HTN - overall well controlled. 4. A flutter - rate controlled. Acetaminophen (Tylenol Tab*) 650 mg PO Q6H PRN PRN Reason: PAIN-MILD/TEMP >/= 100.4 Last Admin: 01/31/20 19:48 Dose: 650 mg Al Hydrox/Mg Hydrox/Simethicone (Maalox Plus*) 30 ml PO Q6H PRN PRN Reason: INDIGESTION Apixaban (Eliquis*) 2.5 mg PO BID [facility] Last Admin: 01/31/20 20:07 Dose: 2.5 mg Atorvastatin Calcium (Lipitor*) 80 mg PO BEDTIME [facility] Last Admin: 01/31/20 20:07 Dose: 80 mg Buspirone HCl (Buspar Tab*) 10 mg PO BID [facility] Last Admin: 01/31/20 20:07 Dose: 10 mg Clopidogrel Bisulfate (Plavix Tab*) 75 mg PO DAILY [facility] Last Admin: 01/31/20 08:11 Dose: 75 mg Dextrose (D50w Syringe 50 Ml*) 12.5 gm IV PUSH .FOR FS < 60 - SS PRN PRN Reason: FS < 60 Finasteride (Proscar Tab*) 5 mg PO BEDTIME [facility] Last Admin: 01/31/20 20:07 Dose: 5 mg Furosemide (Lasix Tab*) 40 mg PO BID [facility] Last Admin: 01/31/20 20:08 Dose: 40 mg Insulin Human Lispro (Humalog*) 0 units SUBCUT [facility]; Protocol Last Admin: 01/31/20 19:20 Dose: Not Given Lisinopril (Prinivil Tab*) [facility] [place] Last Admin: 01/31/20 08:11 Dose: 5 mg Magnesium Oxide (Magox 400 Tab*) 400 mg PO [facility] Last Admin: 01/31/20 08:17 Dose: 400 mg Metoprolol Succinate (Toprol Xl Tab*) 25 mg PO DAILY [facility] Last Admin: 01/31/20 08:10 Dose: 25 mg Minoxidil (Loniten Tab*) 2.5 mg PO BID [facility] Last Admin: 01/31/20 20:06 Dose: 2.5 mg Nitroglycerin (Nitroglycerin Tab 0.4 Mg*) 0.4 mg SL Q5M PRN PRN Reason: ANGINA Pantoprazole Sodium (Protonix Tab*) 40 mg PO DAILY [facility] Last Admin: 01/31/20 08:10 Dose: 40 mg Sertraline HCl (Zoloft*) [facility] [place] Last Admin: 01/31/20 08:11 Dose: 50 mg Terazosin HCl (Hytrin Cap*) 5 mg PO BEDTIME [facility] Last Admin: 01/31/20 20:07 Dose: 5 mg Laboratory Results - last 24 hr 01/30/20 01/31/20 01/31/20 20:37 06:19 11:40 POC Glucose (mg/dL) 154 H 121 H 169 H Troponin I 01/31/20 18:56 POC Glucose (mg/dL) Troponin I 0.91 H*
[2020-01-31 23:15] LABS: Troponin I 0.95 ng/mL (<0.03)
[2020-02-01 02:41] LABS: Troponin I 0.88 ng/mL (<0.03)
[2020-02-01 05:59] LABS: ABS Eosinophils 0.1 10^3/ul (0-0.6); ABS Lymphocytes 0.6 10^3/ul (1.0-4.8); ABS Monocytes 0.8 10^3/ul (0-0.8); Eosinophil % 1.3 %; Hematocrit 23 % (42-52); Hemoglobin 8.1 g/dL (14.0-18.0); Lymphocyte % 8.5 %; Mean Corpuscular HGB Conc 35 g/dL (31-36); Mean Corpuscular Hemoglobin 32 pg (27-31); Mean Corpuscular Volume 91 fL (80-94); Mean Platelet Volume 9.8 fL (7.4-10.4); Platelet Count 116 10^3/uL (150-450); Red Blood Count 2.58 10^6 /uL (4.18-5.48); Red Cell Distribution Width 14 % (10-15); White Blood Count 7.6 10^3/uL (3.5-10.8)
[2020-02-01] MEDS: Acetaminophen TAB* 325 MG PO PRN ×2 (06:09→20:18)
[2020-02-01 06:14] LABS: BUN/Creatinine Ratio 9.3 (8-20); Calcium 8.6 mg/dL (8.6-10.3); EGFR African American 9.6 (>60); EGFR Non-African American 7.9 (>60); Potassium 4.4 mmol/L (3.5-5.0)
[2020-02-01] MEDS ORDERED: Ondansetron INJ* 2 MG/ML VIAL IV PRN (08:14)
[2020-02-01] MEDS ORDERED: Lidocaine 1% INJ* 10 MG/ML 30 ML SDV ONE (08:38)
[2020-02-01] MEDS ORDERED: Heparin 2 UNITS/ML IVPREMIX* 2,000 ML IV ONE (08:38)
[2020-02-01] MEDS ORDERED: Iodixanol 320 (CONTRAST) 100 ML SDV ONE ×2 (08:38→09:18)
[2020-02-01] MEDS ORDERED: Aspirin 81 mg CHEW TAB* 81 MG TAB.CHEW ONE (08:42)
[2020-02-01] MEDS ORDERED: nitroGLYCERIN DRIP* 25,000 MCG/250 ML BTL ONE ×2 (08:42→08:50)
[2020-02-01] MEDS ORDERED: Nitroglycerin TAB 0.4 MG* 0.4 MG TAB ONE (08:42)
[2020-02-01] MEDS ORDERED: Ticagrelor* 90 MG TAB PO ONE (08:42)
[2020-02-01] MEDS ORDERED: Heparin for STEMI(*) 5,000 UNITS/ML 1 ML VIAL IV ONE (08:42)
[2020-02-01] MEDS ORDERED: Heparin(*) 1000 UNIT/ML 10 ML VIAL CATH LAB IV ONE (08:47)
[2020-02-01] MEDS ORDERED: fentaNYL* 50 MCG/ML 2 ML VIAL (100 MCG VIAL) ONE (08:49)
[2020-02-01] MEDS ORDERED: Flumazenil* 0.1 MG/ML 5 ML MDV ONE (08:49)
[2020-02-01] MEDS ORDERED: Midazolam* 1 MG/ML 5 ML VIAL (5 MG) ONE (08:49)
[2020-02-01] MEDS ORDERED: Naloxone* 0.4 MG/ML 1 ML VIAL ONE (08:49)
[2020-02-01] MEDS ORDERED: Heparin 2 UNITS/ML IVPREMIX* 1,000 ML IV ONE (08:51)
[2020-02-01] MEDS ORDERED: Bivalirudin(*) 250 MG VIAL ONE (08:54)
--- NOTE | 2020-02-01 09:09 | PN ---
Subjective Date of Service: 02/01/20 Interval History: f/u aflutter, NSTEMI s/p pci Patient with severe right chest, shoulder and arm pain this AM associated with rapid atrial flutter and st depression concerns discussed for stent thrombosis with Dr. Hannon advised stemi activation Medications Active Medications: Acetaminophen (Tylenol Tab*) 650 mg PO Q6H PRN PRN Reason: PAIN-MILD/TEMP >/= 100.4 Last Admin: 02/01/20 06:09 Dose: 650 mg Al Hydrox/Mg Hydrox/Simethicone (Maalox Plus*) 30 ml PO Q6H PRN PRN Reason: INDIGESTION Apixaban (Eliquis*) 2.5 mg PO BID [facility] Last Admin: 01/31/20 20:07 Dose: 2.5 mg Atorvastatin Calcium (Lipitor*) 80 mg PO BEDTIME [facility] Last Admin: 01/31/20 20:07 Dose: 80 mg Buspirone HCl (Buspar Tab*) 10 mg PO BID [facility] Last Admin: 01/31/20 20:07 Dose: 10 mg Clopidogrel Bisulfate (Plavix Tab*) 75 mg PO DAILY [facility] Last Admin: 01/31/20 08:11 Dose: 75 mg Dextrose (D50w Syringe 50 Ml*) 12.5 gm IV PUSH .FOR FS < 60 - SS PRN PRN Reason: FS < 60 Finasteride (Proscar Tab*) 5 mg PO BEDTIME [facility] Last Admin: 01/31/20 20:07 Dose: 5 mg Furosemide (Lasix Tab*) 40 mg PO BID [facility] Last Admin: 01/31/20 20:08 Dose: 40 mg Insulin Human Lispro (Humalog*) 0 units SUBCUT [facility]; Protocol Last Admin: 01/31/20 19:20 Dose: Not Given Lisinopril (Prinivil Tab*) 5 mg PO QAM [facility] Last Admin: 01/31/20 08:11 Dose: 5 mg Magnesium Oxide (Magox 400 Tab*) 400 mg PO QAM [facility] Last Admin: 01/31/20 08:17 Dose: 400 mg Metoprolol Succinate (Toprol Xl Tab*) 25 mg PO DAILY [facility] Last Admin: 01/31/20 08:10 Dose: 25 mg Minoxidil (Loniten Tab*) 2.5 mg PO BID [facility] Last Admin: 01/31/20 20:06 Dose: 2.5 mg Nitroglycerin (Nitroglycerin Tab 0.4 Mg*) 0.4 mg SL Q5M PRN PRN Reason: ANGINA Ondansetron HCl (Zofran Inj*) 4 mg IV ONCE PRN PRN Reason: NAUSEA Pantoprazole Sodium (Protonix Tab*) 40 mg PO DAILY [facility] Last Admin: 01/31/20 08:10 Dose: 40 mg Sertraline HCl (Zoloft*) 50 mg PO QAM [facility] Last Admin: 01/31/20 08:11 Dose: 50 mg Terazosin HCl (Hytrin Cap*) 5 mg PO BEDTIME [facility] Last Admin: 01/31/20 20:07 Dose: 5 mg Objective Vital Signs: Temp Pulse Resp BP Pulse Ox 97.3 F 116 22 183/90 94 02/01/20 07:15 02/01/20 07:15 02/01/20 07:15 02/01/20 07:15 02/01/20 07:15 Oxygen Devices in Use Now: Nasal Cannula Appearance: chronically ill, mildly distressed Eyes: No Scleral Icterus, PERRLA Ears/Nose/Mouth/Throat: Mucous Membranes Moist Neck: Trachea Midline, No Thyroid Enlargement, Masses Respiratory: Symmetrical Chest Expansion and Respiratory Effort, - - rales right ase Cardiovascular: - - cabg scar noted, regular currently with 1/6 systolic murmur Abdominal: NL Sounds; No Tenderness; No Distention Extremities: No Edema - bounding PT pulses., - - right groin intact. no ecchymosis, pain or swelling Skin: No Rash or Ulcers Neurological: Alert and Oriented x 3, - Lines/Tubes/Other Access: Clean, Dry and Intact Peripheral IV, Clean, Dry and Intact Other Access - fistular RUE Laboratory Results: 02/01/20 05:19 02/01/20 05:19 INR (Anticoag Therapy) 1.14 (0.82-1.09) H 01/29/20 18:05 APTT 35.4 seconds (26.0-38.0) 01/30/20 04:30 Total Bilirubin 0.70 mg/dL (0.2-1.0) 01/29/20 06:01 AST 22 U/L (13-39) 01/29/20 06:01 ALT 27 U/L (7-52) 01/29/20 06:01 Alkaline Phosphatase 78 U/L (34-104) 01/29/20 06:01 CK-MB (CK-2) 3.6 ng/mL (0.6-6.3) 01/26/20 02:29 B-Natriuretic Peptide 947 pg/mL (<=100) H 01/26/20 02:29 Total Protein 5.6 g/dL (6.4-8.9) L 01/29/20 06:01 Albumin 3.5 g/dL (3.2-5.2) 01/29/20 06:01 Globulin 2.1 g/dL (2-4) 01/29/20 06:01 Albumin/Globulin Ratio 1.7 (1-3) 01/29/20 06:01 Triglycerides 170 mg/dL 01/26/20 02:29 Cholesterol 125 mg/dL 01/26/20 02:29 LDL Cholesterol 54 mg/dL 01/26/20 02:29 HDL Cholesterol 37.4 mg/dL 01/26/20 02:29 TSH 1.71 mcIU/mL (0.34-5.60) 01/26/20 09:40 01/26/20 01/26/20 01/26/20 02:29 05:30 08:35 Troponin I 0.76 H* 1.02 H* 2.01 H* 01/26/20 01/26/20 01/27/20 13:55 20:00 12:10 Troponin I 3.55 H* 3.33 H* 1.80 H* 01/30/20 01/31/20 01/31/20 04:30 18:56 22:44 Troponin I 1.30 H* 0.91 H* 0.95 H* 02/01/20 02:14 Troponin I 0.88 H* Diagnostic Imaging: Transthoracic Echocardiogram Study Date: 01/26/2020 Summary: - Left ventricle: The cavity size is at the upper limits of normal. Wall thickness is mildly to moderately increased. Systolic function is normal. The estimated ejection fraction is 55-60%. Wall motion is normal; there are no regional wall motion abnormalities. - Right ventricle: Systolic function is normal. - Left atrium: The atrium is severely dilated. - Atrial septum: A closure device is present. - Mitral valve: There is mild to moderate regurgitation. - Aortic valve: There is no evidence of stenosis. CXR Exam Date: 01/26/20 FINDINGS: LINES AND TUBES: None. CARDIOMEDIASTINAL SILHOUETTE: The cardiac silhouette is mildly enlarged. The cardiomediastinal silhouette is otherwise normal for portable technique. PLEURA: The costophrenic angles are sharp. No pleural abnormalities are noted. LUNG PARENCHYMA: There is prominence of the central pulmonary vasculature. ABDOMEN: The upper abdomen is clear. There is no subphrenic gas. BONES AND SOFT TISSUES: The patient is status post median sternotomy. IMPRESSION: MILD CARDIOMEGALY WITH PULMONARY VASCULAR CONGESTION. EKG Data: Telemetry: rate controlled atrial flutter overnight Assessment/Plan 1. NSTEMI - Recurrent angina s/p medical treatment - Now s/p culprit ramus/Lcx PCI 2 Atrial flutter - Rate controlled, currently asymptomatic, LVEF normal - Known asymptomatic sinus node dysfunction - Rhythm control approach in this situation is known to substantially increase the risk of requiring atrial pacing pacemaker which we are trying to avoid given his infection risk with dialysis. 3. ESRD on HD 4. Anemia 5. HTN 6. 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 - Currently on toprol 25 mg po daily in place of home tartrate 12.5 mg - Aspirin 325 mg x 1 now and brillinta 180 mg x 1 now - Cardiac catheterization today
[2020-02-01 09:38] LABS: Troponin I 0.82 ng/mL (<0.03)
--- NOTE | 2020-02-01 09:46 | PN ---
Cardiology Progress Note Date of Service: 02/01/[address] Hannon Lcx/ramus stents open Culprit is distal occluded RPL branch that likely occluded from competitive flow with revascularization Lcx that feeded collaterals to this vessel that had been previously mostly supplied by radial graft. PLan Continue regimen of plavix 75 mg po daily and eliquis 2.5 mg po bid (restart tonight) Needs HD and BP control Restart imdur 120 mg po bid (ordered)
--- NOTE | 2020-02-01 10:04 | PN ---
Subjective Date of Service: 02/01/20 Interval History: Pt c/o SOB and "not feeling well " this AM, DR. Beltre was seeing pt when he developed shoulder pain and EKG showed diffuse ST depression in lateral leads. Pt is being taken emergently to phlebotomist lab assistant now. Family History: Unchanged from Admission Social History: Unchanged from Admission Past Medical History: Unchanged from Admission Objective Active Medications: Acetaminophen (Tylenol Tab*) 650 mg PO Q6H PRN PRN Reason: PAIN-MILD/TEMP >/= 100.4 Last Admin: 02/01/20 06:09 Dose: 650 mg Al Hydrox/Mg Hydrox/Simethicone (Maalox Plus*) 30 ml PO Q6H PRN PRN Reason: INDIGESTION Apixaban (Eliquis*) 2.5 mg PO BID [facility] Atorvastatin Calcium (Lipitor*) 80 mg PO BEDTIME [facility] Last Admin: 01/31/20 20:07 Dose: 80 mg Buspirone HCl (Buspar Tab*) 10 mg PO BID [facility] Last Admin: 01/31/20 20:07 Dose: 10 mg Clopidogrel Bisulfate (Plavix Tab*) 75 mg PO DAILY [facility] Last Admin: 01/31/20 08:11 Dose: 75 mg Dextrose (D50w Syringe 50 Ml*) 12.5 gm IV PUSH .FOR FS < 60 - SS PRN PRN Reason: FS < 60 Finasteride (Proscar Tab*) 5 mg PO BEDTIME [facility] Last Admin: 01/31/20 20:07 Dose: 5 mg Furosemide (Lasix Tab*) 40 mg PO BID [facility] Last Admin: 01/31/20 20:08 Dose: 40 mg Insulin Human Lispro (Humalog*) 0 units [facility]; Protocol Last Admin: 01/31/20 19:20 Dose: Not Given Isosorbide Mononitrate (Imdur Er Tab*) 120 mg PO BID [facility] Lisinopril (Prinivil Tab*) 5 mg PO QAM [facility] Last Admin: 01/31/20 08:11 Dose: 5 mg Magnesium Oxide (Magox 400 Tab*) 400 mg PO QAM [facility] Last Admin: 01/31/20 08:17 Dose: 400 mg Metoprolol Succinate (Toprol Xl Tab*) 25 mg PO DAILY [facility] Last Admin: 01/31/20 08:10 Dose: 25 mg Minoxidil (Loniten Tab*) 2.5 mg PO BID [facility] Last Admin: 01/31/20 20:06 Dose: 2.5 mg Nitroglycerin (Nitroglycerin Tab 0.4 Mg*) 0.4 mg SL Q5M PRN PRN Reason: ANGINA Ondansetron HCl (Zofran Inj*) 4 mg IV ONCE PRN PRN Reason: NAUSEA Pantoprazole Sodium (Protonix Tab*) 40 mg PO DAILY [facility] Last Admin: 01/31/20 08:10 Dose: 40 mg Sertraline HCl (Zoloft*) 50 mg PO QAM [facility] Last Admin: 01/31/20 08:11 Dose: 50 mg Terazosin HCl (Hytrin Cap*) 5 mg PO BEDTIME [facility] Last Admin: 01/31/20 20:07 Dose: 5 mg Vital Signs - 8 hr 02/01/20 02/01/20 02/01/20 03:12 07:15 09:43 Temperature 98.3 F 97.3 F 98.6 F Pulse Rate 59 116 112 Respiratory 18 22 22 Rate Blood Pressure 145/69 183/90 151/85 (mmHg) O2 Sat by Pulse 94 94 93 Oximetry Oxygen Devices in Use Now: Nasal Cannula Appearance: 64 yo M in mild distress, appears uncomfortable, pale and diaphoretic, AAOx3 Eyes: No Scleral Icterus, PERRLA Ears/Nose/Mouth/Throat: NL Teeth, Lips, Gums, Mucous Membranes Moist Neck: NL Appearance and Movements; NL JVP Respiratory: Symmetrical Chest Expansion and Respiratory Effort, - - crackles at b/l lower lungs Cardiovascular: - - irregular Abdominal: NL Sounds; No Tenderness; No Distention, No Hepatosplenomegaly Lymphatic: No Cervical Adenopathy Extremities: No Edema, - - R arm fistula for HD Neurological: Alert and Oriented x 3, NL Muscle Strength and Tone Result Diagrams: 02/01/20 05:19 02/01/20 05:19 Additional Lab and Data: Laboratory Tests 01/29/20 01/29/20 01/29/20 06:01 06:01 07:31 APTT 72.0 H POC Glucose (mg/dL) 139 H Hemoglobin A1c 6.0 H 01/29/20 11:43 APTT POC Glucose (mg/dL) 110 H Hemoglobin A1c Microbiology and Other Data: FOBT not collected EKG Data: telemetry; a-flutter, V-rate 60 Assess/Plan/Problems-Billing Assessment: 64 yo man w/ ESRD, CAD, here with nonSTEMI, new atrial flutter - Patient Problems (1) NSTEMI (non-ST elevated myocardial infarction) Comment: - Recurrent angina s/p cath, now with acute EKG changes -to cath again now. -pt's angina demonstrated by r arm pain, - Now s/p culprit ramus/Lcx PCI-2 stents on 01/29/20 -cont Plavix, getting a dose of brilinta pre cath -unifocal PVC's noted, NSVT on 01/30/20 at 11 beats (2) HOWARD (obstructive sleep apnea) Comment: on at night tried to check overnight pulse ox to possibly qualify for at night at home, but pt refused (3) Anemia Comment: - Appears due to ESRD - nephrology to manage IV venofer, epogen (4) Atrial flutter with controlled response Comment: -Rate control is adequate, not pursuing rhythm correction -cont Eliquis 2.5 BID (5) ESRD (end stage renal disease) Comment: -on HD- MWF -planned for HD after cath today -still makes urine, has Joe in place (6) CVA (cerebral vascular accident) Comment: - h/o with very mild occasional residual expressive aphasia - On plavix for now and statins (7) Type II diabetes mellitus Comment: - Lispro SS with accuchecks ACHS (8) DVT prophylaxis Comment: - on Eliquis Status and Disposition: inpatient. Transfer to ICU post cath
[2020-02-01] MEDS: Clopidogrel TAB* 75 MG PO SCH (10:05)
[2020-02-01] MEDS: Furosemide TAB* 40 MG PO SCH ×2 (10:05→20:19)
[2020-02-01] MEDS: Metoprolol Succinate XL TAB* 25 MG PO SCH (10:06)
[2020-02-01] MEDS: busPIRone TAB* 10 MG PO SCH ×2 (10:06→20:19)
[2020-02-01] MEDS: Isosorbide Mononitrate ER TAB* 60 MG PO SCH ×2 (10:06→20:17)
[2020-02-01] MEDS: Pantoprazole TAB * 40 MG TAB PO SCH (10:06)
[2020-02-01] MEDS: Magnesium Oxide TAB* 400 MG PO SCH (10:06)
[2020-02-01] MEDS: Sertraline* 50 MG TAB PO SCH (10:06)
[2020-02-01] MEDS: Lisinopril TAB* 5 MG PO SCH (10:06)
[2020-02-01] MEDS: Apixaban* 2.5 MG TAB PO SCH (10:23)
[2020-02-01] MEDS: Insulin LISPRO* 1 UNITS UNIT SUBCUT SCH ×4 (10:23→20:52)
[2020-02-01 11:54] LABS: Troponin I 0.73 ng/mL (<0.03)
[2020-02-01] MEDS ORDERED: EPOETIN ALFA-EPBX * 3,000 UNIT/ML VIAL IV ONE (12:00)
[2020-02-01] MEDS ORDERED: EPOETIN ALFA-EPBX * 2,000 UNIT/ML VIAL IV ONE (12:00)
[2020-02-01] MEDS: MinoXIDil TAB* 2.5 MG TAB PO SCH ×2 (12:08→20:16)
--- NOTE | 2020-02-01 12:31 | PN ---
Progress Note - Progress Note Date of Service: 02/01/20 Note: Inpatient Acute Dialysis Note~ESRD Performed by Dr. Willi Cuenca, [facility] Nephrology 02/01/2020 I saw him today on HD for ESRD. HD routine MWF. Earlier today, he c/c of Rt shoulder pain, s/p diffuse ST depression in lateral leads, s/p recurrent Angina, s/p LHC today, s/p recent stent 01/28. Stents open. The culprit is a distal occluded lesion, hemodynamic no intervention, see cardiology notes. He was seen and examined on HD. HD Routine: MWF HD Duration: 3.5 Hr UF Goal: 1 L/Rx Vitals: BP: 140/95 HR: 70 Blood Flow: 400 cc/min Dialysate Flow: 600 cc/min Bath: K: 2K Ca: 2.5Ca Na: 138 Hco3: 32 Temp: 36 C Dialyzer: Revaclear 300 Access: Rt AVF. Excellent access. May need AVF angiogram if Rt Arm pain persists. Tolerates HD well. No Intradialytic Hypotension. I'll avoid destabilizing the BP.
--- NOTE | 2020-02-01 17:27 | CATH ---
cc: Dr. Benjy Caban; Dr. Lg Beltre* CARDIAC CATHETERIZATION REPORT: DATE OF PROCEDURE: 02/01/20 - ROOM #ICU-10 REASON FOR THE STUDY: Asked by key account representative, Dr. Lg Beltre, to perform emergent cardiac catheterization as the patient having chest and arm discomfort with abnormal EKG raising the question of possible thrombosis of recent stents placed in the proximal circumflex and first obtuse marginal branch as well as the mid obtuse marginal branch. PROCEDURE: Coronary arteriography, MARTINEZ graft arteriography, vein graft arteriography to the free pedicle radial artery graft to the right posterior descending artery of the right coronary artery, injection into the left femoral artery to assess for closure device placement, and placement of an Angio-Seal closure device in the left femoral artery. CONSENT: The patient was interviewed and examined on the floor of the hospital where the risks and benefits were explained. He understood them and wished to proceed. PRE-CARDIAC CATHETERIZATION LABORATORY RESULTS: Hemoglobin and hematocrit of 8.1 and 23 with platelet count of 116,000. BUN and creatinine of 65 and 7.0 ( the patient is on hemodialysis), sodium 131, potassium 4.4, chloride 98, bicarb 22. EQUIPMENT UTILIZED: 1. Left femoral artery sheath was a 6.5-British Merit Prelude sheath. 2. Diagnostic guidewire was a 260 length Rodrigues curved exchange guidewire. 3. Diagnostic coronary catheters included a 5-British multipurpose 2 catheter, a 5-British LUIS catheter, and a 6-British VL 3.5 curve guide catheter. 4. The closure device utilized was an Angio-Seal 6-British closure device. MEDICATIONS GIVEN: 1. The patient had received full dose aspirin 324 mg and 180 mg of Brilinta on the floor of the hospital before proceeding to the cardiovascular laboratory. 2. In the cardiovascular laboratory, he received Xylocaine 1% for local anesthesia. DESCRIPTION OF PROCEDURE: The patient was brought to the cardiovascular laboratory where a formal time-out was performed. He was prepped and draped in a sterile fashion. The left groin area was anesthetized with 1% lidocaine. The left femoral artery was cannulated with an anterior wall only stick and the sheath was placed. Coronary arteriography was performed utilizing the VL 3.5 curve 6-British catheter for the left coronary artery. The right coronary artery was already known to be totally occluded from prior cardiac catheterizations in the past. A multipurpose catheter was utilized to cannulate the vein graft to the free pedicle radial artery graft to the right posterior descending artery of the right coronary artery. A MARTINEZ graft catheter was utilized to cannulate the MARTINEZ graft to the left anterior descending artery. Injection was then made into the left femoral artery to assess eligibility to utilize a closure device. It was acceptable for this, and as such, a 6-British Angio-Seal closure device was deployed with good hemostasis. The patient tolerated the procedure well. The total amount of contrast utilized was 75 cc of Visipaque dye. The radiation exposure included 6.2 minutes of fluoro time. The air kerma radiation was 1392 mGy. The DAP radiation was 8845 microgray per meter squared. RESULTS: CORONARY ARTERIOGRAPHY: A. Left coronary artery: 1. Left main - the left main was widely patent. In the distal portion of the left main, the 2 prior stents were noted, 1 into the circumflex and 1 into the first obtuse marginal branch. 2. Left anterior descending artery totally occluded at its ostium. 3. Circumflex artery. It supplied a moderate size high first obtuse marginal branch/trifurcation marginal branch followed by a thin second obtuse marginal branch at a moderate size bifurcating third obtuse marginal branch and ending in a low-lying posterior LV branch. Collateral blood flow was noted to the distal right coronary artery posterior left ventricular branch, a small caliber vessel. The prior stents in both the high first obtuse marginal branch/ trifurcation marginal branch as well as the proximal circumflex both extending in a double-barreled effect back into the left main appeared to be widely patent with no evidence of significant stenosis or more importantly no haze to suggest significant thrombus accumulation. JAE 3 flow was noted down both vessels. B. Right coronary artery - known to be totally occluded from prior cardiac catheterizations. FREE PEDICLE RIGHT RADIAL ARTERY GRAFT TO POSTERIOR DESCENDING ARTERY OF THE RIGHT CORONARY ARTERY: Widely patent through both areas of prior stent placement with no significant obstruction, JAE 3 flow. In several views, the attachment point appeared to be stable with no evidence of significant compromise. The distal part of the vessel supplied 2 branches paralleling along the inferior surface, the more medial of which was unchanged with a 65% to 70% narrowing in that vessel. Of note, there was faint, at best, retrograde flow to the proximal portion of the posterior descending artery and trace filling into the [place] right coronary artery (of note, this was more robust on the prior catheterization done last week on the injections made prior to the intervention into the circumflex artery). MARTINEZ GRAFT TO LEFT ANTERIOR DESCENDING ARTERY: A widely patent MARTINEZ graft with anastomosis to the mid left anterior descending artery with the vessel being extremely small in caliber, less than 1.7 mm. After the point of attachment into the distal vessel, more proximally the vessel was open wider leading back to a more proximal diagonal branch. More proximal to that was a significant narrowing leading to the first septal camera person. There was no significant flow seen past the first septal camera person more proximally. There appeared to be some collateral blood flow seen faintly to the proximal portion of the posterior descending artery of the right coronary artery through septal perforators. The vessel was poorly visualized at best. OVERALL ASSESSMENT: Patent areas of prior stenting to the proximal circumflex back into the left main and the high first obtuse marginal branch/trifurcation marginal branch back in towards the left main in a double-barreled technique. No evidence of significant thrombus present in either vessel with JAE 3 flow. The mid stent in the circumflex appears to be patent as well. Significant disease is noted within the LAD past the point of insertion as well as the new finding of poor blood flow in retrograde fashion in the proximal portion of the posterior descending artery faintly at best filling the the proximal segment of the right posterior descending artery. It appears that most of the blood flow to the distal right coronary artery is currently coming from the collateral from the circumflex artery now that the proximal obstructions have been relieved by prior stent placement. Clearly, given the size of this vessel. I would not attempt to deliver a wire in a retrograde fashion to supply just the posterior left ventricular branch, especially since there is what appears to be a collateral already established to that vessel. We would maximize medical management to this area at best. We will cycle troponins to see whether or not there was an increase as one would anticipate if this was truly an acute event . Given that there is no thrombosis present at the circumflex proximal or mid stent or the stent in the trifurcation marginal branch, we will discuss the issue of continuing clopidogrel with the Eliquis versus switching to Brilinta. Apparently, the patient did not tolerate Brilinta well at all when he was on it last time due to significant side effects. [id number]/[facility] #: [id number] KIKI
[2020-02-01] MEDS: Terazosin CAP* 5 MG PO SCH (20:17)
[2020-02-01] MEDS: Atorvastatin* 80 MG TAB PO SCH (20:19)
[2020-02-01] MEDS: Finasteride TAB* 5 MG PO SCH (20:53)
[2020-02-01] MEDS ORDERED: Apixaban* 2.5 MG TAB PO SCH (21:00)
[2020-02-01 21:28] LABS: Troponin I 4.92 ng/mL (<0.03)
[2020-02-02] MEDS ORDERED: Melatonin 3 MG TAB PO ONE (01:00)
[2020-02-02] MEDS ORDERED: Aspirin 81 mg CHEW TAB* 81 MG TAB.CHEW PO ONE (02:00)
[2020-02-02] MEDS ORDERED: Ticagrelor* 90 MG TAB PO ONE (02:00)
[2020-02-02] MEDS: Apixaban* 2.5 MG TAB PO SCH ×2 (05:04→20:52)
[2020-02-02 05:52] LABS: Albumin 3.3 g/dL (3.2-5.2); Albumin/Globulin Ratio 1.5 (1-3); BUN/Creatinine Ratio 8.5 (8-20); Calcium 7.9 mg/dL (8.6-10.3); EGFR African American 13.3 (>60); Globulin 2.2 g/dL (2-4); Magnesium 1.9 mg/dL (1.9-2.7); Potassium 3.8 mmol/L (3.5-5.0); Total Bilirubin 1.4 mg/dL (0.2-1.0); Total Protein 5.5 g/dL (6.4-8.9)
[2020-02-02 06:10] LABS: Hematocrit 20 % (42-52); Hemoglobin 7.2 g/dL (14.0-18.0); Mean Corpuscular HGB Conc 35 g/dL (31-36); Mean Corpuscular Hemoglobin 32 pg (27-31); Mean Corpuscular Volume 91 fL (80-94); Red Blood Count 2.26 10^6 /uL (4.18-5.48); Red Cell Distribution Width 14 % (10-15); White Blood Count 7.4 10^3/uL (3.5-10.8)
[2020-02-02 07:08] LABS: Platelet Count Platelets clumped. 10^3/uL (150-450)
[2020-02-02 07:58] LABS: Troponin I 4.9 ng/mL (<0.03)
[2020-02-02] MEDS: Insulin LISPRO* 1 UNITS UNIT SUBCUT SCH ×5 (07:58→21:00)
[2020-02-02] MEDS: Pantoprazole TAB * 40 MG TAB PO SCH (08:32)
[2020-02-02] MEDS: Isosorbide Mononitrate ER TAB* 60 MG PO SCH ×2 (08:33→20:52)
[2020-02-02] MEDS: Magnesium Oxide TAB* 400 MG PO SCH (08:33)
[2020-02-02] MEDS: Sertraline* 50 MG TAB PO SCH (08:33)
[2020-02-02] MEDS: Furosemide TAB* 40 MG PO SCH ×2 (08:33→20:52)
[2020-02-02] MEDS: Lisinopril TAB* 5 MG PO SCH (08:33)
[2020-02-02] MEDS: Metoprolol Succinate XL TAB* 25 MG PO SCH (08:33)
[2020-02-02] MEDS: Clopidogrel TAB* 75 MG PO SCH (08:33)
[2020-02-02] MEDS: busPIRone TAB* 10 MG PO SCH ×2 (08:33→20:52)
[2020-02-02] MEDS: MinoXIDil TAB* 2.5 MG TAB PO SCH ×2 (08:33→21:03)
--- NOTE | 2020-02-02 09:15 | PN ---
<ZhouAmy - Last Filed: 02/02/20 09:10> Subjective Date of Service: 02/02/20 - NSTEMI, AFL, ESRD, Anemia Interval History: f/u aflutter, NSTEMI s/p pci Patient reports mild shortness of breath, no c/o chest pain, palpitations, sensation of heart racing or dizziness. States he had a BM yesterday denies melena, hematochezia. Denies bloody emesis. H+H continue to trend down. Denies left groin access site pain/abdominal pain. Medications Active Medications: Acetaminophen (Tylenol Tab*) 650 mg PO Q6H PRN PRN Reason: PAIN-MILD/TEMP >/= 100.4 Last Admin: 02/01/20 20:18 Dose: 650 mg Al Hydrox/Mg Hydrox/Simethicone (Maalox Plus*) 30 ml PO Q6H PRN PRN Reason: INDIGESTION Apixaban (Eliquis*) 2.5 mg PO BID [facility] Last Admin: 02/02/20 05:04 Dose: 2.5 mg Atorvastatin Calcium (Lipitor*) 80 mg PO BEDTIME [facility] Last Admin: 02/01/20 20:19 Dose: 80 mg Buspirone HCl (Buspar Tab*) 10 mg PO BID [facility] Last Admin: 02/02/20 08:33 Dose: 10 mg Clopidogrel Bisulfate (Plavix Tab*) 75 mg PO DAILY [facility] Last Admin: 02/02/20 08:33 Dose: 75 mg Dextrose (D50w Syringe 50 Ml*) 12.5 gm IV PUSH .FOR FS < 60 - SS PRN PRN Reason: FS < 60 Finasteride (Proscar Tab*) 5 mg PO BEDTIME [facility] Last Admin: 02/01/20 20:53 Dose: 5 mg Furosemide (Lasix Tab*) 40 mg PO BID [facility] Last Admin: 02/02/20 08:33 Dose: 40 mg Insulin Human Lispro (Humalog*) 0 units SUBCUT [facility]; Protocol Last Admin: 02/02/20 07:58 Dose: Not Given Isosorbide Mononitrate (Imdur Er Tab*) 120 mg PO BID [facility] Last Admin: 02/02/20 08:33 Dose: 120 mg Lisinopril (Prinivil Tab*) 5 mg PO QAM [facility] Last Admin: 02/02/20 08:33 Dose: 5 mg Magnesium Oxide (Magox 400 Tab*) 400 mg PO QAM [facility] Last Admin: 02/02/20 08:33 Dose: 400 mg Metoprolol Succinate (Toprol Xl Tab*) 25 mg PO DAILY [facility] Last Admin: 02/02/20 08:33 Dose: 25 mg Minoxidil (Loniten Tab*) 2.5 mg PO BID [facility] Last Admin: 02/02/20 08:33 Dose: 2.5 mg Nitroglycerin (Nitroglycerin Tab 0.4 Mg*) 0.4 mg SL Q5M PRN PRN Reason: ANGINA Last Admin: 02/01/20 10:19 Dose: 0.4 mg Ondansetron HCl (Zofran Inj*) 4 mg IV ONCE PRN PRN Reason: NAUSEA Pantoprazole Sodium (Protonix Tab*) 40 mg PO DAILY [facility] Last Admin: 02/02/20 08:32 Dose: 40 mg Sertraline HCl (Zoloft*) 50 mg PO QAM [facility] Last Admin: 02/02/20 08:33 Dose: 50 mg Terazosin HCl (Hytrin Cap*) 5 mg PO BEDTIME [facility] Last Admin: 02/01/20 20:17 Dose: 5 mg Objective Vital Signs: Temp Pulse Resp BP Pulse Ox 98.6 F 87 22 121/88 95 02/02/20 08:00 02/02/20 08:00 02/02/20 08:00 02/02/20 08:00 02/02/20 08:00 Oxygen Devices in Use Now: Nasal Cannula Appearance: chronically ill, mildly distressed Eyes: No Scleral Icterus, PERRLA Ears/Nose/Mouth/Throat: Mucous Membranes Moist Neck: Trachea Midline, No Thyroid Enlargement, Masses Respiratory: Symmetrical Chest Expansion and Respiratory Effort, - - rales right ase Cardiovascular: - - cabg scar noted, regular currently with 1/6 systolic murmur Abdominal: NL Sounds; No Tenderness; No Distention Extremities: No Edema - bounding PT pulses., - - right groin intact. no ecchymosis, pain or swelling. Left groin intact, 3+ left femoral pulse. No thrill, no hematoma. Skin: No Rash or Ulcers Neurological: Alert and Oriented x 3, - Lines/Tubes/Other Access: Clean, Dry and Intact Peripheral IV, Clean, Dry and Intact Other Access - fistular RUE Laboratory Results: 02/02/20 05:10 02/02/20 05:10 INR (Anticoag Therapy) 1.14 (0.82-1.09) H 01/29/20 18:05 APTT 35.4 seconds (26.0-38.0) 01/30/20 04:30 Total Bilirubin 1.40 mg/dL (0.2-1.0) H 02/02/20 05:10 AST 27 U/L (13-39) 02/02/20 05:10 ALT 45 U/L (7-52) 02/02/20 05:10 Alkaline Phosphatase 118 U/L (34-104) H 02/02/20 05:10 CK-MB (CK-2) 3.6 ng/mL (0.6-6.3) 01/26/20 02:29 B-Natriuretic Peptide 947 pg/mL (<=100) H 01/26/20 02:29 Total Protein 5.5 g/dL (6.4-8.9) L 02/02/20 05:10 Albumin 3.3 g/dL (3.2-5.2) 02/02/20 05:10 Globulin 2.2 g/dL (2-4) 02/02/20 05:10 Albumin/Globulin Ratio 1.5 (1-3) 02/02/20 05:10 Triglycerides 170 mg/dL 01/26/20 02:29 Cholesterol 125 mg/dL 01/26/20 02:29 LDL Cholesterol 54 mg/dL 01/26/20 02:29 HDL Cholesterol 37.4 mg/dL 01/26/20 02:29 TSH 1.71 mcIU/mL (0.34-5.60) 01/26/20 09:40 01/26/20 01/26/20 01/26/20 02:29 05:30 08:35 Troponin I 0.76 H* 1.02 H* 2.01 H* 01/26/20 01/26/20 01/27/20 13:55 20:00 12:10 Troponin I 3.55 H* 3.33 H* 1.80 H* 01/30/20 01/31/20 01/31/20 04:30 18:56 22:44 Troponin I 1.30 H* 0.91 H* 0.95 H* 02/01/20 02/01/20 02/01/20 02:14 05:19 11:25 Troponin I 0.88 H* 0.82 H* 0.73 H* 02/01/20 02/02/20 20:40 05:10 Troponin I 4.92 H* 4.90 H* Laboratory Results - last 24 hr 02/01/20 02/01/20 02/01/20 05:19 11:25 11:41 WBC RBC Hgb Hct MCV MCH MCHC RDW Plt Count MPV Sodium 131 L Potassium 4.4 Chloride 98 L Carbon Dioxide 22 Anion Gap 11 BUN 65 H Creatinine 7.00 H Est GFR ( Amer) 9.6 Est GFR (Non-Af Amer) 7.9 BUN/Creatinine Ratio 9.3 Glucose 108 H POC Glucose (mg/dL) 147 H Calcium 8.6 Magnesium Total Bilirubin AST ALT Alkaline Phosphatase Troponin I 0.82 H* 0.73 H* Total Protein Albumin Globulin Albumin/Globulin Ratio Blood Type Antibody Screen Crossmatch 02/01/20 02/01/20 02/01/20 16:41 20:40 20:48 WBC RBC Hgb Hct MCV MCH MCHC RDW Plt Count MPV Sodium Potassium Chloride Carbon Dioxide Anion Gap BUN Creatinine Est GFR ( Amer) Est GFR (Non-Af Amer) BUN/Creatinine Ratio Glucose POC Glucose (mg/dL) 189 H 181 H Calcium Magnesium Total Bilirubin AST ALT Alkaline Phosphatase Troponin I 4.92 H* Total Protein Albumin Globulin Albumin/Globulin Ratio Blood Type Antibody Screen Crossmatch 02/02/20 02/02/20 02/02/20 05:10 05:10 05:10 WBC 7.4 RBC 2.26 L Hgb 7.2 L Hct 20 L MCV 91 MCH 32 H MCHC 35 RDW 14 Plt Count Platelets clumped. H MPV Not Reportable Sodium 132 L Potassium 3.8 Chloride 97 L Carbon Dioxide 25 Anion Gap 10 BUN 45 H Creatinine 5.28 H Est GFR ( Amer) 13.3 Est GFR (Non-Af Amer) 11.0 BUN/Creatinine Ratio 8.5 Glucose 122 H POC Glucose (mg/dL) Calcium 7.9 L Magnesium 1.9 Total Bilirubin 1.40 H AST 27 ALT 45 Alkaline Phosphatase 118 H Troponin I 4.90 H* Total Protein 5.5 L Albumin 3.3 Globulin 2.2 Albumin/Globulin Ratio 1.5 Blood Type B Positive Antibody Screen Negative Crossmatch See Detail 02/02/20 07:48 WBC RBC Hgb Hct MCV MCH MCHC RDW Plt Count MPV Sodium Potassium Chloride Carbon Dioxide Anion Gap BUN Creatinine Est GFR ( Amer) Est GFR (Non-Af Amer) BUN/Creatinine Ratio Glucose POC Glucose (mg/dL) 147 H Calcium Magnesium Total Bilirubin AST ALT Alkaline Phosphatase Troponin I Total Protein Albumin Globulin Albumin/Globulin Ratio Blood Type Antibody Screen Crossmatch Diagnostic Imaging: Transthoracic Echocardiogram Study Date: 01/26/2020 Summary: - Left ventricle: The cavity size is at the upper limits of normal. Wall thickness is mildly to moderately increased. Systolic function is normal. The estimated ejection fraction is 55-60%. Wall motion is normal; there are no regional wall motion abnormalities. - Right ventricle: Systolic function is normal. - Left atrium: The atrium is severely dilated. - Atrial septum: A closure device is present. - Mitral valve: There is mild to moderate regurgitation. - Aortic valve: There is no evidence of stenosis. CXR Exam Date: 01/26/20 FINDINGS: LINES AND TUBES: None. CARDIOMEDIASTINAL SILHOUETTE: The cardiac silhouette is mildly enlarged. The cardiomediastinal silhouette is otherwise normal for portable technique. PLEURA: The costophrenic angles are sharp. No pleural abnormalities are noted. LUNG PARENCHYMA: There is prominence of the central pulmonary vasculature. ABDOMEN: The upper abdomen is clear. There is no subphrenic gas. BONES AND SOFT TISSUES: The patient is status post median sternotomy. IMPRESSION: MILD CARDIOMEGALY WITH PULMONARY VASCULAR CONGESTION. EKG Data: Telemetry: rate controlled atrial flutter overnight, No VT occassional PVCs ECG 02/02/2020; AFL rate [address] depression. Assessment/Plan 1. NSTEMI - Recurrent angina s/p medical treatment - Now s/p culprit ramus/Lcx PCI. relook [facility] 02/03/2020 medical therapy recommended no evidence of instent thrombosis. On Plavix in combination with Eliquis. -Hgb continues to trend down ( 7.2) recommend transfusing to a Hgb of 8. will add on iron studies given h/o ESRD to optimize medical management. Occult stool to be obtained. No identifiable source of bleeding at this time. -Left groin access site intact, no thrill, no hematoma. Denies abdominal pain. -Will trend Isoenzymes x1, plateaued this morning. Denies chest pain/right shoulder pain( anginal equivalent) - in the future may need testing to r/o Plavix non responder. (P2Y12) 2 Atrial flutter - Rate controlled, currently asymptomatic, LVEF normal - Known asymptomatic sinus node dysfunction - Rhythm control approach in this situation is known to substantially increase the risk of requiring atrial pacing pacemaker which we are trying to avoid given his infection risk with dialysis. 3. ESRD on HD 4. Anemia- refer to above #1. 5. HTN 6. 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 Attending: Micheal Salvador <Aj Hannon - Last Filed: 02/02/20 13:10> Medications Active Medications: Acetaminophen (Tylenol Tab*) 650 mg PO Q6H PRN PRN Reason: PAIN-MILD/TEMP >/= 100.4 Last Admin: 02/02/20 10:47 Dose: 650 mg Al Hydrox/Mg Hydrox/Simethicone (Maalox Plus*) 30 ml PO Q6H PRN PRN Reason: INDIGESTION Apixaban (Eliquis*) 2.5 mg PO BID [facility] Last Admin: 02/02/20 05:04 Dose: 2.5 mg Atorvastatin Calcium (Lipitor*) 80 mg PO BEDTIME [facility] Last Admin: 02/01/20 20:19 Dose: 80 mg Buspirone HCl (Buspar Tab*) 10 mg PO BID [facility] Last Admin: 02/02/20 08:33 Dose: 10 mg Clopidogrel Bisulfate (Plavix Tab*) 75 mg PO DAILY [facility] Last Admin: 02/02/20 08:33 Dose: 75 mg Dextrose (D50w Syringe 50 Ml*) 12.5 gm IV PUSH .FOR FS < 60 - SS PRN PRN Reason: FS < 60 Finasteride (Proscar Tab*) 5 mg PO BEDTIME [facility] Last Admin: 02/01/20 20:53 Dose: 5 mg Furosemide (Lasix Tab*) 40 mg PO BID [facility] Last Admin: 02/02/20 08:33 Dose: 40 mg Insulin Human Lispro (Humalog*) 0 units SUBCUT [facility]; Protocol Last Admin: 03/10/20 11:56 Dose: 1 units Isosorbide Mononitrate (Imdur Er Tab*) 120 mg PO BID [facility] Last Admin: 02/02/20 08:33 Dose: 120 mg Lisinopril (Prinivil Tab*) 5 mg PO QAM [facility] Last Admin: 02/02/20 08:33 Dose: 5 mg Magnesium Oxide (Magox 400 Tab*) 400 mg PO QAM [facility] Last Admin: 02/02/20 08:33 Dose: 400 mg Metoprolol Succinate (Toprol Xl Tab*) 25 mg PO DAILY [facility] Last Admin: 02/02/20 08:33 Dose: 25 mg Minoxidil (Loniten Tab*) 2.5 mg PO BID [facility] Last Admin: 02/02/20 08:33 Dose: 2.5 mg Nitroglycerin (Nitroglycerin Tab 0.4 Mg*) 0.4 mg SL Q5M PRN PRN Reason: ANGINA Last Admin: 02/01/20 10:19 Dose: 0.4 mg Ondansetron HCl (Zofran Inj*) 4 mg IV ONCE PRN PRN Reason: NAUSEA Pantoprazole Sodium (Protonix Tab*) 40 mg PO DAILY [facility] Last Admin: 02/02/20 08:32 Dose: 40 mg Sertraline HCl (Zoloft*) 50 mg PO QAM [facility] Last Admin: 02/02/20 08:33 Dose: 50 mg Terazosin HCl (Hytrin Cap*) 5 mg PO BEDTIME [facility] Last Admin: 02/01/20 20:17 Dose: 5 mg Objective Vital Signs: Temp Pulse Resp BP Pulse Ox 99.1 F 61 21 116/62 98 02/02/20 12:00 02/02/20 12:00 02/02/20 12:00 02/02/20 12:00 02/02/20 12:00 Laboratory Results: 02/02/20 05:10 02/02/20 05:10 INR (Anticoag Therapy) 1.14 (0.82-1.09) H 01/29/20 18:05 APTT 35.4 seconds (26.0-38.0) 01/30/20 04:30 Total Bilirubin 1.40 mg/dL (0.2-1.0) H 02/02/20 05:10 AST 27 U/L (13-39) 02/02/20 05:10 ALT 45 U/L (7-52) 02/02/20 05:10 Alkaline Phosphatase 118 U/L (34-104) H 02/02/20 05:10 CK-MB (CK-2) 3.6 ng/mL (0.6-6.3) 01/26/20 02:29 B-Natriuretic Peptide 947 pg/mL (<=100) H 01/26/20 02:29 Total Protein 5.5 g/dL (6.4-8.9) L 02/02/20 05:10 Albumin 3.3 g/dL (3.2-5.2) 02/02/20 05:10 Globulin 2.2 g/dL (2-4) 02/02/20 05:10 Albumin/Globulin Ratio 1.5 (1-3) 02/02/20 05:10 Triglycerides 170 mg/dL 01/26/20 02:29 Cholesterol 125 mg/dL 01/26/20 02:29 LDL Cholesterol 54 mg/dL 01/26/20 02:29 HDL Cholesterol 37.4 mg/dL 01/26/20 02:29 TSH 1.71 mcIU/mL (0.34-5.60) 01/26/20 09:40 01/26/20 01/26/20 01/26/20 02:29 05:30 08:35 Troponin I 0.76 H* 1.02 H* 2.01 H* 01/26/20 01/26/20 01/27/20 13:55 20:00 12:10 Troponin I 3.55 H* 3.33 H* 1.80 H* 01/30/20 01/31/20 01/31/20 04:30 18:56 22:44 Troponin I 1.30 H* 0.91 H* 0.95 H* 02/01/20 02/01/20 02/01/20 02:14 05:19 11:25 Troponin I 0.88 H* 0.82 H* 0.73 H* 02/01/20 02/02/20 02/02/20 20:40 05:10 09:33 Troponin I 4.92 H* 4.90 H* 4.50 H* Assessment/Plan Points of Discussion: Patient seen and examined. Troponins elevated, but echo reports no signficant wall motion abnormalities. H & H low. Agree with my nurse practioner's(Amy Epperson) assessment.
[2020-02-02 09:43] LABS: Platelet Count, Citrated 119 10^3/ul (150-450)
[2020-02-02 10:04] LABS: Total Iron Binding Capacity 196 mcg/dL (250-450); Transferrin 140 mg/dL (203-362)
[2020-02-02 10:06] LABS: % Iron Saturation 10 % (15-55); Iron < 20 ug/dL (50-212)
[2020-02-02 10:25] LABS: Ferritin 706.6 ng/mL (24-336)
[2020-02-02] MEDS: Acetaminophen TAB* 325 MG PO PRN (10:47)
--- NOTE | 2020-02-02 12:00 | ECHO ---
*[facility]* [place] [address] Fax #: [phone] Transthoracic Echocardiogram Patient: Siva Watson : 1955 Study Date: 02/02/2020 Age: 64 Gender: M HR: 70 bpm Height: 72 in /182.9 cm BSA: 2.26 m^2 Weight: 229.5 lb /104.3 kg BMI: 31.2 kg/m^2 *Institutional Research Director: * Annia Rodríguez RD *Referring Physician: * Aj Hannon MD *Reading Physician: * Micheal Salvador MD Indications: Myocardial Infarction (new). History: Coronary artery disease. Repaired patent foramen ovale. Functional status: Renal failure. Risk factors: Hypertension. Dyslipidemia. Labs, prior tests, procedures, and surgery: Catheterization. There was a stenosis which was treated with a stent. Coronary artery bypass grafting. Conclusions Summary: - Left ventricle: Systolic function is normal. The estimated ejection fraction is 55-60%. Wall motion is normal; there are no regional wall motion abnormalities. - Right ventricle: Systolic function is normal. Systolic pressure is moderately increased. - Mitral valve: There is mild to moderate regurgitation. - Aortic valve: There is no evidence of stenosis. - Tricuspid valve: There is moderate regurgitation. - Pulmonary arteries: Systolic pressure is moderately increased. - Compared to study of 01/26/2020, there is little change. Study data: Transthoracic echocardiogram. Procedure: Transthoracic echocardiography was performed. Image quality was fair. Complete 2D, spectral Doppler, and color flow Doppler. Location: ICU Patient status: Inpatient. Patient room number: ICU-10. Rhythm: Atrial fibrillation. Findings Left ventricle: The cavity size is normal. Wall thickness is moderately increased. Systolic function is normal. The estimated ejection fraction is 55-60%. Wall motion is normal; there are no regional wall motion abnormalities. Left ventricular diastolic function parameters are indeterminate. Right ventricle: The cavity size is moderately dilated. Systolic function is normal. Systolic pressure is moderately increased. Left atrium: The atrium is severely dilated. Right atrium: The atrium is moderately dilated. Atrial septum: A closure device is present. Mitral valve: The leaflets are mildly thickened. There is no evidence of stenosis. There is mild to moderate regurgitation. Aortic valve: The valve is trileaflet. The leaflets are mildly thickened. There is no evidence of stenosis. There is trace regurgitation. Tricuspid valve: The leaflets are normal thickness. There is no evidence of stenosis. There is moderate regurgitation. Pulmonic valve: The leaflets are normal thickness. There is no evidence of stenosis. There is trace regurgitation. Aorta: Aortic root: The aortic root is mildly dilated. Ascending aorta: The ascending aorta is mildly dilated. Aortic arch: The aortic arch is appears normal. Pericardium: There is no significant pericardial effusion. Pulmonary arteries: The main pulmonary artery is normal-sized. Systolic pressure is moderately increased. Systemic veins: Inferior vena cava: The vessel is dilated. There is (< 50%) respiratory change in the IVC dimension. Measurements Left ventricle Value Ref Aortic valve Value Ref FLAKITO, LAX 5.3 cm 4.2 - 5.8 Zurdo diam, ED 2.4 cm ----- ESD, LAX 3.9 cm 2.5 - 4.0 Peak v, S 1.39 m/sec ----- FS, LAX 26 % 25 - 43 VTI, S 22.3 cm ----- PW, ED, LAX (H) 1.4 cm 0.6 - 1.0 Mean grad, S 3.0 mm Hg ----- FS 26 % 25 - 43 Peak grad, S 8.0 mm Hg ----- Mid-wall FS 11 % LVOT/AV, VTI ratio 0.85 ----- PW, ED (H) 1.4 cm 0.6 - 1.0 E', lat zurdo, TDI 13.7 cm/sec >=10.0 Mitral valve Value Ref E/e', lat zurdo, 8 Peak E 1.09 m/sec ----- TDI Decel time 210 ms ----- E', med zurdo, TDI (L) 6.9 cm/sec >=7.0 Peak grad, D 4.8 mm Hg --- -- E/e', med zurdo, 16 TDI Pulmonic valve Value Ref E', avg, TDI 10.3 cm/sec Peak v, S 0.96 m/sec ----- E/e', avg, TDI 11 <=14 Peak grad, S 4.0 mm Hg --- -- LVOT Value Ref Tricuspid valve Value Ref Peak marlene, S 1.07 m/sec TR peak v (H) 3 m/sec <=2.8 VTI, S 19.0 cm Peak RV-RA grad, S 36 mm Hg ----- Peak grad, S 5 mm Hg Mean grad, S 2 mm Hg Aortic root Value Ref Root diam 3.6 cm <4.3 Ventricular septum Value Ref IVS, ED (H) 1.5 cm 0.6 - 1.0 Ascending aorta Value Ref AAo AP diam, S 3.8 cm ----- Right ventricle Value Ref FLAKITO, LAX 4.1 cm Aortic arch Value Ref FLAKITO minor ax, A4C (H) 4.4 cm 1.9 - 3.5 Arch diam 2.2 cm ----- mid Pressure, S 51 mm Hg Decending aorta Value Ref Wilfrid peak marlene 0.83 m/sec ----- Left atrium Value Ref AP dim, ES (H) 4.60 cm 3.00 - Pulmonary artery Value Ref 4.00 Pressure, S 47.0 mm Hg ----- ML dim, A4C 5.7 cm SI dim, A4C 6.7 cm Inferior vena cava Value Ref Vol/bsa, ES, 1-p (H) 58 ml/m^2 12 - 37 Diam 3.3 cm ----- A4C Vol/bsa, ES, A/L (H) 63 ml/m^2 16 - 34 Right atrium Value Ref SI dim, ES (H) 6.1 cm 3.4 - 5.3 ML dim, ES, A4C (H) 5.0 cm 2.6 - 4.4 Estimated RAP 15 mm Hg Legend: (L) and (H) sergio values outside specified reference range. Prepared and electronically signed by Micheal Salvador MD 02/02/2020 11:59
--- NOTE | 2020-02-02 16:55 | PN ---
<Radha Greene - Last Filed: 02/02/20 16:34> Progress Note - Progress Note Date of Service: 02/02/20 Note: Progress Note -- Critical Care 24 hour events/significant events: - Hgb has trended down to 7.2. 2UPRBC ordered - Patient states he is slightly short of breath. Otherwise, he offers no complaints ROS: negative except for pertinent positives mentioned above Tele: aflutter Vitals: Vital Signs 02/01/20 02/01/20 02/01/20 16:45 17:00 17:15 Temperature Pulse Rate 93 94 85 Respiratory 30 29 29 Rate Blood Pressure 156/91 150/84 157/91 (mmHg) O2 Sat by Pulse 92 94 96 Oximetry 02/01/20 02/01/20 02/01/20 17:30 17:38 17:45 Temperature Pulse Rate 90 91 Respiratory 28 18 28 Rate Blood Pressure 155/83 157/95 (mmHg) O2 Sat by Pulse 96 93 Oximetry 02/01/20 02/01/20 02/01/20 18:00 18:16 18:30 Temperature Pulse Rate 97 99 76 Respiratory 27 23 35 Rate Blood Pressure 152/91 148/88 148/73 (mmHg) O2 Sat by Pulse 96 97 97 Oximetry 02/01/20 02/01/20 02/01/20 18:45 19:00 19:15 Temperature Pulse Rate 78 77 80 Respiratory 34 27 30 Rate Blood Pressure 151/80 139/71 149/72 (mmHg) O2 Sat by Pulse 94 95 97 Oximetry 02/01/20 02/01/20 02/01/20 19:30 19:45 20:00 Temperature 101.5 F Pulse Rate 76 77 77 Respiratory 29 36 37 Rate Blood Pressure 140/74 148/67 153/71 (mmHg) O2 Sat by Pulse 96 97 97 Oximetry 02/01/20 02/01/20 02/01/20 20:15 20:18 20:30 Temperature Pulse Rate 78 87 76 Respiratory 27 36 33 Rate Blood Pressure 142/73 157/68 137/74 (mmHg) O2 Sat by Pulse 96 96 95 Oximetry 02/01/20 02/01/20 02/01/20 20:45 21:00 21:15 Temperature Pulse Rate 88 84 91 Respiratory 23 34 20 Rate Blood Pressure 132/72 129/64 126/63 (mmHg) O2 Sat by Pulse 91 94 92 Oximetry 02/01/20 02/01/20 02/01/20 21:30 21:45 22:00 Temperature Pulse Rate 105 85 83 Respiratory 29 24 27 Rate Blood Pressure 134/70 117/65 134/64 (mmHg) O2 Sat by Pulse 93 95 94 Oximetry 02/01/20 02/01/20 02/01/20 22:03 23:00 23:44 Temperature 100.5 F 99.6 F Pulse Rate 87 Respiratory 25 Rate Blood Pressure 127/86 (mmHg) O2 Sat by Pulse 95 Oximetry 02/02/20 02/02/20 02/02/20 00:00 00:22 01:00 Temperature Pulse Rate 92 87 Respiratory 24 22 24 Rate Blood Pressure 128/82 130/78 (mmHg) O2 Sat by Pulse 89 94 Oximetry 02/02/20 02/02/20 02/02/20 01:59 02:00 03:00 Temperature Pulse Rate 91 92 Respiratory 22 24 23 Rate Blood Pressure 126/78 133/73 (mmHg) O2 Sat by Pulse 93 91 Oximetry 02/02/20 02/02/20 02/02/20 04:00 04:59 05:00 Temperature 99.1 F Pulse Rate 94 93 Respiratory 37 23 23 Rate Blood Pressure 130/66 129/71 (mmHg) O2 Sat by Pulse 90 88 Oximetry 02/02/20 02/02/20 02/02/20 06:00 07:00 08:00 Temperature 98.6 F Pulse Rate 88 90 90 Respiratory 20 22 24 Rate Blood Pressure 113/78 128/70 121/88 (mmHg) O2 Sat by Pulse 92 94 93 Oximetry 02/02/20 02/02/20 02/02/20 09:00 10:00 10:01 Temperature Pulse Rate 99 Respiratory 24 24 28 Rate Blood Pressure 118/70 111/75 (mmHg) O2 Sat by Pulse 93 Oximetry 02/02/20 02/02/20 02/02/20 11:00 11:03 11:20 Temperature Pulse Rate 62 68 58 Respiratory 24 23 22 Rate Blood Pressure 106/55 108/57 118/60 (mmHg) O2 Sat by Pulse 94 94 98 Oximetry 02/02/20 02/02/20 02/02/20 12:00 13:00 13:19 Temperature 99.1 F Pulse Rate 61 59 59 Respiratory 21 20 23 Rate Blood Pressure 116/62 105/62 97/55 (mmHg) O2 Sat by Pulse 98 96 94 Oximetry 02/02/20 02/02/20 02/02/20 13:20 14:00 14:20 Temperature Pulse Rate 59 87 64 Respiratory 23 22 25 Rate Blood Pressure 99/60 117/57 102/70 (mmHg) O2 Sat by Pulse 96 97 96 Oximetry 02/02/20 02/02/20 02/02/20 14:40 15:00 16:00 Temperature 98.4 F Pulse Rate 56 62 64 Respiratory 21 19 24 Rate Blood Pressure 116/64 111/61 124/68 (mmHg) O2 Sat by Pulse 97 96 95 Oximetry Intake and Output Last 24 Hours 01/31/20 02/01/20 02/02/20 02/03/20 06:59 06:59 06:59 06:59 Intake Total 2520 1950 985 Output Total 1000 1375 900 Balance 1520 575 85 Weight 228 lb 4.8 oz Intake: IV Fluids 60 NS (0.9%) 60 Oral 2520 1950 550 Packed Cells 300 Chauhan Irrigate Amount 75 Output: Urine 100 Chauhan 900 1375 900 Other: Date of Last Bowel 02/02/20 Movement # Bowel Movements 1 Estimated Stool Amount Medium O2: 3L NC Infusions: None Medications: Acetaminophen (Tylenol Tab*) 650 mg PO Q6H PRN PRN Reason: PAIN-MILD/TEMP >/= 100.4 Last Admin: 02/02/20 10:47 Dose: 650 mg Al Hydrox/Mg Hydrox/Simethicone (Maalox Plus*) 30 ml PO Q6H PRN PRN Reason: INDIGESTION Apixaban (Eliquis*) 2.5 mg PO BID [facility] Last Admin: 02/02/20 05:04 Dose: 2.5 mg Atorvastatin Calcium (Lipitor*) 80 mg PO BEDTIME [facility] Last Admin: 02/01/20 20:19 Dose: 80 mg Buspirone HCl (Buspar Tab*) 10 mg PO BID [facility] Last Admin: 02/02/20 08:33 Dose: 10 mg Clopidogrel Bisulfate (Plavix Tab*) 75 mg PO DAILY [facility] Last Admin: 02/02/20 08:33 Dose: 75 mg Dextrose (D50w Syringe 50 Ml*) 12.5 gm IV PUSH .FOR FS < 60 - SS PRN PRN Reason: FS < 60 Finasteride (Proscar Tab*) 5 mg PO BEDTIME [facility] Last Admin: 02/01/20 20:53 Dose: 5 mg Furosemide (Lasix Tab*) 40 mg PO BID [facility] Last Admin: 02/02/20 08:33 Dose: 40 mg Insulin Human Lispro (Humalog*) 0 units SUBCUT ACHS [facility]; Protocol Last Admin: 02/02/20 11:56 Dose: 1 units Isosorbide Mononitrate (Imdur Er Tab*) 120 mg PO BID [facility] Last Admin: 02/02/20 08:33 Dose: 120 mg Lisinopril (Prinivil Tab*) 5 mg PO QAM [facility] Last Admin: 02/02/20 08:33 Dose: 5 mg Magnesium Oxide (Magox 400 Tab*) [facility] [place] Admin: 02/02/20 08:33 Dose: 400 mg Metoprolol Succinate (Toprol Xl Tab*) 25 mg PO DAILY [facility] Last Admin: 02/02/20 08:33 Dose: 25 mg Minoxidil (Loniten Tab*) 2.5 mg PO BID [facility] Last Admin: 02/02/20 08:33 Dose: 2.5 mg Nitroglycerin (Nitroglycerin Tab 0.4 Mg*) 0.4 mg SL Q5M PRN PRN Reason: ANGINA Last Admin: 02/01/20 10:19 Dose: 0.4 mg Ondansetron HCl (Zofran Inj*) 4 mg IV ONCE PRN PRN Reason: NAUSEA Pantoprazole Sodium (Protonix Tab*) 40 mg PO DAILY [facility] Last Admin: 02/02/20 08:32 Dose: 40 mg Sertraline HCl (Zoloft*) 50 mg PO QAM [facility] Last Admin: 02/02/20 08:33 Dose: 50 mg Terazosin HCl (Hytrin Cap*) 5 mg PO BEDTIME [facility] Last Admin: 02/01/20 20:17 Dose: 5 mg Physical Exam: Constitutional: awake, alert, no distress, no diaphoresis Head: normocephalic, atraumatic Eyes: no pallor, no icterus ENT: moist mucous membranes Neck: soft, supple CVS: irreg rate, regular, no murmur Chest/Resp: bilateral air entry, no rhales, no wheeze, no rhonchi, no acc muscle use Abdomen/GI: soft, nontender, nondistended, BS+ Ext/Msk: warm, pulses+, no edema, puncture site intact left groin CDI Skin: intact, warm Neuro: awake, alert, orientedx3, moving all extremities, does have some slowed speech, poor memory Psych: appears withdrawn Labs: Laboratory Results - last 24 hr 02/01/20 02/01/20 02/01/20 16:41 20:40 20:48 WBC RBC Hgb Hct MCV MCH MCHC RDW Plt Count MPV Plt Count ,Citrate Sodium Potassium Chloride Carbon Dioxide Anion Gap BUN Creatinine Est GFR ( Amer) Est GFR (Non-Af Amer) BUN/Creatinine Ratio Glucose POC Glucose (mg/dL) 189 H 181 H Calcium Magnesium Iron TIBC % Saturation Unsat Iron Binding Transferrin Ferritin Total Bilirubin AST ALT Alkaline Phosphatase Troponin I 4.92 H* Total Protein Albumin Globulin Albumin/Globulin Ratio Blood Type Antibody Screen Crossmatch 02/02/20 02/02/20 02/02/20 05:10 05:10 05:10 WBC 7.4 RBC 2.26 L Hgb 7.2 L Hct 20 L MCV 91 MCH 32 H MCHC 35 RDW 14 Plt Count Platelets clumped. H MPV Not Reportable Plt Count ,Citrate Sodium 132 L Potassium 3.8 Chloride 97 L Carbon Dioxide 25 Anion Gap 10 BUN 45 H Creatinine 5.28 H Est GFR ( Amer) 13.3 Est GFR (Non-Af Amer) 11.0 BUN/Creatinine Ratio 8.5 Glucose 122 H POC Glucose (mg/dL) Calcium 7.9 L Magnesium 1.9 Iron TIBC % Saturation Unsat Iron Binding Transferrin Ferritin Total Bilirubin 1.40 H AST 27 ALT 45 Alkaline Phosphatase 118 H Troponin I 4.90 H* Total Protein 5.5 L Albumin 3.3 Globulin 2.2 Albumin/Globulin Ratio 1.5 Blood Type B Positive Antibody Screen Negative Crossmatch See Detail 02/02/20 02/02/20 02/02/20 07:48 09:33 09:33 WBC RBC Hgb Hct MCV MCH MCHC RDW Plt Count MPV Plt Count ,Citrate 119 L Sodium Potassium Chloride Carbon Dioxide Anion Gap BUN Creatinine Est GFR ( Amer) Est GFR (Non-Af Amer) BUN/Creatinine Ratio Glucose POC Glucose (mg/dL) 147 H Calcium Magnesium Iron < 20 L TIBC 196 L % Saturation 10 L Unsat Iron Binding < 181 Transferrin 140 L Ferritin 706.6 H Total Bilirubin AST ALT Alkaline Phosphatase Troponin I 4.50 H* Total Protein Albumin Globulin Albumin/Globulin Ratio Blood Type Antibody Screen Crossmatch 02/02/20 11:26 WBC RBC Hgb Hct MCV MCH MCHC RDW Plt Count MPV Plt Count ,Citrate Sodium Potassium Chloride Carbon Dioxide Anion Gap BUN Creatinine Est GFR ( Amer) Est GFR (Non-Af Amer) BUN/Creatinine Ratio Glucose POC Glucose (mg/dL) 176 H Calcium Magnesium Iron TIBC % Saturation Unsat Iron Binding Transferrin Ferritin Total Bilirubin AST ALT Alkaline Phosphatase Troponin I Total Protein Albumin Globulin Albumin/Globulin Ratio Blood Type Antibody Screen Crossmatch Imaging: Echo 02/01: EF 55-60% Assessment: 64M with extensive medical history, initially presents on 01/26/20 with right sided chest and arm pain. He underwent stent of culprit ramus/Lcx. He recovered and went to floor. Returned to ICU on 01/31 after a STEMI alert and another cardiac cath to which there was no intervention. - Chest pain - STEMI - ESRD on HD Plan: Neuro- - History of ischemic stroke: residual memory loss. No changes. -Delirium prec; avoid BDZ CVS- - HTN: continue all medications -Maintain MAP>65 as long as SBP<160 Resp- -Wean Fio2 to keep sat>92% - Aspiration prec, Pulmonary Toilet ID- - No active issues - Goal temp<101 GI- -Nutrition: heart healthy diet -GI prophylaxis not indicated Renal- - ESRD on HD: Due for HD MWF. Nephrology will f/up on iron studies -strict I/O, replete to keep K>4, Mg>2 - patient has chronic chauhan d/t chronic retention Heme- - Anemia: chronically low but this AM hgb was 7.2. Replaced with 2U PRBC. Recheck CBC @ 1800 Endo-Maintain BG<200, insulin protocol as needed Musculsk- pressure ulcer prophylaxis. Activity per cardiology. Wounds- none Nutrition- heart healthy DVT prophylaxis: eliquis GI prophylaxis: not indicated Chauhan Catheter: chronic Disposition: Patient requires does not require critical care. Is stable and ready for transfer to the floor, pending cardiology approval Patient clinical status: stable Code Status: full <Michael Good - Last Filed: 02/02/20 17:17> Progress Note - Progress Note Note: 64y M w/ CAD/CABG, ESRD on HD; had a repeat cath yesterday for chest pain demonstrating intact coronary stents. suspect that distal PDA branches to RCA ( collaterals) may have been lost due to new competitive claritza via Cx to RCA after previous PCI. No intervention done. noted trops elevated and now downtrending. hemodyn stable. hg has been low and slow decline past few days, today 7.2. for prbc x2 today. for possible HD tomorrow check CBC and BMP after blood to watch for K and new hg level. at this time, can be transferred to monitored bed, continued followup. I have also seen the patient and examined her.
[2020-02-02 18:13] LABS: ABS Eosinophils 0.1 10^3/ul (0-0.6); ABS Lymphocytes 0.6 10^3/ul (1.0-4.8); ABS Monocytes 0.7 10^3/ul (0-0.8); ABS Neutrophils 4.7 10^3/ul (1.5-7.7); Eosinophil % 1.5 %; Hematocrit 21 % (42-52); Hemoglobin 7.4 g/dL (14.0-18.0); Lymphocyte % 9.2 %; Mean Corpuscular HGB Conc 35 g/dL (31-36); Mean Corpuscular Hemoglobin 32 pg (27-31); Mean Corpuscular Volume 91 fL (80-94); Mean Platelet Volume 9.6 fL (7.4-10.4); Platelet Count 105 10^3/uL (150-450); Red Blood Count 2.32 10^6 /uL (4.18-5.48); Red Cell Distribution Width 14 % (10-15); White Blood Count 6.1 10^3/uL (3.5-10.8)
[2020-02-02 18:28] LABS: Calcium 7.5 mg/dL (8.6-10.3); EGFR African American 11.8 (>60); EGFR Non-African American 9.7 (>60)
[2020-02-02 18:51] LABS: Hematocrit 24 % (42-52); Hemoglobin 8.3 g/dL (14.0-18.0); Mean Corpuscular HGB Conc 35 g/dL (31-36); Mean Corpuscular Hemoglobin 32 pg (27-31); Mean Corpuscular Volume 91 fL (80-94); Mean Platelet Volume 9.5 fL (7.4-10.4); Platelet Count 123 10^3/uL (150-450); Red Blood Count 2.59 10^6 /uL (4.18-5.48); Red Cell Distribution Width 14 % (10-15); White Blood Count 6.7 10^3/uL (3.5-10.8)
[2020-02-02] MEDS: Terazosin CAP* 5 MG PO SCH (20:52)
[2020-02-02] MEDS: Finasteride TAB* 5 MG PO SCH (20:52)
[2020-02-02] MEDS: Atorvastatin* 80 MG TAB PO SCH (20:52)
[2020-02-03 00:31] LABS: ABS Eosinophils 0.1 10^3/ul (0-0.6); ABS Lymphocytes 0.6 10^3/ul (1.0-4.8); ABS Monocytes 0.8 10^3/ul (0-0.8); ABS Neutrophils 5.2 10^3/ul (1.5-7.7); Eosinophil % 1.8 %; Hematocrit 23 % (42-52); Hemoglobin 7.7 g/dL (14.0-18.0); Lymphocyte % 9.5 %; Mean Corpuscular HGB Conc 34 g/dL (31-36); Mean Corpuscular Hemoglobin 31 pg (27-31); Mean Corpuscular Volume 90 fL (80-94); Mean Platelet Volume 9.6 fL (7.4-10.4); Platelet Count 117 10^3/uL (150-450); Red Blood Count 2.49 10^6 /uL (4.18-5.48); Red Cell Distribution Width 14 % (10-15); White Blood Count 6.8 10^3/uL (3.5-10.8)
[2020-02-03 06:20] LABS: Hematocrit 23 % (42-52); Hemoglobin 8.1 g/dL (14.0-18.0); Mean Corpuscular HGB Conc 35 g/dL (31-36); Mean Corpuscular Hemoglobin 32 pg (27-31); Mean Corpuscular Volume 90 fL (80-94); Platelet Count 127 10^3/uL (150-450); Red Blood Count 2.58 10^6 /uL (4.18-5.48); Red Cell Distribution Width 14 % (10-15); White Blood Count 6.8 10^3/uL (3.5-10.8)
[2020-02-03 06:35] LABS: BUN/Creatinine Ratio 9.9 (8-20); Calcium 8.2 mg/dL (8.6-10.3); EGFR African American 10.5 (>60); EGFR Non-African American 8.7 (>60); Potassium 3.8 mmol/L (3.5-5.0)
[2020-02-03] MEDS: Insulin LISPRO* 1 UNITS UNIT SUBCUT SCH ×4 (08:03→20:51)
--- NOTE | 2020-02-03 09:16 | PN ---
<Amy Epperson - Last Filed: 02/03/20 09:07> Subjective Date of Service: 02/03/20 - NSTEMI. ESRD, Anemia, AFL Interval History: f/u aflutter, NSTEMI s/p pci Patient reports mild shortness of breath, no c/o chest pain, palpitations, sensation of heart racing or dizziness. States he had a BM yesterday denies melena, hematochezia. Denies bloody emesis. Denies left groin access site pain/ abdominal pain. To have HD today. I spoke with Dr. Cuenca 02/02/20 who agreed to address LACY today with HD. Medications Active Medications: Acetaminophen (Tylenol Tab*) 650 mg PO Q6H PRN PRN Reason: PAIN-MILD/TEMP >/= 100.4 Last Admin: 02/02/20 10:47 Dose: 650 mg Al Hydrox/Mg Hydrox/Simethicone (Maalox Plus*) 30 ml PO Q6H PRN PRN Reason: INDIGESTION Apixaban (Eliquis*) 2.5 mg PO BID [facility] Last Admin: 02/02/20 20:52 Dose: 2.5 mg Atorvastatin Calcium (Lipitor*) 80 mg PO BEDTIME [facility] Last Admin: 02/02/20 20:52 Dose: 80 mg Buspirone HCl (Buspar Tab*) 10 mg PO BID [facility] Last Admin: 02/02/20 20:52 Dose: 10 mg Clopidogrel Bisulfate (Plavix Tab*) 75 mg PO DAILY [facility] Last Admin: 02/02/20 08:33 Dose: 75 mg Dextrose (D50w Syringe 50 Ml*) 12.5 gm IV PUSH .FOR FS < 60 - SS PRN PRN Reason: FS < 60 Finasteride (Proscar Tab*) 5 mg PO BEDTIME [facility] Last Admin: 02/02/20 20:52 Dose: 5 mg Furosemide (Lasix Tab*) 40 mg PO BID [facility] Last Admin: 02/02/20 20:52 Dose: 40 mg Insulin Human Lispro (Humalog*) 0 units SUBCUT [facility]; Protocol Last Admin: 02/03/20 08:03 Dose: Not Given Isosorbide Mononitrate (Imdur Er Tab*) 120 mg PO BID [facility] Last Admin: 02/02/20 20:52 Dose: 120 mg Lisinopril (Prinivil Tab*) 5 mg PO QAM [facility] Last Admin: 02/02/20 08:33 Dose: 5 mg Magnesium Oxide (Magox 400 Tab*) 400 mg PO QAM [facility] Last Admin: 02/02/20 08:33 Dose: 400 mg Metoprolol Succinate (Toprol Xl Tab*) 25 mg PO DAILY [facility] Last Admin: 02/02/20 08:33 Dose: 25 mg Minoxidil (Loniten Tab*) 2.5 mg PO BID [facility] Last Admin: 02/02/20 21:03 Dose: 2.5 mg Nitroglycerin (Nitroglycerin Tab 0.4 Mg*) 0.4 mg SL Q5M PRN PRN Reason: ANGINA Last Admin: 02/01/20 10:19 Dose: 0.4 mg Ondansetron HCl (Zofran Inj*) 4 mg IV ONCE PRN PRN Reason: NAUSEA Pantoprazole Sodium (Protonix Tab*) 40 mg PO DAILY [facility] Last Admin: 02/02/20 08:32 Dose: 40 mg Sertraline [facility] ([facility]oloft*) [facility] Last Admin: 02/02/20 08:33 Dose: 50 mg Terazosin HCl (Hytrin Cap*) 5 mg PO BEDTIME [facility] Last Admin: 02/02/20 20:52 Dose: 5 mg Objective Vital Signs: Temp Pulse Resp BP Pulse Ox 98.7 F 84 20 139/67 92 02/03/20 07:15 02/03/20 07:15 02/03/20 08:00 02/03/20 07:15 02/03/20 07:15 Oxygen Devices in Use Now: Nasal Cannula Appearance: chronically ill, mildly distressed, sitting upright in bed. Eyes: No Scleral Icterus, PERRLA Ears/Nose/Mouth/Throat: Mucous Membranes Moist Neck: Trachea Midline, No Thyroid Enlargement, Masses Respiratory: Symmetrical Chest Expansion and Respiratory Effort, - - rales right ase Cardiovascular: - - cabg scar noted, regular currently with 1/6 systolic murmur Abdominal: NL Sounds; No Tenderness; No Distention Extremities: No Edema - bounding PT pulses., - - right groin intact. no ecchymosis, pain or swelling. Left groin intact, 3+ left femoral pulse. No thrill, no hematoma. Skin: No Rash or Ulcers Neurological: Alert and Oriented x 3, - Lines/Tubes/Other Access: Clean, Dry and Intact Joe, Clean, Dry and Intact Peripheral IV, Clean, Dry and Intact Other Access - fistular RUE Laboratory Results: 02/03/20 05:46 02/03/20 05:46 INR (Anticoag Therapy) 1.14 (0.82-1.09) H 01/29/20 18:05 APTT 35.4 seconds (26.0-38.0) 01/30/20 04:30 Total Bilirubin 1.40 mg/dL (0.2-1.0) H 02/02/20 05:10 AST 27 U/L (13-39) 02/02/20 05:10 ALT 45 U/L (7-52) 02/02/20 05:10 Alkaline Phosphatase 118 U/L (34-104) H 02/02/20 05:10 CK-MB (CK-2) 3.6 ng/mL (0.6-6.3) 01/26/20 02:29 B-Natriuretic Peptide 947 pg/mL (<=100) H 01/26/20 02:29 Total Protein 5.5 g/dL (6.4-8.9) L 02/02/20 05:10 Albumin 3.3 g/dL (3.2-5.2) 02/02/20 05:10 Globulin 2.2 g/dL (2-4) 02/02/20 05:10 Albumin/Globulin Ratio 1.5 (1-3) 02/02/20 05:10 Triglycerides 170 mg/dL 01/26/20 02:29 Cholesterol 125 mg/dL 01/26/20 02:29 LDL Cholesterol 54 mg/dL 01/26/20 02:29 HDL Cholesterol 37.4 mg/dL 01/26/20 02:29 TSH 1.71 mcIU/mL (0.34-5.60) 01/26/20 09:40 01/26/20 01/26/20 01/26/20 02:29 05:30 08:35 Troponin I 0.76 H* 1.02 H* 2.01 H* 01/26/20 01/26/20 01/27/20 13:55 20:00 12:10 Troponin I 3.55 H* 3.33 H* 1.80 H* 01/30/20 01/31/20 01/31/20 04:30 18:56 22:44 Troponin I 1.30 H* 0.91 H* 0.95 H* 02/01/20 02/01/20 02/01/20 02:14 05:19 11:25 Troponin I 0.88 H* 0.82 H* 0.73 H* 02/01/20 02/02/20 02/02/20 20:40 05:10 09:33 Troponin I 4.92 H* 4.90 H* 4.50 H* Laboratory Results - last 24 hr 02/02/20 02/02/20 02/02/20 05:10 09:33 09:33 WBC RBC Hgb Hct MCV MCH MCHC RDW Plt Count MPV Neut % (Auto) Lymph % (Auto) [place] % (Auto) Eos % (Auto) Baso % (Auto) Absolute Neuts (auto) Absolute Lymphs (auto) Absolute Monos (auto) Absolute Eos (auto) Absolute Basos (auto) Absolute Nucleated RBC Nucleated RBC % Plt Count ,Citrate 119 L Sodium Potassium Chloride Carbon Dioxide Anion Gap BUN Creatinine Est GFR ( Amer) Est GFR (Non-Af Amer) BUN/Creatinine Ratio Glucose POC Glucose (mg/dL) Calcium Iron < 20 L TIBC 196 L % Saturation 10 L Unsat Iron Binding < 181 Transferrin 140 L Ferritin 706.6 H Troponin I 4.50 H* Blood Type B Positive Antibody Screen Negative Crossmatch See Detail 02/02/20 02/02/20 02/02/20 11:26 16:41 17:54 WBC RBC Hgb Hct MCV MCH MCHC RDW Plt Count MPV Neut % (Auto) Lymph % (Auto) [place] % (Auto) Eos % (Auto) Baso % (Auto) Absolute Neuts (auto) Absolute Lymphs (auto) Absolute Monos (auto) Absolute Eos (auto) Absolute Basos (auto) Absolute Nucleated RBC Nucleated RBC % Plt Count ,Citrate Sodium 130 L Potassium 4.0 Chloride 96 L Carbon Dioxide 25 Anion Gap 9 BUN 53 H Creatinine 5.86 H Est GFR ( Amer) 11.8 Est GFR (Non-Af Amer) 9.7 BUN/Creatinine Ratio 9.0 Glucose 118 H POC Glucose (mg/dL) 176 H 150 H Calcium 7.5 L Iron TIBC % Saturation Unsat Iron Binding Transferrin Ferritin Troponin I Blood Type Antibody Screen Crossmatch 02/02/20 02/02/20 02/02/20 17:54 18:44 21:00 WBC 6.1 6.7 RBC 2.32 L 2.59 L Hgb 7.4 L 8.3 L Hct 21 L 24 L MCV 91 91 MCH 32 H 32 H MCHC 35 35 RDW 14 14 Plt Count 105 L 123 L MPV 9.6 9.5 Neut % (Auto) 77.1 Lymph % (Auto) 9.2 [place] % (Auto) 11.8 Eos % (Auto) 1.5 Baso % (Auto) 0.4 Absolute Neuts (auto) 4.7 Absolute Lymphs (auto) 0.6 L Absolute Monos (auto) 0.7 Absolute Eos (auto) 0.1 Absolute Basos (auto) 0.0 Absolute Nucleated RBC 0.0 Nucleated RBC % 0.0 Plt Count ,Citrate Sodium Potassium Chloride Carbon Dioxide Anion Gap BUN Creatinine Est GFR ( Amer) Est GFR (Non-Af Amer) BUN/Creatinine Ratio Glucose POC Glucose (mg/dL) 149 H Calcium Iron TIBC % Saturation Unsat Iron Binding Transferrin Ferritin Troponin I Blood Type Antibody Screen Crossmatch 02/03/20 02/03/20 02/03/20 00:21 05:46 05:46 WBC 6.8 6.8 RBC 2.49 L 2.58 L Hgb 7.7 L 8.1 L Hct 23 L 23 L MCV 90 90 MCH 31 32 H MCHC 34 35 RDW 14 14 Plt Count 117 L 127 L MPV 9.6 10.0 Neut % (Auto) 77.2 Lymph % (Auto) 9.5 [place] % (Auto) 11.1 Eos % (Auto) 1.8 Baso % (Auto) 0.4 Absolute Neuts (auto) 5.2 Absolute Lymphs (auto) 0.6 L Absolute Monos (auto) 0.8 Absolute Eos (auto) 0.1 Absolute Basos (auto) 0.0 Absolute Nucleated RBC 0.0 Nucleated RBC % 0.0 Plt Count ,Citrate Sodium 128 L Potassium 3.8 Chloride 93 L Carbon Dioxide 25 Anion Gap 10 BUN 64 H Creatinine 6.45 H Est GFR ( Amer) 10.5 Est GFR (Non-Af Amer) 8.7 BUN/Creatinine Ratio 9.9 Glucose 106 H POC Glucose (mg/dL) Calcium 8.2 L Iron TIBC % Saturation Unsat Iron Binding Transferrin Ferritin Troponin I Blood Type Antibody Screen Crossmatch 02/03/20 07:01 WBC RBC Hgb Hct MCV MCH MCHC RDW Plt Count MPV Neut % (Auto) Lymph % (Auto) [place] % (Auto) Eos % (Auto) Baso % (Auto) Absolute Neuts (auto) Absolute Lymphs (auto) Absolute Monos (auto) Absolute Eos (auto) Absolute Basos (auto) Absolute Nucleated RBC Nucleated RBC % Plt Count ,Citrate Sodium Potassium Chloride Carbon Dioxide Anion Gap BUN Creatinine Est GFR ( Amer) Est GFR (Non-Af Amer) BUN/Creatinine Ratio Glucose POC Glucose (mg/dL) 132 H Calcium Iron TIBC % Saturation Unsat Iron Binding Transferrin Ferritin Troponin I Blood Type Antibody Screen Crossmatch Diagnostic Imaging: Transthoracic Echocardiogram Study Date: 01/26/2020 Summary: - Left ventricle: The cavity size is at the upper limits of normal. Wall thickness is mildly to moderately increased. Systolic function is normal. The estimated ejection fraction is 55-60%. Wall motion is normal; there are no regional wall motion abnormalities. - Right ventricle: Systolic function is normal. - Left atrium: The atrium is severely dilated. - Atrial septum: A closure device is present. - Mitral valve: There is mild to moderate regurgitation. - Aortic valve: There is no evidence of stenosis. CXR Exam Date: 01/26/20 FINDINGS: LINES AND TUBES: None. CARDIOMEDIASTINAL SILHOUETTE: The cardiac silhouette is mildly enlarged. The cardiomediastinal silhouette is otherwise normal for portable technique. PLEURA: The costophrenic angles are sharp. No pleural abnormalities are noted. LUNG PARENCHYMA: There is prominence of the central pulmonary vasculature. ABDOMEN: The upper abdomen is clear. There is no subphrenic gas. BONES AND SOFT TISSUES: The patient is status post median sternotomy. IMPRESSION: MILD CARDIOMEGALY WITH PULMONARY VASCULAR CONGESTION. Cardiac Catheterization Report SCOTT FELIZ [id number] 01/26/20 Patent areas of prior stenting to the proximal circumflex back into the left main and the high first obtuse marginal branch/trifurcation marginal branch back in towards the left main in a double-barreled technique. No evidence of significant thrombus present in either vessel with JAE 3 flow. The mid stent in the circumflex appears to be patent as well. Significant disease is noted within the LAD past the point of insertion as well as the new finding of poor blood flow in retrograde fashion in the proximal portion of the posterior descending artery faintly at best filling the the proximal segment of the right posterior descending artery. It appears that most of the blood flow to the distal right coronary artery is currently coming from the collateral from the circumflex artery now that the proximal obstructions have been relieved by prior stent placement. Clearly, given the size of this vessel. I would not attempt to deliver a wire in a retrograde fashion to supply just the posterior left ventricular branch, especially since there is what appears to be a collateral already established to that vessel. We would maximize medical management to this area at best. We will cycle troponins to see whether or not there was an increase as one would anticipate if this was truly an acute event . Given that there is no thrombosis present at the circumflex proximal or mid stent or the stent in the trifurcation marginal branch, we will discuss the issue of continuing clopidogrel with the Eliquis versus switching to Brilinta. Apparently, the patient did not tolerate Brilinta well at all when he was on it last time due to significant side effects. [id number]/[facility] #: [id number] <Electronically signed by Aj Hannon MD> 02/02/20 1311 Aj Hannon MD Dictated Date/Time: 02/01/20 1512 Transcribed Date/Time 02/01/20 1651 Copy to: CC: Lg Beltre DO; Aj Hannon MD; Benjy Caban MD This report is only to be considered final once signed by the Provider(s) as displayed in the "<Electronically Signed by >" field (s). Absence of a signature indicates the report is in a draft status and still needs to be finalized. In the event this document was created by someone other than the signing Provider, the individual initiating the document will be listed in the "Entered by:" or "Dictated by:" ortiz. 3 of 3 EKG Data: Telemetry: rate controlled atrial flutter overnight, No VT occassional PVCs ECG 02/02/2020; AFL rate [address] depression. Assessment/Plan 1. NSTEMI; due to early instent restenosis to proximal Lcx and Ramus s/p MARGARET to Ramus, Lcx extending back into LM in kissing fashion on 01/30/20. On 02/01/20 recurrent c/o chest pain with lateral ST depression c/w NSTEMI. Trop peaked on at 4.92. Relook cath 02/01/20 revealed patent Lcx stents, there was a new finding of poor flow in retrograde fashion in proximal PDA likely due to loss of collaterals from Lcx intervention. Distal PDA did have collaterals. Medical therapy recommended. Not a candidate for Effient due to h/o CVA. In the past had bradycardia on Brilinta. On Plavix and Eliquis. It is possible he is a plavix non responder, however he may be protected now that he is on a DOAC. It may be reasonable to convert to Brilinta and monitor closely for bradycardia given Adenosine effect of Brilinta. Will speak with inteventionalist. On statin , and bblocker therapy. Not on ASA due to h/o GI bleedin 2017 with anemia and thrombocytopenia. On eliquis with Plavix ( [place] AF-PCI trial). #2 Anemia; likely due to anemia of chronic disease given ESDR. LACY profile abnormal yesterday. I spoke with Dr. Cuenca nephrology who stated he would address today with HD. stool negative for occult blood. there was an incidental left retrograde hematoma. Unlikely to cause drop in H+H given size. Primary team to repeat US to r/o expansion. 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 Rates controlled on 25mg/day. No evidence of bradyarrythmias. 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 Thus, caution use of AVN agents. #4 ESRD; On HD to be dialyzed today. #5 thrombocytopenia; improving. 127,000 today. /on Plavix 75/day. #6 disposition pending course. To have Duplex of abdomen to ensure RP bleed is not expanding. will d/w interventionalist about ? conversion to brilinta from Plavix due to ? Plavix non responder, however, given h/o bradycardia on brilinta ( adenosine effect) it may be reasonable to stay on current regimen now that he is on Eliquis which may give him additional protection. D/W Dr. Verde who agrees with plan of care. Attending: Nora Verde <Nora Verde - Last Filed: 02/03/20 15:06> Medications Active Medications: Acetaminophen (Tylenol Tab*) 650 mg PO Q6H PRN PRN Reason: PAIN-MILD/TEMP >/= 100.4 Last Admin: 02/02/20 10:47 Dose: 650 mg Al Hydrox/Mg Hydrox/Simethicone (Maalox Plus*) 30 ml PO Q6H PRN PRN Reason: INDIGESTION Apixaban (Eliquis*) 2.5 mg PO BID [facility] Last Admin: 02/03/20 09:47 Dose: 2.5 mg Atorvastatin Calcium (Lipitor*) 80 mg PO BEDTIME [facility] Last Admin: 02/02/20 20:52 Dose: 80 mg Buspirone HCl (Buspar Tab*) 10 mg PO BID [facility] Last Admin: 02/03/20 09:46 Dose: 10 mg Clopidogrel Bisulfate (Plavix Tab*) 75 mg PO DAILY [facility] Last Admin: 02/02/20 08:33 Dose: 75 mg Dextrose (D50w Syringe 50 Ml*) 12.5 gm IV PUSH .FOR FS < 60 - SS PRN PRN Reason: FS < 60 Finasteride (Proscar Tab*) 5 mg PO BEDTIME [facility] Last Admin: 02/02/20 20:52 Dose: 5 mg Furosemide (Lasix Tab*) 40 mg PO BID [facility] Last Admin: 02/03/20 09:47 Dose: 40 mg Iron Sucrose 200 mg/ Sodium (Chloride) 110 mls @ 440 mls/hr IVPB ONCALL ONE Stop: 02/05/20 14:14 Iron Sucrose 200 mg/ Sodium (Chloride) 110 mls @ 440 mls/hr IVPB ONCALL ONE Stop: 02/08/20 14:14 Insulin Human Lispro (Humalog*) 0 units SUBCUT [facility]CHS [facility]; Protocol Last Admin: 02/03/20 12:14 Dose: Not Given Isosorbide Mononitrate (Imdur Er Tab*) 120 mg PO BID [facility] Last Admin: 02/03/20 09:46 Dose: 120 mg Lisinopril (Prinivil Tab*) 5 mg PO QAM [facility] Last Admin: 02/02/20 08:33 Dose: 5 mg Magnesium Oxide (Magox 400 Tab*) 400 mg PO QAM [facility] Last Admin: 02/02/20 08:33 Dose: 400 mg Metoprolol Succinate (Toprol Xl Tab*) 25 mg PO DAILY [facility] Last Admin: 02/02/20 08:33 Dose: 25 mg Minoxidil (Loniten Tab*) 2.5 mg PO BID [facility] Last Admin: 02/03/20 09:47 Dose: 2.5 mg Nitroglycerin (Nitroglycerin Tab 0.4 Mg*) 0.4 mg SL Q5M PRN PRN Reason: ANGINA Last Admin: 02/01/20 10:19 Dose: 0.4 mg Ondansetron HCl (Zofran Inj*) 4 mg IV ONCE PRN PRN Reason: NAUSEA Pantoprazole Sodium (Protonix Tab*) 40 mg PO DAILY [facility] Last Admin: 02/02/20 08:32 Dose: 40 mg Sertraline HCl (Zoloft*) 50 mg PO QAM [facility] Last Admin: 02/02/20 08:33 Dose: 50 mg Terazosin HCl (Hytrin Cap*) 5 mg PO BEDTIME [facility] Last Admin: 02/02/20 20:52 Dose: 5 mg Objective Vital Signs: Temp Pulse Resp BP Pulse Ox 99.0 F 80 16 134/60 97 02/03/20 11:48 02/03/20 11:48 02/03/20 11:48 02/03/20 11:48 02/03/20 11:48 Laboratory Results: 02/03/20 05:46 02/03/20 05:46 INR (Anticoag Therapy) 1.14 (0.82-1.09) H 01/29/20 18:05 APTT 35.4 seconds (26.0-38.0) 01/30/20 04:30 Total Bilirubin 1.40 mg/dL (0.2-1.0) H 02/02/20 05:10 AST 27 U/L (13-39) 02/02/20 05:10 ALT 45 U/L (7-52) 02/02/20 05:10 Alkaline Phosphatase 118 U/L (34-104) H 02/02/20 05:10 CK-MB (CK-2) 3.6 ng/mL (0.6-6.3) 01/26/20 02:29 B-Natriuretic Peptide 947 pg/mL (<=100) H 01/26/20 02:29 Total Protein 5.5 g/dL (6.4-8.9) L 02/02/20 05:10 Albumin 3.3 g/dL (3.2-5.2) 02/02/20 05:10 Globulin 2.2 g/dL (2-4) 02/02/20 05:10 Albumin/Globulin Ratio 1.5 (1-3) 02/02/20 05:10 Triglycerides 170 mg/dL 01/26/20 02:29 Cholesterol 125 mg/dL 01/26/20 02:29 LDL Cholesterol 54 mg/dL 01/26/20 02:29 HDL Cholesterol 37.4 mg/dL 01/26/20 02:29 TSH 1.71 mcIU/mL (0.34-5.60) 01/26/20 09:40 01/26/20 01/26/20 01/26/20 02:29 05:30 08:35 Troponin I 0.76 H* 1.02 H* 2.01 H* 01/26/20 01/26/20 01/27/20 13:55 20:00 12:10 Troponin I 3.55 H* 3.33 H* 1.80 H* 01/30/20 01/31/20 01/31/20 04:30 18:56 22:44 Troponin I 1.30 H* 0.91 H* 0.95 H* 02/01/20 02/01/20 02/01/20 02:14 05:19 11:25 Troponin I 0.88 H* 0.82 H* 0.73 H* 02/01/20 02/02/20 02/02/20 20:40 05:10 09:33 Troponin I 4.92 H* 4.90 H* 4.50 H* Assessment/Plan The patient was seen and examined by myself today. No new c/o, no CP. No palpitations. CAD as above, on Plavix and Eliquis w/o alternatives. ' I agree with the above recommendations and plans. As plaque continues to form on maximum statin LDL at target, consider checking genetics, if familial hyperlipidemia, LDL will need to be more aggressively lowered. Could add Zetia now, consider referral to a lipid specialist as outpatient .
[2020-02-03] MEDS: Isosorbide Mononitrate ER TAB* 60 MG PO SCH ×2 (09:46→21:00)
[2020-02-03] MEDS: busPIRone TAB* 10 MG PO SCH ×2 (09:46→21:00)
[2020-02-03] MEDS: Apixaban* 2.5 MG TAB PO SCH ×2 (09:47→21:00)
[2020-02-03] MEDS: MinoXIDil TAB* 2.5 MG TAB PO SCH ×2 (09:47→20:59)
[2020-02-03] MEDS: Furosemide TAB* 40 MG PO SCH ×2 (09:47→21:00)
[2020-02-03] MEDS ORDERED: Iron Sucrose* 200 MG in NS 0.9% 100 ML* 100 ML IVPB ONE (11:00)
[2020-02-03] MEDS ORDERED: Heparin DIALYSIS ONLY(*) 1,000 UNITS/ML VIAL DIALYSIS ONE (12:00)
[2020-02-03] MEDS: Pantoprazole TAB * 40 MG TAB PO SCH (15:41)
[2020-02-03] MEDS: Metoprolol Succinate XL TAB* 25 MG PO SCH (15:41)
[2020-02-03] MEDS: Magnesium Oxide TAB* 400 MG PO SCH (15:41)
[2020-02-03] MEDS: Sertraline* 50 MG TAB PO SCH (15:42)
[2020-02-03] MEDS: Clopidogrel TAB* 75 MG PO SCH (15:42)
[2020-02-03] MEDS: Lisinopril TAB* 5 MG PO SCH (15:57)
--- NOTE | 2020-02-03 16:18 | PN ---
Progress Note - Progress Note Date of Service: 02/03/20 Note: Inpatient Acute Dialysis Note~ESRD Performed by Dr. Willi Cuenca, [facility] Nephrology 02/03/2020 I saw him today on HD for ESRD. HD routine MWF. He c/c of fatigue and decreased energy. Has GI bleeding s/p[ PRBCs. I'll start him on IV Iron with HD He was seen and examined on HD. HD Routine: MWF HD Duration: 3.0 Hr UF Goal: 2 L/Rx Vitals: BP: 144/87 HR: 70 Blood Flow: 400 cc/min Dialysate Flow: 600 cc/min Bath: K: 3K Ca: 2.5Ca Na: 138 Hco3: 32 Temp: 36 C Dialyzer: Revaclear [id number] Access: Rt AVF. Excellent access. Tolerates HD well. No Intradialytic Hypotension.
--- NOTE | 2020-02-03 17:57 | PN ---
Subjective Date of Service: 02/03/20 Interval History: Patient was seen today, he was in bed tired and fatigued. No acute pain. Mild Shortness of breath. Positive BM no active bleed I discussed with Dr. Hannon the finding (retroperitoneal bleed) of the CT abdomen done last night. I did discuss with radiologist Dr. Blake, and he acknowledged the finding to be very small and does not explain the degree of his anemia and his H/H drop. I Will maintain him on Plavix and Eliquis as recommended by Cardiology (and I agree) given his recent cath and stent. However, I am going to obtain US of his abdomen to assess his retroperitoneal bleed and will reassess 24 hrs later unless he has decompensation. I ordered CBC at 2 pm (not done yet) labs called to have done [facility]. Past Medical History: Unchanged from Admission Objective Active Medications: Acetaminophen (Tylenol Tab*) 650 mg PO Q6H PRN PRN Reason: PAIN-MILD/TEMP >/= 100.4 Last Admin: 02/02/20 10:47 Dose: 650 mg Al Hydrox/Mg Hydrox/Simethicone (Maalox Plus*) 30 ml PO Q6H PRN PRN Reason: INDIGESTION Apixaban (Eliquis*) 2.5 mg PO BID [facility] Last Admin: 02/03/20 09:47 Dose: 2.5 mg Atorvastatin Calcium (Lipitor*) 80 mg PO BEDTIME [facility] Last Admin: 02/02/20 20:52 Dose: 80 mg Buspirone HCl (Buspar Tab*) 10 mg PO BID [facility] Last Admin: 02/03/20 09:46 Dose: 10 mg Clopidogrel Bisulfate (Plavix Tab*) 75 mg PO DAILY [facility] Last Admin: 02/03/20 15:42 Dose: 75 mg Dextrose (D50w Syringe 50 Ml*) 12.5 gm IV PUSH .FOR FS < 60 - SS PRN PRN Reason: FS < 60 Finasteride (Proscar Tab*) 5 mg PO BEDTIME [facility] Last Admin: 02/02/20 20:52 Dose: 5 mg Furosemide (Lasix Tab*) 40 mg PO BID [facility] Last Admin: 02/03/20 09:47 Dose: 40 mg Iron Sucrose 200 mg/ Sodium (Chloride) 110 mls @ 440 mls/hr IVPB ONCALL ONE Stop: 02/05/20 14:14 Iron Sucrose 200 mg/ Sodium (Chloride) 110 mls @ 440 mls/hr IVPB ONCALL ONE Stop: 02/08/20 14:14 Insulin Human Lispro (Humalog*) 0 units SUBCUT ACHS [facility]; Protocol Last Admin: 02/03/20 16:07 Dose: Not Given Isosorbide Mononitrate (Imdur Er Tab*) 120 mg PO BID [facility] Last Admin: 02/03/20 09:46 Dose: 120 mg Lisinopril (Prinivil Tab*) [facility] Last Admin: 02/03/20 15:57 Dose: 5 mg Magnesium Oxide (Magox 400 Tab*) 400 mg PO QAM [facility] Last Admin: 02/03/20 15:41 Dose: 400 mg Metoprolol Succinate (Toprol Xl Tab*) 25 mg PO DAILY [facility] Last Admin: 02/03/20 15:41 Dose: 25 mg Minoxidil (Loniten Tab*) 2.5 mg PO BID [facility] Last Admin: 02/03/20 09:47 Dose: 2.5 mg Nitroglycerin (Nitroglycerin Tab 0.4 Mg*) 0.4 mg SL Q5M PRN PRN Reason: ANGINA Last Admin: 02/01/20 10:19 Dose: 0.4 mg Ondansetron HCl (Zofran Inj*) 4 mg IV ONCE PRN PRN Reason: NAUSEA Pantoprazole Sodium (Protonix Tab*) 40 mg PO DAILY [facility] Last Admin: 02/03/20 15:41 Dose: 40 mg Sertraline HCl (Zoloft*) 50 mg PO QAM [facility] Last Admin: 02/03/20 15:42 Dose: 50 mg Terazosin HCl (Hytrin Cap*) 5 mg PO BEDTIME [facility] Last Admin: 02/02/20 20:52 Dose: 5 mg Vital Signs - 8 hr 02/03/20 02/03/20 11:48 15:39 Temperature 99.0 F 97.4 F Pulse Rate 80 112 Respiratory 16 20 Rate Blood Pressure 134/60 150/74 (mmHg) O2 Sat by Pulse 97 95 Oximetry Oxygen Devices in Use Now: Nasal Cannula Appearance: awake, alert no distress Eyes: No Scleral Icterus, - - EOMI Ears/Nose/Mouth/Throat: Clear Oropharnyx, Mucous Membranes Moist Neck: Trachea Midline Respiratory: Symmetrical Chest Expansion and Respiratory Effort, - - bibasilar crackles (going for dialysistoday) Abdominal: NL Sounds; No Tenderness; No Distention Extremities: No Edema Neurological: Alert and Oriented x 3 Result Diagrams: 02/03/20 05:46 02/03/20 05:46 Additional Lab and Data: Laboratory Tests 01/29/20 01/29/20 01/29/20 06:01 06:01 07:31 APTT 72.0 H POC Glucose (mg/dL) 139 H Hemoglobin A1c 6.0 H 01/29/20 11:43 APTT POC Glucose (mg/dL) 110 H Hemoglobin A1c Microbiology and Other Data: FOBT not collected EKG Data: telemetry; a-flutter, V-rate 60 Assess/Plan/Problems-Billing Assessment: 64 yo man w/ ESRD, CAD, here with nonSTEMI, new atrial flutter - Patient Problems (1) Retroperitoneal bleed Current Visit: Yes Status: Acute Code(s): R58 - HEMORRHAGE, NOT ELSEWHERE CLASSIFIED SNOMED Code(s): 44205075 Comment: - seen on CT abdomen done 02/02/20 - The retroperitoneal bleed is very small to explain his H/H drops. Will continue to trend is H/H - I discussed with Dr. Hannon the finding (retroperitoneal bleed) of the CT abdomen done last night. I did discuss with radiologist Dr. Blake, and he acknowledged the finding to be very small and does not explain the degree of his anemia and his H/H drop. I Will maintain him on Plavix and Eliquis as recommended by Cardiology (and I agree) given his recent cath and stent. However, I am going to obtain US of his abdomen to assess his retroperitoneal bleed and will reassess 24 hrs later unless he has decompensation. I ordered CBC at 2 pm (not done yet) labs called to have done COSME. (2) Anemia Current Visit: Yes Status: Acute Priority: Medium Code(s): D64.9 - ANEMIA , UNSPECIFIED SNOMED Code(s): 834860629 Comment: - Mixed likely to ESRD. No active bleed - The retroperitoneal bleed is very small to explain his H/H drops. Will continue to trend his H/H - nephrology to manage IV venofer, epo (3) ESRD (end stage renal disease) Current Visit: Yes Status: Acute Priority: Medium Code(s): N18.6 - END STAGE RENAL DISEASE SNOMED Code(s): 06267866 Comment: -on HD- MWF (4) NSTEMI (non-ST elevated myocardial infarction) Current Visit: Yes Status: Acute Priority: High Code(s): I21.4 - NON-ST ELEVATION (NSTEMI) MYOCARDIAL INFARCTION SNOMED Code(s): 84358667 Comment: - s/p cath x2 - 01/29/20 s/p culprit ramus/Lcx PCI-2 stents - and repeated again 02/01/20 due to reccurent arm/chest pain no intervention - cont Plavix, eliquis (5) ACS (acute coronary syndrome) Current Visit: No Status: Acute Code(s): I24.9 - ACUTE ISCHEMIC HEART DISEASE, UNSPECIFIED SNOMED Code(s): 044739291 Comment: - s/p cath x2 - 01/29/20 s/p culprit ramus/Lcx PCI-2 stents - and repeated again 02/01/20 due to reccurent arm/chest pain no intervention - cont Plavix, eliquis (6) Diabetes Current Visit: No Status: Acute Code(s): E11.9 - TYPE 2 DIABETES MELLITUS WITHOUT COMPLICATIONS SNOMED Code(s): 56518382 Comment: Lispro started (7) HTN (hypertension) Current Visit: No Status: Acute Code(s): I10 - ESSENTIAL (PRIMARY) HYPERTENSION SNOMED Code(s): 47957334 Comment: - Continue minoxidil 2.5 mg bid, Metoprolol-XL 25 mg daily, Nitrate isosrbide 120 mg bid, Lisinopril 5mg QAM; (8) Dyslipidemia Current Visit: No Status: Chronic Code(s): E78.5 - HYPERLIPIDEMIA, UNSPECIFIED SNOMED Code(s): 254540698 Comment: - Continue lipitor 80 mg HS
[2020-02-03 18:24] LABS: ABS Eosinophils 0.1 10^3/ul (0-0.6); ABS Lymphocytes 0.5 10^3/ul (1.0-4.8); ABS Monocytes 0.7 10^3/ul (0-0.8); Eosinophil % 1.9 %; Hematocrit 25 % (42-52); Lymphocyte % 8.6 %; Mean Corpuscular HGB Conc 36 g/dL (31-36); Mean Corpuscular Hemoglobin 32 pg (27-31); Mean Corpuscular Volume 90 fL (80-94); Platelet Count 156 10^3/uL (150-450); Red Cell Distribution Width 14 % (10-15); White Blood Count 6.3 10^3/uL (3.5-10.8)
[2020-02-03] MEDS: Finasteride TAB* 5 MG PO SCH (21:00)
[2020-02-03] MEDS: Atorvastatin* 80 MG TAB PO SCH (21:00)
[2020-02-03] MEDS: Terazosin CAP* 5 MG PO SCH (21:00)
[2020-02-04 06:21] LABS: ABS Eosinophils 0.2 10^3/ul (0-0.6); ABS Lymphocytes 0.7 10^3/ul (1.0-4.8); ABS Monocytes 0.6 10^3/ul (0-0.8); ABS Neutrophils 4.4 10^3/ul (1.5-7.7); Eosinophil % 2.7 %; Hematocrit 26 % (42-52); Hemoglobin 8.9 g/dL (14.0-18.0); Lymphocyte % 12.1 %; Mean Corpuscular HGB Conc 35 g/dL (31-36); Mean Corpuscular Hemoglobin 32 pg (27-31); Mean Corpuscular Volume 91 fL (80-94); Mean Platelet Volume 9.6 fL (7.4-10.4); Platelet Count 160 10^3/uL (150-450); Red Blood Count 2.81 10^6 /uL (4.18-5.48); Red Cell Distribution Width 14 % (10-15)
[2020-02-04] MEDS: Insulin LISPRO* 1 UNITS UNIT SUBCUT SCH ×3 (06:39→16:01)
[2020-02-04 06:42] LABS: BUN/Creatinine Ratio 9.2 (8-20); Calcium 8.8 mg/dL (8.6-10.3); EGFR African American 13.8 (>60); EGFR Non-African American 11.4 (>60); Magnesium 2.1 mg/dL (1.9-2.7); Phosphorus 3.9 mg/dL (2.5-5.0)
[2020-02-04] MEDS: Apixaban* 2.5 MG TAB PO SCH (09:48)
[2020-02-04] MEDS: Metoprolol Succinate XL TAB* 25 MG PO SCH (09:48)
[2020-02-04] MEDS: busPIRone TAB* 10 MG PO SCH (09:48)
[2020-02-04] MEDS: Sertraline* 50 MG TAB PO SCH (09:48)
[2020-02-04] MEDS: Clopidogrel TAB* 75 MG PO SCH (09:48)
[2020-02-04] MEDS: Magnesium Oxide TAB* 400 MG PO SCH (09:48)
[2020-02-04] MEDS: Pantoprazole TAB * 40 MG TAB PO SCH (09:48)
[2020-02-04] MEDS: Isosorbide Mononitrate ER TAB* 60 MG PO SCH (09:48)
[2020-02-04] MEDS: Lisinopril TAB* 5 MG PO SCH (09:48)
[2020-02-04] MEDS: Furosemide TAB* 40 MG PO SCH (09:48)
[2020-02-04] MEDS: MinoXIDil TAB* 2.5 MG TAB PO SCH (09:52)
--- NOTE | 2020-02-04 10:17 | PN ---
<Amy Epperson - Last Filed: 02/04/20 10:10> Subjective Date of Service: 02/04/20 - AFL, NSTEMI Interval History: f/u aflutter, NSTEMI s/p pci Patient reports mild shortness of breath but adds it has improved since HD yesterday, no c/o chest pain, palpitations, sensation of heart racing or dizziness. States he had a BM yesterday denies melena, hematochezia. Denies bloody emesis. Denies left groin access site pain/abdominal pain. He states he feels great today, he reports frequent ambulation to the bathroom and is currently sitting in chair. Medications Active Medications: Acetaminophen (Tylenol Tab*) 650 mg PO Q6H PRN PRN Reason: PAIN-MILD/TEMP >/= 100.4 Last Admin: 02/02/20 10:47 Dose: 650 mg Al Hydrox/Mg Hydrox/Simethicone (Maalox Plus*) 30 ml PO Q6H PRN PRN Reason: INDIGESTION Apixaban (Eliquis*) 2.5 mg PO BID [facility] Last Admin: 02/04/20 09:48 Dose: 2.5 mg Atorvastatin Calcium (Lipitor*) 80 mg PO BEDTIME [facility] Last Admin: 02/03/20 21:00 Dose: 80 mg Buspirone HCl (Buspar Tab*) 10 mg PO BID [facility] Last Admin: 02/04/20 09:48 Dose: 10 mg Clopidogrel Bisulfate (Plavix Tab*) 75 mg PO DAILY [facility] Last Admin: 02/04/20 09:48 Dose: 75 mg Dextrose (D50w Syringe 50 Ml*) 12.5 gm IV PUSH .FOR FS < 60 - SS PRN PRN Reason: FS < 60 Finasteride (Proscar Tab*) 5 mg PO BEDTIME [facility] Last Admin: 02/03/20 21:00 Dose: 5 mg Furosemide (Lasix Tab*) 40 mg PO BID [facility] Last Admin: 02/04/20 09:48 Dose: 40 mg Iron Sucrose 200 mg/ Sodium (Chloride) 110 mls @ 440 mls/hr IVPB ONCALL ONE Stop: 02/05/20 14:14 Iron Sucrose 200 mg/ Sodium (Chloride) 110 mls @ 440 mls/hr IVPB ONCALL ONE Stop: 02/08/20 14:14 Insulin Human Lispro (Humalog*) 0 units SUBCUT ACHS [facility]; Protocol Last Admin: 02/04/20 06:39 Dose: Not Given Isosorbide Mononitrate (Imdur Er Tab*) 120 mg PO BID [facility] Last Admin: 02/04/20 09:48 Dose: 120 mg Lisinopril (Prinivil Tab*) 5 mg PO QAM [facility] Last Admin: 02/04/20 09:48 Dose: 5 mg Magnesium Oxide (Magox 400 Tab*) 400 mg PO QAM [facility] Last Admin: 02/04/20 09:48 Dose: 400 mg Metoprolol Succinate (Toprol Xl Tab*) 25 mg PO DAILY [facility] Last Admin: 02/04/20 09:48 Dose: 25 mg Minoxidil (Loniten Tab*) 2.5 mg PO BID [facility] Last Admin: 02/04/20 09:52 Dose: 2.5 mg Nitroglycerin (Nitroglycerin Tab 0.4 Mg*) 0.4 mg SL Q5M PRN PRN Reason: ANGINA Last Admin: 02/01/20 10:19 Dose: 0.4 mg Ondansetron HCl (Zofran Inj*) 4 mg IV ONCE PRN PRN Reason: NAUSEA Pantoprazole Sodium (Protonix Tab*) 40 mg PO DAILY [facility] Last Admin: 02/04/20 09:48 Dose: 40 mg Sertraline HCl (Zoloft*) 50 mg PO QAM [facility] Last Admin: 02/04/20 09:48 Dose: 50 mg Terazosin HCl (Hytrin Cap*) 5 mg PO BEDTIME [facility] Last Admin: 02/03/20 21:00 Dose: 5 mg Objective Vital Signs: Temp Pulse Resp BP Pulse Ox 98.0 F 59 18 135/49 96 02/04/20 07:15 02/04/20 07:15 02/04/20 07:15 02/04/20 07:15 02/04/20 07:15 Oxygen Devices in Use Now: None, Nasal Cannula Appearance: chronically ill, mildly distressed, sitting in chair. Eyes: No Scleral Icterus, PERRLA Ears/Nose/Mouth/Throat: Mucous Membranes Moist Neck: Trachea Midline, No Thyroid Enlargement, Masses Respiratory: Symmetrical Chest Expansion and Respiratory Effort, - - rales right ase Cardiovascular: - - cabg scar noted, regular currently with 1/6 systolic murmur Abdominal: NL Sounds; No Tenderness; No Distention Extremities: No Edema - bounding PT pulses., - - right groin intact. no ecchymosis, pain or swelling. Left groin intact, 3+ left femoral pulse. No thrill, no hematoma. Skin: No Rash or Ulcers Neurological: Alert and Oriented x 3, - Lines/Tubes/Other Access: Clean, Dry and Intact Peripheral IV, Clean, Dry and Intact Other Access - fistular RUE Laboratory Results: 02/04/20 05:47 02/04/20 05:47 INR (Anticoag Therapy) 1.14 (0.82-1.09) H 01/29/20 18:05 APTT 35.4 seconds (26.0-38.0) 01/30/20 04:30 Total Bilirubin 1.40 mg/dL (0.2-1.0) H 02/02/20 05:10 AST 27 U/L (13-39) 02/02/20 05:10 ALT 45 U/L (7-52) 02/02/20 05:10 Alkaline Phosphatase 118 U/L (34-104) H 02/02/20 05:10 CK-MB (CK-2) 3.6 ng/mL (0.6-6.3) 01/26/20 02:29 B-Natriuretic Peptide 947 pg/mL (<=100) H 01/26/20 02:29 Total Protein 5.5 g/dL (6.4-8.9) L 02/02/20 05:10 Albumin 3.3 g/dL (3.2-5.2) 02/02/20 05:10 Globulin 2.2 g/dL (2-4) 02/02/20 05:10 Albumin/Globulin Ratio 1.5 (1-3) 02/02/20 05:10 Triglycerides 170 mg/dL 01/26/20 02:29 Cholesterol 125 mg/dL 01/26/20 02:29 LDL Cholesterol 54 mg/dL 01/26/20 02:29 HDL Cholesterol 37.4 mg/dL 01/26/20 02:29 TSH 1.71 mcIU/mL (0.34-5.60) 01/26/20 09:40 03/03/20 03/03/20 03/03/20 02:29 05:30 08:35 Troponin I 0.76 H* 1.02 H* 2.01 H* 01/26/20 01/26/20 01/27/20 13:55 20:00 12:10 Troponin I 3.55 H* 3.33 H* 1.80 H* 01/30/20 01/31/20 01/31/20 04:30 18:56 22:44 Troponin I 1.30 H* 0.91 H* 0.95 H* 02/01/20 02/01/20 02/01/20 02:14 05:19 11:25 Troponin I 0.88 H* 0.82 H* 0.73 H* 02/01/20 02/02/20 02/02/20 20:40 05:10 09:33 Troponin I 4.92 H* 4.90 H* 4.50 H* Laboratory Results - last 24 hr 02/03/20 02/03/20 02/03/20 11:29 15:57 18:18 WBC 6.3 RBC 2.80 L Hgb 9.0 L Hct 25 L MCV 90 MCH 32 H MCHC 36 RDW 14 Plt Count 156 MPV 9.0 Neut % (Auto) 78.4 Lymph % (Auto) 8.6 Rincon % (Auto) 10.7 Eos % (Auto) 1.9 Baso % (Auto) 0.4 Absolute Neuts (auto) 5.0 Absolute Lymphs (auto) 0.5 L Absolute Monos (auto) 0.7 Absolute Eos (auto) 0.1 Absolute Basos (auto) 0.0 Absolute Nucleated RBC 0.0 Nucleated RBC % 0.0 Sodium Potassium Chloride Carbon Dioxide Anion Gap BUN Creatinine Est GFR ( Amer) Est GFR (Non-Af Amer) BUN/Creatinine Ratio Glucose POC Glucose (mg/dL) 191 H 114 H Calcium Phosphorus Magnesium 02/03/20 02/04/20 02/04/20 20:49 05:47 05:47 WBC 6.0 RBC 2.81 L Hgb 8.9 L Hct 26 L MCV 91 MCH 32 H MCHC 35 RDW 14 Plt Count 160 MPV 9.6 Neut % (Auto) 74.2 Lymph % (Auto) 12.1 Rincon % (Auto) 10.5 Eos % (Auto) 2.7 Baso % (Auto) 0.5 Absolute Neuts (auto) 4.4 Absolute Lymphs (auto) 0.7 L Absolute Monos (auto) 0.6 Absolute Eos (auto) 0.2 Absolute Basos (auto) 0.0 Absolute Nucleated RBC 0.0 Nucleated RBC % 0.0 Sodium 134 L Potassium 4.0 Chloride 96 L Carbon Dioxide 29 Anion Gap 9 BUN 47 H Creatinine 5.10 H Est GFR ( Amer) 13.8 Est GFR (Non-Af Amer) 11.4 BUN/Creatinine Ratio 9.2 Glucose 99 POC Glucose (mg/dL) 120 H Calcium 8.8 Phosphorus 3.9 Magnesium 2.1 02/04/20 06:34 WBC RBC Hgb Hct MCV MCH MCHC RDW Plt Count MPV Neut % (Auto) Lymph % (Auto) Rincon % (Auto) Eos % (Auto) Baso % (Auto) Absolute Neuts (auto) Absolute Lymphs (auto) Absolute Monos (auto) Absolute Eos (auto) Absolute Basos (auto) Absolute Nucleated RBC Nucleated RBC % Sodium Potassium Chloride Carbon Dioxide Anion Gap BUN Creatinine Est GFR ( Amer) Est GFR (Non-Af Amer) BUN/Creatinine Ratio Glucose POC Glucose (mg/dL) 115 H Calcium Phosphorus Magnesium Diagnostic Imaging: Transthoracic Echocardiogram Study Date: 01/26/2020 Summary: - Left ventricle: The cavity size is at the upper limits of normal. Wall thickness is mildly to moderately increased. Systolic function is normal. The estimated ejection fraction is 55-60%. Wall motion is normal; there are no regional wall motion abnormalities. - Right ventricle: Systolic function is normal. - Left atrium: The atrium is severely dilated. - Atrial septum: A closure device is present. - Mitral valve: There is mild to moderate regurgitation. - Aortic valve: There is no evidence of stenosis. CXR Exam Date: 01/26/20 FINDINGS: LINES AND TUBES: None. CARDIOMEDIASTINAL SILHOUETTE: The cardiac silhouette is mildly enlarged. The cardiomediastinal silhouette is otherwise normal for portable technique. PLEURA: The costophrenic angles are sharp. No pleural abnormalities are noted. LUNG PARENCHYMA: There is prominence of the central pulmonary vasculature. ABDOMEN: The upper abdomen is clear. There is no subphrenic gas. BONES AND SOFT TISSUES: The patient is status post median sternotomy. IMPRESSION: MILD CARDIOMEGALY WITH PULMONARY VASCULAR CONGESTION. Cardiac Catheterization Report SCOTT FELIZ [id number] 01/26/20 Patent areas of prior stenting to the proximal circumflex back into the left main and the high first obtuse marginal branch/trifurcation marginal branch back in towards the left main in a double-barreled technique. No evidence of significant thrombus present in either vessel with JAE 3 flow. The mid stent in the circumflex appears to be patent as well. Significant disease is noted within the LAD past the point of insertion as well as the new finding of poor blood flow in retrograde fashion in the proximal portion of the posterior descending artery faintly at best filling the the proximal segment of the right posterior descending artery. It appears that most of the blood flow to the distal right coronary artery is currently coming from the collateral from the circumflex artery now that the proximal obstructions have been relieved by prior stent placement. Clearly, given the size of this vessel. I would not attempt to deliver a wire in a retrograde fashion to supply just the posterior left ventricular branch, especially since there is what appears to be a collateral already established to that vessel. We would maximize medical management to this area at best. We will cycle troponins to see whether or not there was an increase as one would anticipate if this was truly an acute event . Given that there is no thrombosis present at the circumflex proximal or mid stent or the stent in the trifurcation marginal branch, we will discuss the issue of continuing clopidogrel with the Eliquis versus switching to Brilinta. Apparently, the patient did not tolerate Brilinta well at all when he was on it last time due to significant side effects. [id number]/[facility] #: [id number] <Electronically signed by Aj Hannon MD> 02/02/20 1311 Aj Hannon MD Dictated Date/Time: 02/01/20 1512 Transcribed Date/Time 02/01/20 1651 Copy to: CC: Lg Beltre DO; Aj Hannon MD; Benjy Caban MD This report is only to be considered final once signed by the Provider(s) as displayed in the "<Electronically Signed by >" field (s). Absence of a signature indicates the report is in a draft status and still needs to be finalized. In the event this document was created by someone other than the signing Provider, the individual initiating the document will be listed in the "Entered by:" or "Dictated by:" ortiz. 3 of 3 Patient Name: SCOTT FELIZ Medical Record#: [id number] Ordering Physician: Gab Holder MD Acct.#: [id number] : 1955 Age: 64 Sex: M Location: [address] [place] [address] MEDICAL/TELEMETRY Exam Date: 02/03/20915 ADM Status: ADM IN Order Information: US ABDOMEN LIMITED Accession Number: [id number] CPT: 44585 Indication: Retroperitoneal hemorrhage identified at the distal LEFT external iliac level on February 02, 2020 CT. Ultrasound requested to establish baseline and facilitate follow-up of size of the hematoma. COMPARISON: February 02, 2020 CT. Technique: Ultrasound of the LEFT distal external iliac region. REPORT AND IMPRESSION: #. At the distal LEFT external iliac region there is a complex fluid collection corresponding with the CT finding measuring up to 2.2 x 0.8 x 1.8 cm for an estimated volume of 2.2 mL. <Electronically signed by Chico Blake MD in OV> 02/03/201512 Dictated By: Chico Blake MD Dictated Date/Time: 02/03/20 151 Transcribed Date/Time: 02/03/201509 Copy to: CC:Gab Holder MD; Ashley Bunn DO; Micheal Salvador MD; Benjy Caban MD Imaging - [facility] Imaging - [facility] Imaging - [facility] [address] [address] ph ([phone]) ph ([phone]) ph ([phone]) This report is only to be considered final once signed by the Provider(s) as displayed in the "<Electronically Signed by >" field (s). Absence of a signature indicates the report is in a draft status and still needs to be finalized. In the event this document was created by someone other than the signing Provider, the individual initiating the document will be listed in the "Entered by:" or "Dictated by:" ortiz. of EKG Data: Telemetry: rate controlled atrial flutter overnight, No VT occasional PVCs ECG 02/02/2020; AFL rate [address] depression. Telemetry; Afl rate 60's, occasional PVC, No VT/VF Assessment/Plan #1 NSTEMI; s/p PCI to Lcx 01/30/2020( early re stent restenosis). On 02/01/2020 had recurrent c/o chest pain with lateral ST depression taken back to the lab at that time [facility] revealed patient Lcx stents. PDA had poor reflow proximally but filled distally from collateral flow. Medical therapy recommended. Troponin peaked on 02/01/20 at 4.9. LVEF 55-60% on TTE from 02/02/20. Left groin access site is intact, 3+ femoral pulse. No hematoma. On plavix 75/day in combination with Eliquis 2.5mg BID ( [employer] -PCI trial). Will follow up next week with Dr. Beltre( date and time placed in discharge plan). No recurrent chest pain since 02/01/20. He is stable and has been up and ambulating to bathroom with out complaints. Will sign off. LDL at goal on statin therapy. #2 small left distal external iliac hematoma. To have repeat duplex today. Size was insignificant and does not account for anemia. #3 LACY; H+ H stable. Stool negative for occult blood. Has known ESRD on HD. Dr. Cuenca replaced iron with HD yesterday. will differ to primary team and nephrology. He is on Eliquis and Plavix therapy. Appears to be tolerating at this time. #4 h/o HLD; LDL appears at goal on statin therapy. #5 Thrombocytopenia; resolved. Plts 160,000 today on Plavix therapy. #6 Disposition pending course. To have repeat abdominal duplex to re evaluate left sided RP hematoma. If unchanged will sign off case. f/u with Dr. Beltre next week. Will d/w Dr. Hernandez Attending: Elizabeth Hernandez <Elizabeth Hernandez - Last Filed: 02/04/20 15:53> Medications Active Medications: Acetaminophen (Tylenol Tab*) 650 mg PO Q6H PRN PRN Reason: PAIN-MILD/TEMP >/= 100.4 Last Admin: 02/02/20 10:47 Dose: 650 mg Al Hydrox/Mg Hydrox/Simethicone (Maalox Plus*) 30 ml PO Q6H PRN PRN Reason: INDIGESTION Apixaban (Eliquis*) 2.5 mg PO BID [facility] Last Admin: 02/04/20 09:48 Dose: 2.5 mg Atorvastatin Calcium (Lipitor*) 80 mg PO BEDTIME [facility] Last Admin: 02/03/20 21:00 Dose: 80 mg Buspirone HCl (Buspar Tab*) 10 mg PO BID [facility] Last Admin: 02/04/20 09:48 Dose: 10 mg Clopidogrel Bisulfate (Plavix Tab*) 75 mg PO DAILY [facility] Last Admin: 02/04/20 09:48 Dose: 75 mg Dextrose (D50w Syringe 50 Ml*) 12.5 gm IV PUSH .FOR FS < 60 - SS PRN PRN Reason: FS < 60 Finasteride (Proscar Tab*) 5 mg PO BEDTIME [facility] Last Admin: 02/03/20 21:00 Dose: 5 mg Furosemide (Lasix Tab*) 40 mg PO BID [facility] Last Admin: 02/04/20 09:48 Dose: 40 mg Iron Sucrose 200 mg/ Sodium (Chloride) 110 mls @ 440 mls/hr IVPB ONCALL ONE Stop: 02/05/20 14:14 Iron Sucrose 200 mg/ Sodium (Chloride) 110 mls @ 440 mls/hr IVPB ONCALL ONE Stop: 02/08/20 14:14 Insulin Human Lispro (Humalog*) [address] [facility]; Protocol Last Admin: 02/04/20 12:21 Dose: Not Given Isosorbide Mononitrate (Imdur Er Tab*) 120 mg PO BID [facility] Last Admin: 02/04/20 09:48 Dose: 120 mg Lisinopril (Prinivil Tab*) 5 mg PO QAM [facility] Last Admin: 02/04/20 09:48 Dose: 5 mg Magnesium Oxide (Magox 400 Tab*) 400 mg PO QAM [facility] Last Admin: 02/04/20 09:48 Dose: 400 mg Metoprolol Succinate (Toprol Xl Tab*) 25 mg PO DAILY [facility] Last Admin: 02/04/20 09:48 Dose: 25 mg Minoxidil (Loniten Tab*) 2.5 mg PO BID [facility] Last Admin: 02/04/20 09:52 Dose: 2.5 mg Nitroglycerin (Nitroglycerin Tab 0.4 Mg*) 0.4 mg SL Q5M PRN PRN Reason: ANGINA Last Admin: 02/01/20 10:19 Dose: 0.4 mg Ondansetron HCl (Zofran Inj*) 4 mg IV ONCE PRN PRN Reason: NAUSEA Pantoprazole Sodium (Protonix Tab*) 40 mg PO DAILY [facility] Last Admin: 02/04/20 09:48 Dose: 40 mg Sertraline HCl (Zoloft*) 50 mg PO QAM [facility] Last Admin: 02/04/20 09:48 Dose: 50 mg Terazosin HCl (Hytrin Cap*) 5 mg PO BEDTIME [facility] Last Admin: 02/03/20 21:00 Dose: 5 mg Objective Vital Signs: Temp Pulse Resp BP Pulse Ox 98.1 F 55 16 129/61 96 02/04/20 14:30 02/04/20 14:30 02/04/20 14:30 02/04/20 14:30 02/04/20 14:30 Laboratory Results: 02/04/20 05:47 02/04/20 05:47 INR (Anticoag Therapy) 1.25 (0.82-1.09) H 02/04/20 10:13 APTT 35.4 seconds (26.0-38.0) 01/30/20 04:30 Total Bilirubin 1.40 mg/dL (0.2-1.0) H 02/02/20 05:10 AST 27 U/L (13-39) 02/02/20 05:10 ALT 45 U/L (7-52) 02/02/20 05:10 Alkaline Phosphatase 118 U/L (34-104) H 02/02/20 05:10 CK-MB (CK-2) 3.6 ng/mL (0.6-6.3) 01/26/20 02:29 B-Natriuretic Peptide 947 pg/mL (<=100) H 01/26/20 02:29 Total Protein 5.5 g/dL (6.4-8.9) L 02/02/20 05:10 Albumin 3.3 g/dL (3.2-5.2) 02/02/20 05:10 Globulin 2.2 g/dL (2-4) 02/02/20 05:10 Albumin/Globulin Ratio 1.5 (1-3) 02/02/20 05:10 Triglycerides 170 mg/dL 01/26/20 02:29 Cholesterol 125 mg/dL 01/26/20 02:29 LDL Cholesterol 54 mg/dL 01/26/20 02:29 HDL Cholesterol 37.4 mg/dL 01/26/20 02:29 TSH 1.71 mcIU/mL (0.34-5.60) 01/26/20 09:40 01/26/20 01/26/20 01/26/20 02:29 05:30 08:35 Troponin I 0.76 H* 1.02 H* 2.01 H* 01/26/20 01/26/20 01/27/20 13:55 20:00 12:10 Troponin I 3.55 H* 3.33 H* 1.80 H* 01/30/20 01/31/20 01/31/20 04:30 18:56 22:44 Troponin I 1.30 H* 0.91 H* 0.95 H* 02/01/20 02/01/20 02/01/20 02:14 05:19 11:25 Troponin I 0.88 H* 0.82 H* 0.73 H* 02/01/20 02/02/20 02/02/20 20:40 05:10 09:33 Troponin I 4.92 H* 4.90 H* 4.50 H* Assessment/Plan 02.04.2020 3:49 PM: Pt seen and examined. D/w [employer] A Zhou. Stable CAD without CP. Vitals stable. Labs reviewed. Abdominal U/S today RP hematoma with reduction in size. ESRD on HD as per nephrology. Agree with current clinical assessment and plan of care/medical decisions.
[2020-02-04 10:24] LABS: INR 1.25 (0.82-1.09)
--- NOTE | 2020-02-04 15:39 | PN ---
Progress Note - Progress Note Date of Service: 02/04/20 Note: Inpatient Nephrology FU Note: Performed by Dr. Willi Cuenca, [facility] Nephrology 02/04/2020 ESRD on HD MWF. Last HD yesterday, went well. Today feels better. Known A flutter, recent NSTEMI s/p stenting last week Found to have a retroperitoneal hematoma, but improving and decreasing in size on imaging. Active Medications: Acetaminophen Al Hydrox/Mg Hydrox/Simethicone Apixaban Atorvastatin Buspirone Clopidogrel Finasteride Furosemide 40 BID Iron Sucrose 200 mg x 3 with HD Insulin Human Lispro Isosorbide Mononitrate Lisinopril Magnesium Oxide Metoprolol Succinate Minoxidil Nitroglycerin Ondansetron Pantoprazole Sertraline Terazosin Objective: .Vital Signs: Temp Pulse Resp BP Pulse Ox 98.0 F 54 19 136/59 95 02/04/20 11:15 02/04/20 11:15 02/04/20 11:15 02/04/20 11:15 02/04/20 11:15 .Heart: AF No murmur or gallop No LE Edema .Lungs: Clear to auscultation and percussion .Extremities: No LE edema Lt AVF Laboratory Reviewed and pertinent are: Sodium 134 mmol/L (135-145) L 02/04/20 05:47 Potassium 4.0 mmol/L (3.5-5.0) 02/04/20 05:47 BUN 47 mg/dL (6-24) H 02/04/20 05:47 Creatinine 5.10 mg/dL (0.67-1.17) H 02/04/20 05:47 Hemoglobin A1c 6.0 % (4.0-5.6) H 01/29/20 06:01 Calcium 8.8 mg/dL (8.6-10.3) 02/04/20 05:47 Magnesium 2.1 mg/dL (1.9-2.7) 02/04/20 05:47 AST 27 U/L (13-39) 02/02/20 05:10 ALT 45 U/L (7-52) 02/02/20 05:10 Triglycerides 170 mg/dL 01/26/20 02:29 Cholesterol 125 mg/dL 01/26/20 02:29 LDL Cholesterol 54 mg/dL 01/26/20 02:29 Assessment and Plan: ESRD HD tomorrow LACY on IV Fe He was informed about lab/radiology results & prognosis. All questions were answered. He was made part of the treatment plan.
[2020-02-04 16:09] VITALS: BP 136/64
--- NOTE | 2020-02-05 00:46 | DS ---
CC: Dr. Caban; Dr. Beltre * DISCHARGE SUMMARY: DATE OF ADMISSION: 01/26/20 DATE OF DISCHARGE: 02/04/20 PRIMARY CARE PROVIDER: Dr. Caban. 1ST PRESSMAN ON WEB PRESS: Dr. Beltre. PRINCIPAL DIAGNOSES: 1. Non-ST elevation myocardial infarction. 2. Atrial flutter. SECONDARY DIAGNOSES: 1. End-stage renal disease. 2. Hypertension. 3. Anemia of end-stage renal disease. 4. Type 2 diabetes. HOSPITAL COURSE: Mr. Watson is a 64-year-old male, who initially presented to the emergency room on 01/26/20 with complaints of right arm pain. This reminded him of prior [place]. He was found to be in rapid atrial flutter. He had EKG changes. His initial troponin was elevated at 0.76. The patient was seen in consultation by Dr. Salvador who noted that the EKG changes improved with the addition of metoprolol. It was recommended that he be started on Plavix 75 mg daily. It was also recommended that the patient undergo nuclear stress testing. This was done on 01/27/20. It revealed no evidence of stress-induced ischemia or presence of an infarct. There was akinesia and hypokinesia noted with low normal estimated left ventricular ejection fraction at stress and rest and elevated left ventricular end- diastolic volume. The patient on 01/29/20 developed a severe pain again. He underwent cardiac catheterization, which revealed relatively early in-stent restenosis of the ramus and proximal circumflex with progression of mid circumflex stenosis. The patient had a patent MARTINEZ to the LAD, patent free radial graft to the RPDA without restenosis. He underwent drug-eluting stent placement to the origin of the ramus and circumflex extending back into the left main in a kissing fashion and mid circumflex. The patient was monitored over the course of the next 2 days and on 01/31/20, he again developed right shoulder pain. On 02/01/20, the patient was again taken to the cardiac catheterization lab due to the development of recurrent severe right chest, shoulder, and arm pain with associated rapid atrial flutter. The patient was taken back to the cardiac catheterization lab. No in-stent restenosis or occlusion was noted. It was felt that the patient's pain was precipitated by a distal occluded RPL branch that likely occluded from competitive flow with revascularization of the left circumflex that has had collaterals to the vessel that had been previously mostly supplied by a radial graft. The patient was recommended to continue on Plavix and Eliquis. It is also recommended that the patient restart his Imdur, which was done. Since 02/01/20, the patient has been doing well. He has had no recurrent chest pain. There was noted drop in the patient's hemoglobin from 10 on admission down to a low of 7.2. He received 2 units of packed red blood cells. His hemoglobin on the day of discharge was up to 8.9. It is felt that the anemia is likely due to his end-stage renal disease. However, given the drop, he did undergo CT of the abdomen and pelvis, which revealed a small left retroperitoneal hematoma just anterior to the left iliacus muscle and lateral to the left external iliac artery. Additionally, a 10 mm cystic lesion in the head of the pancreas was identified. It is recommended that there is re-imaging every 2 years for 10 years. Followup abdominal ultrasound on 02/03/20 was performed to reevaluate the size of the retroperitoneal hematoma. The hematoma measured up to 2.2 x 0.8 x 1.8 cm for an estimated volume of 2.2 mL. Followup ultrasound on 02/04/20 revealed decrease in size of the retroperitoneal hematoma. Overall, the patient is feeling quite well. He has no further chest pain, no shortness of breath. Discharge instructions were provided to the patient including post cath instructions. Activity restrictions have been outlined for the patient. The patient will continue on Plavix and Eliquis given his atrial flutter and newly placed stents. Additionally, he will continue on Zetia, which is a new medication initiated due to the fact that the patient had been forming plaque despite being on high-dose Crestor. He remains on Imdur 120 mg twice daily, lisinopril 5 mg daily, and metoprolol XL 25 mg daily. A prescription for nitroglycerin has been also provided to the patient. The patient will need to follow up with Dr. Beltre on 02/11/20 at 2:20 p.m. Again, the patient has been instructed to return to the emergency room if he develops any recurrent chest or arm pain, shortness of breath, or any other concerning symptoms. The patient receives his hemodialysis Saturday, Saturday, Saturday. He will present tomorrow for his usually scheduled outpatient appointment. The patient' s hemoglobin will need to be monitored intermittently by his conditioner tumbler. Again, he is on both Eliquis and Plavix though there is no gross evidence of bleeding outside of the very small retroperitoneal hematoma, which appears to be improving. PHYSICAL EXAMINATION: On the day of discharge, the patient is awake, alert, and oriented; sitting up in a chair, in no acute distress. Cardiac exam revealed a normal S1, S2 with an irregular rhythm. Heart rate was controlled. There was no lower extremity edema. Lungs are clear to auscultation bilaterally. Abdomen was soft, nontender, nondistended. FOLLOWUP CONCERNS: The patient is being discharged home today 02/04/20. ACTIVITY LEVEL: Per post cath instructions. CONDITION ON DISCHARGE: Stable. DIET: Heart healthy. The patient will need to follow up with Dr. Beltre on 02/11/20. An appointment should be made with Dr. Caban for the next 4 to 7 days. Again, the patient will need followup imaging of his pancreas to evaluate the 10 mm cystic lesion in the head of the pancreas. TIME SPENT: Thirty-five minutes was spent discharging this patient. [id number]/[facility] #: [id number] MTDD
[2020-02-05] MEDS ORDERED: Iron Sucrose* 200 MG in NS 0.9% 100 ML* 100 ML IVPB ONE (14:00)
[2020-02-08] MEDS ORDERED: Iron Sucrose* 200 MG in NS 0.9% 100 ML* 100 ML IVPB ONE (14:00)
== END 2020-02-04 18:45 | disposition home or self-care (01) | DRG 246 ==
LOC: ED 02:22 → ICU 03:43 → MEDTELE 01-28 14:11 → ICU 01-29 18:49 → MEDTELE 01-30 12:04 → ICU 02-01 10:12 → MEDTELE 02-02 22:56
PROVIDERS: ADMIT Internal Medicine; ATTEND Hospitalist
PROC: 5A1D70Z Performance of Urinary Filtration, Intermittent, Less than 6 Hours Per Day (ICD-10-PCS; 2020-01-27)
PROC: B211YZZ Fluoroscopy of Multiple Coronary Arteries using Other Contrast (ICD-10-PCS; 2020-01-29)
PROC: B218YZZ Fluoroscopy of Left Internal Mammary Bypass Graft using Other Contrast (ICD-10-PCS; 2020-01-29)
PROC: 027235Z Dilation of Coronary Artery, Three Arteries with Two Drug-eluting Intraluminal Devices, Percutaneous Approach (ICD-10-PCS; principal; 2020-01-29 14:45)
PROC: B211YZZ Fluoroscopy of Multiple Coronary Arteries using Other Contrast (ICD-10-PCS; 2020-02-01)
PROC: B21FYZZ Fluoroscopy of Other Bypass Graft using Other Contrast (ICD-10-PCS; 2020-02-01)
PROC: B218YZZ Fluoroscopy of Left Internal Mammary Bypass Graft using Other Contrast (ICD-10-PCS; 2020-02-01)
PROC: 30233N1 Transfusion of Nonautologous Red Blood Cells into Peripheral Vein, Percutaneous Approach (ICD-10-PCS; 2020-02-02)
DX: I21.4 Non-ST elevation (NSTEMI) myocardial infarction (principal); N18.6 End stage renal disease; K66.1 Hemoperitoneum; I50.32 Chronic diastolic (congestive) heart failure; I48.92 Unspecified atrial flutter; I13.2 Hypertensive heart and chronic kidney disease with heart failure and with stage 5 chronic kidney disease, or end stage renal disease; E87.1 Hypo-osmolality and hyponatremia; I47.2 Ventricular tachycardia; K92.2 Gastrointestinal hemorrhage, unspecified; K86.2 Cyst of pancreas; E83.51 Hypocalcemia; I25.10 Atherosclerotic heart disease of native coronary artery without angina pectoris; E78.5 Hyperlipidemia, unspecified; E11.22 Type 2 diabetes mellitus with diabetic chronic kidney disease; K21.9 Gastro-esophageal reflux disease without esophagitis; E78.00 Pure hypercholesterolemia, unspecified; M19.042 Primary osteoarthritis, left hand; M19.041 Primary osteoarthritis, right hand; M19.012 Primary osteoarthritis, left shoulder; M19.011 Primary osteoarthritis, right shoulder; F32.9 Major depressive disorder, single episode, unspecified; F41.9 Anxiety disorder, unspecified; I87.8 Other specified disorders of veins; R42 Dizziness and giddiness; G89.29 Other chronic pain; I69.311 Memory deficit following cerebral infarction; M75.101 Unspecified rotator cuff tear or rupture of right shoulder, not specified as traumatic; I49.3 Ventricular premature depolarization; R33.9 Retention of urine, unspecified; D69.6 Thrombocytopenia, unspecified; D50.9 Iron deficiency anemia, unspecified; I08.3 Combined rheumatic disorders of mitral, aortic and tricuspid valves; I27.20 Pulmonary hypertension, unspecified; I25.82 Chronic total occlusion of coronary artery; D63.1 Anemia in chronic kidney disease; G47.33 Obstructive sleep apnea (adult) (pediatric); Z95.1 Presence of aortocoronary bypass graft; Z95.5 Presence of coronary angioplasty implant and graft; Z99.89 Dependence on other enabling machines and devices; Z72.89 Other problems related to lifestyle; Z88.0 Allergy status to penicillin; Z88.2 Allergy status to sulfonamides; Z86.74 Personal history of sudden cardiac arrest; I25.2 Old myocardial infarction; Z95.820 Peripheral vascular angioplasty status with implants and grafts; Z85.828 Personal history of other malignant neoplasm of skin; Z99.2 Dependence on renal dialysis
CPT/HCPCS: 36415; 70450; 71045; 74176; 76705; 78452; 80048; 80053; 80061; 82272; 82550; 82553; 82565; 82728; 83036; 83540; 83550; 83735; 83874; 83880; 84100; 84439; 84443; 84481; 84484; 84520; 85025; 85027; 85049; 85347; 85610; 85730; 86850; 86900; 86901; 86922; 87040; 87641; 90935; 93005; 93017; 93306; 93455; 96374; 99156; 99157; 99285; A9270-GY; A9502; C1725; C1760; C1769; C1876; C1887; C9600-LC; C9601-RI; G0257; J0280; J0583; J1644; J1756; J2250; J2310; J2785; J3010; J3490; P9040; Q5106

== ENCOUNTER 2020-02-08 05:40 | Inpatient (IN) | payer MEDICARE ==
--- OUTSIDE RECORDS SUMMARY | 2020-02-08 05:51 | XMS REPORT | Continuity of Care Document ---
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 Medicine Problems Active Problems Provider Date Chronic ischemic heart disease Aj Hannon M.D., [place] [facility] Onset: 2013 Benign essential hypertension Aj Hannon M.D., [facility] Onset: 2013 Hyperlipidemia Aj Hannon M.D., [place] [facility] Onset: 08/25/2014 Essential hypertension Aj Hannon M.D., [facility] Onset: 03/30/2015 Obstructive sleep apnea syndrome Kelly Guzman DNP, RN, [facility] Onset: 06/2016 Note: hypopneas, elevated RDI Hypersomnia Kelly Guzman DNP, RN, Onset: 06/01/2016 [facility] Atherosclerotic heart disease of Aj Hannon M.D., FACC, [facility]SCAI Onset: 2016 eek coronary artery without angina pectoris Preoperative cardiovascular Aj Hannon M.D., FACC, FSCAI Onset: 04/02/2018 examination Atherosclerosis of coronary artery Aj Hannon M.D., FACC, FSCAI Onset: 07/2018 bypass graft(s), unspecified, with other forms of angina pectoris 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.D., FACC, FSCAI Onset: coronary artery bypass graft(s) with unspecified angina pectoris Arthralgia of the upper arm Rere Salazar MD Onset: 09/10/2019 Disorder of shoulder Rere Salazar MD Onset: 09/10/2019 Social History Type Date Description Comments Sex Unknown Tobacco Use Start: Unknown Never Smoked Cigarettes Smoking Status Reviewed: 09/10/19 Never Smoked Cigarettes ETOH Use Occasionally consumes alcohol Tobacco Use Start: Unknown Patient has never smoked Recreational Drug Use Denies Drug Use Exercise Type/Frequency Exercises rarely Allergies, Adverse Reactions, Alerts Active Allergies Reaction Severity Comments Date Bactrim Rash 02/16/2014 Latex Urticaria 08/11/2018 Medications Active Medications SIG Qnty Indications Ordering Date Provider Hydralazine HCL Take one by mouth 270tabs I25.2 Lg SBrandon 08/11/2019 100mg three times daily Beltre, DO FACC Tablets Diclofenac Sodium apply 1 gram 3-4 200gm M75.41 Rere Salazar, 07/23/2019 1% times a day to Gel painful area Rosuvastatin Calcium 1 by mouth every 90tabs Lg SBrandon 07/20/2019 day Beltre, DO FACC 40mg Tablets Clopidogrel Bisulfate 1 by mouth every 90tabs Lg S. 07/20/2019 day Beltre, DO FACC 75mg Tablets Metoprolol Succinate 1 by mouth every 90tabs Lg S. 07/20/2019 ER day Beltre, DO FACC 25mg Tablets ER 24HR Minoxidil Take one by mouth Lg SBranodn 07/13/2019 2.5mg Tablets twice daily Beltre, DO FACC Amlodipine Besylate 1 by mouth every Lg S. 07/13/2019 Am and 1/2 in the Beltre, DO FACC 10mg Tablets evening Furosemide 1 by mouth every Aj Johnfek, 03/31/2018 40mg Tablets day Am /PM M.D., FACC, FSCAI Isosorbide 2 by mouth every 180tabs Lg SBrandon 10/31/2016 Mononitrate ER day ( taken in the Beltre, DO FACC 120mg am) Tablets ER 24HR Nitrostat 1 tab sublingual 25tabs Lg SBrandon 09/09/2014 0.4mg Tablets as needed every 5 Beltre, DO FACC Sub mins x 3 Ammonium Lactate apply once daily Unknown 12% Lotion Proair HFA as needed Narendra, 108(90Base) Marialuisa Burns mcg/Act Aerosol Dialyvite 800-Zinc 15 1 by mouth every Unknown day 0.8mg Tablets Famotidine 1 tab by mouth Unknown 20mg Tablets every other day Terazosin HCL 1 by mouth every Unknown 5mg day Capsules Lisinopril take 1 tablet by 90tabs Lg S. 5mg Tablets mouth once daily Beltre, DO FACC Eq Aspirin Adult Low Unknown Dose 81mg Tablets DR Fish Oil 1 cap po three Unknown 1080mg times daily Lidocaine applied to poly Unknown Hydrochloride catheter as needed Gel Magnesium Oxide 1 by mouth every Unknown 400mg day Am Tablets Vitamin D3 1 by mouth every Unknown 2000Unit day Am Tablets Sertraline HCL 1 by mouth evening 90tabs Lg S. 50mg with meal Beltre, DO FACC Tablets Pantoprazole Sodium 1 by mouth every [...] tab po daily PM Unknown 5mg Tablets Medications Administered in Office Medication SIG Qnty Indications Ordering Provider Date Triamcinolone (Kenalog) Rere Salazar MD 07/23/2019 Injection Immunizations CPT Code Status Date Vaccine Lot # [id number] Given 08/27/2016 Influenza Virus Vaccine, Quadrivalent, Split, Preservative Free 32095 Given 08/27/2016 Influenza Virus Vaccine, Quadrivalent, Split, Preservative Free Vital Signs Date Vital Result Comment 09/10/2019 3:45pm Height 72 inches 6'0" Weight 214.00 lb Heart Rate 69 /min Body Temperature 96.4 F Pain Level 4 O2 % BldC Oximetry 97 % BMI (Body Mass Index) 29.0 kg/m2 07/23/2019 3:30pm Height 72 inches 6'0" Weight 218.00 lb Heart Rate 74 /min BP Systolic 138 mmHg BP Diastolic 70 mmHg Body Temperature 98.6 F Pain Level 8 BMI (Body Mass Index) 29.6 kg/m2 Results Test Acquired Date Facility Test Result H/L Range Note Influenza A & B 01/26/2020 [facility] Flu AB (SEE NOTE) [address] [place] [address] [phone] Influenza A Molecular Negative Negative Influenza B Molecular Negative Negative 2 Laboratory test 01/26/2020 [facility] MRSA Screen SEE RESULT [address] [place] [address] [phone] 1 Suboptimal collection technique may reduce sensitivity of test. Refer to the [facility] Test Catalog for collection information: [email or web address] As with all diagnostic procedures, the laboratory results obtained should be used in conjunction with other clinical information available to the physician, including confirmation by another method, as applicable. 2 Plastics Repairer: [id number] 3 SEE RESULT BELOW Name: SCOTT FELIZ : [address]: Eric Gibson MD Acct: [id number] Unit: [id number] AGE: 64 Location: ICU [id number] Re01/26/20 SEX: M Status: ADM IN SPEC: [id number] KOMAL: 01/26/20-[address]: Ashley Bunn DO REQ: [id number] RECD: 01/26/20 STATUS: COMP ZAID DR: Carie Caban MD PC _ SOURCE: NASAL SPDESC: ORDERED: MRSA PCR-Nasal COMMENTS: Verbal to [id number] by [email or web address] at 0755 on 01/26/20. Results read back accurately. Procedure Result Reported Site MRSA PCR (Nasal) Final 01/26/20- 0812 ML Organism 1 MRSA NOT DETECTED As with all diagnostic procedures, the laboratory results obtained should be used in conjunction with other clinical information available to the physician, including confirmation by another method, as applicable. * [facility] - Main Lab . END OF REPORT DEPARTMENT OF PATHOLOGY, [address] [place] [address] Bruno Randall M.D. Director [facility] # [id number] Procedures Date Code Description Status 01/27/2020 65542 Hemodialysis, One Evaluation Completed 01/26/2020 51915 ECHO Transthorasic Realtime 2D W Doppler & Color Flow Hosp Completed 01/23/2020 99158 [facility] 20Yrs 4/More Xuav-Ay-Ogim Visits Per Month Completed 12/25/2019 59341 [facility] 20Yrs 4/More Skwf-Mz-Kxsw Visits Per Month Completed 11/24/2019 40140 [facility] 20Yrs 4/More Imfi-Bo-Wfgh Visits Per Month Completed Medical Devices Description No Information Available Encounters Type Date Location Provider Dx Diagnosis Office Visit 01/28/2020 [facility] Lg Beltre, I21.4 Non-St elevation 10:57a Of [facility] DO FACC (Nstemi) myocardial infarction I48.92 Unspecified atrial flutter N18.6 End stage renal disease I10 Essential (primary) hypertension Office Visit 01/26/2020 1:41p [facility] Nephrology Brenda Sotelo, N18.6 End stage renal MD disease Office Visit 09/10/2019 3:30p [facility] Rere Salazar M75.41 Impingement at [facility] MD syndrome of right shoulder M25.521 Pain in right elbow Assessments Date Code Description Provider 01/28/2020 I21.4 Non-St elevation (Nstemi) myocardial Lg Beltre, DO FACC infarction 01/28/2020 I48.92 Unspecified atrial flutter Lg Beltre DO FACC 01/28/2020 N18.6 End stage renal disease Lg Beltre DO FACC 01/28/2020 I10 Essential (primary) hypertension Lg Beltre DO FACC 01/27/2020 N18.6 End stage renal disease Brenda Sotelo MD 01/26/2020 I21.9 Acute myocardial infarction, unspecified Micheal Salvador M.D. 01/26/2020 N18.6 End stage renal disease Brenda Sotelo MD 01/23/2020 N18.6 End stage renal disease Brenda Sotelo MD 12/25/2019 N18.6 End stage renal disease Brenda Sotelo MD 11/24/2019 N18.6 End stage renal disease Luciana Cuenca MD 09/10/2019 M75.41 Impingement syndrome of right shoulder Rere Salazar MD 09/10/2019 M25.521 Pain in right elbow Rere Salazar MD Plan of Treatment Future Appointment(s):02/11/2020 2:40 pm - Lg Beltre DO FACC at [facility]09/10/2019 - Rere Salazar MDM75.41 Impingement syndrome of right shoulderNew Therapy:Physical TherapyFollow up:Follow up: 5 bgpcgQ50.521 Pain in right elbowNew Therapy:Physical Therapy Functional Status Description No Information Available Mental Status Description No Information Available Referrals Description No Information Available
--- OUTSIDE RECORDS SUMMARY | 2020-02-08 05:51 | XMS REPORT | Continuity of Care Document ---
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 Medicine Problems Active Problems Provider Date Chronic ischemic heart disease Aj Hannon M.D., [facility] Onset: 2013 Benign essential hypertension Aj Hannon M.D., [place] Onset: 2013 Hyperlipidemia Aj Hannon M.D., FACC, FSCAI Onset: 08/25/2014 Essential hypertension Aj Hannon M.D., [place] [facility] Onset: 03/30/2015 Obstructive sleep apnea syndrome Kelly Guzman DNP, RN, [facility] Onset: 06/2016 Note: hypopneas, elevated RDI Hypersomnia Kelly Guzman DNP RN, Onset: 06/01/2016 [facility] Atherosclerotic heart disease of Aj Hannon M.D., [place] Onset: 2016 [place] coronary artery without angina pectoris Preoperative cardiovascular [...] Lg SBrandon 08/11/2019 100mg three times daily Alexsander, DO FACC Tablets Diclofenac Sodium apply 1 gram 3-4 200gm M75.41 Rere Salazar, 07/23/2019 1% times a day to MD Gel painful area Rosuvastatin Calcium 1 by mouth every 90tabs Lg SBrandon 07/20/2019 day Beltre, DO FACC 40mg Tablets Clopidogrel Bisulfate 1 by mouth every 90tabs Lg SBrandon 07/20/2019 day Beltre, DO FACC 75mg Tablets Metoprolol Succinate 1 by mouth every 90tabs Lg SBrandon 07/20/2019 ER day Beltre, DO FACC 25mg Tablets ER 24HR Minoxidil Take one by mouth Lg SBrandon 07/13/2019 2.5mg Tablets twice daily Beltre, DO FACC Amlodipine Besylate 1 by mouth every Lg SBrandon 07/13/2019 Am and 1/2 in the Beltre, [...] Unknown 12% Lotion Proair HFA as needed Narenrda, 108(90Base) Marialuisa Burns mcg/Act Aerosol Dialyvite 800-Zinc [...] CPT Code Status Date Vaccine Lot # 63371 Given 08/27/2016 Influenza Virus Vaccine, Quadrivalent, Split, Preservative Free 41025 Given 08/27/2016 Influenza Virus Vaccine, Quadrivalent, Split, [...] Range Note Influenza A & B 01/26/2020 [facility] Flu AB (SEE NOTE) [address] [place] [address] [phone] Influenza A Molecular Negative Negative Influenza B Molecular Negative Negative 2 Laboratory test 01/26/2020 [facility] MRSA Screen SEE RESULT [address] [place] [address] [phone] Suboptimal collection technique may reduce sensitivity of test. Refer to the [facility] Test Catalog for collection information: [email or web address] As with all diagnostic procedures, the laboratory results obtained should be used in conjunction with other clinical information available to the physician, including confirmation by another method, as applicable. 2 Inspector Canned Food Reconditioning: [id number] 3 SEE RESULT BELOW Name: SCOTT FELIZ : [address]: Eric Gibson MD Acct: [id number] Unit: [id number] AGE: 64 Location: ICU [id number] Re01/26/20 SEX: M Status: ADM IN SPEC: [id number] KOMAL: 01/26/20-[address]: Ashley Bunn DO REQ: [id number] RECD: 01/26/20 STATUS: COMP ZAID DR: Carie Caban MD PC _ SOURCE: NASAL SPDESC: ORDERED: MRSA PCR-Nasal COMMENTS: Verbal to [id number] by [id number] at 0755 on 01/26/20. Results read back accurately. Procedure Result Reported Site MRSA PCR (Nasal) Final 01/26/20- 08 ML Organism 1 MRSA NOT DETECTED As with all diagnostic procedures, the laboratory results obtained should be used in conjunction with other clinical information available to the physician, including confirmation by another method, as applicable. * [facility] - Main Lab . END OF REPORT DEPARTMENT OF PATHOLOGY, [address] [place] [address] Bruno Randall M.D. Director [facility] # [id number] Procedures Date Code Description Status 01/27/2020 80577 Hemodialysis, One Evaluation Completed 01/23/2020 38116 [facility] 20Yrs 4/More Geke-Ya-Jbsh Visits Per Month Completed 12/25/2019 32379 [facility] 20Yrs 4/More Wdyu-Bl-Tcql Visits Per Month Completed 11/24/2019 77508 [facility] 20Yrs 4/More Gxbc-Vu-Fwxv Visits Per Month Completed Medical Devices Description No Information Available Encounters Type Date Location Provider Dx Diagnosis Office Visit 09/10/2019 [facility] Rere Salazar MD M75.41 Impingement 3:30p at [place] syndrome of right shoulder M25.521 Pain in right elbow Assessments Date Code Description Provider 01/27/2020 N18.6 End stage renal disease Brenda Sotelo MD 01/26/2020 N18.6 End stage renal disease Brenda Sotelo MD 01/23/2020 N18.6 End stage renal disease Brenda Sotelo MD 12/25/2019 N18.6 End stage renal disease Brenda Sotelo MD 11/24/2019 N18.6 End stage renal disease Luciana Cuenca MD 09/10/2019 M75.41 Impingement syndrome of right shoulder Rere Salazar MD 09/10/2019 M25.521 Pain in right elbow Rere Salazar MD Plan of Treatment 09/10/2019 - Rere Salazar MDM75.41 Impingement syndrome of right shoulderNew Therapy:Physical TherapyFollow up:Follow up: 5 iduegY80.521 Pain in right elbowNew Therapy:Physical Therapy Functional Status Description No Information Available Mental Status Description No Information Available Referrals Description No Information Available
--- OUTSIDE RECORDS SUMMARY | 2020-02-08 05:51 | XMS REPORT | Continuity of Care Document ---
:1955 External Reference #:[id number] Author Name Mihceal Salvador M.D. 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 Medicine Problems Active Problems Provider Date Chronic ischemic heart disease Aj Hannon M.D., GIOVANA LUO Onset: 2013 Benign essential hypertension Aj Hannon M.D., GIOVANA LUO Onset: 2013 Hyperlipidemia Aj Hannon M.D., GIOVANA LUO Onset: 08/25/2014 Essential hypertension Aj Hannon M.D., GIOVANA LUO Onset: 03/30/2015 Obstructive sleep apnea syndrome Kelly Guzman DNP, RN, [facility] Onset: 06/2016 Note: hypopneas, elevated RDI Hypersomnia Kelly Guzman DNP, RN, Onset: 06/01/2016 [facility] Atherosclerotic heart disease of Aj Hannon M.D., FACC, FSCAI Onset: 2016 [place] coronary artery without angina pectoris Preoperative cardiovascular [...] 24HR Nitrostat 1 tab sublingual 25tabs Lg S. 09/09/2014 0.4mg Tablets as needed every 5 [...] CPT Code Status Date Vaccine Lot # [id number] Given 08/27/2016 Influenza Virus Vaccine, Quadrivalent, Split, Preservative Free 47073 Given 08/27/2016 Influenza Virus Vaccine, Quadrivalent, Split, [...] Range Note Influenza A & B 01/26/2020 [facility] Flu AB (SEE NOTE) [address] [place] [address] [phone] Influenza A Molecular Negative Negative Influenza B Molecular Negative Negative 2 Laboratory test 01/26/2020 [facility] MRSA Screen SEE RESULT [address] [place] [address] [phone] 1 Suboptimal collection technique may reduce sensitivity of test. Refer to the [facility] Test Catalog for collection information: [email or web address] As with all diagnostic procedures, the laboratory results obtained should be used in conjunction with other clinical information available to the physician, including confirmation by another method, as applicable. 2 Sediment Remediation Consultant: [id number] 3 SEE RESULT BELOW Name: SCOTT FELIZ : [address]: Eric Gibson MD Acct: [id number] Unit: [id number] AGE: 64 Location: ICU [id number] Re01/26/20 SEX: M Status: ADM IN SPEC: [id number] KOMAL: 01/26/20-[address]: Ashley Bunn DO REQ: [id number] RECD: 01/26/20 STATUS: COMP OTHR DR: Carie Caban MD PC _ SOURCE: NASAL SPDESC: ORDERED: MRSA PCR-Nasal COMMENTS: Verbal to [id number] by [id number] at 0755 on 01/26/20. Results read back [...] . END OF REPORT DEPARTMENT OF PATHOLOGY, [address] [place] [address] Bruno Randall M.D. Director [facility] # [id number] Procedures Date Code Description Status 01/27/2020 58406 Hemodialysis, One Evaluation Completed 01/26/2020 50681 ECHO Transthorasic Realtime 2D W Doppler & Color Flow Hosp Completed 01/23/2020 66513 [facility] 20Yrs 4/More Niju-Tw-Ylsu Visits Per Month Completed 12/25/2019 12343 [facility] 20Yrs 4/More Nrup-Eo-Zwxq Visits Per Month Completed 11/24/2019 71519 [facility] 20Yrs 4/More Vipd-Qp-Reje Visits Per Month Completed Medical Devices Description No Information Available Encounters Type Date Location Provider Dx Diagnosis Office Visit 01/26/2020 [facility] Nephrology Brenda Sotelo MD N18.6 End stage renal 1:41p disease Office Visit 09/10/2019 [facility] Rere Salazar MD M75.41 Impingement 3:30p at [place] syndrome of right shoulder M25.521 Pain in [...] right shoulderNew Therapy:Physical TherapyFollow up:Follow up: 5 [id number] Pain in right elbowNew Therapy:Physical Therapy Functional Status Description No Information Available Mental Status Description No Information Available Referrals Description No Information Available
--- OUTSIDE RECORDS SUMMARY | 2020-02-08 05:51 | XMS REPORT | Continuity of Care Document ---
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 [phone] Medicine Problems Active Problems Provider Date Chronic ischemic heart disease Aj Hannon M.D., [facility] Onset: 2013 Benign essential hypertension Aj Hannon M.D., [facility] Onset: 2013 Hyperlipidemia Aj Hannon M.D., FACGIOVANA Onset: 08/25/2014 Essential hypertension Aj Hannon M.D., [facility] Onset: 03/30/2015 Obstructive sleep apnea syndrome Kelly Guzman DNP, RN, [facility] Onset: 06/2016 Note: hypopneas, elevated RDI Hypersomnia Kelly Guzman DNP RN, Onset: 06/01/2016 [facility] Atherosclerotic heart disease of Aj Hannon M.D., GIOVANA LUO Onset: 2016 [place] coronary artery without angina pectoris Preoperative cardiovascular [...] Take one by mouth 270tabs I25.2 Lg Michael 08/11/2019 100mg three times daily Beltre, DO [...] S. 5mg Tablets mouth once daily Beltre, FACC Eq Aspirin Adult Low Unknown Dose [...] CPT Code Status Date Vaccine Lot # [id number] Given 08/27/2016 Influenza Virus Vaccine, Quadrivalent, Split, Preservative Free 84359 Given 08/27/2016 Influenza Virus Vaccine, Quadrivalent, Split, [...] Range Note Influenza A & B 01/26/2020 [facility] Flu AB (SEE NOTE) [address] [place] [address] [phone] Influenza A Molecular Negative Negative Influenza B Molecular Negative Negative 2 Laboratory test 01/26/2020 [facility] MRSA Screen SEE RESULT [address] [place] [address] [phone] 1 Suboptimal collection technique may reduce sensitivity of test. Refer to the [facility] Test Catalog for collection information: [email or web address] As with all diagnostic procedures, the laboratory results obtained should be used in conjunction with other clinical information available to the physician, including confirmation by another method, as applicable. 2 Nurse Case Manager: [id number] 3 SEE RESULT BELOW Name: SCOTT FELIZ : [address]: Eric Gibson MD Acct: [id number] Unit: [id number] AGE: 64 Location: ICU [id number] Re01/26/20 SEX: M Status: ADM IN SPEC: [id number] KOMAL: 01/26/20-[address]: Ashley Bunn DO REQ: [id number] RECD: 01/26/20 STATUS: COMP ZAID DR: Carie Caban MD PC _ SOURCE: NASAL SPDESC: ORDERED: MRSA PCR-Nasal COMMENTS: Verbal to [id number] by [id number] at 0755 on 03/03/20. Results read back accurately. Procedure Result Reported Site MRSA PCR (Nasal) Final 01/26/20- 08 ML Organism 1 MRSA NOT DETECTED As with all diagnostic procedures, the laboratory results obtained should be used in conjunction with other clinical information available to the physician, including confirmation by another method, as applicable. * [facility] - Main Lab . END OF REPORT DEPARTMENT OF PATHOLOGY, [address] [place] [address] Bruno Randall M.D. Director [facility] # [id number] Procedures Date Code Description Status 01/27/2020 25418 Hemodialysis, One Evaluation Completed 01/23/2020 88228 [facility] 20Yrs 4/More Teds-Et-Ujyl Visits Per Month Completed 12/25/2019 22834 [facility] 20Yrs 4/More Rydn-Ew-Tfeh Visits Per Month Completed 11/24/2019 94162 [facility] 20Yrs 4/More Mqxe-Ht-Wcoh Visits Per Month Completed Medical Devices Description No Information Available Encounters Type Date Location Provider Dx Diagnosis Office Visit 01/26/2020 [facility] Nephrology Brenda Sotelo MD N18.6 End stage renal 1:41p disease Office Visit 09/10/2019 [facility] Rere Salazar MD M75.41 Impingement 3:30p at [place] syndrome of right shoulder M25.521 Pain in [...] MD Plan of Treatment 09/10/2019 - Rere Salazar, MDM75.41 Impingement syndrome of right shoulderNew Therapy:Physical TherapyFollow up:Follow up: 5 [id number] Pain in right elbowNew Therapy:Physical Therapy Functional Status Description No Information Available Mental Status Description No Information Available Referrals Description No Information Available
[2020-02-08 06:17] LABS: ABS Eosinophils 0.1 10^3/ul (0-0.6); ABS Lymphocytes 0.5 10^3/ul (1.0-4.8); ABS Monocytes 0.6 10^3/ul (0-0.8); ABS Neutrophils 8.2 10^3/ul (1.5-7.7); Eosinophil % 1.2 %; Hematocrit 26 % (42-52); Hemoglobin 9.1 g/dL (14.0-18.0); Lymphocyte % 5.6 %; Mean Corpuscular HGB Conc 35 g/dL (31-36); Mean Corpuscular Hemoglobin 32 pg (27-31); Mean Corpuscular Volume 91 fL (80-94); Mean Platelet Volume 9.1 fL (7.4-10.4); Platelet Count 246 10^3/uL (150-450); Red Blood Count 2.86 10^6 /uL (4.18-5.48); Red Cell Distribution Width 15 % (10-15); White Blood Count 9.4 10^3/uL (3.5-10.8)
[2020-02-08 06:21] LABS: INR 1.32 (0.82-1.09)
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
[2020-02-08 06:33] LABS: ALT 51 U/L (7-52); Albumin 3.7 g/dL (3.2-5.2); Albumin/Globulin Ratio 1.4 (1-3); Alkaline Phosphatase 159 U/L (34-104); BUN/Creatinine Ratio 9.6 (8-20); Blood Urea Nitrogen 63 mg/dL (6-24); CO2 Carbon Dioxide 23 mmol/L (22-32); Calcium 8.8 mg/dL (8.6-10.3); Chloride 98 mmol/L (101-111); EGFR African American 10.3 (>60); EGFR Non-African American 8.5 (>60); Globulin 2.7 g/dL (2-4); Glucose 117 mg/dL (70-100); Sodium 134 mmol/L (135-145); Total Protein 6.4 g/dL (6.4-8.9)
[2020-02-08 06:40] LABS: Anion Gap 13 mmol/L (2-11); Troponin I 0.38 ng/mL (<0.03)
[2020-02-08] MEDS ORDERED: Nitroglycerin TAB 0.4 MG* 0.4 MG TAB SL PRN (08:54)
[2020-02-08] MEDS ORDERED: Furosemide IV* 10 MG/ML VIAL (40 MG) IV SLOW PU ONE (08:56)
[2020-02-08] MEDS ORDERED: Ondansetron INJ* 2 MG/ML VIAL IV PRN (09:00)
[2020-02-08] MEDS ORDERED: Acetaminophen TAB* 325 MG PO PRN (09:00)
[2020-02-08] MEDS: busPIRone TAB* 10 MG PO SCH ×2 (11:09→20:22)
[2020-02-08] MEDS: Apixaban* 2.5 MG TAB PO SCH ×2 (11:09→20:23)
[2020-02-08] MEDS: MinoXIDil TAB* 2.5 MG TAB PO SCH ×2 (11:09→20:22)
[2020-02-08] MEDS: Furosemide TAB* 40 MG PO SCH ×2 (11:09→20:23)
--- NOTE | 2020-02-08 11:59 | HP ---
CC: Dr. Caban; Dr. Beltre * ADMISSION HISTORY AND PHYSICAL: DATE OF ADMISSION: 02/08/20 PRIMARY CARE PROVIDER: Dr. Caban. SHOEMAKER CUSTOM: Dr. Beltre. HEALTH CARE PROXY: His . CODE STATUS: Full. Discussed with the patient and his . History obtained from interview of the patient and his , review of past medical records. RELIABILITY: Good. CHIEF COMPLAINT: Shortness of breath and right arm pain. HISTORY OF PRESENT ILLNESS: A 64-year-old man with a very complicated past cardiac history. Please see Dr. Salvador's note or consult from 01/26/20 for additional details for what is to follow. The patient was recently admitted to the hospital from 01/26/20 to 02/04/20 after presenting with what was thought to be a STEMI. However, on further evaluation, Dr. Patel thought it to represent an NSTEMI. He underwent a catheterization at that time after a stress test, placement of stent on 01/29/20 for an in-stent restenosis. Underwent a repeat left heart cath on 02/01/20 with recurrent pain; however, no intervention at that time. He has a history of coronary artery disease and remote bypass 2003 complicated by PTCA/MARGARET to the proximal portion of the free right radial artery, graft to PDA in May of 2009, and subsequent complex stenting to the ramus and proximal left circumflex in June 2019. During his last hospital stay, he was also noted to have new atrial flutter. His aspirin was changed to Plavix and he was started on Eliquis. He was noted to have a small left retroperitoneal hematoma for which he received packed red blood cells for. He was discharged home after multiple interventions, feeling well; however, the night after returning home he had increased shortness of breath noted with increased orthopnea. He was sleeping in a chair, positive PND, rare cough. He did have nausea without vomiting. Several episodes of loose stools. He was still taking p.o. food and water. Did not note any change in his urine output. His shortness of breath was relatively constant limiting his ambulation and becoming short of breath at rest with associated fatigue and weakness. The night prior to presentation at 3 a.m. he woke with right arm feeling achy and a right chest "discomfort," lasted until his arrival in the emergency room. He did take nitro sublingual 2 times at home without relief. Of note, the patient had hemodialysis 3 days prior to presentation. At that time, it was recommended that he increase his hemodialysis the subsequent week, which is this week, to 4 times, indicating there may have been some element of volume overload at that time. Of note, the patient does have lower extremity edema to be described further below, which he indicates is unusual for him. He does deny any fevers, chills, night sweats, headache, pain, bright red blood per rectum, dizziness, loss of consciousness, diaphoresis, recent travel. Other review of systems is positive for orthopnea, PND, increased shortness of breath, dyspnea on exertion, nausea, loose stool, fatigue and weakness, and pain in his right arm and chest as indicated above. PAST MEDICAL HISTORY: Includes: 1. History of CVA. 2. CABG with in-stent restenosis. 3. PFO closure. 4. GI bleed, on NSAIDs. 5. End-stage renal disease Saturday, Saturday, Saturday. 6. Hemodialysis. 7. Carotid artery disease. 8. Intermittent thrombocytopenia. 9. Pulmonary hypotension. 10. HOWARD. 11. He had a small retroperitoneal hematoma on his last hospital stay. 12. He has urinary retention with a chronic Joe in place. 13. Diastolic heart failure. He was noted to be intolerant to Brilinta therapy. 14. History of melanoma. 15. Mild to moderate mitral insufficiency. 16. Type 2 diabetes. 17. Anemia of chronic disease. 18. Right fistula graft for dialysis. HOME MEDICATIONS: Unchanged from last admission includin. Amlodipine 5 in the evening. 2. Nitroglycerin sublingual as needed. 3. Ammonium lactate 12% topically as needed. 4. Vitamin B complex with folic acid in the morning. 5. Pepcid 20 mg every other day. 6. Hydes-3 1000 mg 3 times a day. 7. Minoxidil 2.5 mg twice daily. 8. Metoprolol succinate 25 mg daily. 9. Imdur 240 mg in the morning. 10. Lisinopril 5 mg in the morning. 11. Furosemide 40 mg twice daily. 12. Finasteride 5 mg in the evening. 13. Zetia 10 mg daily. 14. Clopidogrel 75 mg daily. 15. Cholecalciferol 2000 units in the morning. 16. Terazosin 5 mg at bedtime. 17. Zoloft 50 mg in the morning. 18. Crestor 50 mg at bedtime. 19. Buspirone 10 mg twice daily. 20. Eliquis 2.5 mg twice daily. 21. Vitamin C 1000 mg daily p.r.n. ALLERGIES: SULFAMETHOXAZOLE and TRIMETHOPRIM. FAMILY HISTORY: No CAD. SOCIAL HISTORY: Disabled. . Lives with his Malka. Former tobacco. Rare alcohol. PHYSICAL EXAMINATION GENERAL: Older than stated age. Sitting 90 degrees up in bed. Short of breath. His sentences are cutoff, cannot talk in full sentences, becomes short of breath, but not using any of his accessory muscles of respiration. No increased work of breathing. VITAL SIGNS: In the emergency room 160/94, heart rate 79, respiratory rate is approximately 20, he is 93% on 3 L, T-max is 98. HEENT: His oropharynx is clear. He has moist mucous membranes. His sclerae are anicteric. He has elevated JVD to the angle as high as his top of his ear. LUNGS: Rales, trace in the base, but heard throughout. HEART: He has irregularly irregular heart rate, no appreciable murmur. ABDOMEN: Soft, nontender, and nondistended. EXTREMITIES: Warm and well perfused. He does have 2+ lower extremity edema. He has a fistula in his right lower arm. Bilateral groin access sites are clean , dry, and intact without a bruit. NEUROLOGIC: He is alert and oriented x3. He is interactive, but falls asleep while talking. Starts with clear phonation and diction, but then mumbles and trails off. Easy to wake by name. Moves all extremities. Cranial nerves are intact. DIAGNOSTIC STUDIES/LAB DATA: Hemoglobin is 9.1, platelets 240, white blood cell count is 9.4, INR is 1.3, BUN 63, creatinine is 6.53, glucose 117, lactic acid 0.6. Troponin I of 0.03, rising to 0.40; BNP is 1077. Chest x-ray: Pulmonary vascular congestion, peripheral pulmonary infiltrates concerning for pneumonia in the appropriate clinical context. EKG: Atrial fibrillation, ventricular rate 107 on presentation. Left axis biphasic T-waves V4, Q-wave inversions V5, V6, II, III, aVF. Not appreciably different than prior stay. ASSESSMENT AND PLAN: A 64-year-old man with past medical history of complicated cardiac history with coronary artery bypass with multiple in-stent restenoses, most recently on 01/29/20 after presenting with chest pain, history of end-stage renal disease requiring dialysis Saturday, Saturday, Saturday, now presenting to the hospital with increased shortness of breath and right arm pain. 1. Shortness of breath. Most concerning for congestive heart failure exacerbation in the setting of increased lower extremity edema and known desire to increase his dialysis this week. Unsure of his dry weight at this time. He does make urine and has an indwelling Joe. I will give him Lasix 40 mg IV now. Contact dialysis team vis-a-vis the Nephrology consultation, request dialysis today if approved by Cardiology. There is concern for possible peripheral infiltrate on x-ray; however, he has not been coughing, has no fever , has no leukocytosis. I think less likely pneumonia, more likely congestive heart failure in the clinical setting including lower extremity edema, increased need for dialysis, persistent shortness of breath since the time of his discharge with underlying cardiac history. One concern is whether he has had another cardiac event leading to his decompensated heart failure, which does complicate matters, is perfectly reasonable. He has an elevated troponin which is far less than it has been in the past. We will trend his troponin with a repeat EKG at noon. Contact Cardiology. I do suspect the elevated troponin at this point is demand ischemia, especially its quick resolution, but I will consult with Cardiology for further assist and evaluation of his elevated troponin as well as his shortness of breath and his chest pain. We will not proceed with a stress test at this time without further inputs from Cardiology, but we will continue with his home medications including amlodipine , Imdur, Plavix, lisinopril. 2. Atrial fibrillation. Continue with Eliquis and metoprolol. Of note, he is also on Plavix and had a recently identified retroperitoneal bleed that was small. I had to restate this in the chart so it does not become lost. For the blood loss of worsening anemia, may warrant a repeat CAT scan. He has no evidence of ongoing bleeding at this time. 3. Obstructive sleep apnea. Unclear if he uses CPAP. I will follow with the patient now and order if necessary. 4. End-stage renal disease, on hemodialysis. Contact Nephrology now and arrange for dialysis. 5. DVT prophylaxis. Eliquis as above. [id number]/[facility] #: [id number] [facility] HEALTH NETWORKPrakash
[2020-02-08 12:08] LABS: Troponin I 1.33 ng/mL (<0.03)
--- NOTE | 2020-02-08 13:35 | PN ---
Progress Note - Progress Note Date of Service: 02/08/20 Note: Interval Note: Discussed rising troponin with Dr. Salvador. Because his underlying coronary anatomy it is suspected he will leak troponin. There is not an intervention unless EKG shows something equivalent to STEMI. Will stop trending troponin. Would check EKG and/or troponin for reported chest pain.
--- NOTE | 2020-02-08 13:55 | CONS ---
CONSULTATION REPORT: DATE OF CONSULT: 02/08/20 ATTENDING PHYSICIAN: Dr. Micheal Salvador, Cardiology.* (DICTATED BY NICHOLE HOFFMAN NP) REASON FOR CONSULT: Chest pain, shortness of breath, troponin elevation. PRIMARY FINISH MILL OPERATOR: Dr. Lg Beltre. PRIMARY PHYSICIAN: Dr. Caban. CHIEF COMPLAINT: Right arm pain, increased shortness of breath. HISTORY OF PRESENT ILLNESS: This is a pleasant 64-year-old male patient who follows with Dr. Lg Beltre of our practise due to a notable history of coronary artery disease with remote bypass in 2002 that resulted in MARTINEZ to LAD , free radial graft to right PDA (with subsequent intervention in May of 2019 that resulted in PTCA/MARGARET to proximal portion of free radial artery graft to PDA ), subsequent complex stenting to ramus and proximal left circumflex in June of 2019 with relatively early InStent restenosis that resulted in (3 x 12 mm Synergy drug- eluting stents in a kissing fashion to proximal left circumflex and ramus extending back into the left main); the patient has end-stage renal disease, on hemodialysis every Saturday, Saturday, Saturday; prior left MCA stent, prior PFO closure; prior GI bleed while on NSAID, aspirin 325, and clopidogrel therapy in February 2019. The patient was recently admitted to [facility] on 01/26/20 due to newly found A-flutter with rapid ventricular rate response and type 2 infarct. He underwent the above-mentioned procedure for early InStent restenosis to proximal left circumflex in a kissing fashion to again proximal left ramus extending back into the left main. He was maintained on Plavix in combination with renal dose Eliquis therapy per [place] AF-PCI trial. He was not continued on aspirin therapy. He had symptomatic anemia, source was not found, although he had profound iron- deficiency anemia. Nephrology repleted iron storage with hemodialysis. Hemoccult was negative during that admission. It was decided to do a rate control approach in regards to the patient's A-flutter given his history of SA luc disease, intolerant of higher doses metoprolol and Brilinta in the past in addition to infection risk given the patient is a hemodialysis patient. He was ultimately discharged home. The patient states that within 24 hours he started to manifest increased shortness of breath. He initially noted shortness of breath after hemodialysis on Saturday. The patient states he had difficulty sleeping Saturday evening and in fact the entire weekend due to orthopnea. He has also noted slight increase in pretibial edema. Early this morning he developed resting right-sided arm pain described as an ache. He took 2 sublingual nitroglycerin with no relief, thus presented to [facility] for further evaluation. Please note, the patient's anginal equivalent in the past is right upper extremity discomfort. He denies dizziness , syncope, palpitations, sensation of heart racing, fever, nausea, vomiting, or diarrhea. Denies hematochezia, melena, or hemoptysis. Does report nonproductive cough or shortness of breath. The patient has not had recurrent arm pain since early this morning. We were asked to see the patient in consultation given recent NSTEMI and cardiac comorbidities. The patient is asymptomatic at this time other than reported shortness of breath. Does report increased urine output since given IV Lasix while in the emergency department. Last echocardiogram was on 02/02/20; per report LVEF 55% to 60%, normal wall motion, [id number] mitral insufficiency, moderate tricuspid regurgitation , moderate pulmonary hypertension. Last cardiac catheterization, the patient had a relook cardiac catheterization on 02/01/20 due to an NSTEMI. Per report, left main was widely patent; the distal portion of left main the 2 prior stents were noted, one into the circumflex and one into the obtuse marginal branch. LAD totally occluded at its ostium. Left circumflex; despite a moderate size high first obtuse marginal branch/ trifurcation marginal branch followed by a thin second obtuse marginal branch at a moderate size bifurcating third obtuse marginal branch and extending in a low lying posterior left ventricle branch. Collateral flow was noted in the distal right coronary artery, posterior left ventricular branch small vessel size. The prior stents in both the high obtuse marginal branch and trifurcation marginal branch as well as the proximal left circumflex, both extending in a double- barrelled effect back into the left main appeared to be widely patent with no evidence of significant stenosis and no significant thrombosis. JAE-3 flow was noted down both vessels. Right coronary noted to be totally occluded from prior cardiac catheterization. Free pedicle right radial autograft to PDA was patent in regards to both previously placed stents. MARTINEZ to LAD was widely patent. Of note, there was at best retrograde flow to the proximal portion of the PDA and trace filling into the douglas right coronary that was previously more robust on prior catheterization done on 01/30/20, PDA filled distally from collateral flow. PAST MEDICAL HISTORY: 1. Coronary artery disease. 2. End-stage renal disease, on hemodialysis every Saturday, Saturday, Saturday. 3. Prior CVA. 4. Prior GI bleed, February 2018. 5. Recurrent InStent stenosis to free right radial autograft to PAD with subsequent intervention. 6. Iron-deficiency anemia. 7. Prior CABG in 2002. 8. Hypertension. 9. Hyperlipidemia. 10. Diastolic heart failure. 11. PFO closure. 12. Known SA luc disease, intolerant to Brilinta therapy in the past. 13. Intermittent thrombocytopenia. 14. Melanoma. 15. Wpxh-im-rlctkhnq mitral insufficiency. 16. Grcm-yk-ectkubsu pulmonary hypertension. 17. Type 2 diabetes mellitus. 18. Obstructive sleep apnea. 19. Carotid artery disease. PAST SURGICAL HISTORY: Includes: 1. Prior PFO closure. 2. CABG x3 in 2002 as mentioned above. 3. Left MCA stent. 4. Prior drug-eluting stent placement to free right radial graft to PDA, proximal left circumflex and ramus in a kissing fashion extending back to the left main. 5. Right fistula graft for hemodialysis. HOME MEDICATIONS: Per admission med rec include: 1. Plavix 75 mg a day. 2. Eliquis 2.5 mg p.o. b.i.d. 3. Hemodialysis every Saturday, Saturday, Saturday. 4. Amlodipine 5 mg a day. 5. Sublingual nitroglycerin 0.4 mg sublingual q.5 minute p.r.n. 6. Pepcid 20 mg every other day. 7. [place]azon-3 1000 mg p.o. t.i.d. 8. Toprol 25 mg a day. 9. Imdur 240 mg a day. 10. Lisinopril 5 mg a day. 11. Lasix 40 mg p.o. b.i.d. 12. Finasteride 5 mg a day. 13. Zetia 10 mg a day. 14. Hytrin 5 mg p.o. q.h.s. 15. Zoloft 50 mg a day. 16. Crestor 40 mg a day. 17. Buspirone 10 mg p.o. b.i.d. 18. Vitamin C 1000 mg p.o. daily. FAMILY HISTORY: Noncontributory. SOCIAL HISTORY: The patient is , lives at home with his . He is disabled with severely sedentary lifestyle. Denies tobacco abuse, alcohol abuse , or drug abuse. He ambulates independently. REVIEW OF SYSTEMS: All systems have been reviewed and otherwise negative except what was mentioned in the HPI. PHYSICAL EXAM: The patient was examined in the emergency department, most recent temperature of 97.8, pulse 88, respirations 20, oxygenation 94% on 3 L nasal cannula, blood pressure 169/113. General: The patient is chronically ill - appearing, well-nourished, in no apparent distress. Does not have conversational dyspnea. Is cooperative and alert and oriented x3. HEENT: Head is atraumatic, normocephalic. Oral mucosa is moist. Tongue is midline. Neck: Supple. Trachea midline. Positive bilateral carotid bruits. Positive JVD. Cardiac: Tachycardic. S1, S2. Irregular rate and rhythm. Positive mitral murmur noted on exam, 2/. No gallop or rub. Lungs auscultated posteriorly. Inspiratory rales noted in bilateral bases. Respirations nonlabored. /GI: Abdomen is protuberant, nontender. Positive distention. Normoactive bowel sounds x4. Extremities: 1+ pitting pretibial edema noted bilaterally. Peripheral vascular: 2+ dorsalis pedis pulse palpated bilaterally and symmetrically, 3+ brachial pulse palpated bilaterally and symmetrically. Right fistula had positive thrill. Blood work obtained at [facility] on 02/08/20: White count 9.4, hemoglobin 9.1, hematocrit 26, platelets 246. INR 1.32. Sodium 134, potassium 4, creatinine 6.58. Troponin #1, 0.38; troponin #2, 0.40. BNP 1077. Chest x-ray 02/08/20, per radiology report: Pulmonary vascular congestion, peripheral pulmonary infiltrates considering for pneumonia in appropriate clinical context. ECG 02/08/20; reviewed. Aflutter with rapid ventricular rate response, heart rate [address]-segment depression and T-wave inversion consistent with prior ECG. No ST segment elevation appreciated to suggest InStent thrombosis. ASSESSMENT AND PLAN: 1. Troponin elevation; troponin has plateaued at 0.40 consistent with recent infarct. There is no ST segment elevation appreciated on ECG to suggest InStent thrombosis. The patient did unfortunately loose his collateral flow to his proximal PDA, thus medical therapy was recommended on his recent relook catheterization from 02/02/20. At this time, would recommend continuing Plavix 75 mg a day in combination with Eliquis 2.5 mg a day, metoprolol, Imdur, Lipitor , and amlodipine therapy. At this current time, we do not recommend further cardiac studies such as stress test or cardiac catheterization. The patient is asymptomatic at this time in regards to anginal equivalent which is historically right arm pain. 2. Newly found persistent atrial flutter with rapid ventricular rate response. The patient has a known component of sick sinus syndrome. Decision in the past was to not proceed with rhythm control approach including implantation of a permanent pacemaker due to potential risk for infection given the patient is a hemodialysis patient. It appears the patient is not tolerating atrial flutter, thus he presented with decompensated diastolic dysfunction. In the past, he did not tolerate high doses of AV lcu agents including Brilinta due to adenosine effect with symptomatic bradycardia. At this time, would recommend continuing renally dosed Eliquis in combination with metoprolol 25 a day. I will defer to Dr. Salvador in regards to consideration of restoring sinus rhythm with the hope of improving decompensated diastolic heart failure. We will defer volume management to solutions market consultant who had recently informed the patient that they want to increase hemodialysis to Saturday, Saturday, Saturday this week due to increased weight gain since recent discharge. 3. Decompensated diastolic dysfunction, likely due to above #2, on metoprolol therapy. The patient is to receive hemodialysis today. Continue Lasix 40 b.i.d. Please ensure strict intake, output, and weigh the patient daily. 4. History of coronary artery disease with recent PCI to proximal left circumflex and ramus extending back to the distal left main in a kissing fashion , on clopidogrel in combination with Eliquis therapy in addition to metoprolol and Lipitor therapy. No evidence to suggest acute InStent thrombosis at this time. 5. History of end-stage renal disease, on hemodialysis. We will defer to primary team and Nephrology. 6. History of iron-deficiency anemia, hemoglobin reflective of baseline. The patient was receiving IV replacement with hemodialysis. 7. Disposition: Pending course. Dr. Micheal Salvador has personally seen and examined the patient and agrees with the above plan. We will make further recommendations after case was discussed with his primary supervisor patching given in the past rate control approach was recommended. At this time, it appears that the patient is decompensated due to loss of atrial kick from being in persistent atrial flutter. We will follow the patient closely. Thank you for this kind consultation. Any future questions or concerns, please do not hesitate to contact our practice. NICHOLE HOFFMAN, WONG [id number]/[facility] #: [id number] KIKI
[2020-02-08] MEDS ORDERED: EPOETIN ALFA-EPBX * 4,000 UNIT/ML VIAL IV ONE (14:00)
[2020-02-08] MEDS: Clopidogrel TAB* 75 MG PO SCH (15:38)
[2020-02-08] MEDS: Metoprolol Succinate XL TAB* 25 MG PO SCH (15:38)
[2020-02-08] MEDS: Isosorbide Mononitrate ER TAB* 60 MG PO SCH (15:39)
[2020-02-08] MEDS: Ezetimibe TAB* 10 MG PO SCH (15:39)
[2020-02-08] MEDS: Sertraline* 50 MG TAB PO SCH (15:39)
[2020-02-08] MEDS: Lisinopril TAB* 5 MG PO SCH (15:39)
--- NOTE | 2020-02-08 16:47 | PN ---
Progress Note - Progress Note Date of Service: 02/08/20 Note: Chief complaint: End-stage renal disease on hemodialysis Saturday and Saturday. Volume overload. Heart failure. Interval history: Mr. Watson is a very nice 64 year gentleman with history of ischemic cardiomyopathy and end-stage kidney disease. He was admitted last week for chest pain and had a complicated hospitalization requiring 2 cardiac catheterizations. He had 3 stents placed at the first catheterization. He has a very complicated coronary anatomy. He was dialyzed as an outpatient on Saturday. We had difficulties removing fluid during his hospitalization because of his acute and ongoing coronary ischemia. He was admitted this morning for shortness of breath and right shoulder and chest pain which is his regular anginal pain. Chest x-ray on admission showed pulmonary edema. I saw him before dialysis and he was short of breath requiring oxygen per nasal cannula. He looked pale and stated that he did not feel good. Looked tired. Got a little sleep last night. Main complaint before going to sleep was shortness of breath. He was awoken around 3:00 in the morning with right shoulder pain. He states that blood pressure was above 200/100 at that time. Presented to the emergency room around 5:00 in the morning. Review of systems: As in history of present illness. He does not make urine. Physical exam: Temp Pulse Resp BP SpO2 FiO2 97.2 F 85 20 138/70 97 02/08/20 15:30 02/08/20 15:30 02/08/20 15:30 02/08/20 15:30 02/08/20 15:30 Constitutional: Mild respiratory distress. Extremities with +1 edema. Alert and oriented 3 grossly nonfocal, judgment and insight appropriate, mood is normal. aCTIVE MEDICATIONS Acetaminophen (Tylenol Tab*) 650 mg PO Q4H PRN PRN Reason: MILD PAIN or TEMP > 100.4 Amlodipine Besylate (Norvasc Tab*) 5 mg PO QPM [facility] Apixaban (Eliquis*) 2.5 mg PO BID [facility] Last Admin: 02/08/20 11:09 Dose: 2.5 mg Atorvastatin Calcium (Lipitor*) 80 mg PO BEDTIME [facility] Buspirone HCl (Buspar Tab*) 10 mg PO BID [facility] Last Admin: 02/08/20 11:09 Dose: 10 mg Clopidogrel Bisulfate (Plavix Tab*) 75 mg PO DAILY [facility] Last Admin: 02/08/20 15:38 Dose: 75 mg Ezetimibe (Zetia Tab*) 10 mg PO DAILY [facility] Last Admin: 02/08/20 15:39 Dose: 10 mg Finasteride (Proscar Tab*) 5 mg PO QPM [facility] Furosemide (Lasix Tab*) 40 mg PO BID [facility] Last Admin: 02/08/20 11:09 Dose: 40 mg Isosorbide Mononitrate (Imdur Er Tab*) 240 mg PO QAM [facility] Last Admin: 02/08/20 15:39 Dose: 240 mg Lisinopril (Prinivil Tab*) 5 mg PO QAM [facility] Last Admin: 02/08/20 15:39 Dose: 5 mg Metoprolol Succinate (Toprol Xl Tab*) 25 mg PO DAILY [facility] Last Admin: 02/08/20 15:38 Dose: 25 mg Minoxidil (Loniten Tab*) 2.5 mg PO BID [facility] Last Admin: 02/08/20 11:09 Dose: 2.5 mg Nitroglycerin (Nitroglycerin Tab 0.4 Mg*) 0.4 mg SL Q5M PRN PRN Reason: ANGINA Ondansetron HCl (Zofran Inj*) 4 mg IV Q4H PRN PRN Reason: NAUSEA/VOMITING Sertraline HCl (Zoloft*) 50 mg PO QAM [facility] Last Admin: 02/08/20 15:39 Dose: 50 mg Terazosin HCl (Hytrin Cap*) 5 mg PO BEDTIME [facility] Abnormal Lab Results 02/08/20 02/08/20 02/08/20 06:05 06:05 06:05 WBC 9.4 RBC 2.86 L Hgb 9.1 L Hct 26 L MCV 91 MCH 32 H MCHC 35 RDW 15 Plt Count 246 MPV 9.1 Neut % (Auto) 86.9 Lymph % (Auto) 5.6 [place] % (Auto) 6.0 Eos % (Auto) 1.2 Baso % (Auto) 0.3 Absolute Neuts (auto) 8.2 H Absolute Lymphs (auto) 0.5 L Absolute Monos (auto) 0.6 Absolute Eos (auto) 0.1 Absolute Basos (auto) 0.0 Absolute Nucleated RBC 0.0 Nucleated RBC % 0.0 INR (Anticoag Therapy) Sodium 134 L Potassium TNP Chloride 98 L Carbon Dioxide 23 Anion Gap 13 H BUN 63 H Creatinine 6.58 H Est GFR ( Amer) 10.3 Est GFR (Non-Af Amer) 8.5 BUN/Creatinine Ratio 9.6 Glucose 117 H Lactic Acid 0.6 Calcium 8.8 Total Bilirubin 0.80 AST TNP ALT 51 Alkaline Phosphatase 159 H Troponin I 0.38 H* B-Natriuretic Peptide Total Protein 6.4 Albumin 3.7 Globulin 2.7 Albumin/Globulin Ratio 1.4 02/08/20 02/08/20 02/08/20 06:05 06:05 07:00 WBC RBC Hgb Hct MCV MCH MCHC RDW Plt Count MPV Neut % (Auto) Lymph % (Auto) [place] % (Auto) Eos % (Auto) Baso % (Auto) Absolute Neuts (auto) Absolute Lymphs (auto) Absolute Monos (auto) Absolute Eos (auto) Absolute Basos (auto) Absolute Nucleated RBC Nucleated RBC % INR (Anticoag Therapy) 1.32 H Sodium Potassium Chloride Carbon Dioxide Anion Gap BUN Creatinine Est GFR ( Amer) Est GFR (Non-Af Amer) BUN/Creatinine Ratio Glucose Lactic Acid Calcium Total Bilirubin AST ALT Alkaline Phosphatase Troponin I 0.40 H* B-Natriuretic Peptide 1077 H Total Protein Albumin Globulin Albumin/Globulin Ratio 02/08/20 02/08/20 07:00 11:37 WBC RBC Hgb Hct MCV MCH MCHC RDW Plt Count MPV Neut % (Auto) Lymph % (Auto) [place] % (Auto) Eos % (Auto) Baso % (Auto) Absolute Neuts (auto) Absolute Lymphs (auto) Absolute Monos (auto) Absolute Eos (auto) Absolute Basos (auto) Absolute Nucleated RBC Nucleated RBC % INR (Anticoag Therapy) Sodium Potassium 4.0 Chloride Carbon Dioxide Anion Gap BUN Creatinine Est GFR ( Amer) Est GFR (Non-Af Amer) BUN/Creatinine Ratio Glucose Lactic Acid Calcium Total Bilirubin AST 25 ALT Alkaline Phosphatase Troponin I 1.33 H* B-Natriuretic Peptide Total Protein Albumin Globulin Albumin/Globulin Ratio A/P: 1. End-stage kidney disease due to HTN, on hemodialysis Saturday was then Saturday. Today is his regular dialysis day and he received dialysis for maintenance of acid base and electrolyte balance but also to improve his volume status. I saw the patient during dialysis today. He was very comfortable, during treatment. At the time of my visit he had 3.8 L of volume removed with much improved blood pressure. 2. Coronary artery disease. Cardiology was consulted today. 3. Hypertension. Continue home blood pressure medications. blood pressure getting better with volume removal. 4. Anemia of end-stage kidney disease. He receiveD erythropoietin stimulating agent with dialysis at 4000 units.
[2020-02-08] MEDS: Finasteride TAB* 5 MG PO SCH (17:58)
[2020-02-08] MEDS: amLODIPine TAB* 5 MG PO SCH (17:58)
[2020-02-08] MEDS: Atorvastatin* 80 MG TAB PO SCH (20:22)
[2020-02-08] MEDS: Terazosin CAP* 5 MG PO SCH (20:22)
[2020-02-09] MEDS: MinoXIDil TAB* 2.5 MG TAB PO SCH ×2 (08:20→21:21)
[2020-02-09] MEDS: Apixaban* 2.5 MG TAB PO SCH (08:21)
[2020-02-09] MEDS: Furosemide TAB* 40 MG PO SCH ×2 (08:21→21:22)
[2020-02-09] MEDS: busPIRone TAB* 10 MG PO SCH ×2 (08:21→21:22)
[2020-02-09 08:55] LABS: ABS Eosinophils 0.2 10^3/ul (0-0.6); ABS Lymphocytes 0.8 10^3/ul (1.0-4.8); ABS Monocytes 0.4 10^3/ul (0-0.8); ABS Neutrophils 3.9 10^3/ul (1.5-7.7); Eosinophil % 3.2 %; Hematocrit 27 % (42-52); Hemoglobin 9.1 g/dL (14.0-18.0); Lymphocyte % 14.7 %; Mean Corpuscular HGB Conc 34 g/dL (31-36); Mean Corpuscular Hemoglobin 31 pg (27-31); Mean Corpuscular Volume 92 fL (80-94); Mean Platelet Volume 8.5 fL (7.4-10.4); Platelet Count 245 10^3/uL (150-450); Red Blood Count 2.93 10^6 /uL (4.18-5.48); Red Cell Distribution Width 15 % (10-15); White Blood Count 5.3 10^3/uL (3.5-10.8)
[2020-02-09] MEDS: Metoprolol Succinate XL TAB* 25 MG PO SCH (09:10)
[2020-02-09 09:16] LABS: Albumin 3.7 g/dL (3.2-5.2); Albumin/Globulin Ratio 1.6 (1-3); BUN/Creatinine Ratio 8.6 (8-20); Calcium 8.7 mg/dL (8.6-10.3); EGFR African American 12.7 (>60); EGFR Non-African American 10.5 (>60); Globulin 2.3 g/dL (2-4); Potassium 3.9 mmol/L (3.5-5.0); Total Bilirubin 0.8 mg/dL (0.2-1.0)
--- NOTE | 2020-02-09 09:20 | PN ---
Subjective Date of Service: 02/09/20 - Symptomatic AFL, Decompensated DHF. Interval History: No events last night, patient doing well states he feels as though he has improved since oxygen given and HD. Denies right arm pain, chest pain. Adds that SOB has improved. Offers no other complaints. To have HD at 1030 today. Denies dizziness, lightheadedness, melena or bleeding events. Medications Active Medications: Acetaminophen (Tylenol Tab*) 650 mg PO Q4H PRN PRN Reason: MILD PAIN or TEMP > 100.4 Amlodipine Besylate (Norvasc Tab*) 5 mg PO QPM [facility] Last Admin: 02/08/20 17:58 Dose: 5 mg Apixaban (Eliquis*) 2.5 mg PO BID [facility] Last Admin: 02/09/20 08:21 Dose: 2.5 mg Atorvastatin Calcium (Lipitor*) 80 mg PO BEDTIME [facility] Last Admin: 02/08/20 20:22 Dose: 80 mg Buspirone HCl (Buspar Tab*) 10 mg PO BID [facility] Last Admin: 02/09/20 08:21 Dose: 10 mg Clopidogrel Bisulfate (Plavix Tab*) 75 mg PO DAILY [facility] Last Admin: 02/08/20 15:38 Dose: 75 mg Ezetimibe (Zetia Tab*) 10 mg PO DAILY [facility] Last Admin: 02/08/20 15:39 Dose: 10 mg Finasteride (Proscar Tab*) 5 mg PO QPM [facility] Last Admin: 02/08/20 17:58 Dose: 5 mg Furosemide (Lasix Tab*) 40 mg PO BID [facility] Last Admin: 02/09/20 08:21 Dose: 40 mg Isosorbide Mononitrate (Imdur Er Tab*) 240 mg PO QAM [facility] Last Admin: 02/08/20 15:39 Dose: 240 mg Lisinopril (Prinivil Tab*) 5 mg PO QAM [facility] Last Admin: 02/08/20 15:39 Dose: 5 mg Metoprolol Succinate (Toprol Xl Tab*) 25 mg PO DAILY [facility] Last Admin: 02/09/20 09:10 Dose: Not Given Minoxidil (Loniten Tab*) 2.5 mg PO BID [facility] Last Admin: 02/09/20 08:20 Dose: 2.5 mg Nitroglycerin (Nitroglycerin Tab 0.4 Mg*) 0.4 mg SL Q5M PRN PRN Reason: ANGINA Ondansetron HCl (Zofran Inj*) 4 mg IV Q4H PRN PRN Reason: NAUSEA/VOMITING Sertraline HCl (Zoloft*) 50 mg PO QAM [facility] Last Admin: 02/08/20 15:39 Dose: 50 mg Terazosin HCl (Hytrin Cap*) 5 mg PO BEDTIME [facility] Last Admin: 02/08/20 20:22 Dose: 5 mg Objective Vital Signs: Temp Pulse Resp BP Pulse Ox 97.4 F 70 20 144/64 96 02/09/20 07:47 02/09/20 07:47 02/09/20 07:47 02/09/20 07:47 02/09/20 07:47 Oxygen Devices in Use Now: Nasal Cannula Appearance: sitting upright in bed, NAD, A+O x3 , cooperative with exam. Eyes: No Scleral Icterus Ears/Nose/Mouth/Throat: NL Teeth, Lips, Gums, Mucous Membranes Moist Respiratory: - - inspiratory rales noted in bases. respirations are non labored. Cardiovascular: - - irregular rate and ryhthm. No murmur, gallop or rub Extremities: - - trace pretibial edema. Skin: No Rash or Ulcers Neurological: Alert and Oriented x 3 Lines/Tubes/Other Access: Clean, Dry and Intact Joe, Clean, Dry and Intact Peripheral IV Laboratory Results: 02/09/20 08:47 02/08/20 07:00 INR (Anticoag Therapy) 1.32 (0.82-1.09) H 02/08/20 06:05 Total Bilirubin 0.80 mg/dL (0.2-1.0) 02/08/20 06:05 AST 25 U/L (13-39) 02/08/20 07:00 ALT 51 U/L (7-52) 02/08/20 06:05 Alkaline Phosphatase 159 U/L (34-104) H 02/08/20 06:05 B-Natriuretic Peptide 1077 pg/mL (<=100) H 02/08/20 06:05 Total Protein 6.4 g/dL (6.4-8.9) 02/08/20 06:05 Albumin 3.7 g/dL (3.2-5.2) 02/08/20 06:05 Globulin 2.7 g/dL (2-4) 02/08/20 06:05 Albumin/Globulin Ratio 1.4 (1-3) 02/08/20 06:05 02/08/20 02/08/20 02/08/20 06:05 07:00 11:37 Troponin I 0.38 H* 0.40 H* 1.33 H* Laboratory Results - last 24 hr 02/08/20 02/09/20 02/09/20 11:37 08:47 08:47 WBC 5.3 RBC 2.93 L Hgb 9.1 L Hct 27 L MCV 92 MCH 31 MCHC 34 RDW 15 Plt Count 245 MPV 8.5 Neut % (Auto) 73.7 Lymph % (Auto) 14.7 [place] % (Auto) 7.5 Eos % (Auto) 3.2 Baso % (Auto) 0.9 Absolute Neuts (auto) 3.9 Absolute Lymphs (auto) 0.8 L Absolute Monos (auto) 0.4 Absolute Eos (auto) 0.2 Absolute Basos (auto) 0.0 Absolute Nucleated RBC 0.0 Nucleated RBC % 0.0 Sodium 135 Potassium 3.9 Chloride 100 L Carbon Dioxide 26 Anion Gap 9 BUN 47 H Creatinine 5.49 H Est GFR ( Amer) 12.7 Est GFR (Non-Af Amer) 10.5 BUN/Creatinine Ratio 8.6 Glucose 152 H Calcium 8.7 Total Bilirubin 0.80 AST 18 ALT 39 Alkaline Phosphatase 149 H Troponin I 1.33 H* Total Protein 6.0 L Albumin 3.7 Globulin 2.3 Albumin/Globulin Ratio 1.6 Diagnostic Imaging: Patient Name: SCOTT FELIZ Medical Record#: [id number] Ordering Physician: Mendy Hawk MD Acct.#: [id number] : 1955 Age: 64 Sex: M Location: EMERGENCY DEPARTMENT Exam Date: 02/08/20556 ADM Status: REG ER Order Information: CHEST AP/PORT Accession Number: [id number] CPT: 51309 INDICATION: Chest pain COMPARISON: February 02, 2020 TECHNIQUE: Upright AP 0630 hours REPORT: Bilateral patchy alveolar opacities. Grossly clear pleural spaces. Negative for pneumothorax. Cardiomegaly. Prominent ill-defined central pulmonary vasculature. Median sternotomy wires. IMPRESSION: #. Pulmonary vascular congestion. #. Peripheral pulmonary infiltrates concerning for pneumonia in the appropriate clinical context. Correlate with clinical assessment. Results discussed with Dr. Little at 02/08/2020 8:20 AM EDT <Electronically signed by Chico Blake MD in OV> 02/08/20820 Dictated By: Chico Blake MD Dictated Date/Time: 02/08/20815 Transcribed Date/Time: 02/08/20815 Copy to: CC:Mendy Hawk MD; Benjy Caban MD [facility] [address] [address] ph ([phone]) ph ([phone]) ph ([phone]) This report is only to be considered final once signed by the Provider(s) as displayed in the "<Electronically Signed by >" field (s). Absence of a signature indicates the report is in a draft status and still needs to be finalized. In the event this document was created by someone other than the signing Provider, the individual initiating the document will be listed in the "Entered by:" or "Dictated by:" ortiz. 1 of 1 EKG Data: Telemetry reviewed. Afib/Afl rate 60-90's., no pauses or significant bradycardia. 02/09/2020 ECG; AFlutter rate [address] depression and TWI. No ST elevation. Assessment/Plan #1 Newly diagnosed symptomatic persistent AFL; Chads Vasc 7 on renal dose Eliquis. Initial plan was rate control approach however, he presented with decompensated DHF likely due to loss of atrial kick. Plan is to proceed with [facility]aritan of NSR via BERRY/CV. given h/o SA luc disease and a component of SSS he is at risk for post conversion pause/ bradyarrythmia requiring PPM. till hold AVN agent today in preparation for BERRY/CV. Will make patient NPO and plan for BERRY/CV after HD later today. He was able to lay flat and did not become hypoxic. He appears stable for BERRY/CV today. I reviewed risk of procedure with patient including but not limited to; bradycardia requiring PPM implant, hypotension, CVA, , superficial skin christy. He is agreeable to proceeding. Continue Eliquis 2.5mg PO BID. #2 Decompensated DHF; Likely due to above #1. responded well to HD yesterday. Differ fluid management to nephrology. On Toprol 25/day, Lisinopril 5mg/day, Lasix 40 BID. Reports improvement in breathing effort. #3 h/o CAD with recent NSTEMI due to early restensosis to proximal Lcx and Ramus requiring kissing MARGARET placement to proximal Lcx and ramus kissing fashion extending back into LM. Now on Plavix 75/day in combination with Eliquis 2.5mg PO BID. Per relook [facility] 02/01/2020; He lost collateral flow to proximal PDA which has produced angina however, he is on Imdur therapy and Norvasc therapy. Currently pain free. No ST elevation to suggest instent thrombosis. Continue medical therapy. #4 h/o ESRD on HD; nephrology following. #5 h/o LACY; H+H stable and reflective of baseline. denies bleeding events, differ to primary team #6 Disposition pending course. Patient full code. Plan is BERRY/Cv later today after HD. Dr. Salvador is aware and agreeable to above assessment and plan. Attending: Micheal Salvador
[2020-02-09] MEDS ORDERED: fentaNYL* 50 MCG/ML 2 ML VIAL (100 MCG VIAL) ONE (15:10)
[2020-02-09] MEDS ORDERED: Naloxone* 0.4 MG/ML 1 ML VIAL ONE (15:10)
[2020-02-09] MEDS ORDERED: Flumazenil* 0.1 MG/ML 5 ML MDV ONE (15:10)
[2020-02-09] MEDS ORDERED: Midazolam* 1 MG/ML 5 ML VIAL (5 MG) ONE (15:10)
[2020-02-09] MEDS ORDERED: Lidocaine 2% VISCOUS* 15 ML UDC ONE (15:11)
--- NOTE | 2020-02-09 15:38 | PN ---
Progress Note - Progress Note Date of Service: 02/09/20 - nephrology Note: Chief complaint: End-stage kidney disease on hemodialysis Saturday. volume overload. Acute Diastolic heart failure. Interval history. Patient is a very nice 64-year-old gentleman well known to our nephrology service. He has a very complicated cardiac history. He received dialysis yesterday for volume overload. He remains volume overloaded and he had another dialysis treatment this morning. I saw him during dialysis which he tolerated very well. Additional treatment of hemodialysis was required for volume overload. He was very comfortable during treatment. Blood pressure in 130s over 80s. Review of systems: Does not make urine. Shortness of breath is improved. Physical exam: Temp Pulse Resp BP SpO2 FiO2 97.2 F 75 18 131/59 98 02/09/20 14:55 02/09/20 14:55 02/09/20 14:55 02/09/20 14:55 02/09/20 14:55 Constitutional: no acute distress, sleeping comfortably during dialysis, sitting in the dialysis chair. Extremities with trace edema. A/P: 1.End-stage kidney disease due to HTN, on hemodialysis Saturday was then Saturday. Additional hemodialysis treatment for volume removal. today . I saw the patient during dialysis. He was sleeping very comfortably. I let him sleep because he gets very poor sleep in the hospital. 2. Coronary artery disease/ atrial flutter/Acute on chronic Diastolic heart failure. Volume removal for heart failure. Further management of atrial flutter per cardiology. 3. Hypertension. Much improved with volume removal. 4. Anemia of end-stage kidney disease. He received erythropoietin stimulating agent with dialysis at 4000 units.
--- NOTE | 2020-02-09 16:57 | TEE ---
*[facility]* [place] [address] Fax #: [phone] Transesophageal Echocardiogram Patient: Siva Watson : 1955 Study Date: 02/09/2020 Age: 64 Gender: M HR: 78 bpm Height: 72 in /182.9 cm BSA: 2.28 m^2 Weight: 234.5 lb /106.6 kg BMI: 31.9 kg/m^2 *Law Enforcement Director: * Lizet Pack RDCS RN *Referring Physician: * Amy Epperson *Reading Physician: * Micheal Salvador MD Indications: Atrial Flutter. History: Coronary artery disease. CABG. PCI. Repair of patent foramen ovale. HOAWRD. ESRD on dialysis. Risk factors: Hypertension. Dyslipidemia. Conclusions Summary: - Left ventricle: Systolic function is normal. The estimated ejection fraction is 55-60%. Wall motion is normal; there are no regional wall motion abnormalities. - Left atrium: There is no evidence of a thrombus in the atrial cavity or appendage. - Atrial septum: A closure device is present. A bubble study was not performed. - Mitral valve: There is mild regurgitation. - Aortic valve: There is no evidence of stenosis. There is no significant regurgitation. - Tricuspid valve: There is mild regurgitation. - Ascending aorta: The ascending aorta is mildly dilated at 3.6 cm. There is mild atherosclerotic plaque seen in the visualized segments of the aorta. - Pulmonary arteries: Systolic pressure cannot be accurately estimated. Study data: Diagnostic Transesophageal Echocardiogram Consent: The risks and benefits of the procedure, including alternatives were discussed with the patient and/or their health care electronics parts sales representative and written informed consent was obtained. Procedure: Initial setup: The patient was brought to the laboratory in the fasting state.Intravenous access was obtained. Surface ECG leads, heart rate, heart rhythm, blood pressure measurements, pulse oximetric signals, and mainstream end-tidal CO2 tracings were monitored throughout the procedure. Sedation. Moderate sedation was administered by nursing staff. History and physical as well as labs were reviewed. An oral bite block was inserted for protection of oral dentition. The patient was placed in the left lateral decubitus position. Topical anesthesia was obtained using viscous lidocaine. A transesophageal probe was inserted by the attending mixing house operator without difficulty.Transesophageal echocardiography was performed. Image quality was good and all standard views were attempted within the limitations of patient tolerance and safety. Multiple 2D, color flow Doppler and spectral Doppler images were obtained. The transesophageal probe was removed. Location: Procedure room. Patient status: Inpatient. Patient room number: 445-02. Study completion: The patient tolerated the procedure well. There were no complications. Administered medications: Midazolam 5 mg IV. Fentanyl 50 mcg IV. Rhythm: Atrial flutter. Findings Left ventricle: The cavity size is normal. Systolic function is normal. The estimated ejection fraction is 55-60%. Wall motion is normal; there are no regional wall motion abnormalities. Right ventricle: The cavity size is normal. Systolic function is low normal. Left atrium: The atrium is moderately to severely dilated. There is no evidence of a thrombus in the atrial cavity or appendage. Right atrium: The atrium is moderately dilated. Atrial septum: A closure device is present. A bubble study was not performed. Mitral valve: The leaflets are mildly thickened. There is no evidence of stenosis. There is mild regurgitation. Aortic valve: The valve is trileaflet. The leaflets are mildly thickened. There is no evidence of stenosis. There is no significant regurgitation. Tricuspid valve: The valve is structurally normal. There is mild regurgitation. Pulmonic valve: The valve is structurally normal. There is mild regurgitation. Aorta: Aortic root: The aortic root is mildly dilated at 3.9 cm. Ascending aorta: The ascending aorta is mildly dilated at 3.6 cm. There is mild atherosclerotic plaque seen in the visualized segments of the aorta. Pericardium: There is no pericardial effusion. Pulmonary arteries: The main pulmonary artery is normal-sized. Systolic pressure cannot be accurately estimated. Systemic veins: Inferior vena cava: The vessel is normal in size. Superior vena cava: The vessel is appears normal. Pulmonary veins: The pulmonary veins appear normal. Measurements Aortic valve Value Ref Aortic root Value Ref Liz diam, ED 2.5 cm ---- Root diam 3.9 cm <4.3 Liz diam/bsa, ED 1.1 cm/m^2 ---- Root max diam, ED 3.9 cm <4.3 Peak v, S 1.25 m/sec ---- VTI, S 21.5 cm ---- Ascending aorta Value Ref Mean grad, S 3.0 mm Hg ---- AAo AP diam, S 3.6 cm ---- Peak grad, S 6.0 mm Hg ---- Legend: (L) and (H) sergio values outside specified reference range. Prepared and electronically signed by Micheal Salvador MD 02/09/2020 16:57
[2020-02-09] MEDS ORDERED: Heparin DRIP 25,000 UNITS(*) 25,000 UNITS/500 ML BAG IV SCH (17:15)
[2020-02-09 17:36] LABS: ABS Eosinophils 0.2 10^3/ul (0-0.6); ABS Lymphocytes 0.7 10^3/ul (1.0-4.8); ABS Monocytes 0.4 10^3/ul (0-0.8); ABS Neutrophils 2.5 10^3/ul (1.5-7.7); Eosinophil % 3.9 %; Hematocrit 27 % (42-52); Hemoglobin 9.2 g/dL (14.0-18.0); Lymphocyte % 18.8 %; Mean Corpuscular HGB Conc 34 g/dL (31-36); Mean Corpuscular Hemoglobin 32 pg (27-31); Mean Corpuscular Volume 92 fL (80-94); Mean Platelet Volume 8.6 fL (7.4-10.4); Platelet Count 225 10^3/uL (150-450); Red Blood Count 2.92 10^6 /uL (4.18-5.48); Red Cell Distribution Width 15 % (10-15); White Blood Count 3.9 10^3/uL (3.5-10.8)
[2020-02-09] MEDS: Clopidogrel TAB* 75 MG PO SCH (17:38)
[2020-02-09] MEDS: Lisinopril TAB* 5 MG PO SCH (17:38)
[2020-02-09] MEDS: Sertraline* 50 MG TAB PO SCH (17:38)
[2020-02-09] MEDS: Ezetimibe TAB* 10 MG PO SCH (17:38)
[2020-02-09] MEDS: Isosorbide Mononitrate ER TAB* 60 MG PO SCH (17:38)
--- NOTE | 2020-02-09 17:50 | PN ---
Subjective Date of Service: 02/09/20 Interval History: Evaluated after cardioversion. Patient still minimally sedated after procedure. Having frequent sinus pauses but asymptomatic. Patient otherwise has no complaints. Denies chest pain, palpitations, difficulty breathing, nausea, abd pain, fever/chills. Objective Active Medications: Acetaminophen (Tylenol Tab*) 650 mg PO Q4H PRN PRN Reason: MILD PAIN or TEMP > 100.4 Amlodipine Besylate (Norvasc Tab*) 5 mg PO QPM [facility] Last Admin: 02/08/20 17:58 Dose: 5 mg Atorvastatin Calcium (Lipitor*) 80 mg PO BEDTIME [facility] Last Admin: 02/08/20 20:22 Dose: 80 mg Buspirone HCl (Buspar Tab*) 10 mg PO BID [facility] Last Admin: 02/09/20 08:21 Dose: 10 mg Clopidogrel Bisulfate (Plavix Tab*) 75 mg PO DAILY [facility] Last Admin: 02/09/20 17:38 Dose: Not Given Ezetimibe (Zetia Tab*) 10 mg PO DAILY [facility] Last Admin: 02/09/20 17:38 Dose: Not Given Finasteride (Proscar Tab*) 5 mg PO QPM [facility] Last Admin: 02/08/20 17:58 Dose: 5 mg Furosemide (Lasix Tab*) 40 mg PO BID [facility] Last Admin: 02/09/20 08:21 Dose: 40 mg Heparin Sodium/Dextrose (Heparin Drip 25,000 Units(*)) 25,000 units in 500 mls @ 0 mls/hr IV PER RATE [facility]; Protocol Isosorbide Mononitrate (Imdur Er Tab*) 240 mg PO QAM [facility] Last Admin: 02/09/20 17:38 Dose: Not Given Lisinopril (Prinivil Tab*) 5 mg PO QAM [facility] Last Admin: 02/09/20 17:38 Dose: Not Given Minoxidil (Loniten Tab*) 2.5 mg PO BID [facility] Last Admin: 02/09/20 08:20 Dose: 2.5 mg Nitroglycerin (Nitroglycerin Tab 0.4 Mg*) 0.4 mg SL Q5M PRN PRN Reason: ANGINA Ondansetron HCl (Zofran Inj*) 4 mg IV Q4H PRN PRN Reason: NAUSEA/VOMITING Sertraline HCl (Zoloft*) 50 mg PO QAM [facility] Last Admin: 02/09/20 17:38 Dose: Not Given Terazosin HCl (Hytrin Cap*) 5 mg PO BEDTIME [facility] Last Admin: 02/08/20 20:22 Dose: 5 mg Vital Signs - 8 hr 02/09/20 02/09/20 02/09/20 10:56 14:55 15:11 Temperature 97.7 F 97.2 F Pulse Rate 57 75 Respiratory 19 18 19 Rate Blood Pressure 122/58 131/59 (mmHg) O2 Sat by Pulse 97 98 Oximetry 02/09/20 02/09/20 02/09/20 15:13 15:23 15:27 Temperature Pulse Rate 66 67 99 Respiratory 17 Rate Blood Pressure 116/66 140/74 139/101 (mmHg) O2 Sat by Pulse 97 94 95 Oximetry 02/09/20 02/09/20 02/09/20 15:30 15:35 15:39 Temperature Pulse Rate 77 75 75 Respiratory Rate Blood Pressure 140/91 133/72 121/79 (mmHg) O2 Sat by Pulse 94 94 93 Oximetry 02/09/20 02/09/20 02/09/20 15:45 15:50 15:55 Temperature Pulse Rate 74 63 61 Respiratory Rate Blood Pressure 131/63 118/61 110/67 (mmHg) O2 Sat by Pulse 91 89 96 Oximetry 02/09/20 02/09/20 02/09/20 15:59 16:01 16:05 Temperature Pulse Rate 61 51 62 Respiratory Rate Blood Pressure 126/68 125/70 (mmHg) O2 Sat by Pulse 91 88 Oximetry 02/09/20 02/09/20 02/09/20 16:10 16:15 16:20 Temperature Pulse Rate 61 63 59 Respiratory 19 13 Rate Blood Pressure 124/67 113/69 111/69 (mmHg) O2 Sat by Pulse 96 96 97 Oximetry 02/09/20 02/09/20 16:53 17:05 Temperature 97.4 F Pulse Rate 60 Respiratory 18 Rate Blood Pressure 122/84 134/68 (mmHg) O2 Sat by Pulse 96 Oximetry Oxygen Devices in Use Now: Nasal Cannula Appearance: Elderly white male, laying upright in bed, appearing comfortable and in NAD, minimally sedated Eyes: No Scleral Icterus, - - PERRL Ears/Nose/Mouth/Throat: Mucous Membranes Moist Neck: Trachea Midline Respiratory: Symmetrical Chest Expansion and Respiratory Effort, Clear to Auscultation Cardiovascular: NL Sounds; No Murmurs; No JVD, RRR Abdominal: - - abd soft, nontender, nondistended Extremities: No Edema, No Clubbing, Cyanosis Skin: No Rash or Ulcers Neurological: Alert and Oriented x 3 Result Diagrams: 02/09/20 17:28 02/09/20 08:47 Additional Lab and Data: Lab Results 02/08/20 Range/Units 06:05 WBC 9.4 (3.5-10.8) 10^3/uL RBC 2.86 L (4.18-5.48) 10^6 /uL Hgb 9.1 L (14.0-18.0) g/dL Hct 26 L (42-52) % MCV 91 (80-94) fL MCH 32 H (27-31) pg MCHC 35 (31-36) g/dL RDW 15 (10-15) % Plt Count 246 (150-450) 10^3/uL MPV 9.1 (7.4-10.4) fL Neut % (Auto) 86.9 % Lymph % (Auto) 5.6 % [place] % (Auto) 6.0 % Eos % (Auto) 1.2 % Baso % (Auto) 0.3 % Absolute Neuts (auto) 8.2 H (1.5-7.7) 10^3/ul Absolute Lymphs (auto) 0.5 L (1.0-4.8) 10^3/ul Absolute Monos (auto) 0.6 (0-0.8) 10^3/ul Absolute Eos (auto) 0.1 (0-0.6) 10^3/ul Absolute Basos (auto) 0.0 (0-0.2) 10^3/ul Absolute Nucleated RBC 0.0 10^3/ul Nucleated RBC % 0.0 Assess/Plan/Problems-Billing Assessment: 64 yo white male with PMHx ESRD on HD M/W/F, significant CAD hx with hx of CABG and multiple stents, recent NSTEMI earlier this month, atrial flutter, CVA, PFO clusre, HOWARD, HFpEF, and DMT2 presents with shortness of breath and right arm pain (which is his anginal equivalent). - Patient Problems (1) Shortness of breath Current Visit: Yes Status: Acute Code(s): R06.02 - SHORTNESS OF BREATH SNOMED Code(s): 921565050 Comment: -Patient presented with shortness of breath -CXR with pulmonary edema, likely related to decompensated HF and fluid overload from ESRD, further discussed below -symptomatically improved today since cardioversion (2) Acute diastolic (congestive) heart failure Current Visit: Yes Status: Acute Code(s): I50.31 - ACUTE DIASTOLIC ( CONGESTIVE) HEART FAILURE SNOMED Code(s): 209066074 Comment: -CXR with pulmonary edema -likely atrial flutter is contributing to decompensation -received IV lasix yesterday, continue po today (3) Atrial flutter Current Visit: Yes Status: Acute Code(s): I48.92 - UNSPECIFIED ATRIAL FLUTTER SNOMED Code(s): 4260073 Comment: -newly persistent atrial flutter -status post transesophageal cardioversion today -sinus rhythm since cardioversion however with frequent sinus pauses, further below -chaning eliquis to heparin gtt in anticipation of possible pacemaker, so heparin can be stopped for pacer, per Dr. Alvarez's recommendation (4) Sinus pause Current Visit: No Status: Acute Code(s): I45.5 - OTHER SPECIFIED HEART BLOCK SNOMED Code(s): 01496111 Comment: -sinus pauses were anticipated to occur after cardioversion today given prior history of sick sinus after cardioversion -frequent asymptomatic pauses now present on tele, greatest length thus far 3.6 sec -anticipating likely pacemaker, will make NPO in case placed tomorrow -transferring to ICU for closer monitoring, with zoll pads -metoprolol stopped (5) ESRD (end stage renal disease) Current Visit: No Status: Acute Priority: Medium Code(s): N18.6 - END STAGE RENAL DISEASE SNOMED Code(s): 64063206 Comment: -on HD MWF outpatient -received HD yesterday and today inpatient d/t fluid overload (6) History of CVA (cerebrovascular accident) Current Visit: Yes Status: Acute Code(s): Z86.73 - PRSNL HX OF TIA (TIA), AND CEREB INFRC W/O RESID DEFICITS SNOMED Code(s): 596091517 Comment: -continue statin -eliquis as previously discussed (7) Diabetes Current Visit: No Status: Acute Code(s): E11.9 - TYPE 2 DIABETES MELLITUS WITHOUT COMPLICATIONS SNOMED Code(s): 00267161 Comment: -diet controlled (8) Anemia Current Visit: No Status: Acute Priority: Medium Code(s): D64.9 - ANEMIA, UNSPECIFIED SNOMED Code(s): 804357096 Comment: - anemia of chronic disease related to ESRD - Dr. Sotelo ordered epo with HD yesterday (9) DVT prophylaxis Current Visit: No Status: Acute Priority: Low Onset Date: 02/01/15 Code( s): OTY1054 - SNOMED Code(s): 157454585 Comment: -heparin gtt as above (10) Full code status Current Visit: No Status: Acute Onset Date: 02/01/15 Code(s): Z78.9 - OTHER SPECIFIED HEALTH STATUS SNOMED Code(s): 261554007 Status and Disposition: inpatient pending improvement
[2020-02-09 17:51] LABS: EGFR African American 20.4 (>60); EGFR Non-African American 16.9 (>60)
[2020-02-09] MEDS ORDERED: Atropine 1MG/ML INJ* 1 ML VIAL IV PUSH PRN (18:07)
[2020-02-09] MEDS: amLODIPine TAB* 5 MG PO SCH (18:15)
[2020-02-09] MEDS: Finasteride TAB* 5 MG PO SCH (18:18)
--- NOTE | 2020-02-09 20:51 | PRO ---
CC: Dr. Beltre. PROCEDURE NOTE: DATE OF PROCEDURE: 02/09/20 PROCEDURE: Cardioversion. INDICATION: Atrial flutter. The patient is a 64-year-old gentleman with multiple medical problems including coronary artery disea se, recent stenting to his left circumflex artery, end stage renal disease, who has atrial flutter. The patient got readmitted with congestive heart failure after recent hospitalization. The patient's dialysis was increased to remove fluid, but cardioversion was recommended for maximization of hemody namics. The patient has just undergone transesophageal echocardiogram showing normal LV function, ejection fr action of 50%, no significant valvular abnormalities. He had no evidence of thrombus in his left atr ial appendage. Cardioversion was recommended. PROCEDURE IN DETAIL: The patient was in a fasting state, the patient was given an additional 2 mg of Versed for conscious sedation. The patient was cardioverted with 120 joules of synchronized biphasi c energy. The patient converted to sinus bradycardia at 65 beats per minute. The patient tolerated the procedure well and there were no complications. The patient will continue on anticoagulation. I will defer to Dr. Beltre regarding antiarrhythmic medication. [id number]/[facility] #: [id number]
[2020-02-09] MEDS: Atorvastatin* 80 MG TAB PO SCH (21:21)
[2020-02-09] MEDS: Terazosin CAP* 5 MG PO SCH (21:22)
[2020-02-10 05:59] LABS: ABS Eosinophils 0.2 10^3/ul (0-0.6); ABS Lymphocytes 0.8 10^3/ul (1.0-4.8); ABS Monocytes 0.6 10^3/ul (0-0.8); ABS Neutrophils 3.4 10^3/ul (1.5-7.7); Eosinophil % 3.6 %; Hematocrit 25 % (42-52); Hemoglobin 8.6 g/dL (14.0-18.0); Lymphocyte % 16.9 %; Mean Corpuscular HGB Conc 34 g/dL (31-36); Mean Corpuscular Hemoglobin 31 pg (27-31); Mean Corpuscular Volume 93 fL (80-94); Mean Platelet Volume 8.8 fL (7.4-10.4); Platelet Count 202 10^3/uL (150-450); Red Blood Count 2.73 10^6 /uL (4.18-5.48); Red Cell Distribution Width 14 % (10-15)
[2020-02-10 06:17] LABS: Blood Urea Nitrogen 40 mg/dL (6-24); Creatine Kinase 39 U/L (10-223)
[2020-02-10] MEDS ORDERED: ceFAZolin 2 GM PREMIX in ORs 2 GM/50 ML BAG IVPB ONE (08:52)
[2020-02-10] MEDS ORDERED: NS 0.9% 1000 ML** 1,000 ML IV SCH (09:00)
--- NOTE | 2020-02-10 09:00 | PN ---
Subjective Date of Service: 02/10/20 - CC: tachy nolvia Interval History: Pt s/p BERRY guided CV yesterday. Maintaining NSR. Pauses last evening while awake, multiple. Sinus pauses and some non conducted sinus beats, 3-4 seconds, multiple in a row. Pt denies feeling dizzy, no SOB, no fevers, chills. Pt hungry. Medications Active Medications: Acetaminophen (Tylenol Tab*) 650 mg PO Q4H PRN PRN Reason: MILD PAIN or TEMP > 100.4 Amlodipine Besylate (Norvasc Tab*) 5 mg PO QPM [facility] Last Admin: 02/09/20 18:15 Dose: Not Given Atorvastatin Calcium (Lipitor*) 80 mg PO BEDTIME [facility] Last Admin: 02/09/20 21:21 Dose: 80 mg Atropine Sulfate (Atropine 1mg/Ml Inj*) 0.5 mg IV PUSH Q3M PRN PRN Reason: BRADYCARDIA Buspirone HCl (Buspar Tab*) 10 mg PO BID [facility] Last Admin: 02/09/20 21:22 Dose: 10 mg Clopidogrel Bisulfate (Plavix Tab*) 75 mg PO DAILY [facility] Last Admin: 02/09/20 17:38 Dose: Not Given Ezetimibe (Zetia Tab*) 10 mg PO DAILY [facility] Last Admin: 02/09/20 17:38 Dose: Not Given Finasteride (Proscar Tab*) 5 mg PO QPM [facility] Last Admin: 02/09/20 18:18 Dose: 5 mg Furosemide (Lasix Tab*) 40 mg PO BID [facility] Last Admin: 02/09/20 21:22 Dose: 40 mg Heparin Sodium/Dextrose (Heparin Drip 25,000 Units(*)) 25,000 units in 500 mls @ 0 mls/hr IV PER RATE [facility]; Protocol Last Admin: 02/09/20 18:18 Dose: 30 mls/hr Cefazolin Sodium/Dextrose (Kefzol 2 Gm Premix In Ors(*)) 2 gm in 50 mls @ 100 mls/hr IVPB ONCE ONE Stop: 02/10/20 09:21 Sodium Chloride (Ns 0.9% 1000 Ml) 1,000 mls @ 25 mls/hr IV PER RATE [facility] Isosorbide Mononitrate (Imdur Er Tab*) 240 mg PO QAM [facility] Last Admin: 02/09/20 17:38 Dose: Not Given Lisinopril (Prinivil Tab*) 5 mg PO QAM [facility] Last Admin: 02/09/20 17:38 Dose: Not Given Minoxidil (Loniten Tab*) 2.5 mg PO BID [facility] Last Admin: 02/09/20 21:21 Dose: 2.5 mg Nitroglycerin (Nitroglycerin Tab 0.4 Mg*) 0.4 mg SL Q5M PRN PRN Reason: ANGINA Ondansetron HCl (Zofran Inj*) 4 mg IV Q4H PRN PRN Reason: NAUSEA/VOMITING Sertraline HCl (Zoloft*) 50 mg PO QAM [facility] Last Admin: 02/09/20 17:38 Dose: Not Given Terazosin HCl (Hytrin Cap*) 5 mg PO BEDTIME [facility] Last Admin: 02/09/20 21:22 Dose: 5 mg Objective Vital Signs: Temp Pulse Resp BP Pulse Ox 98.9 F 56 15 120/65 96 02/10/20 08:09 02/10/20 08:01 02/10/20 08:01 02/10/20 08:01 02/10/20 08:01 Oxygen Devices in Use Now: Nasal Cannula Appearance: sitting in bed, NAD. Eyes: No Scleral Icterus Ears/Nose/Mouth/Throat: NL Teeth, Lips, Gums, Mucous Membranes Moist Neck: Trachea Midline, No Thyroid Enlargement, Masses Respiratory: Symmetrical Chest Expansion and Respiratory Effort, - - inspiratory rales noted in bases. respirations are non labored. Cardiovascular: RRR, - Extremities: - - trace pretibial edema. Fistula RUE intact, +thrill. Skin: No Rash or Ulcers - sallow color c/w chronic renal disease. Neurological: Alert and Oriented x 3 Lines/Tubes/Other Access: Clean, Dry and Intact Joe, Clean, Dry and Intact Peripheral IV Laboratory Results: 02/10/20 05:48 02/10/20 05:48 INR (Anticoag Therapy) 1.32 (0.82-1.09) H 02/08/20 06:05 APTT 54.9 seconds (26.0-38.0) H 02/10/20 07:59 Total Bilirubin 0.80 mg/dL (0.2-1.0) 02/09/20 08:47 AST 18 U/L (13-39) 02/09/20 08:47 ALT 39 U/L (7-52) 02/09/20 08:47 Alkaline Phosphatase 149 U/L (34-104) H 02/09/20 08:47 B-Natriuretic Peptide 1077 pg/mL (<=100) H 02/08/20 06:05 Total Protein 6.0 g/dL (6.4-8.9) L 02/09/20 08:47 Albumin 3.7 g/dL (3.2-5.2) 02/09/20 08:47 Globulin 2.3 g/dL (2-4) 02/09/20 08:47 Albumin/Globulin Ratio 1.6 (1-3) 02/09/20 08:47 02/08/20 02/08/20 02/08/20 06:05 07:00 11:37 Troponin I 0.38 H* 0.40 H* 1.33 H* Diagnostic Imaging: Patient Name: SIVA FELIZ Medical Record#: [id number] Ordering Physician: Mendy Hawk MD Acct.#: [id number] : 1955 Age: 64 Sex: M Location: EMERGENCY DEPARTMENT Exam Date: 02/08/20556 ADM Status: REG ER Order Information: CHEST AP/PORT Accession Number: [id number] CPT: 55089 INDICATION: Chest pain COMPARISON: February 02, 2020 TECHNIQUE: Upright AP 0630 hours REPORT: Bilateral patchy alveolar opacities. Grossly clear pleural spaces. Negative for pneumothorax. Cardiomegaly. Prominent ill-defined central pulmonary vasculature. Median sternotomy wires. IMPRESSION: #. Pulmonary vascular congestion. #. Peripheral pulmonary infiltrates concerning for pneumonia in the appropriate clinical context. Correlate with clinical assessment. Results discussed with Dr. Little at 02/08/2020 8:20 AM EDT <Electronically signed by Chico Blake MD in OV> 02/08/20820 Dictated By: Chico Blake MD Dictated Date/Time: 02/08/20815 Transcribed Date/Time: 02/08/20815 Copy to: BERRY: *[facility]* [place] [address] Fax #: [phone] Transesophageal Echocardiogram Patient: Siva Feliz : 1955 Study Date: 02/09/2020 Age: 64 Gender: M HR: 78 bpm Height: 72 in /182.9 cm BSA: 2.28 m^2 Weight: 234.5 lb /106.6 kg BMI: 31.9 kg/m^2 *[employer] Operator: Lizet Harrison RD RN *Referring Physician: * Amy Epperson *Reading Physician: * Micheal Salvador MD Indications: Atrial Flutter. History: Coronary artery disease. CABG. PCI. Repair of patent foramen ovale. HOWARD. ESRD on dialysis. Risk factors: Hypertension. Dyslipidemia. Conclusions Summary: - Left ventricle: Systolic function is normal. The estimated ejection fraction is 55-60%. Wall motion is normal; there are no regional wall motion abnormalities. - Left atrium: There is no evidence of a thrombus in the atrial cavity or appendage. - Atrial septum: A closure device is present. A bubble study was not performed. - Mitral valve: There is mild regurgitation. - Aortic valve: There is no evidence of stenosis. There is no significant regurgitation. - Tricuspid valve: There is mild regurgitation. - Ascending aorta: The ascending aorta is mildly dilated at 3.6 cm. There is mild atherosclerotic plaque seen in the visualized This report is only to be considered final once signed by the Provider(s) as displayed in the "<Electronically Signed by >" field (s). Absence of a signature indicates the report is in a draft status and still needs to be finalized. In the event this document was created by someone other than the signing Provider, the individual initiating the document will be listed in the "Entered by:" or "Dictated by:" ortiz. EKG Data: Telemetry reviewed. 02/09/2020-02/10/2020: NSR 70's, 80's to sinus pauses up to 4 seconds, more rarely non conducted sinus beats. Assessment/Plan 64 yo male with ESRD on HD, CAD with recent stenting, new atrial flutter, did not tolerate, HFpEF, day 1 s/p electrical CV now with significant SSS, recurrent pauses awake (and hx of this in the past). #1 AFL; Chads Vasc 7 on renal dose Eliquis-on HOLD FOR PACER. Resume post implant. Will discuss antiarrhythmic agents OK with ESRD such as amiodarone with Dr Beltre following pacer implant (patients regular filer metal patterns). SSS: Pacer implant today, high risk bleeding due to Eliquis and Plavix, but don 't plan on waiting 7 days off Plavix, proceed today. #2 Decompensated DHF; Improved today post CV and HD yesterday. Continue meds. #3 h/o CAD with recent NSTEMI due to early restensosis to proximal Lcx and Ramus requiring kissing MARGARET placement to proximal Lcx and ramus kissing fashion extending back into LM. Now on Plavix 75/day in combination with Eliquis 2.5mg PO BID. Per relook [facility] 02/01/2020; He lost collateral flow to proximal PDA which has produced angina however, he is on Imdur therapy and Norvasc therapy. Currently pain free. No ST elevation to suggest instent thrombosis. Continue medical therapy. Meds on hold this AM for pacer implant, resume post. #4 h/o ESRD on HD; nephrology following. ADDENDUM: S/p pacer implant. Hold blood thinners until AM. Discussed with DR Beltre antiarrhythmic options, plan: metoprolol for flutter and will protect w/CAD.
[2020-02-10] MEDS: Clopidogrel TAB* 75 MG PO SCH (09:01)
[2020-02-10] MEDS: Furosemide TAB* 40 MG PO SCH ×2 (09:02→20:05)
[2020-02-10] MEDS: Isosorbide Mononitrate ER TAB* 60 MG PO SCH (09:02)
[2020-02-10] MEDS: Lisinopril TAB* 5 MG PO SCH (09:02)
[2020-02-10] MEDS: Ezetimibe TAB* 10 MG PO SCH (09:09)
[2020-02-10] MEDS: MinoXIDil TAB* 2.5 MG TAB PO SCH ×2 (09:09→22:10)
[2020-02-10] MEDS: Sertraline* 50 MG TAB PO SCH (09:09)
[2020-02-10] MEDS: busPIRone TAB* 10 MG PO SCH ×2 (09:09→20:05)
[2020-02-10] MEDS ORDERED: fentaNYL* 50 MCG/ML 2 ML VIAL (100 MCG VIAL) ONE (09:53)
[2020-02-10] MEDS ORDERED: Iohexol 300* (CONTRAST) 10 ML SDV ONE (09:54)
[2020-02-10] MEDS ORDERED: Midazolam* 1 MG/ML 5 ML VIAL (5 MG) ONE (09:54)
[2020-02-10] MEDS ORDERED: Lidocaine 1% INJ* 10 MG/ML 30 ML SDV ONE (10:19)
--- NOTE | 2020-02-10 13:40 | PN ---
Progress Note - Progress Note Date of Service: 02/10/20 Note: Progress Note -- Critical Care 24 hour events/significant events: - admitted to ICU yesterday for monitoring after experiencing significant cardiac pauses ROS: ROS unable to be obtained secondary since patient is off floor getting pacemaker Tele: sinus bradycardia Vitals: Vital Signs 02/09/20 02/09/20 02/09/20 14:55 15:11 15:13 Temperature 97.2 F Pulse Rate 75 66 Respiratory 18 19 17 Rate Blood Pressure 131/59 116/66 (mmHg) O2 Sat by Pulse 98 97 Oximetry 02/09/20 02/09/20 02/09/20 15:23 15:27 15:30 Temperature Pulse Rate 67 99 77 Respiratory Rate Blood Pressure 140/74 139/101 140/91 (mmHg) O2 Sat by Pulse 94 95 94 Oximetry 02/09/20 02/09/20 02/09/20 15:35 15:39 15:45 Temperature Pulse Rate 75 75 74 Respiratory Rate Blood Pressure 133/72 121/79 131/63 (mmHg) O2 Sat by Pulse 94 93 91 Oximetry 02/09/20 02/09/20 02/09/20 15:50 15:55 15:59 Temperature Pulse Rate 63 61 61 Respiratory Rate Blood Pressure 118/61 110/67 126/68 (mmHg) O2 Sat by Pulse 89 96 91 Oximetry 02/09/20 02/09/20 02/09/20 16:01 16:05 16:10 Temperature Pulse Rate 51 62 61 Respiratory Rate Blood Pressure 125/70 124/67 (mmHg) O2 Sat by Pulse 88 96 Oximetry 02/09/20 02/09/20 02/09/20 16:15 16:20 16:53 Temperature 97.4 F Pulse Rate 63 59 60 Respiratory 19 13 18 Rate Blood Pressure 113/69 111/69 122/84 (mmHg) O2 Sat by Pulse 96 97 96 Oximetry 02/09/20 02/09/20 02/09/20 17:05 17:36 17:50 Temperature 97.4 F Pulse Rate 47 52 Respiratory 21 18 Rate Blood Pressure 134/68 120/72 125/65 (mmHg) O2 Sat by Pulse 99 98 Oximetry 02/09/20 02/09/20 02/09/20 18:00 18:15 18:31 Temperature Pulse Rate 62 62 61 Respiratory 20 20 23 Rate Blood Pressure 120/72 126/69 137/64 (mmHg) O2 Sat by Pulse 99 97 99 Oximetry 02/09/20 02/09/20 02/09/20 18:46 19:00 19:02 Temperature Pulse Rate 65 66 57 Respiratory 24 23 21 Rate Blood Pressure 137/80 141/78 (mmHg) O2 Sat by Pulse 100 99 95 Oximetry 02/09/20 02/09/20 02/09/20 19:42 19:44 20:00 Temperature 98.6 F Pulse Rate 52 Respiratory 20 16 Rate Blood Pressure (mmHg) O2 Sat by Pulse 97 Oximetry 02/09/20 02/09/20 02/09/20 20:01 21:00 21:01 Temperature Pulse Rate 62 69 51 Respiratory 15 14 17 Rate Blood Pressure 117/64 132/78 (mmHg) O2 Sat by Pulse 97 97 98 Oximetry 02/09/20 02/09/20 02/10/20 22:00 23:00 00:00 Temperature Pulse Rate 60 61 67 Respiratory 20 25 26 Rate Blood Pressure 126/66 109/48 120/71 (mmHg) O2 Sat by Pulse 95 94 96 Oximetry 02/10/20 02/10/20 02/10/20 01:00 02:00 03:00 Temperature Pulse Rate 51 51 49 Respiratory 17 14 26 Rate Blood Pressure 123/63 110/57 111/54 (mmHg) O2 Sat by Pulse 94 95 96 Oximetry 02/10/20 02/10/20 02/10/20 04:00 05:00 05:54 Temperature Pulse Rate 54 59 Respiratory 18 20 15 Rate Blood Pressure 122/57 140/65 (mmHg) O2 Sat by Pulse 96 98 Oximetry 02/10/20 02/10/20 02/10/20 06:00 07:00 08:00 Temperature Pulse Rate 61 56 48 Respiratory 16 21 22 Rate Blood Pressure 134/73 139/63 (mmHg) O2 Sat by Pulse 98 96 97 Oximetry 02/10/20 02/10/20 02/10/20 08:01 08:09 09:00 Temperature 98.9 F Pulse Rate 56 47 Respiratory 15 18 Rate Blood Pressure 120/65 (mmHg) O2 Sat by Pulse 96 96 Oximetry 02/10/20 02/10/20 10:00 12:43 Temperature Pulse Rate 48 61 Respiratory 16 23 Rate Blood Pressure 119/70 (mmHg) O2 Sat by Pulse 94 92 Oximetry Intake and Output Last 24 Hours 02/08/20 02/09/20 02/10/20 02/11/20 06:59 06:59 06:59 06:59 Intake Total 840 1671 Output Total 750 500 Balance 90 1171 Weight 200 lb 235 lb 12.8 oz 227 lb 6.4 oz Intake: Medicated IV 100 heparin 100 Heparin 261 Oral 840 1310 Output: Chauhan 750 500 O2: 2LNC Infusions: heparin gtt Medications: Acetaminophen (Tylenol Tab*) 650 mg PO Q4H PRN PRN Reason: MILD PAIN or TEMP > 100.4 Amlodipine Besylate (Norvasc Tab*) 5 mg PO QPM [facility] Last Admin: 02/09/20 18:15 Dose: Not Given Atorvastatin Calcium (Lipitor*) 80 mg PO BEDTIME [facility] Last Admin: 02/09/20 21:21 Dose: 80 mg Buspirone HCl (Buspar Tab*) 10 mg PO BID [facility] Last Admin: 02/10/20 09:09 Dose: 10 mg Clopidogrel Bisulfate (Plavix Tab*) 75 mg PO DAILY [facility] Last Admin: 02/10/20 09:01 Dose: Not Given Ezetimibe (Zetia Tab*) 10 mg PO DAILY [facility] Last Admin: 02/10/20 09:09 Dose: 10 mg Finasteride (Proscar Tab*) 5 mg PO QPM [facility] Last Admin: 02/09/20 18:18 Dose: 5 mg Furosemide (Lasix Tab*) 40 mg PO BID [facility] Last Admin: 02/10/20 09:02 Dose: Not Given Sodium Chloride (Ns 0.9% 1000 Ml) 1,000 mls @ 25 mls/hr IV PER RATE [facility] Cefazolin Sodium 500 mg/ (Sodium Chloride) 50 mls @ 200 mls/hr IVPB Q24H [facility] Stop: 02/14/20 09:00 Isosorbide Mononitrate (Imdur Er Tab*) 240 mg PO QAM [facility] Last Admin: 02/10/20 09:02 Dose: Not Given Lisinopril (Prinivil Tab*) 5 mg PO QAM [facility] Last Admin: 02/10/20 09:02 Dose: Not Given Minoxidil (Loniten Tab*) 2.5 mg PO BID [facility] Last Admin: 02/10/20 09:09 Dose: 2.5 mg Nitroglycerin (Nitroglycerin Tab 0.4 Mg*) 0.4 mg SL Q5M PRN PRN Reason: ANGINA Ondansetron HCl (Zofran Inj*) 4 mg IV Q4H PRN PRN Reason: NAUSEA/VOMITING Oxycodone/Acetaminophen (Percocet 5/325 Tab*) 1 tab PO Q4H PRN PRN Reason: PAIN - SEVERE Sertraline HCl (Zoloft*) 50 mg PO QAM [facility] Last Admin: 02/10/20 09:09 Dose: 50 mg Terazosin HCl (Hytrin Cap*) 5 mg PO BEDTIME [facility] Last Admin: 02/09/20 21:22 Dose: 5 mg Physical Exam: Unable to examine since he is off floor getting his pacemaker Labs: Laboratory Results - last 24 hr 02/09/20 02/09/20 02/09/20 17:28 17:28 17:28 WBC 3.9 RBC 2.92 L Hgb 9.2 L Hct 27 L MCV 92 MCH 32 H MCHC 34 RDW 15 Plt Count 225 MPV 8.6 Neut % (Auto) 65.4 Lymph % (Auto) 18.8 [place] % (Auto) 10.8 Eos % (Auto) 3.9 Baso % (Auto) 1.1 Absolute Neuts (auto) 2.5 Absolute Lymphs (auto) 0.7 L Absolute Monos (auto) 0.4 Absolute Eos (auto) 0.2 Absolute Basos (auto) 0.0 Absolute Nucleated RBC 0.0 Nucleated RBC % 0.0 APTT 37.6 BUN 28 H Creatinine 3.63 H Est GFR ( Amer) 20.4 Est GFR (Non-Af Amer) 16.9 Total Creatine Kinase 02/10/20 02/10/20 02/10/20 00:38 05:48 05:48 WBC 5.0 RBC 2.73 L Hgb 8.6 L Hct 25 L MCV 93 MCH 31 MCHC 34 RDW 14 Plt Count 202 MPV 8.8 Neut % (Auto) 67.4 Lymph % (Auto) 16.9 [place] % (Auto) 11.3 Eos % (Auto) 3.6 Baso % (Auto) 0.8 Absolute Neuts (auto) 3.4 Absolute Lymphs (auto) 0.8 L Absolute Monos (auto) 0.6 Absolute Eos (auto) 0.2 Absolute Basos (auto) 0.0 Absolute Nucleated RBC 0.0 Nucleated RBC % 0.0 APTT 49.0 H BUN 40 H Creatinine Est GFR ( Amer) Est GFR (Non-Af Amer) Total Creatine Kinase 39 02/10/20 07:59 WBC RBC Hgb Hct MCV MCH MCHC RDW Plt Count MPV Neut % (Auto) Lymph % (Auto) [place] % (Auto) Eos % (Auto) Baso % (Auto) Absolute Neuts (auto) Absolute Lymphs (auto) Absolute Monos (auto) Absolute Eos (auto) Absolute Basos (auto) Absolute Nucleated RBC Nucleated RBC % APTT 54.9 H BUN Creatinine Est GFR ( Amer) Est GFR (Non-Af Amer) Total Creatine Kinase Imaging: None currently Assessment: 64M with known medical history of CVA, CABD, GI bleed, ESRD on HD, urinary retention with chronic chauhan, DM2, recently discharged after a 2 week hospital stay for NSTEMI s/p re-stent of instent stenosis. He presents on after being on discharged 02/04/20 with complaints of worsening SOB and fatigue. Found to have symptomatic afib RVR and was cardioverted 02/08. After, he started experiencing bradycardia with cardiac pauses. He was transferred to ICU overnight Plan: Neuro- - No active issues -Delirium prec; avoid BDZ CVS- - Cardiac pauses: acute. d/p cardioversion for afib RVR. Monitored overnight in ICU, pauses have decreased in number and patient is currently getting his pacemaker. BP has remained stable. He may go to floor if pacemaker insertion goes well -Maintain MAP>65 Resp- -Wean Fio2 to keep sat>92% -Aspiration prec, Pulmonary Toilet ID- - No active issues GI- -Nutrition: NPO for procedure -GI prophylaxis not indicated Renal- -strict I/O, replete to keep K>4, Mg>2 -chronic chauhan Heme- - On a heparin gtt, on eliquis at home for atrial flutter, stroke prevention Endo-Maintain BG<200, insulin protocol as needed Musculsk- pressure ulcer prophylaxis Wounds- none Nutrition- NPO DVT prophylaxis: heparin gtt, SCDs Chauhan Catheter: chronic Disposition: Patient is stable for floor transfer Patient clinical status: stable Code Status: full
[2020-02-10] MEDS ORDERED: Furosemide TAB* 40 MG PO ONE (14:00)
[2020-02-10] MEDS ORDERED: Lisinopril TAB* 5 MG PO ONE (14:00)
[2020-02-10] MEDS ORDERED: Isosorbide Mononitrate ER TAB* 60 MG PO ONE (14:00)
--- NOTE | 2020-02-10 14:05 | OP ---
CC: Dr. Lg Beltre OPERATIVE REPORT: DATE OF OPERATION: 02/10/20 DATE OF : 51 SURGEON: Nora Verde MD ANESTHESIA: MAC. PRE-OP DIAGNOSIS: Sick sinus syndrome with tachybrady. POST-OP DIAGNOSIS: Sick sinus syndrome with tachybrady. OPERATIVE PROCEDURE: Dual-chamber pacemaker implantation. ESTIMATED BLOOD LOSS: Less than 5 cc. COMPLICATIONS: None. DESCRIPTION OF PROCEDURE: The indications, risks, and benefits of the procedure were discussed with the patient and he was amenable to proceeding. The patient is right-handed and has a dialysis fistula on the right upper extremity and the decision was made to place the pacemaker in the left shoulder. The left shoulder was prepped and draped in the usual sterile fashion , a time-out was called. The patient received a total of 5 mg of Versed and 50 mcg of fentanyl throughout the procedure as well as 1% lidocaine for local anesthesia. Following the time-out, 10 cc of radiopaque dye was injected in the left upper extremity outlining the left axillary and left subclavian vein. Following this , local lidocaine was infused and using a 10-blade knife, a 2.5 cm incision was made in the left subclavian fossa. Using Bovie and blunt dissection, it was extended to the level of the pectoralis muscle. A syed was made and additional lidocaine infused inferiorly, medially and using blunt dissection, a small pocket was made. Using a modified Seldinger technique, the left subclavian vein was cannulated and a guidewire inserted using fluoroscopic guidance. A second guidewire was inserted, I took a second stick, was unable to pass the guidewire through the first. Using an introducer technique, the right ventricular lead was guided into the right ventricle to the septum, actively fixed in place, pacing and sensing thresholds adequate. Using the second guidewire and a second introducer, the atrial lead was placed into the area of the appendage. It was hard to find anything that had the classic window shield appearance. The lead was actively fixed in place, but did not hold and it took a second physician to find adequate sensing and pacing thresholds. Following this, the leads were stitched to the pocket using silk suture. The pocket was then copiously irrigated. The leads were cleaned. The leads were attached to the generator. There was a very small area in the incision itself medially and superiorly that was oozing, but this was cauterized. The pocket itself was dry. Because of his need for Plavix and Eliquis pre and postop, Arixtra powder was placed to maintain hemostasis. Because of increased infectious risk with hemodialysis, antibiotic pouch was then placed over the device. The device was placed in the pocket and the incision was closed using 2 layers of resorbable suture, 2-0 followed by 4-0 followed by amy and external dressing. FINDINGS: The system is a [employer] MRI compatible pacer system. The pacer is a [employer] Timken XT DR MRI, model W1DR01, serial number [id number]. The atrial lead is a Medtronic, model 5076-52, serial number [id number]. The ventricular lead is a Medtronic model 5076-58, serial number [id number]. P-waves were sensed at 0.9 millivolts with atrial lead impedance of 503 ohms and an atrial pacing threshold of 0.8 volts at 0.5 milliseconds. R-waves are sensed at 3.7 millivolts with a ventricular lead impedance of 795 ohms and a ventricular pacing threshold of 1.1 volts at 0.5 milliseconds. Thresholds with a device in the pocket, atrial lead impedance 380 ohms, P-waves measured at 0.9 millivolts and ventricular pacing thresholds 0.75 volts at 0.4 milliseconds. R-wave sensed at 9.4 millivolts with a ventricular lead impedance 551 ohms and a ventricular pacing threshold of 0.5 volts at 0.4 milliseconds. The patient was hemodynamically stable throughout the procedure and during recovery. CONCLUSION: Successful dual-chamber pacemaker implantation. No complications. [id number]/[facility] #: [id number]
[2020-02-10] MEDS: oxyCODONE/Acetamin 5/325 MG* TAB PO PRN ×2 (16:15→22:10)
[2020-02-10] MEDS: Metoprolol Succinate XL TAB* 25 MG PO SCH (16:15)
--- NOTE | 2020-02-10 16:29 | PN ---
Subjective Date of Service: 02/10/20 Interval History: Patient evaluated after pacemaker placement. He is in poor spirits. He is upset his won't be able to visit due to the COVRI-19 policy. Patient mentioned when he laid down he felt short of breath. He and his describe that for approx the last month he has frequently been waking up feeling short of breath in the middle of the night. Patient denies chest pain, SOB at time of evaluation , fever/chills, abd pain. Objective Active Medications: Acetaminophen (Tylenol Tab*) 650 mg PO Q4H PRN PRN Reason: MILD PAIN or TEMP > 100.4 Amlodipine Besylate (Norvasc Tab*) 5 mg PO QPM [facility] Last Admin: 02/09/20 18:15 Dose: Not Given Apixaban (Eliquis*) 2.5 mg PO BID [facility] Atorvastatin Calcium (Lipitor*) 80 mg PO BEDTIME [facility] Last Admin: 02/09/20 21:21 Dose: 80 mg Buspirone HCl (Buspar Tab*) 10 mg PO BID [facility] Last Admin: 02/10/20 09:09 Dose: 10 mg Clopidogrel Bisulfate (Plavix Tab*) 75 mg PO DAILY [facility] Ezetimibe (Zetia Tab*) 10 mg PO DAILY [facility] Last Admin: 02/10/20 09:09 Dose: 10 mg Finasteride (Proscar Tab*) 5 mg PO QPM [facility] Last Admin: 02/09/20 18:18 Dose: 5 mg Furosemide (Lasix Tab*) 40 mg PO BID [facility] Last Admin: 02/10/20 09:02 Dose: Not Given Cefazolin Sodium 500 mg/ (Sodium Chloride) 50 mls @ 200 mls/hr IVPB Q24H [facility] Stop: 02/14/20 09:00 Isosorbide Mononitrate (Imdur Er Tab*) 240 mg PO QAM [facility] Last Admin: 02/10/20 09:02 Dose: Not Given Lisinopril (Prinivil Tab*) 5 mg PO QAM [facility] Last Admin: 02/10/20 09:02 Dose: Not Given Metoprolol Succinate (Toprol Xl Tab*) 25 mg PO DAILY [facility] Last Admin: 02/10/20 16:15 Dose: 25 mg Minoxidil (Loniten Tab*) 2.5 mg PO BID [facility] Last Admin: 02/10/20 09:09 Dose: 2.5 mg Nitroglycerin (Nitroglycerin Tab 0.4 Mg*) 0.4 mg SL Q5M PRN PRN Reason: ANGINA Ondansetron HCl (Zofran Inj*) 4 mg IV Q4H PRN PRN Reason: NAUSEA/VOMITING Oxycodone/Acetaminophen (Percocet 5/325 Tab*) 1 tab PO Q4H PRN PRN Reason: PAIN - SEVERE Last Admin: 02/10/20 16:15 Dose: 1 tab Sertraline HCl (Zoloft*) 50 mg PO QAM [facility] Last Admin: 02/10/20 09:09 Dose: 50 mg Terazosin HCl (Hytrin Cap*) 5 mg PO BEDTIME [facility] Last Admin: 02/09/20 21:22 Dose: 5 mg Vital Signs - 8 hr 02/10/20 02/10/20 02/10/20 09:00 10:00 12:43 Temperature Pulse Rate 47 48 61 Respiratory 18 16 23 Rate Blood Pressure 119/70 (mmHg) O2 Sat by Pulse 96 94 92 Oximetry 02/10/20 02/10/20 13:23 16:15 Temperature 97.7 F Pulse Rate 64 Respiratory 16 16 Rate Blood Pressure 177/81 (mmHg) O2 Sat by Pulse 97 Oximetry Oxygen Devices in Use Now: None Appearance: Elderly, white male, laying in hospital bed, appearing comfortable and in NAD Eyes: No Scleral Icterus, - - PERRL Ears/Nose/Mouth/Throat: Mucous Membranes Moist Neck: Trachea Midline Respiratory: Symmetrical Chest Expansion and Respiratory Effort, Clear to Auscultation Cardiovascular: NL Sounds; No Murmurs; No JVD, RRR Abdominal: - - abd soft, nontender, nondistended Extremities: No Edema, No Clubbing, Cyanosis Skin: No Rash or Ulcers Neurological: Alert and Oriented x 3 Result Diagrams: 02/10/20 05:48 02/10/20 05:48 Additional Lab and Data: Lab Results 02/08/20 Range/Units 06:05 WBC 9.4 (3.5-10.8) 10^3/uL RBC 2.86 L (4.18-5.48) 10^6 /uL Hgb 9.1 L (14.0-18.0) g/dL Hct 26 L (42-52) % MCV 91 (80-94) fL MCH 32 H (27-31) pg MCHC 35 (31-36) g/dL RDW 15 (10-15) % Plt Count 246 (150-450) 10^3/uL MPV 9.1 (7.4-10.4) fL Neut % (Auto) 86.9 % Lymph % (Auto) 5.6 % [place] % (Auto) 6.0 % Eos % (Auto) 1.2 % Baso % (Auto) 0.3 % Absolute Neuts (auto) 8.2 H (1.5-7.7) 10^3/ul Absolute Lymphs (auto) 0.5 L (1.0-4.8) 10^3/ul Absolute Monos (auto) 0.6 (0-0.8) 10^3/ul Absolute Eos (auto) 0.1 (0-0.6) 10^3/ul Absolute Basos (auto) 0.0 (0-0.2) 10^3/ul Absolute Nucleated RBC 0.0 10^3/ul Nucleated RBC % 0.0 Assess/Plan/Problems-Billing Assessment: 64 yo white male with PMHx ESRD on HD M/W/F, significant CAD hx with hx of CABG and multiple stents, recent NSTEMI earlier this month, atrial flutter, CVA, PFO clusre, HOWARD, HFpEF, and DMT2 presents with shortness of breath and right arm pain (which is his anginal equivalent). - Patient Problems (1) Shortness of breath Current Visit: Yes Status: Acute Code(s): R06.02 - SHORTNESS OF BREATH SNOMED Code(s): 176551478 Comment: -Patient presented with shortness of breath -CXR with pulmonary edema, likely related to decompensated HF and fluid overload from ESRD, further discussed below -improved yesterday but occurred once today -questioning if anxiety is a component -not hypoxic -ordering overnight pulse oximetry (2) Acute diastolic (congestive) heart failure Current Visit: Yes Status: Acute Code(s): I50.31 - ACUTE DIASTOLIC ( CONGESTIVE) HEART FAILURE SNOMED Code(s): 540384587 Comment: -CXR with pulmonary edema -likely atrial flutter is contributing to decompensation -continue po lasix -HD planned for tomorrow (3) Atrial flutter Current Visit: Yes Status: Acute Code(s): I48.92 - UNSPECIFIED ATRIAL FLUTTER SNOMED Code(s): 8185302 Comment: -newly persistent atrial flutter at presentation -status post transesophageal cardioversion 02/09/20 -sinus rhythm since cardioversion however with frequent sinus pauses (likely 2/ 2 sick sinus), which have sinced resolved with pacemaker placement today -holding eliquis tonight and will restart tomorrow AM per Dr. Verde (4) Sinus pause Current Visit: No Status: Acute Code(s): I45.5 - OTHER SPECIFIED HEART BLOCK SNOMED Code(s): 76904935 Comment: -resolved with pacemaker placement today (5) ESRD (end stage renal disease) Current Visit: No Status: Acute Priority: Medium Code(s): N18.6 - END STAGE RENAL DISEASE SNOMED Code(s): 02173678 Comment: -on HD MWF outpatient -received HD two days in a row earlier during this hospitalization -HD planned for tomorrow (6) History of CVA (cerebrovascular accident) Current Visit: Yes Status: Acute Code(s): Z86.73 - PRSNL HX OF TIA (TIA), AND CEREB INFRC W/O RESID DEFICITS SNOMED Code(s): 318238806 Comment: -continue statin -eliquis as previously discussed -will hold plavix until tomorrow AM as per Dr. Verde (7) Diabetes Current Visit: No Status: Acute Code(s): E11.9 - TYPE 2 DIABETES MELLITUS WITHOUT COMPLICATIONS SNOMED Code(s): 20056783 Comment: -diet controlled (8) Anemia Current Visit: No Status: Acute Priority: Medium Code(s): D64.9 - ANEMIA, UNSPECIFIED SNOMED Code(s): 026032856 Comment: - anemia of chronic disease related to ESRD - Dr. Sotelo ordered epo with HD 02/08/20 (9) DVT prophylaxis Current Visit: No Status: Acute Priority: Low Onset Date: 02/01/15 Code( s): NNO2704 - SNOMED Code(s): 881053848 Comment: -SCDs -will restart eliquis tomorrow (10) Full code status Current Visit: No Status: Acute Onset Date: 03/10/15 Code(s): Z78.9 - OTHER SPECIFIED HEALTH STATUS SNOMED Code(s): 894078654 Status and Disposition: inpatient pending improvement
--- NOTE | 2020-02-10 16:48 | PN ---
Progress Note - Progress Note Date of Service: 02/10/20 - Nephrology Follow Up Note: Chief complaint: End-stage kidney disease on hemodialysis Saturday Interval history. Conner underwent cardioversion yesterday and after that he was found to have significant cardiac pauses. He had a pacemaker placed today. He had 2 dialysis treatments in a row yesterday and the day before yesterday with a total of 8 L volume removal. At the end of the treatment yesterday he had cramps. Because of this mornings procedure we are rescheduling his regular dialysis treatment for tomorrow. At the time of my visit he is still on bed rest. He is not in a good mood because his will not be able to visit him due to the parsons virus measures. He is in no respiratory distress. There are no acid base and electrolytes drawn today. Because he was dialyzed 2 days in a row I do not expect his numbers to be a lot different especially that he was not allowed to eat after midnight for the pacemaker procedure. Review of systems: No fevers, chills, nausea, vomiting or diarrhea. He has a Joe catheter with clear urine in the back. No gross hematuria. active meds. Acetaminophen (Tylenol Tab*) 650 mg PO Q4H PRN PRN Reason: MILD PAIN or TEMP > 100.4 Amlodipine Besylate (Norvasc Tab*) 5 mg PO QPM [facility] Last Admin: 02/09/20 18:15 Dose: Not Given Apixaban (Eliquis*) 2.5 mg PO BID [facility] Atorvastatin Calcium (Lipitor*) 80 mg PO BEDTIME [facility] Last Admin: 02/09/20 21:21 Dose: 80 mg Buspirone HCl (Buspar Tab*) 10 mg PO BID [facility] Last Admin: 02/10/20 09:09 Dose: 10 mg Clopidogrel Bisulfate (Plavix Tab*) 75 mg PO DAILY [facility] Ezetimibe (Zetia Tab*) 10 mg PO DAILY [facility] Last Admin: 02/10/20 09:09 Dose: 10 mg Finasteride (Proscar Tab*) 5 mg PO QPM [facility] Last Admin: 02/09/20 18:18 Dose: 5 mg Furosemide (Lasix Tab*) 40 mg PO BID [facility] Last Admin: 02/10/20 09:02 Dose: Not Given Cefazolin Sodium 500 mg/ (Sodium Chloride) 50 mls @ 200 mls/hr IVPB Q24H [facility] Stop: 02/14/20 09:00 Isosorbide Mononitrate ([facility]ur Er Tab*) [facility] [place] Admin: 02/10/20 09:02 Dose: Not Given Lisinopril (Prinivil Tab*) 5 mg PO QAM [facility] Last Admin: 02/10/20 09:02 Dose: Not Given Metoprolol Succinate (Toprol Xl Tab*) 25 mg PO DAILY [facility] Last Admin: 02/10/20 16:15 Dose: 25 mg Minoxidil (Loniten Tab*) 2.5 mg PO BID [facility] Last Admin: 02/10/20 09:09 Dose: 2.5 mg Nitroglycerin (Nitroglycerin Tab 0.4 Mg*) 0.4 mg SL Q5M PRN PRN Reason: ANGINA Ondansetron HCl (Zofran Inj*) 4 mg IV Q4H PRN PRN Reason: NAUSEA/VOMITING Oxycodone/Acetaminophen (Percocet 5/325 Tab*) 1 tab PO Q4H PRN PRN Reason: PAIN - SEVERE Last Admin: 02/10/20 16:15 Dose: 1 tab Sertraline HCl (Zoloft*) 50 mg PO [facility] Last Admin: 02/10/20 09:09 Dose: 50 mg Terazosin HCl (Hytrin Cap*) 5 mg PO BEDTIME [facility] Last Admin: 02/09/20 21:22 Dose: 5 mg Physical exam: Temp Pulse Resp BP SpO2 FiO2 97.7 F 64 16 177/81 97 02/10/20 13:23 02/10/20 13:23 02/10/20 16:15 02/10/20 13:23 02/10/20 13:23 Constitutional: No acute distress Alert and oriented 3, Neurological seems to be intact. No lower extremities edema. Abnormal Lab Results 02/09/20 02/09/20 02/09/20 17:28 17:28 17:28 WBC 3.9 RBC 2.92 L Hgb 9.2 L Hct 27 L MCV 92 MCH 32 H MCHC 34 RDW 15 Plt Count 225 MPV 8.6 Neut % (Auto) 65.4 Lymph % (Auto) 18.8 Hughes % (Auto) 10.8 Eos % (Auto) 3.9 Baso % (Auto) 1.1 Absolute Neuts (auto) 2.5 Absolute Lymphs (auto) 0.7 L Absolute Monos (auto) 0.4 Absolute Eos (auto) 0.2 Absolute Basos (auto) 0.0 Absolute Nucleated RBC 0.0 Nucleated RBC % 0.0 APTT 37.6 BUN 28 H Creatinine 3.63 H Est GFR ( Amer) 20.4 Est GFR (Non-Af Amer) 16.9 Total Creatine Kinase 02/10/20 02/10/20 02/10/20 00:38 05:48 05:48 WBC 5.0 RBC 2.73 L Hgb 8.6 L Hct 25 L MCV 93 MCH 31 MCHC 34 RDW 14 Plt Count 202 MPV 8.8 Neut % (Auto) 67.4 Lymph % (Auto) 16.9 Hughes % (Auto) 11.3 Eos % (Auto) 3.6 Baso % (Auto) 0.8 Absolute Neuts (auto) 3.4 Absolute Lymphs (auto) 0.8 L Absolute Monos (auto) 0.6 Absolute Eos (auto) 0.2 Absolute Basos (auto) 0.0 Absolute Nucleated RBC 0.0 Nucleated RBC % 0.0 APTT 49.0 H BUN 40 H Creatinine Est GFR ( Amer) Est GFR (Non-Af Amer) Total Creatine Kinase 39 A/P: 1.End-stage kidney disease due to HTN, on hemodialysis Saturday, Saturday. Dialysis held today because of his pacemaker placement procedure. We will dialyze him tomorrow and probably on Saturday if he will still be in the hospital. 2. Coronary artery disease/ atrial flutter/Acute on chronic Diastolic heart failure. He seems to be euvolemic today. He is status post transesophageal cardioversion and pacemaker placement. 3. Hypertension. Much improved with volume removal. 4. Anemia of end-stage kidney disease. We will continue erythropoietin stimulating agent with dialysis.
[2020-02-10] MEDS: Finasteride TAB* 5 MG PO SCH (18:30)
[2020-02-10] MEDS: amLODIPine TAB* 5 MG PO SCH (18:30)
[2020-02-10] MEDS ORDERED: Furosemide IV* 10 MG/ML 10 ML VIAL (100 MG) IV ONE (18:47)
[2020-02-10] MEDS: Terazosin CAP* 5 MG PO SCH (20:04)
[2020-02-10] MEDS: Atorvastatin* 80 MG TAB PO SCH (20:04)
[2020-02-11] MEDS: oxyCODONE/Acetamin 5/325 MG* TAB PO PRN ×3 (03:27→12:25)
[2020-02-11] MEDS: Sertraline* 50 MG TAB PO SCH (07:27)
[2020-02-11] MEDS: Lisinopril TAB* 5 MG PO SCH (07:27)
[2020-02-11] MEDS: busPIRone TAB* 10 MG PO SCH (07:27)
[2020-02-11] MEDS: Furosemide TAB* 40 MG PO SCH (07:27)
[2020-02-11] MEDS: Ezetimibe TAB* 10 MG PO SCH (07:28)
[2020-02-11] MEDS: Metoprolol Succinate XL TAB* 25 MG PO SCH (07:28)
[2020-02-11] MEDS: MinoXIDil TAB* 2.5 MG TAB PO SCH (07:28)
[2020-02-11] MEDS: Isosorbide Mononitrate ER TAB* 60 MG PO SCH (07:28)
[2020-02-11 08:31] LABS: Hematocrit 27 % (42-52); Mean Corpuscular HGB Conc 34 g/dL (31-36); Mean Corpuscular Hemoglobin 31 pg (27-31); Mean Corpuscular Volume 92 fL (80-94); Mean Platelet Volume 8.2 fL (7.4-10.4); Platelet Count 248 10^3/uL (150-450); Red Blood Count 2.92 10^6 /uL (4.18-5.48); Red Cell Distribution Width 14 % (10-15); White Blood Count 5.7 10^3/uL (3.5-10.8)
[2020-02-11 08:46] LABS: Calcium 8.4 mg/dL (8.6-10.3); EGFR Non-African American 9.1 (>60)
[2020-02-11] MEDS ORDERED: Apixaban* 2.5 MG TAB PO SCH (09:00)
[2020-02-11] MEDS ORDERED: Clopidogrel TAB* 75 MG PO SCH (09:00)
--- NOTE | 2020-02-11 10:26 | PN ---
Progress Note - Progress Note Date of Service: 02/11/20 - NEPHROLOGY FOLLOW UP Note: cc: ESRD HPI: Doing much better today. We had not received dialysis yesterday and we had planned to do his dialysis treatment today. he has good urine output. It was noted that he had 1.8 L in the last 24 hours. He denies any chest pain or shortness of breath at the time on my exam in his room. I saw him later again , during maintenance hemodialysis. He was again sleeping comfortably without any problems durin dialysis treatment. Blood pressure excellent during dialysis treatment which we cut to 2 hours because he will get his regular dialysis treatment tomorrow again. He will be discharged after dialysis and will see him tomorrow in the outpatient clinic. Physical exam Temp Pulse Resp BP SpO2 FiO2 97.6 F 60 16 144/69 97 02/11/20 15:37 02/11/20 15:37 02/11/20 15:37 02/11/20 15:37 02/11/20 15:37 constitutional: No acute distress pleasant and conversant and chest is clear to auscultation Lower extremities without edema is alert and oriented 3 and the morning. Abnormal Lab Results 02/11/20 02/11/20 08:09 08:23 WBC 5.7 RBC 2.92 L Hgb 9.0 L Hct 27 L MCV 92 MCH 31 MCHC 34 RDW 14 Plt Count 248 MPV 8.2 Sodium 133 L Potassium 4.0 Chloride 98 L Carbon Dioxide 25 Anion Gap 10 BUN 56 H Creatinine 6.23 H Est GFR ( Amer) 11.0 Est GFR (Non-Af Amer) 9.1 BUN/Creatinine Ratio 9.0 Glucose 101 H Calcium 8.4 L Assessment and plan: 1. End-stage kidney disease due to hypertension on hemodialysis 3 times a week. Admitted with volume overload. Received an additional dialysis treatment this week due to volume overload. Tolerating today's treatment very well. He will be discharged after hemodialysis today. 2. Hypertension well controlled 3. Volume status much improved but he is still a little bit volume overloaded. Will change Lasix to torsemide 80 mg by mouth twice a day he still has significant residual kidney function 4. Coronary artery disease/a flutter/bradycardia. Status post cardioversion and pacemaker implantation. No anginal episodes today.
--- NOTE | 2020-02-11 10:43 | PN ---
Subjective Date of Service: 02/11/20 - CC: incisional pain Interval History: CC is tenderness at site, no longer SOB. Anxious about his getting updated. No CP. Medications Active Medications: Acetaminophen (Tylenol Tab*) 650 mg PO Q4H PRN PRN Reason: MILD PAIN or TEMP > 100.4 Amlodipine Besylate (Norvasc Tab*) 5 mg PO QPM [facility] Last Admin: 02/10/20 18:30 Dose: 5 mg Apixaban (Eliquis*) 2.5 mg PO BID [facility] Last Admin: 02/11/20 07:27 Dose: 2.5 mg Atorvastatin Calcium (Lipitor*) 80 mg PO BEDTIME [facility] Last Admin: 02/10/20 20:04 Dose: 80 mg Buspirone HCl (Buspar Tab*) 10 mg PO BID [facility] Last Admin: 02/11/20 07:27 Dose: 10 mg Clopidogrel Bisulfate (Plavix Tab*) 75 mg PO DAILY [facility] Last Admin: 02/11/20 07:27 Dose: 75 mg Ezetimibe (Zetia Tab*) 10 mg PO DAILY [facility] Last Admin: 02/11/20 07:28 Dose: 10 mg Finasteride (Proscar Tab*) 5 mg PO QPM [facility] Last Admin: 02/10/20 18:30 Dose: 5 mg Furosemide (Lasix Tab*) 40 mg PO BID [facility] Last Admin: 02/11/20 07:27 Dose: 40 mg Cefazolin Sodium 500 mg/ (Sodium Chloride) 50 mls @ 200 mls/hr IVPB Q24H [facility] Stop: 02/14/20 09:00 Isosorbide Mononitrate (Imdur Er Tab*) 240 mg PO QAM [facility] Last Admin: 02/11/20 07:28 Dose: 240 mg Lisinopril (Prinivil Tab*) 5 mg PO QAM [facility] Last Admin: 02/11/20 07:27 Dose: 5 mg Metoprolol Succinate (Toprol Xl Tab*) 25 mg PO DAILY [facility] Last Admin: 02/11/20 07:28 Dose: 25 mg Minoxidil (Loniten Tab*) 2.5 mg PO BID [facility] Last Admin: 02/11/20 07:28 Dose: 2.5 mg Nitroglycerin (Nitroglycerin Tab 0.4 Mg*) 0.4 mg SL Q5M PRN PRN Reason: ANGINA Ondansetron HCl (Zofran Inj*) 4 mg IV Q4H PRN PRN Reason: NAUSEA/VOMITING Oxycodone/Acetaminophen (Percocet 5/325 Tab*) 1 tab PO Q4H PRN PRN Reason: PAIN - SEVERE Last Admin: 02/11/20 07:28 Dose: 1 tab Sertraline HCl (Zoloft*) 50 mg PO QAM [facility] Last Admin: 02/11/20 07:27 Dose: 50 mg Terazosin HCl (Hytrin Cap*) 5 mg PO BEDTIME [facility] Last Admin: 02/10/20 20:04 Dose: 5 mg Objective Vital Signs: Temp Pulse Resp BP Pulse Ox 97.4 F 60 18 182/75 94 02/11/20 07:00 02/11/20 07:00 02/11/20 09:02 02/11/20 07:00 02/11/20 07:00 Vital Signs - 12 hr Temp Pulse Resp BP Pulse Ox 02/11/20 09:02 18 02/11/20 07:45 18 02/11/20 07:28 18 02/11/20 07:00 97.4 F 60 18 182/75 94 02/11/20 05:27 18 02/11/20 03:27 16 02/11/20 03:20 97.4 F 69 20 150/70 93 02/11/20 00:10 16 02/10/20 23:15 98.1 F 62 20 134/62 95 Intake and Output Last 24 Hours 02/09/20 02/10/20 02/11/20 02/12/20 04:59 04:59 04:59 04:59 Intake Total 360 1890 261 Output Total 750 450 950 950 Balance -390 6460 -687 -950 Weight 235 lb 12.8 oz 222 lb 227 lb 6.4 oz Intake: Medicated IV 100 heparin 100 Heparin 261 Oral 360 1790 Output: Joe 750 450 950 950 Oxygen Devices in Use Now: None Appearance: sitting in bed, NAD. Eyes: No Scleral Icterus, PERRLA - crackles in the bases, mild. Ears/Nose/Mouth/Throat: NL Teeth, Lips, Gums, Mucous Membranes Moist Neck: Trachea Midline, No Thyroid Enlargement, Masses Respiratory: Symmetrical Chest Expansion and Respiratory Effort, - - inspiratory rales noted in bases. respirations are non labored. Cardiovascular: NL Sounds; No Murmurs; No JVD, RRR, - Abdominal: NL Sounds; No Tenderness; No Distention Extremities: - - trace pretibial edema. Fistula RUE intact, +thrill. Skin: No Rash or Ulcers - sallow color c/w chronic renal disease. Incision LUE w/o ecchymosis, no hematoma, no evidence of infection. Neurological: Alert and Oriented x 3, NL Muscle Strength and Tone Lines/Tubes/Other Access: Clean, Dry and Intact Peripheral IV Laboratory Results: 02/11/20 08:09 02/11/20 08:23 INR (Anticoag Therapy) 1.32 (0.82-1.09) H 02/08/20 06:05 APTT 54.9 seconds (26.0-38.0) H 02/10/20 07:59 Total Bilirubin 0.80 mg/dL (0.2-1.0) 02/09/20 08:47 AST 18 U/L (13-39) 02/09/20 08:47 ALT 39 U/L (7-52) 02/09/20 08:47 Alkaline Phosphatase 149 U/L (34-104) H 02/09/20 08:47 B-Natriuretic Peptide 1077 pg/mL (<=100) H 02/08/20 06:05 Total Protein 6.0 g/dL (6.4-8.9) L 02/09/20 08:47 Albumin 3.7 g/dL (3.2-5.2) 02/09/20 08:47 Globulin 2.3 g/dL (2-4) 02/09/20 08:47 Albumin/Globulin Ratio 1.6 (1-3) 02/09/20 08:47 02/08/20 02/08/20 02/08/20 06:05 07:00 11:37 Troponin I 0.38 H* 0.40 H* 1.33 H* Diagnostic Imaging: Patient Name: SIVA FELIZ Medical Record#: [id number] Ordering Physician: Mendy Hawk MD Acct.#: [id number] : 1955 Age: 64 Sex: M Location: EMERGENCY DEPARTMENT Exam Date: 02/08/20556 ADM Status: REG ER Order Information: CHEST AP/PORT Accession Number: [id number] CPT: 58932 INDICATION: Chest pain COMPARISON: February 02, 2020 TECHNIQUE: Upright AP 0630 hours REPORT: Bilateral patchy alveolar opacities. Grossly clear pleural spaces. Negative for pneumothorax. Cardiomegaly. Prominent ill-defined central pulmonary vasculature. Median sternotomy wires. IMPRESSION: #. Pulmonary vascular congestion. #. Peripheral pulmonary infiltrates concerning for pneumonia in the appropriate clinical context. Correlate with clinical assessment. Results discussed with Dr. Little at 02/08/2020 8:20 AM EDT <Electronically signed by Chico Blake MD in OV> 02/08/20820 Dictated By: Chico Blake MD Dictated Date/Time: 02/08/20815 Transcribed Date/Time: 02/08/20815 Copy to: BERRY: *[facility]* [place] [address] Fax #: [phone] Transesophageal Echocardiogram Patient: Siva Feliz : 1955 Study Date: 02/09/2020 Age: 64 Gender: M HR: 78 bpm Height: 72 in /182.9 cm BSA: 2.28 m^2 Weight: 234.5 lb /106.6 kg BMI: 31.9 kg/m^2 *Search Engine Optimization Specialist: * Lizet Pack RDCS RN *Referring Physician: * mAy Epperson *Reading Physician: * Micheal Salvador MD Indications: Atrial Flutter. History: Coronary artery disease. CABG. PCI. Repair of patent foramen ovale. HOWARD. ESRD on dialysis. Risk factors: Hypertension. Dyslipidemia. Conclusions Summary: - Left ventricle: Systolic function is normal. The estimated ejection fraction is 55-60%. Wall motion is normal; there are no regional wall motion abnormalities. - Left atrium: There is no evidence of a thrombus in the atrial cavity or appendage. - Atrial septum: A closure device is present. A bubble study was not performed. - Mitral valve: There is mild regurgitation. - Aortic valve: There is no evidence of stenosis. There is no significant regurgitation. - Tricuspid valve: There is mild regurgitation. - Ascending aorta: The ascending aorta is mildly dilated at 3.6 cm. There is mild atherosclerotic plaque seen in the visualized This report is only to be considered final once signed by the Provider(s) as displayed in the "<Electronically Signed by >" field (s). Absence of a signature indicates the report is in a draft status and still needs to be finalized. In the event this document was created by someone other than the signing Provider, the individual initiating the document will be listed in the "Entered by:" or "Dictated by:" ortiz. Patient Name: SIVA FELIZ Medical Record#: [id number] Ordering Physician: Nora Verde MD Acct.#: [id number] : 1955 Age: 64 Sex: M Location: [address] [place] [address] - MEDICAL/TELEMETRY Exam Date: 02/11/20 0700 ADM Status: ADM IN Order Information: CHEST PA & LAT 2 VWS Accession Number: [id number] CPT: 14083 INDICATION: Device implant COMPARISON: There are no relevant prior studies available for comparison. TECHNIQUE: Dual-energy PA and lateral views of the chest were obtained. FINDINGS: Overlying leads obscure the [id number]. There is no focal airspace opacification or pleural effusion. The heart is enlarged A left chest wall pacemakers in place. No pneumothorax is identified. IMPRESSION: Cardiomegaly with a left chest wall pacemaker. <Electronically signed by Dar Lin MD in OV> 02/11/20755 Dictated By: Dar Lin MD Dictated Date/Time: 02/11/20750 Transcribed Date/Time: 02/11/20750 Copy to: EKG Data: Monitor: NSR, A paced, 12 beat run MM VT last evening with anxiety, tachypnea Pacer interogation today: 6 seconds VT Lead Sensing Impedance Pacing A 1mv 342 Ohms 0.375V @ o.4 ms V 3.6 mV 475 Ohms 0.375V @ 0.4 ms Assessment/Plan 64 yo male with ESRD on HD, CAD with recent stenting, new atrial flutter, did not tolerate, HFpEF, s/p electrical CV with significant SSS, recurrent pauses awake (and hx of this in the past). S/p dual chamber pacer implant 02/10/2020, stable function this AM, CHF on CXR yesterday not seen today. #1 AFL; Chads Vasc 7 on renal dose Eliquis- Resume post implant. Beta kedar added yesterday low dose. NSVT: New, could be from V lead, CAD, anxiety, HTN, CHF or any combination of above. Doubling metoprolol to 50 mg/day. SSS: Pacer implant, uncomplicated. Will need abx 3 more days. Ok to ambulate with assistance #2 Decompensated DHF; Lasix given last evening with good diuresis and clinical improvement. For HD today. #3 CAD -recent NSTEMI due to early restensosis to proximal Lcx and Ramus requiring kissing MARGARET placement to proximal Lcx and ramus kissing fashion extending back into LM. Now on Plavix 75/day in combination with Eliquis 2.5mg PO BID[facility] He lost collateral flow to proximal PDA which has produced angina -on Imdur therapy and Norvasc therapy. -Continue aggressive therapy for angina control, CAD risk. -With pacer, opens option of Brilinta as well (was associated with bradycardia in the past). #4 h/o ESRD on HD; nephrology following.
[2020-02-11] MEDS ORDERED: Metoprolol Succinate XL TAB* 50 MG PO SCH (12:00)
[2020-02-11 15:38] VITALS: BP 144/69
[2020-02-11] MEDS ORDERED: ceFAZolin 500 MG VIAL(*) 500 MG in NS 0.9% 50 ML* 50 ML IVPB SCH (17:00)
[2020-02-11] MEDS: Finasteride TAB* 5 MG PO SCH (17:58)
[2020-02-11] MEDS: amLODIPine TAB* 5 MG PO SCH (17:58)
--- NOTE | 2020-02-11 21:01 | DS ---
DISCHARGE SUMMARY: ADDENDUM: Mr. Watson needs 2 more days of Keflex to cover his postop antibiotics from the pacemaker. [id number]/[facility] #: [id number] [facility]ITAL[facility]rak[facility]
--- NOTE | 2020-02-11 21:43 | DS ---
ADDENDUM NOW INCLUDED ON THIS REPORT CC: Dr. Caban; Dr. Lg Beltre * DISCHARGE SUMMARY: DATE OF ADMISSION: 02/08/20 DATE OF DISCHARGE: 02/11/20 PRINCIPAL DISCHARGE DIAGNOSES: 1. Decompensated diastolic heart failure. 2. Atrial flutter with rapid ventricular response. 3. Coronary artery disease. 4. Nocturnal hypoxia and obstructive sleep apnea. 5. Endstage renal disease. SECONDARY DISCHARGE DIAGNOSES: 1. Anemia. 2. Recent small retroperitoneal bleed. 3. Depression/anxiety. 4. History of a gastrointestinal bleed, on NSAIDs. 5. History of patent foramen ovale closure. 6. Chronic urinary retention with a chronic Joe in place. 7. Diabetes. MEDICATIONS: 1. Finasteride 5 mg q.h.s. 2. Nitroglycerin 0.4 sublingual q.5 minutes p.r.n. chest pain. 3. Imdur 240 mg daily. 4. Cholecalciferol 2000 units daily. 5. Terazosin 5 mg q.h.s. 6. Sertraline 50 mg daily. 7. Minoxidil 2.5 mg b.i.d. 8. Furosemide 40 mg b.i.d. 9. Vitamin B complex/folic acid/zinc 1 tab daily. 10. Lisinopril 5 mg daily. 11. Plavix 75 mg daily. 12. Rosuvastatin 40 mg q.h.s. 13. Vitamin C 1000 mg daily. 14. Pepcid 20 mg every other day. 15. [place]-3 1080 mg t.i.d. 16. Buspirone 10 mg b.i.d. 17. Ammonium lactate 12% transdermally daily p.r.n. 18. Eliquis 2.5 mg b.i.d. 19. Toprol-XL 25 mg daily. 20. Zetia 10 mg daily. 21. Amlodipine 5 mg q.h.s. PHYSICAL EXAMINATION ON THE DAY OF DISCHARGE: General: Alert, depressed- appearing man, in no distress, resting in bed. He was also seen ambulating in the unit with physical therapy with no respiratory distress or accessory muscle use. Vital Signs: Temperature 97.6, heart rate 60, respiratory rate 16, pulse ox 97% on room air, blood pressure 144/69. HEENT: Pupils equal, round, and reactive to light. Oral mucosa is moist. Neck: No JVP, no adenopathy. Chest: He is in a regular rate and rhythm. There is a pacer on the left chest wall and the left upper extremity is immobilized. He has no surrounding hematoma or erythema or drainage from the dressing. Abdomen: Soft, nontender, nondistended , no guarding or rebound. Extremities: No edema, rashes or ulcers. CONSULTATION DURING THIS ADMISSION: Dr. Micheal Salvador and Dr. Nora Verde of Cardiology and Dr. Brenda Sotelo of Nephrology. PERTINENT STUDIES ON THIS ADMISSION: A transesophageal echocardiogram with cardioversion from 02/09/20 showed LVEF of 55% to 60% with no regional wall motion abnormalities. No left atrial thrombus. Mild mitral regurgitation. Mild tricuspid regurgitation. Ascending aorta is mildly dilated at 3.6 cm and pulmonary artery pressure could not be accurately estimated. HOSPITAL COURSE BY PROBLEM: 1. Decompensated diastolic dysfunction. Mr. Watson's chief complaint was shortness of breath at the time of admission. There had been no recent changes in his dialysis regimen or his diet; however, he was noted to be in new atrial flutter with rapid ventricular response. He had had signs of sick sinus syndrome in the past, but when Cardiology was consulted they suspected that the atrial flutter was the likely cause of his decompensation and shortness of breath. They proposed a transesophageal echocardiogram with cardioversion to see if his volume status and heart failure would respond better to normal sinus rhythm. They did this with the knowledge that he had a history of sick sinus syndrome and may ultimately need a pacemaker. The transesophageal echocardiogram with cardioversion was successful and completed on 02/09/20. After that, he was transferred to the ICU for monitoring and he did indeed have sinus pauses overnight that evening. A permanent pacemaker was implanted on and his postop course was uneventful. He remained euvolemic and permanently paced since that time. He was resumed on his anticoagulation and his beta-kedar was continued. He felt well on the day of discharge and is ambulating in the hallways on room air. 2. Coronary artery disease. He has an extensive and complicated history of coronary disease and there was some concern about whether another coronary event may have led to his decompensation; however, his troponin trend was not suggestive of an NSTEMI and Cardiology did not wish to pursue a further ischemic evaluation. 3. Nocturnal hypoxia. Since he complained of ongoing shortness of breath and PND overnight, we did a trending pulse ox overnight and he was indeed noted to be hypoxic. We submitted this information to [facility] to get him nocturnal oxygen; however, because he had already been referred for sleep apnea and has a diagnosis of sleep apnea, he did not qualify for nocturnal oxygen as it was recommended that he have a CPAP instead. This information was explained to him and he was strongly encouraged to follow up and pursue a sleep study and CPAP, which Dr. Caban had ordered for him. 4. Endstage renal disease. He is to continue on his Saturday, Saturday, Saturday schedule. He did a receive a session on 02/11/20 because he had missed 1 the day prior and he will go back to his usual schedule tomorrow 02/12/20. DISPOSITION: Mr. Watson is being discharged to home on 02/11/20 after working with physical therapy. He will be under the care of his . CONDITION AT THE TIME OF DISCHARGE: Stable. FOLLOWUP NEEDED: I have arranged followup for Mr. Watson with his carpentry foreman, Dr. Beltre. He will also see his primary care physician within 1 week of discharge and he will go back to hemodialysis tomorrow. He is instructed to keep the left upper extremity immobilized for 6 weeks and have a wound check with Dr. Beltre next week. TIME SPENT: Forty minutes was spent on this discharge. ADDENDUM: Mr. Watson needs 2 more days of Keflex to cover his postop antibiotics from the pacemaker. [id number]/[facility] #: [id number] A- [id number]/[facility] #: [id number] [facility]
== END 2020-02-11 18:30 | disposition home or self-care (01) | DRG 242 ==
LOC: ED 05:40 → MEDTELE 09:00 → ICU 02-09 17:24 → MEDTELE 02-10 12:12
PROVIDERS: ADMIT Internal Medicine; ATTEND Internal Medicine
PROC: 5A1D70Z Performance of Urinary Filtration, Intermittent, Less than 6 Hours Per Day (ICD-10-PCS; 2020-02-08)
PROC: B24BZZ4 Ultrasonography of Heart with Aorta, Transesophageal (ICD-10-PCS; 2020-02-09)
PROC: 5A2204Z Restoration of Cardiac Rhythm, Single (ICD-10-PCS; 2020-02-09)
PROC: 02HK3JZ Insertion of Pacemaker Lead into Right Ventricle, Percutaneous Approach (ICD-10-PCS; 2020-02-10)
PROC: 02H63JZ Insertion of Pacemaker Lead into Right Atrium, Percutaneous Approach (ICD-10-PCS; 2020-02-10)
PROC: 0JH606Z Insertion of Pacemaker, Dual Chamber into Chest Subcutaneous Tissue and Fascia, Open Approach (ICD-10-PCS; principal; 2020-02-10 10:30)
DX: I13.2 Hypertensive heart and chronic kidney disease with heart failure and with stage 5 chronic kidney disease, or end stage renal disease (principal); N18.6 End stage renal disease; I50.33 Acute on chronic diastolic (congestive) heart failure; I48.92 Unspecified atrial flutter; I47.2 Ventricular tachycardia; I49.5 Sick sinus syndrome; E11.22 Type 2 diabetes mellitus with diabetic chronic kidney disease; I50.84 End stage heart failure; I25.10 Atherosclerotic heart disease of native coronary artery without angina pectoris; E78.00 Pure hypercholesterolemia, unspecified; E11.51 Type 2 diabetes mellitus with diabetic peripheral angiopathy without gangrene; G47.33 Obstructive sleep apnea (adult) (pediatric); J42 Unspecified chronic bronchitis; K21.9 Gastro-esophageal reflux disease without esophagitis; M19.042 Primary osteoarthritis, left hand; M19.041 Primary osteoarthritis, right hand; I48.91 Unspecified atrial fibrillation; D63.1 Anemia in chronic kidney disease; E78.5 Hyperlipidemia, unspecified; I27.20 Pulmonary hypertension, unspecified; R79.89 Other specified abnormal findings of blood chemistry; I25.5 Ischemic cardiomyopathy; I34.0 Nonrheumatic mitral (valve) insufficiency; D50.9 Iron deficiency anemia, unspecified; M19.012 Primary osteoarthritis, left shoulder; M19.011 Primary osteoarthritis, right shoulder; F41.9 Anxiety disorder, unspecified; D63.8 Anemia in other chronic diseases classified elsewhere; F32.9 Major depressive disorder, single episode, unspecified; Z99.2 Dependence on renal dialysis; Z86.74 Personal history of sudden cardiac arrest; Z95.1 Presence of aortocoronary bypass graft; I25.2 Old myocardial infarction; Z88.2 Allergy status to sulfonamides; Z86.73 Personal history of transient ischemic attack (TIA), and cerebral infarction without residual deficits; Z95.5 Presence of coronary angioplasty implant and graft; Z85.820 Personal history of malignant melanoma of skin; Z79.02 Long term (current) use of antithrombotics/antiplatelets; Z79.01 Long term (current) use of anticoagulants; Z79.899 Other long term (current) drug therapy
CPT/HCPCS: 33208; 36415; 71045; 71046; 80048; 80053; 82550; 82565; 83605; 83880; 84484; 84520; 85025; 85027; 85610; 85730; 92960; 93005; 93312; 93325; 99156; 99157; 99284; A9270-GY; C1785; C1892; C1898; J0690; J1940; J2250; J2310; J3010; Q5106

== ENCOUNTER 2023-12-25 16:37 | Inpatient (IN) ==
[2023-12-25 17:59] LABS: ABS Lymphocytes 0.2 10^3/uL (1.0-4.8); ABS Monocytes 0.8 10^3/uL (0.0-1.1); ABS Neutrophils 9.9 10^3/uL (1.5-7.6); Hematocrit 23.1 % (38-53); Hemoglobin 8.2 g/dL (13.2-16.3); Lymphocyte % 2.2 %; Mean Corpuscular Hemoglobin 33.2 pg (27-33); Mean Corpuscular Hgb Conc 35.4 g/dL (31-36); Mean Platelet Volume 9.9 fL (7.5-11.2); Platelet Count 101 10^3/uL (150-450); Red Blood Count 2.46 10^6/uL (4.06-5.63); Red Cell Distribution Width 14.2 % (12-17); White Blood Count 10.9 10^3/uL (3.6-10.2)
[2023-12-25 18:00] LABS: Urine Appearance Cloudy; Urine Bilirubin Negative (Negative); Urine Blood 2+ (Negative); Urine Color Yellow; Urine Glucose Negative (Negative); Urine Ketones Negative (Negative); Urine Nitrite Negative (Negative); Urine Protein 2+(100 mg/dL) (Negative); Urine Specific Gravity 1.001 (1.002-1.030); Urine Urobilinogen Negative (Negative)
[2023-12-25 18:22] LABS: High Sensitivity Troponin 1 Hr 178 pg/mL (<20)
[2023-12-25 18:30] LABS: Urine Bacteria 1+ (Absent); Urine Red Blood Cell Trace(0-2/hpf) (Absent); Urine White Blood Cell Trace(0-5/hpf) (Absent)
[2023-12-25 18:38] LABS: TSH Ultra Thyroid Stim Horm 2.6 mcIU/mL (0.34-5.60)
[2023-12-25 18:55] LABS: Albumin 4.1 g/dL (3.2-5.2); Albumin/Globulin Ratio 1.4 (1-3); Calcium 10.2 mg/dL (8.6-10.3); Creatinine, Serum 5.48 mg/dL (0.67-1.17); Potassium 3.8 mmol/L (3.5-5.0); Total Protein 7.1 g/dL (6.4-8.9); eGFR CKD-EPI 10.5 (>60)
[2023-12-25 18:56] LABS: C Reactive Protein 339.31 mg/L (<8.01); Total Bilirubin 1.1 mg/dL (0.2-1.0)
[2023-12-25] MEDS: cefTRIAXone 1 gm/50 mL D5W 1 GM/50 ML BAG IV ONE (19:21)
[2023-12-25] MEDS: Lactated Ringers 1000 ml BAG 500 ML IV ONE (19:24)
[2023-12-25] MEDS: Vancomycin 1,250 MG in NS 0.9% 250 ml 250 ML IVPB ONE (22:58)
[2023-12-25] MEDS ORDERED: Senna TAB 8.6 mg TAB PO PRN (23:01)
[2023-12-26] MEDS: Heparin 5000 UNITS/ML 1 mL VIAL SUBCUT SCH (06:27)
[2023-12-26 06:55] LABS: Hematocrit 22.9 % (38-53); Hemoglobin 8.1 g/dL (13.2-16.3); Mean Corpuscular Hemoglobin 33.2 pg (27-33); Mean Corpuscular Hgb Conc 35.3 g/dL (31-36); Mean Corpuscular Volume 94.1 fL (80-97); Mean Platelet Volume 10.2 fL (7.5-11.2); Platelet Count 92 10^3/uL (150-450); Red Blood Count 2.44 10^6/uL (4.06-5.63); Red Cell Distribution Width 14.1 % (12-17); White Blood Count 10.8 10^3/uL (3.6-10.2)
[2023-12-26 07:10] LABS: Calcium 9.5 mg/dL (8.6-10.3); Creatinine, Serum 6.77 mg/dL (0.67-1.17); Potassium 3.9 mmol/L (3.5-5.0); eGFR CKD-EPI 8.2 (>60)
[2023-12-26 07:27] LABS: ABS Lymphocytes 0.6 10^3/uL (1.0-4.8); ABS Monocytes 0.9 10^3/uL (0.0-1.1); ABS Neutrophils 9.2 10^3/uL (1.5-7.6); Eosinophil % 0.2 %; Lymphocyte % 5.5 %; RBC Morphology Normal (Normal)
[2023-12-26] MEDS ORDERED: Albumin Human 25% 25 GM/100 ML BTL IV PRN (14:12)
[2023-12-26] MEDS ORDERED: NS 0.9% 1000 ml BAG 100 ML IV PRN (14:12)
[2023-12-26] MEDS ORDERED: NS 0.9% 1000 ml BAG 200 ML IV PRN (14:12)
[2023-12-26 16:54] LABS: Hepatitis B Surface Antigen Nonreactive (Nonreactive)
[2023-12-26 17:11] LABS: Hepatitis B Surface Ab Immune (Immune)
[2023-12-26] MEDS: cefTRIAXone 1 gm/50 mL D5W 1 GM/50 ML BAG IV SCH (18:24)
[2023-12-27 06:23] LABS: ABS Lymphocytes 0.7 10^3/uL (1.0-4.8); ABS Monocytes 1.2 10^3/uL (0.0-1.1); ABS Neutrophils 8.6 10^3/uL (1.5-7.6); Eosinophil % 0.2 %; Hematocrit 22.5 % (38-53); Hemoglobin 7.8 g/dL (13.2-16.3); Lymphocyte % 6.3 %; Mean Corpuscular Hgb Conc 34.9 g/dL (31-36); Mean Corpuscular Volume 94.5 fL (80-97); Mean Platelet Volume 10.4 fL (7.5-11.2); Platelet Count 107 10^3/uL (150-450); Red Blood Count 2.38 10^6/uL (4.06-5.63); White Blood Count 10.5 10^3/uL (3.6-10.2)
[2023-12-27 06:40] LABS: Albumin 3.4 g/dL (3.2-5.2); Albumin/Globulin Ratio 1.2 (1-3); Calcium 9.8 mg/dL (8.6-10.3); Creatinine, Serum 8.45 mg/dL (0.67-1.17); Globulin 2.8 g/dL (2-4); Potassium 4.1 mmol/L (3.5-5.0); Total Bilirubin 0.5 mg/dL (0.2-1.0); Total Protein 6.2 g/dL (6.4-8.9); eGFR CKD-EPI 6.3 (>60)
[2023-12-27] MEDS: Heparin 1,000 UNIT/ML 10 ml (10,000 UNITS) CATHLAB/DIALYSIS DIALYSIS PRN (08:30)
[2023-12-27] MEDS: cefTRIAXone 1 gm/50 mL D5W 1 GM/50 ML BAG IV SCH (10:10)
[2023-12-27] MEDS: Pentafluoroprop/Tetrafluoro 1 SPRAY TOP.SPRAY TOPICAL SCH (12:26)
[2023-12-28 06:57] LABS: ABS Lymphocytes 0.6 10^3/uL (1.0-4.8); ABS Monocytes 1.3 10^3/uL (0.0-1.1); ABS Neutrophils 8.5 10^3/uL (1.5-7.6); ABS Nucleated RBC 0.01 10^3/ul; Eosinophil % 0.1 %; Hematocrit 22.9 % (38-53); Hemoglobin 7.9 g/dL (13.2-16.3); Lymphocyte % 6.1 %; Mean Corpuscular Hemoglobin 32.4 pg (27-33); Mean Corpuscular Hgb Conc 34.6 g/dL (31-36); Mean Corpuscular Volume 93.7 fL (80-97); Mean Platelet Volume 10.2 fL (7.5-11.2); Platelet Count 141 10^3/uL (150-450); Red Blood Count 2.45 10^6/uL (4.06-5.63); Red Cell Distribution Width 14.1 % (12-17); White Blood Count 10.4 10^3/uL (3.6-10.2)
[2023-12-28 07:25] LABS: Calcium 9.5 mg/dL (8.6-10.3); Creatinine, Serum 6.68 mg/dL (0.67-1.17); Potassium 4.1 mmol/L (3.5-5.0); eGFR CKD-EPI 8.3 (>60)
[2023-12-28] MEDS: metroNIDAZOLE IV 500 MG/100ML 500 MG/100 ML BAG IVPB SCH (18:46)
[2023-12-29 07:15] LABS: Hematocrit 22.8 % (38-53); Hemoglobin 7.8 g/dL (13.2-16.3); Mean Corpuscular Hemoglobin 32.2 pg (27-33); Mean Corpuscular Hgb Conc 34.4 g/dL (31-36); Mean Corpuscular Volume 93.5 fL (80-97); Mean Platelet Volume 9.9 fL (7.5-11.2); Platelet Count 179 10^3/uL (150-450); Red Blood Count 2.43 10^6/uL (4.06-5.63); Red Cell Distribution Width 14.2 % (12-17); White Blood Count 11.8 10^3/uL (3.6-10.2)
[2023-12-29 07:33] LABS: Calcium 9.4 mg/dL (8.6-10.3); Creatinine, Serum 8.17 mg/dL (0.67-1.17); eGFR CKD-EPI 6.5 (>60)
[2023-12-29 09:22] LABS: ABS Eosinophils 0.2 10^3/uL (0.0-0.5); ABS Lymphocytes 1.1 10^3/uL (1.0-4.8); ABS Neutrophils 9.5 10^3/uL (1.5-7.6); ABS Nucleated RBC 0.01 10^3/ul; Eosinophil % 1.5 %; Lymphocyte % 9.1 %; Nucleated Red Blood Cells % 0.1 %/100WBC (0.0-0.8)
[2023-12-30 06:57] LABS: Hemoglobin 7.5 g/dL (13.2-16.3); Mean Corpuscular Hemoglobin 32.2 pg (27-33); Mean Corpuscular Hgb Conc 34.3 g/dL (31-36); Mean Corpuscular Volume 93.7 fL (80-97); Mean Platelet Volume 9.3 fL (7.5-11.2); Platelet Count 221 10^3/uL (150-450); Red Blood Count 2.34 10^6/uL (4.06-5.63); Red Cell Distribution Width 14.1 % (12-17); White Blood Count 11.1 10^3/uL (3.6-10.2)
[2023-12-30 07:18] LABS: Calcium 9.2 mg/dL (8.6-10.3); Creatinine, Serum 9.7 mg/dL (0.67-1.17); Magnesium 2.1 mg/dL (1.9-2.7); eGFR CKD-EPI 5.3 (>60)
[2023-12-30 07:25] LABS: ABS Basophils 0.1 10^3/uL (0.0-0.1); ABS Eosinophils 0.2 10^3/uL (0.0-0.5); ABS Monocytes 0.8 10^3/uL (0.0-1.1); Lymphocyte % 8.9 %
[2023-12-30 07:26] LABS: RBC Morphology Normal (Normal); Smudge Cells Present
[2023-12-31 06:31] LABS: Hematocrit 21.2 % (38-53); Hemoglobin 7.3 g/dL (13.2-16.3); Mean Corpuscular Hemoglobin 32.5 pg (27-33); Mean Corpuscular Hgb Conc 34.3 g/dL (31-36); Mean Corpuscular Volume 94.7 fL (80-97); Mean Platelet Volume 9.1 fL (7.5-11.2); Platelet Count 219 10^3/uL (150-450); Red Blood Count 2.24 10^6/uL (4.06-5.63); Red Cell Distribution Width 14.3 % (12-17); White Blood Count 10.2 10^3/uL (3.6-10.2)
[2023-12-31 06:37] LABS: Calcium 8.9 mg/dL (8.6-10.3); Creatinine, Serum 7.18 mg/dL (0.67-1.17); Magnesium 1.8 mg/dL (1.9-2.7); Potassium 3.9 mmol/L (3.5-5.0); eGFR CKD-EPI 7.6 (>60)
[2023-12-31 07:22] LABS: ABS Eosinophils 0.2 10^3/uL (0.0-0.5); ABS Lymphocytes 1.3 10^3/uL (1.0-4.8); ABS Monocytes 0.9 10^3/uL (0.0-1.1); ABS Neutrophils 7.7 10^3/uL (1.5-7.6); Eosinophil % 2.2 %; Lymphocyte % 12.9 %
[2023-12-31 14:34] VITALS: BP 113/61
== END 2023-12-31 18:35 | disposition home or self-care (01) | DRG 871 ==
LOC: ED 16:37 → EDHOLD 16:37 → SUATTDRO 23:01 → MED 12-26 11:25 → SUATTDRO 12-26 15:00
PROVIDERS: ADMIT Internal Medicine; ATTEND Internal Medicine

== ENCOUNTER 2024-02-09 16:22 | Inpatient (IN) ==
[2024-02-09 17:08] LABS: ABS Basophils 0.1 10^3/uL (0.0-0.1); ABS Eosinophils 0.1 10^3/uL (0.0-0.5); ABS Lymphocytes 1.1 10^3/uL (1.0-4.8); ABS Monocytes 0.5 10^3/uL (0.0-1.1); ABS Neutrophils 4.1 10^3/uL (1.5-7.6); Eosinophil % 1.8 %; Hematocrit 26.9 % (38-53); Hemoglobin 9.5 g/dL (13.2-16.3); Lymphocyte % 19.1 %; Mean Corpuscular Hemoglobin 33.1 pg (27-33); Mean Corpuscular Hgb Conc 35.2 g/dL (31-36); Mean Corpuscular Volume 94.1 fL (80-97); Nucleated Red Blood Cells % 0.1 %/100WBC (0.0-0.8); Platelet Count 126 10^3/uL (150-450); Red Blood Count 2.86 10^6/uL (4.06-5.63); Red Cell Distribution Width 14.9 % (12-17); White Blood Count 5.9 10^3/uL (3.6-10.2)
[2024-02-09 17:24] LABS: INR 1.08 (0.83-1.13)
[2024-02-09 17:36] LABS: Albumin 3.9 g/dL (3.2-5.2); Albumin/Globulin Ratio 2.1 (1-3); Calcium 9.2 mg/dL (8.6-10.3); Creatinine, Serum 8.17 mg/dL (0.67-1.17); Globulin 1.9 g/dL (2-4); Potassium 3.9 mmol/L (3.5-5.0); Total Bilirubin 0.6 mg/dL (0.2-1.0); Total Protein 5.8 g/dL (6.4-8.9); eGFR CKD-EPI 6.5 (>60)
[2024-02-09 18:30] LABS: High Sensitivity Troponin 1 Hr 75 pg/mL (<20)
[2024-02-09 22:32] LABS: C Reactive Protein 1.77 mg/L (<8.01)
[2024-02-09 22:47] LABS: TSH Ultra Thyroid Stim Horm 1.88 mcIU/mL (0.34-5.60)
[2024-02-10 05:36] LABS: ABS Eosinophils 0.1 10^3/uL (0.0-0.5); ABS Lymphocytes 1.1 10^3/uL (1.0-4.8); ABS Monocytes 0.5 10^3/uL (0.0-1.1); ABS Neutrophils 6.9 10^3/uL (1.5-7.6); Eosinophil % 0.7 %; Hematocrit 28.1 % (38-53); Hemoglobin 9.8 g/dL (13.2-16.3); Lymphocyte % 12.3 %; Mean Corpuscular Hemoglobin 33.1 pg (27-33); Mean Corpuscular Hgb Conc 34.9 g/dL (31-36); Mean Corpuscular Volume 94.7 fL (80-97); Mean Platelet Volume 10.9 fL (7.5-11.2); Platelet Count 127 10^3/uL (150-450); Red Blood Count 2.96 10^6/uL (4.06-5.63); Red Cell Distribution Width 14.9 % (12-17); White Blood Count 8.5 10^3/uL (3.6-10.2)
[2024-02-10 06:06] LABS: Calcium 9.3 mg/dL (8.6-10.3); Creatinine, Serum 8.87 mg/dL (0.67-1.17); Potassium 4.1 mmol/L (3.5-5.0); eGFR CKD-EPI 5.9 (>60)
[2024-02-10] MEDS ORDERED: NS 0.9% 1000 ml BAG 200 ML IV PRN (10:57)
[2024-02-10] MEDS ORDERED: NS 0.9% 1000 ml BAG 100 ML IV PRN (10:57)
[2024-02-10] MEDS ORDERED: Albumin Human 25% 25 GM/100 ML BTL IV PRN (10:57)
[2024-02-10 11:10] LABS: PCO2 Arterial 34 mmHg (35-45); PO2 Arterial 73 mmHg (80-100)
[2024-02-10] MEDS: Heparin 1,000 UNIT/ML 10 ml (10,000 UNITS) CATHLAB/DIALYSIS DIALYSIS PRN (13:30)
[2024-02-10] MEDS ORDERED: NON FORMULARY MED (Omeprazole 20 mg Tablet,Delayed Release (Dr/Ec)) PO SCH (21:00)
[2024-02-11 06:31] LABS: ABS Eosinophils 0.1 10^3/uL (0.0-0.5); ABS Lymphocytes 1.1 10^3/uL (1.0-4.8); ABS Monocytes 0.6 10^3/uL (0.0-1.1); ABS Neutrophils 4.9 10^3/uL (1.5-7.6); Eosinophil % 1.2 %; Hematocrit 26.3 % (38-53); Hemoglobin 9.2 g/dL (13.2-16.3); Lymphocyte % 16.9 %; Mean Corpuscular Hemoglobin 32.6 pg (27-33); Mean Corpuscular Hgb Conc 34.9 g/dL (31-36); Mean Corpuscular Volume 93.5 fL (80-97); Mean Platelet Volume 11.2 fL (7.5-11.2); Platelet Count 114 10^3/uL (150-450); Red Blood Count 2.81 10^6/uL (4.06-5.63); Red Cell Distribution Width 14.8 % (12-17); White Blood Count 6.8 10^3/uL (3.6-10.2)
[2024-02-11 06:50] LABS: Creatinine, Serum 6.25 mg/dL (0.67-1.17); Potassium 3.7 mmol/L (3.5-5.0)
[2024-02-11 12:22] LABS: Hepatitis B Surface Antigen Nonreactive (Nonreactive)
[2024-02-11 12:39] LABS: Hepatitis B Surface Ab Immune (Immune)
[2024-02-11] MEDS: Pentafluoroprop/Tetrafluoro 1 SPRAY TOP.SPRAY TOPICAL ONE (22:12)
[2024-02-12 07:01] LABS: ABS Eosinophils 0.2 10^3/uL (0.0-0.5); ABS Lymphocytes 1.2 10^3/uL (1.0-4.8); ABS Monocytes 0.7 10^3/uL (0.0-1.1); ABS Neutrophils 4.8 10^3/uL (1.5-7.6); Eosinophil % 2.3 %; Hematocrit 26.6 % (38-53); Hemoglobin 9.2 g/dL (13.2-16.3); Lymphocyte % 17.6 %; Mean Corpuscular Hemoglobin 32.4 pg (27-33); Mean Corpuscular Hgb Conc 34.4 g/dL (31-36); Mean Corpuscular Volume 94.1 fL (80-97); Mean Platelet Volume 10.4 fL (7.5-11.2); Platelet Count 118 10^3/uL (150-450); Red Blood Count 2.83 10^6/uL (4.06-5.63); Red Cell Distribution Width 14.5 % (12-17)
[2024-02-12 07:59] LABS: Creatinine, Serum 5.5 mg/dL (0.67-1.17); Potassium 3.7 mmol/L (3.5-5.0); eGFR CKD-EPI 10.5 (>60)
[2024-02-12] MEDS ORDERED: Pentafluoroprop/Tetrafluoro 1 SPRAY TOP.SPRAY TOPICAL ONE (09:00)
[2024-02-12 17:59] VITALS: BP 151/78
== END 2024-02-12 18:40 | disposition home or self-care (01) | DRG 640 ==
LOC: EDHOLD 16:22 → ED 16:22 → SUATTDRO 18:00 → OBSVTOIN 21:57 → EDHOLD 02-10 05:27 → MED 02-10 13:03
PROVIDERS: ADMIT Internal Medicine; ATTEND Hospitalist